=== PATIENT | female | born 1945 | race Caucasian/White ===

== ENCOUNTER 2016-11-19 19:43 | Inpatient (IN) ==
[2016-11-19] MEDS ORDERED: FUROSEMIDE 40 MG/4 ML VIAL IV ONE (20:17)
--- NOTE | 2016-11-19 20:17 | Emergency Department Note ---
General Adult HPI - General Chief complaint: Weakness Stated complaint: Frustrated about Care Time Seen by Provider: 11/19/16 20:13 Mode of arrival: EMS - History of Present Illness HPI Narrative: This patient comes in from the detention because she feels like her weight is not coming down on Lasix fast enough. She says she does feel short of breath although her lungs are clear. Denies chest pain or other symptoms. - Related Data Home Medications Medication Instructions Recorded Confirmed Gabapentin 600 mg PO BID 07/02/15 11/11/16 Insulin Lispro [Humalog] 0 unit SQ ACHS 07/02/15 11/11/16 Sotalol HCl [Sorine] 80 mg PO BID 07/02/15 11/11/16 Hydrocodone/APAP 7.5/325Mg [Palmer 1 tab PO Q4HP PRN 07/03/15 11/11/16 7.5/325Mg] Levothyroxine Sodium [Synthroid] 112 mcg PO QAMAC 07/03/15 11/11/16 atorvastatin 80 mg tablet 80 mg PO QDAY 09/28/15 11/11/16 Albuterol Sulfate [Ventolin] 2 puff INH Q4-6HP PRN 11/10/16 11/11/16 Furosemide [Lasix] 40 mg PO QDAY PRN 11/10/16 11/11/16 Lactobacillus Acidophilus 1 each PO BID 11/10/16 11/11/16 [Acidophilus] levETIRAcetam [Levetiracetam] 500 mg PO BID 11/10/16 11/11/16 Bisacodyl [Dulcolax] 10 mg AR PRN PRN 11/11/16 11/11/16 Fleets Adult 7 - 19 gm AR PRN PRN 11/11/16 11/11/16 Milk of Magnesia 30 ml PO PRN PRN 11/11/16 11/11/16 Multivit-Min/FA/Lycopen/Lutein [A 1 tablet PO DAILY 11/11/16 11/11/16 Thru Z Select Multivit Tab] Plavix 75 mg PO DAILY 11/11/16 11/11/16 Previous Rx's Medication Instructions Recorded Accu-Chek 1 each FS ACHS #30 strip 07/05/15 Insulin Glargine,Hum.rec.anlog 10 unit SQ DAILY 30 Days 07/05/15 [Lantus Solostar] Carvedilol [Coreg] 12.5 mg PO BIDCC #30 tablet 11/14/16 Cefdinir 300 mg PO BID #10 capsule 11/14/16 Isosorbide Dinitrate [Isordil] 20 mg PO TIDAC #60 tablet 11/14/16 hydrALAZINE [Apresoline] 25 mg PO TID #60 tablet 11/14/16 Allergies Allergy/AdvReac Type Severity Reaction Status Date / Time Milk Containing Products AdvReac Mild Gastrointestinal Verified 11/19/16 19:52 Upset Review of Systems All systems ED: reviewed and negative except as stated. Past Medical History - Past Medical History Medical history: Reports: atrial fibrillation, CHF, coronary artery disease, CVA , diabetes, hyperlipidemia, hypertension, thyroid disease, other Surgical history ED: Reports: angioplasty/stent, appendectomy, cataract, hysterectomy, knee replacement, pacemaker/AICD, tonsillectomy, other - Social History Alcohol use: Reports: None Drug use: Reports: none Physical Exam - General Limitations: no limitations General appearance: alert - Head Head exam: atraumatic - Eye Eye exam: Present: normal appearance - ENT ENT exam: normal exam - Neck Neck exam: Present: normal inspection - Chest Chest inspection: Present: normal inspection - Respiratory Respiratory exam: Present: normal lung sounds bilaterally - Cardiovascular Cardiovascular exam: Present: regular rate, normal rhythm, normal heart sounds - Abdominal Exam Abdominal exam: Present: soft. Absent: distention, tenderness - Neurological Exam Neurological exam: Present: alert - Psychiatric Psychiatric exam: Present: normal affect - Skin Skin exam: Present: warm, dry Course Vital Signs Temperature 98.6 F 11/19/16 19:44 Pulse Rate 64 11/19/16 19:44 Respiratory Rate 16 11/19/16 19:44 Blood Pressure 131/59 11/19/16 19:44 Pulse Oximetry (%) 92 11/19/16 19:44 Temperature 98.6 F 11/19/16 19:44 Pulse Rate 60 11/19/16 20:56 Respiratory Rate 16 11/19/16 19:44 Blood Pressure 133/60 11/19/16 20:56 Pulse Oximetry (%) 88 L 11/19/16 20:56 Medical Decision Making - Lab Data Lab results reviewed: Yes I reviewed the patient's lab results. Result diagrams: 11/19/16 20:24 11/19/16 20:23 Lab Results 11/19/16 11/19/16 11/19/16 Range/Units 20:23 20:24 20:24 WBC 4.9 (4.5-11.0) K/mcL RBC 2.74 L (4.00-5.20) M/mcL Hgb 8.1 L (12.0-15.0) g/dL Hct 24.9 L (36.0-48.0) % MCV 91.1 (80.0-100.0) fL MCH 29.4 (26.0-34.0) pg MCHC 32.3 (31.0-36.0) g/dL RDW 16.4 H (11.5-14.5) % Plt Count 211 (140-440) K/mcL MPV 7.9 (7.4-10.4) fL Gran % 61.1 (38.0-78.0) % Lymph % (Auto) 24.6 (15.5-49.0) % Frio % (Auto) 9.1 (1.0-12.0) % Eos % (Auto) 4.1 (0.0-7.0) % Baso % (Auto) 1.1 (0.0-2.0) % Gran # 3.0 (1.8-8.0) K/mcL Lymph # 1.2 L (1.5-4.8) K/mcL Frio # 0.5 (0.1-0.9) K/mcL Eos # 0.2 (0.0-0.7) K/mcL Baso # 0.1 (0.0-0.3) K/mcL Sodium 138 (133-145) mmol/L Potassium 5.7 H (3.3-5.1) mmol/L Chloride 97 (96-108) mmol/L Carbon Dioxide 27 (22-30) mmol/L Anion Gap 14.0 (8-16) BUN 70 H (8-23) mg/dl Creatinine 2.8 H (0.6-1.1) mg/dl GFR Calculation 16 Glucose 129 H (70-105) mg/dL Calcium 8.1 L (8.6-10.4) mg/dl Total Bilirubin 0.2 (0.0-1.0) mg/dL AST 118 H (0-37) U/l ALT 57 H (0-40) U/l Alkaline Phosphatase 138 H (39-117) U/L Troponin T 0.03 (0-0.03) ng/ml NT-Pro-B Natriuret Pep 61384.0 H (0-125) pg/ml Total Protein 5.7 L (5.9-8.4) gm/dL Albumin 3.0 L (3.2-5.2) gm/dL Globulin 2.7 (2.2-3.7) gm/dL Albumin/Globulin Ratio 1.1 (1.0-2.3) - Radiology Data Radiology results reviewed: Yes I reviewed the patient's radiology results. ( chest x-ray consistent with some heart failure) Disposition Clinical Impression: Congestive heart failure Disposition: Xfer As Inpt ([facility]) Condition: Good Referrals: Scott Madrid MD [Primary Care Provider] - Time of Disposition: 21:45
[2016-11-19 20:57] LABS: Basophils # (Auto) 0.1 K/mcL (0.0-0.3); Basophils % (Auto) 1.1 % (0.0-2.0); Eosinophils # (Auto) 0.2 K/mcL (0.0-0.7); Eosinophils % (Auto) 4.1 % (0.0-7.0); Granulocytes % (Auto) 61.1 % (38.0-78.0); Lymphocytes # (Auto) 1.2 K/mcL (1.5-4.8); Lymphocytes % (Auto) 24.6 % (15.5-49.0); Mean Cell Volume 91.1 fL (80.0-100.0); Mean Corpuscular HGB Conc 32.3 g/dL (31.0-36.0); Mean Corpuscular Hemoglobin 29.4 pg (26.0-34.0); Monocytes # (Auto) 0.5 K/mcL (0.1-0.9); Monocytes % (Auto) 9.1 % (1.0-12.0); Platelet Count 211 K/mcL (140-440); RBC 2.74 M/mcL (4.00-5.20); Red Cell Distribution Width 16.4 % (11.5-14.5)
--- NOTE | 2016-11-19 21:03 | XRay Report ---
HISTORY: Reason for Exam:sob FINDINGS: There is a residual pulmonary infiltrate inferiorly and medially in the left lower lobe. There are also small bilateral pleural effusions. Mildly increased interstitial lung markings are present in the right lower lobe. The heart size is normal. Pacemaker is well-positioned. Comparison with the prior exam from 11/12/16 shows little change. IMPRESSION: Persistent mild left lower lobe pneumonia and small bilateral pleural effusions Interpreted and Authenticated by: Juan Viera 11/19/16
[2016-11-19 21:16] LABS: ALT/SGPT 57 U/l (0-40); Albumin/Globulin Ratio 1.1 (1.0-2.3); Alkaline Phosphatase 138 U/L (39-117); Blood Urea Nitrogen 70 mg/dl (8-23)
--- NOTE | 2016-11-19 23:51 | Internal Med History&Physical ---
Medical - H&P: HPI Patient information: Note initiated : 11/19/16 at 11:47 pm Service Date, if different from initiated Date: [] Patient: Shanda Rhodes a 71 y/o F admitted on for Frustrated about Care. Chief Complaint: [] History of present illness: Ms. Rhodes is a 71 year old female who was recently admitted to [facility] for PNA and chf exacerbation. Treated and discharged to [facility], She returns from [facility] today because she was not feeling well, short of breath, fatigued and increased weight. She also notes concern if she was getting her medications water pills and antibiotics appropriately. The patient has h/o diastolic heart failure ( as per last d/c echo done recently in [facility] with normal lvef) she also has CKD, DM, HTN, s/p pacemaker, CAD, CVA, DM neuropathy who has been in and out of the hospital. She notes that she had an episode of syncope and was at [facility] early this month, she was there for a few days, but not sure what was done. She noted some concern about an aneurysm. I will try to obtain these records. She was at [facility], when she presented here on the with fever, shortness of breath and fatigue. She was treated with antibiotics and diuretics and discharged on the back to [facility]. The patient notes that since discharge her condition has gradually worsened. she notes she was weighted and her weight was increasing and she was not happy about it. Her weight at discharge was 150lbs, and in the ER today was reported to be 172 lbs. The patient also reports drowsyness and weakness, some cough, headaches which are chronic. She denies fever or chills but reports does not feel those due to her neuropathy. patient denies any worsening cough. In the ER she was saturating at 88%, CXR shows persitant PNA and unchanged interstitial infiltrates, elevated bnp, rising creat to 2.8 (worse since last admit), elevated K 5.7 (was consuming high K diet) she has a normal wbc In light of her worsening weight, elevated creat and K, as well as bnp. she as admitted to the hospital for further management. Review of systems: CONSTITUTIONAL: No weight loss, fever, chills. Present weakness fatigue and weight gain. HEENT: Eyes: No visual loss, blurred vision, double vision or yellow sclerae. Ears, Nose, Throat: No hearing loss, sneezing, congestion, runny nose or sore throat. SKIN: No rash or itching. CARDIOVASCULAR: No chest pain, chest pressure or chest discomfort. No palpitations, Present Edema RESPIRATORY: Shortness of breath present, no wheezing reported. GASTROINTESTINAL: Present nausea, No vomiting or diarrhea or constipation. No abdominal pain or blood in stools No Jonelle. GENITOURINARY: Denies Burning on urination. Blood in urine, or foul smelling urine NEUROLOGICAL: Present headache, dizziness, NO syncope, paralysis, tremors, numbness or tingling in the extremities. No change in bowel or bladder control. MUSCULOSKELETAL: No muscle, back pain, joint pain or stiffness. HEMATOLOGIC: No bleeding or bruising. No enlarged nodes PSYCHIATRIC: No depression or anxiety. ENDOCRINOLOGIC: No reports of sweating, cold or heat intolerance. No polyuria or polydipsia. ALLERGIES: No hives, eczema or rhinitis. Skin: No rash, no jaundice, cyanosis or pallor. Medical - H&P: [facility] Medical history: Medical History Congestive heart failure (Acute) CHF (congestive heart failure) (Acute) CVA (cerebral vascular accident) (Acute) Community acquired pneumonia (Acute) Diabetes type 1, uncontrolled (Acute) Diabetic ketoacidosis associated with type 2 diabetes mellitus (Acute) Injury of right rotator cuff (Acute) Pneumonia (Acute) Sinusitis (Acute) UTI (urinary tract infection) (Acute) Upper respiratory infection (Acute) Urinary tract infection (Acute) Vasovagal syncope (Acute) Anemia (Chronic) CKD (chronic kidney disease), stage III (Chronic) Hyperparathyroidism due to renal insufficiency (Chronic) Hypertensive renal disease (Chronic) Type 2 diabetes mellitus (Chronic) Family history: reviewed and not pertinent Medical - H&P: Meds Home Medications Medication Instructions Recorded Confirmed Type Albuterol Sulfate [Ventolin] 2 puff INH Q4-6HP PRN 11/10/16 11/11/16 History Furosemide [Lasix] 40 mg PO QDAY PRN 11/10/16 11/11/16 History Lactobacillus Acidophilus 1 each PO BID 11/10/16 11/11/16 History [Acidophilus] levETIRAcetam [Levetiracetam] 500 mg PO BID 11/10/16 11/11/16 History Bisacodyl [Dulcolax] 10 mg DC PRN PRN 11/11/16 11/11/16 History Fleets Adult 7 - 19 gm DC PRN PRN 11/11/16 11/11/16 History Milk of Magnesia 30 ml PO PRN PRN 11/11/16 11/11/16 History Multivit-Min/FA/Lycopen/Lutein [A 1 tablet PO DAILY 11/11/16 11/11/16 History Thru Z Select Multivit Tab] Plavix 75 mg PO DAILY 11/11/16 11/11/16 History Carvedilol [Coreg] 12.5 mg PO BIDCC #30 tablet 11/14/16 Rx Cefdinir 300 mg PO BID #10 capsule 11/14/16 Rx Isosorbide Dinitrate [Isordil] 20 mg PO TIDAC #60 tablet 11/14/16 Rx hydrALAZINE [Apresoline] 25 mg PO TID #60 tablet 11/14/16 Rx Allergies Allergy/AdvReac Type Severity Reaction Status Date / Time Milk Containing Products AdvReac Mild Gastrointestinal Verified 11/19/16 19:52 Upset Medical - H&P: Exam - Constitutional Vitals: Temp Pulse Resp BP Pulse Ox 98.6 F 60 13 144/49 96 11/19/16 19:44 11/19/16 23:32 11/19/16 23:32 11/19/16 23:32 11/19/16 23:32 Exam: GENERAL: The patient is a well-developed, well-nourished in no apparent distress. Is alert and oriented x3. VITAL SIGNS: Reviewed and as noted elsewhere. HEENT: Head is normocephalic and atraumatic. Extraocular muscles are intact. Pupils are equal, round, and reactive to light. Nares appeared normal. Mouth appears any without lesions. Mucous membranes are moist. NECK: Normal to inspection, Supple, No lymphadenopathy or thyromegaly. LUNGS: Air entry equal on both sides and is dimished at the bases, no wheezing, crackles or rhonchi noted. No accessory muscles of respiration HEART: Regular rate and rhythm normal, S1 and S2 heard, no Gallop, S3 or Rub Noted, No Gross murmur heard. leandro pedal edema +++ noted ABDOMEN: Soft, nontender, and nondistended. Positive bowel sounds. No hepatosplenomegaly was noted. EXTREMITIES: No cyanosis, clubbing, rash, lesions or edema. NEUROLOGIC: Cranial nerves II through XII are grossly intact. Motor and Sensory System Grossly Intact PSYCHIATRIC: Normal affect, Normal Mood. Appropriate Behavior. SKIN: No ulceration or wounds noted, No jaundice, No rash noted. Medical - H&P: Reslt - Labs CBC & Chem 7: 11/19/16 20:24 11/19/16 20:23 Labs: Short CBC 11/19/16 Range/Units 20:24 WBC 4.9 (4.5-11.0) K/mcL Hgb 8.1 L (12.0-15.0) g/dL Hct 24.9 L (36.0-48.0) % Plt Count 211 (140-440) K/mcL BMP 11/19/16 20:23 Sodium 138 Potassium 5.7 H Chloride 97 Carbon Dioxide 27 BUN 70 H Creatinine 2.8 H Glucose 129 H Calcium 8.1 L Cardiac Enzymes 11/19/16 Range/Units 20:24 Troponin T 0.03 (0-0.03) ng/ml Liver Function 11/19/16 Range/Units 20:23 Total Bilirubin 0.2 (0.0-1.0) mg/dL AST 118 H (0-37) U/l ALT 57 H (0-40) U/l Alkaline Phosphatase 138 H (39-117) U/L Albumin 3.0 L (3.2-5.2) gm/dL - EKG Data -: EKG Reviewed by Myself Medical - H&P: A/P - Narrative A/P Narrative: A/P Acute Diastolic Heart failure: Failed outpatient diuretic regime, IV lasix for now, Telemtery monitoring, Baker in place, fluid restriction to 1500ml for now. Acute on Chr Kidney disease: Gradually worsening renal funtion: likely due to lasix, however diuretics are necessary for now. Will monitor, Consider nephrology evaluation in AM if renal function worsens. Hyperkalemia: due to high K diet, CKD, Kayexalate today, monitor on tele, no ekg changes noted, IV lasix given which also has kaliuretic effect. PNA: no fever, wbc normal, however x ray does show persistant pna, give one dose of rocephin and zithrmox, check procalcitonin. X ray usually lags clinical improvemet in PNA, and if the patient has completed her course I will hold off on additional antibiotics. CAD/ HTN/ CVA: continue home medications once confirmed DM: On insulin, resume same once confirmed, lantus plus sliding scale. DVT hep sq Diet cardiac/ renal Code full Social History - Tobacco smoking status: Former smoker
[2016-11-20] MEDS ORDERED: ONDANSETRON 4 MG/2 ML VIAL IV PRN (00:07)
[2016-11-20] MEDS ORDERED: cefTRIAXone 1 GM in DEXTROSE 5% IN WATER 50 ML IV ONE (00:07)
[2016-11-20] MEDS ORDERED: DEXTROSE 50% 50 ML VIAL IV PRN (00:07)
[2016-11-20] MEDS ORDERED: AZITHROMYCIN 500 MG in DEXTROSE 5% IN WATER 250 ML IV ONE (00:07)
[2016-11-20] MEDS ORDERED: SODIUM POLYSTYRENE SULFONATE 15 GM/60 ML SUSPENSION PO ONE (00:07)
[2016-11-20] MEDS ORDERED: cefTRIAXone 1 GM VIAL ONE (00:12)
[2016-11-20] MEDS: IPRATROPIUM/ALBUTEROL 3 ML AMPUL.NEB NEB SCH ×4 (01:16→19:25)
[2016-11-20] MEDS ORDERED: IPRATROPIUM/ALBUTEROL 3 ML AMPUL.NEB NEB ONE (01:18)
[2016-11-20 05:09] LABS: Basophils # (Auto) 0 K/mcL (0.0-0.3); Basophils % (Auto) 0.8 % (0.0-2.0); Eosinophils # (Auto) 0.2 K/mcL (0.0-0.7); Granulocytes % (Auto) 60.2 % (38.0-78.0); Lymphocytes # (Auto) 1.4 K/mcL (1.5-4.8); Lymphocytes % (Auto) 26.8 % (15.5-49.0); Mean Cell Volume 93.2 fL (80.0-100.0); Mean Corpuscular HGB Conc 33.2 g/dL (31.0-36.0); Mean Corpuscular Hemoglobin 30.9 pg (26.0-34.0); Monocytes # (Auto) 0.4 K/mcL (0.1-0.9); Monocytes % (Auto) 8.2 % (1.0-12.0); Platelet Count 180 K/mcL (140-440); RBC 2.54 M/mcL (4.00-5.20); Red Cell Distribution Width 16.4 % (11.5-14.5)
[2016-11-20 05:27] LABS: ALT/SGPT 59 U/l (0-40); Albumin 2.7 gm/dL (3.2-5.2); Alkaline Phosphatase 138 U/L (39-117); Bilirubin,Direct < 0.2 mg/dL (0.0-0.3); Blood Urea Nitrogen 73 mg/dl (8-23); Gamma Glutamyl Transpeptidase 83 U/L (5-36); Magnesium 2.2 mg/dL (1.6-2.5); Uric Acid 9.4 mg/dL (2.5-8.0)
[2016-11-20] MEDS: INSULIN LISPRO 1 UNIT/0.01 ML UNIT SQ SCH ×4 (08:19→21:03)
[2016-11-20 09:50] LABS: Retic Absolute 2.4 % (0.5-1.5)
[2016-11-20] MEDS: PANTOPRAZOLE 40 MG TABLET PO SCH (10:51)
[2016-11-20] MEDS: CARVEDILOL 3.125 MG TABLET PO SCH ×2 (10:51→17:53)
[2016-11-20] MEDS: ATORVASTATIN 20 MG TABLET PO SCH (10:51)
[2016-11-20] MEDS: MULTIVIT,THER IRON,CA,FA & MIN 1 TABLET PO SCH (10:52)
[2016-11-20] MEDS: GABAPENTIN 300 MG CAPSULE PO SCH ×2 (10:52→21:03)
[2016-11-20] MEDS: levETIRAcetam 500 MG TABLET PO SCH ×2 (10:52→21:03)
[2016-11-20] MEDS: HYDROCODONE/APAP 7.5/325MG TABLET PO PRN (10:53)
[2016-11-20] MEDS: HEPARIN 5,000 UNIT/ML VIAL SQ SCH ×2 (10:55→21:03)
[2016-11-20] MEDS: FUROSEMIDE 40 MG/4 ML VIAL IV SCH ×2 (10:55→21:03)
[2016-11-20] MEDS: LEVOTHYROXINE SODIUM 112 MCG TABLET PO SCH (10:56)
[2016-11-20] MEDS: INSULIN GLARGINE, HUMAN 1 UNIT/0.01 ML SQ SCH (10:57)
[2016-11-20] MEDS: LACTOBACILLUS 1 CAPSULE PO SCH ×2 (10:59→21:02)
[2016-11-20] MEDS: SOTALOL 80 MG TABLET PO SCH ×2 (10:59→21:02)
--- NOTE | 2016-11-20 12:49 | Internal Med Progress Note ---
Medical - PN: Subj Patient information: Note initiated : 11/20/16 at 12:39 pm Service Date, if different from initiated Date: [] Patient: Shanda Rhodes a 71 y/o F admitted on 11/19/16 for Frustrated about Care. Chief Complaint: [] Interval history: Ms. Rhodes is a 71 year old female who was recently admitted to [facility] for PNA and chf exacerbation. Treated and discharged to [facility], She returns from [facility] today because she was not feeling well, short of breath, fatigued and increased weight. She also notes concern if she was getting her medications water pills and antibiotics appropriately. The patient has h/o diastolic heart failure ( as per last d/c echo done recently in [facility] with normal lvef) she also has CKD, DM, HTN, s/p pacemaker, CAD , CVA, DM neuropathy who has been in and out of the hospital. She notes that she had an episode of syncope and was at [facility] early this month, she was there for a few days, but not sure what was done. She noted some concern about an aneurysm. I will try to obtain these records. She was at [facility], when she presented here on the with fever, shortness of breath and fatigue. She was treated with antibiotics and diuretics and discharged on the back to [facility]. The patient notes that since discharge her condition has gradually worsened. she notes she was weighted and her weight was increasing and she was not happy about it. Her weight at discharge was 150lbs, and in the ER today was reported to be 172 lbs. The patient also reports drowsiness and weakness, some cough, headaches which are chronic. She denies fever or chills but reports does not feel those due to her neuropathy. patient denies any worsening cough. In the ER she was saturating at 88%, CXR shows persistent PNA and unchanged interstitial infiltrates, elevated bnp, rising creat to 2.8 (worse since last admit), elevated K 5.7 (was consuming high K diet ) she has a normal wbc In light of her worsening weight, elevated creat and K, as well as bnp. she as admitted to the hospital for further management. 11/20/16 Pt seen examined, sitting comfortably in her chair, noting that she has pain in her legs, and would like her pain medications. She denies any chest pains, and her shortness of breath is much better. The patient is neg 2 L since yesterday and doing much better, her procalcitonin is negative, indicating low probability of lower resp infection, I stopped her antibiotics, her X ray will be repeated in 3-4 weeks to check on resolution of PNA, clinically she does not seem to have PNA. Her renal function is still at 2.8, and we will be consulting nephrology for same, ua, prot creat and abdominal usg ordered. [facility] the [facility], apparently she and her daughter went to a birthday democr[place] on the 17 of november and were tipsy when they returned. The patient then was admitted on the for fluid overload and worsening heart failure. The patient discharge summary from [facility] and echo done in october reviewed, the patient was admitted for AMS noted to have Seizure disorder and was started on keppra for same. Her Echo shows lvef of 55% but grade 3 diastolic dysfunction. Pts lft noted to be elevated will get usg abdomen to cover liver, I am wondering if alcohol consumption resulted in her liver abnormalities. Pertinent ROS: Prsent headache,No dizziness Denies chest pain, palpitations Denies cough , shortness of breath improved. Denies abdominal pain, nausea or vomiting. - Constitutional Vitals: Vital Signs Temp Pulse Resp BP Pulse Ox 97.5 F L 61 20 173/75 96 11/20/16 11:58 11/20/16 08:00 11/20/16 11:58 11/20/16 11:58 11/20/16 08:00 Period Temp Pulse Resp BP Sys/Courtney Pulse Ox Last 24 Hr 96.7 F-97.7 F 60-72 14-22 148-173/65-75 96-100 Intake and Output 11/19/16 11/20/16 11/20/16 21:59 05:59 13:59 Intake Total 450 / 450 Output Total 1100 / 1100 1000 / 1000 Balance -1100 / -1100 -550 / -550 Weight 168 lb 9.6 oz Intake & Output: Intake & Output 11/19/16 11/20/16 11/20/16 21:59 05:59 13:59 Intake Total 450 / 450 Output Total 1100 / 1100 1000 / 1000 Balance -1100 / -1100 -550 / -550 Weight 168 lb 9.6 oz Intake: IV 250 / 250 Zithromax 500 mg In 250 / 250 Dextrose 5% in Water 250 ml @ 250 mls/hr IV ONCE ONE Rx#:[id number] Oral 200 / 200 Output: Urine Catheter Amount 1100 / 1100 1000 / 1000 Other: # Bowel Movements 1 1 Exam: Constitutional; Afebrile, cooperative, alert, not in distress. Eyes- No icterus, , No periorbital swelling Ears- Ext ear normal, hearing normal to conversation. Neck- Midline trachea, supple Respiratory system: Air Entry equal on both sides, No crackles or wheezing, no rhonchi. decreased air entry at very base. CVS- Rate rhythm regular, S1,S2 heard, no gallop, no rub. Abdomen- Soft nontender abdomen, no organomegaly, no tenderness, no guarding or rigidity, IV THERAPY NURSE- AOOx3, moving all extremities, no gross focal deficit noted. Medical - PN: Obj Da - Labs CBC & Chem 7: 11/20/16 03:50 11/20/16 03:55 Labs: Abnormal Lab Results 11/20/16 11/20/16 11/20/16 08:32 08:32 03:55 RBC Hgb Hct RDW Lymph # Absolute Retic 2.4 H Haptoglobin 312 H Potassium 5.2 H BUN 73 H Creatinine 2.8 H Uric Acid 9.4 H Calcium 8.1 L Phosphorus 6.6 H* Transferrin % Sat 14 L Ferritin 555.0 H GGT 83 H AST 123 H ALT 59 H Alkaline Phosphatase 138 H Lactate Dehydrogenase 304 H Total Protein 5.3 L Albumin 2.7 L Vitamin B12 1116 H 11/20/16 03:50 RBC 2.54 L Hgb 7.8 L Hct 23.7 L RDW 16.4 H Lymph # 1.4 L Absolute Retic Haptoglobin Potassium BUN Creatinine Uric Acid Calcium Phosphorus Transferrin % Sat Ferritin GGT AST ALT Alkaline Phosphatase Lactate Dehydrogenase Total Protein Albumin Vitamin B12 Meds: Medications Acetaminophen/Hydrocodone Bitart ([place] 7.5/325mg) 1 tab PO Q4HP PRN PRN Reason: Pain Last Admin: 11/20/16 10:53 Dose: 1 tab Albuterol/Ipratropium (Duoneb) 3 ml NEB Q6HRT [facility] Last Admin: 11/20/16 07:04 Dose: 3 ml Atorvastatin Calcium (Lipitor) 80 mg PO DAILY [facility] Last Admin: 11/20/16 10:51 Dose: 80 mg [facility] ([facility]g) [facility] Last Admin: 11/20/16 10:51 Dose: 12.5 mg Clopidogrel Bisulfate (Plavix) 75 mg PO DAILY [facility] Dextrose (Dextrose 50%) 0 ml IV UD PRN PRN Reason: Hypoglycemia Diagnostic Test (Pha) (Accu-Chek) 1 each FS ACHS [facility] Last Admin: 11/20/16 08:19 Dose: 1 each Furosemide (Lasix) 40 mg IV Q12 [facility] Last Admin: 11/20/16 10:55 Dose: 40 mg Gabapentin (Neurontin) 300 mg PO BID [facility] Last Admin: 11/20/16 10:52 Dose: 300 mg Heparin Sodium (Porcine) (Heparin) 5,000 unit SQ Q12 [facility] Last Admin: 11/20/16 10:55 Dose: 5,000 unit Insulin Glargine (Lantus) 10 unit SQ DAILY [facility] Last Admin: 11/20/16 10:57 Dose: 10 unit Insulin Human Lispro (Humalog) 0 unit SQ [facility] PRN Reason: Protocol Last Admin: 11/20/16 08:19 Dose: Not Given Iron Carb/Multivit/Well Drill Operator Cable Tool/Folic Acid (Multivitamin W/Minerals) 1 tab PO DAILY [facility] Last Admin: 11/20/16 10:52 Dose: 1 tab Lactobacillus Rhamnosus (Culturelle) 1 cap PO BID [facility] Last Admin: 11/20/16 10:59 Dose: 1 cap Levetiracetam (Keppra) 500 mg PO BID [facility] Last Admin: 11/20/16 10:52 Dose: 500 mg [facility]othy[facility]ine [facility]) [facility] Last Admin: 11/20/16 10:56 Dose: 112 mcg Ondansetron HCl (Zofran) 4 mg IV Q4HP PRN PRN Reason: Nausea And Vomiting Pantoprazole Sodium (Protonix) 40 mg PO QAMAC [facility] Last Admin: 11/20/16 10:51 Dose: 40 mg Sotalol HCl (Betapace) 80 mg PO BID [facility] Last Admin: 11/20/16 10:59 Dose: Not Given Medical - PN: A/P - Time Spent With Patient Total time spent is greater than 50% in coordination of care (as documented) at patient's floor/unit and/or counseling patient: - Narrative A/P Narrative: A/P Acute Diastolic Heart failure: Failed outpatient diuretic regime, IV lasix for now, Telemetry monitoring, Baker in place, fluid restriction to 1500ml for now. she is negative 2L so far and clinically improved. Acute on Chr Kidney disease: Gradually worsening renal function: likely due to lasix, however diuretics are necessary for now. Nephrology consulted, abdomen usg, ua, urine prot creat ratio. Hyperkalemia: due to high K diet, CKD, monitor on tele, no ekg changes noted, IV lasix given which also has kaliuretic effect. K 5.2 today, improving, monitor on tele, Abnl LFT : Likely from etoh, check liver ultrasound. will check hepatitis panel in AM PNA: no fever, wbc normal, however x ray does show persistant pna,procalcitonin is neg, Will d/c abx and monitor, repeat x ray in 4 weeks CAD/ HTN/ CVA: continue home medications once confirmed Seizure disorder On keppra, seizure precautions DM neuropathy: On neurontin, home dose of opiates. DM: On insulin, resume same once confirmed, lantus plus sliding scale. DVT hep sq Diet cardiac/ renal Code full Medical - PN: Qual - VTE Deep Vein Thrombosis/Pulmonary Embolism Present on Admission: No
[2016-11-20 14:12] LABS: Appearance,Urine CLEAR; Bacteria,Urine 0 /hpf (0); Bilirubin,Urine NEG (NEG); Color,Urine STRAW; Glucose,Urine (UA) 50 mg/dL (NEG); Leukocyte Esterase,Urine NEG /uL (NEG); Mucus,Urine FEW /hpf (0); Nitrate,Urine NEG (NEG); Protein,Urine 100 mg/dL (NEG); Specific Gravity,Urine 1.009 (1.000-1.035); Urine Blood 0.03 mg/dL (<0.03); Urine RBC 19 /hpf (0-1); Urine Squamous Epithelial Cell 0 /hpf (0-4); Urine WBC 1 /hpf (0-4); Urobilinogen,Urine NEG (NEG)
--- NOTE | 2016-11-20 15:15 | Nephrology Consult Note ---
[id number] Service Date, if different from initiated Date: [] Patient: Shanda Rhodes a 71 y/o F admitted on 11/19/16 for Frustrated about Care. Chief Complaint: [] Consult date: 11/20/16 chronic renal failure, hyperkalemia Requesting physician: Samra Ram - Chief Complaint edema, CHF - History of Present Illness Ms Rhodes is a 71 y/o pleasant white female with PMH of HTN, DM type 1, CVA, CKD and other multiple medical issues who is admitted with diastolic heart failure Patient apparently has had recurrent hospitalisation in the recent past, was hospitalised at [facility] with seizures, aspiration PNA, acute on chronic renal failure, s.creatinine that hospital stay was 2.4-2.8, she was discharged to [facility], then hospitalised again with CHF, PNA, was treated with diuretics, s.creatinine on discharge was 2.4 Patient presented to ED with progressive weight gain, worsening edema, SOB, noted to have hyperkalemia with worsening renal function and was hospitalised for management of this She c/o edema LE, weakness, SOB No CP feels tired admits to high sodium diet no urinary symptoms Review of Systems All systems PM: reviewed and no additional remarkable complaints except as stated (as in HPI) Past History Past medical history: htn dm type 1 diabetic neuropathy CKD from diabetic kidney disease and nephrotic range proteinuria h/o CVA h/o dyslipidemia Past surgical history: no significant Past family history: not pertinent Past social history: former smoker, drinks alcohol occasionally Medications and Allergies Home Medications Medication Instructions Recorded Confirmed Type Gabapentin 600 mg PO BID 07/02/15 11/20/16 History Insulin Lispro [Humalog] 0 unit SQ ACHS 07/02/15 11/20/16 History Sotalol HCl [Sorine] 80 mg PO BID 07/02/15 11/20/16 History Hydrocodone/APAP 7.5/325Mg [[place] 1 tab PO Q4HP PRN 07/03/15 11/20/16 History 7.5/325Mg] Levothyroxine Sodium [Synthroid] 112 mcg PO QAMAC 07/03/15 11/20/16 History Accu-Chek 1 each FS ACHS #30 strip 07/05/15 11/20/16 Rx atorvastatin 80 mg tablet 80 mg PO QDAY 09/28/15 11/20/16 History Albuterol Sulfate [Ventolin] 2 puff INH Q4-6HP PRN 11/10/16 11/20/16 History Furosemide [Lasix] 40 mg PO QDAY PRN 11/10/16 11/20/16 History Lactobacillus Acidophilus 1 each PO BID 11/10/16 11/20/16 History [Acidophilus] levETIRAcetam [Levetiracetam] 500 mg PO BID 11/10/16 11/20/16 History Multivit-Min/FA/Lycopen/Lutein [A 1 tablet PO DAILY 11/11/16 11/20/16 History Thru [facility] Multivit Tab] Carvedilol [Coreg] 12.5 mg PO BIDCC #30 tablet 11/14/16 11/20/16 Rx Isosorbide Dinitrate [Isordil] 20 mg PO TIDAC #60 tablet 11/14/16 11/20/16 Rx hydrALAZINE [Apresoline] 25 mg PO TID #60 tablet 11/14/16 11/20/16 Rx Clopidogrel Bisulfate [Plavix] 75 mg PO DAILY 11/20/16 11/20/16 History Insulin Glargine,Hum.rec.anlog 10 unit SQ DAILY 11/20/16 11/20/16 History [Lantus Solostar] Allergies Allergy/AdvReac Type Severity Reaction Status Date / Time Milk Containing Products AdvReac Mild Gastrointestinal Verified 11/19/16 19:52 Upset Exam - Vital Signs Vital signs: Temp Pulse Resp BP Pulse Ox 97.5 F L 70 18 173/75 96 11/20/16 11:58 11/20/16 13:42 11/20/16 13:42 11/20/16 11:58 11/20/16 08:00 - General Appearance General appearance: appears started age, chronically ill EENT: mucous membranes moist Neck: JVD Respiratory: clear Cardiology: no rub, edema, normal S1, normal S2 Gastrointestinal: no tenderness, no guarding Integumentary: no rash, warm and dry Neurologic: alert and oriented x3 Musculoskeletal: no erythema, no cyanosis Psychiatric: mood/affect appropriate Results - Lab Results 11/20/16 03:50 11/20/16 03:55 Most recent lab results Calcium 8.1 mg/dl (8.6-10.4) L 11/20/16 03:55 Phosphorus 6.6 mg/dL (2.7-4.5) H* 11/20/16 03:55 Magnesium 2.2 mg/dL (1.6-2.5) 11/20/16 03:55 Assessment and Plan (1) CKD (chronic kidney disease), stage IV acute on chronic renal failure s.creatinine 1.5-1.6 a year ago, 2.4-2.9 on recent hospitalisations ? has acute decline vs CKD progression h/o nephrotic range proteinuria in the past and diabetic kidney disease Patient has uncontrolled systolic blood pressure and she is clinically fluid overloaded agree with use of IV lasix given her current renal function and use of sotalol will need to monitor QTC She has severe anemia with low Tsat so need to r/o occult GI bleed, if negative will start IV iron replacement so that she can be on ENEIDA if needed will start phos binders for her elevated phos level ct coreg once renal function stabilises will add ACEI or ARB, given hyperkalemia and worsening renal function will hold off on this continue to monitor I/O,. renal function dose meds to egfr will follow along Anemia from multifactorial etiology, iron deficiency and CKD contributing renal osteodystrophy as above fluid overload from diastolic HF and declining renal function HTN Thank you for giving me an opportunity to participate in Ms Rhodes's medical care , appreciate it Status: Acute (2) CHF (congestive heart failure) Status: Acute
[2016-11-20] MEDS: CALCIUM ACETATE 667 MG CAPSULE PO SCH (17:53)
[2016-11-20] MEDS ORDERED: NON FORMULARY MEDICATION 1 DOSE MISCELL (Gabapentin [Gabapentin] 600 MG) PO SCH (21:00)
[2016-11-21] MEDS: IPRATROPIUM/ALBUTEROL 3 ML AMPUL.NEB NEB SCH ×4 (02:19→19:10)
[2016-11-21 06:11] LABS: Basophils # (Auto) 0 K/mcL (0.0-0.3); Basophils % (Auto) 0.5 % (0.0-2.0); Eosinophils # (Auto) 0.1 K/mcL (0.0-0.7); Eosinophils % (Auto) 2.2 % (0.0-7.0); Granulocytes % (Auto) 77.7 % (38.0-78.0); Lymphocytes # (Auto) 0.7 K/mcL (1.5-4.8); Lymphocytes % (Auto) 13.4 % (15.5-49.0); Mean Cell Volume 90.1 fL (80.0-100.0); Mean Corpuscular HGB Conc 33.1 g/dL (31.0-36.0); Mean Corpuscular Hemoglobin 29.8 pg (26.0-34.0); Monocytes # (Auto) 0.3 K/mcL (0.1-0.9); Monocytes % (Auto) 6.2 % (1.0-12.0); Platelet Count 173 K/mcL (140-440); RBC 2.68 M/mcL (4.00-5.20); Red Cell Distribution Width 16.5 % (11.5-14.5)
[2016-11-21 06:29] LABS: ALT/SGPT 45 U/l (0-40); Albumin 2.6 gm/dL (3.2-5.2); Alkaline Phosphatase 154 U/L (39-117); Bilirubin,Direct < 0.2 mg/dL (0.0-0.3); Blood Urea Nitrogen 74 mg/dl (8-23); Gamma Glutamyl Transpeptidase 84 U/L (5-36); Magnesium 2.2 mg/dL (1.6-2.5); Uric Acid 9.8 mg/dL (2.5-8.0)
[2016-11-21] MEDS: LEVOTHYROXINE SODIUM 112 MCG TABLET PO SCH (08:33)
[2016-11-21] MEDS: PANTOPRAZOLE 40 MG TABLET PO SCH (08:33)
[2016-11-21] MEDS: INSULIN LISPRO 1 UNIT/0.01 ML UNIT SQ SCH ×4 (09:09→21:23)
[2016-11-21] MEDS: GABAPENTIN 300 MG CAPSULE PO SCH ×2 (09:10→21:15)
[2016-11-21] MEDS: FUROSEMIDE 40 MG/4 ML VIAL IV SCH ×2 (09:10→21:16)
[2016-11-21] MEDS: ATORVASTATIN 20 MG TABLET PO SCH (09:10)
[2016-11-21] MEDS: INSULIN GLARGINE, HUMAN 1 UNIT/0.01 ML SQ SCH (09:10)
[2016-11-21] MEDS: MULTIVIT,THER IRON,CA,FA & MIN 1 TABLET PO SCH (09:11)
[2016-11-21] MEDS: CALCIUM ACETATE 667 MG CAPSULE PO SCH ×3 (09:11→17:55)
[2016-11-21] MEDS: levETIRAcetam 500 MG TABLET PO SCH ×2 (09:11→21:15)
[2016-11-21] MEDS: CLOPIDOGREL 75 MG TABLET PO SCH (09:11)
[2016-11-21] MEDS: HEPARIN 5,000 UNIT/ML VIAL SQ SCH ×2 (09:11→21:15)
[2016-11-21] MEDS: CARVEDILOL 3.125 MG TABLET PO SCH ×2 (09:12→17:55)
[2016-11-21] MEDS: LACTOBACILLUS 1 CAPSULE PO SCH ×2 (09:13→21:15)
[2016-11-21] MEDS: SOTALOL 80 MG TABLET PO SCH ×2 (09:22→21:15)
--- NOTE | 2016-11-21 11:28 | Internal Med Progress Note ---
Medical - PN: Subj Patient information: Note initiated : 11/21/16 at 11:25 am Service Date, if different from initiated Date: [] Patient: Shanda Rhodes a 71 y/o F admitted on 11/19/16 for Frustrated about Care. Chief Complaint: [] Interval history: Ms. Rhodes is a 71 year old female who was recently admitted to [facility] for PNA and chf exacerbation. Treated and discharged to [facility], She returns from [facility] today because she was not feeling well, short of breath, fatigued and increased weight. She also notes concern if she was getting her medications water pills and antibiotics appropriately. The patient has h/o diastolic heart failure ( as per last d/c echo done recently in [facility] with normal lvef) she also has CKD, DM, HTN, s/p pacemaker, CAD , CVA, DM neuropathy who has been in and out of the hospital. She notes that she had an episode of syncope and was at [facility] early this month, she was there for a few days, but not sure what was done. She noted some concern about an aneurysm. I will try to obtain these records. She was at [facility], when she presented here on the with fever, shortness of breath and fatigue. She was treated with antibiotics and diuretics and discharged on the back to [facility]. The patient notes that since discharge her condition has gradually worsened. she notes she was weighted and her weight was increasing and she was not happy about it. Her weight at discharge was 150lbs, and in the ER today was reported to be 172 lbs. The patient also reports drowsiness and weakness, some cough, headaches which are chronic. She denies fever or chills but reports does not feel those due to her neuropathy. patient denies any worsening cough. In the ER she was saturating at 88%, CXR shows persistent PNA and unchanged interstitial infiltrates, elevated bnp, rising creat to 2.8 (worse since last admit), elevated K 5.7 (was consuming high K diet ) she has a normal wbc In light of her worsening weight, elevated creat and K, as well as bnp. she as admitted to the hospital for further management. 11/20/16 Pt seen examined, sitting comfortably in her chair, noting that she has pain in her legs, and would like her pain medications. She denies any chest pains, and her shortness of breath is much better. The patient is neg 2 L since yesterday and doing much better, her procalcitonin is negative, indicating low probability of lower resp infection, I stopped her antibiotics, her X ray will be repeated in 3-4 weeks to check on resolution of PNA, clinically she does not seem to have PNA. Her renal function is still at 2.8, and we will be consulting nephrology for same, ua, prot creat and abdominal usg ordered. patient chart reviewed at the care home, apparently she and her daughter went to a birthday green party on the 17 of november and were tipsy when they returned. The patient then was admitted on the for fluid overload and worsening heart failure. The patient discharge summary from [facility] and echo done in october reviewed, the patient was admitted for AMS noted to have Seizure disorder and was started on keppra for same. Her Echo shows lvef of 55% but grade 3 diastolic dysfunction. Pts lft noted to be elevated will get usg abdomen to cover liver, I am wondering if alcohol consumption resulted in her liver abnormalities. 11/21: Pt seen examined, drowsy today, but labs seem to be improving, She is now neg 10 lbs, approx 3 L, oxygen requirement is 1-3 L, the patient veronica any acute complaints, did work with therapy this AM and sleeping at noon. Patient bun continues go go up,k Creat improved to 2.6, Nephrology following. Continue IV diuresis for diastolic heart failure for now. aggresive pul toilet Pertinent ROS: Denies headache, dizziness Denies chest pain, palpitations Denies cough or shortness of breath Denies abdominal pain, nausea or vomiting. - Constitutional Vitals: Vital Signs Temp Pulse Resp BP Pulse Ox 97.1 F L 66 16 165/63 94 11/21/16 07:38 11/21/16 09:26 11/21/16 09:26 11/21/16 09:26 11/21/16 09:26 Period Temp Pulse Resp BP Sys/Courtney Pulse Ox Last 24 Hr 97.1 F-99.0 F 60-70 14-20 119-173/42-75 92-98 Intake and Output 11/20/16 11/21/16 11/21/16 21:59 05:59 13:59 Intake Total 720 / 720 100 / 100 300 / 300 Output Total 1949 1000 / 1000 400 / 400 Balance -1230 / -1230 -900 / -900 -100 / -100 Weight 164 lb 14.4 oz Intake & Output: Intake & Output 11/20/16 11/21/16 11/21/16 21:59 05:59 13:59 Intake Total 720 / 720 100 / 100 300 / 300 Output Total 1949 1000 / 1000 400 / 400 Balance -1230 / -1230 -900 / -900 -100 / -100 Weight 164 lb 14.4 oz Intake: Oral 720 / 720 100 / 100 300 / 300 Output: Urine Catheter Amount 1949 1000 / 1000 400 / 400 Other: Meal Dinner Breakfast Percent of Meal Consumed 100% 100% Feeding Ability Independent Independent # Bowel Movements 1 1 # of times incontinent of 1 1 Bowels Exam: Constitutional; Afebrile, cooperative, sleepy, not in distress. Eyes- No icterus, , No periorbital swelling Ears- Ext ear normal, hearing normal to conversation. Neck- Midline trachea, supple Respiratory system: Air Entry equal on both sides, No crackles or wheezing, no rhonchi. CVS- Rate rhythm regular, S1,S2 heard, no gallop, no rub. Abdomen- Soft nontender abdomen, no organomegaly, no tenderness, no guarding or rigidity, [employer]- AOOx3, moving all extremities, no gross focal deficit noted. sleepy. Medical - PN: Obj Da - Labs CBC & Chem 7: 11/21/16 04:05 11/21/16 04:05 Labs: Abnormal Lab Results 11/21/16 11/21/16 11/20/16 04:05 04:05 13:22 RBC 2.68 L Hgb 8.0 L Hct 24.1 L RDW 16.5 H Lymph % (Auto) 13.4 L Lymph # 0.7 L Absolute Retic Haptoglobin Potassium BUN 74 H Creatinine 2.6 H Glucose 238 H Uric Acid 9.8 H Calcium 8.4 L Phosphorus 6.3 H* Transferrin % Sat Ferritin GGT 84 H AST 62 H ALT 45 H Alkaline Phosphatase 154 H Lactate Dehydrogenase 253 H Total Protein 5.2 L Albumin 2.6 L Vitamin B12 Urine Protein 100 A Urine Glucose (UA) 50 A Urine Occult Blood 0.03 A Urine RBC 19 H U [place] Prot/Creat Ratio 11/20/16 11/20/16 11/20/16 13:22 08:32 08:32 RBC Hgb Hct RDW Lymph % (Auto) Lymph # Absolute Retic 2.4 H Haptoglobin 312 H Potassium BUN Creatinine Glucose Uric Acid Calcium Phosphorus Transferrin % Sat 14 L Ferritin 555.0 H GGT AST ALT Alkaline Phosphatase Lactate Dehydrogenase Total Protein Albumin Vitamin B12 1116 H Urine Protein Urine Glucose (UA) Urine Occult Blood Urine RBC U [place] Prot/Creat Ratio 5.85 H 11/20/16 11/20/16 03:55 03:50 RBC 2.54 L Hgb 7.8 L Hct 23.7 L RDW 16.4 H Lymph % (Auto) Lymph # 1.4 L Absolute Retic Haptoglobin Potassium 5.2 H BUN 73 H Creatinine 2.8 H Glucose Uric Acid 9.4 H Calcium 8.1 L Phosphorus 6.6 H* Transferrin % Sat Ferritin GGT 83 H AST 123 H ALT 59 H Alkaline Phosphatase 138 H Lactate Dehydrogenase 304 H Total Protein 5.3 L Albumin 2.7 L Vitamin B12 Urine Protein Urine Glucose (UA) Urine Occult Blood Urine RBC U [place] Prot/Creat Ratio Meds: Medications Acetaminophen/Hydrocodone Bitart ([place] 7.5/325mg) 1 tab PO Q4HP PRN PRN Reason: Pain Last Admin: 11/20/16 10:53 Dose: 1 tab Albuterol/Ipratropium (Duoneb) 3 ml NEB Q6HRT [facility] Last Admin: 11/21/16 07:04 Dose: 3 ml Atorvastatin Calcium (Lipitor) 80 mg PO DAILY [facility] Last Admin: 11/21/16 09:10 Dose: 80 mg Calcium Acetate (Phoslo) 667 mg PO TIDCC [facility] Last Admin: 11/21/16 09:11 Dose: 667 mg Carvedilol (Coreg) 12.5 mg PO BIDCC [facility] Last Admin: 11/21/16 09:12 Dose: 12.5 mg Clopidogrel Bisulfate (Plavix) 75 mg PO DAILY [facility] Last Admin: 11/21/16 09:11 Dose: 75 mg Dextrose (Dextrose 50%) 0 ml IV UD PRN PRN Reason: Hypoglycemia Diagnostic Test (Pha) (Accu-Chek) 1 each FS ACHS [facility] Last Admin: 11/21/16 07:22 Dose: 1 each Furosemide (Lasix) 40 mg IV Q12 [facility] Last Admin: 11/21/16 09:10 Dose: 40 mg Gabapentin (Neurontin) 300 mg PO BID [facility] Last Admin: 11/21/16 09:10 Dose: 300 mg Heparin Sodium (Porcine) (Heparin) 5,000 unit SQ Q12 [facility] Last Admin: 11/21/16 09:11 Dose: 5,000 unit Insulin Glargine (Lantus) 15 unit SQ DAILY [facility] Iron Carb/Multivit/[place]/Folic Acid (Multivitamin W/Minerals) 1 tab PO DAILY [facility] Last Admin: 11/21/16 09:11 Dose: 1 tab Lactobacillus Rhamnosus (Culturelle) 1 cap PO BID [facility] Last Admin: 11/21/16 09:13 Dose: 1 cap Levetiracetam (Keppra) 500 mg PO BID [facility] Last Admin: 11/21/16 09:11 Dose: 500 mg Levothyroxine Sodium (Synthroid) 112 mcg PO QAMAC [facility] Last Admin: 11/21/16 08:33 Dose: 112 mcg Ondansetron HCl (Zofran) 4 mg IV Q4HP PRN PRN Reason: Nausea And Vomiting Pantoprazole Sodium (Protonix) 40 mg PO QAMAC [facility] Last Admin: 11/21/16 08:33 Dose: 40 mg Sotalol HCl (Betapace) 80 mg PO BID [facility] Last Admin: 11/21/16 09:22 Dose: 80 mg Medical - PN: A/P - Time Spent With Patient Total time spent is greater than 50% in coordination of care (as documented) at patient's floor/unit and/or counseling patient: - Narrative A/P Narrative: A/P Acute Diastolic Heart failure: Failed outpatient diuretic regime, IV lasix for now, Telemetry monitoring, Baker in place, fluid restriction to 1500ml for now. she is improving clinically. Drowsy: etiolgoy? we resumed her home meds, only one dose of narcotic, rising bun? gabapentin? monitor for now. Acute on Chr Kidney disease: Gradually worsening renal function: likely due to lasix, however diuretics are necessary for now. nephrology consult appreciated. Hyperkalemia: Improved to 4.7 monitor. Abnl LFT : Likely from etoh,lft improving, await hepatitis panel, liver usg pending. PNA: no fever, normal procalcitonin, normal wbc, s/p ABX, no antibiotics for now. CAD/ HTN/ CVA: continue home medications once confirmed Seizure disorder On keppra, seizure precautions DM neuropathy: On neurontin, home dose of opiates. DM: On insulin,dm uncontrolled, increase dose of lantus to 15, change sliding scale to medium. DVT hep sq Diet cardiac/ renal/ carb controlled with fluid restriction. Code full Medical - PN: Qual - VTE Deep Vein Thrombosis/Pulmonary Embolism Present on Admission: No
--- NOTE | 2016-11-21 13:13 | Ultrasound Report ---
CLINICAL INFORMATION: Abnormal LFTs and renal failure COMPARISON: Abdomen and pelvic CT from 07/21/2012. FINDINGS: The gallbladder and bile ducts, liver, both kidneys, pancreas, spleen, aorta and inferior vena cava are all normal in size and echotexture without focal abnormality. No free fluid identified. IMPRESSION: Normal abdominal ultrasound. Small bilateral pleural effusions are incidentally noted Interpreted and Authenticated by: Pradeep Martines 11/21/16
[2016-11-22 05:30] LABS: Basophils # (Auto) 0 K/mcL (0.0-0.3); Basophils % (Auto) 0.8 % (0.0-2.0); Eosinophils # (Auto) 0.1 K/mcL (0.0-0.7); Granulocytes % (Auto) 71.2 % (38.0-78.0); Lymphocytes # (Auto) 0.8 K/mcL (1.5-4.8); Lymphocytes % (Auto) 17.5 % (15.5-49.0); Mean Cell Volume 89.7 fL (80.0-100.0); Mean Corpuscular Hemoglobin 30.5 pg (26.0-34.0); Monocytes # (Auto) 0.4 K/mcL (0.1-0.9); Monocytes % (Auto) 7.5 % (1.0-12.0); Platelet Count 205 K/mcL (140-440); RBC 2.54 M/mcL (4.00-5.20); Red Cell Distribution Width 16.7 % (11.5-14.5)
[2016-11-22] MEDS: IPRATROPIUM/ALBUTEROL 3 ML AMPUL.NEB NEB SCH ×4 (05:53→19:29)
[2016-11-22 05:54] LABS: ALT/SGPT 35 U/l (0-40); Albumin 2.3 gm/dL (3.2-5.2); Albumin/Globulin Ratio 0.8 (1.0-2.3); Alkaline Phosphatase 146 U/L (39-117); Bilirubin,Direct < 0.2 mg/dL (0.0-0.3); Blood Urea Nitrogen 76 mg/dl (8-23); Gamma Glutamyl Transpeptidase 79 U/L (5-36); Magnesium 2.2 mg/dL (1.6-2.5); Uric Acid 10.1 mg/dL (2.5-8.0)
[2016-11-22] MEDS: HYDROCODONE/APAP 7.5/325MG TABLET PO PRN ×2 (07:13→21:11)
[2016-11-22] MEDS: INSULIN LISPRO 1 UNIT/0.01 ML UNIT SQ SCH ×4 (07:14→21:07)
[2016-11-22] MEDS: PANTOPRAZOLE 40 MG TABLET PO SCH (07:15)
[2016-11-22] MEDS ORDERED: ACETAMINOPHEN 325 MG TABLET PO PRN ×2 (08:27→23:37)
--- NOTE | 2016-11-22 08:27 | Internal Med Progress Note ---
Medical - PN: Subj Patient information: Note initiated : 11/22/16 at 8:25 am Service Date, if different from initiated Date: [] Patient: Shanda Rhodes a 71 y/o F admitted on 11/19/16 for Frustrated about Care. Chief Complaint: [] Interval history: Ms. Rhodes is a 71 year old female who was recently admitted to [facility] for PNA and chf exacerbation. Treated and discharged to [facility], She returns from [facility] today because she was not feeling well, short of breath, fatigued and increased weight. She also notes concern if she was getting her medications water pills and antibiotics appropriately. The patient has h/o diastolic heart failure ( as per last d/c echo done recently in [facility] with normal lvef) she also has CKD, DM, HTN, s/p pacemaker, CAD , CVA, DM neuropathy who has been in and out of the hospital. She notes that she had an episode of syncope and was at [facility] early this month, she was there for a few days, but not sure what was done. She noted some concern about an aneurysm. I will try to obtain these records. She was at [facility], when she presented here on the with fever, shortness of breath and fatigue. She was treated with antibiotics and diuretics and discharged on the back to [facility]. The patient notes that since discharge her condition has gradually worsened. she notes she was weighted and her weight was increasing and she was not happy about it. Her weight at discharge was 150lbs, and in the ER today was reported to be 172 lbs. The patient also reports drowsiness and weakness, some cough, headaches which are chronic. She denies fever or chills but reports does not feel those due to her neuropathy. patient denies any worsening cough. In the ER she was saturating at 88%, CXR shows persistent PNA and unchanged interstitial infiltrates, elevated bnp, rising creat to 2.8 (worse since last admit), elevated K 5.7 (was consuming high K diet ) she has a normal wbc In light of her worsening weight, elevated creat and K, as well as bnp. she as admitted to the hospital for further management. 11/20/16 Pt seen examined, sitting comfortably in her chair, noting that she has pain in her legs, and would like her pain medications. She denies any chest pains, and her shortness of breath is much better. The patient is neg 2 L since yesterday and doing much better, her procalcitonin is negative, indicating low probability of lower resp infection, I stopped her antibiotics, her X ray will be repeated in 3-4 weeks to check on resolution of PNA, clinically she does not seem to have PNA. Her renal function is still at 2.8, and we will be consulting nephrology for same, ua, prot creat and abdominal usg ordered. patient chart reviewed at the shelter, apparently she and her daughter went to a birthday constitution party on the 17 of november and were tipsy when they returned. The patient then was admitted on the for fluid overload and worsening heart failure. The patient discharge summary from [facility] and echo done in october reviewed, the patient was admitted for AMS noted to have Seizure disorder and was started on keppra for same. Her Echo shows lvef of 55% but grade 3 diastolic dysfunction. Pts lft noted to be elevated will get usg abdomen to cover liver, I am wondering if alcohol consumption resulted in her liver abnormalities. 11/21: Pt seen examined, drowsy today, but labs seem to be improving, She is now neg 10 lbs, approx 3 L, oxygen requirement is 1-3 L, the patient veronica any acute complaints, did work with therapy this AM and sleeping at noon. Patient bun continues go go up,k Creat improved to 2.6, Nephrology following. Continue IV diuresis for diastolic heart failure for now. aggresive pul toilet 11/22 Pt seen examined, awake this AM, not new concerns, slept ok last night, labs reviwed, hb 7.7, neg occult blood, likely due to anemia or renal disease. pt is neg 5800 since admission, Her creat is stable at 2.6, bun mildly worse than yesterday. Patient still is needing oxygen, will repeat Chest X ray today. Will continue with IV diuresis, review with nephrology on plan for IV iron. start on acapella Pertinent ROS: Denies headache, dizziness Denies chest pain, palpitations Denies cough or shortness of breath Denies abdominal pain, nausea or vomiting. - Constitutional Vitals: Vital Signs Temp Pulse Resp BP Pulse Ox 99.1 F 60 18 154/52 95 11/22/16 04:00 11/22/16 06:51 11/22/16 06:51 11/22/16 04:00 11/22/16 06:51 Period Temp Pulse Resp BP Sys/Courtney Pulse Ox Last 24 Hr 97.8 F-99.1 F 60-66 14-20 122-165/48-63 93-100 Intake and Output 11/21/16 11/22/16 11/22/16 21:59 05:59 13:59 Intake Total 600 / 600 Output Total 1375 / 1375 950 / 950 Balance -1375 / -1375 -350 / -350 Weight 161 lb 3.2 oz Intake & Output: Intake & Output 11/21/16 11/22/16 11/22/16 21:59 05:59 13:59 Intake Total 600 / 600 Output Total 1375 / 1375 950 / 950 Balance -1375 / -1375 -350 / -350 Weight 161 lb 3.2 oz Intake: Oral 600 / 600 Output: Urine Catheter Amount 1375 / 1375 950 / 950 Other: # Bowel Movements 1 1 # of times incontinent of 1 Bowels Exam: Constitutional; Afebrile, cooperative, alert, not in distress. Eyes- No icterus, , No periorbital swelling Ears- Ext ear normal, hearing normal to conversation. Neck- Midline trachea, supple Respiratory system: Air Entry equal on both sides, No crackles or wheezing, no rhonchi. CVS- Rate rhythm regular, S1,S2 heard, no gallop, no rub. Abdomen- Soft nontender abdomen, no organomegaly, no tenderness, no guarding or rigidity, [employer]- AOOx2, moving all extremities, no gross focal deficit noted. Medical - PN: Obj Da - Labs CBC & Chem 7: 11/22/16 04:30 11/22/16 04:30 Labs: Abnormal Lab Results 11/22/16 11/22/16 11/21/16 04:30 04:30 04:05 RBC 2.54 L Hgb 7.7 L Hct 22.8 L RDW 16.7 H Lymph % (Auto) Lymph # 0.8 L Absolute Retic Haptoglobin Potassium Chloride 94 L BUN 76 H 74 H Creatinine 2.6 H 2.6 H Glucose 277 H 238 H Uric Acid 10.1 H 9.8 H Calcium 8.5 L 8.4 L Phosphorus 5.7 H 6.3 H* Transferrin % Sat Ferritin GGT 79 H 84 H AST 62 H ALT 45 H Alkaline Phosphatase 146 H 154 H Lactate Dehydrogenase 253 H Total Protein 5.3 L 5.2 L Albumin 2.3 L 2.6 L Albumin/Globulin Ratio 0.8 L Vitamin B12 Urine Protein Urine Glucose (UA) Urine Occult Blood Urine RBC U [place] Prot/Creat Ratio 11/21/16 11/20/16 11/20/16 04:05 13:22 13:22 RBC 2.68 L Hgb 8.0 L Hct 24.1 L RDW 16.5 H Lymph % (Auto) 13.4 L Lymph # 0.7 L Absolute Retic Haptoglobin Potassium Chloride BUN Creatinine Glucose Uric Acid Calcium Phosphorus Transferrin % Sat Ferritin GGT AST ALT Alkaline Phosphatase Lactate Dehydrogenase Total Protein Albumin Albumin/Globulin Ratio Vitamin B12 Urine Protein 100 A Urine Glucose (UA) 50 A Urine Occult Blood 0.03 A Urine RBC 19 H U [place] Prot/Creat Ratio 5.85 H 11/20/16 11/20/16 11/20/16 08:32 08:32 03:55 RBC Hgb Hct RDW Lymph % (Auto) Lymph # Absolute Retic 2.4 H Haptoglobin 312 H Potassium 5.2 H Chloride BUN 73 H Creatinine 2.8 H Glucose Uric Acid 9.4 H Calcium 8.1 L Phosphorus 6.6 H* Transferrin % Sat 14 L Ferritin 555.0 H GGT 83 H AST 123 H ALT 59 H Alkaline Phosphatase 138 H Lactate Dehydrogenase 304 H Total Protein 5.3 L Albumin 2.7 L Albumin/Globulin Ratio Vitamin B12 1116 H Urine Protein Urine Glucose (UA) Urine Occult Blood Urine RBC U [place] Prot/Creat Ratio 11/20/16 03:50 RBC 2.54 L Hgb 7.8 L Hct 23.7 L RDW 16.4 H Lymph % (Auto) Lymph # 1.4 L Absolute Retic Haptoglobin Potassium Chloride BUN Creatinine Glucose Uric Acid Calcium Phosphorus Transferrin % Sat Ferritin GGT AST ALT Alkaline Phosphatase Lactate Dehydrogenase Total Protein Albumin Albumin/Globulin Ratio Vitamin B12 Urine Protein Urine Glucose (UA) Urine Occult Blood Urine RBC U [place] Prot/Creat Ratio Meds: Medications Acetaminophen/Hydrocodone Bitart ([place] 7.5/325mg) 1 tab PO Q4HP PRN PRN Reason: Pain Last Admin: 11/22/16 07:13 Dose: 1 tab Albuterol/Ipratropium (Duoneb) 3 ml NEB Q6HRT [facility] Last Admin: 11/22/16 06:48 Dose: 3 ml Atorvastatin Calcium (Lipitor) 80 mg PO DAILY [facility] Last Admin: 11/21/16 09:10 Dose: 80 mg Calcium Acetate (Phoslo) 667 mg PO TIDCC [facility] Last Admin: 11/21/16 17:55 Dose: 667 mg Carvedilol (Coreg) 12.5 mg PO BIDCC [facility] Last Admin: 11/21/16 17:55 Dose: 12.5 mg Clopidogrel Bisulfate (Plavix) 75 mg PO DAILY [facility] Last Admin: 11/21/16 09:11 Dose: 75 mg Dextrose (Dextrose 50%) 0 ml IV UD PRN PRN Reason: Hypoglycemia Diagnostic Test (Pha) (Accu-Chek) 1 each FS ACHS [facility] Last Admin: 11/22/16 07:14 Dose: 1 each Furosemide (Lasix) 40 mg IV Q12 [facility] Last Admin: 11/21/16 21:16 Dose: 40 mg Gabapentin (Neurontin) 300 mg PO BID [facility] Last Admin: 11/21/16 21:15 Dose: 300 mg Heparin Sodium (Porcine) (Heparin) 5,000 unit SQ Q12 [facility] Last Admin: 11/21/16 21:15 Dose: 5,000 unit Insulin Glargine (Lantus) 20 unit SQ DAILY [facility] Insulin Human Lispro (Humalog) 0 unit SQ ACHS [facility] PRN Reason: Protocol Last Admin: 11/22/16 07:14 Dose: 8 unit Iron Carb/Multivit/[place]/Folic Acid (Multivitamin W/Minerals) 1 tab PO DAILY [facility] Last Admin: 11/21/16 09:11 Dose: 1 tab Lactobacillus Rhamnosus (Culturelle) 1 cap PO BID [facility] Last Admin: 11/21/16 21:15 Dose: 1 cap Levetiracetam (Keppra) 500 mg PO BID [facility] Last Admin: 11/21/16 21:15 Dose: 500 mg Levothyroxine Sodium (Synthroid) 112 mcg PO QAMAC [facility] Last Admin: 11/21/16 08:33 Dose: 112 mcg Ondansetron HCl (Zofran) 4 mg IV Q4HP PRN PRN Reason: Nausea And Vomiting Pantoprazole Sodium (Protonix) 40 mg PO QAMAC [facility] Last Admin: 11/22/16 07:15 Dose: 40 mg Sotalol HCl (Betapace) 80 mg PO BID [facility] Last Admin: 11/21/16 21:15 Dose: 80 mg Medical - PN: A/P - Time Spent With Patient Total time spent is greater than 50% in coordination of care (as documented) at patient's floor/unit and/or counseling patient: - Narrative A/P Narrative: A/P Acute Diastolic Heart failure: Failed outpatient diuretic regime, IV lasix for now, Telemetry monitoring, Baker in place, fluid restriction to 1500ml for now. she is improving clinically. Neg 5800Ml since admission. Drowsy: Much better this AM, monitor Hypoxia, waxing and waning, atelectasis, vs chf, repeat CXR today. Acute on Chr Kidney disease: Gradually worsening renal function: likely due to lasix, however diuretics are necessary for now. nephrology consult appreciated. Hyperkalemia: Improved monitor. Abnl LFT : Likely from etoh,lft improving, await hepatitis panel,usg liver neg. PNA: no fever, normal procalcitonin, normal wbc, s/p ABX, no antibiotics for now. CAD/ HTN/ CVA: continue home medications once confirmed Seizure disorder On keppra, seizure precautions DM neuropathy: On neurontin, home dose of opiates. DM: On insulin,dm uncontrolled, increase dose of lantus to 15, change sliding scale to medium. DVT hep sq Diet cardiac/ renal/ carb controlled with fluid restriction. Code full Medical - PN: Qual - VTE Deep Vein Thrombosis/Pulmonary Embolism Present on Admission: No
[2016-11-22] MEDS ORDERED: INSULIN GLARGINE, HUMAN 1 UNIT/0.01 ML SQ SCH ×2 (09:00)
[2016-11-22] MEDS: ATORVASTATIN 20 MG TABLET PO SCH (09:01)
[2016-11-22] MEDS: CARVEDILOL 3.125 MG TABLET PO SCH ×2 (09:02→19:14)
[2016-11-22] MEDS: CALCIUM ACETATE 667 MG CAPSULE PO SCH ×3 (09:03→19:14)
[2016-11-22] MEDS: LEVOTHYROXINE SODIUM 112 MCG TABLET PO SCH (09:03)
[2016-11-22] MEDS: CLOPIDOGREL 75 MG TABLET PO SCH (09:04)
[2016-11-22] MEDS: levETIRAcetam 500 MG TABLET PO SCH ×2 (09:05→21:17)
[2016-11-22] MEDS: MULTIVIT,THER IRON,CA,FA & MIN 1 TABLET PO SCH (09:05)
[2016-11-22] MEDS: FUROSEMIDE 40 MG/4 ML VIAL IV SCH ×2 (09:07→21:18)
[2016-11-22] MEDS: HEPARIN 5,000 UNIT/ML VIAL SQ SCH ×2 (09:07→21:18)
[2016-11-22] MEDS: SOTALOL 80 MG TABLET PO SCH ×2 (09:15→21:12)
[2016-11-22] MEDS: LACTOBACILLUS 1 CAPSULE PO SCH ×2 (09:15→21:12)
[2016-11-22] MEDS: GABAPENTIN 300 MG CAPSULE PO SCH ×2 (09:19→21:12)
--- NOTE | 2016-11-22 10:27 | XRay Report ---
CLINICAL INFORMATION: Hypoxia COMPARISON: 11/19/2016 FINDINGS: Mild cardiomegaly is unchanged. Pacemaker leads in stable satisfactory position. Mediastinum and pulmonary vessels are unremarkable. Bibasilar infiltrates have worsened considerably and are now large with consolidated with small to moderate bilateral pleural effusions IMPRESSION: Large consolidated right basilar infiltrates and small to moderate effusion - worsening considerably over the past three days Interpreted and Authenticated by: Pradeep Martines 11/22/16
[2016-11-22] MEDS ORDERED: VANCOMYCIN PER PHARMACY IV SCH (11:13)
[2016-11-22] MEDS ORDERED: CEFEPIME 2 GM in DEXTROSE 5% IN WATER 50 ML IV SCH (12:00)
[2016-11-22 12:20] LABS: C-Reactive Protein 2.8 mg/dl (0.0-0.8)
[2016-11-22] MEDS ORDERED: VANCOMYCIN 1,000 MG in 0.9 % SODIUM CHLORIDE 250 ML IV ONE (12:30)
--- NOTE | 2016-11-22 17:18 | Cat Scan Report ---
CLINICAL INFORMATION: Worsening bilateral pleural effusions COMPARISON: 08/08/[address] TECHNIQUE: 2.5 mm axial slices were obtained from the lung apices through the bases without intravenous contrast. Sagittal, coronal and axial reformatted images were processed and reviewed at bone, lung and soft tissue windows. 7 mm axial MIP images were also reconstructed. FINDINGS: There are moderate sized bilateral pleural effusions with compressive atelectasis in the overlying posterior lower lobes. Mild underlying bronchitis changes with scattered scarring both lungs appreciated. There is a small partially solid/groundglass infiltrate in the perimediastinal left apex which was not seen on the previous study. The chronicity and etiology is unknown. Mediastinal windows show the noncontrasted thoracic aorta is normal in contour and caliber. There is mild enlargement of the central pulmonary arteries suggestive of pulmonary hypertension. It is unchanged. There are moderately enlarged mediastinal lymph nodes in the paratracheal, AP window and pericarinal regions. These were present on the previous study but now show slight increase. A precarinal lymph node has increased from 10 to 15 mm since the prior exam. The heart is mildly enlarged and there is heavy calcific plaque in the coronary arteries. Pacemaker leads in stable satisfactory position. Bones and soft tissues the chest wall are normal. IMPRESSION: 1. Moderate bilateral pleural effusions with compressive subsegmental atelectasis in both posterior lower lobes are new from the prior [address] 2. Mild underlying chronic bronchitis 3. Small partially groundglass infiltrate in the perimediastinal left upper lobe. The etiology and chronicity is unknown. It may represent fibrosis if chronic or a pneumonia acute. Consider short-term radiographic follow-up to evaluate evolution. 4. Mediastinal adenopathy - slightly increased from the remote 2013 study. They're almost certainly benign reactive lymph nodes Interpreted and Authenticated by: Pradeep Martines 11/22/16
[2016-11-22] MEDS ORDERED: DEXTROSE 50% 50 ML VIAL IV PRN (23:37)
[2016-11-22] MEDS ORDERED: ONDANSETRON 4 MG/2 ML VIAL IV PRN (23:37)
[2016-11-23] MEDS: IPRATROPIUM/ALBUTEROL 3 ML AMPUL.NEB NEB SCH ×4 (00:56→19:43)
[2016-11-23 05:38] LABS: Basophils # (Auto) 0 K/mcL (0.0-0.3); Basophils % (Auto) 1.1 % (0.0-2.0); Eosinophils # (Auto) 0.3 K/mcL (0.0-0.7); Eosinophils % (Auto) 6.2 % (0.0-7.0); Granulocytes % (Auto) 65.3 % (38.0-78.0); Lymphocytes # (Auto) 0.8 K/mcL (1.5-4.8); Lymphocytes % (Auto) 20.6 % (15.5-49.0); Mean Cell Volume 92.6 fL (80.0-100.0); Mean Corpuscular HGB Conc 32.6 g/dL (31.0-36.0); Mean Corpuscular Hemoglobin 30.2 pg (26.0-34.0); Monocytes # (Auto) 0.3 K/mcL (0.1-0.9); Monocytes % (Auto) 6.8 % (1.0-12.0); Platelet Count 229 K/mcL (140-440); RBC 2.57 M/mcL (4.00-5.20); Red Cell Distribution Width 16.3 % (11.5-14.5)
[2016-11-23] MEDS ORDERED: PIPERACILLIN SODIUM/TAZOBACTAM 3.375 GM in DEXTROSE 5% IN WATER 50 ML IV SCH (06:00)
[2016-11-23 06:06] LABS: ALT/SGPT 28 U/l (0-40); Albumin 2.6 gm/dL (3.2-5.2); Albumin/Globulin Ratio 0.9 (1.0-2.3); Alkaline Phosphatase 134 U/L (39-117); Bilirubin,Direct < 0.2 mg/dL (0.0-0.3); Blood Urea Nitrogen 76 mg/dl (8-23); Gamma Glutamyl Transpeptidase 75 U/L (5-36); Magnesium 2.1 mg/dL (1.6-2.5); Uric Acid 10.5 mg/dL (2.5-8.0)
[2016-11-23] MEDS ORDERED: IPRATROPIUM/ALBUTEROL 3 ML AMPUL.NEB NEB ONE (06:58)
[2016-11-23] MEDS: INSULIN LISPRO 1 UNIT/0.01 ML UNIT SQ SCH ×4 (07:41→21:41)
[2016-11-23] MEDS: LEVOTHYROXINE SODIUM 112 MCG TABLET PO SCH (07:50)
[2016-11-23] MEDS: PANTOPRAZOLE 40 MG TABLET PO SCH (07:50)
[2016-11-23] MEDS: CALCIUM ACETATE 667 MG CAPSULE PO SCH ×3 (07:50→17:44)
[2016-11-23] MEDS: CARVEDILOL 3.125 MG TABLET PO SCH ×2 (07:51→17:44)
[2016-11-23] MEDS ORDERED: FUROSEMIDE 40 MG/4 ML VIAL IV SCH (09:00)
[2016-11-23] MEDS ORDERED: IRON SUCROSE COMPLEX 100 MG/5 ML VIAL IV ONE (09:06)
[2016-11-23] MEDS: MULTIVIT,THER IRON,CA,FA & MIN 1 TABLET PO SCH (09:07)
[2016-11-23] MEDS: CLOPIDOGREL 75 MG TABLET PO SCH (09:07)
[2016-11-23] MEDS: HEPARIN 5,000 UNIT/ML VIAL SQ SCH ×2 (09:07→21:35)
[2016-11-23] MEDS: levETIRAcetam 500 MG TABLET PO SCH ×2 (09:08→21:35)
[2016-11-23] MEDS: GABAPENTIN 300 MG CAPSULE PO SCH ×2 (09:08→21:35)
[2016-11-23] MEDS: LACTOBACILLUS 1 CAPSULE PO SCH ×2 (09:09→21:36)
[2016-11-23] MEDS: SOTALOL 80 MG TABLET PO SCH ×2 (09:10→21:36)
[2016-11-23] MEDS: INSULIN GLARGINE, HUMAN 1 UNIT/0.01 ML SQ SCH (09:14)
--- NOTE | 2016-11-23 10:58 | Internal Med Progress Note ---
Medical - PN: Subj Patient information: Note initiated : 11/23/16 at 10:52 am Service Date, if different from initiated Date: [] Patient: Shanda Rhodes a 71 y/o F admitted on 11/19/16 for Frustrated about Care. Chief Complaint: [] Interval history: Ms. Rhodes is a 71 year old female who was recently admitted to [facility] for PNA and chf exacerbation. Treated and discharged to [facility], She returns from [facility] today because she was not feeling well, short of breath, fatigued and increased weight. She also notes concern if she was getting her medications water pills and antibiotics appropriately. The patient has h/o diastolic heart failure ( as per last d/c echo done recently in [facility] with normal lvef) she also has CKD, DM, HTN, s/p pacemaker, CAD , CVA, DM neuropathy who has been in and out of the hospital. She notes that she had an episode of syncope and was at [facility] early this month, she was there for a few days, but not sure what was done. She noted some concern about an aneurysm. I will try to obtain these records. She was at [facility], when she presented here on the with fever, shortness of breath and fatigue. She was treated with antibiotics and diuretics and discharged on the back to [facility]. The patient notes that since discharge her condition has gradually worsened. she notes she was weighted and her weight was increasing and she was not happy about it. Her weight at discharge was 150lbs, and in the ER today was reported to be 172 lbs. The patient also reports drowsiness and weakness, some cough, headaches which are chronic. She denies fever or chills but reports does not feel those due to her neuropathy. patient denies any worsening cough. In the ER she was saturating at 88%, CXR shows persistent PNA and unchanged interstitial infiltrates, elevated bnp, rising creat to 2.8 (worse since last admit), elevated K 5.7 (was consuming high K diet ) she has a normal wbc In light of her worsening weight, elevated creat and K, as well as bnp. she as admitted to the hospital for further management. 11/20/16 Pt seen examined, sitting comfortably in her chair, noting that she has pain in her legs, and would like her pain medications. She denies any chest pains, and her shortness of breath is much better. The patient is neg 2 L since yesterday and doing much better, her procalcitonin is negative, indicating low probability of lower resp infection, I stopped her antibiotics, her X ray will be repeated in 3-4 weeks to check on resolution of PNA, clinically she does not seem to have PNA. Her renal function is still at 2.8, and we will be consulting nephrology for same, ua, prot creat and abdominal usg ordered. [facility], apparently she and her daughter went to a birthday libertarian on the 17 of november and were tipsy when they returned. The patient then was admitted on the for fluid overload and worsening heart failure. The patient discharge summary from [facility] and echo done in october reviewed, the patient was admitted for AMS noted to have Seizure disorder and was started on keppra for same. Her Echo shows lvef of 55% but grade 3 diastolic dysfunction. Pts lft noted to be elevated will get usg abdomen to cover liver, I am wondering if alcohol consumption resulted in her liver abnormalities. 11/21: Pt seen examined, drowsy today, but labs seem to be improving, She is now neg 10 lbs, approx 3 L, oxygen requirement is 1-3 L, the patient veronica any acute complaints, did work with therapy this AM and sleeping at noon. Patient bun continues go go up,k Creat improved to 2.6, Nephrology following. Continue IV diuresis for diastolic heart failure for now. aggresive pul toilet 11/22 Pt seen examined, awake this AM, not new concerns, slept ok last night, labs reviwed, hb 7.7, neg occult blood, likely due to anemia or renal disease. pt is neg 5800 since admission, Her creat is stable at 2.6, bun mildly worse than yesterday. Patient still is needing oxygen, will repeat Chest X ray today. Will continue with IV diuresis, review with nephrology on plan for IV iron. start on acapella 11/23 Pt seen examined, no acute overnight events, doing much better today, yesterday her X ray showed worsening bibasilar infiltrates, however she had low procalcitonin, no fever. CT chest shows bilateral effusion with atelectasis, ? infiltrate in the left upper lobe, but given low probability of infection, antibiotics were stopped. Cultures are pending, will monitor. She will be switched from IV lasxi to oral lasix today, monitor urine output on orals, and likely D/C in AM to SNF> Pertinent ROS: Denies headache, dizziness Denies chest pain, palpitations Denies cough or shortness of breath Denies abdominal pain, nausea or vomiting. - Constitutional Vitals: Vital Signs Temp Pulse Resp BP Pulse Ox 97.9 F 65 12 189/63 95 11/23/16 07:26 11/23/16 07:50 11/23/16 07:50 11/23/16 07:26 11/23/16 07:50 Period Temp Pulse Resp BP Sys/Courtney Pulse Ox Last 24 Hr 96.6 F-98.9 F 59-86 12-22 146-189/54-76 90-100 Intake and Output 11/22/16 11/23/16 11/23/16 21:59 05:59 13:59 Intake Total 400 / 400 Output Total 500 / 500 1400 / 1400 Balance -100 / -100 -1400 / -1400 Weight 164 lb 11.2 oz Intake & Output: Intake & Output 11/22/16 11/23/16 11/23/16 21:59 05:59 13:59 Intake Total 400 / 400 Output Total 500 / 500 1400 / 1400 Balance -100 / -100 -1400 / -1400 Weight 164 lb 11.2 oz Intake: Oral 400 / 400 Output: Urine Catheter Amount 500 / 500 1400 / 1400 Other: Meal Lunch Percent of Meal Consumed 75% Feeding Ability Assist with Tray Set Up # Bowel Movements 1 1 Exam: Constitutional; Afebrile, cooperative, alert, not in distress. Eyes- No icterus, , No periorbital swelling Ears- Ext ear normal, hearing normal to conversation. Neck- Midline trachea, supple Respiratory system: Air Entry equal on both sides, No crackles or wheezing, no rhonchi. decreased entry at the bases. CVS- Rate rhythm regular, S1,S2 heard, no gallop, no rub. 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 Medical - PN: Obj Da - Labs CBC & Chem 7: 11/23/16 04:20 11/23/16 04:20 Labs: Abnormal Lab Results 11/23/16 11/23/16 11/22/16 04:20 04:20 11:20 WBC 4.0 L RBC 2.57 L Hgb 7.8 L Hct 23.8 L RDW 16.3 H Lymph % (Auto) Lymph # 0.8 L ESR Chloride BUN 76 H Creatinine 2.7 H Glucose 238 H Uric Acid 10.5 H Calcium 8.5 L Phosphorus 5.3 H GGT 75 H AST ALT Alkaline Phosphatase 134 H Lactate Dehydrogenase C-Reactive Protein 2.8 H Total Protein 5.4 L Albumin 2.6 L Albumin/Globulin Ratio 0.9 L Urine Protein Urine Glucose (UA) Urine Occult Blood Urine RBC U [place] Prot/Creat Ratio 11/22/16 11/22/16 11/22/16 11:20 04:30 04:30 WBC RBC 2.54 L Hgb 7.7 L Hct 22.8 L RDW 16.7 H Lymph % (Auto) Lymph # 0.8 L ESR 93 H Chloride 94 L BUN 76 H Creatinine 2.6 H Glucose 277 H Uric Acid 10.1 H Calcium 8.5 L Phosphorus 5.7 H GGT 79 H AST ALT Alkaline Phosphatase 146 H Lactate Dehydrogenase C-Reactive Protein Total Protein 5.3 L Albumin 2.3 L Albumin/Globulin Ratio 0.8 L Urine Protein Urine Glucose (UA) Urine Occult Blood Urine RBC U [place] Prot/Creat Ratio 11/21/16 11/21/16 11/20/16 04:05 04:05 13:22 WBC RBC 2.68 L Hgb 8.0 L Hct 24.1 L RDW 16.5 H Lymph % (Auto) 13.4 L Lymph # 0.7 L ESR Chloride BUN 74 H Creatinine 2.6 H Glucose 238 H Uric Acid 9.8 H Calcium 8.4 L Phosphorus 6.3 H* GGT 84 H AST 62 H ALT 45 H Alkaline Phosphatase 154 H Lactate Dehydrogenase 253 H C-Reactive Protein Total Protein 5.2 L Albumin 2.6 L Albumin/Globulin Ratio Urine Protein 100 A Urine Glucose (UA) 50 A Urine Occult Blood 0.03 A Urine RBC 19 H U [place] Prot/Creat Ratio 11/20/16 13:22 WBC RBC Hgb Hct RDW Lymph % (Auto) Lymph # ESR Chloride BUN Creatinine Glucose Uric Acid Calcium Phosphorus GGT AST ALT Alkaline Phosphatase Lactate Dehydrogenase C-Reactive Protein Total Protein Albumin Albumin/Globulin Ratio Urine Protein Urine Glucose (UA) Urine Occult Blood Urine RBC U [place] Prot/Creat Ratio 5.85 H Meds: Medications Acetaminophen (Tylenol) 650 mg PO Q4-6HP PRN PRN Reason: PAIN/FEVER > 101 Acetaminophen/Hydrocodone Bitart ([place] 7.5/325mg) 1 tab PO Q4HP PRN PRN Reason: Pain Albuterol/Ipratropium (Duoneb) 3 ml NEB Q6HRT [facility] Last Admin: 11/23/16 00:56 Dose: Not Given Atorvastatin Calcium (Lipitor) 80 mg PO HS [facility] Bumetanide (Bumex) 1 mg PO BIDD [facility] Calcium Acetate (Phoslo) 667 mg PO TIDCC [facility] Last Admin: 11/23/16 07:50 Dose: 667 mg Carvedilol (Coreg) 12.5 mg PO BIDCC [facility] Last Admin: 11/23/16 07:51 Dose: 12.5 mg Clopidogrel Bisulfate (Plavix) 75 mg PO DAILY [facility] Last Admin: 11/23/16 09:07 Dose: 75 mg Dextrose (Dextrose 50%) 0 ml IV UD PRN PRN Reason: Hypoglycemia Diagnostic Test (Pha) (Accu-Chek) 1 each FS ACHS [facility] Last Admin: 11/23/16 07:40 Dose: 1 each Gabapentin (Neurontin) 300 mg PO BID [facility] Last Admin: 11/23/16 09:08 Dose: 300 mg Heparin Sodium (Porcine) (Heparin) 5,000 unit SQ Q12 [facility] Last Admin: 11/23/16 09:07 Dose: 5,000 unit Insulin Glargine (Lantus) 20 unit SQ DAILY [facility] Last Admin: 11/23/16 09:14 Dose: 20 unit Insulin Human Lispro (Humalog) 0 unit SQ ACHS [facility] PRN Reason: Protocol Last Admin: 11/23/16 07:41 Dose: 6 unit Iron Carb/Multivit/Concrete Buildings Assembler/Folic Acid (Multivitamin W/Minerals) 1 tab PO DAILY [facility] Last Admin: 11/23/16 09:07 Dose: 1 tab Lactobacillus Rhamnosus (Culturelle) 1 cap PO BID [facility] Last Admin: 11/23/16 09:09 Dose: 1 cap Levetiracetam (Keppra) 500 mg PO BID [facility] Last Admin: 11/23/16 09:08 Dose: 500 mg [facility] Last Admin: 11/23/16 07:50 Dose: 112 mcg Ondansetron HCl (Zofran) 4 mg IV Q4HP PRN PRN Reason: Nausea And Vomiting Pantoprazole Sodium (Protonix) 40 mg PO QAMAC [facility] Last Admin: 11/23/16 07:50 Dose: 40 mg Sotalol HCl (Betapace) 80 mg PO BID [facility] Last Admin: 11/23/16 09:10 Dose: 80 mg Medical - PN: A/P - Time Spent With Patient Total time spent is greater than 50% in coordination of care (as documented) at patient's floor/unit and/or counseling patient: - Narrative A/P Narrative: A/P Acute Diastolic Heart failure: doing better, switch from IV to oral, on med surg floor now. Drowsy: resolved. Hypoxia,: Likely from compressive atelectasis, Incentive spiormeter and acapella. Acute on Chr Kidney disease: Gradually worsening renal function: likely due to lasix, however diuretics are necessary for now. nephrology consult appreciated. Abnl LFT : LFt much better now, hepatitis panel pending, usg liver neg. likely from etoh consumption. PNA: no fever, normal procalcitonin, normal wbc, s/p ABX, no antibiotics for now. CT also shows ? left lung, clinically no pna, X ray is likely overread. CAD/ HTN/ CVA: continue home medications once confirmed Seizure disorder On keppra, seizure precautions DM neuropathy: On neurontin, home dose of opiates. DM: On insulin,dm uncontrolled, increase dose of lantus to 15, change sliding scale to medium. Glucose was high, but trending down today, will monitor, will incresae dose of lantus if needed. DVT hep sq Diet cardiac/ renal/ carb controlled with fluid restriction. Code full Medical - PN: Qual - VTE Deep Vein Thrombosis/Pulmonary Embolism Present on Admission: No
[2016-11-23 11:09] LABS: Hepatitis A Antibody Total REACTIVE (NON-REACTIVE); Hepatitis B SAB Quant <5 mIU/mL (> OR = 10); Hepatitis B Surface Antigen NON-REACTIVE (NON-REACTIVE); Hepatitis C Virus Antibody NON-REACTIVE (NON-REACTIVE)
[2016-11-23] MEDS: HYDROCODONE/APAP 7.5/325MG TABLET PO PRN ×3 (11:29→22:27)
[2016-11-23] MEDS: BUMETANIDE 1 MG TABLET PO SCH (15:59)
--- NOTE | 2016-11-23 16:13 | Nephrology Progress Note ---
Subjective Patient information: Note initiated : 11/23/16 at 4:11 pm Service Date, if different from initiated Date: [] Patient: Shanda Rhodes 71 y/o F admitted on 11/19/16 for Frustrated about Care. Chief Complaint: [] Principal diagnosis: chf Interval history: patient transferred to regular floor she is feelign much better, doing PT Her LE edema is much improved CT scan chest done yesterday did show bilateral pleural effusion with compression atelectasis still no CP, SOB, dizziness good appetite Pertinent ROS: as mentioned above Objective - Vital Signs Vital signs: Vital Signs Temp Pulse Pulse Resp BP BP BP 11/23/16 15:13 98.9 F 18 172/89 11/23/16 13:18 69 18 11/23/16 11:38 98.5 F 66 20 178/77 11/23/16 08:00 20 11/23/16 07:50 65 12 11/23/16 07:47 70 12 11/23/16 07:26 97.9 F 20 189/63 11/23/16 04:00 98.9 F 20 153/54 11/22/16 23:43 76 11/22/16 23:28 83 11/22/16 23:23 98.1 F 22 157/65 11/22/16 23:22 98.1 F 11/22/16 21:31 59 L 11/22/16 20:01 62 157/65 11/22/16 20:00 97.0 F L 65 72 18 157/65 11/22/16 19:30 66 18 Pulse Ox 11/23/16 15:13 98 11/23/16 13:18 94 11/23/16 11:38 93 11/23/16 08:00 93 11/23/16 07:50 95 11/23/16 07:47 11/23/16 07:26 93 11/23/16 04:00 90 11/22/16 23:43 100 11/22/16 23:28 11/22/16 23:23 97 11/22/16 23:22 11/22/16 21:31 95 11/22/16 20:01 99 11/22/16 20:00 96 11/22/16 19:30 97 Intake and Output 11/23/16 11/23/16 11/23/16 05:59 13:59 21:59 Intake Total 120 / 120 240 / 240 Output Total 1400 / 1400 1400 / 1400 Balance -1400 / -1400 120 / 120 -1160 / -1160 Intake: Oral 120 / 120 240 / 240 Output: Urine Catheter Amount 1400 / 1400 1400 / 1400 Other: Meal Breakfast Percent of Meal Consumed 100% Feeding Ability Independent # Bowel Movements 1 Intake & Output: Intake & Output 11/23/16 11/23/16 11/23/16 05:59 13:59 21:59 Intake Total 120 / 120 240 / 240 Output Total 1400 / 1400 1400 / 1400 Balance -1400 / -1400 120 / 120 -1160 / -1160 Intake: Oral 120 / 120 240 / 240 Output: Urine Catheter Amount 1400 / 1400 1400 / 1400 Other: Meal Breakfast Percent of Meal Consumed 100% Feeding Ability Independent # Bowel Movements 1 - General Appearance General appearance: appears started age EENT: mucous membranes moist Neck: no JVD Respiratory: rales Cardiology: no rub, edema (much improved), normal S1, normal S2 Gastrointestinal: no tenderness, no guarding Integumentary: warm and dry Neurologic: alert and oriented x3 Musculoskeletal: no erythema, no cyanosis Psychiatric: mood/affect appropriate - Lab 11/23/16 04:20 11/23/16 04:20 Most recent lab results Calcium 8.5 mg/dl (8.6-10.4) L 11/23/16 04:20 Phosphorus 5.3 mg/dL (2.7-4.5) H 11/23/16 04:20 Magnesium 2.1 mg/dL (1.6-2.5) 11/23/16 04:20 Assessment and Plan (1) CKD (chronic kidney disease), stage IV renal function stable between s.creatinine 2.6-2.8, has declined since recent hospitalisation nephrotic range proteinuria chronic diabetic kidney disease with recent worsening in the setting of CHF fluid status much improved anemia Hb stable at around 8.0, low iron stores and CKD contributing renal osteodystrophy: phos down to 5.3 on phoslo labs discussed with the pt change to oral bumex 1mg bid today, would discharge her on this dose if systolic BP remains elevated consider add amlodipine 5mg in am ct coreg cannot start ACEI or ARB given recent decline in egfr and also recurrent hyperkalemia pt given venofer today, will repeat the dose tomorrow once she is iron replete will initiate ENEIDA if needed will follow in 1-2 weeks on discharge Thank you for giving me an opportunity to participate in Ms Rhodes's medical care , appreciate it Status: Acute (2) CHF (congestive heart failure) Status: Acute
[2016-11-23] MEDS: CARVEDILOL 12.5 MG TABLET PO SCH (17:44)
[2016-11-23] MEDS ORDERED: ATORVASTATIN 20 MG TABLET PO SCH (21:00)
[2016-11-24] MEDS: IPRATROPIUM/ALBUTEROL 3 ML AMPUL.NEB NEB SCH ×3 (01:01→13:42)
[2016-11-24 01:34] LABS: Vancomycin,Random 13.9 ug/ml
[2016-11-24 06:57] LABS: Basophils # (Auto) 0 K/mcL (0.0-0.3); Basophils % (Auto) 1.1 % (0.0-2.0); Eosinophils # (Auto) 0.3 K/mcL (0.0-0.7); Eosinophils % (Auto) 7.2 % (0.0-7.0); Granulocytes % (Auto) 56.3 % (38.0-78.0); Lymphocytes % (Auto) 25.9 % (15.5-49.0); Mean Cell Volume 93.5 fL (80.0-100.0); Mean Corpuscular HGB Conc 32.8 g/dL (31.0-36.0); Mean Corpuscular Hemoglobin 30.7 pg (26.0-34.0); Monocytes # (Auto) 0.4 K/mcL (0.1-0.9); Monocytes % (Auto) 9.5 % (1.0-12.0); Platelet Count 288 K/mcL (140-440); RBC 2.63 M/mcL (4.00-5.20); Red Cell Distribution Width 15.6 % (11.5-14.5)
[2016-11-24 07:06] LABS: ALT/SGPT 23 U/l (0-40); Albumin 2.8 gm/dL (3.2-5.2); Alkaline Phosphatase 128 U/L (39-117); Bilirubin,Direct < 0.2 mg/dL (0.0-0.3); Blood Urea Nitrogen 71 mg/dl (8-23); Gamma Glutamyl Transpeptidase 74 U/L (5-36); Magnesium 2.2 mg/dL (1.6-2.5); Uric Acid 9.8 mg/dL (2.5-8.0)
[2016-11-24] MEDS: INSULIN LISPRO 1 UNIT/0.01 ML UNIT SQ SCH ×2 (07:48→11:59)
[2016-11-24] MEDS ORDERED: IRON SUCROSE COMPLEX 100 MG/5 ML VIAL IV ONE (07:50)
[2016-11-24] MEDS: PANTOPRAZOLE 40 MG TABLET PO SCH (08:20)
[2016-11-24] MEDS: BUMETANIDE 1 MG TABLET PO SCH (08:21)
[2016-11-24] MEDS: CALCIUM ACETATE 667 MG CAPSULE PO SCH ×2 (08:21→12:02)
[2016-11-24] MEDS: LEVOTHYROXINE SODIUM 112 MCG TABLET PO SCH (08:22)
[2016-11-24] MEDS: CARVEDILOL 12.5 MG TABLET PO SCH (08:33)
--- NOTE | 2016-11-24 09:59 | Cat Scan Report ---
CLINICAL INFORMATION: Headache and vomiting COMPARISON: 01/02/[address] TECHNIQUE: 2.5 mm helical slices were obtained in the skull base to vertex. Following reconstruction, axial reformatted images were reviewed at bone and parenchymal windows. FINDINGS: The ventricles, sulci, fissures, and cisterns are symmetrically enlarged bowel mild age-related atrophy. No extra-axial fluid collections or masses appreciated. Is minimal chronic ischemic changes in the cerebral white matter - expected for age which are stable. No acute cerebral hemorrhage, mass effect, edema or other acute cerebral abnormality. The bone windows show no osseous abnormality. IMPRESSION: Mild atrophy and chronic ischemic changes in the cerebral white matter typical for age and unchanged from the comparison study less than one year ago. Moderate right mastoiditis, ethmoid sinusitis and mild sphenoid sinusitis - similar to previous study. Interpreted and Authenticated by: Pradeep Martines 11/24/16
[2016-11-24] MEDS: LACTOBACILLUS 1 CAPSULE PO SCH (10:04)
[2016-11-24] MEDS: SOTALOL 80 MG TABLET PO SCH (10:05)
[2016-11-24] MEDS: GABAPENTIN 300 MG CAPSULE PO SCH (10:06)
[2016-11-24] MEDS: CLOPIDOGREL 75 MG TABLET PO SCH (10:07)
[2016-11-24] MEDS: MULTIVIT,THER IRON,CA,FA & MIN 1 TABLET PO SCH (10:08)
[2016-11-24] MEDS: levETIRAcetam 500 MG TABLET PO SCH (10:09)
[2016-11-24] MEDS: INSULIN GLARGINE, HUMAN 1 UNIT/0.01 ML SQ SCH (10:17)
[2016-11-24] MEDS: HEPARIN 5,000 UNIT/ML VIAL SQ SCH (10:17)
[2016-11-24] MEDS: CARVEDILOL 3.125 MG TABLET PO SCH (10:19)
--- NOTE | 2016-11-24 10:42 | Nephrology Progress Note ---
Subjective Patient information: Note initiated : 11/24/16 at 10:37 am Service Date, if different from initiated Date: [] Patient: Shanda Rhodes 71 y/o F admitted on 11/19/16 for Frustrated about Care. Chief Complaint: [] Principal diagnosis: chf Interval history: Patient c/o headache states had a "dropsy like episode" last night edema has improved, no worsening SOB, no CP No urinary symptoms ct brain with no new changes Pertinent ROS: as above Objective - Vital Signs Vital signs: Vital Signs Temp Pulse Pulse Resp BP Pulse Ox 11/24/16 08:00 97.7 F 84 16 174/69 96 11/24/16 07:35 96 11/24/16 07:23 62 18 94 11/24/16 03:37 97.9 F 72 14 164/68 93 11/23/16 23:39 97.4 F L 61 16 163/66 93 11/23/16 20:00 98.0 F 65 14 169/69 92 11/23/16 19:45 66 16 11/23/16 19:44 93 11/23/16 15:13 98.9 F 18 172/89 98 11/23/16 13:18 69 18 94 11/23/16 11:38 98.5 F 66 20 178/77 93 Intake and Output 11/23/16 11/24/16 11/24/16 21:59 05:59 13:59 Intake Total 240 / 240 420 / 420 200 / 200 Output Total 1600 / 1600 1100 / 1100 Balance -1360 / -1360 -680 / -680 200 / 200 Intake: Oral 240 / 240 420 / 420 200 / 200 Output: Urine Catheter Amount 1600 / 1600 1100 / 1100 Other: Meal Breakfast Percent of Meal Consumed 100% Feeding Ability Independent # [place] 0 Weight 173 lb 8 oz Intake & Output: Intake & Output 11/23/16 11/24/16 11/24/16 21:59 05:59 13:59 Intake Total 240 / 240 420 / 420 200 / 200 Output Total 1600 / 1600 1100 / 1100 Balance -1360 / -1360 -680 / -680 200 / 200 Weight 173 lb 8 oz Intake: Oral 240 / 240 420 / 420 200 / 200 Output: Urine Catheter Amount 1600 / 1600 1100 / 1100 Other: Meal Breakfast Percent of Meal Consumed 100% Feeding Ability Independent # [place] 0 - General Appearance General appearance: appears started age, frail EENT: mucous membranes moist Neck: no JVD Respiratory: clear Cardiology: no rub, edema, normal S1, normal S2 Gastrointestinal: no tenderness, no guarding Integumentary: no rash, warm and dry Neurologic: alert and oriented x3 Musculoskeletal: no erythema, no cyanosis Psychiatric: mood/affect appropriate - Lab 11/24/16 05:00 11/24/16 05:00 Most recent lab results Calcium 8.9 mg/dl (8.6-10.4) 11/24/16 05:00 Phosphorus 4.7 mg/dL (2.7-4.5) H 11/24/16 05:00 Magnesium 2.2 mg/dL (1.6-2.5) 11/24/16 05:00 Assessment and Plan (1) CKD (chronic kidney disease), stage IV renal function stable between s.creatinine 2.6-2.8, has declined since recent hospitalisation nephrotic range proteinuria chronic diabetic kidney disease with recent worsening in the setting of CHF fluid status much improved anemia Hb stable at around 8.0, low iron stores and CKD contributing renal osteodystrophy: phos down to4.7 on phoslo patient will likely be discharged today she should be discharged on bumex 1mg po daily please send specific instructions to SNF for low sodium diet (less than 2000mg/ day), fluid restriction to 1.5L also need to be on Nepro given low albumin coreg dose already increased so will follow and optimize antihypertensives she will receive another dose of venofer she will continue with oral iron will initiate aranesp once iron stores replete continue phoslo with meals for elevated phos level Will follow as outpt in a 7-10 days Thank you for giving me an opportunity to participate in Ms Rhodes's medical care , appreciate it Status: Acute (2) CHF (congestive heart failure) Status: Acute
[2016-11-24] MEDS ORDERED: amLODIPine 5 MG TABLET PO SCH (11:00)
--- NOTE | 2016-11-24 11:20 | Discharge Summary ---
Medical - DS: Prov Patient information: Note initiated : 11/24/16 at 11:13 am Service Date, if different from initiated Date: [] Patient: Shanda Rhodes 71 y/o F admitted on 11/19/16 for Frustrated about Care. Chief Complaint: [] Date of admission: 11/19/16 23:47 Discharge date: 11/24/16 Primary care physician: [f_Reg Prim Care Provider] Admitting clinician: Samra Ram Consults: 11/20/16 10:17 Consult to Physician [CONS] Routine Comment: Consulting Provider: Aimee Esparza Reason For Exam: Physician to Consult Discharging clinician: Samra Ram Medical - DS: Meds - Discharge Medications Prescriptions: Bumetanide [Bumex] 1 mg PO BIDD #60 tablet Calcium Acetate [Phoslo] 667 mg PO TIDCC #90 capsule Carvedilol [Coreg] 25 mg PO BIDCC #60 tablet Hydrocodone/APAP 7.5/325Mg [[place] 7.5/325Mg] 1 tab PO Q4HP PRN #30 tablet PRN Reason: Pain Insulin Glargine,Hum.rec.anlog [Lantus Solostar] 20 unit SQ DAILY #10 ml amLODIPine [Norvasc] 5 mg PO DAILY #30 tablet Active and Home Medications: Home Medications Gabapentin 600 mg PO BID 07/02/15 [History Confirmed 11/20/16 Last Taken 18:00] Insulin Lispro [Humalog] 0 unit SQ ACHS 07/02/15 [History Confirmed 11/20/16 Last Taken 11/19/16 18:00] Sotalol HCl [Sorine] 80 mg PO BID 07/02/15 [History Confirmed 11/20/16 Last Taken 11/19/16 18:00] Hydrocodone/APAP 7.5/325Mg [[place] 7.5/325Mg] 1 tab PO Q4HP PRN 07/03/15 [ History Confirmed 11/20/16 Last Taken 11/19/16 10:45] Levothyroxine Sodium [Synthroid] 112 mcg PO QAMAC 07/03/15 [History Confirmed Last Taken 11/19/16 06:30] Accu-Chek 1 each FS ACHS #30 strip 07/05/15 [Rx Confirmed 11/20/16 Last Taken 12:00] atorvastatin 80 mg tablet 80 mg PO QDAY 09/28/15 [History Confirmed 11/20/16 Last Taken 11/19/16 06:30] Albuterol Sulfate [Ventolin] 2 puff INH Q4-6HP PRN 11/10/16 [History Confirmed 11/20/16 Last Taken Unknown] Furosemide [Lasix] 40 mg PO QDAY PRN 11/10/16 [History Confirmed 11/20/16 Last Taken 11/19/16 13:35] Lactobacillus Acidophilus [Acidophilus] 1 each PO BID 11/10/16 [History Confirmed 11/20/16 Last Taken 11/19/16 17:00] levETIRAcetam [Levetiracetam] 500 mg PO BID 11/10/16 [History Confirmed Last Taken 11/19/16 18:00] Multivit-Min/FA/Lycopen/Lutein [A [employer] Multivit Tab] 1 tablet PO DAILY 11/11/16 [History Confirmed 11/20/16 Last Taken 11/19/16 06:30] Carvedilol [Coreg] 12.5 mg PO BIDCC #30 tablet 11/14/16 [Rx Confirmed 11/20/16 Last Taken 11/19/16 18:00] Isosorbide Dinitrate [Isordil] 20 mg PO TIDAC #60 tablet 11/14/16 [Rx Confirmed 11/20/16 Last Taken 11/19/16 18:00] hydrALAZINE [Apresoline] 25 mg PO TID #60 tablet 11/14/16 [Rx Confirmed Last Taken 11/19/16 18:00] Clopidogrel Bisulfate [Plavix] 75 mg PO DAILY 11/20/16 [History Confirmed Last Taken 11/19/16 08:00] Insulin Glargine,Hum.rec.anlog [Lantus Solostar] 10 unit SQ DAILY 11/20/16 [ History Confirmed 11/20/16 Last Taken 11/19/16 07:00] Medical - DS: Hosp Hospital course: Ms. Rhodes is a 71 year old female who was recently admitted to [facility] for PNA and chf exacerbation. Treated and discharged to [facility], [facility] because she was not feeling well, short of breath, fatigued and increased weight. ( The patient on the day before the admission had gone to a republican from the detention where in the nursing documents note that she and her daughter were tipsy when they returned) In the ER the patient was noted to be in fluid overload, and was admitted to the hospital for diastolic heart failure. patient had maida wbc count, neg procalciton and had just completed course of ABX. CHF Exacerbation: Due to non compliance with restrictions, she was treated with IV lasix bid, with good response, she is negative 9560ml since admission. The patient breathing is much better. She still needs oxygen and has leandro pleura effusion. She will be discharged back to the facility with bumex 1mg bid. CKD: Patient on presentation has worsening CKD, she was evaluated by nephrology , her CKD stems from her longstanding DM and HTN, on discharge her Creat is 1.8 , plan for her is bumex and follow up with nephrology as outpatient. She has been started on phos low for elevated phosphrus (from CKD). Anemia: Low hb noted, iron studies show low iron sats, hb on discharge is 8, stool occult blood is negative, likely from CKD, IV iron given, she will follow up with nephrology for possible epogen therapy. AMS/ Seizure Disorder: The patient was admitted to the hospital in [facility] with AMS, intubated and noted to have a seizure disorder, since then she notes she has left arm numbness, perioral numnbess which s waxing and waning in nature , I have advised her to follow up with neurology at discharge. Will refer her to Dr Valenzuela. The patient also noted headache this AM, with some nausea, CT head was promptly done and is negative, on my repeat evaluation she was sleeping in her room comfortably. Bilateral Atelectasis: The patient was recently treated for pneumonia, her x ray however was suggestive of leandro pna, ? aspiration, ST eval done, low risk of aspiration. CT chest shows leandro effusions with atelecasis, Pt does not have elevated wbc, no fever, no elevated procalcitonin. AT this time I do not feel antibiotics are warranged, cultres are negative. She must use her incentive spirometery 10 times every 2 hrs to help expand her lungs. She must also use her acapella treatment four times a day. This has been discussed with the patient. DM: Patient is being managed on lantus and lispro, Lantus presently is on 20 units, she needs to follow low carb diet, LIspro is low dose sliding scale. HTN: Patient is on coreg 12.5mg bid at home. She was also on hydralzaine and iso sorbide? I have stopped these medications given she does not have systolic heart failure. Dose of coreg increased to 25mg bid, she has been started on amlodipine 5mg once daily for BP. medications can be optimized as outpatient. 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 She has a pacemaker and her HR is paced at 60, she seems pacemaker dependent at this time. Abnormal LFT: Noted on presentation, which normalized later, USG abdomen was negative, hepatits panel neg for hep b and c. The abnl lft was a result of alcohol intake a couple of days prior to admission. Patient educated. Discharge diagnosis: diatolic heart failure - Time Spent with Patient Total time spent providing and/or coordinating discharge services: Greater than 30 minutes Medical - DS: Exam - Constitutional Vitals: Vital Signs Temp Pulse Pulse Resp BP Pulse Ox 11/24/16 08:00 97.7 F 84 16 174/69 96 11/24/16 07:35 96 11/24/16 07:23 62 18 94 11/24/16 03:37 97.9 F 72 14 164/68 93 11/23/16 23:39 97.4 F L 61 16 163/66 93 11/23/16 20:00 98.0 F 65 14 169/69 92 11/23/16 19:45 66 16 11/23/16 19:44 93 11/23/16 15:13 98.9 F 18 172/89 98 11/23/16 13:18 69 18 94 11/23/16 11:38 98.5 F 66 20 178/77 93 Intake and Output 11/23/16 11/24/16 11/24/16 21:59 05:59 13:59 Intake Total 240 / 240 420 / 420 200 / 200 Output Total 1600 / 1600 1100 / 1100 Balance -1360 / -1360 -680 / -680 200 / 200 Intake: Oral 240 / 240 420 / 420 200 / 200 Output: Urine Catheter Amount 1600 / 1600 1100 / 1100 Other: Meal Breakfast Percent of Meal Consumed 100% Feeding Ability Independent # Emeses 0 Weight 173 lb 8 oz Additional comments: Constitutional; Afebrile, cooperative, alert, not in distress. Eyes- No icterus, , No periorbital swelling Ears- Ext ear normal, hearing normal to conversation. Neck- Midline trachea, supple Respiratory system: Air Entry equal on both sides, No crackles or wheezing, no rhonchi. decased air entry at both bases. CVS- Rate rhythm regular, S1,S2 heard, no gallop, no rub. Abdomen- Soft nontender abdomen, no organomegaly, no tenderness, no guarding or rigidity, OPEN SHANK COVERER- AOOx3, moving all extremities, no gross focal deficit noted. Medical - DS: Data Labs on day of discharge: Labs from last 24 hours 11/24/16 11/24/16 11/23/16 05:00 05:00 04:20 WBC 4.0 L RBC 2.63 L Hgb 8.1 L Hct 24.6 L MCV 93.5 MCH 30.7 MCHC 32.8 RDW 15.6 H Plt Count 288 MPV 8.2 Gran % 56.3 Lymph % (Auto) 25.9 [place] % (Auto) 9.5 Eos % (Auto) 7.2 H Baso % (Auto) 1.1 Gran # 2.2 Lymph # 1.0 L [place] # 0.4 Eos # 0.3 Baso # 0 Sodium 135 Potassium 4.0 Chloride 93 L Carbon Dioxide 31 H Anion Gap 11.0 BUN 71 H Creatinine 2.6 H GFR Calculation 18 Glucose 109 H Uric Acid 9.8 H Calcium 8.9 Phosphorus 4.7 H Magnesium 2.2 Total Bilirubin 0.2 Direct Bilirubin < 0.2 GGT 74 H AST 19 ALT 23 Alkaline Phosphatase 128 H Lactate Dehydrogenase 214 Total Protein 5.6 L Albumin 2.8 L Globulin 2.8 Albumin/Globulin Ratio 1.0 Triglycerides 59 Random Vancomycin 13.9 Preliminary micro results at discharge 11/22/16 11:20 Blood Culture - Preliminary Blood 11/22/16 11:27 Blood Culture - Preliminary Blood Medical - DS: A/P - Patient/Caregiver Discharge Instructions Activity: as per physical therapy, increase activity as tolerated Diet: Low Sodium (2gm), Cardiac, Renal/Consistent Carbs Additional Instructions: Renal, Carb consistent, Cardiac diet. Fluid restriction to 1500ml in 24 hrs. Low sodium diet, limit sodium to 2000mg in 24 hrs. Nepro supplement with meals. Follow up with nephrology in 7-10 days Follow up with Neurology in 2 weeks, Dr Severino Valenzuela ([facility]) Follow up with PCP in 2 weeks No etoh, take medications as prescribed Monitor weight daily, Call your PCP if weight > 5 lbs over 24 hrs. Go to ER if sob, fever, chest pains or any new concerning symptoms Do not drive or use heavy machinary while on opiates. Incentive spirometery 10 times every 2 hrs to help with atelectasis. Acapella therapy four times a day. Prescriptions: Bumetanide [Bumex] 1 mg PO BIDD #60 tablet Calcium Acetate [Phoslo] 667 mg PO TIDCC #90 capsule Carvedilol [Coreg] 25 mg PO BIDCC #60 tablet Hydrocodone/APAP 7.5/325Mg [[place] 7.5/325Mg] 1 tab PO Q4HP PRN #30 tablet PRN Reason: Pain Insulin Glargine,Hum.rec.anlog [Lantus Solostar] 20 unit SQ DAILY #10 ml amLODIPine [Norvasc] 5 mg PO DAILY #30 tablet - Follow up Plan Follow up with: Scott Madrid MD [Primary Care Provider] - (Please call/schedule follow up.) Aimee Esparza MD [Physician] - Severino Valenzuela MD [Physician] - Disposition: Xfer SNF Prognosis: Fair Rehab Potential: Fair I certify that the patient requires SNF services: Yes Overall status at discharge: patient is progressing back to baseline Medical - DS: Qual - VTE Deep Vein Thrombosis/Pulmonary Embolism Present on Admission: No
== END 2016-11-24 14:25 ==
LOC: ED 19:43 → ICU 23:47 → MEDSUR 11-23 04:40
PROVIDERS: ADMIT Internal Medicine; ATTEND Internal Medicine

== ENCOUNTER 2017-08-22 09:32 | Inpatient (IN) ==
--- NOTE | 2017-08-22 10:08 | Emergency Department Note ---
Weakness HPI - General Chief complaint: Weakness Stated complaint: Weakness Time Seen by Provider: 08/22/17 09:48 Source: patient Mode of arrival: ambulatory Limitations: no limitations - History of Present Illness HPI Narrative: Patient here, poor historian. Brought in from home by ambulance, generally weak , unable to care for self at home. Reportedly recently discharged from residential to home, under the care of her daughter. Daughter is not currently at the bedside. Reported med noncompliance, pill packs at the bedside without apparent regular dosing. Patient states that she is very weak, denies chest pain states short of breath at baseline. No abdominal complaints. Per nursing, incontinent of urine, patient mainly unaware. Placed on oxygen due to hypoxia in the mid 80th percentile is not usually required at baseline. - Related Data Home Medications Medication Instructions Recorded Confirmed Levothyroxine Sodium [Synthroid] 112 mcg PO QAMAC 07/03/15 08/22/17 levETIRAcetam [Levetiracetam] 500 mg PO BID 11/10/16 08/22/17 Clopidogrel Bisulfate [Plavix] 75 mg PO DAILY 11/20/16 08/22/17 clonidine HCl 0.1 mg tablet 0.1 mg PO TID tab 12/07/16 08/22/17 metoclopramide 5 mg tablet 5 mg PO BID tab 12/07/16 08/22/17 gabapentin 300 mg tablet 300 mg PO HS 01/08/17 08/22/17 insulin glargine 100 unit/mL (3 See Label Instructions .ROUTE 01/08/17 04/25/17 mL) subcutaneous pen .COMPLEX ml Carvedilol [Coreg] 25 mg PO BID 08/22/17 08/22/17 Furosemide [Lasix] 40 mg PO DAILY 08/22/17 08/22/17 Hydrocodone/APAP 7.5/325Mg [[place] 1 tab PO Q6HP PRN 08/22/17 08/22/17 7.5/325Mg] Prochlorperazine Maleate 10 mg PO Q6HP PRN 08/22/17 08/22/17 [Compazine] amLODIPine [Norvasc] 10 mg PO BID 08/22/17 08/22/17 Previous Rx's Medication Instructions Recorded Accu-Chek 1 each FS ACHS #30 strip 07/05/15 Acetaminophen [Tylenol] 650 mg PO Q4-6HP PRN #0 tab 11/24/16 Calcium Acetate [Phoslo] 667 mg PO TIDCC #90 cap 11/24/16 Insulin Lispro [Humalog] See Protocol SQ ACHS #0 unit 11/24/16 Allergies Allergy/AdvReac Type Severity Reaction Status Date / Time Milk Containing Products AdvReac Mild Gastrointestinal Verified 04/25/17 16:43 Upset Review of Systems Limitations: ROS unobtainable due to patients medical condition Past Medical History - Past Medical History Attestation: Yes: The following information was validated with the patient. 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 Absent: lymphadenopathy Chest: Present: normal inspection Respiratory: Present: normal lung sounds bilaterally, other (Bibasilar crackles) . Absent: respiratory distress Cardiovascular: Present: regular rate, irregular rhythm Abdominal: Present: soft. Absent: tenderness Extremities: Present: other (2+ edema, stable chronic right ankle changes status post surgery) Neurological: Present: alert. Absent: oriented X3 Psychiatric: Present: flat affect Skin: Present: warm Course Vital Signs Temperature 98.6 F 08/22/17 09:34 Pulse Rate 77 08/22/17 09:34 Respiratory Rate 19 08/22/17 09:34 Blood Pressure 136/70 08/22/17 09:34 Pulse Oximetry (%) 85 L 08/22/17 09:34 Temperature 98.6 F 08/22/17 09:34 Pulse Rate 79 08/22/17 12:34 Respiratory Rate 17 08/22/17 12:34 Blood Pressure 140/54 08/22/17 12:34 Pulse Oximetry (%) 96 08/22/17 12:34 Weakness - Lab Data Lab results reviewed: Yes I reviewed the patient's lab results. Result diagrams: 08/22/17 10:12 08/22/17 10:12 Lab Results 08/22/17 08/22/17 08/22/17 Range/Units 10:12 10:12 10:12 WBC 10.3 (4.5-11.0) K/mcL RBC 2.76 L (4.00-5.20) M/mcL Hgb 8.6 L (12.0-15.0) g/dL Hct 25.1 L (36.0-48.0) % MCV 90.9 (80.0-100.0) fL MCH 31.1 (26.0-34.0) pg MCHC 34.2 (31.0-36.0) g/dL RDW 14.2 (11.5-14.5) % Plt Count 231 (140-440) K/mcL MPV 8.4 (7.4-10.4) fL Gran % 82.2 H (38.0-78.0) % Lymph % (Auto) 8.2 L (15.5-49.0) % [place] % (Auto) 7.1 (1.0-12.0) % Eos % (Auto) 2.2 (0.0-7.0) % Baso % (Auto) 0.3 (0.0-2.0) % Gran # 8.5 H (1.8-8.0) K/mcL Lymph # (Auto) 0.8 L (1.5-4.8) K/mcL [place] # (Auto) 0.7 (0.1-0.9) K/mcL Eos # (Auto) 0.2 (0.0-0.7) K/mcL Baso # (Auto) 0 (0.0-0.3) K/mcL VBG Lactic Acid 0.8 (0.5-2.2) mmol/L Sodium 135 (133-145) mmol/L Potassium 5.1 (3.3-5.1) mmol/L Chloride 97 (96-108) mmol/L Carbon Dioxide 18 L (22-30) mmol/L Anion Gap 20.0 H (8-16) BUN 119 H* (8-23) mg/dl Creatinine 3.6 H (0.6-1.1) mg/dl GFR Calculation 12 Glucose 285 H (70-105) mg/dL Calcium 8.7 (8.6-10.4) mg/dl Total Bilirubin 0.3 (0.0-1.0) mg/dL AST 25 (0-37) U/l ALT 20 (0-40) U/l Alkaline Phosphatase 128 H (39-117) U/L NT-Pro-B Natriuret Pep 96759.0 H (0-125) pg/ml Total Protein 6.9 (5.9-8.4) gm/dL Albumin 3.9 (3.2-5.2) gm/dL Globulin 3.0 (2.2-3.7) gm/dL Albumin/Globulin Ratio 1.3 (1.0-2.3) Procalcitonin (<0.10) ng/mL TSH 4.78 (0.27-5.01) uIU/ml Urine Color Urine Appearance Urine pH (5.0-9.0) Ur Specific [place] (1.000-1.035) Urine Protein (NEG) mg/dL Urine Glucose (UA) (NEG) mg/dL Urine Ketones (NEG) mg/dL Urine Occult Blood (<0.03) mg/dL Urine Nitrate (NEG) Urine Bilirubin (NEG) mg/dL Urine Urobilinogen (NEG) mg/dL Ur Leukocyte Esterase (NEG) /uL Urine RBC (0-1) /hpf Urine WBC (0-4) /hpf Ur Squamous Epith Cells (0-4) /hpf Amorphous Crystals (0) /hpf Urine Bacteria (0) /hpf Hyaline Casts (0-2) /lpf Ur Culture Indicated? 08/22/17 08/22/17 Range/Units 10:28 10:57 WBC (4.5-11.0) K/mcL RBC (4.00-5.20) M/mcL Hgb (12.0-15.0) g/dL Hct (36.0-48.0) % MCV (80.0-100.0) fL MCH (26.0-34.0) pg MCHC (31.0-36.0) g/dL RDW (11.5-14.5) % Plt Count (140-440) K/mcL MPV (7.4-10.4) fL Gran % (38.0-78.0) % Lymph % (Auto) (15.5-49.0) % [place] % (Auto) (1.0-12.0) % Eos % (Auto) (0.0-7.0) % Baso % (Auto) (0.0-2.0) % Gran # (1.8-8.0) K/mcL Lymph # (Auto) (1.5-4.8) K/mcL [place] # (Auto) (0.1-0.9) K/mcL Eos # (Auto) (0.0-0.7) K/mcL Baso # (Auto) (0.0-0.3) K/mcL VBG Lactic Acid (0.5-2.2) mmol/L Sodium (133-145) mmol/L Potassium (3.3-5.1) mmol/L Chloride (96-108) mmol/L Carbon Dioxide (22-30) mmol/L Anion Gap (8-16) BUN (8-23) mg/dl Creatinine (0.6-1.1) mg/dl GFR Calculation Glucose (70-105) mg/dL Calcium (8.6-10.4) mg/dl Total Bilirubin (0.0-1.0) mg/dL AST (0-37) U/l ALT (0-40) U/l Alkaline Phosphatase (39-117) U/L NT-Pro-B Natriuret Pep (0-125) pg/ml Total Protein (5.9-8.4) gm/dL Albumin (3.2-5.2) gm/dL Globulin (2.2-3.7) gm/dL Albumin/Globulin Ratio (1.0-2.3) Procalcitonin 0.12 (<0.10) ng/mL TSH (0.27-5.01) uIU/ml Urine Color Yellow Urine Appearance Hazy Urine pH 5.0 (5.0-9.0) Ur Specific [place] 1.014 (1.000-1.035) Urine Protein 100 A (NEG) mg/dL Urine Glucose (UA) 50 A (NEG) mg/dL Urine Ketones Neg (NEG) mg/dL Urine Occult Blood Neg (<0.03) mg/dL Urine Nitrate Neg (NEG) Urine Bilirubin Neg (NEG) mg/dL Urine Urobilinogen Neg (NEG) mg/dL Ur Leukocyte Esterase Neg (NEG) /uL Urine RBC < 1 (0-1) /hpf Urine WBC < 1 (0-4) /hpf Ur Squamous Epith Cells < 1 (0-4) /hpf Amorphous Crystals Few A (0) /hpf Urine Bacteria 0 (0) /hpf Hyaline Casts < 1 (0-2) /lpf Ur Culture Indicated? No - Radiology Data Radiology results reviewed: Yes I reviewed the patient's radiology results. Chest x-ray suggests volume overload with pulmonary edema Disposition Pt seen by ELECTRICAL ENGINEERING DIRECTOR/PA only: No Clinical Impression: Acute exacerbation of CHF (congestive heart failure), Acute kidney injury superimposed on chronic kidney disease, Prerenal renal failure, Dementia, Hypoxia Summary: Discussed with hospitalist, willing for admit Poor candidate for discharge to home, likely require residential due to med management and ADLs Disposition: Xfer As Inpt ([facility]) Condition: Fair Referrals: Scott Madrid MD [Primary Care Provider] -
--- NOTE | 2017-08-22 10:19 | XRay Report ---
HISTORY: Reason for Exam:hypoxia, confusion FINDINGS: The heart is mildly enlarged and has increased in size since 04/28/17. There are generalized alveolar opacities in both lungs, predominantly involving the lower lobes. There may be a small left-sided pleural effusion. The pulmonary vessels are enlarged. Dual-chamber pacemaker remains well-positioned. IMPRESSION: Congestive heart with pulmonary edema. Superimposed pneumonia in the lower lobes cannot be excluded. Interpreted and Authenticated by: Juan Viera 08/22/17
[2017-08-22 10:50] LABS: Basophils # (Auto) 0 K/mcL (0.0-0.3); Basophils % (Auto) 0.3 % (0.0-2.0); Eosinophils # (Auto) 0.2 K/mcL (0.0-0.7); Eosinophils % (Auto) 2.2 % (0.0-7.0); Granulocytes % (Auto) 82.2 % (38.0-78.0); Lymphocytes # (Auto) 0.8 K/mcL (1.5-4.8); Lymphocytes % (Auto) 8.2 % (15.5-49.0); Mean Cell Volume 90.9 fL (80.0-100.0); Mean Corpuscular HGB Conc 34.2 g/dL (31.0-36.0); Mean Corpuscular Hemoglobin 31.1 pg (26.0-34.0); Monocytes # (Auto) 0.7 K/mcL (0.1-0.9); Monocytes % (Auto) 7.1 % (1.0-12.0); Platelet Count 231 K/mcL (140-440); RBC 2.76 M/mcL (4.00-5.20); Red Cell Distribution Width 14.2 % (11.5-14.5)
[2017-08-22 11:24] LABS: Appearance,Urine HAZY; Bilirubin,Urine NEG (NEG); Color,Urine YELLOW; Glucose,Urine (UA) 50 mg/dL (NEG); Leukocyte Esterase,Urine NEG /uL (NEG); Protein,Urine 100 mg/dL (NEG); Specific Gravity,Urine 1.014 (1.000-1.035); Urine Blood NEG mg/dL (<0.03); Urobilinogen,Urine NEG (NEG)
[2017-08-22 11:42] LABS: ALT/SGPT 20 U/l (0-40); Albumin 3.9 gm/dL (3.2-5.2); Albumin/Globulin Ratio 1.3 (1.0-2.3); Alkaline Phosphatase 128 U/L (39-117); Blood Urea Nitrogen 119 mg/dl (8-23)
[2017-08-22 11:45] LABS: Bacteria,Urine 0 /hpf (0); Urine Amorphous Crystals FEW /hpf (0); Urine Hyaline Cast < 1 /lpf (0-2); Urine RBC < 1 /hpf (0-1); Urine Squamous Epithelial Cell < 1 /hpf (0-4); Urine WBC < 1 /hpf (0-4)
[2017-08-22] MEDS ORDERED: FUROSEMIDE 40 MG/4 ML VIAL IV ONE (15:04)
[2017-08-22] MEDS ORDERED: DEXTROSE 50% 50 ML VIAL IV PRN (15:04)
[2017-08-22] MEDS ORDERED: DEXTROSE 31 GM ORAL.SUSP PO PRN (15:04)
--- NOTE | 2017-08-22 15:31 | Nephrology Consult Note ---
History of Present Illness - Reason for Consult Patient information: Note initiated : 08/22/17 at 3:28 pm Service Date, if different from initiated Date: [] Patient: Shanda Rhodes a 71 y/o F admitted on 08/22/17 for Weakness. Chief Complaint: [] Consult date: 08/22/17 - Chief Complaint Weakness - History of Present Illness Shanda Rhoeds is a [id number] female with chronic kidney disease stage 3 ( followed by Dr Esparza), vitamin D deficiency, secondary hyperparathyroidism, chronic anemia due to renal failure, hypertension and diabetes mellitus type 2, coronary artery disease s/p stents, s/p AICD placement, admitted on 08/22/16. She presented to ED for weakness and shaking. She was recently discharged from [facility] to home, under the care of her daughter. Daughter is not currently at the bedside. Medication noncompliance suspected. Review of Systems Constitutional: fatigue, lethargy, weakness Nose, mouth and throat: no headache(s), no sore throat Cardiovascular: no chest pain, no palpatations Respiratory: dyspnea, no wheezing Gastrointestinal: no abdominal pain, no diarrhea Genitourinary: urinary incontinence, no dysuria Musculoskeletal: no joint swelling, no neck pain Integumentary: no lesions, no rash Neurological: weakness Psychiatric: no anxiety, no confusion Endocrine: no heat intolerance Allergic/Immunologic: no tongue swelling, no throat swelling Past History Past medical history: Medical History (Last Reviewed 03/23/17 @ 10:53 by Aimee Esparza MD) Upper respiratory infection (Acute) Urinary tract infection (Acute) CVA (cerebral vascular accident) (Acute) UTI (urinary tract infection) (Acute) Vasovagal syncope (Acute) Sinusitis (Acute) Diabetes type 1, uncontrolled (Acute) Injury of right rotator cuff (Acute) Community acquired pneumonia (Acute) Pneumonia (Acute) CHF (congestive heart failure) (Acute) Congestive heart failure (Acute) CKD (chronic kidney disease), stage IV (Acute) Myoclonus (Acute) CHF (congestive heart failure) (Acute) Type 2 diabetes mellitus (Chronic) Hyperparathyroidism due to renal insufficiency (Chronic) Anemia (Chronic) Hypertensive renal disease (Chronic) CKD (chronic kidney disease), stage III (Chronic) Diabetic ketoacidosis associated with type 2 diabetes mellitus (Acute) Past family history: No history of kidney disease in her parents. Past social history: smoking status: Never smoker Medications and Allergies Home Medications Medication Instructions Recorded Confirmed Type Levothyroxine Sodium [Synthroid] 112 mcg PO QAMAC 07/03/15 08/22/17 History Accu-Chek 1 each FS ACHS #30 strip 07/05/15 04/25/17 Rx levETIRAcetam [Levetiracetam] 500 mg PO BID 11/10/16 08/22/17 History Clopidogrel Bisulfate [Plavix] 75 mg PO DAILY 11/20/16 08/22/17 History Acetaminophen [Tylenol] 650 mg PO Q4-6HP PRN #0 tab 11/24/16 04/25/17 Rx Calcium Acetate [Phoslo] 667 mg PO TIDCC #90 cap 11/24/16 08/22/17 Rx Insulin Lispro [Humalog] See Protocol SQ ACHS #0 unit 11/24/16 04/25/17 Rx clonidine HCl 0.1 mg tablet 0.1 mg PO TID tab 12/07/16 08/22/17 History metoclopramide 5 mg tablet 5 mg PO BID tab 12/07/16 08/22/17 History gabapentin 300 mg tablet 300 mg PO HS 01/08/17 08/22/17 History insulin glargine 100 unit/mL (3 See Label Instructions .ROUTE 01/08/17 04/25/17 History mL) subcutaneous pen .COMPLEX ml Carvedilol [Coreg] 25 mg PO BID 08/22/17 08/22/17 History Furosemide [Lasix] 40 mg PO DAILY 08/22/17 08/22/17 History Hydrocodone/APAP 7.5/325Mg [[place] 1 tab PO Q6HP PRN 08/22/17 08/22/17 History 7.5/325Mg] Prochlorperazine Maleate 10 mg PO Q6HP PRN 08/22/17 08/22/17 History [Compazine] amLODIPine [Norvasc] 10 mg PO BID 08/22/17 08/22/17 History Allergies Allergy/AdvReac Type Severity Reaction Status Date / Time Milk Containing Products AdvReac Mild Gastrointestinal Verified 04/25/17 16:43 Upset Exam - Vital Signs Vital signs: Temp Pulse Resp BP Pulse Ox 98.6 F 66 21 166/64 98 08/22/17 09:34 08/22/17 14:40 08/22/17 14:40 08/22/17 14:32 08/22/17 14:40 - General Appearance General appearance: appears started age, fatigue, frail EENT: mucous membranes moist Respiratory: rales (few) Cardiology: normal S1, normal S2 Gastrointestinal: no tenderness Integumentary: no rash Psychiatric: mood/affect appropriate, cooperative Additional exam: Lower extremity weakness, not new. No significant leg edema. Yellow urine, 200 ml in Baker bag. Skin pale. Results - Lab Results 08/22/17 10:12 08/22/17 10:12 Most recent lab results Calcium 8.7 mg/dl (8.6-10.4) 08/22/17 10:12 Assessment and Plan (1) Acute renal failure superimposed on stage 3 chronic kidney disease Discussed with Dr. Esparza and hospitalist. No indication for urgent acute hemodialysis at this point. She has good urine output so far. Will monitor dialysis need. Status: Acute Priority: High (2) Metabolic acidosis Will add Sodium Bicarbonate 1300 mg PO TID. Status: Acute Priority: Medium (3) Anemia in stage 3 chronic kidney disease Status: Chronic Priority: Low (4) Secondary hyperparathyroidism of renal origin Status: Chronic Priority: Low
[2017-08-22] MEDS: ACETAMINOPHEN 325 MG TABLET PO PRN (15:38)
--- NOTE | 2017-08-22 16:43 | Internal Med History&Physical ---
Medical - H&P: HPI Patient information: Note initiated : 08/22/17 at 4:41 pm Service Date, if different from initiated Date: [] Patient: Shanda Rhodes a 71 y/o F admitted on 08/22/17 for Weakness. Chief Complaint: Weakness History of present illness: Ms. Rhodes is a 71 year old F He presents from home with progressive failure to thrive. Patient has underlying dementia, stage III chronic kidney disease, type 2 diabetes, congestive heart failure. History is obtained speaking to the patient, as well as history obtained from the daughter which was relayed by Dr. carrasco from the ED, as well as reviewing her extensive record. She was in the [facility] facility up until about a week ago after a left fibular fracture, which was treated at [facility]. Since she's returned home, it's unclear if she is taking her medications correctly. Her daughter states many of her blister packs or spread about, she appears to have missed doses, and there is concern she may been using medications from prior medical regimens. Patient currently complains of just not feeling well, of her legs getting worse and becoming painful from her neuropathy, she is also complaining of throbbing in her mid chest. She also states her abdomen is aching at times, she's had intermittent nausea, no emesis , no diarrhea. She's had normal urine output is not felt any dysuria. She's had some headache, no sore throat, no fever. Her glucoses have been low and high, she did not eat last night, she states that she couldn't find food at home. The patient is describing some "throbbing" discomfort in her mid chest which waxes and wanes, it's not associated with dyspnea, magali, does not radiate. It does not appear to be exertional. she denies any cough or sputum production, no pleuritic chest pain. No orthopnea. She is complaining of pain in her feet with some swelling, she attributes the pain to worsening of her neuropathy. In the emergency department, patient's found to be hypoxic with room air saturation in the 80s, requiring 5 L nasal cannula to maintain normoxia. She has evidence of volume overload on exam and on chest radiograph is being admitted for acute congestive heart failure. In addition she has worsening of her baseline chronic kidney disease. All systems: reviewed and no additional remarkable complaints except as stated Medical - H&P: PMH Medical history: CVA (cerebral vascular accident) (Acute) Congestive heart failure (Acute) CKD (chronic kidney disease), stage IV (Acute) Type 2 diabetes mellitus (Chronic) Hyperparathyroidism due to renal insufficiency (Chronic) Anemia (Chronic) Hypertension Hypertensive renal disease (Chronic) Seizure disorder Hypothyroidism Vasovagal syncope (Acute) Sinusitis (Acute) Injury of right rotator cuff (Acute) Community acquired pneumonia (Acute) Myoclonus (Acute) Diabetic ketoacidosis associated with type 2 diabetes mellitus (Acute) Upper respiratory infection (Acute) Urinary tract infection (Acute) Pertinent family history: Family history notable for diabetes, hypertension, coronary artery disease Social history: Patient was recently released from [facility] about 1 week ago after stay there with a fibula fracture. She has been living alone. She does not smoke or drink. Medical - H&P: Meds Home Medications Medication Instructions Recorded Confirmed Type Levothyroxine Sodium [Synthroid] 112 mcg PO QAMAC 07/03/15 08/22/17 History Accu-Chek 1 each FS ACHS #30 strip 07/05/15 08/22/17 Rx levETIRAcetam [Levetiracetam] 500 mg PO BID 11/10/16 08/22/17 History Clopidogrel Bisulfate [Plavix] 75 mg PO DAILY 11/20/16 08/22/17 History Acetaminophen [Tylenol] 650 mg PO Q4-6HP PRN #0 tab 11/24/16 08/22/17 Rx Calcium Acetate [Phoslo] 667 mg PO TIDCC #90 cap 11/24/16 08/22/17 Rx Insulin Lispro [Humalog] See Protocol SQ ACHS #0 unit 11/24/16 08/22/17 Rx clonidine HCl 0.1 mg tablet 0.1 mg PO TID tab 12/07/16 08/22/17 History metoclopramide 5 mg tablet 5 mg PO BID tab 12/07/16 08/22/17 History gabapentin 300 mg tablet 300 mg PO HS 01/08/17 08/22/17 History insulin glargine 100 unit/mL (3 See Label Instructions .ROUTE 01/08/17 08/22/17 History mL) subcutaneous pen .COMPLEX ml Carvedilol [Coreg] 25 mg PO BID 08/22/17 08/22/17 History Ferrous Sulfate [High Potency Iron] 65 mg PO BID 08/22/17 08/22/17 History Furosemide [Lasix] 40 mg PO DAILY 08/22/17 08/22/17 History Hydrocodone/APAP 7.5/325Mg [[place] 0.5 tab PO Q6HP PRN 08/22/17 08/22/17 History 7.5/325Mg] Prochlorperazine Maleate 10 mg PO Q6HP PRN 08/22/17 08/22/17 History [Compazine] amLODIPine [Norvasc] 10 mg PO BID 08/22/17 08/22/17 History Allergies Allergy/AdvReac Type Severity Reaction Status Date / Time lactose AdvReac Mild Gastrointestinal Verified 08/22/17 17:17 Upset Medical - H&P: Exam - Constitutional Vitals: Temp Pulse Resp BP Pulse Ox 98.6 F 66 21 166/64 98 08/22/17 09:34 08/22/17 14:40 08/22/17 14:40 08/22/17 14:32 08/22/17 14:40 Exam: General: Alert, laying a hospital gurney, appears uncomfortable HEENT: Normocephalic. Pupils are equally round and reactive to light. Sclera are anicteric. No conjunctival injection. Oropharynx is with moist mucous membranes, no lip or gum lesions. Tongue is midline. Neck: Supple, no meningismus. No thyromegaly. Chest: Few bibasilar rales, no wheezes or rhonchi, respirations are unlabored Cardiovascular: Regular rate and rhythm without murmur gallop or rub. Carotid pulses are 1+ with Right bruit. There is trace lower extremity edema. JVP is elevated to angle of jaw while lying raised approximately 30 degrees. Abdomen: Soft, nontender without guarding or rebound. Active bowel sounds. No hepatosplenomegaly. Lymphatic: No cervical or supraclavicular lymphadenopathy. Skin: Warm, dry. No rash. Skin turgor is decreased Musculoskeletal: No joint erythema or tenderness. Normal range of motion in the upper and lower extremities. Strength 5-/5 in upper and lower extremities, with generalized weakness. Digits without cyanosis or clubbing. Neuro: Alert, oriented X3. Cranial nerves II through XII grossly intact. Sensation intact to light touch. Medical - H&P: Reslt - Labs CBC & Chem 7: 08/22/17 10:12 08/22/17 10:12 Labs: Short CBC 08/22/17 Range/Units 10:12 WBC 10.3 (4.5-11.0) K/mcL Hgb 8.6 L (12.0-15.0) g/dL Hct 25.1 L (36.0-48.0) % Plt Count 231 (140-440) K/mcL BMP 08/22/17 10:12 Sodium 135 Potassium 5.1 Chloride 97 Carbon Dioxide 18 L BUN 119 H* Creatinine 3.6 H Glucose 285 H Calcium 8.7 Liver Function 08/22/17 Range/Units 10:12 Total Bilirubin 0.3 (0.0-1.0) mg/dL AST 25 (0-37) U/l ALT 20 (0-40) U/l Alkaline Phosphatase 128 H (39-117) U/L Albumin 3.9 (3.2-5.2) gm/dL Urine 08/22/17 Range/Units 10:57 Urine Color Yellow Urine Appearance Hazy Urine pH 5.0 (5.0-9.0) Ur Specific Ennice 1.014 (1.000-1.035) Urine Protein 100 A (NEG) mg/dL Urine Glucose (UA) 50 A (NEG) mg/dL Few hyaline casts on urine microscopic - EKG Data EKG comments: Atrially paced, regular rate, no ST elevation - Imaging and Cardiology Chest x-ray Status: image reviewed by me Additional comments: MPRESSION: Congestive heart with pulmonary edema. Superimposed pneumonia in the lower lobes cannot be excluded. Medical - H&P: A/P (1) Acute exacerbation of CHF (congestive heart failure) Current visit: Yes Status: Acute (2) Acute renal failure superimposed on stage 3 chronic kidney disease Current visit: Yes Status: Acute (3) Acute respiratory failure with hypoxia Current visit: Yes Status: Acute (4) Dementia Current visit: Yes Status: Chronic (5) Diabetes mellitus type 2 with complications Current visit: Yes Status: Chronic - Narrative A/P Narrative: 71-year-old female with a history of congestive heart failure, chronic kidney disease, dementia presents with failure to thrive at home, found to have volume overload/congestive heart failure as well as acute hypoxic respiratory failure. Acute on chronic congestive heart failure, presumptive diastolic (notation of diastolic heart failure in the chart). No current echocardiogram available for evaluation. Etiology may be medical noncompliance, patient was discharged from a skilled facility one week ago, apparently her medications were disorganized is unclear if she had been taking them as instructed. She is complaining of some chest "throbbing" in the mid chest, but no acute injury on EKG. Dietary indiscretion may also played a role. Plan: #1 inpatient admission #2 diurese, though this may be hindered by her renal insufficiency #3 check echocardiogram #4 trend troponins, though they may be elevated secondary to renal failure #5 resume home medications Acute renal failure and chronic kidney disease stage III. Both BUN and creatinine are elevated. This may represent cardiorenal state due to decompensated heart failure and volume overload. Urine sediment is bland. No apparent nephrotoxin use, though the patient is not terribly clear on what medication she may been using. Plan: Closely follow renal function with diuresis and treatment of congestive heart failure. Nephrology consultation. Acute hypoxic respiratory failure. Chest radiograph consistent with volume overload and congestive heart failure. This likely explains her hypoxia and acute respiratory failure. On room air at baseline. Plan: Supplemental oxygen as needed, expect her oxygen needs will decrease with correction of volume. Dementia. Patient appears to have trouble caring for herself at home since her discharge from skilled facility. Plan: Supportive care, social work associate consultation. Type 2 diabetes mellitus. The patient is complaining of high and low glucose recently, apparently her oral intake had been variable. Plan: Control carbohydrate as well as low-sodium diet, continue with her Lantus at 15 units in the morning, 7 units at bedtime, sliding scale insulin, Accu- Cheks. Check hemoglobin A1c. Right carotid bruit. I do not see recent mention of bruit and clinic notes, though she has been lost to follow-up for a while. No recent carotid imagingis noted in the record. Plan: Check carotid duplex. History of cerebrovascular accident. Plan: Continue with Plavix and statin. History of seizure disorder, no current seizure activity. Plan: Continue with Keppra CODE STATUS is discussed with the patient, is DO NOT RESUSCITATE. Prophylaxis: Subcutaneous heparin.
[2017-08-22] MEDS: INSULIN LISPRO 1 UNIT/0.01 ML UNIT SQ SCH ×2 (17:06→20:52)
[2017-08-22] MEDS: SODIUM BICARBONATE 650 MG TABLET PO SCH ×2 (17:06→20:58)
[2017-08-22] MEDS: CALCIUM ACETATE 667 MG CAPSULE PO SCH (17:19)
[2017-08-22] MEDS: FERROUS SULFATE 325 MG TABLET PO SCH (17:19)
[2017-08-22] MEDS: METOCLOPRAMIDE 10 MG TABLET PO SCH (17:19)
[2017-08-22] MEDS: CARVEDILOL 12.5 MG TABLET PO SCH (17:19)
[2017-08-22 20:03] LABS: Hemoglobin A1C 7.1 % HGB (4.0-6.0)
[2017-08-22] MEDS: HEPARIN 5,000 UNIT/ML VIAL SQ SCH (20:52)
[2017-08-22] MEDS: INSULIN GLARGINE, HUMAN 1 UNIT/0.01 ML SQ SCH (20:53)
[2017-08-22] MEDS: HYDROCODONE/APAP 7.5/325MG TABLET PO PRN (20:53)
[2017-08-22] MEDS: amLODIPine 10 MG TABLET PO SCH (20:54)
[2017-08-22] MEDS: FAMOTIDINE 20 MG TABLET PO SCH (20:54)
[2017-08-22] MEDS: cloNIDine HCL 0.1 MG TABLET PO SCH (20:54)
[2017-08-22] MEDS: GABAPENTIN 300 MG CAPSULE PO SCH (20:54)
[2017-08-22] MEDS: levETIRAcetam 500 MG TABLET PO SCH (20:58)
[2017-08-23] MEDS: HYDROCODONE/APAP 7.5/325MG TABLET PO PRN (03:47)
[2017-08-23 05:42] LABS: Basophils # (Auto) 0 K/mcL (0.0-0.3); Basophils % (Auto) 0.3 % (0.0-2.0); Eosinophils # (Auto) 0.2 K/mcL (0.0-0.7); Granulocytes % (Auto) 85.1 % (38.0-78.0); Lymphocytes # (Auto) 0.6 K/mcL (1.5-4.8); Lymphocytes % (Auto) 6.2 % (15.5-49.0); Mean Cell Volume 92.3 fL (80.0-100.0); Mean Corpuscular HGB Conc 33.3 g/dL (31.0-36.0); Mean Corpuscular Hemoglobin 30.7 pg (26.0-34.0); Monocytes # (Auto) 0.6 K/mcL (0.1-0.9); Monocytes % (Auto) 6.4 % (1.0-12.0); Platelet Count 207 K/mcL (140-440); RBC 2.57 M/mcL (4.00-5.20); Red Cell Distribution Width 14.6 % (11.5-14.5)
[2017-08-23] MEDS: LEVOTHYROXINE SODIUM 112 MCG TABLET PO SCH (07:18)
[2017-08-23] MEDS: METOCLOPRAMIDE 10 MG TABLET PO SCH ×3 (07:18→18:15)
[2017-08-23] MEDS: ACETAMINOPHEN 325 MG TABLET PO PRN ×2 (07:19→15:09)
[2017-08-23 07:20] LABS: ALT/SGPT 17 U/l (0-40); Albumin 3.9 gm/dL (3.2-5.2); Albumin/Globulin Ratio 1.5 (1.0-2.3); Alkaline Phosphatase 118 U/L (39-117); Bilirubin,Direct < 0.2 mg/dL (0.0-0.3); Blood Urea Nitrogen 119 mg/dl (8-23); Gamma Glutamyl Transpeptidase 61 U/L (5-36); Uric Acid 9.3 mg/dL (2.5-8.0)
[2017-08-23] MEDS: INSULIN GLARGINE, HUMAN 1 UNIT/0.01 ML SQ SCH ×2 (08:30→20:15)
[2017-08-23] MEDS: INSULIN LISPRO 1 UNIT/0.01 ML UNIT SQ SCH ×4 (08:30→20:14)
[2017-08-23] MEDS: SODIUM BICARBONATE 650 MG TABLET PO SCH ×3 (08:34→20:19)
[2017-08-23] MEDS: levETIRAcetam 500 MG TABLET PO SCH ×2 (08:34→20:19)
[2017-08-23] MEDS: HEPARIN 5,000 UNIT/ML VIAL SQ SCH ×2 (08:34→20:15)
[2017-08-23] MEDS: CLOPIDOGREL 75 MG TABLET PO SCH (08:35)
[2017-08-23] MEDS: cloNIDine HCL 0.1 MG TABLET PO SCH ×3 (08:35→20:14)
[2017-08-23] MEDS: FERROUS SULFATE 325 MG TABLET PO SCH ×3 (08:35→18:15)
[2017-08-23] MEDS: CALCIUM ACETATE 667 MG CAPSULE PO SCH ×4 (08:35→18:15)
[2017-08-23] MEDS: CARVEDILOL 12.5 MG TABLET PO SCH ×3 (08:35→18:15)
[2017-08-23] MEDS: amLODIPine 10 MG TABLET PO SCH ×2 (08:35→20:14)
[2017-08-23] MEDS: FAMOTIDINE 20 MG TABLET PO SCH ×2 (08:35→20:13)
--- NOTE | 2017-08-23 08:52 | Ultrasound Report ---
CLINICAL INFORMATION: Right carotid bruit and stroke COMPARISON: None. TECHNIQUE: Carotid arteries were imaged in sagittal and transverse planes using 5 mHz linear probe: Doppler, color, and 2D. FINDINGS: See worksheet by the technologist for velocities in PACS there is a moderate amount of mixed plaque throughout the left common carotid and in the distal right common carotid near the bifurcation. There is also plaque formation in the carotid bifurcation bilaterally. Greater than 70% stenosis is present in the right proximal external carotid. There are 50-69% stenoses in the internal carotids bilaterally. There is no dissection or aneurysm. Vertebral arteries have normal blood flow. Please correlate with CTA CT Angiography or MRA MR Angiography if surgery is contemplated. IMPRESSION: Greater than 70% stenosis of the right external carotid 50-69% stenoses of the internal carotids bilaterally Interpreted and Authenticated by: Juan Viera 08/23/17
--- NOTE | 2017-08-23 10:11 | XRay Report ---
HISTORY: Reason for Exam:Follow up pulmonary edema FINDINGS: There is a moderate generalized alveolar opacity in the right lower lobe with milder involvement the left lower lobe. This has become worse in the right lower lobe since 08/22/17. The pulmonary vessels are still engorged and the heart is mildly enlarged. Pacemaker is well-positioned. There may be a tiny right-sided pleural effusion. IMPRESSION: Persistent congestive heart failure Increasing consolidation in the right lower lobe. Superimposed pneumonia is suspected. Interpreted and Authenticated by: Juan Viera 08/23/17
[2017-08-23 10:16] LABS: Iron 22 mcg/dl (37-145); Transferrin % Saturation 11 % (15-50); Unsaturated Iron Binding 174 mcg/dL (112-346)
[2017-08-23] MEDS ORDERED: MAGNESIUM HYDROXIDE 30 ML ORAL.SUSP PO PRN (12:41)
[2017-08-23] MEDS ORDERED: FUROSEMIDE 40 MG/4 ML VIAL IV SCH (16:00)
--- NOTE | 2017-08-23 17:08 | Nephrology Progress Note ---
Subjective Patient information: Note initiated : 08/23/17 at 5:06 pm Service Date, if different from initiated Date: [] Patient: Shanda Rhodes 71 y/o F admitted on 08/22/17 for Weakness/CHF, Renal Failure. Chief Complaint: [] Principal diagnosis: acute on chronic renal failure, pul edema Interval history: Patient seen this am no new issues denies WORSENIGN sob, oxygen requirement is a little better no edema no nausea, vomiting feels weak no CP denies any other symptoms Pertinent ROS: as above Objective - Vital Signs Vital signs: Vital Signs Temp Pulse Resp BP Pulse Ox 08/23/17 15:24 99.4 F H 62 18 135/58 93 08/23/17 12:43 97 08/23/17 12:24 99.7 F H 66 22 122/90 95 08/23/17 08:00 98.8 F 60 18 145/53 97 08/23/17 07:24 60 96 08/23/17 03:56 100.8 F H 61 16 144/52 91 08/23/17 00:07 98.1 F 62 16 131/66 95 08/22/17 19:04 99.1 F H 65 18 146/63 98 Intake and Output 08/23/17 08/23/17 08/23/17 05:59 13:59 21:59 Intake Total 180 / 180 360 / 360 Output Total 650 / 650 340 / 340 160 / 160 Balance -650 / -650 -160 / -160 200 / 200 Intake: Oral 180 / 180 360 / 360 Output: Urine Catheter Amount 650 / 650 340 / 340 160 / 160 Other: Meal Breakfast Percent of Meal Consumed 100% Feeding Ability Assist with Tray Set Up Weight 148 lb 8 oz Patient Weight 08/24/17 05:59 Weight 148 lb 8 oz Intake & Output: Intake & Output 08/23/17 08/23/17 08/23/17 05:59 13:59 21:59 Intake Total 180 / 180 360 / 360 Output Total 650 / 650 340 / 340 160 / 160 Balance -650 / -650 -160 / -160 200 / 200 Weight 148 lb 8 oz Intake: Oral 180 / 180 360 / 360 Output: Urine Catheter Amount 650 / 650 340 / 340 160 / 160 Other: Meal Breakfast Percent of Meal Consumed 100% Feeding Ability Assist with Tray Set Up - General Appearance General appearance: appears started age, chronically ill EENT: mucous membranes moist Neck: no JVD Respiratory: rales Cardiology: no rub, no edema, normal S1, normal S2 Gastrointestinal: no tenderness, no guarding Integumentary: warm and dry Neurologic: alert and oriented x3 Musculoskeletal: no erythema, no cyanosis Psychiatric: mood/affect appropriate - Lab 08/23/17 03:30 08/23/17 03:30 Most recent lab results Calcium 8.6 mg/dl (8.6-10.4) 08/23/17 03:30 Phosphorus 3.8 mg/dL (2.7-4.5) 08/23/17 03:30 Magnesium 2.6 mg/dL (1.6-2.5) H 08/23/17 03:30 Assessment and Plan (1) Acute on chronic renal failure BUN is upto 119, s.creat is at 3.6-3.5 renal function fluctuates, worse again ? 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 and HTN with h/o nephrotic range proteinuria non oliguric no K issues, mild acidosis started on bicarb supplement she does have significant anemia from iron deficiency and CKD ? has pNA per radiology findings labs discussed with the patient I will increase her lasix dose to 40mg iv tid, will follow the response and optimize will initiate IV iron will follow renal function, no emergent need for [facility] but if does not improve or worsens will need to initiate the same ? needs antibiotics, has mild fever with xray s/o PNA, will defer to Dr Cardoza please monitor renal function dose meds per renal function avoid nephrotoxic meds Status: Acute (2) Anemia Status: Acute (3) CHF (congestive heart failure) Status: Acute
[2017-08-23] MEDS ORDERED: FUROSEMIDE 40 MG/4 ML VIAL IV ONE (17:38)
[2017-08-23] MEDS ORDERED: VANCOMYCIN PER PHARMACY IV SCH (17:51)
[2017-08-23] MEDS ORDERED: VANCOMYCIN 1,000 MG in 0.9 % SODIUM CHLORIDE 250 ML IV ONE (18:00)
[2017-08-23] MEDS: ONDANSETRON 4 MG/2 ML VIAL IV PRN (18:06)
[2017-08-23] MEDS: PIPERACILLIN SODIUM/TAZOBACTAM 2.25 GM in DEXTROSE 5% IN WATER 50 ML IV SCH (18:38)
--- NOTE | 2017-08-23 19:09 | Internal Med Progress Note ---
Medical - PN: Subj Patient information: Note initiated : 08/23/17 at 7:06 pm Service Date, if different from initiated Date: [] Patient: Shanda Rhodes a 71 y/o F admitted on 08/22/17 for Weakness/CHF, Renal Failure. Chief Complaint: f/u acute on chronic RF and CHF Interval history: 08/22 Ms. Rhodes is a 71 year old F He presents from home with progressive failure to thrive. Patient has underlying dementia, stage III chronic kidney disease, type 2 diabetes, congestive heart failure. History is obtained speaking to the patient, as well as history obtained from the daughter which was relayed by Dr. carrasco from the ED, as well as reviewing her extensive record. She was in the [facility] skilled facility up until about a week ago after a left fibular fracture, which was treated at [facility]. Since she's returned home, it's unclear if she is taking her medications correctly. Her daughter states many of her blister packs or spread about, she appears to have missed doses, and there is concern she may been using medications from prior medical regimens. Patient currently complains of just not feeling well, of her legs getting worse and becoming painful from her neuropathy, she is also complaining of throbbing in her mid chest. She also states her abdomen is aching at times, she's had intermittent nausea, no emesis , no diarrhea. She's had normal urine output is not felt any dysuria. She's had some headache, no sore throat, no fever. Her glucoses have been low and high, she did not eat last night, she states that she couldn't find food at home. The patient is describing some "throbbing" discomfort in her mid chest which waxes and wanes, it's not associated with dyspnea, magali, does not radiate. It does not appear to be exertional. she denies any cough or sputum production, no pleuritic chest pain. No orthopnea. She is complaining of pain in her feet with some swelling, she attributes the pain to worsening of her neuropathy. In the emergency department, patient's found to be hypoxic with room air saturation in the 80s, requiring 5 L nasal cannula to maintain normoxia. She has evidence of volume overload on exam and on chest radiograph is being admitted for acute congestive heart failure. In addition she has worsening of her baseline chronic kidney disease. 08/23 Initially seen in the midafternoon. At that point her breathing was improved, overall she felt she was feeling somewhat better. Not much response to 40 mg twice daily Lasix. Around dinner, patient was more lethargic, difficult to arouse, requiring facemask to maintain her oxygenation. ABG showed her hypoxic respiratory failure. Chest radiograph from earlier in the day showed increasing right lower lobe consolidation. She did have low-grade fevers today as well. Moved to the ICU, started on BiPAP and antibiotics. - Constitutional Vitals: Vital Signs Temp Pulse Resp BP Pulse Ox 99.4 F H 62 20 135/58 98 08/23/17 15:24 08/23/17 15:24 08/23/17 18:44 08/23/17 15:24 08/23/17 18:44 Period Temp Pulse Resp BP Sys/Courtney Pulse Ox Last 24 Hr 98.1 F-100.8 F 60-66 16-22 122-145/52-90 91-98 Intake and Output 08/23/17 08/23/17 08/23/17 05:59 13:59 21:59 Intake Total 180 / 180 360 / 360 Output Total 650 / 650 340 / 340 160 / 160 Balance -650 / -650 -160 / -160 200 / 200 Weight 148 lb 8 oz Patient Weight 08/24/17 05:59 Weight 148 lb 8 oz Intake & Output: Intake & Output 08/23/17 08/23/17 08/23/17 05:59 13:59 21:59 Intake Total 180 / 180 360 / 360 Output Total 650 / 650 340 / 340 160 / 160 Balance -650 / -650 -160 / -160 200 / 200 Weight 148 lb 8 oz Intake: Oral 180 / 180 360 / 360 Output: Urine Catheter Amount 650 / 650 340 / 340 160 / 160 Other: Meal Breakfast Percent of Meal Consumed 100% Feeding Ability Assist with Tray Set Up Exam: General: Initially sleepy, arouses, carries on conversation. Subsequently more somnolent Chest: Clear, respirations unlabored, no rales Cardiovascular: Regular, JVP is elevated. Trace peripheral edema. Abdomen: Soft, no apparent tenderness Neuro: Alert, oriented to self and situation, subsequently more somnolent, generally weak. Medical - PN: Obj Da - Labs CBC & Chem 7: 08/23/17 03:30 08/23/17 03:30 Labs: Abnormal Lab Results 08/23/17 08/23/17 08/23/17 03:30 03:30 03:30 RBC 2.57 L Hgb 7.9 L Hct 23.7 L RDW 14.6 H Gran % 85.1 H Lymph % (Auto) 6.2 L Gran # 8.1 H Lymph # (Auto) 0.6 L Carbon Dioxide 19 L Anion Gap 18.0 H BUN 119 H* Creatinine 3.5 H Glucose 172 H Hemoglobin A1c Uric Acid 9.3 H Magnesium 2.6 H Iron 22 L TIBC 196 L Transferrin % Sat 11 L GGT 61 H Alkaline Phosphatase 118 H Troponin T NT-Pro-B Natriuret Pep Urine Protein Urine Glucose (UA) Amorphous Crystals 08/22/17 08/22/17 08/22/17 21:58 18:26 17:56 RBC Hgb Hct RDW Gran % Lymph % (Auto) Gran # Lymph # (Auto) Carbon Dioxide Anion Gap BUN Creatinine Glucose Hemoglobin A1c 7.1 H Uric Acid Magnesium Iron TIBC Transferrin % Sat GGT Alkaline Phosphatase Troponin T 0.19 H* 0.17 H* NT-Pro-B Natriuret Pep Urine Protein Urine Glucose (UA) Amorphous Crystals 08/22/17 08/22/17 08/22/17 16:02 10:57 10:12 RBC Hgb Hct RDW Gran % Lymph % (Auto) Gran # Lymph # (Auto) Carbon Dioxide 18 L Anion Gap 20.0 H BUN 119 H* Creatinine 3.6 H Glucose 285 H Hemoglobin A1c Uric Acid Magnesium Iron TIBC Transferrin % Sat GGT Alkaline Phosphatase 128 H Troponin T 0.19 H* NT-Pro-B Natriuret Pep 99783.0 H Urine Protein 100 A Urine Glucose (UA) 50 A Amorphous Crystals Few A 08/22/17 10:12 RBC 2.76 L Hgb 8.6 L Hct 25.1 L RDW Gran % 82.2 H Lymph % (Auto) 8.2 L Gran # 8.5 H Lymph # (Auto) 0.8 L Carbon Dioxide Anion Gap BUN Creatinine Glucose Hemoglobin A1c Uric Acid Magnesium Iron TIBC Transferrin % Sat GGT Alkaline Phosphatase Troponin T NT-Pro-B Natriuret Pep Urine Protein Urine Glucose (UA) Amorphous Crystals Meds: Medications Acetaminophen (Tylenol) 650 mg PO Q6HP PRN PRN Reason: PAIN/FEVER > 101 Last Admin: 08/23/17 15:09 Dose: 650 mg Hydrocodone Bitart/Acetaminophen ([place] 7.5/325mg) 0.5 tab PO Q6HP PRN PRN Reason: Pain Last Admin: 08/23/17 03:47 Dose: 0.5 tab Amlodipine Besylate (Norvasc) 10 mg PO BID [facility] Last Admin: 08/23/17 08:35 Dose: 10 mg Calcium Acetate (Phoslo) 667 mg PO TIDCC [facility] Last Admin: 08/23/17 18:15 Dose: Not Given Carvedilol (Coreg) 25 mg PO BIDCC [facility] Last Admin: 08/23/17 18:15 Dose: Not Given Clonidine HCl (Catapres) 0.1 mg PO TID [facility] Last Admin: 08/23/17 15:01 Dose: 0.1 mg Clopidogrel Bisulfate (Plavix) 75 mg PO DAILY [facility] Last Admin: 08/23/17 08:35 Dose: 75 mg Dextrose (Dextrose 50%) 0 ml IV UD PRN PRN Reason: Hypoglycemia Diagnostic Test (Pha) (Accu-Chek) 1 each FS ACHS [facility] Last Admin: 08/23/17 17:17 Dose: 1 each Docusate Sodium (Colace) 100 mg PO BID [facility] Famotidine (Pepcid) 20 mg PO BID [facility] Last Admin: 08/23/17 08:35 Dose: 20 mg Ferrous Sulfate (Ferrous Sulfate) 325 mg PO BIDCC [facility] Last Admin: 08/23/17 18:15 Dose: Not Given Furosemide (Lasix) 40 mg IV Q8 [facility] Gabapentin (Neurontin) 300 mg PO HS [facility] Last Admin: 08/22/17 20:54 Dose: 300 mg Glucose (Insta-Glucose) 15 gm PO PRN PRN PRN Reason: Hypoglycemia Heparin Sodium (Porcine) (Heparin) 5,000 unit SQ Q12 [facility] Last Admin: 08/23/17 08:34 Dose: 5,000 unit Piperacillin Sod/Tazobactam (Sod 2.25 gm/ Dextrose) 50 mls @ 100 mls/hr IV Q8H [facility] Last Admin: 08/23/17 18:38 Dose: 100 mls/hr Insulin Glargine (Lantus) 15 unit SQ DAILY [facility] Last Admin: 08/23/17 08:30 Dose: 15 unit Insulin Glargine (Lantus) 7 unit SQ HS [facility] Last Admin: 08/22/17 20:53 Dose: 7 unit Insulin Human Lispro (Humalog) 0 unit SQ ACHS [facility] PRN Reason: Protocol Last Admin: 08/23/17 18:14 Dose: Not Given Levetiracetam (Keppra) 500 mg PO BID [facility] Last Admin: 08/23/17 08:34 Dose: 500 mg Levothyroxine Sodium (Synthroid) 112 mcg PO QAMAC [facility] Last Admin: 08/23/17 07:18 Dose: 112 mcg Magnesium Hydroxide (Milk Of Magnesia) 30 ml PO DAILYP PRN PRN Reason: Constipation Last Admin: 08/23/17 15:10 Dose: 30 ml Metoclopramide HCl (Reglan) 5 mg PO BIDAC [facility] Last Admin: 08/23/17 18:15 Dose: Not Given Ondansetron HCl (Zofran) 4 mg IV Q4HP PRN PRN Reason: Nausea And Vomiting Last Admin: 08/23/17 18:06 Dose: 4 mg Sodium Bicarbonate (Sodium Bicarbonate) 1,300 mg PO TID [facility] Last Admin: 08/23/17 15:01 Dose: 1,300 mg Vancomycin HCl (Vancomycin Per Pharmacy) 1 order IV UD [facility] - Impressions Echocardiogram with mildly depressed ejection fraction, EF 53%, mildly dilated left ventricle with left ventricular hypertrophy Carotid Duplex IMPRESSION: --Greater than 70% stenosis of the right external carotid --50-69% stenoses of the internal carotids bilaterally - Imaging and cardiology Chest x-ray Status: image reviewed by me Additional comments: IMPRESSION: Persistent congestive heart failure Increasing consolidation in the right lower lobe. Superimposed pneumonia is suspected. Medical - PN: A/P - Time Spent With Patient Total time spent is greater than 50% in coordination of care (as documented) at patient's floor/unit and/or counseling patient: Greater than 35 minutes (1) Acute exacerbation of CHF (congestive heart failure) Status: Acute Current Visit: Yes (2) Acute renal failure superimposed on stage 3 chronic kidney disease Status: Acute Current Visit: Yes (3) Acute respiratory failure with hypoxia Status: Acute Current Visit: Yes (4) Dementia Status: Chronic Current Visit: Yes (5) Diabetes mellitus type 2 with complications Status: Chronic Current Visit: Yes - Narrative A/P Narrative: 71-year-old female with a history of congestive heart failure, chronic kidney disease, dementia presents with failure to thrive at home, found to have volume overload/congestive heart failure as well as acute hypoxic respiratory failure. Acute on chronic congestive heart failure, may be systolic and diastolic with mildly depressed systolic function EF 55% but also LVH. Initially oxygen requirements decreased, now worsening. Not adequate response to current IV doses of furosemide given her renal function. Troponins are elevated but without change 0.18 range. Suspect part of that is due to decreased renal function and decreased clearance. Plan: Begin BiPAP support, increase furosemide up to furosemide infusion if needed. Acute renal failure and chronic kidney disease stage III. Both BUN and creatinine are elevated. This may represent cardiorenal state due to heart failure. Not adequately responding to 40 mg of Lasix boluses. Plan: Add further furosemide bolus, consider infusion. Monitor creatinine with diuresis. Hemodialysis as a last resort. Acute hypoxic respiratory failure. Initial chest film with volume overload, now with progressive development of right lower lobe infiltrate suspect also pneumonia. Plan: BiPAP, supplemental oxygen as needed, antibiotics, diuresis Pneumonia. Progressive right lower lobe consolidation, low-grade fevers consistent with superimposed pneumonia on top of congestive heart failure. Plan: Vancomycin and Zosyn for healthcare acquired pneumonia. Dementia. Patient appears to have trouble caring for herself at home since her discharge from skilled facility. Plan: Supportive care, social services coordinator consultation. Type 2 diabetes mellitus. Plan: Continue controlled carbohydrate as well as low-sodium diet, continue with her Lantus at 15 units in the morning, 7 units at bedtime, sliding scale insulin, Accu-Cheks. Right carotid bruit. Has significant external carotid as well as 50% range internal carotid stenoses. Plan: Continue with Plavix and statin for now, may need surgical referral. History of cerebrovascular accident. Plan: Continue with Plavix and statin. History of seizure disorder, no current seizure activity. Plan: Continue with Keppra CODE STATUS is discussed with the patient, is DO NOT RESUSCITATE. Prophylaxis: Subcutaneous heparin. Medical - PN: Qual - VTE Deep Vein Thrombosis/Pulmonary Embolism Present on Admission: No
[2017-08-23] MEDS: GABAPENTIN 300 MG CAPSULE PO SCH (20:14)
[2017-08-23] MEDS: DOCUSATE SODIUM 100 MG CAPSULE PO SCH (20:14)
[2017-08-23] MEDS ORDERED: FUROSEMIDE 20 MG/2 ML VIAL IV ONE ×2 (22:04→22:16)
[2017-08-23] MEDS: FUROSEMIDE 40 MG/4 ML VIAL IV SCH (22:08)
[2017-08-24] MEDS: PIPERACILLIN SODIUM/TAZOBACTAM 2.25 GM in DEXTROSE 5% IN WATER 50 ML IV SCH ×4 (02:06→22:13)
[2017-08-24] MEDS: HYDROCODONE/APAP 7.5/325MG TABLET PO PRN ×2 (03:28→20:37)
[2017-08-24 05:07] LABS: Basophils # (Auto) 0 K/mcL (0.0-0.3); Basophils % (Auto) 0.8 % (0.0-2.0); Eosinophils # (Auto) 0.2 K/mcL (0.0-0.7); Eosinophils % (Auto) 3.8 % (0.0-7.0); Granulocytes % (Auto) 69.3 % (38.0-78.0); Lymphocytes # (Auto) 0.7 K/mcL (1.5-4.8); Lymphocytes % (Auto) 14.9 % (15.5-49.0); Mean Cell Volume 93.2 fL (80.0-100.0); Mean Corpuscular HGB Conc 33.3 g/dL (31.0-36.0); Monocytes # (Auto) 0.5 K/mcL (0.1-0.9); Monocytes % (Auto) 11.2 % (1.0-12.0); Platelet Count 194 K/mcL (140-440); RBC 2.48 M/mcL (4.00-5.20); Red Cell Distribution Width 14.3 % (11.5-14.5)
[2017-08-24] MEDS: FUROSEMIDE 40 MG/4 ML VIAL IV SCH (05:38)
[2017-08-24] MEDS: 0.9 % SODIUM CHLORIDE 10 ML SYRINGE IV SCH ×3 (05:40→20:38)
[2017-08-24 05:52] LABS: ALT/SGPT 23 U/l (0-40); Albumin 3.4 gm/dL (3.2-5.2); Albumin/Globulin Ratio 1.4 (1.0-2.3); Alkaline Phosphatase 117 U/L (39-117); Bilirubin,Direct < 0.2 mg/dL (0.0-0.3); Blood Urea Nitrogen 114 mg/dl (8-23); Gamma Glutamyl Transpeptidase 59 U/L (5-36); Uric Acid 9.8 mg/dL (2.5-8.0)
[2017-08-24] MEDS: LEVOTHYROXINE SODIUM 112 MCG TABLET PO SCH (08:21)
[2017-08-24] MEDS: METOCLOPRAMIDE 10 MG TABLET PO SCH ×2 (08:21→18:30)
[2017-08-24] MEDS: HEPARIN 5,000 UNIT/ML VIAL SQ SCH ×2 (09:30→20:36)
[2017-08-24] MEDS: FERROUS SULFATE 325 MG TABLET PO SCH ×2 (09:30→18:30)
[2017-08-24] MEDS: CALCIUM ACETATE 667 MG CAPSULE PO SCH ×3 (09:30→15:44)
[2017-08-24] MEDS: CARVEDILOL 12.5 MG TABLET PO SCH ×2 (09:30→18:30)
[2017-08-24] MEDS: DOCUSATE SODIUM 100 MG CAPSULE PO SCH ×2 (09:30→20:37)
[2017-08-24] MEDS: cloNIDine HCL 0.1 MG TABLET PO SCH ×3 (09:30→20:37)
[2017-08-24] MEDS: FAMOTIDINE 20 MG TABLET PO SCH ×2 (09:31→20:37)
[2017-08-24] MEDS: CLOPIDOGREL 75 MG TABLET PO SCH (09:31)
[2017-08-24] MEDS: amLODIPine 10 MG TABLET PO SCH ×2 (09:31→20:37)
[2017-08-24] MEDS: levETIRAcetam 500 MG TABLET PO SCH ×2 (09:31→20:37)
[2017-08-24] MEDS: SODIUM BICARBONATE 650 MG TABLET PO SCH ×3 (09:31→20:37)
[2017-08-24] MEDS: INSULIN LISPRO 1 UNIT/0.01 ML UNIT SQ SCH ×4 (09:39→20:38)
[2017-08-24] MEDS ORDERED: FUROSEMIDE 100 MG/10 ML VIAL IV ONE (09:47)
[2017-08-24] MEDS: INSULIN GLARGINE, HUMAN 1 UNIT/0.01 ML SQ SCH ×2 (10:06→20:36)
[2017-08-24] MEDS ORDERED: IRON SUCROSE COMPLEX 100 MG/5 ML VIAL IV ONE (14:48)
--- NOTE | 2017-08-24 14:52 | Nephrology Progress Note ---
Subjective Patient information: Note initiated : 08/24/17 at 2:49 pm Service Date, if different from initiated Date: [] Patient: Shanda Rhodes 71 y/o F admitted on 08/22/17 for Weakness/CHF, Renal Failure. Chief Complaint: [] Principal diagnosis: acute on chronic renal failure, pul edema Interval history: Patient seen this am, states feels a little better no overnight events BIpap turned off at around 1.30am, maintaining sat above 92 on 2L oxygen denies SOB, CP no edema non oliguric no other concerns Pertinent ROS: as above Objective - Vital Signs Vital signs: Vital Signs Temp Pulse Pulse Resp BP BP Pulse Ox 08/24/17 11:47 115/30 08/24/17 08:30 60 93 08/24/17 08:00 59 L 99 08/24/17 07:30 59 L 94 08/24/17 07:00 59 L 94 08/24/17 06:30 61 99 08/24/17 06:00 63 94 08/24/17 04:30 59 L 92 08/24/17 04:03 62 135/55 93 08/24/17 04:00 97.8 F 59 L 16 135/55 94 08/24/17 01:30 16 08/24/17 01:14 60 22 98 08/24/17 00:01 98.0 F 59 L 16 124/54 98 08/23/17 22:11 88 14 96 08/23/17 20:08 60 15 98 08/23/17 20:00 98.4 F 60 16 131/64 96 08/23/17 19:03 16 97 08/23/17 18:44 20 98 08/23/17 15:24 99.4 F H 62 18 135/58 93 Intake and Output 08/24/17 08/24/17 08/24/17 05:59 13:59 21:59 Intake Total 50 / 50 50 / 50 Output Total 555 / 555 750 / 750 Balance -505 / -505 -700 / -700 Intake: IV 50 / 50 50 / 50 Zosyn 2.25 gm In Dextrose 5% in 50 / 50 50 / 50 Water 50 ml @ 100 mls/hr IV Q8H [facility] Rx#:[id number] Output: Urine Catheter Amount 555 / 555 750 / 750 Other: # Bowel Movements 0 1 Intake & Output: Intake & Output 08/24/17 08/24/17 08/24/17 05:59 13:59 21:59 Intake Total 50 / 50 50 / 50 Output Total 555 / 555 750 / 750 Balance -505 / -505 -700 / -700 Intake: IV 50 / 50 50 / 50 Zosyn 2.25 gm In Dextrose 5% in 50 / 50 50 / 50 Water 50 ml @ 100 mls/hr IV Q8H [facility] Rx#:[id number] Output: Urine Catheter Amount 555 / 555 750 / 750 Other: # Bowel Movements 0 1 - General Appearance General appearance: appears started age, chronically ill EENT: mucous membranes moist Neck: no JVD Respiratory: clear Cardiology: no rub, no edema, irregular rhythm Gastrointestinal: no tenderness, no guarding Integumentary: no rash, warm and dry Neurologic: alert and oriented x3 Musculoskeletal: no erythema, no cyanosis Psychiatric: mood/affect appropriate - Lab 08/24/17 03:28 08/24/17 03:28 Most recent lab results Calcium 8.5 mg/dl (8.6-10.4) L 08/24/17 03:28 Phosphorus 3.8 mg/dL (2.7-4.5) 08/24/17 03:28 Magnesium 2.8 mg/dL (1.6-2.5) H 08/24/17 03:28 Assessment and Plan (1) Acute on chronic renal failure BUN is upto 114, s.creat is at 3.6-3.5-3.7 renal function fluctuates, worse again ? 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 and HTN with h/o nephrotic range proteinuria non oliguric no K issues, mild acidosis started on bicarb supplement she does have significant anemia from iron deficiency and CKD pneumonia on antibiotics labs discussed with the patient no emergent need for dialysis will change lasix to 80mg bid will start IV iron ct antibiotics for PNA please dose meds per egfr avoid nephrotoxic meds will follow along Status: Acute (2) Anemia Status: Acute (3) CHF (congestive heart failure) Status: Acute
[2017-08-24] MEDS: ONDANSETRON 4 MG/2 ML VIAL IV PRN ×2 (15:44→20:36)
[2017-08-24] MEDS: FUROSEMIDE 100 MG/10 ML VIAL IV SCH (18:42)
[2017-08-24] MEDS: GABAPENTIN 300 MG CAPSULE PO SCH (20:37)
[2017-08-24] MEDS ORDERED: VANCOMYCIN 1,000 MG in 0.9 % SODIUM CHLORIDE 250 ML IV ONE (21:00)
--- NOTE | 2017-08-24 21:27 | Internal Med Progress Note ---
Medical - PN: Subj Patient information: Note initiated : 08/24/17 at 9:25 pm Service Date, if different from initiated Date: [] Patient: Shanda Rhodes a 71 y/o F admitted on 08/22/17 for Weakness/CHF, Renal Failure. Chief Complaint: f/u renal failure, pulmonary edema, pneumonia Interval history: 08/22 Ms. Rhodes is a 71 year old F He presents from home with progressive failure to thrive. Patient has underlying dementia, stage III chronic kidney disease, type 2 diabetes, congestive heart failure. History is obtained speaking to the patient, as well as history obtained from the daughter which was relayed by Dr. carrasco from the ED, as well as reviewing her extensive record. She was in the [facility] skilled facility up until about a week ago after a left fibular fracture, which was treated at [facility]. Since she's returned home, it's unclear if she is taking her medications correctly. Her daughter states many of her blister packs or spread about, she appears to have missed doses, and there is concern she may been using medications from prior medical regimens. Patient currently complains of just not feeling well, of her legs getting worse and becoming painful from her neuropathy, she is also complaining of throbbing in her mid chest. She also states her abdomen is aching at times, she's had intermittent nausea, no emesis , no diarrhea. She's had normal urine output is not felt any dysuria. She's had some headache, no sore throat, no fever. Her glucoses have been low and high, she did not eat last night, she states that she couldn't find food at home. The patient is describing some "throbbing" discomfort in her mid chest which waxes and wanes, it's not associated with dyspnea, magali, does not radiate. It does not appear to be exertional. she denies any cough or sputum production, no pleuritic chest pain. No orthopnea. She is complaining of pain in her feet with some swelling, she attributes the pain to worsening of her neuropathy. In the emergency department, patient's found to be hypoxic with room air saturation in the 80s, requiring 5 L nasal cannula to maintain normoxia. She has evidence of volume overload on exam and on chest radiograph is being admitted for acute congestive heart failure. In addition she has worsening of her baseline chronic kidney disease. 08/23 Initially seen in the midafternoon. At that point her breathing was improved, overall she felt she was feeling somewhat better. Not much response to 40 mg twice daily Lasix. Around dinner, patient was more lethargic, difficult to arouse, requiring facemask to maintain her oxygenation. ABG showed her hypoxic respiratory failure. Chest radiograph from earlier in the day showed increasing right lower lobe consolidation. She did have low-grade fevers today as well. Moved to the ICU, started on BiPAP and antibiotics. 08/24-Seen in the early afternoon. Much more alert than last evening. Tolerated BiPAP overnight, was off of BiPAP all day today. Urine output picking up with higher doses of furosemide. Remains quite weak overall. When and atrial fibrillation in late morning, is rate controlled, spontaneously cardioverted later in the day. - Constitutional Vitals: Vital Signs Temp Pulse Resp BP Pulse Ox 98.0 F 111 H 18 129/64 93 08/24/17 20:01 08/24/17 12:01 08/24/17 20:01 08/24/17 20:01 08/24/17 20:01 Period Temp Pulse Resp BP Sys/Courtney Pulse Ox Last 24 Hr 97.8 F-98.0 F 59-111 14-22 92-135/30-64 92-99 Intake and Output 08/24/17 08/24/17 08/24/17 05:59 13:59 21:59 Intake Total 50 / 50 50 / 50 50 / 50 Output Total 555 / 555 750 / 750 Balance -505 / -505 -700 / -700 50 / 50 Weight 148 lb 8 oz Patient Weight 08/25/17 05:59 Weight 148 lb 8 oz Intake & Output: Intake & Output 08/24/17 08/24/17 08/24/17 05:59 13:59 21:59 Intake Total 50 / 50 50 / 50 50 / 50 Output Total 555 / 555 750 / 750 Balance -505 / -505 -700 / -700 50 / 50 Weight 148 lb 8 oz Intake: IV 50 / 50 50 / 50 50 / 50 Zosyn 2.25 gm In Dextrose 5% in 50 / 50 50 / 50 50 / 50 Water 50 ml @ 100 mls/hr IV Q8H [facility] Rx#:[id number] Output: Urine Catheter Amount 555 / 555 750 / 750 Other: # Bowel Movements 0 1 Exam: General: Sleeping, arouses, pleasant Chest: Few basilar rales, otherwise clear Cardiovascular: Irregularly irregular time of my exam. /6 systolic murmur present. Trace peripheral edema. Abdomen: Soft, nontender Neuro: Alert, oriented to self, generally weak Medical - PN: Obj Da - Labs CBC & Chem 7: 08/24/17 03:28 08/24/17 03:28 Labs: Abnormal Lab Results 08/24/17 08/24/17 08/24/17 03:28 03:28 03:28 RBC 2.48 L Hgb 7.7 L Hct 23.1 L RDW Gran % Lymph % (Auto) 14.9 L Gran # Lymph # (Auto) 0.7 L Carbon Dioxide Anion Gap BUN 114 H* Creatinine 3.7 H Glucose 35 L* Hemoglobin A1c Uric Acid 9.8 H Calcium 8.5 L Magnesium 2.8 H Iron TIBC Transferrin % Sat GGT 59 H Alkaline Phosphatase Troponin T NT-Pro-B Natriuret Pep Total Protein 5.8 L Vitamin B12 1610 H Urine Protein Urine Glucose (UA) Amorphous Crystals 08/23/17 08/23/17 08/23/17 03:30 03:30 03:30 RBC 2.57 L Hgb 7.9 L Hct 23.7 L RDW 14.6 H Gran % 85.1 H Lymph % (Auto) 6.2 L Gran # 8.1 H Lymph # (Auto) 0.6 L Carbon Dioxide 19 L Anion Gap 18.0 H BUN 119 H* Creatinine 3.5 H Glucose 172 H Hemoglobin A1c Uric Acid 9.3 H Calcium Magnesium 2.6 H Iron 22 L TIBC 196 L Transferrin % Sat 11 L GGT 61 H Alkaline Phosphatase 118 H Troponin T NT-Pro-B Natriuret Pep Total Protein Vitamin B12 Urine Protein Urine Glucose (UA) Amorphous Crystals 08/22/17 08/22/17 08/22/17 21:58 18:26 17:56 RBC Hgb Hct RDW Gran % Lymph % (Auto) Gran # Lymph # (Auto) Carbon Dioxide Anion Gap BUN Creatinine Glucose Hemoglobin A1c 7.1 H Uric Acid Calcium Magnesium Iron TIBC Transferrin % Sat GGT Alkaline Phosphatase Troponin T 0.19 H* 0.17 H* NT-Pro-B Natriuret Pep Total Protein Vitamin B12 Urine Protein Urine Glucose (UA) Amorphous Crystals 08/22/17 08/22/17 08/22/17 16:02 10:57 10:12 RBC Hgb Hct RDW Gran % Lymph % (Auto) Gran # Lymph # (Auto) Carbon Dioxide 18 L Anion Gap 20.0 H BUN 119 H* Creatinine 3.6 H Glucose 285 H Hemoglobin A1c Uric Acid Calcium Magnesium Iron TIBC Transferrin % Sat GGT Alkaline Phosphatase 128 H Troponin T 0.19 H* NT-Pro-B Natriuret Pep 19907.0 H Total Protein Vitamin B12 Urine Protein 100 A Urine Glucose (UA) 50 A Amorphous Crystals Few A 08/22/17 10:12 RBC 2.76 L Hgb 8.6 L Hct 25.1 L RDW Gran % 82.2 H Lymph % (Auto) 8.2 L Gran # 8.5 H Lymph # (Auto) 0.8 L Carbon Dioxide Anion Gap BUN Creatinine Glucose Hemoglobin A1c Uric Acid Calcium Magnesium Iron TIBC Transferrin % Sat GGT Alkaline Phosphatase Troponin T NT-Pro-B Natriuret Pep Total Protein Vitamin B12 Urine Protein Urine Glucose (UA) Amorphous Crystals Meds: Medications Acetaminophen (Tylenol) 650 mg PO Q6HP PRN PRN Reason: PAIN/FEVER > 101 Last Admin: 08/23/17 15:09 Dose: 650 mg Hydrocodone Bitart/Acetaminophen ([place] 7.5/325mg) 0.5 tab PO Q6HP PRN PRN Reason: Pain Last Admin: 08/24/17 20:37 Dose: 0.5 tab Amlodipine Besylate (Norvasc) 10 mg PO BID [facility] Last Admin: 08/24/17 20:37 Dose: 10 mg Calcium Acetate (Phoslo) 667 mg PO TIDCC [facility] Last Admin: 08/24/17 15:44 Dose: 667 mg Carvedilol (Coreg) 25 mg PO BIDCC [facility] Last Admin: 08/24/17 18:30 Dose: 25 mg Clonidine HCl (Catapres) 0.1 mg PO TID [facility] Last Admin: 08/24/17 20:37 Dose: 0.1 mg Clopidogrel Bisulfate (Plavix) 75 mg PO DAILY [facility] Last Admin: 08/24/17 09:31 Dose: 75 mg Dextrose (Dextrose 50%) 0 ml IV UD PRN PRN Reason: Hypoglycemia Diagnostic Test (Pha) (Accu-Chek) 1 each FS ACHS [facility] Last Admin: 08/24/17 20:36 Dose: 1 each Docusate Sodium (Colace) 100 mg PO BID [facility] Last Admin: 08/24/17 20:37 Dose: 100 mg Famotidine (Pepcid) 20 mg PO BID [facility] Last Admin: 08/24/17 20:37 Dose: 20 mg Ferrous Sulfate (Ferrous Sulfate) 325 mg PO BIDCC [facility] Last Admin: 08/24/17 18:30 Dose: 325 mg Furosemide (Lasix) 80 mg IV BIDD [facility] Last Admin: 08/24/17 18:42 Dose: 80 mg Gabapentin (Neurontin) 300 mg PO HS [facility] Last Admin: 08/24/17 20:37 Dose: 300 mg Glucose (Insta-Glucose) 15 gm PO PRN PRN PRN Reason: Hypoglycemia Heparin Sodium (Porcine) (Heparin) 5,000 unit SQ Q12 [facility] Last Admin: 08/24/17 20:36 Dose: 5,000 unit Piperacillin Sod/Tazobactam (Sod 2.25 gm/ Dextrose) 50 mls @ 100 mls/hr IV Q8H [facility] Last Infusion: 08/24/17 20:39 Dose: Infused Vancomycin HCl 1,000 mg/ (Sodium Chloride) 250 mls @ 250 mls/hr IV ONCE ONE Stop: 08/24/17 21:59 Last Admin: 08/24/17 21:24 Dose: 250 mls/hr Insulin Glargine (Lantus) 15 unit SQ DAILY [facility] Last Admin: 08/24/17 10:06 Dose: 15 unit Insulin Glargine (Lantus) 7 unit SQ HS [facility] Last Admin: 08/24/17 20:36 Dose: 7 unit Insulin Human Lispro (Humalog) 0 unit SQ [facility] PRN Reason: Protocol Last Admin: 08/24/17 20:38 Dose: Not Given Levetiracetam (Keppra) 500 mg PO BID [facility] Last Admin: 08/24/17 20:37 Dose: 500 mg Levothyroxine Sodium (Synthroid) 112 mcg PO QAMAC [facility] Last Admin: 08/24/17 08:21 Dose: 112 mcg Magnesium Hydroxide (Milk Of Magnesia) 30 ml PO DAILYP PRN PRN Reason: Constipation Last Admin: 08/23/17 15:10 Dose: 30 ml Metoclopramide HCl (Reglan) 5 mg PO BIDAC [facility] Last Admin: 08/24/17 18:30 Dose: 5 mg Ondansetron HCl (Zofran) 4 mg IV Q4HP PRN PRN Reason: Nausea And Vomiting Last Admin: 08/24/17 20:36 Dose: 4 mg Sodium Bicarbonate (Sodium Bicarbonate) 1,300 mg PO TID [facility] Last Admin: 08/24/17 20:37 Dose: 1,300 mg Sodium Chloride (Saline Flush) 10 ml IV Q8 [facility] Last Admin: 08/24/17 20:38 Dose: 10 ml Vancomycin HCl (Vancomycin Per Pharmacy) 1 order IV UD [facility] Medical - PN: A/P - Time Spent With Patient Total time spent is greater than 50% in coordination of care (as documented) at patient's floor/unit and/or counseling patient: Greater than 35 minutes (1) Acute exacerbation of CHF (congestive heart failure) Status: Acute Current Visit: Yes (2) Acute renal failure superimposed on stage 3 chronic kidney disease Status: Acute Current Visit: Yes (3) Acute respiratory failure with hypoxia Status: Acute Current Visit: Yes (4) Dementia Status: Chronic Current Visit: Yes (5) Diabetes mellitus type 2 with complications Status: Chronic Current Visit: Yes - Narrative A/P Narrative: 71-year-old female with a history of congestive heart failure, chronic kidney disease, dementia presents with failure to thrive at home, found to have volume overload/congestive heart failure as well as acute hypoxic respiratory failure. Acute on chronic congestive heart failure, may be systolic and diastolic with mildly depressed systolic function EF 55% but also LVH. Improved today after worsening . Now responding to increased dose of IV furosemide. Troponins were elevated but without change 0.18 range. Suspect part of that is due to decreased renal function and decreased clearance. Plan: Continue furosemide. Acute renal failure and chronic kidney disease stage III. Both BUN and creatinine are elevated. This may represent cardiorenal state due to heart failure. Plan: Continue furosemide boluses. Monitor creatinine with diuresis. Hemodialysis as a last resort. Atrial fibrillation. New problem with onset on . Subsequently cardioverted to sinus rhythm or a truly paced rhythm. Plan: Continue to monitor on telemetry, optimize electrolytes as needed. Acute hypoxic respiratory failure. Improved after BiPAP. Initial chest film with volume overload, subsequently with progressive development of right lower lobe infiltrate suspect also pneumonia. Plan: Supplemental oxygen as needed, antibiotics, diuresis, BiPAP prn Pneumonia. Progressive right lower lobe consolidation, low-grade fevers consistent with superimposed pneumonia on top of congestive heart failure. Plan: Continue vancomycin and Zosyn for healthcare acquired pneumonia. Dementia. Patient appears to have trouble caring for herself at home since her discharge from skilled facility. Plan: Supportive care, social service liaison consultation. Type 2 diabetes mellitus. Plan: Continue controlled carbohydrate as well as low-sodium diet, continue with her Lantus at 15 units in the morning, 7 units at bedtime, sliding scale insulin, Accu-Cheks. Right carotid bruit. Has significant external carotid as well as 50% range internal carotid stenoses. Plan: Continue with Plavix and statin for now, may need surgical referral. History of cerebrovascular accident. Plan: Continue with Plavix and statin. History of seizure disorder, no current seizure activity. Plan: Continue with Keppra CODE STATUS is discussed with the patient, is DO NOT RESUSCITATE. Prophylaxis: Subcutaneous heparin. Medical - PN: Qual - VTE Deep Vein Thrombosis/Pulmonary Embolism Present on Admission: No
[2017-08-25] MEDS: HYDROCODONE/APAP 7.5/325MG TABLET PO PRN (00:42)
[2017-08-25] MEDS: PIPERACILLIN SODIUM/TAZOBACTAM 2.25 GM in DEXTROSE 5% IN WATER 50 ML IV SCH ×3 (05:36→22:00)
[2017-08-25] MEDS: 0.9 % SODIUM CHLORIDE 10 ML SYRINGE IV SCH ×3 (05:37→21:28)
[2017-08-25 05:41] LABS: Basophils # (Auto) 0 K/mcL (0.0-0.3); Basophils % (Auto) 0.8 % (0.0-2.0); Eosinophils # (Auto) 0.3 K/mcL (0.0-0.7); Eosinophils % (Auto) 5.1 % (0.0-7.0); Granulocytes % (Auto) 75.6 % (38.0-78.0); Lymphocytes # (Auto) 0.5 K/mcL (1.5-4.8); Lymphocytes % (Auto) 10.5 % (15.5-49.0); Mean Cell Volume 92.2 fL (80.0-100.0); Mean Corpuscular HGB Conc 33.8 g/dL (31.0-36.0); Mean Corpuscular Hemoglobin 31.2 pg (26.0-34.0); Monocytes # (Auto) 0.4 K/mcL (0.1-0.9); Platelet Count 213 K/mcL (140-440); RBC 2.48 M/mcL (4.00-5.20); Red Cell Distribution Width 14.3 % (11.5-14.5)
[2017-08-25 06:11] LABS: ALT/SGPT 25 U/l (0-40); Albumin 3.2 gm/dL (3.2-5.2); Alkaline Phosphatase 124 U/L (39-117); Bilirubin,Direct < 0.2 mg/dL (0.0-0.3); Blood Urea Nitrogen 108 mg/dl (8-23); Gamma Glutamyl Transpeptidase 66 U/L (5-36); Uric Acid 9.5 mg/dL (2.5-8.0)
[2017-08-25] MEDS: LEVOTHYROXINE SODIUM 112 MCG TABLET PO SCH (08:01)
[2017-08-25] MEDS: METOCLOPRAMIDE 10 MG TABLET PO SCH ×2 (08:01→17:42)
[2017-08-25] MEDS: FUROSEMIDE 100 MG/10 ML VIAL IV SCH ×2 (08:30→15:42)
[2017-08-25] MEDS ORDERED: IRON SUCROSE COMPLEX 100 MG/5 ML VIAL IV ONE (08:30)
[2017-08-25] MEDS: amLODIPine 10 MG TABLET PO SCH ×2 (08:42→21:07)
[2017-08-25] MEDS: cloNIDine HCL 0.1 MG TABLET PO SCH ×3 (08:42→21:07)
[2017-08-25] MEDS: CARVEDILOL 12.5 MG TABLET PO SCH ×2 (08:42→17:42)
[2017-08-25] MEDS: CALCIUM ACETATE 667 MG CAPSULE PO SCH ×3 (08:42→17:42)
[2017-08-25] MEDS: SODIUM BICARBONATE 650 MG TABLET PO SCH ×3 (08:42→21:15)
[2017-08-25] MEDS: FERROUS SULFATE 325 MG TABLET PO SCH ×2 (08:42→17:42)
[2017-08-25] MEDS: INSULIN GLARGINE, HUMAN 1 UNIT/0.01 ML SQ SCH ×2 (08:42→21:06)
[2017-08-25] MEDS: CLOPIDOGREL 75 MG TABLET PO SCH (08:42)
[2017-08-25] MEDS: DOCUSATE SODIUM 100 MG CAPSULE PO SCH ×2 (08:42→21:07)
[2017-08-25] MEDS: FAMOTIDINE 20 MG TABLET PO SCH ×2 (08:42→21:07)
[2017-08-25] MEDS: levETIRAcetam 500 MG TABLET PO SCH ×2 (08:42→21:15)
[2017-08-25] MEDS: INSULIN LISPRO 1 UNIT/0.01 ML UNIT SQ SCH ×4 (08:43→21:20)
[2017-08-25] MEDS: HEPARIN 5,000 UNIT/ML VIAL SQ SCH ×2 (08:43→21:07)
--- NOTE | 2017-08-25 09:41 | XRay Report ---
HISTORY: Reason for Exam:follow up pulmonary edema FINDINGS: Patient still has congestive heart failure with pulmonary edema. The dense consolidation of the right lower lobe and the pulmonary vascular congestion have improved since 08/23/17. There are small bilateral pleural effusions. The heart has diminished in size and is now within normal limits. IMPRESSION: Improving congestive heart failure Interpreted and Authenticated by: Juan Viera 08/25/17
--- NOTE | 2017-08-25 10:38 | Internal Med Progress Note ---
Medical - PN: Subj Patient information: Note initiated : 08/25/17 at 10:36 am Service Date, if different from initiated Date: [] Patient: Shanda Rhodes a 71 y/o F admitted on 08/22/17 for Weakness/CHF, Renal Failure. Chief Complaint: follow-up congestive heart failure, pneumonia Interval history: 08/22 Ms. Rhodes is a 71 year old F He presents from home with progressive failure to thrive. Patient has underlying dementia, stage III chronic kidney disease, type 2 diabetes, congestive heart failure. History is obtained speaking to the patient, as well as history obtained from the daughter which was relayed by Dr. carrasco from the ED, as well as reviewing her extensive record. She was in the [facility] skilled facility up until about a week ago after a left fibular fracture, which was treated at [facility]. Since she's returned home, it's unclear if she is taking her medications correctly. Her daughter states many of her blister packs or spread about, she appears to have missed doses, and there is concern she may been using medications from prior medical regimens. Patient currently complains of just not feeling well, of her legs getting worse and becoming painful from her neuropathy, she is also complaining of throbbing in her mid chest. She also states her abdomen is aching at times, she's had intermittent nausea, no emesis , no diarrhea. She's had normal urine output is not felt any dysuria. She's had some headache, no sore throat, no fever. Her glucoses have been low and high, she did not eat last night, she states that she couldn't find food at home. The patient is describing some "throbbing" discomfort in her mid chest which waxes and wanes, it's not associated with dyspnea, magali, does not radiate. It does not appear to be exertional. she denies any cough or sputum production, no pleuritic chest pain. No orthopnea. She is complaining of pain in her feet with some swelling, she attributes the pain to worsening of her neuropathy. In the emergency department, patient's found to be hypoxic with room air saturation in the 80s, requiring 5 L nasal cannula to maintain normoxia. She has evidence of volume overload on exam and on chest radiograph is being admitted for acute congestive heart failure. In addition she has worsening of her baseline chronic kidney disease. 08/23 Initially seen in the midafternoon. At that point her breathing was improved, overall she felt she was feeling somewhat better. Not much response to 40 mg twice daily Lasix. Around dinner, patient was more lethargic, difficult to arouse, requiring facemask to maintain her oxygenation. ABG showed her hypoxic respiratory failure. Chest radiograph from earlier in the day showed increasing right lower lobe consolidation. She did have low-grade fevers today as well. Moved to the ICU, started on BiPAP and antibiotics. 2/2-Seen in the early afternoon. Much more alert than last evening. Tolerated BiPAP overnight, was off of BiPAP all day today. Urine output picking up with higher doses of furosemide. Remains quite weak overall. When and atrial fibrillation in late morning, is rate controlled, spontaneously cardioverted later in the day. /3-continues to feel improved. Sitting up eating breakfast. Dyspnea is improved. No chest pain, no cough or sputum production. Appetite is improved. Remains in normal sinus rhythm/atrial paced rhythm - Constitutional Vitals: Vital Signs Temp Pulse Resp BP Pulse Ox 98.3 F 111 H 16 135/53 92 08/25/17 07:55 08/24/17 12:01 08/25/17 07:55 08/25/17 07:55 08/25/17 07:55 Period Temp Pulse Resp BP Sys/Cuortney Pulse Ox Last 24 Hr 98.0 F-98.3 F 79-111 16-18 92-142/30-64 92-97 Intake and Output 08/24/17 08/25/17 08/25/17 21:59 05:59 13:59 Intake Total 50 / 50 410 / 410 600 / 600 Output Total 1250 / 1250 Balance 50 / 50 -840 / -840 600 / 600 Weight 148 lb 8 oz Intake & Output: Intake & Output 08/24/17 08/25/17 08/25/17 21:59 05:59 13:59 Intake Total 50 / 50 410 / 410 600 / 600 Output Total 1250 / 1250 Balance 50 / 50 -840 / -840 600 / 600 Weight 148 lb 8 oz Intake: IV 50 / 50 50 / 50 300 / 300 Zosyn 2.25 gm In Dextrose 5% in 50 / 50 50 / 50 50 / 50 Water 50 ml @ 100 mls/hr IV Q8H [facility] Rx#:[id number] Oral 360 / 360 300 / 300 Output: Urine Catheter Amount 1250 / 1250 Other: Meal Breakfast Percent of Meal Consumed 75% Feeding Ability Independent Exam: General: Sitting up, eating breakfast, no acute distress Chest: Faint left lower lobe rales, otherwise clear, respirations unlabored Cardiovascular: Regular rate and rhythm. 1/6 systolic murmur. Trace lower extremity edema Abdomen: Soft, nontender Neuro: Alert, oriented to self,the hospital being treated for pneumonia and heart failure. Generally weak. Medical - PN: Obj Da - Labs CBC & Chem 7: 08/25/17 03:33 08/25/17 03:33 Labs: Abnormal Lab Results 08/25/17 08/25/17 08/24/17 03:33 03:33 03:28 RBC 2.48 L Hgb 7.7 L Hct 22.9 L RDW Gran % Lymph % (Auto) 10.5 L Gran # Lymph # (Auto) 0.5 L Carbon Dioxide Anion Gap BUN 108 H* Creatinine 3.6 H Glucose 200 H Hemoglobin A1c Uric Acid 9.5 H Calcium 8.3 L Magnesium 2.8 H Iron TIBC Transferrin % Sat GGT 66 H Alkaline Phosphatase 124 H Troponin T NT-Pro-B Natriuret Pep Total Protein Vitamin B12 1610 H Urine Protein Urine Glucose (UA) Amorphous Crystals 08/24/17 08/24/17 08/23/17 03:28 03:28 03:30 RBC 2.48 L Hgb 7.7 L Hct 23.1 L RDW Gran % Lymph % (Auto) 14.9 L Gran # Lymph # (Auto) 0.7 L Carbon Dioxide Anion Gap BUN 114 H* Creatinine 3.7 H Glucose 35 L* Hemoglobin A1c Uric Acid 9.8 H Calcium 8.5 L Magnesium 2.8 H Iron 22 L TIBC 196 L Transferrin % Sat 11 L GGT 59 H Alkaline Phosphatase Troponin T NT-Pro-B Natriuret Pep Total Protein 5.8 L Vitamin B12 Urine Protein Urine Glucose (UA) Amorphous Crystals 08/23/17 08/23/17 08/22/17 03:30 03:30 21:58 RBC 2.57 L Hgb 7.9 L Hct 23.7 L RDW 14.6 H Gran % 85.1 H Lymph % (Auto) 6.2 L Gran # 8.1 H Lymph # (Auto) 0.6 L Carbon Dioxide 19 L Anion Gap 18.0 H BUN 119 H* Creatinine 3.5 H Glucose 172 H Hemoglobin A1c Uric Acid 9.3 H Calcium Magnesium 2.6 H Iron TIBC Transferrin % Sat GGT 61 H Alkaline Phosphatase 118 H Troponin T 0.19 H* NT-Pro-B Natriuret Pep Total Protein Vitamin B12 Urine Protein Urine Glucose (UA) Amorphous Crystals 08/22/17 08/22/17 08/22/17 18:26 17:56 16:02 RBC Hgb Hct RDW Gran % Lymph % (Auto) Gran # Lymph # (Auto) Carbon Dioxide Anion Gap BUN Creatinine Glucose Hemoglobin A1c 7.1 H Uric Acid Calcium Magnesium Iron TIBC Transferrin % Sat GGT Alkaline Phosphatase Troponin T 0.17 H* 0.19 H* NT-Pro-B Natriuret Pep Total Protein Vitamin B12 Urine Protein Urine Glucose (UA) Amorphous Crystals 08/22/17 08/22/17 08/22/17 10:57 10:12 10:12 RBC 2.76 L Hgb 8.6 L Hct 25.1 L RDW Gran % 82.2 H Lymph % (Auto) 8.2 L Gran # 8.5 H Lymph # (Auto) 0.8 L Carbon Dioxide 18 L Anion Gap 20.0 H BUN 119 H* Creatinine 3.6 H Glucose 285 H Hemoglobin A1c Uric Acid Calcium Magnesium Iron TIBC Transferrin % Sat GGT Alkaline Phosphatase 128 H Troponin T NT-Pro-B Natriuret Pep 98595.0 H Total Protein Vitamin B12 Urine Protein 100 A Urine Glucose (UA) 50 A Amorphous Crystals Few A Meds: Medications Acetaminophen (Tylenol) 650 mg PO Q6HP PRN PRN Reason: PAIN/FEVER > 101 Last Admin: 08/23/17 15:09 Dose: 650 mg Hydrocodone Bitart/Acetaminophen ([place] 7.5/325mg) 0.5 tab PO Q6HP PRN PRN Reason: Pain Last Admin: 08/25/17 00:42 Dose: 0.5 tab Amlodipine Besylate (Norvasc) 10 mg PO BID [facility] Last Admin: 08/25/17 08:42 Dose: 10 mg Calcium Acetate (Phoslo) 667 mg PO TIDCC [facility] Last Admin: 08/25/17 08:42 Dose: 667 mg [facility] Last Admin: 08/25/17 08:42 Dose: 25 mg Clonidine HCl (Catapres) 0.1 mg PO TID [facility] Last Admin: 08/25/17 08:42 Dose: 0.1 mg Clopidogrel Bisulfate (Plavix) 75 mg PO DAILY [facility] Last Admin: 08/25/17 08:42 Dose: 75 mg Dextrose (Dextrose 50%) 0 ml IV UD PRN PRN Reason: Hypoglycemia Diagnostic Test (Pha) (Accu-Chek) 1 each FS ACHS [facility] Last Admin: 08/25/17 07:59 Dose: 1 each Docusate Sodium (Colace) 100 mg PO BID [facility] Last Admin: 08/25/17 08:42 Dose: 100 mg Famotidine (Pepcid) 20 mg PO BID [facility] Last Admin: 08/25/17 08:42 Dose: 20 mg Ferrous Sulfate (Ferrous Sulfate) 325 mg PO BIDCC [facility] Last Admin: 08/25/17 08:42 Dose: 325 mg Furosemide (Lasix) 80 mg IV BIDD [facility] Last Admin: 08/24/17 18:42 Dose: 80 mg Gabapentin (Neurontin) 300 mg PO HS [facility] Last Admin: 08/24/17 20:37 Dose: 300 mg Glucose (Insta-Glucose) 15 gm PO PRN PRN PRN Reason: Hypoglycemia Heparin Sodium (Porcine) (Heparin) 5,000 unit SQ Q12 [facility] Last Admin: 08/25/17 08:43 Dose: 5,000 unit Piperacillin Sod/Tazobactam (Sod 2.25 gm/ Dextrose) 50 mls @ 100 mls/hr IV Q8H [facility] Last Infusion: 08/25/17 06:01 Dose: Infused Insulin Glargine (Lantus) 15 unit SQ DAILY [facility] Last Admin: 08/25/17 08:42 Dose: 15 unit Insulin Glargine (Lantus) 7 unit SQ HS [facility] Last Admin: 08/24/17 20:36 Dose: 7 unit Insulin Human Lispro (Humalog) [address] [facility] PRN Reason: Protocol Last Admin: 08/25/17 08:43 Dose: 4 unit Levetiracetam (Keppra) 500 mg PO BID [facility] Last Admin: 08/25/17 08:42 Dose: 500 mg Levothyroxine Sodium (Synthroid) 112 mcg PO QAMAC [facility] Last Admin: 08/25/17 08:01 Dose: 112 mcg Magnesium Hydroxide (Milk Of Magnesia) 30 ml PO DAILYP PRN PRN Reason: Constipation Last Admin: 08/23/17 15:10 Dose: 30 ml Metoclopramide HCl (Reglan) 5 mg PO BIDAC [facility] Last Admin: 08/25/17 08:01 Dose: 5 mg Ondansetron HCl (Zofran) 4 mg IV Q4HP PRN PRN Reason: Nausea And Vomiting Last Admin: 08/24/17 20:36 Dose: 4 mg Sodium Bicarbonate (Sodium Bicarbonate) 1,300 mg PO TID [facility] Last Admin: 08/25/17 08:42 Dose: 1,300 mg Sodium Chloride (Saline Flush) 10 ml IV Q8 [facility] Last Admin: 08/25/17 05:37 Dose: 10 ml Vancomycin HCl (Vancomycin Per Pharmacy) 1 order IV UD [facility] Medical - PN: A/P (1) Acute exacerbation of CHF (congestive heart failure) Status: Acute Current Visit: Yes (2) Acute renal failure superimposed on stage 3 chronic kidney disease Status: Acute Current Visit: Yes (3) Acute respiratory failure with hypoxia Status: Acute Current Visit: Yes (4) Dementia Status: Chronic Current Visit: Yes (5) Diabetes mellitus type 2 with complications Status: Chronic Current Visit: Yes - Narrative A/P Narrative: 71-year-old female with a history of congestive heart failure, chronic kidney disease, dementia presents with failure to thrive at home, found to have volume overload/congestive heart failure as well as acute hypoxic respiratory failure. Acute on chronic congestive heart failure, may be systolic and diastolic with mildly depressed systolic function EF 55% but also LVH. Continues to improve. About 1500 ml diuresis yesterday. Troponins were elevated but without change 0.18 range, suspect part of that is due to decreased renal function and decreased clearance. Plan: Continue furosemide, follow I/O Acute renal failure and chronic kidney disease stage III. Both BUN and creatinine are elevated. This may represent cardiorenal state due to heart failure. BUN continues to improve, though still 104. Cr a bit better. Plan: Continue diuresis, trend creatinine. Hemodialysis as a last resort. Atrial fibrillation, paroxysmal. New problem with onset on . Remains resolved. Currently atrially paced rhythm. Plan: Continue to monitor on telemetry, optimize electrolytes as needed. Acute hypoxic respiratory failure. Status-post BiPAP tx. Initial chest film with volume overload, subsequently with progressive development of right lower lobe infiltrate suspect also pneumonia. Plan: Supplemental oxygen as needed, antibiotics, diuresis, BiPAP prn Pneumonia. Progressive right lower lobe consolidation, low-grade fevers consistent with superimposed pneumonia on top of congestive heart failure. Improving. Plan: Continue vancomycin and Zosyn for healthcare acquired pneumonia. Dementia. Patient appears to have trouble caring for herself at home since her discharge from skilled facility. Plan: Supportive care, outreach and education social worker consultation. Type 2 diabetes mellitus. Plan: Continue controlled carbohydrate as well as low-sodium diet, continue with her Lantus at 15 units in the morning, 7 units at bedtime, sliding scale insulin, Accu-Cheks. Right carotid bruit. Has significant external carotid as well as 50% range internal carotid stenoses. Plan: Continue with Plavix and statin for now, may need surgical referral. History of cerebrovascular accident. Plan: Continue with Plavix and statin. History of seizure disorder, no current seizure activity. Plan: Continue with Keppra CODE STATUS is discussed with the patient, is DO NOT RESUSCITATE. Prophylaxis: Subcutaneous heparin. Medical - PN: Qual - VTE Deep Vein Thrombosis/Pulmonary Embolism Present on Admission: No
--- NOTE | 2017-08-25 12:23 | Nephrology Progress Note ---
Subjective Patient information: Note initiated : 08/25/17 at 12:20 pm Service Date, if different from initiated Date: [] Patient: Shanda Rhodes 71 y/o F admitted on 08/22/17 for Weakness/CHF, Renal Failure. Chief Complaint: [] Principal diagnosis: acute on chronic renal failure, pul edema Interval history: Patient seen today no SOB, CP, still on 2L of oxygen no edema feels better no nausea, vomiting, had one episode this am no loss of appetite Pertinent ROS: as above Objective - Vital Signs Vital signs: Vital Signs Temp Resp BP Pulse Ox 08/25/17 07:55 98.3 F 16 135/53 92 08/25/17 04:01 140/58 08/25/17 00:01 98.0 F 142/56 96 08/24/17 20:01 98.0 F 18 129/64 93 08/24/17 16:01 132/55 Intake and Output 08/24/17 08/25/17 08/25/17 21:59 05:59 13:59 Intake Total 50 / 50 410 / 410 600 / 600 Output Total 1250 / 1250 Balance 50 / 50 -840 / -840 600 / 600 Intake: IV 50 / 50 50 / 50 300 / 300 Zosyn 2.25 gm In Dextrose 5% in 50 / 50 50 / 50 50 / 50 Water 50 ml @ 100 mls/hr IV Q8H [facility] Rx#:[id number] Oral 360 / 360 300 / 300 Output: Urine Catheter Amount 1250 / 1250 Other: Meal Breakfast Percent of Meal Consumed 75% Feeding Ability Independent Weight 148 lb 8 oz Intake & Output: Intake & Output 08/24/17 08/25/17 08/25/17 21:59 05:59 13:59 Intake Total 50 / 50 410 / 410 600 / 600 Output Total 1250 / 1250 Balance 50 / 50 -840 / -840 600 / 600 Weight 148 lb 8 oz Intake: IV 50 / 50 50 / 50 300 / 300 Zosyn 2.25 gm In Dextrose 5% in 50 / 50 50 / 50 50 / 50 Water 50 ml @ 100 mls/hr IV Q8H [facility] Rx#:[id number] Oral 360 / 360 300 / 300 Output: Urine Catheter Amount 1250 / 1250 Other: Meal Breakfast Percent of Meal Consumed 75% Feeding Ability Independent - General Appearance General appearance: appears started age, chronically ill EENT: mucous membranes moist Neck: no JVD Respiratory: clear Cardiology: no rub, no edema, irregular rhythm Gastrointestinal: no tenderness, no guarding Integumentary: no rash, warm and dry Neurologic: alert and oriented x3 Musculoskeletal: no erythema Psychiatric: mood/affect appropriate - Lab 08/25/17 03:33 08/25/17 03:33 Most recent lab results Calcium 8.3 mg/dl (8.6-10.4) L 08/25/17 03:33 Phosphorus 4.1 mg/dL (2.7-4.5) 08/25/17 03:33 Magnesium 2.8 mg/dL (1.6-2.5) H 08/25/17 03:33 Assessment and Plan (1) Acute on chronic renal failure BUN is down 104, s.creat is at 3.6-3.5-3.7-3.6, stable renal function fluctuates, worse again ? 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 and HTN with h/o nephrotic range proteinuria non oliguric no K issues, mild acidosis started on bicarb supplement she does have significant anemia from iron deficiency and CKD pneumonia on antibiotics renal function remains unchanged, BUN though slowly trending down Pul edema better but still persistent 1-1.5L net negative everyday on lasix 80mg IV bid no emergent need for BOAT HAND but if patient has no meaningful improvement in renal function may need to initiate mainly given poor response of IV diuretics will continue with IV venofer loading dose, once she gets 1000mg will initiate aranesp for her anemia please dose meds per egfr will follow along Appreciate hospitalist help in managing this patient Status: Acute (2) Anemia Status: Acute (3) CHF (congestive heart failure) Status: Acute
[2017-08-25] MEDS: GABAPENTIN 300 MG CAPSULE PO SCH (21:07)
[2017-08-26] MEDS: ACETAMINOPHEN 325 MG TABLET PO PRN (03:56)
[2017-08-26] MEDS: HYDROCODONE/APAP 7.5/325MG TABLET PO PRN (03:57)
[2017-08-26] MEDS: PIPERACILLIN SODIUM/TAZOBACTAM 2.25 GM in DEXTROSE 5% IN WATER 50 ML IV SCH ×3 (05:36→22:20)
[2017-08-26] MEDS: 0.9 % SODIUM CHLORIDE 10 ML SYRINGE IV SCH ×3 (05:38→22:20)
[2017-08-26] MEDS: METOCLOPRAMIDE 10 MG TABLET PO SCH ×2 (07:41→15:28)
[2017-08-26] MEDS: LEVOTHYROXINE SODIUM 112 MCG TABLET PO SCH (07:41)
[2017-08-26] MEDS: FUROSEMIDE 100 MG/10 ML VIAL IV SCH (07:54)
[2017-08-26 07:59] LABS: ALT/SGPT 20 U/l (0-40); Albumin 3.5 gm/dL (3.2-5.2); Albumin/Globulin Ratio 1.2 (1.0-2.3); Alkaline Phosphatase 115 U/L (39-117); Bilirubin,Direct < 0.2 mg/dL (0.0-0.3); Blood Urea Nitrogen 103 mg/dl (8-23); Gamma Glutamyl Transpeptidase 66 U/L (5-36); Uric Acid 9.3 mg/dL (2.5-8.0)
[2017-08-26] MEDS: FAMOTIDINE 20 MG TABLET PO SCH ×2 (08:57→20:45)
[2017-08-26] MEDS: FERROUS SULFATE 325 MG TABLET PO SCH ×2 (08:57→17:05)
[2017-08-26] MEDS: HEPARIN 5,000 UNIT/ML VIAL SQ SCH ×2 (08:57→20:45)
[2017-08-26] MEDS: amLODIPine 10 MG TABLET PO SCH ×2 (08:57→20:46)
[2017-08-26] MEDS: CARVEDILOL 12.5 MG TABLET PO SCH ×2 (08:57→17:04)
[2017-08-26] MEDS: CLOPIDOGREL 75 MG TABLET PO SCH (08:57)
[2017-08-26] MEDS: CALCIUM ACETATE 667 MG CAPSULE PO SCH ×3 (08:57→17:04)
[2017-08-26] MEDS: cloNIDine HCL 0.1 MG TABLET PO SCH ×3 (08:57→20:45)
[2017-08-26] MEDS: INSULIN LISPRO 1 UNIT/0.01 ML UNIT SQ SCH ×4 (09:15→20:55)
--- NOTE | 2017-08-26 10:18 | Nephrology Progress Note ---
Subjective Patient information: Note initiated : 08/26/17 at 10:15 am Service Date, if different from initiated Date: [] Patient: Shanda Rhodes 71 y/o F admitted on 08/22/17 for Weakness/CHF, Renal Failure. Chief Complaint: [] Principal diagnosis: acute on chronic renal failure, pul edema Interval history: no overnight events patient continues to improve off oxygen, did walk with PT with minimal SOB no edema no nausea, vomiting eating well no concerns Pertinent ROS: as above Objective - Vital Signs Vital signs: Vital Signs Temp Pulse Resp BP Pulse Ox 08/26/17 07:51 98.5 F 16 151/57 92 08/26/17 04:01 98.4 F 16 142/58 98 08/26/17 00:01 98.8 F 16 109/44 99 08/25/17 20:01 97.8 F 18 127/48 97 08/25/17 20:00 18 97 08/25/17 16:00 98.4 F 16 134/49 100 08/25/17 12:40 97.0 F 16 133/56 100 08/25/17 11:30 59 L 100 08/25/17 11:00 59 L 98 Intake and Output 08/25/17 08/26/17 08/26/17 21:59 05:59 13:59 Intake Total 250 / 250 490 / 490 110 / 110 Output Total 350 / 350 1250 / 1250 Balance -100 / -100 -760 / -760 110 / 110 Intake: IV 50 / 50 50 / 50 50 / 50 Zosyn 2.25 gm In Dextrose 5% in 50 / 50 50 / 50 50 / 50 Water 50 ml @ 100 mls/hr IV Q8H [facility] Rx#:[id number] Oral 200 / 200 440 / 440 60 / 60 Output: Urine Catheter Amount 350 / 350 1250 / 1250 Other: Meal Dinner Nourishment/Supplement Breakfast Percent of Meal Consumed 100% 100% 100% Feeding Ability Independent # Bowel Movements 0 Weight 144 lb 2 oz Intake & Output: Intake & Output 08/25/17 08/26/17 08/26/17 21:59 05:59 13:59 Intake Total 250 / 250 490 / 490 110 / 110 Output Total 350 / 350 1250 / 1250 Balance -100 / -100 -760 / -760 110 / 110 Weight 144 lb 2 oz Intake: IV 50 / 50 50 / 50 50 / 50 Zosyn 2.25 gm In Dextrose 5% in 50 / 50 50 / 50 50 / 50 Water 50 ml @ 100 mls/hr IV Q8H [facility] Rx#:[id number] Oral 200 / 200 440 / 440 60 / 60 Output: Urine Catheter Amount 350 / 350 1250 / 1250 Other: Meal Dinner Nourishment/Supplement Breakfast Percent of Meal Consumed 100% 100% 100% Feeding Ability Independent # Bowel Movements 0 - General Appearance General appearance: appears started age, chronically ill EENT: mucous membranes moist Neck: no JVD Respiratory: clear Cardiology: no rub, normal S1, normal S2 Gastrointestinal: no tenderness, no guarding Integumentary: warm and dry Neurologic: no asterixis, alert and oriented x3 Musculoskeletal: no erythema, no cyanosis Psychiatric: mood/affect appropriate - Lab 08/25/17 03:33 08/26/17 03:34 Most recent lab results Calcium 8.6 mg/dl (8.6-10.4) 08/26/17 03:34 Phosphorus 4.0 mg/dL (2.7-4.5) 08/26/17 03:34 Magnesium 2.7 mg/dL (1.6-2.5) H 08/26/17 03:34 Assessment and Plan (1) Acute on chronic renal failure BUN is down 103, s.creat is at 3.6-3.5-3.7-3.6-3.9 today, stable renal function fluctuates, worse again ? 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 and HTN with h/o nephrotic range proteinuria non oliguric no K issues, mild acidosis started on bicarb supplement she does have significant anemia from iron deficiency and CKD pneumonia on antibiotics renal function remains relatively stable, BUN slowly trending down Pul edema better, no oxygen supplement needed will t IV lasix another day and then change ro oral will continue with IV iron day 3 today, will need 2 more doses before aranesp will be initiated discussed at length that safer to get initiated on dialysis, patient wants to wait and see if her renal function improves but fear of recurrent issues with fluid excess and hospitalisation with does not want to go to rehab, will need to re initiate home health, PT and agrees to get meds in blister pack from pharmacy please dose meds to egfr will follow along Appreciate hospitalist help in managing this patient Status: Acute (2) Anemia Status: Acute (3) CHF (congestive heart failure) Status: Acute
[2017-08-26] MEDS ORDERED: IRON SUCROSE COMPLEX 100 MG/5 ML VIAL IV ONE (10:22)
[2017-08-26] MEDS: DOCUSATE SODIUM 100 MG CAPSULE PO SCH ×2 (10:31→22:19)
[2017-08-26] MEDS: levETIRAcetam 500 MG TABLET PO SCH ×2 (10:32→20:45)
[2017-08-26] MEDS: INSULIN GLARGINE, HUMAN 1 UNIT/0.01 ML SQ SCH ×2 (10:32→20:57)
[2017-08-26] MEDS: SODIUM BICARBONATE 650 MG TABLET PO SCH ×3 (10:32→20:45)
[2017-08-26] MEDS: BUMETANIDE 1 MG TABLET PO SCH (15:27)
--- NOTE | 2017-08-26 18:57 | Internal Med Progress Note ---
Medical - PN: Subj Patient information: Note initiated : 08/26/17 at 6:55 pm Service Date, if different from initiated Date: [] Patient: Shanda Rhodes a 71 y/o F admitted on 08/22/17 for Weakness/CHF, Renal Failure. Chief Complaint: f/u CHF, pneumonia Interval history: 08/22 Ms. Rhodes is a 71 year old F He presents from home with progressive failure to thrive. Patient has underlying dementia, stage III chronic kidney disease, type 2 diabetes, congestive heart failure. History is obtained speaking to the patient, as well as history obtained from the daughter which was relayed by Dr. carrasco from the ED, as well as reviewing her extensive record. [facility] until about a week ago after a left fibular fracture, which was treated at [facility]. Since she's returned home, it's unclear if she is taking her medications correctly. Her daughter states many of her blister packs or spread about, she appears to have missed doses, and there is concern she may been using medications from prior medical regimens. Patient currently complains of just not feeling well, of her legs getting worse and becoming painful from her neuropathy, she is also complaining of throbbing in her mid chest. She also states her abdomen is aching at times, she's had intermittent nausea, no emesis , no diarrhea. She's had normal urine output is not felt any dysuria. She's had some headache, no sore throat, no fever. Her glucoses have been low and high, she did not eat last night, she states that she couldn't find food at home. The patient is describing some "throbbing" discomfort in her mid chest which waxes and wanes, it's not associated with dyspnea, magali, does not radiate. It does not appear to be exertional. she denies any cough or sputum production, no pleuritic chest pain. No orthopnea. She is complaining of pain in her feet with some swelling, she attributes the pain to worsening of her neuropathy. In the emergency department, patient's found to be hypoxic with room air saturation in the 80s, requiring 5 L nasal cannula to maintain normoxia. She has evidence of volume overload on exam and on chest radiograph is being admitted for acute congestive heart failure. In addition she has worsening of her baseline chronic kidney disease. 08/23 Initially seen in the midafternoon. At that point her breathing was improved, overall she felt she was feeling somewhat better. Not much response to 40 mg twice daily Lasix. Around dinner, patient was more lethargic, difficult to arouse, requiring facemask to maintain her oxygenation. ABG showed her hypoxic respiratory failure. Chest radiograph from earlier in the day showed increasing right lower lobe consolidation. She did have low-grade fevers today as well. Moved to the ICU, started on BiPAP and antibiotics. 2/2-Seen in the early afternoon. Much more alert than last evening. Tolerated BiPAP overnight, was off of BiPAP all day today. Urine output picking up with higher doses of furosemide. Remains quite weak overall. When and atrial fibrillation in late morning, is rate controlled, spontaneously cardioverted later in the day. 2/3-continues to feel improved. Sitting up eating breakfast. Dyspnea is improved. No chest pain, no cough or sputum production. Appetite is improved. Remains in normal sinus rhythm/atrial paced rhythm 2/4-in good spirits this morning, seen during breakfast. Sitting up eating, conversant. No dyspnea. Later was ambulating with PT with minimal dyspnea. No chest pain. Edema is improving. No cough or sputum production. Appetite good. - Constitutional Vitals: Vital Signs Temp Pulse Resp BP Pulse Ox 99.1 F H 59 L 14 145/54 96 08/26/17 16:00 08/25/17 11:30 08/26/17 16:00 08/26/17 16:00 08/26/17 16:00 Period Temp Pulse Resp BP Sys/Courtney Pulse Ox Last 24 Hr 97.8 F-99.1 F 14-18 109-153/44-58 92-99 Intake and Output 08/26/17 08/26/17 08/26/17 05:59 13:59 21:59 Intake Total 490 / 490 110 / 110 350 / 350 Output Total 1250 / 1250 1425 / 1425 Balance -760 / -760 110 / 110 -1075 / -1075 Intake & Output: Intake & Output 08/26/17 08/26/17 08/26/17 05:59 13:59 21:59 Intake Total 490 / 490 110 / 110 350 / 350 Output Total 1250 / 1250 1425 / 1425 Balance -760 / -760 110 / 110 -1075 / -1075 Intake: IV 50 / 50 50 / 50 50 / 50 Zosyn 2.25 gm In Dextrose 5% in 50 / 50 50 / 50 50 / 50 Water 50 ml @ 100 mls/hr IV Q8H [facility] Rx#:[id number] Oral 440 / 440 60 / 60 300 / 300 Output: Urine Catheter Amount 1250 / 1250 1425 / 1425 Other: Meal Nourishment/Supplement Breakfast Dinner Percent of Meal Consumed 100% 100% 100% Feeding Ability Independent # Bowel Movements 0 1 # of times incontinent of 1 Bowels Exam: General: In no acute distress, feels pretty good Chest: Clear, no rales Cardiovascular: Regular rate and rhythm, no edema Abdomen: Soft, nontender Neuro: Alert, generally weak, but ambulating with PT with normal gait, minimal dyspnea Medical - PN: Obj Da - Labs CBC & Chem 7: 08/25/17 03:33 08/26/17 03:34 Labs: Abnormal Lab Results 08/26/17 08/25/17 08/25/17 03:34 03:33 03:33 RBC 2.48 L Hgb 7.7 L Hct 22.9 L Lymph % (Auto) 10.5 L Lymph # (Auto) 0.5 L BUN 103 H* 108 H* Creatinine 3.9 H 3.6 H Glucose 178 H 200 H Uric Acid 9.3 H 9.5 H Calcium 8.3 L Magnesium 2.7 H 2.8 H GGT 66 H 66 H Alkaline Phosphatase 124 H Total Protein Vitamin B12 08/24/17 08/24/17 08/24/17 03:28 03:28 03:28 RBC 2.48 L Hgb 7.7 L Hct 23.1 L Lymph % (Auto) 14.9 L Lymph # (Auto) 0.7 L BUN 114 H* Creatinine 3.7 H Glucose 35 L* Uric Acid 9.8 H Calcium 8.5 L Magnesium 2.8 H GGT 59 H Alkaline Phosphatase Total Protein 5.8 L Vitamin B12 1610 H Meds: Medications Acetaminophen (Tylenol) 650 mg PO Q6HP PRN PRN Reason: PAIN/FEVER > 101 Last Admin: 08/26/17 03:56 Dose: 650 mg Hydrocodone Bitart/Acetaminophen ([place] 7.5/325mg) 0.5 tab PO Q6HP PRN PRN Reason: Pain Last Admin: 08/26/17 03:57 Dose: 0.5 tab Amlodipine Besylate (Norvasc) 10 mg PO BID [facility] Last Admin: 08/26/17 08:57 Dose: 10 mg Bumetanide (Bumex) 2 mg PO BIDD [facility] Last Admin: 08/26/17 15:27 Dose: 2 mg Calcium Acetate (Phoslo) 667 mg PO TIDCC [facility] Last Admin: 08/26/17 17:04 Dose: 667 mg Carvedilol (Coreg) 25 mg PO BIDCC [facility] Last Admin: 08/26/17 17:04 Dose: 25 mg Clonidine HCl (Catapres) 0.1 mg PO TID [facility] Last Admin: 08/26/17 15:28 Dose: 0.1 mg Clopidogrel Bisulfate (Plavix) 75 mg PO DAILY [facility] Last Admin: 08/26/17 08:57 Dose: 75 mg Dextrose (Dextrose 50%) 0 ml IV UD PRN PRN Reason: Hypoglycemia Diagnostic Test (Pha) (Accu-Chek) 1 each FS ACHS [facility] Last Admin: 08/26/17 17:05 Dose: 1 each Docusate Sodium (Colace) 100 mg PO BID [facility] Last Admin: 08/26/17 10:31 Dose: 100 mg Famotidine (Pepcid) 20 mg PO BID [facility] Last Admin: 08/26/17 08:57 Dose: 20 mg Ferrous Sulfate (Ferrous Sulfate) 325 mg PO BIDCC [facility] Last Admin: 08/26/17 17:05 Dose: 325 mg Gabapentin (Neurontin) 300 mg PO HS [facility] Last Admin: 08/25/17 21:07 Dose: 300 mg Glucose (Insta-Glucose) 15 gm PO PRN PRN PRN Reason: Hypoglycemia Heparin Sodium (Porcine) (Heparin) 5,000 unit SQ Q12 [facility] Last Admin: 08/26/17 08:57 Dose: 5,000 unit Piperacillin Sod/Tazobactam (Sod 2.25 gm/ Dextrose) 50 mls @ 100 mls/hr IV Q8H [facility] Last Infusion: 08/26/17 16:07 Dose: Infused Insulin Glargine (Lantus) 15 unit SQ DAILY [facility] Last Admin: 08/26/17 10:32 Dose: 15 unit Insulin Glargine (Lantus) 7 unit SQ HS [facility] Last Admin: 08/25/17 21:06 Dose: 7 unit Insulin Human Lispro (Humalog) 0 unit SQ ACHS [facility] PRN Reason: Protocol Last Admin: 08/26/17 17:10 Dose: 2 unit Levetiracetam (Keppra) 500 mg PO BID [facility] Last Admin: 08/26/17 10:32 Dose: 500 mg Levothyroxine Sodium (Synthroid) 112 mcg PO QAMAC [facility] Last Admin: 08/26/17 07:41 Dose: 112 mcg Magnesium Hydroxide (Milk Of Magnesia) 30 ml PO DAILYP PRN PRN Reason: Constipation Last Admin: 08/23/17 15:10 Dose: 30 ml Metoclopramide HCl (Reglan) 5 mg PO BIDAC [facility] Last Admin: 08/26/17 15:28 Dose: 5 mg Ondansetron HCl (Zofran) 4 mg IV Q4HP PRN PRN Reason: Nausea And Vomiting Last Admin: 08/24/17 20:36 Dose: 4 mg Sodium Bicarbonate (Sodium Bicarbonate) 1,300 mg PO TID [facility] Last Admin: 08/26/17 15:27 Dose: 1,300 mg Sodium Chloride (Saline Flush) 10 ml IV Q8 [facility] Last Admin: 08/26/17 14:22 Dose: 10 ml Vancomycin HCl (Vancomycin Per Pharmacy) 1 order IV UD [facility] Medical - PN: A/P - Time Spent With Patient Total time spent is greater than 50% in coordination of care (as documented) at patient's floor/unit and/or counseling patient: 25 - 35 minutes (1) Acute exacerbation of CHF (congestive heart failure) Status: Acute Current Visit: Yes (2) Acute renal failure superimposed on stage 3 chronic kidney disease Status: Acute Current Visit: Yes (3) Acute respiratory failure with hypoxia Status: Acute Current Visit: Yes (4) Dementia Status: Chronic Current Visit: Yes (5) Diabetes mellitus type 2 with complications Status: Chronic Current Visit: Yes - Narrative A/P Narrative: 71-year-old female with a history of congestive heart failure, chronic kidney disease, dementia presents with failure to thrive at home, found to have volume overload/congestive heart failure as well as acute hypoxic respiratory failure. Acute on chronic congestive heart failure, may be systolic and diastolic with mildly depressed systolic function EF 55% but also LVH. Continues to improve on Sunday. About 860 ml diuresis yesterday, net >4L since admit. Troponins were elevated but without change 0.18 range, suspect part of that is due to decreased renal function and decreased clearance. Plan: Change to PO Bumex to see if she can maintain volume balance on PO diuretics. Acute renal failure and chronic kidney disease stage III. Both BUN and creatinine are elevated, generally unchanged. Suspected cardiorenal at first, but no real change with better volume status. Plan: Continue diuresis, trend creatinine. Hemodialysis as a last resort. Per renal. Atrial fibrillation, paroxysmal. New problem with onset on . Remains resolved. Currently atrially paced rhythm. Plan: Continue to monitor on telemetry, optimize electrolytes as needed. Acute hypoxic respiratory failure. Status-post BiPAP tx. Initial chest film with volume overload, subsequently with progressive development of right lower lobe infiltrate suspect also pneumonia. Remains stable on RA on Sunday. Plan: Supplemental oxygen as needed, antibiotics, diuresis Pneumonia. Progressive right lower lobe consolidation, low-grade fevers consistent with superimposed pneumonia on top of congestive heart failure. Improving. Plan: Continue vancomycin and Zosyn for healthcare acquired pneumonia. Day #4. Dementia. Patient appears to have trouble caring for herself at home since her discharge from skilled facility. Plan: Supportive care, social sciences lecturer consultation. Likely will insist on returning to home. Discharge planning noted her pharmacy was looking into dispensing blister packs to her. Type 2 diabetes mellitus. Plan: Continue controlled carbohydrate as well as low-sodium diet, continue with her Lantus at 15 units in the morning, 7 units at bedtime, sliding scale insulin, Accu-Cheks. Right carotid bruit. Has significant external carotid as well as 50% range internal carotid stenoses. Plan: Continue with Plavix and statin for now, may need surgical referral. History of cerebrovascular accident. Plan: Continue with Plavix and statin. History of seizure disorder, no current seizure activity. Plan: Continue with Keppra CODE STATUS is discussed with the patient, is DO NOT RESUSCITATE. Prophylaxis: Subcutaneous heparin. Medical - PN: Qual - VTE Deep Vein Thrombosis/Pulmonary Embolism Present on Admission: No
[2017-08-26] MEDS: GABAPENTIN 300 MG CAPSULE PO SCH (20:45)
[2017-08-27] MEDS: PIPERACILLIN SODIUM/TAZOBACTAM 2.25 GM in DEXTROSE 5% IN WATER 50 ML IV SCH ×3 (05:41→22:51)
[2017-08-27] MEDS: 0.9 % SODIUM CHLORIDE 10 ML SYRINGE IV SCH ×3 (05:54→23:10)
[2017-08-27] MEDS: LEVOTHYROXINE SODIUM 112 MCG TABLET PO SCH (07:12)
[2017-08-27] MEDS: INSULIN LISPRO 1 UNIT/0.01 ML UNIT SQ SCH ×4 (07:27→22:58)
[2017-08-27] MEDS: METOCLOPRAMIDE 10 MG TABLET PO SCH ×2 (07:29→17:25)
[2017-08-27] MEDS: CARVEDILOL 12.5 MG TABLET PO SCH ×2 (08:05→17:34)
[2017-08-27] MEDS: BUMETANIDE 1 MG TABLET PO SCH ×2 (08:05→17:13)
[2017-08-27] MEDS: FERROUS SULFATE 325 MG TABLET PO SCH ×2 (08:05→17:34)
[2017-08-27] MEDS: CALCIUM ACETATE 667 MG CAPSULE PO SCH ×3 (08:05→17:34)
[2017-08-27 08:42] LABS: Blood Urea Nitrogen 93 mg/dl (8-23)
[2017-08-27] MEDS: DOCUSATE SODIUM 100 MG CAPSULE PO SCH ×3 (08:57→22:52)
[2017-08-27] MEDS: cloNIDine HCL 0.1 MG TABLET PO SCH ×3 (08:57→22:52)
[2017-08-27] MEDS: amLODIPine 10 MG TABLET PO SCH ×2 (08:57→22:52)
[2017-08-27] MEDS: CLOPIDOGREL 75 MG TABLET PO SCH (08:57)
[2017-08-27] MEDS: FAMOTIDINE 20 MG TABLET PO SCH ×2 (08:57→22:50)
[2017-08-27] MEDS: HEPARIN 5,000 UNIT/ML VIAL SQ SCH ×2 (08:58→22:50)
[2017-08-27] MEDS: INSULIN GLARGINE, HUMAN 1 UNIT/0.01 ML SQ SCH ×2 (08:58→22:59)
[2017-08-27] MEDS: levETIRAcetam 500 MG TABLET PO SCH ×2 (09:02→22:50)
[2017-08-27] MEDS: SODIUM BICARBONATE 650 MG TABLET PO SCH ×3 (09:02→23:10)
--- NOTE | 2017-08-27 10:23 | XRay Report ---
CLINICAL INFORMATION: Follow up CHF COMPARISON: 08/25/2017 FINDINGS: Heart has increased and is now moderately enlarged. Dual-chamber pacemaker leads in stable satisfactory position. Mediastinum is unremarkable. The pulmonary vessels have increased in caliber and are now moderately distended and worsening interstitial edema throughout both lungs. Moderate infiltrate or atelectasis in the right base has also worsened slightly. Small right pleural effusion is unchanged IMPRESSION: 1. Moderate CHF - worsening from exam two days ago 2. Moderate patchy infiltrate or atelectasis in the right base worsening slightly Interpreted and Authenticated by: Pradeep Martines 08/27/17
--- NOTE | 2017-08-27 11:31 | Internal Med Progress Note ---
Medical - PN: Subj Patient information: Note initiated : 08/27/17 at 11:28 am Service Date, if different from initiated Date: [] Patient: Shanda Rhodes a 71 y/o F admitted on 08/22/17 for Weakness/CHF, Renal Failure. Chief Complaint: f/u renal failure, pneumonia, CHF Interval history: 08/22 Ms. Rhodes is a 71 year old F He presents from home with progressive failure to thrive. Patient has underlying dementia, stage III chronic kidney disease, type 2 diabetes, congestive heart failure. History is obtained speaking to the patient, as well as history obtained from the daughter which was relayed by Dr. carrasco from the ED, as well as reviewing her extensive record. She was in the [facility] skilled facility up until about a week ago after a left fibular fracture, which was treated at [facility]. Since she's returned home, it's unclear if she is taking her medications correctly. Her daughter states many of her blister packs or spread about, she appears to have missed doses, and there is concern she may been using medications from prior medical regimens. Patient currently complains of just not feeling well, of her legs getting worse and becoming painful from her neuropathy, she is also complaining of throbbing in her mid chest. She also states her abdomen is aching at times, she's had intermittent nausea, no emesis , no diarrhea. She's had normal urine output is not felt any dysuria. She's had some headache, no sore throat, no fever. Her glucoses have been low and high, she did not eat last night, she states that she couldn't find food at home. The patient is describing some "throbbing" discomfort in her mid chest which waxes and wanes, it's not associated with dyspnea, magali, does not radiate. It does not appear to be exertional. she denies any cough or sputum production, no pleuritic chest pain. No orthopnea. She is complaining of pain in her feet with some swelling, she attributes the pain to worsening of her neuropathy. In the emergency department, patient's found to be hypoxic with room air saturation in the 80s, requiring 5 L nasal cannula to maintain normoxia. She has evidence of volume overload on exam and on chest radiograph is being admitted for acute congestive heart failure. In addition she has worsening of her baseline chronic kidney disease. 08/23 Initially seen in the midafternoon. At that point her breathing was improved, overall she felt she was feeling somewhat better. Not much response to 40 mg twice daily Lasix. Around dinner, patient was more lethargic, difficult to arouse, requiring facemask to maintain her oxygenation. ABG showed her hypoxic respiratory failure. Chest radiograph from earlier in the day showed increasing right lower lobe consolidation. She did have low-grade fevers today as well. Moved to the ICU, started on BiPAP and antibiotics. 2/-Seen in the early afternoon. Much more alert than last evening. Tolerated BiPAP overnight, was off of BiPAP all day today. Urine output picking up with higher doses of furosemide. Remains quite weak overall. When and atrial fibrillation in late morning, is rate controlled, spontaneously cardioverted later in the day. 2/3-continues to feel improved. Sitting up eating breakfast. Dyspnea is improved. No chest pain, no cough or sputum production. Appetite is improved. Remains in normal sinus rhythm/atrial paced rhythm 2-in good spirits this morning, seen during breakfast. Sitting up eating, conversant. No dyspnea. Later was ambulating with PT with minimal dyspnea. No chest pain. Edema is improving. No cough or sputum production. Appetite good. 08/27-sleeping soundly in midmorning I see her. Been up earlier with breakfast. Was complaining of some tremor when she was starting to walk with her walker. Respiratory status is stable, renal function has not recovered with treatment of pneumonia and heart failure. Denies any dyspnea, no nausea or vomiting. Appetite is good. Transition to by mouth diuretics yesterday. Was seen by Dr. Esparza earlier, patient has discussed dialysis with all of her children, this point if needed she would like to pursue dialysis. - Constitutional Vitals: Vital Signs Temp Pulse Resp BP Pulse Ox 98.9 F 57 L 16 145/61 97 08/27/17 08:15 08/27/17 04:00 08/27/17 08:15 08/27/17 08:15 08/27/17 08:15 Period Temp Pulse Resp BP Sys/Courtney Pulse Ox Last 24 Hr 98.5 F-99.8 F 57-63 14-20 145-153/48-61 91-97 Intake and Output 08/26/17 08/27/17 08/27/17 21:59 05:59 13:59 Intake Total 350 / 350 465 / 465 290 / 290 Output Total 1750 / 1750 725 / 725 Balance -1400 / -1400 -260 / -260 290 / 290 Weight 144 lb 2 oz Intake & Output: Intake & Output 08/26/17 08/27/17 08/27/17 21:59 05:59 13:59 Intake Total 350 / 350 465 / 465 290 / 290 Output Total 1750 / 1750 725 / 725 Balance -1400 / -1400 -260 / -260 290 / 290 Weight 144 lb 2 oz Intake: IV 50 / 50 50 / 50 50 / 50 Zosyn 2.25 gm In Dextrose 5% in 50 / 50 50 / 50 50 / 50 Water 50 ml @ 100 mls/hr IV Q8H ON LICENSE OF [facility] Rx#:[id number] Oral 300 / 300 415 / 415 240 / 240 Output: Urine Catheter Amount 1750 / 1750 725 / 725 Other: Meal Dinner Breakfast Percent of Meal Consumed 100% 100% Feeding Ability Assist with Tray Set Up # Bowel Movements 1 # of times incontinent of 1 Bowels Exam: General: Sleeping soundly, wakes, alert, conversant Chest: Clear, no rales Cardio vascular: Regular with unchanged murmur. No edema Abdomen: Soft, nontender Neuro: Alert, oriented to person, place, situation. Moves all extremities. Occasional resting tremor. Medical - PN: Obj Da - Labs CBC & Chem 7: 08/25/17 03:33 08/27/17 07:41 Labs: Abnormal Lab Results 08/27/17 08/26/17 08/25/17 07:41 03:34 03:33 RBC Hgb Hct Lymph % (Auto) Lymph # (Auto) Chloride 94 L BUN 93 H 103 H* 108 H* Creatinine 4.1 H 3.9 H 3.6 H Glucose 178 H 200 H Uric Acid 9.3 H 9.5 H Calcium 8.3 L Magnesium 2.7 H 2.8 H GGT 66 H 66 H Alkaline Phosphatase 124 H 08/25/17 03:33 RBC 2.48 L Hgb 7.7 L Hct 22.9 L Lymph % (Auto) 10.5 L Lymph # (Auto) 0.5 L Chloride BUN Creatinine Glucose Uric Acid Calcium Magnesium GGT Alkaline Phosphatase Meds: Medications Acetaminophen (Tylenol) 650 mg PO Q6HP PRN PRN Reason: PAIN/FEVER > 101 Last Admin: 08/26/17 03:56 Dose: 650 mg Hydrocodone Bitart/Acetaminophen ([place] 7.5/325mg) 0.5 tab PO Q6HP PRN PRN Reason: Pain Last Admin: 08/26/17 03:57 Dose: 0.5 tab Amlodipine Besylate (Norvasc) 10 mg PO BID ON LICENSE OF [facility] Last Admin: 08/27/17 08:57 Dose: 10 mg Bumetanide (Bumex) 1 mg PO BIDD ON LICENSE OF [facility] Calcium Acetate (Phoslo) 667 mg PO TIDCC ON LICENSE OF [facility] Last Admin: 08/27/17 08:05 Dose: 667 [facility] Last Admin: 08/27/17 08:05 Dose: 25 mg Clonidine HCl (Catapres) 0.1 mg PO TID ON LICENSE OF [facility] Last Admin: 08/27/17 08:57 Dose: 0.1 mg Clopidogrel Bisulfate (Plavix) 75 mg PO DAILY ON LICENSE OF [facility] Last Admin: 08/27/17 08:57 Dose: 75 mg Dextrose (Dextrose 50%) 0 ml IV UD PRN PRN Reason: Hypoglycemia Diagnostic Test (Pha) (Accu-Chek) 1 each FS ACHS ON LICENSE OF [facility] Last Admin: 08/27/17 07:24 Dose: 1 each Docusate Sodium (Colace) 100 mg PO BID ON LICENSE OF [facility] Last Admin: 08/27/17 09:13 Dose: Not Given Famotidine (Pepcid) 20 mg PO BID ON LICENSE OF [facility] Last Admin: 08/27/17 08:57 Dose: 20 mg Ferrous Sulfate (Ferrous Sulfate) 325 mg PO BIDCC ON LICENSE OF [facility] Last Admin: 08/27/17 08:05 Dose: 325 mg Gabapentin (Neurontin) 300 mg PO HS ON LICENSE OF [facility] Last Admin: 08/26/17 20:45 Dose: 300 mg Glucose (Insta-Glucose) 15 gm PO PRN PRN PRN Reason: Hypoglycemia Heparin Sodium (Porcine) (Heparin) 5,000 unit SQ Q12 ON LICENSE OF [facility] Last Admin: 08/27/17 08:58 Dose: 5,000 unit Piperacillin Sod/Tazobactam (Sod 2.25 gm/ Dextrose) 50 mls @ 100 mls/hr IV Q8H ON LICENSE OF [facility] Last Infusion: 08/27/17 06:18 Dose: Infused Insulin Glargine (Lantus) 15 unit SQ DAILY ON LICENSE OF [facility] Last Admin: 08/27/17 08:58 Dose: 15 unit Insulin Glargine (Lantus) 7 unit SQ HS ON LICENSE OF [facility] Last Admin: 08/26/17 20:57 Dose: 7 unit Insulin Human Lispro (Humalog) 0 unit SQ ACHS ON LICENSE OF [facility] PRN Reason: Protocol Last Admin: 08/27/17 07:27 Dose: Not Given Levetiracetam (Keppra) 500 mg PO BID ON LICENSE OF [facility] Last Admin: 08/27/17 09:02 Dose: 500 mg Levothyroxine Sodium (Synthroid) 112 mcg PO QAMAC ON LICENSE OF [facility] Last Admin: 08/27/17 07:12 Dose: 112 mcg Magnesium Hydroxide (Milk Of Magnesia) 30 ml PO DAILYP PRN PRN Reason: Constipation Last Admin: 08/23/17 15:10 Dose: 30 ml Metoclopramide HCl (Reglan) 5 mg PO BIDAC ON LICENSE OF [facility] Last Admin: 08/27/17 07:29 Dose: 5 mg Ondansetron HCl (Zofran) 4 mg IV Q4HP PRN PRN Reason: Nausea And Vomiting Last Admin: 08/24/17 20:36 Dose: 4 mg Sodium Bicarbonate (Sodium Bicarbonate) 1,300 mg PO TID ON LICENSE OF [facility] Last Admin: 08/27/17 09:02 Dose: 1,300 mg Sodium Chloride (Saline Flush) 10 ml IV Q8 ON LICENSE OF [facility] Last Admin: 08/27/17 05:54 Dose: 10 ml Vancomycin HCl (Vancomycin Per Pharmacy) 1 order IV UD ON LICENSE OF [facility] Medical - PN: A/P - Time Spent With Patient Total time spent is greater than 50% in coordination of care (as documented) at patient's floor/unit and/or counseling patient: 25 - 35 minutes (1) Acute exacerbation of CHF (congestive heart failure) Status: Acute Current Visit: Yes (2) Acute renal failure superimposed on stage 3 chronic kidney disease Status: Acute Current Visit: Yes (3) Acute respiratory failure with hypoxia Status: Acute Current Visit: Yes (4) Dementia Status: Chronic Current Visit: Yes (5) Diabetes mellitus type 2 with complications Status: Chronic Current Visit: Yes - Narrative A/P Narrative: 71-year-old female with a history of congestive heart failure, chronic kidney disease, dementia presents with failure to thrive at home, found to have volume overload/congestive heart failure as well as acute hypoxic respiratory failure. Acute on chronic congestive heart failure, may be systolic and diastolic with mildly depressed systolic function EF 55% but also LVH. Stable Sunday. Net 1550 ml diuresis yesterday, net >5L since admit. Troponins were elevated but without change 0.18 range, suspect part of that is due to decreased renal function and decreased clearance. Plan: Continue PO Bumex, but may be close to euvolemia; might have to decrease dose. Acute renal failure and chronic kidney disease stage III. Both BUN and creatinine are elevated, worsseing today. No real change with improvement of voluem status (Initially suspected cardiorenal). Tremor may be related to uremia. Plan: Discussion of HD per Dr. Esparza. Patient is now willing to consider after discussing with family. Atrial fibrillation, paroxysmal, self limited for several hours on . Remains resolved. Currently atrially paced rhythm. Plan: Continue to monitor on telemetry, optimize electrolytes as needed. Pneumonia. Progressive right lower lobe consolidation, low-grade fevers consistent with superimposed pneumonia on top of congestive heart failure. Improving. Plan: Continue vancomycin and Zosyn for healthcare acquired pneumonia. Day #5. Acute hypoxic respiratory failure. Status-post BiPAP tx. Initial chest film with volume overload, subsequently with progressive development of right lower lobe infiltrate suspect also pneumonia. Mostly on RA, occasional need for O2.. Plan: Supplemental oxygen as needed, antibiotics, diuresis Dementia. Patient appears to have trouble caring for herself at home since her discharge from skilled facility. Likely will insist on returning to home, though on Sunday may be more amenable to SNF. Plan: Supportive care, drug abuse social worker consultation. Discharge planning noted her pharmacy was looking into dispensing blister packs to her. Type 2 diabetes mellitus. Plan: Continue controlled carbohydrate as well as low-sodium diet, continue with her Lantus at 15 units in the morning, 7 units at bedtime, sliding scale insulin, Accu-Cheks. Right carotid bruit. Has significant external carotid as well as 50% range internal carotid stenoses. Plan: Continue with Plavix and statin for now, may need surgical referral. History of cerebrovascular accident. Plan: Continue with Plavix and statin. History of seizure disorder, no current seizure activity. Plan: Continue with Keppra CODE STATUS is discussed with the patient, is DO NOT RESUSCITATE. Prophylaxis: Subcutaneous heparin. Medical - PN: Qual - VTE Deep Vein Thrombosis/Pulmonary Embolism Present on Admission: No
--- NOTE | 2017-08-27 16:24 | Nephrology Progress Note ---
Subjective Patient information: Note initiated : 08/27/17 at 4:19 pm Service Date, if different from initiated Date: [] Patient: Shanda Rhodes 71 y/o F admitted on 08/22/17 for Weakness/CHF, Renal Failure. Chief Complaint: [] fatigue, SOB Principal diagnosis: acute on chronic renal failure, pul edema Interval history: Patient c/of eeling tired she is also noted to have flapping tremors good urinary output but CXR still with CHF renal function continues to get worse no nausea, vomiting no edema no other concerns or events reported by nursing staff Pertinent ROS: ABOVE Objective - Vital Signs Vital signs: Vital Signs Temp Pulse Pulse Resp BP Pulse Ox 08/27/17 12:00 99.4 F H 18 145/61 93 08/27/17 08:15 98.9 F 16 145/61 97 08/27/17 08:00 97 08/27/17 04:00 99.8 F H 57 L 20 146/50 95 08/27/17 03:30 63 95 08/27/17 03:00 60 96 08/27/17 02:30 60 96 08/27/17 02:00 59 L 92 08/27/17 01:30 59 L 93 08/27/17 01:00 60 91 08/27/17 00:30 60 95 08/27/17 00:00 60 95 08/26/17 23:36 99.2 F H 16 145/48 96 08/26/17 21:00 59 L 95 08/26/17 20:30 60 94 08/26/17 20:00 99.0 F H 61 18 147/55 95 Intake and Output 08/27/17 08/27/17 08/27/17 05:59 13:59 21:59 Intake Total 465 / 465 290 / 290 Output Total 725 / 725 Balance -260 / -260 290 / 290 Intake: IV 50 / 50 50 / 50 Zosyn 2.25 gm In Dextrose 5% in 50 / 50 50 / 50 Water 50 ml @ 100 mls/hr IV Q8H [facility] Rx#:[id number] Oral 415 / 415 240 / 240 Output: Urine Catheter Amount 725 / 725 Other: Meal Breakfast Percent of Meal Consumed 100% Feeding Ability Assist with Tray Set Up Weight 144 lb 2 oz 144 lb 2 oz Patient Weight 02/06/18 05:59 Weight 144 lb 2 oz Intake & Output: Intake & Output 08/27/17 08/27/17 08/27/17 05:59 13:59 21:59 Intake Total 465 / 465 290 / 290 Output Total 725 / 725 Balance -260 / -260 290 / 290 Weight 144 lb 2 oz 144 lb 2 oz Intake: IV 50 / 50 50 / 50 Zosyn 2.25 gm In Dextrose 5% in 50 / 50 50 / 50 Water 50 ml @ 100 mls/hr IV Q8H [facility] Rx#:[id number] Oral 415 / 415 240 / 240 Output: Urine Catheter Amount 725 / 725 Other: Meal Breakfast Percent of Meal Consumed 100% Feeding Ability Assist with Tray Set Up - General Appearance General appearance: appears started age, chronically ill EENT: mucous membranes moist Neck: no JVD Respiratory: clear Cardiology: no rub, no edema, normal S1, normal S2 Gastrointestinal: no tenderness, no guarding Integumentary: warm and dry Neurologic: asterixis, alert and oriented x3 Musculoskeletal: no erythema, no cyanosis Psychiatric: mood/affect appropriate - Lab 08/25/17 03:33 08/27/17 07:41 Most recent lab results Calcium 8.7 mg/dl (8.6-10.4) 08/27/17 07:41 Phosphorus 4.0 mg/dL (2.7-4.5) 08/26/17 03:34 Magnesium 2.7 mg/dL (1.6-2.5) H 08/26/17 03:34 Assessment and Plan (1) Acute on chronic renal failure BUN is down 94, s.creat is at 3.6-3.5-3.7-3.6-3.9-4.0today, renal function fluctuates, worse again ? 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 and HTN with h/o nephrotic range proteinuria non oliguric no K issues, mild acidosis started on bicarb supplement Patient has flapping tremors, persistent CHF despite diuresis, steadily worsening renal function, discussed dialysis again, she and her family agrees, discussed risk and benefit including risk of procedure at length she does have significant anemia from iron deficiency and CKD pneumonia on antibiotics patient will have non tunneled cath placed today by IR at [facility], will do HD for 1.5 hrs using revaclear dialyser, 3K/2.5ca dialysate at QB 200ML/MIN, QD 300ML/ MIN AND NO UF removal to prevent dialysis dysequilibrium ct bumex [address]mg bid [address] venofer, day 4 today today, tomorrow will be last dose and then initiate aranesp start spirometry given atelectasis dose meds to HD WILL FOLLOW ALONG Appreciate hospitalist help in managing this patient Status: Acute (2) Anemia Status: Acute (3) CHF (congestive heart failure) Status: Acute
[2017-08-27] MEDS: IRON SUCROSE COMPLEX 100 MG/5 ML VIAL IV ONE ×2 (17:13→18:25)
[2017-08-27] MEDS: ACETAMINOPHEN 325 MG TABLET PO PRN (21:55)
[2017-08-27] MEDS: GABAPENTIN 300 MG CAPSULE PO SCH (22:50)
[2017-08-27] MEDS: ONDANSETRON 4 MG/2 ML VIAL IV PRN (23:38)
[2017-08-28 04:41] LABS: Mean Cell Volume 92.8 fL (80.0-100.0); Mean Corpuscular HGB Conc 32.9 g/dL (31.0-36.0); Mean Corpuscular Hemoglobin 30.5 pg (26.0-34.0); Platelet Count 235 K/mcL (140-440); RBC 2.65 M/mcL (4.00-5.20); Red Cell Distribution Width 14.1 % (11.5-14.5)
[2017-08-28 04:56] LABS: ALT/SGPT 12 U/l (0-40); Albumin 3.4 gm/dL (3.2-5.2); Albumin/Globulin Ratio 1.3 (1.0-2.3); Alkaline Phosphatase 103 U/L (39-117); Bilirubin,Direct < 0.2 mg/dL (0.0-0.3); Blood Urea Nitrogen 58 mg/dl (8-23); Gamma Glutamyl Transpeptidase 61 U/L (5-36); Uric Acid 5.8 mg/dL (2.5-8.0)
[2017-08-28] MEDS: PIPERACILLIN SODIUM/TAZOBACTAM 2.25 GM in DEXTROSE 5% IN WATER 50 ML IV SCH ×3 (05:49→21:46)
[2017-08-28] MEDS: 0.9 % SODIUM CHLORIDE 10 ML SYRINGE IV SCH ×3 (05:50→22:15)
[2017-08-28 06:14] LABS: Anisocytosis 1+ (NONE SEEN); Band Neutrophils % 5 % (0-10); Eosinophils % (Manual) 5 % (0-7); Lymphocytes % 11 % (15-49); Monocytes % (Manual) 8 % (1-12); Platelet Estimate NORMAL (NORMAL); RBC Morphology ABNORMAL (NORMAL); Segmented Neutrophils % 71 % (38-78)
[2017-08-28] MEDS: CALCIUM ACETATE 667 MG CAPSULE PO SCH (08:05)
[2017-08-28] MEDS: LEVOTHYROXINE SODIUM 112 MCG TABLET PO SCH (08:05)
[2017-08-28] MEDS: METOCLOPRAMIDE 10 MG TABLET PO SCH ×2 (08:06→17:21)
[2017-08-28] MEDS: INSULIN LISPRO 1 UNIT/0.01 ML UNIT SQ SCH ×4 (08:07→21:23)
[2017-08-28] MEDS: CARVEDILOL 12.5 MG TABLET PO SCH ×2 (08:22→17:21)
[2017-08-28] MEDS: BUMETANIDE 1 MG TABLET PO SCH ×2 (08:22→15:33)
[2017-08-28] MEDS: FERROUS SULFATE 325 MG TABLET PO SCH ×2 (08:22→17:21)
[2017-08-28] MEDS ORDERED: VANCOMYCIN 750 MG in 0.9 % SODIUM CHLORIDE 250 ML IV ONE (09:00)
[2017-08-28] MEDS: HEPARIN 5,000 UNIT/ML VIAL SQ SCH ×2 (09:41→21:22)
[2017-08-28] MEDS: cloNIDine HCL 0.1 MG TABLET PO SCH ×3 (09:41→21:21)
[2017-08-28] MEDS: amLODIPine 10 MG TABLET PO SCH ×2 (09:41→21:21)
[2017-08-28] MEDS: INSULIN GLARGINE, HUMAN 1 UNIT/0.01 ML SQ SCH ×2 (09:42→21:22)
[2017-08-28] MEDS: DOCUSATE SODIUM 100 MG CAPSULE PO SCH ×2 (09:42→23:28)
[2017-08-28] MEDS: levETIRAcetam 500 MG TABLET PO SCH ×2 (09:45→21:21)
[2017-08-28] MEDS: CLOPIDOGREL 75 MG TABLET PO SCH (10:33)
[2017-08-28] MEDS: SODIUM BICARBONATE 650 MG TABLET PO SCH (10:33)
[2017-08-28] MEDS: FAMOTIDINE 20 MG TABLET PO SCH (10:33)
[2017-08-28] MEDS ORDERED: IRON SUCROSE COMPLEX 100 MG/5 ML VIAL IV ONE (11:13)
--- NOTE | 2017-08-28 14:00 | Internal Med Progress Note ---
Medical - PN: Subj Patient information: Note initiated : 08/28/17 at 1:57 pm Service Date, if different from initiated Date: [] Patient: Shanda Rhodes a 71 y/o F admitted on 08/22/17 for Weakness/CHF, Renal Failure. Chief Complaint: [] Interval history: 08/22 Ms. Rhodes is a 71 year old F He presents from home with progressive failure to thrive. Patient has underlying dementia, stage III chronic kidney disease, type 2 diabetes, congestive heart failure. History is obtained speaking to the patient, as well as history obtained from the daughter which was relayed by Dr. carrasco from the ED, as well as reviewing her extensive record. She was in the [facility] up until about a week ago after a left fibular fracture, which was treated at [facility]. Since she's returned home, it's unclear if she is taking her medications correctly. Her daughter states many of her blister packs or spread about, she appears to have missed doses, and there is concern she may been using medications from prior medical regimens. Patient currently complains of just not feeling well, of her legs getting worse and becoming painful from her neuropathy, she is also complaining of throbbing in her mid chest. She also states her abdomen is aching at times, she's had intermittent nausea, no emesis , no diarrhea. She's had normal urine output is not felt any dysuria. She's had some headache, no sore throat, no fever. Her glucoses have been low and high, she did not eat last night, she states that she couldn't find food at home. The patient is describing some "throbbing" discomfort in her mid chest which waxes and wanes, it's not associated with dyspnea, magali, does not radiate. It does not appear to be exertional. she denies any cough or sputum production, no pleuritic chest pain. No orthopnea. She is complaining of pain in her feet with some swelling, she attributes the pain to worsening of her neuropathy. In the emergency department, patient's found to be hypoxic with room air saturation in the 80s, requiring 5 L nasal cannula to maintain normoxia. She has evidence of volume overload on exam and on chest radiograph is being admitted for acute congestive heart failure. In addition she has worsening of her baseline chronic kidney disease. 08/23 Initially seen in the midafternoon. At that point her breathing was improved, overall she felt she was feeling somewhat better. Not much response to 40 mg twice daily Lasix. Around dinner, patient was more lethargic, difficult to arouse, requiring facemask to maintain her oxygenation. ABG showed her hypoxic respiratory failure. Chest radiograph from earlier in the day showed increasing right lower lobe consolidation. She did have low-grade fevers today as well. Moved to the ICU, started on BiPAP and antibiotics. 08/24-Seen in the early afternoon. Much more alert than last evening. Tolerated BiPAP overnight, was off of BiPAP all day today. Urine output picking up with higher doses of furosemide. Remains quite weak overall. When and atrial fibrillation in late morning, is rate controlled, spontaneously cardioverted later in the day. 08/25-continues to feel improved. Sitting up eating breakfast. Dyspnea is improved. No chest pain, no cough or sputum production. Appetite is improved. Remains in normal sinus rhythm/atrial paced rhythm 08/26-in good spirits this morning, seen during breakfast. Sitting up eating, conversant. No dyspnea. Later was ambulating with PT with minimal dyspnea. No chest pain. Edema is improving. No cough or sputum production. Appetite good. 08/27-sleeping soundly in midmorning I see her. Been up earlier with breakfast. Was complaining of some tremor when she was starting to walk with her walker. Respiratory status is stable, renal function has not recovered with treatment of pneumonia and heart failure. Denies any dyspnea, no nausea or vomiting. Appetite is good. Transition to by mouth diuretics yesterday. Was seen by Dr. Esparza earlier, patient has discussed dialysis with all of her children, this point if needed she would like to pursue dialysis. 08/28: Patient seen examined, some nausea there, but was able to eat a good breakfast, started on HD yesterday, and toelated it well, had no other complaints. Pertinent ROS: Denies headache, dizziness Denies chest pain, palpitations Denies cough or shortness of breath Denies abdominal pain, or vomiting. - Constitutional Vitals: Vital Signs Temp Pulse Resp BP Pulse Ox 97.1 F 60 18 168/64 93 08/28/17 12:42 08/28/17 13:53 08/28/17 12:00 08/28/17 13:53 08/28/17 12:00 Period Temp Pulse Resp BP Sys/Courtney Pulse Ox Last 24 Hr 96.4 F-99.8 F 60-96 12-22 68-168/45-75 91-100 Intake and Output 08/27/17 08/28/17 08/28/17 21:59 05:59 13:59 Intake Total 50 / 50 290 / 290 Output Total 1050 / 1050 325 / 325 Balance -1050 / -1050 -275 / -275 290 / 290 Weight 147 lb 147 lb Intake & Output: Intake & Output 08/27/17 08/28/17 08/28/17 21:59 05:59 13:59 Intake Total 50 / 50 290 / 290 Output Total 1050 / 1050 325 / 325 Balance -1050 / -1050 -275 / -275 290 / 290 Weight 147 lb 147 lb Intake: IV 50 / 50 50 / 50 Zosyn 2.25 gm In Dextrose 5% in 50 / 50 50 / 50 Water 50 ml @ 100 mls/hr IV Q8H [facility] Rx#:[id number] Oral 240 / 240 Output: Urine Catheter Amount 1050 / 1050 325 / 325 Hemodialysis UF 0 / 0 Other: Meal Breakfast Percent of Meal Consumed 100% Feeding Ability Assist with Tray Set Up # Bowel Movements 1 # of times incontinent of 1 Bowels Exam: Constitutional; Afebrile, cooperative, alert, not in distress. Eyes- No icterus, , No periorbital swelling Ears- Ext ear normal, Neck- Midline trachea, supple Respiratory system: Air Entry equal on both sides, leandro basilar crackles, right > left CVS- Rate rhythm regular, S1,S2 heard, no gallop, no rub. Abdomen- Soft nontender abdomen, no organomegaly, no tenderness, no guarding or rigidity, NUTRITIONAL ASSISTANT- AOOx3, moving all extremities, no gross focal deficit noted. Medical - PN: Obj Da - Labs CBC & Chem 7: 08/28/17 03:40 08/28/17 03:40 Labs: Abnormal Lab Results 08/28/17 08/28/17 08/27/17 03:40 03:40 13:17 RBC 2.65 L Hgb 8.1 L Hct 24.5 L Lymphocytes % 11 L Anisocytosis 1+ A RBC Fragments Few A APTT 42 H Chloride BUN 58 H Creatinine 3.1 H Glucose 185 H Uric Acid Calcium 8.4 L Magnesium GGT 61 H 08/27/17 08/26/17 07:41 03:34 RBC Hgb Hct Lymphocytes % Anisocytosis RBC Fragments APTT Chloride 94 L BUN 93 H 103 H* Creatinine 4.1 H 3.9 H Glucose 178 H Uric Acid 9.3 H Calcium Magnesium 2.7 H GGT 66 H Meds: Medications Acetaminophen (Tylenol) 650 mg PO Q6HP PRN PRN Reason: PAIN/FEVER > 101 Last Admin: 08/27/17 21:55 Dose: 650 mg Hydrocodone Bitart/Acetaminophen (Devens 7.5/325mg) 0.5 tab PO Q6HP PRN PRN Reason: Pain Last Admin: 08/26/17 03:57 Dose: 0.5 tab Amlodipine Besylate (Norvasc) 10 mg PO BID [facility] Last Admin: 08/28/17 09:41 Dose: 10 mg Bumetanide (Bumex) 1 mg PO BIDD [facility] Last Admin: 08/28/17 08:22 Dose: 1 mg Carvedilol (Coreg) 25 mg PO BIDCC [facility] Last Admin: 08/28/17 08:22 Dose: 25 mg Clonidine HCl (Catapres) 0.1 mg PO TID [facility] Last Admin: 08/28/17 09:41 Dose: 0.1 mg Dextrose (Dextrose 50%) 0 ml IV UD PRN PRN Reason: Hypoglycemia Diagnostic Test (Pha) (Accu-Chek) 1 each FS ACHS [facility] Last Admin: 08/28/17 12:29 Dose: 1 each Docusate Sodium (Colace) 100 mg PO BID [facility] Last Admin: 08/28/17 09:42 Dose: Not Given Famotidine (Pepcid) 20 mg PO HS [facility] Ferrous Sulfate (Ferrous Sulfate) 325 mg PO BIDCC [facility] Last Admin: 08/28/17 08:22 Dose: 325 mg Gabapentin (Neurontin) 100 mg PO HS [facility] Glucose (Insta-Glucose) 15 gm PO PRN PRN PRN Reason: Hypoglycemia Heparin Sodium (Porcine) (Heparin) 5,000 unit SQ Q12 [facility] Last Admin: 08/28/17 09:41 Dose: 5,000 unit Piperacillin Sod/Tazobactam (Sod 2.25 gm/ Dextrose) 50 mls @ 100 mls/hr IV Q8H [facility] Last Infusion: 08/28/17 06:30 Dose: Infused Insulin Glargine (Lantus) 15 unit SQ DAILY [facility] Last Admin: 08/28/17 09:42 Dose: 15 unit Insulin Glargine (Lantus) 7 unit SQ HS [facility] Last Admin: 08/27/17 22:59 Dose: 7 unit Insulin Human Lispro (Humalog) 0 unit SQ ACHS [facility] PRN Reason: Protocol Last Admin: 08/28/17 08:07 Dose: 4 unit Levetiracetam (Keppra) 500 mg PO BID [facility] Last Admin: 08/28/17 09:45 Dose: 500 mg Levothyroxine Sodium (Synthroid) 112 mcg PO QAMAC [facility] Last Admin: 08/28/17 08:05 Dose: 112 mcg Magnesium Hydroxide (Milk Of Magnesia) 30 ml PO DAILYP PRN PRN Reason: Constipation Last Admin: 08/23/17 15:10 Dose: 30 ml Metoclopramide HCl (Reglan) 5 mg PO BIDAC [facility] Last Admin: 08/28/17 08:06 Dose: 5 mg Ondansetron HCl (Zofran) 4 mg IV Q4HP PRN PRN Reason: Nausea And Vomiting Last Admin: 08/27/17 23:38 Dose: 4 mg Sevelamer Carbonate (Renvela) 800 mg PO TIDCC [facility] Sodium Chloride (Saline Flush) 10 ml IV Q8 [facility] Last Admin: 08/28/17 05:50 Dose: 10 ml Vancomycin HCl (Vancomycin Per Pharmacy) 1 order IV UD [facility] Medical - PN: A/P - Time Spent With Patient Total time spent is greater than 50% in coordination of care (as documented) at patient's floor/unit and/or counseling patient: - Narrative A/P Narrative: 71-year-old female with a history of congestive heart failure, chronic kidney disease, dementia presents with failure to thrive at home, found to have volume overload/congestive heart failure as well as acute hypoxic respiratory failure. Acute on chronic congestive heart failure, may be systolic and diastolic with mildly depressed systolic function EF 55% but also LVH. Stable Sunday. Net 1550 ml diuresis yesterday, net >5L since admit. Troponins were elevated but without change 0.18 range, suspect part of that is due to decreased renal function and decreased clearance. Plan: Continue PO Bumex, but may be close to euvolemia; might have to decrease dose. fluid removal also via HD< monitor, get CXR chest in AM Acute renal failure and chronic kidney disease stage III. Both BUN and creatinine are elevated, worsseing today. No real change with improvement of voluem status (Initially suspected cardiorenal). Tremor may be related to uremia. Plan: Dr Esparza following, HD started yesterday, another session planned today. Atrial fibrillation, paroxysmal, self limited for several hours on . Remains resolved. Currently atrially paced rhythm. Plan: Continue to monitor on telemetry, optimize electrolytes as needed. Pneumonia. Progressive right lower lobe consolidation, low-grade fevers consistent with superimposed pneumonia on top of congestive heart failure. Improving. Plan: Continue vancomycin and Zosyn for healthcare acquired pneumonia. Day #6 today, d/c antibiotics tomorrow. . Acute hypoxic respiratory failure. Status-post BiPAP tx. Initial chest film with volume overload, subsequently with progressive development of right lower lobe infiltrate suspect also pneumonia. Mostly on RA, occasional need for O2.. Plan: Supplemental oxygen as needed, antibiotics, diuresis Dementia. Patient appears to have trouble caring for herself at home since her discharge from skilled facility. Likely will insist on returning to home, though on Sunday may be more amenable to SNF. Plan: Supportive care, pediatric social worker consultation. Discharge planning noted her pharmacy was looking into dispensing blister packs to her. Type 2 diabetes mellitus. Plan: Continue controlled carbohydrate as well as low-sodium diet, continue with her Lantus at 15 units in the morning, 7 units at bedtime, sliding scale insulin, Accu-Cheks. Right carotid bruit. Has significant external carotid as well as 50% range internal carotid stenoses. Plan: Continue with Plavix and statin for now, may need surgical referral. History of cerebrovascular accident. Plan: Continue with Plavix and statin. History of seizure disorder, no current seizure activity. Plan: Continue with Keppra CODE STATUS is discussed with the patient, is DO NOT RESUSCITATE. Prophylaxis: Subcutaneous heparin. Medical - PN: Qual - VTE Deep Vein Thrombosis/Pulmonary Embolism Present on Admission: No
--- NOTE | 2017-08-28 14:57 | Nephrology Progress Note ---
Subjective Patient information: Note initiated : 08/28/17 at 2:55 pm Service Date, if different from initiated Date: [] Patient: Shanda Rhodes 71 y/o F admitted on 08/22/17 for Weakness/CHF, Renal Failure. Chief Complaint: [] Principal diagnosis: acute on chronic renal failure, pul edema Interval history: patient had a non tunneled dialysis cath inserted yesterday, could not put tunneled cathetor as pt was on plavix and heparin she later was initiated on dialysis she had brief period of hypotension during dialysis but this resolved with 100cc IV F no further episodes of hypotension pt c/o involuntary tremors she has no SOB, CP no edema no other concerns Pertinent ROS: as above Objective - Vital Signs Vital signs: Vital Signs Temp Pulse Pulse Resp BP Pulse Ox 08/28/17 14:23 60 169/67 08/28/17 13:53 60 168/64 08/28/17 13:22 61 159/64 08/28/17 12:53 60 165/67 08/28/17 12:42 97.1 F 60 165/65 08/28/17 12:00 97.1 F 60 18 165/67 93 08/28/17 08:01 97.8 F 168/60 08/28/17 07:08 93 08/28/17 07:01 158/71 96 08/28/17 07:00 99 08/28/17 06:30 91 08/28/17 06:01 145/64 95 08/28/17 06:00 96 08/28/17 05:30 95 08/28/17 05:01 152/60 92 08/28/17 05:00 94 08/28/17 04:30 94 08/28/17 04:01 142/60 08/28/17 04:00 98.8 F 20 142/60 95 08/28/17 03:01 146/57 08/28/17 02:01 138/56 100 08/28/17 01:30 97 08/28/17 01:01 138/55 96 08/28/17 01:00 98 08/28/17 00:30 98 08/28/17 00:01 140/58 99 08/28/17 00:00 99.8 F H 22 140/58 100 08/27/17 23:30 100 02/05/18 23:01 141/58 98 08/27/17 23:00 100 08/27/17 22:30 100 08/27/17 22:01 139/67 96 08/27/17 22:00 97 08/27/17 21:01 146/66 08/27/17 20:21 147/67 100 08/27/17 20:16 132/70 99 08/27/17 20:03 96.4 F L 61 114/65 99 08/27/17 20:00 60 96 08/27/17 19:54 89 114/65 08/27/17 19:45 112/66 98 08/27/17 19:40 97.6 F 12 100/57 97 08/27/17 19:37 93 H 112/66 08/27/17 19:31 74/45 99 08/27/17 19:30 100 08/27/17 19:28 91 H 74/45 08/27/17 19:19 86/61 08/27/17 19:18 68/52 08/27/17 19:16 80/47 08/27/17 19:07 87 86/61 08/27/17 19:01 90 100/57 08/27/17 18:58 97.6 F 96 H 104/64 08/27/17 18:55 104/64 08/27/17 16:00 97.8 F 89 18 141/75 100 Intake and Output 08/28/17 08/28/17 08/28/17 05:59 13:59 21:59 Intake Total 50 / 50 290 / 290 Output Total 325 / 325 Balance -275 / -275 290 / 290 Intake: IV 50 / 50 50 / 50 Zosyn 2.25 gm In Dextrose 5% in 50 / 50 50 / 50 Water 50 ml @ 100 mls/hr IV Q8H [facility] Rx#:[id number] Oral 240 / 240 Output: Urine Catheter Amount 325 / 325 Other: Meal Breakfast Percent of Meal Consumed 100% Feeding Ability Assist with Tray Set Up Weight 147 lb Intake & Output: Intake & Output 08/28/17 08/28/17 08/28/17 05:59 13:59 21:59 Intake Total 50 / 50 290 / 290 Output Total 325 / 325 Balance -275 / -275 290 / 290 Weight 147 lb Intake: IV 50 / 50 50 / 50 Zosyn 2.25 gm In Dextrose 5% in 50 / 50 50 / 50 Water 50 ml @ 100 mls/hr IV Q8H [facility] Rx#:[id number] Oral 240 / 240 Output: Urine Catheter Amount 325 / 325 Other: Meal Breakfast Percent of Meal Consumed 100% Feeding Ability Assist with Tray Set Up - General Appearance General appearance: appears started age, chronically ill, frail EENT: mucous membranes moist Neck: no JVD Respiratory: clear Cardiology: no rub, no edema, normal S1, normal S2 Gastrointestinal: no tenderness, no guarding Integumentary: no rash, warm and dry Neurologic: alert and oriented x3 Musculoskeletal: no erythema, no cyanosis Psychiatric: mood/affect appropriate - Lab 08/28/17 03:40 08/28/17 03:40 Most recent lab results Calcium 8.4 mg/dl (8.6-10.4) L 08/28/17 03:40 Phosphorus 3.1 mg/dL (2.7-4.5) 08/28/17 03:40 Magnesium 2.2 mg/dL (1.6-2.5) 08/28/17 03:40 Assessment and Plan (1) Acute on chronic renal failure s.creat 3.1, BUN 58, was dialysed last night ? 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 and HTN with h/o nephrotic range proteinuria non oliguric no K issues, mild acidosis started on bicarb supplement Patient has flapping tremors, persistent CHF despite diuresis, steadily worsening renal function, discussed dialysis again, she and her family agrees, discussed risk and benefit including risk of procedure at length she does have significant anemia from iron deficiency and CKD pneumonia on antibiotics plan to continue with dialysis, today for 2.5hrs using revaclear 300 dialyser, 3K/2.5Ca dialysate, UF GOAL OF 0.5l cannot achieve target QB with non tunneled cath, plan is to change this on Sunday plavix on hold and will hold heparin night before will d/c sodium bicarb as now initiated on dialysis will also reduce gabapentin dose given her tremors will ct with venofer last dose today and will initiate aranesp then if Hb remains low will add nepro given albumin trend I have changed her phoslo to sevelamer given risk of increased vascular calcification with calcium based binders continue spirometry dose meds to HD Will follow along Appreciate hospitalist help in managing this patient Status: Acute (2) Anemia Status: Acute (3) CHF (congestive heart failure) Status: Acute
[2017-08-28] MEDS: SEVELAMER 800 MG TABLET PO SCH ×2 (15:21→17:16)
[2017-08-28] MEDS ORDERED: GABAPENTIN 100 MG CAPSULE PO SCH (21:00)
[2017-08-28] MEDS ORDERED: FAMOTIDINE 20 MG TABLET PO SCH (21:00)
[2017-08-29] MEDS: PIPERACILLIN SODIUM/TAZOBACTAM 2.25 GM in DEXTROSE 5% IN WATER 50 ML IV SCH ×2 (05:34→17:32)
[2017-08-29] MEDS: 0.9 % SODIUM CHLORIDE 10 ML SYRINGE IV SCH ×3 (06:03→21:14)
[2017-08-29 06:06] LABS: Blood Urea Nitrogen 32 mg/dl (8-23)
--- NOTE | 2017-08-29 06:50 | XRay Report ---
CLINICAL INFORMATION: CHF COMPARISON: 08/27/2017 FINDINGS: Moderate cardiomegaly is unchanged. A right IJ double-lumen catheter has been placed - the tip overlies the SVC last right atrial junction. No pneumothorax or other complication from catheter placement. Pacemaker and leads in stable satisfactory position. Mediastinum is normal. The pulmonary vessels have returned to normal caliber on the left, but they remain mildly distended on the right. This may be related to right decubitus positioning. Interstitial edema has cleared. Moderate patchy right basilar infiltrate and small effusion are unchanged IMPRESSION: 1. Near complete resolution in CHF. 2. Moderate patchy right basilar infiltrate and small effusion - unchanged Interpreted and Authenticated by: Pradeep Martines 08/29/17
[2017-08-29] MEDS: LEVOTHYROXINE SODIUM 112 MCG TABLET PO SCH (07:42)
[2017-08-29] MEDS: BUMETANIDE 1 MG TABLET PO SCH ×2 (07:43→18:09)
[2017-08-29] MEDS: levETIRAcetam 500 MG TABLET PO SCH ×2 (07:43→21:13)
[2017-08-29] MEDS: INSULIN GLARGINE, HUMAN 1 UNIT/0.01 ML SQ SCH ×2 (08:09→21:15)
[2017-08-29] MEDS: cloNIDine HCL 0.1 MG TABLET PO SCH ×3 (08:10→21:14)
[2017-08-29] MEDS: SEVELAMER 800 MG TABLET PO SCH ×3 (08:10→18:06)
[2017-08-29] MEDS: FERROUS SULFATE 325 MG TABLET PO SCH ×2 (08:10→18:06)
[2017-08-29] MEDS: CARVEDILOL 12.5 MG TABLET PO SCH ×2 (08:10→18:06)
[2017-08-29] MEDS: amLODIPine 10 MG TABLET PO SCH ×2 (08:10→21:15)
[2017-08-29] MEDS: INSULIN LISPRO 1 UNIT/0.01 ML UNIT SQ SCH ×4 (08:11→21:26)
[2017-08-29] MEDS ORDERED: VANCOMYCIN PER PHARMACY IV SCH (09:52)
[2017-08-29] MEDS ORDERED: ONDANSETRON 4 MG/2 ML VIAL IV PRN (09:52)
[2017-08-29] MEDS ORDERED: DEXTROSE 31 GM ORAL.SUSP PO PRN (09:52)
[2017-08-29] MEDS ORDERED: MAGNESIUM HYDROXIDE 30 ML ORAL.SUSP PO PRN (09:52)
[2017-08-29] MEDS ORDERED: DEXTROSE 50% 50 ML VIAL IV PRN (09:52)
--- NOTE | 2017-08-29 11:04 | Nephrology Progress Note ---
Subjective Patient information: Note initiated : 08/29/17 at 10:33 am Service Date, if different from initiated Date: [] Patient: Shanda Rhodes 71 y/o F admitted on 08/22/17 for Weakness/CHF, Renal Failure. Chief Complaint: [] Principal diagnosis: acute on chronic renal failure, pul edema Objective - Vital Signs Vital signs: Vital Signs Temp Pulse Pulse Resp BP Pulse Ox 08/29/17 08:00 66 92 08/29/17 07:30 99.7 F H 16 151/57 92 08/29/17 07:00 100 08/29/17 06:30 100 08/29/17 06:00 96 08/29/17 05:30 97 08/29/17 05:00 98 08/29/17 04:30 95 08/29/17 04:27 138/85 93 08/29/17 04:00 98.9 F 61 20 138/85 96 08/29/17 02:30 96 08/29/17 02:01 151/58 94 08/29/17 02:00 94 08/29/17 01:30 96 08/29/17 01:00 95 08/29/17 00:30 96 08/29/17 00:00 95 08/28/17 23:58 150/59 94 08/28/17 23:54 99.2 F H 60 25 H 150/59 96 08/28/17 21:30 99 08/28/17 21:00 99 08/28/17 20:30 100 08/28/17 20:00 98.8 F 60 66 16 150/56 95 08/28/17 19:53 150/56 08/28/17 17:00 100 08/28/17 16:01 86 L 08/28/17 16:00 98.6 F 101 H 18 138/70 85 L 08/28/17 15:31 126/73 90 08/28/17 15:30 92 08/28/17 15:17 141/77 88 L 08/28/17 15:10 140/107 92 08/28/17 15:01 159/70 87 L 08/28/17 15:00 96.4 F L 62 140/107 89 L 08/28/17 14:54 60 159/70 08/28/17 14:31 169/67 02/06/18 14:23 60 169/67 02/06/18 14:01 168/64 86 L 08/28/17 14:00 88 L 08/28/17 13:53 60 168/64 08/28/17 13:31 159/64 92 08/28/17 13:30 90 08/28/17 13:22 61 159/64 08/28/17 13:01 165/67 08/28/17 12:53 60 165/67 08/28/17 12:42 97.1 F 60 165/65 08/28/17 12:00 97.1 F 60 18 165/67 93 Intake and Output 08/28/17 08/29/17 08/29/17 21:59 05:59 13:59 Intake Total 290 / 290 630 / 630 50 / 50 Output Total 725 / 725 875 / 875 Balance -435 / -435 -245 / -245 50 / 50 Intake: IV 50 / 50 50 / 50 50 / 50 Zosyn 2.25 gm In Dextrose 5% in 50 / 50 50 / 50 50 / 50 Water 50 ml @ 100 mls/hr IV Q8H [facility] Rx#:[id number] Oral 240 / 240 580 / 580 Output: Urine Catheter Amount 625 / 625 875 / 875 Hemodialysis UF 100 / 100 Other: Meal Dinner Percent of Meal Consumed 100% # Bowel Movements 1 # of times incontinent of 1 Bowels Weight 144 lb 11.2 oz 144 lb 11.2 oz Intake & Output: Intake & Output 08/28/17 08/29/17 08/29/17 21:59 05:59 13:59 Intake Total 290 / 290 630 / 630 50 / 50 Output Total 725 / 725 875 / 875 Balance -435 / -435 -245 / -245 50 / 50 Weight 144 lb 11.2 oz 144 lb 11.2 oz Intake: IV 50 / 50 50 / 50 50 / 50 Zosyn 2.25 gm In Dextrose 5% in 50 / 50 50 / 50 50 / 50 Water 50 ml @ 100 mls/hr IV Q8H [facility] Rx#:[id number] Oral 240 / 240 580 / 580 Output: Urine Catheter Amount 625 / 625 875 / 875 Hemodialysis UF 100 / 100 Other: Meal Dinner Percent of Meal Consumed 100% # Bowel Movements 1 # of times incontinent of 1 Bowels - Lab 08/28/17 03:40 08/29/17 03:46 Most recent lab results Calcium 8.5 mg/dl (8.6-10.4) L 08/29/17 03:46 Phosphorus 3.1 mg/dL (2.7-4.5) 08/28/17 03:40 Magnesium 2.2 mg/dL (1.6-2.5) 08/28/17 03:40 Assessment and Plan (1) Acute on chronic renal failure s.creat 3.1, BUN 58, was dialysed last night ? 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 and HTN with h/o nephrotic range proteinuria non oliguric no K issues, mild acidosis started on bicarb supplement Patient has flapping tremors, persistent CHF despite diuresis, steadily worsening renal function, discussed dialysis again, she and her family agrees, discussed risk and benefit including risk of procedure at length she does have significant anemia from iron deficiency and CKD pneumonia on antibiotics plan to continue with dialysis, today for 2.5hrs using revaclear 300 dialyser, 3K/2.5Ca dialysate, UF GOAL OF 0.5l cannot achieve target QB with non tunneled cath, plan is to change this on Sunday plavix on hold and will hold heparin night before will d/c sodium bicarb as now initiated on dialysis will also reduce gabapentin dose given her tremors will ct with venofer last dose today and will initiate aranesp then if Hb remains low will add nepro given albumin trend I have changed her phoslo to sevelamer given risk of increased vascular calcification with calcium based binders continue spirometry dose meds to HD Will follow along Appreciate hospitalist help in managing this patient Status: Acute (2) Anemia Status: Acute (3) CHF (congestive heart failure) Status: Acute
--- NOTE | 2017-08-29 12:33 | Internal Med Progress Note ---
Medical - PN: Subj Patient information: Note initiated : 08/29/17 at 12:30 pm Service Date, if different from initiated Date: [] Patient: Shanda Rhodes a 71 y/o F admitted on 08/22/17 for Weakness/CHF, Renal Failure. Chief Complaint: [] Interval history: 08/22 Ms. Rhodes is a 71 year old F He presents from home with progressive failure to thrive. Patient has underlying dementia, stage III chronic kidney disease, type 2 diabetes, congestive heart failure. History is obtained speaking to the patient, as well as history obtained from the daughter which was relayed by Dr. carrasco from the ED, as well as reviewing her extensive record. She was in the [facility] facility up until about a week ago after a left fibular fracture, which was treated at [facility]. Since she's returned home, it's unclear if she is taking her medications correctly. Her daughter states many of her blister packs or spread about, she appears to have missed doses, and there is concern she may been using medications from prior medical regimens. Patient currently complains of just not feeling well, of her legs getting worse and becoming painful from her neuropathy, she is also complaining of throbbing in her mid chest. She also states her abdomen is aching at times, she's had intermittent nausea, no emesis , no diarrhea. She's had normal urine output is not felt any dysuria. She's had some headache, no sore throat, no fever. Her glucoses have been low and high, she did not eat last night, she states that she couldn't find food at home. The patient is describing some "throbbing" discomfort in her mid chest which waxes and wanes, it's not associated with dyspnea, magali, does not radiate. It does not appear to be exertional. she denies any cough or sputum production, no pleuritic chest pain. No orthopnea. She is complaining of pain in her feet with some swelling, she attributes the pain to worsening of her neuropathy. In the emergency department, patient's found to be hypoxic with room air saturation in the 80s, requiring 5 L nasal cannula to maintain normoxia. She has evidence of volume overload on exam and on chest radiograph is being admitted for acute congestive heart failure. In addition she has worsening of her baseline chronic kidney disease. 08/23 Initially seen in the midafternoon. At that point her breathing was improved, overall she felt she was feeling somewhat better. Not much response to 40 mg twice daily Lasix. Around dinner, patient was more lethargic, difficult to arouse, requiring facemask to maintain her oxygenation. ABG showed her hypoxic respiratory failure. Chest radiograph from earlier in the day showed increasing right lower lobe consolidation. She did have low-grade fevers today as well. Moved to the ICU, started on BiPAP and antibiotics. 08/24-Seen in the early afternoon. Much more alert than last evening. Tolerated BiPAP overnight, was off of BiPAP all day today. Urine output picking up with higher doses of furosemide. Remains quite weak overall. When and atrial fibrillation in late morning, is rate controlled, spontaneously cardioverted later in the day. 08/25-continues to feel improved. Sitting up eating breakfast. Dyspnea is improved. No chest pain, no cough or sputum production. Appetite is improved. Remains in normal sinus rhythm/atrial paced rhythm 08/26-in good spirits this morning, seen during breakfast. Sitting up eating, conversant. No dyspnea. Later was ambulating with PT with minimal dyspnea. No chest pain. Edema is improving. No cough or sputum production. Appetite good. 08/27-sleeping soundly in midmorning I see her. Been up earlier with breakfast. Was complaining of some tremor when she was starting to walk with her walker. Respiratory status is stable, renal function has not recovered with treatment of pneumonia and heart failure. Denies any dyspnea, no nausea or vomiting. Appetite is good. Transition to by mouth diuretics yesterday. Was seen by Dr. Esparza earlier, patient has discussed dialysis with all of her children, this point if needed she would like to pursue dialysis. 08/28: Patient seen examined, some nausea there, but was able to eat a good breakfast, started on HD yesterday, and toelated it well, had no other complaints. 08/29 Patient seen examined, has no acute concerns, sitting in bed comfortably, tolerating HD well, just upset that she ended on HD. Her x ray shows persistent pna, she still has low grade temp, but CHF is resolved. she remains on antibiotics plan to get blood cx today. Pertinent ROS: Denies headache, dizziness Denies chest pain, palpitations Denies cough or shortness of breath Denies abdominal pain, nausea or vomiting. - Constitutional Vitals: Vital Signs Temp Pulse Resp BP Pulse Ox 96.7 F L 60 16 155/68 92 08/29/17 12:20 08/29/17 12:20 08/29/17 07:30 08/29/17 12:20 08/29/17 08:00 Period Temp Pulse Resp BP Sys/Courtney Pulse Ox Last 24 Hr 96.4 F-99.7 F 60-101 16-25 126-169/56-107 85-100 Intake and Output 08/28/17 08/29/17 08/29/17 21:59 05:59 13:59 Intake Total 290 / 290 630 / 630 50 / 50 Output Total 725 / 725 875 / 875 Balance -435 / -435 -245 / -245 50 / 50 Weight 144 lb 11.2 oz 144 lb 11.2 oz Intake & Output: Intake & Output 08/28/17 08/29/17 08/29/17 21:59 05:59 13:59 Intake Total 290 / 290 630 / 630 50 / 50 Output Total 725 / 725 875 / 875 Balance -435 / -435 -245 / -245 50 / 50 Weight 144 lb 11.2 oz 144 lb 11.2 oz Intake: IV 50 / 50 50 / 50 50 / 50 Zosyn 2.25 gm In Dextrose 5% in 50 / 50 50 / 50 50 / 50 Water 50 ml @ 100 mls/hr IV Q8H [facility] Rx#:[id number] Oral 240 / 240 580 / 580 Output: Urine Catheter Amount 625 / 625 875 / 875 Hemodialysis UF 100 / 100 Other: Meal Dinner Percent of Meal Consumed 100% # Bowel Movements 1 # of times incontinent of 1 Bowels Exam: Constitutional; Afebrile, cooperative, alert, not in distress. Eyes- No icterus, , No periorbital swelling Ears- Ext ear normal, hearing normal to conversation. Neck- Midline trachea, supple Respiratory system: Air Entry equal on both sides,, mild right basilar crackles. CVS- Rate rhythm regular, S1,S2 heard, no gallop, no rub. 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 Medical - PN: Obj Da - Labs CBC & Chem 7: 08/28/17 03:40 08/29/17 03:46 Labs: Abnormal Lab Results 08/29/17 08/28/17 08/28/17 03:46 03:40 03:40 RBC 2.65 L Hgb 8.1 L Hct 24.5 L Lymphocytes % 11 L Anisocytosis 1+ A RBC Fragments Few A APTT Chloride BUN 32 H 58 H Creatinine 2.4 H 3.1 H Glucose 184 H 185 H Calcium 8.5 L 8.4 L GGT 61 H 08/27/17 08/27/17 13:17 07:41 RBC Hgb Hct Lymphocytes % Anisocytosis RBC Fragments APTT 42 H Chloride 94 L BUN 93 H Creatinine 4.1 H Glucose Calcium GGT Meds: Medications Acetaminophen (Tylenol) 650 mg PO Q6HP PRN PRN Reason: PAIN/FEVER > 101 Hydrocodone Bitart/Acetaminophen ([place] 7.5/325mg) 0.5 tab PO Q6HP PRN PRN Reason: Pain Amlodipine Besylate (Norvasc) 10 mg PO BID [facility] Bumetanide (Bumex) 1 mg PO BIDD [facility] Carvedilol (Coreg) 25 mg PO BIDCC [facility] Clonidine HCl (Catapres) 0.1 mg PO TID [facility] Dextrose (Dextrose 50%) 0 ml IV UD PRN PRN Reason: Hypoglycemia Diagnostic Test (Pha) (Accu-Chek) 1 each FS ACHS [facility] Docusate Sodium (Colace) 100 mg PO BID [facility] Famotidine (Pepcid) 20 mg PO HS [facility] Ferrous Sulfate (Ferrous Sulfate) 325 mg PO BIDCC [facility] Gabapentin (Neurontin) 100 mg PO HS [facility] Glucose (Insta-Glucose) 15 gm PO PRN PRN PRN Reason: Hypoglycemia Heparin Sodium (Porcine) (Heparin) 5,000 unit SQ Q12 [facility] Piperacillin Sod/Tazobactam (Sod 2.25 gm/ Dextrose) 50 mls @ 100 mls/hr IV Q8H [facility] Insulin Glargine (Lantus) 15 unit SQ DAILY [facility] Insulin Glargine (Lantus) 7 unit SQ HS [facility] Insulin Human Lispro (Humalog) 0 unit SQ ACHS [facility] PRN Reason: Protocol Levetiracetam (Keppra) 500 mg PO BID [facility] Levothyroxine Sodium (Synthroid) 112 mcg PO QAMAC [facility] Magnesium Hydroxide (Milk Of Magnesia) 30 ml PO DAILYP PRN PRN Reason: Constipation Ondansetron HCl (Zofran) 4 mg IV Q4HP PRN PRN Reason: Nausea And Vomiting Sevelamer Carbonate (Renvela) 800 mg PO TIDCC [facility] Sodium Chloride (Saline Flush) 10 ml IV Q8 [facility] Vancomycin HCl (Vancomycin Per Pharmacy) 1 order IV UD [facility] Medical - PN: A/P - Time Spent With Patient Total time spent is greater than 50% in coordination of care (as documented) at patient's floor/unit and/or counseling patient: - Narrative A/P Narrative: 71-year-old female with a history of congestive heart failure, chronic kidney disease, dementia presents with failure to thrive at home, found to have volume overload/congestive heart failure as well as acute hypoxic respiratory failure. Acute on chronic congestive heart failure, may be systolic and diastolic with mildly depressed systolic function EF 55% but also LVH. Stable Sunday. Net 1550 ml diuresis yesterday, net >5L since admit. Troponins were elevated but without change 0.18 range, suspect part of that is due to decreased renal function and decreased clearance. Plan: Continue PO Bumex,. fluid removal also via HD< monitor, get CXR shows resolution of chf today. Acute renal failure and chronic kidney disease stage III. Plan: Dr Esparza following, HD started management as per nephrology Atrial fibrillation, paroxysmal, self limited for several hours on . Remains resolved. Currently atrially paced rhythm. Plan: Continue to monitor on telemetry, optimize electrolytes as needed. Pneumonia. Progressive right lower lobe consolidation, low-grade fevers consistent with superimposed pneumonia on top of congestive heart failure. Improving. Plan: Continue vancomycin and Zosyn for healthcare acquired pneumonia. Day #7 today, continue abx in light of low grade fever, monitor, check procalcitonin in AM, get blood cx today. if all neg, d/c abx tomorrow. Acute hypoxic respiratory failure. Status-post BiPAP tx. Initial chest film with volume overload, subsequently with progressive development of right lower lobe infiltrate suspect also pneumonia. Mostly on RA, occasional need for O2.. Plan: Supplemental oxygen as needed, antibiotics, diuresis Dementia. Patient appears to have trouble caring for herself at home since her discharge from skilled facility. Likely will insist on returning to home, though on Sunday may be more amenable to SNF. Plan: Supportive care, social media marketer consultation. Discharge planning noted her pharmacy was looking into dispensing blister packs to her. Type 2 diabetes mellitus. Plan: Continue controlled carbohydrate as well as low-sodium diet, continue with her Lantus at 15 units in the morning, 7 units at bedtime, sliding scale insulin, Accu-Cheks. Right carotid bruit. Has significant external carotid as well as 50% range internal carotid stenoses. Plan: Continue with Plavix and statin for now, may need surgical referral. History of cerebrovascular accident. Plan: Continue with Plavix and statin. History of seizure disorder, no current seizure activity. Plan: Continue with Keppra CODE STATUS is discussed with the patient, is DO NOT RESUSCITATE. Prophylaxis: Subcutaneous heparin. Medical - PN: Qual - VTE Deep Vein Thrombosis/Pulmonary Embolism Present on Admission: No
--- NOTE | 2017-08-29 16:26 | Nephrology Progress Note ---
Subjective Patient information: Note initiated : 08/29/17 at 4:24 pm Service Date, if different from initiated Date: [] Patient: Shanda Rhodes 71 y/o F admitted on 08/22/17 for Weakness/CHF, Renal Failure. Chief Complaint: [] Principal diagnosis: acute on chronic renal failure, pul edema Interval history: no overnight events tremors a little better no SOB, CP no nausea, vomiting no edema tolerating dialysis with no issues plan for TCC on sunday Pertinent ROS: as above Objective - Vital Signs Vital signs: Vital Signs Temp Pulse Pulse Resp BP Pulse Ox 08/29/17 15:37 97.8 F 60 163/76 08/29/17 15:16 61 164/76 08/29/17 14:51 60 163/79 08/29/17 14:20 60 157/75 08/29/17 13:47 60 159/73 08/29/17 13:17 62 144/67 08/29/17 12:47 60 136/62 08/29/17 12:20 96.7 F L 60 155/68 08/29/17 12:00 97.8 F 62 16 139/62 93 08/29/17 08:00 66 92 08/29/17 07:30 99.7 F H 16 151/57 92 08/29/17 07:00 100 08/29/17 06:30 100 08/29/17 06:00 96 08/29/17 05:30 97 08/29/17 05:00 98 08/29/17 04:30 95 08/29/17 04:27 138/85 93 08/29/17 04:00 98.9 F 61 20 138/85 96 08/29/17 02:30 96 08/29/17 02:01 151/58 94 08/29/17 02:00 94 08/29/17 01:30 96 08/29/17 01:00 95 08/29/17 00:30 96 08/29/17 00:00 95 08/28/17 23:58 150/59 94 08/28/17 23:54 99.2 F H 60 25 H 150/59 96 08/28/17 21:30 99 08/28/17 21:00 99 08/28/17 20:30 100 08/28/17 20:00 98.8 F 60 66 16 150/56 95 08/28/17 19:53 150/56 08/28/17 17:00 100 Intake and Output 08/29/17 08/29/17 08/29/17 05:59 13:59 21:59 Intake Total 630 / 630 50 / 50 Output Total 875 / 875 1999 Balance -245 / -245 50 / 50 -1999 Intake: IV 50 / 50 50 / 50 Zosyn 2.25 gm In Dextrose 5% in 50 / 50 50 / 50 Water 50 ml @ 100 mls/hr IV Q8H [facility] Rx#:[id number] Oral 580 / 580 Output: Urine Catheter Amount 875 / 875 Hemodialysis UF 1999 Other: Weight 144 lb 11.2 oz Intake & Output: Intake & Output 08/29/17 08/29/17 08/29/17 05:59 13:59 21:59 Intake Total 630 / 630 50 / 50 Output Total 875 / 875 1999 Balance -245 / -245 50 / 50 -1999 Weight 144 lb 11.2 oz Intake: IV 50 / 50 50 / 50 Zosyn 2.25 gm In Dextrose 5% in 50 / 50 50 / 50 Water 50 ml @ 100 mls/hr IV Q8H [facility] Rx#:[id number] Oral 580 / 580 Output: Urine Catheter Amount 875 / 875 Hemodialysis UF 1999 - General Appearance General appearance: appears started age, chronically ill EENT: mucous membranes moist Neck: no JVD Respiratory: clear Cardiology: no rub, no edema, normal S1, normal S2 Gastrointestinal: no tenderness, no guarding Integumentary: no rash, warm and dry Neurologic: alert and oriented x3 Musculoskeletal: no erythema, no cyanosis Psychiatric: mood/affect appropriate - Lab 08/28/17 03:40 08/29/17 03:46 Most recent lab results Calcium 8.5 mg/dl (8.6-10.4) L 08/29/17 03:46 Phosphorus 3.1 mg/dL (2.7-4.5) 08/28/17 03:40 Magnesium 2.2 mg/dL (1.6-2.5) 08/28/17 03:40 Assessment and Plan (1) Acute on chronic renal failure s.creat 2.0, dialysed for 2 days ? 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 and HTN with h/o nephrotic range proteinuria non oliguric no K issues, mild acidosis started on bicarb supplement Patient has flapping tremors, persistent CHF despite diuresis, steadily worsening renal function, discussed dialysis again, she and her family agrees, discussed risk and benefit including risk of procedure at length she does have significant anemia from iron deficiency and CKD pneumonia on antibiotics plan to continue with dialysis, today for 3.5hrs using revaclear 400 dialyser, 3K/2.5Ca dialysate, UF GOAL OF 1-2L as tolerated cannot achieve target QB with non tunneled cath, plan is to change this on Sunday plavix on hold and will hold heparin night before continue spirometry dose meds to HD Will follow along Appreciate hospitalist help in managing this patient Status: Acute (2) Anemia Status: Acute (3) CHF (congestive heart failure) Status: Acute
[2017-08-29] MEDS: HEPARIN 5,000 UNIT/ML VIAL SQ SCH ×3 (17:41→22:09)
[2017-08-29] MEDS ORDERED: INSULIN GLARGINE, HUMAN 1 UNIT/0.01 ML SQ SCH (21:00)
[2017-08-29] MEDS: GABAPENTIN 100 MG CAPSULE PO SCH (21:13)
[2017-08-29] MEDS: DOCUSATE SODIUM 100 MG CAPSULE PO SCH ×2 (21:14→22:07)
[2017-08-29] MEDS: FAMOTIDINE 20 MG TABLET PO SCH (21:15)
[2017-08-29] MEDS: ACETAMINOPHEN 325 MG TABLET PO PRN (21:35)
[2017-08-30] MEDS: PIPERACILLIN SODIUM/TAZOBACTAM 2.25 GM in DEXTROSE 5% IN WATER 50 ML IV SCH ×2 (00:13→05:31)
[2017-08-30] MEDS: ACETAMINOPHEN 325 MG TABLET PO PRN ×3 (03:41→21:49)
[2017-08-30 04:40] LABS: Basophils # (Auto) 0.1 K/mcL (0.0-0.3); Basophils % (Auto) 0.6 % (0.0-2.0); Eosinophils # (Auto) 0.5 K/mcL (0.0-0.7); Eosinophils % (Auto) 5.5 % (0.0-7.0); Granulocytes % (Auto) 75.7 % (38.0-78.0); Lymphocytes % (Auto) 11.2 % (15.5-49.0); Mean Cell Volume 92.5 fL (80.0-100.0); Mean Corpuscular HGB Conc 34.2 g/dL (31.0-36.0); Mean Corpuscular Hemoglobin 31.7 pg (26.0-34.0); Monocytes # (Auto) 0.6 K/mcL (0.1-0.9); Platelet Count 299 K/mcL (140-440); RBC 3.16 M/mcL (4.00-5.20); Red Cell Distribution Width 13.9 % (11.5-14.5)
[2017-08-30 04:49] LABS: ALT/SGPT 13 U/l (0-40); Albumin 3.7 gm/dL (3.2-5.2); Albumin/Globulin Ratio 1.1 (1.0-2.3); Alkaline Phosphatase 114 U/L (39-117); Bilirubin,Direct < 0.2 mg/dL (0.0-0.3); Blood Urea Nitrogen 14 mg/dl (8-23); Gamma Glutamyl Transpeptidase 68 U/L (5-36); Uric Acid 2.3 mg/dL (2.5-8.0)
[2017-08-30] MEDS: 0.9 % SODIUM CHLORIDE 10 ML SYRINGE IV SCH ×3 (05:31→21:46)
[2017-08-30] MEDS: LEVOTHYROXINE SODIUM 112 MCG TABLET PO SCH (07:38)
[2017-08-30] MEDS: SEVELAMER 800 MG TABLET PO SCH ×3 (08:58→18:44)
[2017-08-30] MEDS: BUMETANIDE 1 MG TABLET PO SCH ×2 (08:58→15:22)
[2017-08-30] MEDS: CARVEDILOL 12.5 MG TABLET PO SCH ×2 (09:01→18:45)
[2017-08-30] MEDS: amLODIPine 10 MG TABLET PO SCH ×2 (09:02→21:45)
[2017-08-30] MEDS: FERROUS SULFATE 325 MG TABLET PO SCH ×2 (09:02→18:45)
[2017-08-30] MEDS: cloNIDine HCL 0.1 MG TABLET PO SCH ×3 (09:02→21:44)
[2017-08-30] MEDS: levETIRAcetam 500 MG TABLET PO SCH ×2 (09:02→21:45)
[2017-08-30] MEDS: DOCUSATE SODIUM 100 MG CAPSULE PO SCH ×2 (09:03→21:44)
[2017-08-30] MEDS ORDERED: VANCOMYCIN 1,000 MG in 0.9 % SODIUM CHLORIDE 250 ML IV ONE (10:00)
[2017-08-30] MEDS: INSULIN LISPRO 1 UNIT/0.01 ML UNIT SQ SCH ×4 (10:08→21:45)
[2017-08-30] MEDS: HEPARIN 5,000 UNIT/ML VIAL SQ SCH ×2 (10:09→21:46)
[2017-08-30] MEDS: INSULIN GLARGINE, HUMAN 1 UNIT/0.01 ML SQ SCH ×2 (10:54→21:45)
--- NOTE | 2017-08-30 12:16 | Internal Med Progress Note ---
Medical - PN: Subj Patient information: Note initiated : 08/30/17 at 12:10 pm Service Date, if different from initiated Date: [] Patient: Shanda Rhodes a 71 y/o F admitted on 08/22/17 for Weakness/CHF, Renal Failure. Chief Complaint: [] Interval history: 08/22 Ms. Rhodes is a 71 year old F He presents from home with progressive failure to thrive. Patient has underlying dementia, stage III chronic kidney disease, type 2 diabetes, congestive heart failure. History is obtained speaking to the patient, as well as history obtained from the daughter which was relayed by Dr. carrasco from the ED, as well as reviewing her extensive record. She was in the [facility] facility up until about a week ago after a left fibular fracture, which was treated at [facility]. Since she's returned home, it's unclear if she is taking her medications correctly. Her daughter states many of her blister packs or spread about, she appears to have missed doses, and there is concern she may been using medications from prior medical regimens. Patient currently complains of just not feeling well, of her legs getting worse and becoming painful from her neuropathy, she is also complaining of throbbing in her mid chest. She also states her abdomen is aching at times, she's had intermittent nausea, no emesis , no diarrhea. She's had normal urine output is not felt any dysuria. She's had some headache, no sore throat, no fever. Her glucoses have been low and high, she did not eat last night, she states that she couldn't find food at home. The patient is describing some "throbbing" discomfort in her mid chest which waxes and wanes, it's not associated with dyspnea, magali, does not radiate. It does not appear to be exertional. she denies any cough or sputum production, no pleuritic chest pain. No orthopnea. She is complaining of pain in her feet with some swelling, she attributes the pain to worsening of her neuropathy. In the emergency department, patient's found to be hypoxic with room air saturation in the 80s, requiring 5 L nasal cannula to maintain normoxia. She has evidence of volume overload on exam and on chest radiograph is being admitted for acute congestive heart failure. In addition she has worsening of her baseline chronic kidney disease. 08/23 Initially seen in the midafternoon. At that point her breathing was improved, overall she felt she was feeling somewhat better. Not much response to 40 mg twice daily Lasix. Around dinner, patient was more lethargic, difficult to arouse, requiring facemask to maintain her oxygenation. ABG showed her hypoxic respiratory failure. Chest radiograph from earlier in the day showed increasing right lower lobe consolidation. She did have low-grade fevers today as well. Moved to the ICU, started on BiPAP and antibiotics. 08/24-Seen in the early afternoon. Much more alert than last evening. Tolerated BiPAP overnight, was off of BiPAP all day today. Urine output picking up with higher doses of furosemide. Remains quite weak overall. When and atrial fibrillation in late morning, is rate controlled, spontaneously cardioverted later in the day. 08/25-continues to feel improved. Sitting up eating breakfast. Dyspnea is improved. No chest pain, no cough or sputum production. Appetite is improved. Remains in normal sinus rhythm/atrial paced rhythm 08/26-in good spirits this morning, seen during breakfast. Sitting up eating, conversant. No dyspnea. Later was ambulating with PT with minimal dyspnea. No chest pain. Edema is improving. No cough or sputum production. Appetite good. 08/27-sleeping soundly in midmorning I see her. Been up earlier with breakfast. Was complaining of some tremor when she was starting to walk with her walker. Respiratory status is stable, renal function has not recovered with treatment of pneumonia and heart failure. Denies any dyspnea, no nausea or vomiting. Appetite is good. Transition to by mouth diuretics yesterday. Was seen by Dr. Esparza earlier, patient has discussed dialysis with all of her children, this point if needed she would like to pursue dialysis. 08/28: Patient seen examined, some nausea there, but was able to eat a good breakfast, started on HD yesterday, and toelated it well, had no other complaints. 08/29 Patient seen examined, has no acute concerns, sitting in bed comfortably, tolerating HD well, just upset that she ended on HD. Her x ray shows persistent pna, she still has low grade temp, but CHF is resolved. she remains on antibiotics plan to get blood cx today. 08/30: pt seen examined, no acute complaints or concerns, low grade fever, procalcitonin is neg, pt has completed abx, will d/c vanc and zosyn monitor off abx fo now repeat CXR with 2 views if fever curve worsens blood cx neg so far plan for tunneled cath tomorrow Pertinent ROS: Denies headache, dizziness Denies chest pain, palpitations Denies cough or shortness of breath Denies abdominal pain, nausea or vomiting. - Constitutional Vitals: Vital Signs Temp Pulse Resp BP Pulse Ox 98.7 F 60 16 168/71 95 08/30/17 09:33 08/30/17 09:17 08/30/17 09:17 08/30/17 08:00 08/30/17 09:17 Period Temp Pulse Resp BP Sys/Courtney Pulse Ox Last 24 Hr 96.7 F-99.5 F 59-64 16-18 136-175/62-79 94-98 Intake and Output 08/29/17 08/30/17 08/30/17 21:59 05:59 13:59 Intake Total 50 / 50 590 / 590 50 / 50 Output Total 4850 / 4850 Balance -4800 / -4800 590 / 590 50 / 50 Weight 144 lb Intake & Output: Intake & Output 08/29/17 08/30/17 08/30/17 21:59 05:59 13:59 Intake Total 50 / 50 590 / 590 50 / 50 Output Total 4850 / 4850 Balance -4800 / -4800 590 / 590 50 / 50 Weight 144 lb Intake: IV 50 / 50 50 / 50 50 / 50 Zosyn 2.25 gm In Dextrose 5% in 50 / 50 50 / 50 50 / 50 Water 50 ml @ 100 mls/hr IV Q8H [facility] Rx#:[id number] Oral 540 / 540 Output: Urine Catheter Amount 450 / 450 Hemodialysis UF 4400 / 4400 Other: Meal Dinner Nourishment/Supplement Percent of Meal Consumed 50% 100% Feeding Ability Independent Exam: Constitutional; Afebrile, cooperative, alert, not in distress. Eyes- No icterus, , No periorbital swelling Ears- Ext ear normal, hearing normal to conversation. Neck- Midline trachea, supple Respiratory system: Air Entry equal on both sides, No crackles or wheezing, no rhonchi. CVS- Rate rhythm regular, S1,S2 heard, no gallop, no rub. Abdomen- Soft nontender abdomen, no organomegaly, no tenderness, no guarding or rigidity, CORRUGATOR SUPERVISOR- AOOx3, moving all extremities, no gross focal deficit noted. Medical - PN: Obj Da - Labs CBC & Chem 7: 08/30/17 03:50 08/30/17 03:50 Labs: Abnormal Lab Results 08/30/17 08/30/17 08/29/17 03:50 03:50 03:46 RBC 3.16 L Hgb 10.0 L Hct 29.2 L Lymph % (Auto) 11.2 L Lymph # (Auto) 1.0 L Lymphocytes % Anisocytosis RBC Fragments APTT Chloride 91 L BUN 32 H Creatinine 1.9 H 2.4 H Glucose 198 H 184 H Uric Acid 2.3 L Calcium 8.5 L GGT 68 H 08/28/17 08/28/17 08/27/17 03:40 03:40 13:17 RBC 2.65 L Hgb 8.1 L Hct 24.5 L Lymph % (Auto) Lymph # (Auto) Lymphocytes % 11 L Anisocytosis 1+ A RBC Fragments Few A APTT 42 H Chloride BUN 58 H Creatinine 3.1 H Glucose 185 H Uric Acid Calcium 8.4 L GGT 61 H Meds: Medications Acetaminophen (Tylenol) 650 mg PO Q6HP PRN PRN Reason: PAIN/FEVER > 101 Last Admin: 08/30/17 09:33 Dose: 650 mg Hydrocodone Bitart/Acetaminophen (Pierz 7.5/325mg) 0.5 tab PO Q6HP PRN PRN Reason: Pain Amlodipine Besylate (Norvasc) 10 mg PO BID [facility] Last Admin: 08/30/17 09:02 Dose: 10 mg Bumetanide (Bumex) 1 mg PO BIDD [facility] Last Admin: 08/30/17 08:58 Dose: 1 mg Carvedilol (Coreg) 25 mg PO BIDCC [facility] Last Admin: 08/30/17 09:01 Dose: 25 mg Clonidine HCl (Catapres) 0.1 mg PO TID [facility] Last Admin: 08/30/17 09:02 Dose: 0.1 mg Dextrose (Dextrose 50%) 0 ml IV UD PRN PRN Reason: Hypoglycemia Diagnostic Test (Pha) (Accu-Chek) 1 each FS ACHS [facility] Last Admin: 08/30/17 07:45 Dose: 1 each Docusate Sodium (Colace) 100 mg PO BID [facility] Last Admin: 08/30/17 09:03 Dose: 100 mg Famotidine (Pepcid) 20 mg PO HS [facility] Last Admin: 08/29/17 21:15 Dose: 20 mg Ferrous Sulfate (Ferrous Sulfate) 325 mg PO BIDCC [facility] Last Admin: 08/30/17 09:02 Dose: 325 mg Gabapentin (Neurontin) 100 mg PO HS [facility] Last Admin: 08/29/17 21:13 Dose: 100 mg Glucose (Insta-Glucose) 15 gm PO PRN PRN PRN Reason: Hypoglycemia Heparin Sodium (Porcine) (Heparin) 5,000 unit SQ Q12 [facility] Last Admin: 08/30/17 10:09 Dose: 5,000 unit Insulin Glargine (Lantus) 15 unit SQ DAILY [facility] Last Admin: 08/30/17 10:54 Dose: 15 unit Insulin Glargine (Lantus) 10 unit SQ HS [facility] Last Admin: 08/29/17 21:15 Dose: 10 unit Insulin Human Lispro (Humalog) 0 unit SQ ACHS [facility] PRN Reason: Protocol Last Admin: 08/30/17 10:08 Dose: Not Given Levetiracetam (Keppra) 500 mg PO BID [facility] Last Admin: 08/30/17 09:02 Dose: 500 mg Levothyroxine Sodium (Synthroid) 112 mcg PO QAMAC [facility] Last Admin: 08/30/17 07:38 Dose: 112 mcg Magnesium Hydroxide (Milk Of Magnesia) 30 ml PO DAILYP PRN PRN Reason: Constipation Ondansetron HCl (Zofran) 4 mg IV Q4HP PRN PRN Reason: Nausea And Vomiting Sevelamer Carbonate (Renvela) 800 mg PO TIDCC [facility] Last Admin: 08/30/17 08:58 Dose: 800 mg Sodium Chloride (Saline Flush) 10 ml IV Q8 [facility] Last Admin: 08/30/17 05:31 Dose: 10 ml Medical - PN: A/P - Time Spent With Patient Total time spent is greater than 50% in coordination of care (as documented) at patient's floor/unit and/or counseling patient: - Narrative A/P Narrative: 71-year-old female with a history of congestive heart failure, chronic kidney disease, dementia presents with failure to thrive at home, found to have volume overload/congestive heart failure as well as acute hypoxic respiratory failure. Acute on chronic congestive heart failure, may be systolic and diastolic with mildly depressed systolic function EF 55% but also LVH. Stable Sunday. Net 1550 ml diuresis yesterday, net >5L since admit. Troponins were elevated but without change 0.18 range, suspect part of that is due to decreased renal function and decreased clearance. Plan: Continue PO Bumex,. fluid removal also via HD. CHF resolved on CXR Acute renal failure and chronic kidney disease stage III. Plan: Dr Esparza following, HD started management as per nephrology Atrial fibrillation, paroxysmal, self limited for several hours on . Remains resolved. Currently atrially paced rhythm. Plan: optimize electrolytes as needed. stable now, off telemetery. Pneumonia. Progressive right lower lobe consolidation, low-grade fevers consistent with superimposed pneumonia on top of congestive heart failure. Improving. Plan: microbiology neg, s/p antiobiotics x 7 days, discontinue them tomorrow, monitor fever curve. if worsens will get michele CT Acute hypoxic respiratory failure. Status-post BiPAP tx. Initial chest film with volume overload, subsequently with progressive development of right lower lobe infiltrate suspect also pneumonia. Mostly on RA, occasional need for O2.. Plan: off oxygen now. doing well. Dementia. Patient appears to have trouble caring for herself at home since her discharge from skilled facility. Likely will insist on returning to home, though on Sunday may be more amenable to SNF. Plan: Supportive care, social media designer consultation. Discharge planning noted her pharmacy was looking into dispensing blister packs to her at discharge. Type 2 diabetes mellitus. Plan: Continue controlled carbohydrate as well as low-sodium diet, continue with her Lantus at 15 units in the morning, 10 units at bedtime, sliding scale insulin, Accu-Cheks. Right carotid bruit. Has significant external carotid as well as 50% range internal carotid stenoses. Plan: Continue with Plavix and statin for now, may need outpatient surgyer referral, History of cerebrovascular accident. Plan: Continue with Plavix and statin. History of seizure disorder, no current seizure activity. Plan: Continue with Keppra CODE STATUS is discussed with the patient, is DO NOT RESUSCITATE. Prophylaxis: Subcutaneous heparin. Medical - PN: Qual - VTE Deep Vein Thrombosis/Pulmonary Embolism Present on Admission: No
[2017-08-30] MEDS: FAMOTIDINE 20 MG TABLET PO SCH (21:45)
[2017-08-30] MEDS: GABAPENTIN 100 MG CAPSULE PO SCH (21:45)
[2017-08-31] MEDS: ACETAMINOPHEN 325 MG TABLET PO PRN ×2 (03:37→15:52)
[2017-08-31 05:59] LABS: Basophils # (Auto) 0.1 K/mcL (0.0-0.3); Basophils % (Auto) 0.7 % (0.0-2.0); Eosinophils # (Auto) 0.4 K/mcL (0.0-0.7); Eosinophils % (Auto) 5.2 % (0.0-7.0); Granulocytes % (Auto) 74.1 % (38.0-78.0); Lymphocytes # (Auto) 1.1 K/mcL (1.5-4.8); Lymphocytes % (Auto) 13.1 % (15.5-49.0); Mean Cell Volume 93.2 fL (80.0-100.0); Mean Corpuscular HGB Conc 33.9 g/dL (31.0-36.0); Mean Corpuscular Hemoglobin 31.6 pg (26.0-34.0); Monocytes # (Auto) 0.6 K/mcL (0.1-0.9); Monocytes % (Auto) 6.9 % (1.0-12.0); Platelet Count 318 K/mcL (140-440); RBC 3.14 M/mcL (4.00-5.20); Red Cell Distribution Width 13.5 % (11.5-14.5)
[2017-08-31 06:15] LABS: ALT/SGPT 13 U/l (0-40); Albumin 3.5 gm/dL (3.2-5.2); Albumin/Globulin Ratio 1.1 (1.0-2.3); Alkaline Phosphatase 110 U/L (39-117); Bilirubin,Direct < 0.2 mg/dL (0.0-0.3); Blood Urea Nitrogen 26 mg/dl (8-23); Gamma Glutamyl Transpeptidase 66 U/L (5-36); Uric Acid 4.2 mg/dL (2.5-8.0)
[2017-08-31] MEDS: 0.9 % SODIUM CHLORIDE 10 ML SYRINGE IV SCH ×3 (07:15→22:20)
[2017-08-31] MEDS: HYDROCODONE/APAP 7.5/325MG TABLET PO PRN ×2 (07:20→17:11)
--- NOTE | 2017-08-31 08:25 | Nephrology Progress Note ---
Subjective Patient information: Note initiated : 08/31/17 at 8:21 am Service Date, if different from initiated Date: [] Patient: Shanda Rhodes 71 y/o F admitted on 08/22/17 for Weakness/CHF, Renal Failure. Chief Complaint: [] Principal diagnosis: acute on chronic renal failure, pul edema Interval history: no overnight events patient c/o pain around right shoulder blade, constant, does not sound pleuritic in nature no SOB, CP no cough no fever no edema denies any concerns will have tunneled cath placed today Pertinent ROS: as above Objective - Vital Signs Vital signs: Vital Signs Temp Pulse Pulse Resp BP BP Pulse Ox 08/31/17 07:26 98.8 F 20 156/66 95 08/31/17 07:15 68 20 95 08/31/17 04:00 98.3 F 74 18 168/68 93 08/30/17 23:57 99 F 64 184/72 97 08/30/17 20:00 98.1 F 138/65 96 08/30/17 16:00 97.0 F 64 119/58 98 08/30/17 09:33 98.7 F 08/30/17 09:17 60 16 95 Intake and Output 08/30/17 08/31/17 08/31/17 21:59 05:59 13:59 Intake Total 360 / 360 Output Total 450 / 450 625 / 625 Balance -450 / -450 -265 / -265 Intake: Oral 360 / 360 Output: Urine Catheter Amount 450 / 450 625 / 625 Other: Meal Dinner Percent of Meal Consumed 100% Feeding Ability Independent # Bowel Movements 1 1 Weight 143 lb 8 oz Intake & Output: Intake & Output 08/30/17 08/31/17 08/31/17 21:59 05:59 13:59 Intake Total 360 / 360 Output Total 450 / 450 625 / 625 Balance -450 / -450 -265 / -265 Weight 143 lb 8 oz Intake: Oral 360 / 360 Output: Urine Catheter Amount 450 / 450 625 / 625 Other: Meal Dinner Percent of Meal Consumed 100% Feeding Ability Independent # Bowel Movements 1 1 - General Appearance General appearance: appears started age, chronically ill, frail EENT: mucous membranes moist Neck: no JVD Respiratory: clear Cardiology: no rub, no edema, normal S1, normal S2 Gastrointestinal: no tenderness, no guarding Integumentary: warm and dry Neurologic: no asterixis, alert and oriented x3 Musculoskeletal: no erythema, no clubbing Psychiatric: mood/affect appropriate - Lab 08/31/17 04:00 08/31/17 04:00 Most recent lab results Calcium 8.8 mg/dl (8.6-10.4) 08/31/17 04:00 Phosphorus 3.8 mg/dL (2.7-4.5) 08/31/17 04:00 Magnesium 2.0 mg/dL (1.6-2.5) 08/31/17 04:00 Assessment and Plan (1) Acute on chronic renal failure ? 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 and HTN with h/o nephrotic range proteinuria non oliguric no K issues, mild acidosis started on bicarb supplement Patient has flapping tremors, persistent CHF despite diuresis, steadily worsening renal function, discussed dialysis again, she and her family agrees, discussed risk and benefit including risk of procedure at length she does have significant anemia from iron deficiency and CKD pneumonia on antibiotics Patient will have TCC placed today no urgent indication for dialysis today, if any concerns post procedure please inform and will arrange for the same will plan on dialysis tomorrow will need to resume plavix and heparin post procedure if no significant bleeding ct with fluid restriction, renal diet, post procedure Appreciate hospitalist help in managing this patient Status: Acute (2) Anemia Status: Acute (3) CHF (congestive heart failure) Status: Acute
[2017-08-31] MEDS: LEVOTHYROXINE SODIUM 112 MCG TABLET PO SCH (08:31)
[2017-08-31] MEDS: levETIRAcetam 500 MG TABLET PO SCH ×2 (08:32→22:18)
[2017-08-31] MEDS: amLODIPine 10 MG TABLET PO SCH ×2 (08:32→22:19)
[2017-08-31] MEDS: CARVEDILOL 12.5 MG TABLET PO SCH ×2 (08:32→17:11)
[2017-08-31] MEDS: INSULIN GLARGINE, HUMAN 1 UNIT/0.01 ML SQ SCH (08:32)
[2017-08-31] MEDS: cloNIDine HCL 0.1 MG TABLET PO SCH ×3 (08:32→22:20)
[2017-08-31] MEDS: SEVELAMER 800 MG TABLET PO SCH ×3 (08:32→17:10)
[2017-08-31] MEDS: INSULIN LISPRO 1 UNIT/0.01 ML UNIT SQ SCH ×4 (08:33→21:37)
[2017-08-31] MEDS: BUMETANIDE 1 MG TABLET PO SCH ×2 (08:36→15:51)
[2017-08-31] MEDS: FERROUS SULFATE 325 MG TABLET PO SCH ×2 (08:37→17:10)
[2017-08-31] MEDS: HEPARIN 5,000 UNIT/ML VIAL SQ SCH ×2 (08:37→21:37)
[2017-08-31] MEDS: DOCUSATE SODIUM 100 MG CAPSULE PO SCH ×2 (08:37→22:21)
--- NOTE | 2017-08-31 13:52 | Internal Med Progress Note ---
Medical - PN: Subj Patient information: Note initiated : 08/31/17 at 1:50 pm Service Date, if different from initiated Date: [] Patient: Shanda Rhodes a 71 y/o F admitted on 08/22/17 for Weakness/CHF, Renal Failure. Chief Complaint: [] Interval history: 08/22 Ms. Rhodes is a 71 year old F He presents from home with progressive failure to thrive. Patient has underlying dementia, stage III chronic kidney disease, type 2 diabetes, congestive heart failure. History is obtained speaking to the patient, as well as history obtained from the daughter which was relayed by Dr. carrasco from the ED, as well as reviewing her extensive record. She was in the [facility] up until about a week ago after a left fibular fracture, which was treated at [facility]. Since she's returned home, it's unclear if she is taking her medications correctly. Her daughter states many of her blister packs or spread about, she appears to have missed doses, and there is concern she may been using medications from prior medical regimens. Patient currently complains of just not feeling well, of her legs getting worse and becoming painful from her neuropathy, she is also complaining of throbbing in her mid chest. She also states her abdomen is aching at times, she's had intermittent nausea, no emesis , no diarrhea. She's had normal urine output is not felt any dysuria. She's had some headache, no sore throat, no fever. Her glucoses have been low and high, she did not eat last night, she states that she couldn't find food at home. The patient is describing some "throbbing" discomfort in her mid chest which waxes and wanes, it's not associated with dyspnea, magali, does not radiate. It does not appear to be exertional. she denies any cough or sputum production, no pleuritic chest pain. No orthopnea. She is complaining of pain in her feet with some swelling, she attributes the pain to worsening of her neuropathy. In the emergency department, patient's found to be hypoxic with room air saturation in the 80s, requiring 5 L nasal cannula to maintain normoxia. She has evidence of volume overload on exam and on chest radiograph is being admitted for acute congestive heart failure. In addition she has worsening of her baseline chronic kidney disease. 08/23 Initially seen in the midafternoon. At that point her breathing was improved, overall she felt she was feeling somewhat better. Not much response to 40 mg twice daily Lasix. Around dinner, patient was more lethargic, difficult to arouse, requiring facemask to maintain her oxygenation. ABG showed her hypoxic respiratory failure. Chest radiograph from earlier in the day showed increasing right lower lobe consolidation. She did have low-grade fevers today as well. Moved to the ICU, started on BiPAP and antibiotics. 08/24-Seen in the early afternoon. Much more alert than last evening. Tolerated BiPAP overnight, was off of BiPAP all day today. Urine output picking up with higher doses of furosemide. Remains quite weak overall. When and atrial fibrillation in late morning, is rate controlled, spontaneously cardioverted later in the day. 08/25-continues to feel improved. Sitting up eating breakfast. Dyspnea is improved. No chest pain, no cough or sputum production. Appetite is improved. Remains in normal sinus rhythm/atrial paced rhythm 08/26-in good spirits this morning, seen during breakfast. Sitting up eating, conversant. No dyspnea. Later was ambulating with PT with minimal dyspnea. No chest pain. Edema is improving. No cough or sputum production. Appetite good. 08/27-sleeping soundly in midmorning I see her. Been up earlier with breakfast. Was complaining of some tremor when she was starting to walk with her walker. Respiratory status is stable, renal function has not recovered with treatment of pneumonia and heart failure. Denies any dyspnea, no nausea or vomiting. Appetite is good. Transition to by mouth diuretics yesterday. Was seen by Dr. Esparza earlier, patient has discussed dialysis with all of her children, this point if needed she would like to pursue dialysis. 08/28: Patient seen examined, some nausea there, but was able to eat a good breakfast, started on HD yesterday, and toelated it well, had no other complaints. 08/29 Patient seen examined, has no acute concerns, sitting in bed comfortably, tolerating HD well, just upset that she ended on HD. Her x ray shows persistent pna, she still has low grade temp, but CHF is resolved. she remains on antibiotics plan to get blood cx today. 08/30: pt seen examined, no acute complaints or concerns, low grade fever, procalcitonin is neg, pt has completed abx, will d/c vanc and zosyn monitor off abx fo now repeat CXR with 2 views if fever curve worsens blood cx neg so far plan for tunneled cath tomorrow 08/31 Patient seen and examined, no acute overnight events, sitting in the chair, comfortable. Plans to have a tunneled catheter placed today. She denies any chest pain, no shortness of breath. No nausea, no vomiting, abdominal pain, no headache, no dizziness, no edema, feet. Chest exam is clear. Patient has no fever since yesterday, labs unremarkable, unchanged. Off antibiotics now. Pertinent ROS: Denies headache, dizziness Denies chest pain, palpitations Denies cough or shortness of breath Denies abdominal pain, nausea or vomiting. - Constitutional Vitals: Vital Signs Temp Pulse Resp BP Pulse Ox 98.5 F 69 16 142/59 96 08/31/17 11:30 08/31/17 11:30 08/31/17 11:30 08/31/17 11:30 08/31/17 11:30 Period Temp Pulse Resp BP Sys/Courtney Pulse Ox Last 24 Hr 97.0 F-99 F 64-74 16-20 119-184/58-72 93-98 Intake and Output 08/30/17 08/31/17 08/31/17 21:59 05:59 13:59 Intake Total 360 / 360 120 / 120 Output Total 450 / 450 625 / 625 250 / 250 Balance -450 / -450 -265 / -265 -130 / -130 Weight 143 lb 8 oz Intake & Output: Intake & Output 08/30/17 08/31/17 08/31/17 21:59 05:59 13:59 Intake Total 360 / 360 120 / 120 Output Total 450 / 450 625 / 625 250 / 250 Balance -450 / -450 -265 / -265 -130 / -130 Weight 143 lb 8 oz Intake: Oral 360 / 360 120 / 120 Output: Urine Catheter Amount 450 / 450 625 / 625 Void Amount 250 / 250 Other: Meal Dinner Breakfast Percent of Meal Consumed 100% 100% Feeding Ability Independent # Bowel Movements 1 1 Exam: Constitutional; Afebrile, cooperative, alert, not in distress. Eyes- No icterus, , No periorbital swelling Ears- Ext ear normal, hearing normal to conversation. Neck- Midline trachea, supple Respiratory system: Air Entry equal on both sides, No crackles or wheezing, no rhonchi. CVS- Rate rhythm regular, S1,S2 heard, no gallop, no rub. Abdomen- Soft nontender abdomen, no organomegaly, no tenderness, no guarding or rigidity, [employer] BREAST- AOOx3, moving all extremities, no gross focal deficit noted. Medical - PN: Obj Da - Labs CBC & Chem 7: 08/31/17 04:00 08/31/17 04:00 Labs: Abnormal Lab Results 08/31/17 08/31/17 08/30/17 04:00 04:00 03:50 RBC 3.14 L Hgb 9.9 L Hct 29.2 L Lymph % (Auto) 13.1 L Lymph # (Auto) 1.1 L Chloride 93 L 91 L BUN 26 H Creatinine 2.7 H 1.9 H Glucose 287 H 198 H Uric Acid 2.3 L Calcium GGT 66 H 68 H Triglycerides 156 H 08/30/17 08/29/17 03:50 03:46 RBC 3.16 L Hgb 10.0 L Hct 29.2 L Lymph % (Auto) 11.2 L Lymph # (Auto) 1.0 L Chloride BUN 32 H Creatinine 2.4 H Glucose 184 H Uric Acid Calcium 8.5 L GGT Triglycerides Meds: Medications Acetaminophen (Tylenol) 650 mg PO Q6HP PRN PRN Reason: PAIN/FEVER > 101 Last Admin: 08/31/17 03:37 Dose: 650 mg Hydrocodone Bitart/Acetaminophen ([place] 7.5/325mg) 0.5 tab PO Q6HP PRN PRN Reason: Pain Last Admin: 08/31/17 07:20 Dose: 0.5 tab Amlodipine Besylate (Norvasc) 10 mg PO BID [facility] Last Admin: 08/31/17 08:32 Dose: 10 mg Bumetanide (Bumex) 1 mg PO BIDD [facility] Last Admin: 08/31/17 08:36 Dose: Not Given Carvedilol (Coreg) 25 mg PO BIDCC [facility] Last Admin: 08/31/17 08:32 Dose: 25 mg Clonidine HCl (Catapres) 0.1 mg PO TID [facility] Last Admin: 08/31/17 08:32 Dose: 0.1 mg Dextrose (Dextrose 50%) 0 ml IV UD PRN PRN Reason: Hypoglycemia Diagnostic Test (Pha) (Accu-Chek) 1 each FS ACHS [facility] Last Admin: 08/31/17 11:17 Dose: 1 each Docusate Sodium (Colace) 100 mg PO BID [facility] Last Admin: 08/31/17 08:37 Dose: Not Given Famotidine (Pepcid) 20 mg PO HS [facility] Last Admin: 08/30/17 21:45 Dose: 20 mg Ferrous Sulfate (Ferrous Sulfate) 325 mg PO BIDCC [facility] Last Admin: 08/31/17 08:37 Dose: Not Given Gabapentin (Neurontin) 100 mg PO HS [facility] Last Admin: 08/30/17 21:45 Dose: 100 mg Glucose (Insta-Glucose) 15 gm PO PRN PRN PRN Reason: Hypoglycemia Heparin Sodium (Porcine) (Heparin) 5,000 unit SQ Q12 [facility] Last Admin: 08/31/17 08:37 Dose: Not Given Insulin Glargine (Lantus) 15 unit SQ DAILY [facility] Last Admin: 08/31/17 08:32 Dose: 15 unit Insulin Glargine (Lantus) 10 unit SQ [facility] Last Admin: 08/30/17 21:45 Dose: 10 unit Insulin Human Lispro (Humalog) 0 unit SQ [facility] PRN Reason: Protocol Last Admin: 08/31/17 11:18 Dose: Not Given Levetiracetam (Keppra) 500 mg PO BID [facility] Last Admin: 08/31/17 08:32 Dose: 500 mg Levothyroxine Sodium (Synthroid) 112 mcg PO QAMAC [facility] Last Admin: 08/31/17 08:31 Dose: 112 mcg Magnesium Hydroxide (Milk Of Magnesia) 30 ml PO DAILYP PRN PRN Reason: Constipation Ondansetron HCl (Zofran) 4 mg IV Q4HP PRN PRN Reason: Nausea And Vomiting Sevelamer Carbonate (Renvela) 800 mg PO TIDCC [facility] Last Admin: 08/31/17 12:56 Dose: Not Given Sodium Chloride (Saline Flush) 10 ml IV Q8 [facility] Last Admin: 08/31/17 07:15 Dose: 10 ml Medical - PN: A/P - Time Spent With Patient Total time spent is greater than 50% in coordination of care (as documented) at patient's floor/unit and/or counseling patient: - Narrative A/P Narrative: 71-year-old female with a history of congestive heart failure, chronic kidney disease, dementia presents with failure to thrive at home, found to have volume overload/congestive heart failure as well as acute hypoxic respiratory failure. Acute on chronic congestive heart failure, may be systolic and diastolic with mildly depressed systolic function EF 55% but also LVH. Plan: Continue PO Bumex,. fluid removal also via HD. CHF resolved on CXR Acute renal failure and chronic kidney disease stage III. Plan: Dr Esparza following, HD started management as per nephrology , Tunneled cath planned today. Atrial fibrillation, paroxysmal, self limited for several hours on . Remains resolved. Currently atrially paced rhythm. Plan: optimize electrolytes as needed. stable now, off telemetery. Pneumonia. Progressive right lower lobe consolidation, low-grade fevers consistent with superimposed pneumonia on top of congestive heart failure. Improving. Plan: microbiology neg, s/p antiobiotics x 7 days, off antibiotics doing well. Acute hypoxic respiratory failure. Status-post BiPAP tx. Initial chest film with volume overload, subsequently with progressive development of right lower lobe infiltrate suspect also pneumonia. Mostly on RA, occasional need for O2.. Plan: off oxygen now. doing well. Dementia. Patient appears to have trouble caring for herself at home since her discharge from skilled facility. will likely be d/c to snf. Plan: Supportive care, licensed clinical social worker consultation. Discharge planning noted her pharmacy was looking into dispensing blister packs to her at discharge. Type 2 diabetes mellitus. Plan: Continue controlled carbohydrate as well as low-sodium diet, continue with her Lantus at 15 units in the morning, 15 units at bedtime, sliding scale insulin, Accu-Cheks. Right carotid bruit. Has significant external carotid as well as 50% range internal carotid stenoses. Plan: Continue with Plavix and statin for now, may need outpatient surgery referral, History of cerebrovascular accident. Plan: Continue with Plavix and statin. History of seizure disorder, no current seizure activity. Plan: Continue with Kejuanitara, CODE STATUS is discussed with the patient, is DO NOT RESUSCITATE. Prophylaxis: Subcutaneous heparin. Medical - PN: Qual - VTE Deep Vein Thrombosis/Pulmonary Embolism Present on Admission: No
[2017-08-31 19:15] LABS: Hepatitis B Surface Antibody NEGATIVE (NEGATIVE); Hepatitis B Surface Antigen NEGATIVE (NEGATIVE)
[2017-08-31] MEDS ORDERED: INSULIN GLARGINE, HUMAN 1 UNIT/0.01 ML SQ SCH (21:00)
[2017-08-31] MEDS: GABAPENTIN 100 MG CAPSULE PO SCH (22:19)
[2017-08-31] MEDS: FAMOTIDINE 20 MG TABLET PO SCH (22:19)
[2017-09-01] MEDS: 0.9 % SODIUM CHLORIDE 10 ML SYRINGE IV SCH ×2 (04:07→14:44)
[2017-09-01] MEDS: HYDROCODONE/APAP 7.5/325MG TABLET PO PRN ×2 (04:12→14:49)
[2017-09-01 05:35] LABS: Basophils # (Auto) 0 K/mcL (0.0-0.3); Basophils % (Auto) 0.3 % (0.0-2.0); Eosinophils # (Auto) 0.3 K/mcL (0.0-0.7); Eosinophils % (Auto) 3.1 % (0.0-7.0); Granulocytes % (Auto) 75.5 % (38.0-78.0); Lymphocytes # (Auto) 1.1 K/mcL (1.5-4.8); Mean Cell Volume 91.1 fL (80.0-100.0); Mean Corpuscular HGB Conc 33.5 g/dL (31.0-36.0); Mean Corpuscular Hemoglobin 30.5 pg (26.0-34.0); Monocytes # (Auto) 0.7 K/mcL (0.1-0.9); Monocytes % (Auto) 8.1 % (1.0-12.0); Platelet Count 324 K/mcL (140-440); RBC 3.11 M/mcL (4.00-5.20); Red Cell Distribution Width 13.7 % (11.5-14.5)
[2017-09-01 06:14] LABS: ALT/SGPT 10 U/l (0-40); Albumin 3.6 gm/dL (3.2-5.2); Albumin/Globulin Ratio 1.2 (1.0-2.3); Alkaline Phosphatase 105 U/L (39-117); Bilirubin,Direct < 0.2 mg/dL (0.0-0.3); Blood Urea Nitrogen 40 mg/dl (8-23); Gamma Glutamyl Transpeptidase 63 U/L (5-36); Uric Acid 6.2 mg/dL (2.5-8.0)
[2017-09-01] MEDS: INSULIN LISPRO 1 UNIT/0.01 ML UNIT SQ SCH ×2 (08:13→12:03)
[2017-09-01] MEDS: DOCUSATE SODIUM 100 MG CAPSULE PO SCH (09:30)
[2017-09-01] MEDS: LEVOTHYROXINE SODIUM 112 MCG TABLET PO SCH (09:30)
[2017-09-01] MEDS: FERROUS SULFATE 325 MG TABLET PO SCH (09:30)
[2017-09-01] MEDS: levETIRAcetam 500 MG TABLET PO SCH (09:30)
[2017-09-01] MEDS: SEVELAMER 800 MG TABLET PO SCH ×2 (09:30→14:44)
[2017-09-01] MEDS: amLODIPine 10 MG TABLET PO SCH ×2 (09:30→09:41)
[2017-09-01] MEDS: cloNIDine HCL 0.1 MG TABLET PO SCH ×2 (09:31→09:41)
[2017-09-01] MEDS: CARVEDILOL 12.5 MG TABLET PO SCH ×2 (09:31→09:41)
[2017-09-01] MEDS: BUMETANIDE 1 MG TABLET PO SCH (09:31)
[2017-09-01] MEDS: HEPARIN 5,000 UNIT/ML VIAL SQ SCH (09:32)
--- NOTE | 2017-09-01 13:34 | Nephrology Progress Note ---
Subjective Patient information: Note initiated : 09/01/17 at 1:31 pm Service Date, if different from initiated Date: [] Patient: Shanda Rhodes 71 y/o F admitted on 08/22/17 for Weakness/CHF, Renal Failure. 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 car server She was also offered to continue care with him very clearly and she did want me to take care for her, she was actually scheduled to see me in the clinic the day she got hospitalised She denies SOB, she is participating in PT she denies CP, dizziness, edema she did have some nausea this am Pertinent ROS: as above Objective - Vital Signs Vital signs: Vital Signs Temp Pulse Pulse Resp BP BP Pulse Ox 09/01/17 11:51 99 F 18 161/65 97 09/01/17 09:36 104/50 09/01/17 08:00 97.8 F 18 180/78 95 09/01/17 04:00 98.4 F 72 18 145/75 94 08/31/17 20:26 97 F 64 139/69 97 08/31/17 16:00 97 F 18 143/76 98 Intake and Output 08/31/17 09/01/17 09/01/17 21:59 05:59 13:59 Intake Total 0 / 0 50 / 50 240 / 240 Output Total 200 / 200 175 / 175 75 / 75 Balance -200 / -200 -125 / -125 165 / 165 Intake: Oral 0 / 0 50 / 50 240 / 240 Output: Urine Catheter Amount 200 / 200 Void Amount 0 / 0 175 / 175 75 / 75 Other: Meal Dinner Breakfast Percent of Meal Consumed 75% 100% Feeding Ability Independent # Bowel Movements 1 Weight 143 lb 8 oz Intake & Output: Intake & Output 08/31/17 09/01/17 09/01/17 21:59 05:59 13:59 Intake Total 0 / 0 50 / 50 240 / 240 Output Total 200 / 200 175 / 175 75 / 75 Balance -200 / -200 -125 / -125 165 / 165 Weight 143 lb 8 oz Intake: Oral 0 / 0 50 / 50 240 / 240 Output: Urine Catheter Amount 200 / 200 Void Amount 0 / 0 175 / 175 75 / 75 Other: Meal Dinner Breakfast Percent of Meal Consumed 75% 100% Feeding Ability Independent # Bowel Movements 1 - General Appearance General appearance: appears started age, chronically ill, frail EENT: mucous membranes moist Neck: no JVD Respiratory: clear Cardiology: no edema, normal S1, normal S2 Gastrointestinal: no tenderness, no guarding Integumentary: warm and dry Neurologic: no asterixis, alert and oriented x3 Musculoskeletal: no erythema, no cyanosis Psychiatric: mood/affect appropriate (seems a little depressed and overwhelmed ) - Lab 09/01/17 05:10 09/01/17 05:10 Most recent lab results Calcium 9.0 mg/dl (8.6-10.4) 09/01/17 05:10 Phosphorus 5.0 mg/dL (2.7-4.5) H 09/01/17 05:10 Magnesium 2.1 mg/dL (1.6-2.5) 09/01/17 05:10 Assessment and Plan (1) Acute on chronic renal failure Patient has h/o CKD stage IV from diabetic kidney disease, she had acute worsening of renal function this hospital stay from pneumonia and CHF non oliguric Patient had flapping tremors, persistent CHF despite diuresis, steadily worsening renal function, she wanted to initiate dialysis after discussing risk and benefit at length and now she is finding this overwhelming she does have significant anemia from iron deficiency and CKD which has improved with IV iron and improved, will continue to monitor her Hb and initiate aranesp if Hb stays below 10 pneumonia treated with antibiotics Patient will continue with outpt dialysis, will be done tonight and resume MWF schedule from next week I again talked at length with her about benefit and risk of doing and not doing dialysis, also discussed to try how things go for her as outpatient and revisit if she wants to do this group home, it was explained that terminating dialysis may lead to eventual over weeks to months She is not a candidate for home therapy at this time once she is out of care facility I will discuss transplant with her and her daughter Will follow along Appreciate hospitalist help in managing this patient Status: Acute (2) Anemia Status: Acute (3) CHF (congestive heart failure) Status: Acute
--- NOTE | 2017-09-01 13:55 | Discharge Summary ---
Medical - DS: Prov Patient information: Note initiated : 09/01/17 at 1:53 pm Service Date, if different from initiated Date: [] Patient: Shanda Rhodes 71 y/o F admitted on 08/22/17 for Weakness/CHF, Renal Failure. Chief Complaint: [] Date of admission: 08/22/17 14:44 Discharge date: 09/01/17 Primary care physician: Scott Madrid Admitting clinician: Demi Damon Consults: 08/22/17 11:47 Consult to Physician [CONS] Stat Comment: Consulting Provider: Demi Damon Reason For Exam: Physician to Consult 08/23/17 12:05 Consult to Physician [CONS] Routine Comment: Consulting Provider: [facility] Reason For Exam: Physician to Consult Discharging clinician: Samra Ram Medical - DS: Meds - Discharge Medications Active and Home Medications: Home Medications Levothyroxine Sodium [Synthroid] 112 mcg PO QAMAC 07/03/15 [History Confirmed Last Taken 08/21/17] Accu-Chek 1 each FS ACHS #30 strip 07/05/15 [Rx Confirmed 08/22/17 Last Taken ] levETIRAcetam [Levetiracetam] 500 mg PO BID 11/10/16 [History Confirmed Last Taken 08/21/17] Clopidogrel Bisulfate [Plavix] 75 mg PO DAILY 11/20/16 [History Confirmed Last Taken 08/21/17] Acetaminophen [Tylenol] 650 mg PO Q4-6HP PRN #0 tab 11/24/16 [Rx Confirmed 08/22 Last Taken Unknown] Calcium Acetate [Phoslo] 667 mg PO TIDCC #90 cap 11/24/16 [Rx Confirmed Last Taken 08/21/17] Insulin Lispro [Humalog] See Protocol SQ ACHS #0 unit 11/24/16 [Rx Confirmed Last Taken 08/21/17] clonidine HCl 0.1 mg tablet 0.1 mg PO TID tab 12/07/16 [History Confirmed 08/22 Last Taken 08/21/17] metoclopramide 5 mg tablet 5 mg PO BID tab 12/07/16 [History Confirmed Last Taken 08/21/17] gabapentin 300 mg tablet 300 mg PO HS 01/08/17 [History Confirmed 08/22/17 Last Taken 08/21/17] insulin glargine (U-100) 100 unit/mL (3 mL) subcutaneous pen See Label Instructions .ROUTE .COMPLEX ml 01/08/17 [History Confirmed 08/22/17 Last Taken 08/21/17] Carvedilol [Coreg] 25 mg PO BID 08/22/17 [History Confirmed 08/22/17 Last Taken 08/21/17] Ferrous Sulfate [High Potency Iron] 65 mg PO BID 08/22/17 [History Confirmed Last Taken 08/21/17] Furosemide [Lasix] 40 mg PO DAILY 08/22/17 [History Confirmed 08/22/17 Last Taken 08/21/17] Hydrocodone/APAP 7.5/325Mg [[place] 7.5/325Mg] 0.5 tab PO Q6HP PRN 08/22/17 [ History Confirmed 08/22/17 Last Taken 08/21/17] Prochlorperazine Maleate [Compazine] 10 mg PO Q6HP PRN 08/22/17 [History Confirmed 08/22/17 Last Taken Unknown] amLODIPine [Norvasc] 10 mg PO BID 08/22/17 [History Confirmed 08/22/17 Last Taken 08/21/17] Medical - DS: Hosp Hospital course: Ms. Rhodes is a 71 year old F He presented to the hospital from home with progressive failure to thrive. Patient has underlying dementia, stage III chronic kidney disease, type 2 diabetes, congestive heart failure. History is obtained speaking to the patient, as well as history obtained from the daughter which was relayed by Dr. carrasco from the ED, as well as reviewing her extensive record. She was in the [facility] skilled facility up until about a week ago after a left fibular fracture, which was treated at [facility]. Since she's returned home, it's unclear if she is taking her medications correctly. Her daughter states many of her blister packs or spread about, she appears to have missed doses, and there is concern she may been using medications from prior medical regimens. Patient currently complains of just not feeling well, of her legs getting worse and becoming painful from her neuropathy, she is also complaining of throbbing in her mid chest. She also states her abdomen is aching at times, she's had intermittent nausea, no emesis, no diarrhea. She's had normal urine output is not felt any dysuria. She's had some headache, no sore throat, no fever. Her glucoses have been low and high, she did not eat last night, she states that she couldn't find food at home. The patient is describing some "throbbing" discomfort in her mid chest which waxes and wanes, it's not associated with dyspnea, magali, does not radiate. It does not appear to be exertional. she denies any cough or sputum production, no pleuritic chest pain. No orthopnea. She is complaining of pain in her feet with some swelling, she attributes the pain to worsening of her neuropathy. In the emergency department, patient's found to be hypoxic with room air saturation in the 80s, requiring 5 L nasal cannula to maintain normoxia. She has evidence of volume overload on exam and on chest radiograph is being admitted for acute congestive heart failure. In addition she has worsening of her baseline chronic kidney disease. CHF: acute diastolic congestive heart failure Patient's systolic function is 55. ,he patient required BiPAP to manage her respiratory failure on presentation, late transition to nasal cannula. She was treated with intravenous diuretics. Her kidney function worsened and she needed to be initiated on dialysis. Nephrology help manage initiation of dialysis. With the initiation of dialysis. Patient fluid balance was negative and a chest x-ray cleared. The patient will continue to be on Bumex. at the time of discharge, patient is on room air. acute on chronic renal failure: seen by nephrology, patient still function worsened during the hospital stay, after extensive discussion with the patient and family, it was decided to initiate dialysis. Patient is now on dialysis. Initially, a temporary catheter was placed by Dr. NICHOLS, patient had a tunneled catheter placed yesterday on 31 August 2017. Patient will get her scheduled dialysis today. As an outpatient. Nephrology is following the patient The patient's hospital course was complicated by a healthcare associated pneumonia, patient was treated with 7 days of IV antibiotics, vancomycin and Zosyn, patient responded to the treatment very well. Microbiology was negative diabetes- the patient has brittle diabetes, takes 15 units of Lantus in the morning and 7 in the night. Her glucose level is difficult to manage because her diet is not consistent. On increasing the Lantus to 15 twice a day the patient became hypoglycemic in the morning, a.m. dose of Lantus was held and the glucose level increased back. We will try to resume Lantus at 15 units just once a day and use sliding scale. carotid, artery stenosis, will need outpatient vascular evaluation to determine if any intervention is necessary. the rest of the stay in the hospital was uneventful, patient is still weak and unable to be discharged home. Given it's a weekend. Patient will discharge to swing bed status. It is planned to be discharged patient to rehabilitation center on Sunday Discharge diagnosis: CHF, Pneumonia, Renal Failure, - Time Spent with Patient Total time spent providing and/or coordinating discharge services: Greater than 30 minutes Medical - DS: Exam - Constitutional Vitals: Vital Signs Temp Pulse Pulse Resp BP BP Pulse Ox 09/01/17 11:51 99 F 18 161/65 97 09/01/17 09:36 104/50 09/01/17 08:00 97.8 F 18 180/78 95 09/01/17 04:00 98.4 F 72 18 145/75 94 08/31/17 20:26 97 F 64 139/69 97 08/31/17 16:00 97 F 18 143/76 98 Intake and Output 08/31/17 09/01/17 09/01/17 21:59 05:59 13:59 Intake Total 0 / 0 50 / 50 240 / 240 Output Total 200 / 200 175 / 175 75 / 75 Balance -200 / -200 -125 / -125 165 / 165 Intake: Oral 0 / 0 50 / 50 240 / 240 Output: Urine Catheter Amount 200 / 200 Void Amount 0 / 0 175 / 175 75 / 75 Other: Meal Dinner Breakfast Percent of Meal Consumed 75% 100% Feeding Ability Independent # Bowel Movements 1 Weight 143 lb 8 oz Additional comments: Constitutional; Afebrile, cooperative, alert, not in distress. Eyes- No icterus, , No periorbital swelling Ears- Ext ear normal. Neck- Midline trachea, supple Respiratory system: Air Entry equal on both sides, No crackles or wheezing, no rhonchi. CVS- Rate rhythm regular, S1,S2 heard, no gallop, no rub. Abdomen- Soft nontender abdomen, no organomegaly, no tenderness, no guarding or rigidity, [employer]- AOOx3, moving all extremities, no gross focal deficit noted. Medical - DS: Data Labs on day of discharge: Labs from last 24 hours 09/01/17 09/01/17 09/01/17 05:10 05:10 05:10 WBC 8.8 RBC 3.11 L Hgb 9.5 L Hct 28.3 L MCV 91.1 MCH 30.5 MCHC 33.5 RDW 13.7 Plt Count 324 MPV 7.2 L Gran % 75.5 Lymph % (Auto) 13.0 L [place] % (Auto) 8.1 Eos % (Auto) 3.1 Baso % (Auto) 0.3 Gran # 6.6 Lymph # (Auto) 1.1 L [place] # (Auto) 0.7 Eos # (Auto) 0.3 Baso # (Auto) 0 Sodium 137 Potassium 4.0 Chloride 97 Carbon Dioxide 25 Anion Gap 15.0 BUN 40 H Creatinine 3.3 H GFR Calculation 13 Glucose 64 L Uric Acid 6.2 Calcium 9.0 Phosphorus 5.0 H Magnesium 2.1 Total Bilirubin 0.2 Direct Bilirubin < 0.2 GGT 63 H AST 16 ALT 10 Alkaline Phosphatase 105 Lactate Dehydrogenase 219 Total Protein 6.6 Albumin 3.6 Globulin 3.0 Albumin/Globulin Ratio 1.2 Triglycerides 93 Random Vancomycin 15.0 Vancomycin Dose Not Reportable Vanco Last Dose Time Not Reportable Hep Bs Antigen Hep Bs Antibody 08/31/17 16:14 WBC RBC Hgb Hct MCV MCH MCHC RDW Plt Count MPV Gran % Lymph % (Auto) [place] % (Auto) Eos % (Auto) Baso % (Auto) Gran # Lymph # (Auto) [place] # (Auto) Eos # (Auto) Baso # (Auto) Sodium Potassium Chloride Carbon Dioxide Anion Gap BUN Creatinine GFR Calculation Glucose Uric Acid Calcium Phosphorus Magnesium Total Bilirubin Direct Bilirubin GGT AST ALT Alkaline Phosphatase Lactate Dehydrogenase Total Protein Albumin Globulin Albumin/Globulin Ratio Triglycerides Random Vancomycin Vancomycin Dose Vanco Last Dose Time Hep Bs Antigen Negative Hep Bs Antibody Negative Preliminary micro results at discharge 08/29/17 09:20 Blood Culture - Preliminary Blood 08/29/17 09:24 Blood Culture - Preliminary Blood Medical - DS: A/P - Patient/Caregiver Discharge Instructions Activity: as per physical therapy, increase activity as tolerated Diet: Cardiac, Renal/Consistent Carbs Additional Instructions: patient is being discharged to swing bed status - Follow up Plan Follow up with: Scott Madrid MD [Primary Care Provider] - Pradeep Nichols MD [Physician] - 09/26/17 1:15 pm (Follow up with Dr Nichols.) Disposition: [facility] Prognosis: Fair Rehab Potential: Fair I certify that the patient requires SNF services: Yes Overall status at discharge: patient is progressing back to baseline Medical - DS: Qual - VTE Deep Vein Thrombosis/Pulmonary Embolism Present on Admission: No
== END 2017-09-01 14:06 | DRG 291 ==
LOC: ED 09:32 → ICU 14:44 → MEDSUR 08-29 19:02
PROVIDERS: ADMIT Internal Medicine; ATTEND Internal Medicine

== ENCOUNTER 2017-09-01 09:38 | Inpatient (IN) ==
[2017-09-01] MEDS ORDERED: ACETAMINOPHEN 325 MG TABLET PO PRN ×2 (14:08→15:55)
[2017-09-01] MEDS ORDERED: MAGNESIUM HYDROXIDE 30 ML ORAL.SUSP PO PRN (14:08)
[2017-09-01] MEDS ORDERED: DEXTROSE 31 GM ORAL.SUSP PO PRN (14:08)
[2017-09-01] MEDS ORDERED: DEXTROSE 50% 50 ML VIAL IV PRN (14:08)
[2017-09-01] MEDS ORDERED: ONDANSETRON 4 MG/2 ML VIAL IV PRN (14:08)
[2017-09-01] MEDS ORDERED: PROCHLORPERAZINE MALEATE 10 MG TABLET PO PRN (15:55)
[2017-09-01] MEDS ORDERED: CALCIUM ACETATE 667 MG CAPSULE PO SCH (17:30)
[2017-09-01] MEDS ORDERED: GABAPENTIN 300 MG CAPSULE PO SCH (21:00)
[2017-09-01] MEDS: INSULIN LISPRO 1 UNIT/0.01 ML UNIT SQ SCH ×2 (21:05→21:20)
[2017-09-01] MEDS: GABAPENTIN 100 MG CAPSULE PO SCH (21:16)
[2017-09-01] MEDS: METOCLOPRAMIDE 10 MG TABLET PO SCH (21:16)
[2017-09-01] MEDS: SEVELAMER 800 MG TABLET PO SCH (21:16)
[2017-09-01] MEDS: levETIRAcetam 500 MG TABLET PO SCH (21:16)
[2017-09-01] MEDS: CARVEDILOL 12.5 MG TABLET PO SCH (21:17)
[2017-09-01] MEDS: cloNIDine HCL 0.1 MG TABLET PO SCH (21:17)
[2017-09-01] MEDS: amLODIPine 10 MG TABLET PO SCH (21:17)
[2017-09-01] MEDS: FERROUS SULFATE 325 MG TABLET PO SCH (21:17)
[2017-09-01] MEDS: 0.9 % SODIUM CHLORIDE 10 ML SYRINGE IV SCH (21:17)
[2017-09-01] MEDS: HYDROCODONE/APAP 7.5/325MG TABLET PO PRN (21:35)
[2017-09-02] MEDS: HYDROCODONE/APAP 7.5/325MG TABLET PO PRN (03:51)
[2017-09-02] MEDS ORDERED: BUMETANIDE 1 MG TABLET PO SCH (08:00)
[2017-09-02] MEDS: LEVOTHYROXINE SODIUM 112 MCG TABLET PO SCH (08:01)
[2017-09-02] MEDS: 0.9 % SODIUM CHLORIDE 10 ML SYRINGE IV SCH ×3 (08:01→20:38)
[2017-09-02] MEDS: METOCLOPRAMIDE 10 MG TABLET PO SCH ×2 (08:01→17:15)
[2017-09-02] MEDS: amLODIPine 10 MG TABLET PO SCH ×2 (08:56→20:37)
[2017-09-02] MEDS: cloNIDine HCL 0.1 MG TABLET PO SCH ×3 (08:56→20:37)
[2017-09-02] MEDS: levETIRAcetam 500 MG TABLET PO SCH ×2 (08:57→20:37)
[2017-09-02] MEDS: FERROUS SULFATE 325 MG TABLET PO SCH ×2 (08:57→17:15)
[2017-09-02] MEDS: INSULIN LISPRO 1 UNIT/0.01 ML UNIT SQ SCH ×4 (08:57→20:39)
[2017-09-02] MEDS: INSULIN GLARGINE, HUMAN 1 UNIT/0.01 ML SQ SCH (08:57)
[2017-09-02] MEDS: SEVELAMER 800 MG TABLET PO SCH ×3 (08:57→17:15)
[2017-09-02] MEDS: HEPARIN 5,000 UNIT/ML VIAL SQ SCH ×2 (08:57→20:36)
[2017-09-02] MEDS: CLOPIDOGREL 75 MG TABLET PO SCH (08:57)
[2017-09-02] MEDS: CARVEDILOL 12.5 MG TABLET PO SCH ×2 (08:57→17:16)
[2017-09-02] MEDS ORDERED: FUROSEMIDE 40 MG TABLET PO SCH (09:00)
[2017-09-02] MEDS: HYDROcodone/APAP 5/325MG TABLET PO PRN ×2 (10:25→17:21)
--- NOTE | 2017-09-02 12:40 | Internal Med History&Physical ---
Medical - H&P: [facility] Patient information: Note initiated : 09/02/17 at 12:37 pm Service Date, if different from initiated Date: [] Patient: Shanda Rhodes a 71 y/o F admitted on 09/01/17 for chronic heart failure. Chief Complaint: [] History of present illness: Ms. Rhodes is a 71 year old Female with h/o dm, chf, renal failure, recently admitted to the hospital for chf exacerbation, acute on chr renal failure, was placed on HD then, and HCAP pneumonia See d/c summary from for hospital course patient was placed on hemodialysis, with improvement in symptoms, pt chest x ray cleared, pt is off oxygen. Pt hospital course complicated by pna, treated for 7 days with iv antibiotics with good response Pt planned to have HD yesterday, and then plan for d/c on Sunday to snf, was therefore admitted to Swing bed status till discharge to swing. pt this am has no complaints. glucose values reviewed, she was sitting in bed tolerating po diet well. She denies any headache, no dizziness. No vision complaints. No artery complaints. No difficulty in swallowing. No chest pain, no shortness of breath , abdominal pain, no nausea, no vomiting. No constipation, no diarrhea All systems: reviewed and no additional remarkable complaints except as stated ( as per PHI, no complaints) Medical - H&P: PMH Medical history: Medical History (Last Reviewed 03/23/17 @ 10:53 by Aimee Esparza MD) Upper respiratory infection (Acute) Urinary tract infection (Acute) CVA (cerebral vascular accident) (Acute) UTI (urinary tract infection) (Acute) Vasovagal syncope (Acute) Sinusitis (Acute) Diabetes type 1, uncontrolled (Acute) Injury of right rotator cuff (Acute) Community acquired pneumonia (Acute) Pneumonia (Acute) CHF (congestive heart failure) (Acute) Congestive heart failure (Acute) CKD (chronic kidney disease), stage IV (Acute) Myoclonus (Acute) CHF (congestive heart failure) (Acute) Type 2 diabetes mellitus (Chronic) Hyperparathyroidism due to renal insufficiency (Chronic) Anemia (Chronic) Hypertensive renal disease (Chronic) CKD (chronic kidney disease), stage III (Chronic) Diabetic ketoacidosis associated with type 2 diabetes mellitus (Acute) Family history: reviewed and not pertinent Social history: lived home but plans to go to snf Medical - H&P: Meds Home Medications Medication Instructions Recorded Confirmed Type Levothyroxine Sodium [Synthroid] 112 mcg PO QAMAC 07/03/15 09/01/17 History Accu-Chek 1 each FS ACHS #30 strip 07/05/15 09/01/17 Rx levETIRAcetam [Levetiracetam] 500 mg PO BID 11/10/16 09/01/17 History Clopidogrel Bisulfate [Plavix] 75 mg PO DAILY 11/20/16 09/01/17 History Acetaminophen [Tylenol] 650 mg PO Q4-6HP PRN #0 tab 11/24/16 09/01/17 Rx Calcium Acetate [Phoslo] 667 mg PO TIDCC #90 cap 11/24/16 09/01/17 Rx Insulin Lispro [Humalog] See Protocol SQ ACHS #0 unit 11/24/16 09/01/17 Rx clonidine HCl 0.1 mg tablet 0.1 mg PO TID tab 12/07/16 09/01/17 History metoclopramide 5 mg tablet 5 mg PO BID tab 12/07/16 09/01/17 History gabapentin 300 mg tablet 300 mg PO HS 01/08/17 09/01/17 History insulin glargine (U-100) 100 15 units SQ DAILY ml 01/08/17 09/01/17 History unit/mL (3 mL) subcutaneous pen Carvedilol [Coreg] 25 mg PO BID 08/22/17 09/01/17 History Ferrous Sulfate [High Potency Iron] 65 mg PO BID 08/22/17 09/01/17 History Furosemide [Lasix] 40 mg PO DAILY 08/22/17 09/01/17 History Hydrocodone/APAP 7.5/325Mg [[place] 0.5 tab PO Q6HP PRN 08/22/17 09/01/17 History 7.5-325Mg] Prochlorperazine Maleate 10 mg PO Q6HP PRN 08/22/17 09/01/17 History [Compazine] amLODIPine [Norvasc] 10 mg PO BID 08/22/17 09/01/17 History Insulin Glargine, Human [Lantus] 7 units SQ HS 09/01/17 09/01/17 History Allergies Allergy/AdvReac Type Severity Reaction Status Date / Time lactose AdvReac Mild Diarrhea Verified 09/01/17 15:23 Medical - H&P: Exam - Constitutional Vitals: Temp Pulse Resp BP Pulse Ox 97.5 F 69 18 166/64 97 09/02/17 07:46 09/02/17 03:50 09/02/17 07:46 09/02/17 07:46 09/02/17 07:46 Exam: GENERAL: The patient is a well-developed, well-nourished in no apparent distress. Is alert and oriented x3. VITAL SIGNS: Reviewed and as noted elsewhere. HEENT: Head is normocephalic and atraumatic. Extraocular muscles are intact. Pupils are equal, round, and reactive to light. Nares appeared normal. Mouth appears any without lesions. Mucous membranes are moist. NECK: Normal to inspection, Supple, No lymphadenopathy or thyromegaly. tunneled Catheter noted. No active bleeding LUNGS: Air entry equal on both sides, no wheezing, crackles or rhonchi noted. No accessory muscles of respiration HEART: Regular rate and rhythm normal, S1 and S2 heard, no Gallop, S3 or Rub Noted, No Gross murmur heard. ABDOMEN: Soft, nontender, and nondistended. Positive bowel sounds. No hepatosplenomegaly was noted. EXTREMITIES: No cyanosis, clubbing, rash, lesions or edema. NEUROLOGIC: Cranial nerves II through XII are grossly intact. Motor and Sensory System Grossly Intact PSYCHIATRIC: Normal affect, Normal Mood. Appropriate Behavior. SKIN: No ulceration or wounds noted, No jaundice, No rash noted. Medical - H&P: A/P - Narrative A/P Narrative: 71-year-old female with a history of congestive heart failure, chronic kidney disease, dementia presents with failure to thrive at home, found to have volume overload/congestive heart failure as well as acute hypoxic respiratory failure, s/p treatment,now in swing bed status for HD and plan for d/c to snf Asssesstment acute on chronic congestive heart failure-fluid removal by dialysis, clinically euvolemic, cut the dose of Bumex to 1 mg once a day. Discussed this with nephrology end-stage renal disease-on hemodialysis, right-sided tunnel catheter placed patient on dialysis tolerated session well yesterday. Management as per nephrology Atrial fibrillation, paroxysmal, stable, not in RVR. Patient does not complain of any palpitations on beta blockers and Plavix Pneumonia. status post 7 days of IV antibiotics. microbiology was negative. On the previous admission Acute hypoxic respiratory failure. required BiPAP due to fluid overload presently saturating well on room air Dementia. will discharged to [facility], stable today Type 2 diabetes mellitus. :, usually takes Lantus 15 units in the morning and 7 in the night, given hypoglycemia yesterday. She was given only 15 units in the morning today. She did not get Lantus at bedtime. Her glucose level was fine today Right carotid bruit. : outpatient vascular consult for possible intervention h/o cva on statin as well as Plavix seizure disorder: on Keppra. No seizure activities CODE STATUS is discussed with the patient, is DO NOT RESUSCITATE. Prophylaxis: Subcutaneous heparin. Medical - H&P: Qual - VTE Deep Vein Thrombosis/Pulmonary Embolism Present on Admission: No Social History - Tobacco smoking status: Former smoker
[2017-09-02] MEDS: GABAPENTIN 100 MG CAPSULE PO SCH (20:37)
[2017-09-03] MEDS: HYDROcodone/APAP 5/325MG TABLET PO PRN ×2 (06:12→12:42)
[2017-09-03] MEDS: 0.9 % SODIUM CHLORIDE 10 ML SYRINGE IV SCH (06:13)
[2017-09-03] MEDS: LEVOTHYROXINE SODIUM 112 MCG TABLET PO SCH (06:38)
[2017-09-03] MEDS: METOCLOPRAMIDE 10 MG TABLET PO SCH (06:38)
[2017-09-03] MEDS: INSULIN LISPRO 1 UNIT/0.01 ML UNIT SQ SCH ×2 (06:40→11:58)
[2017-09-03] MEDS: FERROUS SULFATE 325 MG TABLET PO SCH (06:45)
[2017-09-03] MEDS: SEVELAMER 800 MG TABLET PO SCH ×2 (06:45→12:02)
[2017-09-03] MEDS: CARVEDILOL 12.5 MG TABLET PO SCH (06:46)
[2017-09-03] MEDS: levETIRAcetam 500 MG TABLET PO SCH ×2 (06:46→08:09)
[2017-09-03] MEDS: cloNIDine HCL 0.1 MG TABLET PO SCH ×2 (06:46→08:08)
[2017-09-03] MEDS: CLOPIDOGREL 75 MG TABLET PO SCH ×2 (06:46→08:09)
[2017-09-03] MEDS: amLODIPine 10 MG TABLET PO SCH ×2 (06:46→08:09)
[2017-09-03] MEDS: BUMETANIDE 1 MG TABLET PO SCH ×2 (06:46→08:08)
[2017-09-03] MEDS: HEPARIN 5,000 UNIT/ML VIAL SQ SCH ×2 (06:47→08:08)
[2017-09-03] MEDS: INSULIN GLARGINE, HUMAN 1 UNIT/0.01 ML SQ SCH (11:57)
--- NOTE | 2017-09-03 11:59 | Discharge Summary ---
Medical - DS: Prov Patient information: Note initiated : 09/03/17 at 11:55 am Service Date, if different from initiated Date: [] Patient: Shanda Rhodes 71 y/o F admitted on 09/01/17 for CHF, Volume Overload, Hypoxia. Chief Complaint: [] Date of admission: 09/01/17 14:06 Discharge date: 09/03/17 Primary care physician: Scott Madrid Consults: 09/03/17 09:23 Consult to Physician [CONS] Routine Comment: referral Consulting Provider: [employer] Reason For Exam: Physician to Consult Discharging clinician: Samra Ram Medical - DS: Meds - Discharge Medications Prescriptions: HYDROcodone/APAP 5/325MG [[place] 5-325Mg] 1 tab PO Q6HP PRN #30 tablet PRN Reason: Pain Active and Home Medications: Home Medications Levothyroxine Sodium [Synthroid] 112 mcg PO QAMAC 07/03/15 [History Confirmed Last Taken 09/01/17 09:30] Accu-Chek 1 each FS ACHS #30 strip 07/05/15 [Rx Confirmed 09/01/17 Last Taken 12:00] levETIRAcetam [Levetiracetam] 500 mg PO BID 11/10/16 [History Confirmed Last Taken 09/01/17 09:30] Clopidogrel Bisulfate [Plavix] 75 mg PO DAILY 11/20/16 [History Confirmed Last Taken 08/21/17] Acetaminophen [Tylenol] 650 mg PO Q4-6HP PRN #0 tab 11/24/16 [Rx Confirmed 09/01 Last Taken 08/31/17 16:00] Calcium Acetate [Phoslo] 667 mg PO TIDCC #90 cap 11/24/16 [Rx Confirmed Last Taken 08/21/17] Insulin Lispro [Humalog] See Protocol SQ ACHS #0 unit 11/24/16 [Rx Confirmed 05/09 Last Taken 08/21/17] clonidine HCl 0.1 mg tablet 0.1 mg PO TID tab 12/07/16 [History Confirmed 09/01 Last Taken 08/31/17 22:20] metoclopramide 5 mg tablet 5 mg PO BID tab 12/07/16 [History Confirmed Last Taken 08/21/17] gabapentin 300 mg tablet 300 mg PO HS 01/08/17 [History Confirmed 09/01/17 Last Taken 08/31/17 22:20] insulin glargine (U-100) 100 unit/mL (3 mL) subcutaneous pen 15 units SQ DAILY ml 01/08/17 [History Confirmed 09/01/17 Last Taken 08/21/17] Carvedilol [Coreg] 25 mg PO BID 08/22/17 [History Confirmed 09/01/17 Last Taken 08/31/17 17:15] Ferrous Sulfate [High Potency Iron] 65 mg PO BID 08/22/17 [History Confirmed 05/09 Last Taken 09/01/17 09:30] Furosemide [Lasix] 40 mg PO DAILY 08/22/17 [History Confirmed 09/01/17 Last Taken 08/21/17] Hydrocodone/APAP 7.5/325Mg [[place] 7.5-325Mg] 0.5 tab PO Q6HP PRN 08/22/17 [ History Confirmed 09/01/17 Last Taken 09/01/17 04:00] Prochlorperazine Maleate [Compazine] 10 mg PO Q6HP PRN 08/22/17 [History Confirmed 09/01/17 Last Taken Unknown] amLODIPine [Norvasc] 10 mg PO BID 08/22/17 [History Confirmed 09/01/17 Last Taken 08/31/17 22:30] Insulin Glargine, Human [Lantus] 7 units SQ HS 09/01/17 [History Confirmed 09/01 Last Taken Unknown] Medical - DS: Hosp Hospital course: Ms. Rhodes is a 71 year old F He presented to the hospital from home with progressive failure to thrive. she was admitted to the hospital and treated for same the patient was stable, and was later transferred to swing bed status for ongoing hemodialysis. The patient had 2 rounds of hemodialysis and tolerated them well, the patient was treated with PT, OT and ST for ongoing rehab which she tolerated well The patient is being discharged to snf for ongoing rehab. see below for A/P for her chr conditions. CHF: acute diastolic congestive heart failure Patient's systolic function is 55. ,she patient required BiPAP to manage her respiratory failure on presentation, late transition to nasal cannula. She was treated with intravenous diuretics. Her kidney function worsened and she needed to be initiated on dialysis. Nephrology help manage initiation of dialysis. With the initiation of dialysis. Patient fluid balance was negative and a chest x-ray cleared. The patient will continue to be on Bumex. at the time of discharge, patient is on room air. acute on chronic renal failure: seen by nephrology, patient still function worsened during the hospital stay, after extensive discussion with the patient and family, it was decided to initiate dialysis. Patient is now on dialysis. Initially, a temporary catheter was placed by Dr. NICHOLS, patient had a tunneled catheter placed yesterday on 31 August 2017. Patient will get her scheduled dialysis today. As an outpatient. Nephrology is following the patient The patient's hospital course was complicated by a healthcare associated pneumonia, patient was treated with 7 days of IV antibiotics, vancomycin and Zosyn, patient responded to the treatment very well. Microbiology was negative diabetes- the patient has brittle diabetes, takes 15 units of Lantus in the morning and 7 in the night. Her glucose level is difficult to manage because her diet is not consistent. On increasing the Lantus to 15 twice a day the patient became hypoglycemic in the morning, a.m. dose of Lantus was held and the glucose level increased back. We will try to resume Lantus at 15 units just once a day and use sliding scale. carotid, artery stenosis, will need outpatient vascular evaluation to determine if any intervention is necessary. Discharge diagnosis: esrd, CHF EXACERBATION. - Time Spent with Patient Total time spent providing and/or coordinating discharge services: Greater than 30 minutes Medical - DS: Exam - Constitutional Vitals: Vital Signs Temp Pulse Resp BP Pulse Ox 09/03/17 06:20 99 F 18 150/66 95 09/02/17 20:25 98.8 F 62 16 150/66 93 09/02/17 14:41 126/76 Intake and Output 09/02/17 09/03/17 09/03/17 21:59 05:59 13:59 Intake Total 350 / 350 150 / 150 Output Total 75 / 75 325 / 325 200 / 200 Balance 275 / 275 -175 / -175 -200 / -200 Intake: Oral 350 / 350 150 / 150 Output: Void Amount 75 / 75 325 / 325 200 / 200 Other: Meal Dinner Percent of Meal Consumed 100% # Voids 1 Weight 138 lb Additional comments: Constitutional; Afebrile, cooperative, alert, not in distress. Eyes- No icterus, , No periorbital swelling Ears- Ext ear normal, hearing normal to conversation. Neck- Midline trachea, supple Respiratory system: Air Entry equal on both sides, No crackles or wheezing, no rhonchi. CVS- Rate rhythm regular, S1,S2 heard, no gallop, no rub. 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 Medical - DS: A/P - Patient/Caregiver Discharge Instructions Activity: as per physical therapy Diet: Renal/Consistent Carbs Additional Instructions: Continue scheduled dialysis as per Nephrology recommendation OT/PT/ST rehab at SNF GO to the ER if worsening condition, fever, chest pain or shortness of breath Prescriptions: HYDROcodone/APAP 5/325MG [[place] 5-325Mg] 1 tab PO Q6HP PRN #30 tablet PRN Reason: Pain - Follow up Plan Follow up with: Scott Madrid MD [Primary Care Provider] - Monalisa Rodgers [Non-Staff] - Aimee Esparza MD [Physician] - Disposition: [facility] Prognosis: Fair Rehab Potential: Fair I certify that the patient requires SNF services: Yes Overall status at discharge: patient is progressing back to baseline Medical - DS: Qual - VTE Deep Vein Thrombosis/Pulmonary Embolism Present on Admission: No
== END 2017-09-03 13:12 | DRG 291 ==
LOC: MEDSUR 13:59
PROVIDERS: ADMIT Internal Medicine; ATTEND Internal Medicine

== ENCOUNTER 2017-12-16 21:57 | Inpatient (IN) ==
[2017-12-16] MEDS ORDERED: ACETAMINOPHEN 325 MG TABLET PO ONE (22:24)
[2017-12-16 23:57] LABS: Basophils # (Auto) 0.1 K/mcL (0.0-0.3); Basophils % (Auto) 0.8 % (0.0-2.0); Eosinophils # (Auto) 0.5 K/mcL (0.0-0.7); Eosinophils % (Auto) 4.6 % (0.0-7.0); Granulocytes % (Auto) 82.6 % (38.0-78.0); Lymphocytes # (Auto) 0.7 K/mcL (1.5-4.8); Lymphocytes % (Auto) 6.2 % (15.5-49.0); Mean Cell Volume 90.2 fL (80.0-100.0); Mean Corpuscular HGB Conc 33.5 g/dL (31.0-36.0); Mean Corpuscular Hemoglobin 30.2 pg (26.0-34.0); Monocytes # (Auto) 0.7 K/mcL (0.1-0.9); Monocytes % (Auto) 5.8 % (1.0-12.0); Platelet Count 494 K/mcL (140-440); RBC 3.02 M/mcL (4.00-5.20); Red Cell Distribution Width 13.3 % (11.5-14.5)
[2017-12-17 00:06] LABS: ALT/SGPT < 5 U/l (0-40); Albumin/Globulin Ratio 0.9 (1.0-2.3); Alkaline Phosphatase 100 U/L (39-117); Blood Urea Nitrogen 45 mg/dl (8-23)
[2017-12-17 00:21] LABS: Appearance,Urine HAZY; Bacteria,Urine FEW /hpf (0); Bilirubin,Urine NEG (NEG); Color,Urine YELLOW; Glucose,Urine (UA) 150 mg/dL (NEG); Leukocyte Esterase,Urine NEG /uL (NEG); Mucus,Urine FEW /hpf (0); Protein,Urine >=500 mg/dL (NEG); Specific Gravity,Urine 1.017 (1.000-1.035); Urine Blood NEG mg/dL (<0.03); Urine Hyaline Cast 3 /lpf (0-2); Urine RBC 3 /hpf (0-1); Urine Squamous Epithelial Cell 7 /hpf (0-4); Urine Transitional Epi Cells 1 /hpf (0-2); Urine WBC 13 /hpf (0-4); Urobilinogen,Urine NEG (NEG)
[2017-12-17 01:00] LABS: Basophils % (Manual) 3 % (0-2); Eosinophils % (Manual) 7 % (0-7); Lymphocytes % 3 % (15-49); Monocytes % (Manual) 1 % (1-12); Platelet Estimate INCREASED (NORMAL); RBC Morphology NORMAL (NORMAL); Segmented Neutrophils % 86 % (38-78)
--- NOTE | 2017-12-17 01:10 | Emergency Department Note ---
Fever HPI - General Chief Complaint: Fever Stated Complaint: Fever, Lethargy, confusion Time Seen by Provider: 12/16/17 22:37 Mode of arrival: ambulatory - History of Present Illness HPI Narrative: Patient had dialysis on Sunday 2 days ago. And been having good days until last night when she started developing a fever and increasing weakness.. Denies any cough. Denies any urgency frequency dysuria. Has been more sleepy than normal. She rise with a temperature 102 and sats running at 89% on room air but with 2 L up to 96%. Blood pressure is 176/61 initially patient is due for dialysis tomorrow on Sunday. Patient is oriented 3 no neurologic findings there is been no nausea vomiting no diarrhea constipation issues. Eyes any chest pain no shortness of breath - Related Data Home Medications Medication Instructions Recorded Confirmed Levothyroxine Sodium [Synthroid] 112 mcg PO QAMAC 07/03/15 12/16/17 levETIRAcetam [Levetiracetam] 500 mg PO BID 11/10/16 12/16/17 Clopidogrel Bisulfate [Plavix] 75 mg PO DAILY 11/20/16 12/16/17 metoclopramide 5 mg tablet 5 mg PO BID tab 12/07/16 12/16/17 Carvedilol [Coreg] 25 mg PO BID 08/22/17 12/16/17 Ferrous Sulfate [High Potency Iron] 65 mg PO BID 08/22/17 12/16/17 Prochlorperazine Maleate 10 mg PO Q6HP PRN 08/22/17 12/16/17 [Compazine] amLODIPine [Norvasc] 10 mg PO BID 08/22/17 12/16/17 Previous Rx's Medication Instructions Recorded Acetaminophen [Tylenol] 650 mg PO Q4-6HP PRN #0 tab 11/24/16 Accu-Chek 1 each FS ACHS strip 09/03/17 Bumetanide [Bumex] 1 mg PO DAILY tab 09/03/17 Dextrose [Insta-Glucose] 15 gm PO PRN PRN oral.susp 09/03/17 Gabapentin [Neurontin] 100 mg PO HS cap 09/03/17 HYDROcodone/APAP 5/325MG [[place] 1 tab PO Q6HP PRN #30 tab 09/03/17 5-325Mg] Insulin Glargine, Human [Lantus] 15 unit SQ DAILY unit 09/03/17 Insulin Lispro [Humalog] See Protocol SQ ACHS unit 09/03/17 sevelamer carbonate 800 mg tablet 800 mg PO TIDCC #90 tab 10/11/17 spirometers and accessories See Dose Instructions .ROUTE 11/07/17 .MEDSUPPLY #1 each clonidine HCl 0.2 mg tablet 0.2 mg PO TID #90 tab 12/05/17 Allergies Allergy/AdvReac Type Severity Reaction Status Date / Time lactose AdvReac Mild Diarrhea Verified 09/01/17 15:23 Review of Systems All systems ED: reviewed and negative except as stated. Constitutional: Reports: fever, chills Eyes: Denies: eye pain ENT ED: Denies: ear pain, throat pain Cardiovascular: Denies: chest pain Respiratory: Denies: cough Gastrointestinal: Denies: abdominal pain, nausea, vomiting Genitourinary: Denies: dysuria, urgency Musculoskeletal: Denies: back pain Integumentary: Denies: rash, lesions Neurological: Denies: headache Fever PMH - Past Medical History Medical history: Reports: atrial fibrillation, CHF, coronary artery disease, CVA , DM, hyperlipidemia, hypertension, myocardial infarction, seizures, thyroid disease, other Psychiatric history: Reports: no psych history [employer] history: Reports: non-contributory Family history: Reports: non-contributory - Social History smoking status: Former smoker Alcohol use: Reports: Occasionally Drug use: Reports: none Physical Exam Limitations: no limitations Head: atraumatic Eye: Present: normal appearance ENT: normal exam, normal oropharynx, mucous membranes moist Neck: Present: normal inspection, full ROM Chest: Present: normal inspection, symmetric chest wall rise Respiratory: Present: normal lung sounds bilaterally. Absent: respiratory distress, wheezes Cardiovascular: Present: regular rate, normal rhythm. Absent: bradycardia Abdominal: Present: soft. Absent: distention, tenderness, guarding, rebound Extremities: Present: normal inspection, full ROM. Absent: tenderness Back: Present: normal inspection, full ROM. Absent: tenderness, CVA tenderness (R), CVA tenderness (L) Patient oriented to: Present: person, place, time Speech: Present: fluid speech Cranial nerves: EOM function (II, III, IV, ): Normal, facial sensation (V): Normal, facial palsy (VII): Normal, gag reflex (IX): Normal, spinal accessory function (XI): Normal, tongue deviation (XII): Normal Cerebellar function: finger to nose: Normal Cerebellar function: normal gait Upper motor neuron exam: Babinski sign: Absent bilaterally Sensory exam upper extremity: Normal: light touch Coma Scale Eye Opening: Spontaneous Coma Scale Motor Response: Obeys Commands Coma Scale Verbal Response: Oriented Coma Scale Total: 15 Psychiatric: Present: normal affect, normal mood Skin: Present: warm, dry, intact Course Vital Signs Temperature 102 F H 12/16/17 21:58 Pulse Rate 65 12/16/17 21:58 Respiratory Rate 16 12/16/17 21:58 Blood Pressure 176/61 12/16/17 21:58 Pulse Oximetry (%) 96 12/16/17 21:58 Temperature 100.0 F H 12/17/17 00:33 Pulse Rate 60 12/17/17 00:07 Respiratory Rate 21 12/17/17 00:07 Blood Pressure 166/57 12/17/17 00:01 Pulse Oximetry (%) 97 12/17/17 00:07 Fever - MDM Narrative Medical decision making narrative: wbc elevated at 11,300 with 83 segs no band ua shows 18 wbc, chest infiltrate and some edema. lactic was 1.5. Dr Lucero marketing admin cantacted pt to be admitted by hospitalist for fever and weakness ekg nsr Dr Colbert here to se pt - Lab Data Result diagrams: 12/16/17 22:44 12/16/17 22:44 Lab Results 12/16/17 12/16/17 12/16/17 Range/Units 22:44 22:44 22:44 WBC 11.7 H (4.5-11.0) K/mcL RBC 3.02 L (4.00-5.20) M/mcL Hgb 9.1 L (12.0-15.0) g/dL Hct 27.2 L (36.0-48.0) % POC Hct 25.0 L (36.0-48.0) % MCV 90.2 (80.0-100.0) fL MCH 30.2 (26.0-34.0) pg MCHC 33.5 (31.0-36.0) g/dL RDW 13.3 (11.5-14.5) % Plt Count 494 H (140-440) K/mcL MPV 6.8 L (7.4-10.4) fL Gran % 82.6 H (38.0-78.0) % Lymph % (Auto) 6.2 L (15.5-49.0) % [place] % (Auto) 5.8 (1.0-12.0) % Eos % (Auto) 4.6 (0.0-7.0) % Baso % (Auto) 0.8 (0.0-2.0) % Gran # 9.7 H (1.8-8.0) K/mcL Lymph # (Auto) 0.7 L (1.5-4.8) K/mcL [place] # (Auto) 0.7 (0.1-0.9) K/mcL Eos # (Auto) 0.5 (0.0-0.7) K/mcL Baso # (Auto) 0.1 (0.0-0.3) K/mcL Total Counted 100 Seg Neutrophils % 86 H (38-78) % Band Neutrophils % Not Reportable Lymphocytes % 3 L (15-49) % Monocytes % (Manual) 1 (1-12) % Eosinophils % (Manual) 7 (0-7) % Basophils % (Manual) 3 H (0-2) % Platelet Estimate Increased (NORMAL) RBC Morphology Normal (NORMAL) VBG Lactic Acid 1.5 (0.5-2.2) mmol/L POC Sodium 132 L (133-145) mmol/L Sodium 132 L (133-145) mmol/L POC Potassium 4.9 (3.3-5.1) mmol/L Potassium 5.1 (3.3-5.1) mmol/L POC Chloride 95 L (96-108) mmol/L Chloride 93 L (96-108) mmol/L Carbon Dioxide 28 (22-30) mmol/L POC Total CO2 27 (22-30) mmol/L Anion Gap 11.0 (8-16) POC BUN 43 H (8-23) mg/dl BUN 45 H (8-23) mg/dl Creatinine 2.5 H (0.6-1.1) mg/dl POC Creatinine 2.7 H (0.6-1.1) mg/dl GFR Calculation 18 Glucose 109 H (70-105) mg/dL POC Glucose 113 H (70-105) mg/dL Calcium 9.0 (8.6-10.4) mg/dl POC WB Ioniz Calcium 1.20 (1.16-1.32) mmol/L Total Bilirubin 0.2 (0.0-1.0) mg/dL AST 10 (0-37) U/l ALT < 5 (0-40) U/l Alkaline Phosphatase 100 (39-117) U/L Total Protein 6.3 (5.9-8.4) gm/dL Albumin 3.0 L (3.2-5.2) gm/dL Globulin 3.3 (2.2-3.7) gm/dL Albumin/Globulin Ratio 0.9 L (1.0-2.3) Urine Color Urine Appearance Urine pH (5.0-9.0) Ur Specific Penrose (1.000-1.035) Urine Protein (NEG) mg/dL Urine Glucose (UA) (NEG) mg/dL Urine Ketones (NEG) mg/dL Urine Occult Blood (<0.03) mg/dL Urine Nitrate (NEG) Urine Bilirubin (NEG) mg/dL Urine Urobilinogen (NEG) mg/dL Ur Leukocyte Esterase (NEG) /uL Urine RBC (0-1) /hpf Urine WBC (0-4) /hpf Ur Squamous Epith Cells (0-4) /hpf Ur Transition Epith Cell (0-2) /hpf Urine Bacteria (0) /hpf Hyaline Casts (0-2) /lpf Urine Mucus (0) /hpf Ur Culture Indicated? 12/16/17 Range/Units 23:25 WBC (4.5-11.0) K/mcL RBC (4.00-5.20) M/mcL Hgb (12.0-15.0) g/dL Hct (36.0-48.0) % POC Hct (36.0-48.0) % MCV (80.0-100.0) fL MCH (26.0-34.0) pg MCHC (31.0-36.0) g/dL RDW (11.5-14.5) % Plt Count (140-440) K/mcL MPV (7.4-10.4) fL Gran % (38.0-78.0) % Lymph % (Auto) (15.5-49.0) % [place] % (Auto) (1.0-12.0) % Eos % (Auto) (0.0-7.0) % Baso % (Auto) (0.0-2.0) % Gran # (1.8-8.0) K/mcL Lymph # (Auto) (1.5-4.8) K/mcL [place] # (Auto) (0.1-0.9) K/mcL Eos # (Auto) (0.0-0.7) K/mcL Baso # (Auto) (0.0-0.3) K/mcL Total Counted Seg Neutrophils % (38-78) % Band Neutrophils % Lymphocytes % (15-49) % Monocytes % (Manual) (1-12) % Eosinophils % (Manual) (0-7) % Basophils % (Manual) (0-2) % Platelet Estimate (NORMAL) RBC Morphology (NORMAL) VBG Lactic Acid (0.5-2.2) mmol/L POC Sodium (133-145) mmol/L Sodium (133-145) mmol/L POC Potassium (3.3-5.1) mmol/L Potassium (3.3-5.1) mmol/L POC Chloride (96-108) mmol/L Chloride (96-108) mmol/L Carbon Dioxide (22-30) mmol/L POC Total CO2 (22-30) mmol/L Anion Gap (8-16) POC BUN (8-23) mg/dl BUN (8-23) mg/dl Creatinine (0.6-1.1) mg/dl POC Creatinine (0.6-1.1) mg/dl GFR Calculation Glucose (70-105) mg/dL POC Glucose (70-105) mg/dL Calcium (8.6-10.4) mg/dl POC WB Ioniz Calcium (1.16-1.32) mmol/L Total Bilirubin (0.0-1.0) mg/dL AST (0-37) U/l ALT (0-40) U/l Alkaline Phosphatase (39-117) U/L Total Protein (5.9-8.4) gm/dL Albumin (3.2-5.2) gm/dL Globulin (2.2-3.7) gm/dL Albumin/Globulin Ratio (1.0-2.3) Urine Color Yellow Urine Appearance Hazy Urine pH 6.0 (5.0-9.0) Ur Specific [place] 1.017 (1.000-1.035) Urine Protein >=500 A (NEG) mg/dL Urine Glucose (UA) 150 A (NEG) mg/dL Urine Ketones Neg (NEG) mg/dL Urine Occult Blood Neg (<0.03) mg/dL Urine Nitrate Neg (NEG) Urine Bilirubin Neg (NEG) mg/dL Urine Urobilinogen Neg (NEG) mg/dL Ur Leukocyte Esterase Neg (NEG) /uL Urine RBC 3 H (0-1) /hpf Urine WBC 13 H (0-4) /hpf Ur Squamous Epith Cells 7 H (0-4) /hpf Ur Transition Epith Cell 1 (0-2) /hpf Urine Bacteria Few A (0) /hpf Hyaline Casts 3 H (0-2) /lpf Urine Mucus Few (0) /hpf Ur Culture Indicated? No Disposition Pt seen by [facility]ORER/PA only: No Clinical Impression: Fever and chills Pneumonia Qualifiers: Pneumonia type: due to unspecified organism Laterality: bilateral Lung location : lower lobe of lung Qualified Code(s): J18.1 - Lobar pneumonia, unspecified organism Disposition: Xfer As Inpt ([facility]) Condition: Fair Referrals: Gifty Chisholm ARNP [Primary Care Provider] - Time of Disposition: 01:32
[2017-12-17] MEDS ORDERED: cefTRIAXone 1 GM VIAL IV ONE ×2 (01:16→02:44)
[2017-12-17] MEDS ORDERED: ACETAMINOPHEN 325 MG TABLET PO PRN (02:44)
[2017-12-17] MEDS ORDERED: PROCHLORPERAZINE MALEATE 10 MG TABLET PO PRN (02:44)
[2017-12-17] MEDS ORDERED: DEXTROSE 31 GM ORAL.SUSP PO PRN (02:44)
[2017-12-17] MEDS ORDERED: DEXTROSE 50% 50 ML VIAL IV PRN (02:44)
[2017-12-17] MEDS ORDERED: HYDROcodone/APAP 5/325MG TABLET PO PRN (02:44)
--- NOTE | 2017-12-17 05:07 | XRay Report ---
INDICATION: Fever. Confusion TECHNIQUE: AP chest x-ray,portable upright COMPARISON: 12/07/2017, 10/08/2017, 08/29/2017 FINDINGS:No change in left transvenous pacemaker leads. No change in large caliber right central venous catheter. There is cardiomegaly. There are septal lines and mild peribronchial thickening consistent with interstitial pulmonary edema. There are bibasilar infiltrates, worse on the left. There is a left pleural effusion. Predominant left basilar infiltrate and effusion is somewhat atypical for pulmonary edema and superimposed pneumonia is possible. Clinical correlation and follow-up radiographs recommended. IMPRESSION: 1. Cardiomegaly and interstitial pulmonary edema 2. Bibasilar infiltrates, left greater than right. Small left effusion. Superimposed pneumonia should be considered Interpreted and Authenticated by: Pradeep Garcia 12/17/17
[2017-12-17] MEDS: 0.9 % SODIUM CHLORIDE 10 ML SYRINGE IV SCH ×3 (06:04→21:08)
--- NOTE | 2017-12-17 06:10 | Nephrology Consult Note ---
History of Present Illness - Reason for Consult Patient information: Note initiated : 12/17/17 at 6:08 am Shanda Rhodes is a [id number] female presented to ED and admitted on 12/17/17. Consult date: 12/17/17 end stage renal disease Requesting physician: Charlie Patel - Chief Complaint Fever - History of Present Illness Shanda Rhodes is a [id number] female with end stage renal disease stage on chronic hemodialysis (through tunneled hemodialysis catheter, on MWF, at [facility], followed by Dr Esparza), secondary hyperparathyroidism, chronic anemia due to renal failure, hypertension and diabetes mellitus type 2, coronary artery disease s/p stents, s/p AICD placement, presented to ED and admitted on 12/17/17. Review of Systems Constitutional: weakness, no headache(s) Nose, mouth and throat: no nasal congestion, no sore throat Cardiovascular: no chest pain, no edema Respiratory: dyspnea, no wheezing Gastrointestinal: no abdominal pain, no diarrhea Genitourinary: no hematuria Musculoskeletal: no back pain, no neck pain Integumentary: no erythema, no rash Neurological: weakness, no focal weakness Psychiatric: no anxiety, no panic attacks Endocrine: no cold intolerance, no heat intolerance Hematologic/Lymphatic: no easy bleeding, no easy bruising Allergic/Immunologic: no throat swelling, no uticaria Past History Past medical history: Medical History (Last Reviewed 10/03/17 @ 14:59 by Ton Travis PA-C) Upper respiratory infection (Acute) Urinary tract infection (Acute) CVA (cerebral vascular accident) (Acute) UTI (urinary tract infection) (Acute) Vasovagal syncope (Acute) Sinusitis (Acute) Diabetes type 1, uncontrolled (Acute) Injury of right rotator cuff (Acute) Community acquired pneumonia (Acute) Pneumonia (Acute) CHF (congestive heart failure) (Acute) Congestive heart failure (Acute) CKD (chronic kidney disease), stage IV (Acute) Myoclonus (Acute) CHF (congestive heart failure) (Acute) Type 2 diabetes mellitus (Chronic) Hyperparathyroidism due to renal insufficiency (Chronic) Anemia (Chronic) Hypertensive renal disease (Chronic) CKD (chronic kidney disease), stage III (Chronic) Diabetic ketoacidosis associated with type 2 diabetes mellitus (Acute) Past family history: Mother of aneurysm. Father of complications of diabetes and end stage renal disease. Past social history: Lives with daughter. Quit smoking 05/14/2012. Medications and Allergies Home Medications Medication Instructions Recorded Confirmed Type Levothyroxine Sodium [Synthroid] 112 mcg PO QAMAC 07/03/15 12/16/17 History levETIRAcetam [Levetiracetam] 500 mg PO BID 11/10/16 12/16/17 History Clopidogrel Bisulfate [Plavix] 75 mg PO DAILY 11/20/16 12/16/17 History Acetaminophen [Tylenol] 650 mg PO Q4-6HP PRN #0 tab 11/24/16 12/16/17 Rx metoclopramide 5 mg tablet 5 mg PO BID tab 12/07/16 12/16/17 History Carvedilol [Coreg] 25 mg PO BID 08/22/17 12/16/17 History Ferrous Sulfate [High Potency Iron] 65 mg PO BID 08/22/17 12/16/17 History Prochlorperazine Maleate 10 mg PO Q6HP PRN 08/22/17 12/16/17 History [Compazine] amLODIPine [Norvasc] 10 mg PO BID 08/22/17 12/16/17 History Accu-Chek 1 each FS ACHS strip 09/03/17 12/16/17 Rx Bumetanide [Bumex] 1 mg PO DAILY tab 09/03/17 12/16/17 Rx Dextrose [Insta-Glucose] 15 gm PO PRN PRN oral.susp 09/03/17 12/16/17 Rx Gabapentin [Neurontin] 100 mg PO HS cap 09/03/17 12/16/17 Rx HYDROcodone/APAP 5/325MG [[place] 1 tab PO Q6HP PRN #30 tab 09/03/17 12/16/17 Rx 5-325Mg] Insulin Glargine, Human [Lantus] 15 unit SQ DAILY unit 09/03/17 12/16/17 Rx Insulin Lispro [Humalog] See Protocol SQ ACHS unit 09/03/17 12/16/17 Rx sevelamer carbonate 800 mg tablet 800 mg PO TIDCC #90 tab 10/11/17 12/16/17 Rx clonidine HCl 0.2 mg tablet 0.2 mg PO TID #90 tab 12/05/17 12/16/17 Rx Allergies Allergy/AdvReac Type Severity Reaction Status Date / Time lactose AdvReac Mild Diarrhea Verified 09/01/17 15:23 Exam - Vital Signs Vital signs: Temp Pulse Resp BP Pulse Ox 97.5 F 59 L 16 172/64 95 12/17/17 04:00 12/17/17 04:00 12/17/17 04:00 12/17/17 04:00 12/17/17 04:00 - General Appearance General appearance: chronically ill, frail EENT: mucous membranes moist Neck: supple Respiratory: course breath sounds Cardiology: no edema Gastrointestinal: no tenderness Integumentary: warm and dry Neurologic: no focal deficit, alert and oriented x3 Musculoskeletal: no erythema, no cyanosis Psychiatric: mood/affect appropriate, cooperative Results - Lab Results 12/16/17 22:44 12/16/17 22:44 Most recent lab results Calcium 9.0 mg/dl (8.6-10.4) 12/16/17 22:44 Assessment and Plan (1) End-stage renal disease on hemodialysis Hemodialysis today for 4 hours and 2 kg UF goal. The patient seen and evaluated during dialysis at 12:00. Continue hemodialysis on MWF. Status: Chronic Priority: Medium (2) Anemia due to end stage renal disease Status: Chronic Priority: Medium
[2017-12-17] MEDS: amLODIPine 10 MG TABLET PO SCH ×2 (07:19→21:08)
[2017-12-17] MEDS: FERROUS SULFATE 325 MG TABLET PO SCH ×2 (07:20→17:40)
[2017-12-17] MEDS: CLOPIDOGREL 75 MG TABLET PO SCH (07:20)
[2017-12-17] MEDS: METOCLOPRAMIDE 10 MG TABLET PO SCH ×2 (07:20→17:40)
[2017-12-17] MEDS: CARVEDILOL 12.5 MG TABLET PO SCH ×2 (07:20→17:40)
[2017-12-17] MEDS: levETIRAcetam 500 MG TABLET PO SCH ×2 (07:21→21:08)
[2017-12-17] MEDS: HEPARIN 5,000 UNIT/ML VIAL SQ SCH ×2 (07:21→21:08)
[2017-12-17] MEDS: LEVOTHYROXINE SODIUM 112 MCG TABLET PO SCH (07:21)
[2017-12-17] MEDS: cloNIDine HCL 0.1 MG TABLET PO SCH ×3 (07:21→21:08)
[2017-12-17] MEDS: BUMETANIDE 1 MG TABLET PO SCH (07:21)
[2017-12-17] MEDS: INSULIN LISPRO 1 UNIT/0.01 ML UNIT SQ SCH ×4 (08:44→21:07)
[2017-12-17] MEDS: SEVELAMER 800 MG TABLET PO SCH ×4 (08:44→17:40)
--- NOTE | 2017-12-17 08:59 | Internal Med History&Physical ---
Medical - H&P: HPI Patient information: Note initiated : 12/17/17 at 8:24 am Service Date, if different from initiated Date: []; this note represents late documentation of evaluation in ED by me at 2 AM, 12/17/17 Patient: Shanda Rhodes a 72 y/o F admitted on 12/17/17 for Fever, Lethargy, confusion. History of present illness: Ms. Rhodes is a 72 year old F with multiple underlying medical problems including diabetes and diabetic nephropathy with ESKD, started on hemodialysis August 2017 through tunneled catheter right side. History is somewhat difficult from her tonight in that answers are frequently non-sequiturs, or contradict what she said immediately prior (particularly true during review of systems). Her reason for initial presentation is also offered in two versions. However, it appears that she has been feeling well until the day of presentation to the ED. She states her family was staying in a hotel room (reasons unclear, she tells me she lives with them in their home) locally. Patient states she slept all day and that her daughter tried to phone her, but that she didn't answer the phone because she was sleeping. Daughter came back home and woke her up. It is unclear if her glucose was checked at that time. Patient states she doesn't have a thermometer at home and "never checks her temperature." Patient relates her daughter told patient that she was not fine and she called an ambulance. It is unclear from patient what symptoms were concerning. Patient denies fevers or chills, but does relate that she often "wakes up feeling really sweaty " - and notes that has been present for the last 1-2 months. No nausea or vomiting. No headache. No cough. States she monitors her fingersticks and that "sometimes it's fine, sometimes not." On presentation to the ED, she was found to be febrile to 102 with no clear source, although on evaluation, both possible pneumonia and possible UTI were noted. On review of records, it appears that she was admitted in August for chronic heart failure and that the hemodialysis was started in that setting and subsequently continued. Review of systems: Very difficult to get reliable ROS; there were frequently contradictory statements. 1) Chronic intermittent diarrhea - details are vague 2) Wears AFO splints due to "diabetic neuropathy"; states she can't walk without them, then states she can walk just fine and that she doesn't trip over her feet without them. 3) "Hearing problem" right ear. (she is vague on this and then accused me of not looking in her ears - because "you should have seen something." Although I do review of systems while I'm doing my exam.) Wants a referral from me to ENT because her last ENT retired. 4) Wakes up diaphoretic 1-2 times per month. 5) Very clear on DNR status in the case of cardiorespiratory arrest. 6) States plan for AV fistula placement right side, date in the future. 7) Denies issues with cough, respirations, chest pain, palpitations, heartburn, new rashes, joint swelling, both denies and endorses headache without specifics , states still makes urine, no urinary issues. Insomnia both denies and endorses. All others negative across all points. Medical - H&P: PMH Medical history: Chronic kidney disease stage V on hemodialysis Upper respiratory infection (Acute) Urinary tract infection (Acute) CVA (cerebral vascular accident) (Acute) Vasovagal syncope (Acute) Sinusitis (Acute) Injury of right rotator cuff (Acute) Community acquired pneumonia (Acute) CHF (congestive heart failure) (Acute) Myoclonus (Acute) Type 2 diabetes mellitus (Chronic) Hyperparathyroidism due to renal insufficiency (Chronic) Anemia (Chronic) Hypertensive renal disease (Chronic) Diabetic ketoacidosis associated with type 2 diabetes mellitus (Acute) Dementia noted on old records. Pertinent family history: Parents both age 83; mother of aneurysm (unclear whether cerebral or abdominal), father of complications of diabetes and end stage renal disease. Social history: Lives with daughter, son-in-law, and their 3 children. One dog. Quit smoking . No alcohol or recreational drugs. Smoking status: Former smoker Have you smoked in the last 12 months: No Medical - H&P: Meds Home Medications Medication Instructions Recorded Confirmed Type Levothyroxine Sodium [Synthroid] 112 mcg PO QAMAC 07/03/15 12/16/17 History levETIRAcetam [Levetiracetam] 500 mg PO BID 11/10/16 12/16/17 History Clopidogrel Bisulfate [Plavix] 75 mg PO DAILY 11/20/16 12/16/17 History Acetaminophen [Tylenol] 650 mg PO Q4-6HP PRN #0 tab 11/24/16 12/16/17 Rx metoclopramide 5 mg tablet 5 mg PO BID tab 12/07/16 12/16/17 History Carvedilol [Coreg] 25 mg PO BID 08/22/17 12/16/17 History Ferrous Sulfate [High Potency Iron] 65 mg PO BID 08/22/17 12/16/17 History Prochlorperazine Maleate 10 mg PO Q6HP PRN 08/22/17 12/16/17 History [Compazine] amLODIPine [Norvasc] 10 mg PO BID 08/22/17 12/16/17 History Accu-Chek 1 each FS ACHS strip 09/03/17 12/16/17 Rx Bumetanide [Bumex] 1 mg PO DAILY tab 09/03/17 12/16/17 Rx Dextrose [Insta-Glucose] 15 gm PO PRN PRN oral.susp 09/03/17 12/16/17 Rx Gabapentin [Neurontin] 100 mg PO HS cap 09/03/17 12/16/17 Rx HYDROcodone/APAP 5/325MG [[place] 1 tab PO Q6HP PRN #30 tab 09/03/17 12/16/17 Rx 5-325Mg] Insulin Glargine, Human [Lantus] 15 unit SQ DAILY unit 09/03/17 12/16/17 Rx Insulin Lispro [Humalog] See Protocol SQ ACHS unit 09/03/17 12/16/17 Rx sevelamer carbonate 800 mg tablet 800 mg PO TIDCC #90 tab 10/11/17 12/16/17 Rx clonidine HCl 0.2 mg tablet 0.2 mg PO TID #90 tab 12/05/17 12/16/17 Rx Allergies Allergy/AdvReac Type Severity Reaction Status Date / Time lactose AdvReac Mild Diarrhea Verified 09/01/17 15:23 Medical - H&P: Exam - Constitutional Vitals: Temp Pulse Resp BP Pulse Ox 98.2 F 59 L 16 191/84 96 12/17/17 06:35 12/17/17 04:00 12/17/17 06:35 12/17/17 06:35 12/17/17 06:35 - Other Additional findings: GENERAL: Patient lying on gurney, answering questions, frequently interrupts, at times argumentative. She asserts no complaints multiple times, then offers ongoing complaints x months when queried regarding diaphoresis. Speech coherent , fluent, articulate. Thought content at times very clear, at times repetitive , other times contradictory. Respirations unlabored, no cough noted. HEENT: Head atraumatic, normocephalic. EYES: pupils equal, no scleral icterus, no injected vessels. EARS: TM's bilaterally pearly pérez, translucent. EAC's clear without trauma; minimal soft cerumen at the edges bilaterally. Oropharynx with moist membranes, good oral hygiene, no posterior erythema. NECK: Trachea midline, no masses, no JVD, no bruits. LUNGS: Clear to bases bilaterally, no wheezes, crackles, focally diminished breath sounds. Respirations comfortable. COR: Regular rate and rhythm, no murmurs noted on exam. ABDOMEN: Non-distended, soft, non-tender throughout, no guarding, no rebound. EXTREMITIES: No edema. Warm, no nailbed cyanosis. MUSCULOSKELETAL: Right ankle fixed, almost with appearance of Charcot joint, no erythema. At this point, patient tells me this was a complicated break, and went undiagnosed prior to surgical fusion. No joint swelling or erythema, no other long bone deformities. NEUROLOGIC: left foot flaccid. 0/5 strength with both ankle flexion and extension. 4+/5 in flexion/extension of knee and hip. Right ankle fixed as noted above. Exhibits moments of confusion, but may be partially complicated by tendency to answer questions by interrupting during the question - and the answer may not reflect the question that was going to be asked. PSYCHIATRIC: At times argumentative, others quite cooperative. Mood generally appropriate, however. SKIN: Tunneled catheter right upper chest wall, no associated erythema or rash. No areas of swelling or erythema otherwise. Medical - H&P: Reslt - Labs CBC & Chem 7: 12/16/17 22:44 12/16/17 22:44 Labs: Short CBC 12/16/17 Range/Units 22:44 WBC 11.7 H (4.5-11.0) K/mcL Hgb 9.1 L (12.0-15.0) g/dL Hct 27.2 L (36.0-48.0) % Plt Count 494 H (140-440) K/mcL BMP 12/16/17 22:44 Sodium 132 L Potassium 5.1 Chloride 93 L Carbon Dioxide 28 BUN 45 H Creatinine 2.5 H Glucose 109 H Calcium 9.0 Liver Function 12/16/17 Range/Units 22:44 Total Bilirubin 0.2 (0.0-1.0) mg/dL AST 10 (0-37) U/l ALT < 5 (0-40) U/l Alkaline Phosphatase 100 (39-117) U/L Albumin 3.0 L (3.2-5.2) gm/dL Urine 12/16/17 Range/Units 23:25 Urine Color Yellow Urine Appearance Hazy Urine pH 6.0 (5.0-9.0) Ur Specific [place] 1.017 (1.000-1.035) Urine Protein >=500 A (NEG) mg/dL Urine Glucose (UA) 150 A (NEG) mg/dL - Imaging and Cardiology Chest x-ray Additional comments: FINDINGS:No change in left transvenous pacemaker leads. No change in large caliber right central venous catheter. There is cardiomegaly. There are septal lines and mild peribronchial thickening consistent with interstitial pulmonary edema. There are bibasilar infiltrates, worse on the left. There is a left pleural effusion. Predominant left basilar infiltrate and effusion is somewhat atypical for pulmonary edema and superimposed pneumonia is possible. Clinical correlation and follow-up radiographs recommended. IMPRESSION: 1. Cardiomegaly and interstitial pulmonary edema 2. Bibasilar infiltrates, left greater than right. Small left effusion. Superimposed pneumonia should be considered Medical - H&P: A/P - Narrative A/P Narrative: 1) Fever: no clear source, possible pneumonia, but CXR most significant for pulmonary edema. Urine also equivocal. Concern obviously for intravascular source with tunneled catheter. Imperative this be addressed before she has any vascular surgery for AV fistula. Continue rocephin for UTI, consider adding doxycycline for atypical pulmonary pathogens (although no pulmonary complaints at present), await cultures. 2) Hemodialysis: nephrology has been consulted, will continue MWF dialysis. 3) h/o CHF: Xray consistent with presence of edema; this may represent mild decompensation before her regular dialysis (it appears on records that CHF requiring dialysis was trigger for ongoing hemodialysis). 4) Diabetes: will continue her usual Lantus, order consistent carb diet, continue sliding scale. 5) Confusion: previous records also suggest some underlying dementia, present exam may reflect that as well. 6) Nocturnal diaphoresis: patient reports x months, some concern regarding intravascular source. I do not hear a murmur, but if blood cultures are positive, she will need an echocardiogram. 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 8) Hearing complaint: visual ear exam unremarkable. Suggested follow up with primary provider. 9) Anemia: chronic, stable. Due to chronic kidney disease. Plan: Inpatient admission Continue Rocephin for now Nephrology consult Daily CBC Follow temp Await blood cultures Continue outpatient meds Fingersticks ac and hs Sliding scale insulin DNR per her request Await urine culture Other problems to be addressed as they arise. Medical - H&P: Qual - VTE Deep Vein Thrombosis/Pulmonary Embolism Present on Admission: No
[2017-12-17] MEDS ORDERED: INSULIN GLARGINE, HUMAN 1 UNIT/0.01 ML SQ SCH (09:00)
[2017-12-17] MEDS: cefTRIAXone 1 GM VIAL IV SCH (18:00)
[2017-12-17] MEDS: GABAPENTIN 100 MG CAPSULE PO SCH (21:08)
[2017-12-18] MEDS ORDERED: cefTRIAXone 1 GM in DEXTROSE 5% IN WATER 50 ML IV SCH (02:00)
[2017-12-18] MEDS: INSULIN GLARGINE, HUMAN 1 UNIT/0.01 ML SQ SCH ×2 (05:17→10:00)
[2017-12-18 05:38] LABS: ALT/SGPT < 5 U/l (0-40); Albumin 2.8 gm/dL (3.2-5.2); Albumin/Globulin Ratio 0.8 (1.0-2.3); Alkaline Phosphatase 106 U/L (39-117); Bilirubin,Direct < 0.2 mg/dL (0.0-0.3); Blood Urea Nitrogen 17 mg/dl (8-23); Gamma Glutamyl Transpeptidase 24 U/L (5-36)
[2017-12-18] MEDS: 0.9 % SODIUM CHLORIDE 10 ML SYRINGE IV SCH ×3 (05:44→20:33)
--- NOTE | 2017-12-18 06:35 | Nephrology Progress Note ---
Subjective Patient information: Note initiated : 12/18/17 at 6:34 am Shanda Rhodes is a [id number] female with end stage renal disease stage on chronic hemodialysis (through tunneled hemodialysis catheter, on MWF, at [facility], followed by Dr Esparza), secondary hyperparathyroidism, chronic anemia due to renal failure, hypertension and diabetes mellitus type 2, coronary artery disease s/p stents, s/p AICD placement, presented to ED and admitted on 12/17/17. Chief Complaint: Fever Principal diagnosis: End stage renal disease Interval history: Hemodialysis on 12/18/17 with 2 kg UF. Pertinent ROS: Weakness. Sleepy. Shortness of breath. Objective - Vital Signs Vital signs: Vital Signs Temp Pulse Pulse Resp BP BP Pulse Ox 12/18/17 04:00 96.7 F L 60 16 175/66 93 12/18/17 00:00 98.3 F 59 L 16 145/88 99 12/17/17 19:19 99.0 F H 61 16 143/55 96 12/17/17 16:00 97.7 F 63 16 110/54 93 12/17/17 14:12 97.4 F 61 156/63 12/17/17 13:59 61 139/52 12/17/17 13:46 60 126/70 12/17/17 13:29 65 104/45 12/17/17 13:15 61 144/61 12/17/17 12:59 62 142/61 12/17/17 12:46 60 140/58 12/17/17 12:29 60 135/56 12/17/17 12:14 68 122/50 12/17/17 11:59 59 L 117/49 12/17/17 11:45 81 96/48 12/17/17 11:34 60 119/54 12/17/17 11:29 97.3 F 16 117/52 90 12/17/17 11:14 60 117/52 12/17/17 10:59 61 99/48 12/17/17 10:44 60 104/47 12/17/17 10:16 98.4 F 60 138/56 12/17/17 06:35 98.2 F 16 191/84 96 Intake and Output 12/17/17 12/18/17 12/18/17 21:59 05:59 13:59 Intake Total 480 / 480 0 / 0 Output Total 2251 / 2251 Balance -177 / -177 0 / 0 Intake: Oral 480 / 480 0 / 0 Output: Void Amount 250 / 250 # of times incontinent of urine Hemodialysis 1999 Other: Meal Peaches cup Percent of Meal Consumed 100% Feeding Ability Independent # Voids 1 Weight 131 lb 8 oz Intake & Output: Intake & Output 12/17/17 12/18/17 12/18/17 21:59 05:59 13:59 Intake Total 480 / 480 0 / 0 Output Total 2250 Balance -1770 / -177 0 / 0 Weight 131 lb 8 oz Intake: Oral 480 / 480 0 / 0 Output: Void Amount 250 / 250 # of times incontinent of urine Hemodialysis 1999 Other: Meal Peaches cup Percent of Meal Consumed 100% Feeding Ability Independent # Voids 1 - General Appearance General appearance: chronically ill, frail EENT: mucous membranes dry Neck: supple Respiratory: course breath sounds Cardiology: no edema Gastrointestinal: no tenderness Integumentary: no rash, warm and dry Neurologic: no focal deficit, alert and oriented x3 Musculoskeletal: no erythema Psychiatric: mood/affect appropriate, cooperative - Lab 12/18/17 04:15 12/18/17 04:15 Most recent lab results Calcium 8.8 mg/dl (8.6-10.4) 12/18/17 04:15 Phosphorus 2.9 mg/dL (2.7-4.5) 12/18/17 04:15 Magnesium 2.1 mg/dL (1.6-2.5) 12/18/17 04:15 Assessment and Plan (1) End-stage renal disease on hemodialysis Continue hemodialysis on MWF. Status: Chronic Priority: Medium (2) Anemia due to end stage renal disease Status: Chronic Priority: Medium (3) Hyponatremia Status: Resolved Priority: Medium
[2017-12-18] MEDS: INSULIN LISPRO 1 UNIT/0.01 ML UNIT SQ SCH ×4 (07:22→20:33)
[2017-12-18 07:39] LABS: Basophils # (Auto) 0.1 K/mcL (0.0-0.3); Basophils % (Auto) 0.8 % (0.0-2.0); Eosinophils # (Auto) 0.5 K/mcL (0.0-0.7); Eosinophils % (Auto) 6.3 % (0.0-7.0); Granulocytes % (Auto) 77.7 % (38.0-78.0); Lymphocytes # (Auto) 0.7 K/mcL (1.5-4.8); Lymphocytes % (Auto) 8.9 % (15.5-49.0); Mean Cell Volume 98.5 fL (80.0-100.0); Mean Corpuscular HGB Conc 35.2 g/dL (31.0-36.0); Mean Corpuscular Hemoglobin 34.7 pg (26.0-34.0); Monocytes # (Auto) 0.5 K/mcL (0.1-0.9); Monocytes % (Auto) 6.3 % (1.0-12.0); Platelet Count 418 K/mcL (140-440); RBC 2.82 M/mcL (4.00-5.20); Red Cell Distribution Width 13.7 % (11.5-14.5)
[2017-12-18] MEDS: FERROUS SULFATE 325 MG TABLET PO SCH ×2 (09:58→18:37)
[2017-12-18] MEDS: HEPARIN 5,000 UNIT/ML VIAL SQ SCH ×2 (09:59→20:30)
[2017-12-18] MEDS: levETIRAcetam 500 MG TABLET PO SCH ×2 (09:59→20:31)
[2017-12-18] MEDS: amLODIPine 10 MG TABLET PO SCH ×2 (09:59→20:32)
[2017-12-18] MEDS: cloNIDine HCL 0.1 MG TABLET PO SCH ×3 (09:59→20:32)
[2017-12-18] MEDS: BUMETANIDE 1 MG TABLET PO SCH (09:59)
[2017-12-18] MEDS: CARVEDILOL 12.5 MG TABLET PO SCH ×2 (09:59→18:37)
[2017-12-18] MEDS: CLOPIDOGREL 75 MG TABLET PO SCH (09:59)
[2017-12-18] MEDS: SEVELAMER 800 MG TABLET PO SCH ×3 (10:10→18:37)
[2017-12-18] MEDS: LEVOTHYROXINE SODIUM 112 MCG TABLET PO SCH (10:10)
[2017-12-18] MEDS: METOCLOPRAMIDE 10 MG TABLET PO SCH ×2 (10:10→18:37)
--- NOTE | 2017-12-18 10:56 | Internal Med Progress Note ---
Medical - PN: Subj Patient information: Note initiated : 12/18/17 at 10:52 am Patient: Shanda Rhodes a 72 y/o F admitted on 12/17/17 for Fever, Lethargy, confusion, possible pneumonia. Interval history: 12/18: Reports still tired since "didn't sleep" last night. States she had another of her nocturnal sweaty episodes and that the night nurse figured out it was her Lantus and that "nobody else knew that because they didn't review the chart" I did remind her that the sweaty episode she had in the ER was accompanied by an immediate glucose check and that it was 160's. I asked her if she checked her fingersticks at home when this happened; first she said no, then she said she did and it was 160. Denies headache, chest pain, palpitations (mentions she thinks her pacemaker has "helped her ticker.", shortness of breath, cough. Denies pedal edema. Notes always tired after dialysis and wants to know if she can stay in hospital after dialysis due to fatigue. - Constitutional Vitals: Vital Signs Temp Pulse Resp BP Pulse Ox 97.3 F 60 14 148/54 100 12/18/17 07:09 12/18/17 04:00 12/18/17 07:09 12/18/17 07:09 12/18/17 07:09 Period Temp Pulse Resp BP Sys/Courtney Pulse Ox Last 24 Hr 96.7 F-99.0 F 59-81 14-16 96-175/45-88 90-100 Intake and Output 12/17/17 12/18/17 12/18/17 21:59 05:59 13:59 Intake Total 480 / 480 0 / 0 Output Total 225 / 225 Balance -1771 / -1771 0 / 0 Weight 131 lb 8 oz Intake & Output: Intake & Output 12/17/17 12/18/17 12/18/17 21:59 05:59 13:59 Intake Total 480 / 480 0 / 0 Output Total 2251 / 2251 Balance -1771 / -1771 0 / 0 Weight 131 lb 8 oz Intake: Oral 480 / 480 0 / 0 Output: Void Amount 250 / 250 # of times incontinent of urine Hemodialysis UF 1999 Other: Meal Peaches cup Percent of Meal Consumed 100% Feeding Ability Independent # Voids 1 - Additional findings Additional findings: GENERAL: Initially resting comfortably in darkened room. Not sleeping. Follows directions. Experience with conversation similar to in ED: usually interrupts both questions and discussion regarding plan. Not clear she understands why she is here or what the plan is for care. She does reflect understanding that her sweaty episodes at night might be related to hypoglycemia / insulin reaction. Knows she is getting dialysis tomorrow. Oriented x 3, but conversation again often contradictory or vague. HEENT: Moist membranes, no scleral icterus. LUNGS: Clear to bases bilaterally, no wheezes, crackles, focally diminished breath sounds. Respirations comfortable. COR: Regular rate and rhythm (has h/o afib, but pacemaker/ICD in place), I/ systolic murmur bilateral upper sternal borders noted, not appreciated on admit. Tunneled catheter right upper chest wall; Pacemaker left upper chest. ABDOMEN: Non-distended, soft, non-tender throughout, no guarding, no rebound. EXTREMITIES: No edema. Warm, no nailbed cyanosis. Unchanged flaccid left foot, more rigid right foot. Medical - PN: Obj Da - Labs CBC & Chem 7: 12/18/17 04:15 12/18/17 04:15 Labs: Abnormal Lab Results 12/18/17 12/18/17 12/16/17 04:15 04:15 23:25 WBC RBC 2.82 L Hgb 9.8 L Hct 27.8 L POC Hct MCH 34.7 H Plt Count MPV 7.0 L Gran % Lymph % (Auto) 8.9 L Gran # Lymph # (Auto) 0.7 L Seg Neutrophils % Lymphocytes % Basophils % (Manual) POC Sodium Sodium POC Chloride Chloride 95 L Carbon Dioxide 31 H POC BUN BUN Creatinine 2.0 H POC Creatinine Glucose 49 L POC Glucose Albumin 2.8 L Albumin/Globulin Ratio 0.8 L Urine Protein >=500 A Urine Glucose (UA) 150 A Urine RBC 3 H Urine WBC 13 H Ur Squamous Epith Cells 7 H Urine Bacteria Few A Hyaline Casts 3 H 12/16/17 12/16/17 22:44 22:44 WBC 11.7 H RBC 3.02 L Hgb 9.1 L Hct 27.2 L POC Hct 25.0 L MCH Plt Count 494 H MPV 6.8 L Gran % 82.6 H Lymph % (Auto) 6.2 L Gran # 9.7 H Lymph # (Auto) 0.7 L Seg Neutrophils % 86 H Lymphocytes % 3 L Basophils % (Manual) 3 H POC Sodium 132 L Sodium 132 L POC Chloride 95 L Chloride 93 L Carbon Dioxide POC BUN 43 H BUN 45 H Creatinine 2.5 H POC Creatinine 2.7 H Glucose 109 H POC Glucose 113 H Albumin 3.0 L Albumin/Globulin Ratio 0.9 L Urine Protein Urine Glucose (UA) Urine RBC Urine WBC Ur Squamous Epith Cells Urine Bacteria Hyaline Casts Meds: Medications Acetaminophen (Tylenol) 650 mg PO Q6HP PRN PRN Reason: PAIN/FEVER > 101 Hydrocodone Bitart/Acetaminophen ([place] 5/325mg) 1 tab PO Q6HP PRN PRN Reason: Pain Amlodipine Besylate (Norvasc) 10 mg PO BID [facility] Last Admin: 12/18/17 09:59 Dose: 10 mg Bumetanide (Bumex) 1 mg PO DAILY [facility] Last Admin: 12/18/17 09:59 Dose: 1 mg Carvedilol (Coreg) 25 mg PO BIDCC [facility] Last Admin: 12/18/17 09:59 Dose: 25 mg Ceftriaxone Sodium (Rocephin) 1 gm IV Q24H [facility] Last Admin: 12/17/17 18:00 Dose: 1 gm Clonidine HCl (Catapres) 0.2 mg PO TID [facility] Last Admin: 12/18/17 09:59 Dose: 0.2 mg Clopidogrel Bisulfate (Plavix) 75 mg PO DAILY [facility] Last Admin: 12/18/17 09:59 Dose: 75 mg Dextrose (Dextrose 50%) 0 ml IV UD PRN PRN Reason: Hypoglycemia Diagnostic Test (Pha) (Accu-Chek) 1 each FS ACHS [facility] Last Admin: 12/18/17 07:21 Dose: 1 each Ferrous Sulfate (Ferrous Sulfate) 325 mg PO BIDCC [facility] Last Admin: 12/18/17 09:58 Dose: 325 mg Gabapentin (Neurontin) 100 mg PO HS [facility] Last Admin: 12/17/17 21:08 Dose: 100 mg Glucose (Insta-Glucose) 15 gm PO PRN PRN PRN Reason: Hypoglycemia Heparin Sodium (Porcine) (Heparin) 5,000 unit SQ Q12 [facility] Last Admin: 12/18/17 09:59 Dose: 5,000 unit Insulin Glargine (Lantus) 5 unit SQ DAILY [facility] Last Admin: 12/18/17 10:00 Dose: 5 unit Insulin Human Lispro (Humalog) 0 unit SQ ACHS [facility] PRN Reason: Protocol Last Admin: 12/18/17 07:22 Dose: Not Given Levetiracetam (Keppra) 500 mg PO BID [facility] Last Admin: 12/18/17 09:59 Dose: 500 mg Levothyroxine Sodium (Synthroid) 112 mcg PO QAMAC [facility] Last Admin: 12/18/17 10:10 Dose: 112 mcg Metoclopramide HCl (Reglan) 5 mg PO BIDAC [facility] Last Admin: 12/18/17 10:10 Dose: 5 mg Prochlorperazine Maleate (Compazine) 10 mg PO Q6HP PRN PRN Reason: Nausea Sevelamer Carbonate (Renvela) 800 mg PO TIDCC [facility] Last Admin: 12/18/17 10:10 Dose: 800 mg Sodium Chloride (Saline Flush) 10 ml IV Q8 [facility] Last Admin: 12/18/17 05:44 Dose: 10 ml Medical - PN: A/P - Time Spent With Patient Total time spent is greater than 50% in coordination of care (as documented) at patient's floor/unit and/or counseling patient: 15 - 24 minutes - Narrative A/P Narrative: 1) Fever: Has been on Rocephin since admit for possible pna, possible UTI. She has been afebrile since admission, and white count has normalized from 11.7 on admit (now 7.7). No respiratory complaints. Urine culture with multiple skin pathogens only, no suggestion of infection. Blood cultures negative x 24 hours. Pulmonary most likely diagnosis, although chest X ray somewhat equivocal. She is improving with Rocephin; should wait for cultures negative at least at 48 hours before switching to oral medications and discharging. I attempted to explain plan to patient, she is unable to reflect this back to me, but expresses she has no questions. 2) Hemodialysis: nephrology has been consulted, will continue MWF dialysis. Dialysis tomorrow. Patient states always makes her tired, wants to know if she can stay here if she feels too tired. I noted if it were her usual fatigue, likely she would not have to stay. 3) h/o CHF: No sign of decompensation on exam. 4) Diabetes: Opted to decrease her Lantus to 5 units. She usually takes it in the morning; may need more sliding scale coverage during the day with change in baseline insulin. Continue consistent carb diet. 5) Confusion: This seems to be at baseline; previous records also suggest some underlying dementia, I suspect this is likely the issue. She is oriented, but seems to have difficulty with new information, even if told simply and concretely. She lives with her daughter who helps with care. 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 7) h/o Hypertension: On multiple medications, likely contributing etiology of cardiomyopathy (also has CAD with h/o stent placement). Had elevated blood pressure at time of insulin reaction early this AM, otherwise, readings have generally been acceptable (was high in ED as well). Will continue current antihypertensives. 8) Anemia: chronic, stable. Due to chronic kidney disease. Medical - PN: Qual - VTE Deep Vein Thrombosis/Pulmonary Embolism Present on Admission: No
[2017-12-18] MEDS: cefTRIAXone 1 GM VIAL IV SCH (15:12)
[2017-12-18] MEDS: GABAPENTIN 100 MG CAPSULE PO SCH (20:31)
--- NOTE | 2017-12-19 05:28 | Nephrology Progress Note ---
Subjective Patient information: Note initiated : 12/19/17 at 5:26 am Shanda Rhodes is a [id number] female with end stage renal disease stage on chronic hemodialysis (through tunneled hemodialysis catheter, on MWF, at [facility], followed by Dr Esparza), secondary hyperparathyroidism, chronic anemia due to renal failure, hypertension and diabetes mellitus type 2, coronary artery disease s/p stents, s/p AICD placement, presented to ED and admitted on 12/17/17. Chief Complaint: Fever Principal diagnosis: End stage renal disease Interval history: No significant change. Pertinent ROS: Weakness. Reports feeling fever. Short of breath. No edema. Objective - Vital Signs Vital signs: Vital Signs Temp Pulse Resp BP Pulse Ox 12/19/17 04:00 98.5 F 64 16 162/61 91 12/18/17 23:58 98.7 F 61 16 163/63 91 12/18/17 20:00 98.3 F 62 18 136/51 92 12/18/17 15:29 97.2 F 14 140/66 92 12/18/17 11:42 98.1 F 18 148/58 99 12/18/17 07:09 97.3 F 14 148/54 100 Intake and Output 12/18/17 12/18/17 12/19/17 13:59 21:59 05:59 Intake Total 100 / 100 420 / 420 Output Total Balance - 99 / 99 420 / 420 Intake: Oral 100 / 100 420 / 420 Output: # of times incontinent of urine Other: Meal cheese stick, peaches Percent of Meal Consumed 100% Feeding Ability Independent Weight 132 lb Patient Weight 12/19/17 05:59 Weight 132 lb Intake & Output: Intake & Output 12/18/17 12/18/17 12/19/17 13:59 21:59 05:59 Intake Total 100 / 100 420 / 420 Output Total Balance - 99 / 99 420 / 420 Weight 132 lb Intake: Oral 100 / 100 420 / 420 Output: # of times incontinent of urine Other: Meal cheese stick, peaches Percent of Meal Consumed 100% Feeding Ability Independent - General Appearance General appearance: appears started age, frail EENT: mucous membranes moist Neck: supple Respiratory: course breath sounds Cardiology: no edema Gastrointestinal: no tenderness Integumentary: warm and dry Neurologic: no focal deficit, alert and oriented x3 Musculoskeletal: no erythema Psychiatric: mood/affect appropriate, cooperative - Lab 12/18/17 04:15 12/19/17 04:15 Most recent lab results Calcium 8.8 mg/dl (8.6-10.4) 12/18/17 04:15 Phosphorus 2.9 mg/dL (2.7-4.5) 12/18/17 04:15 Magnesium 2.1 mg/dL (1.6-2.5) 12/18/17 04:15 Assessment and Plan (1) End-stage renal disease on hemodialysis Hemodialysis today for 3 hours with 2 kg UF goal then on MWF. The patient seen and evaluated during dialysis at 10:40. Status: Chronic Priority: Medium (2) Anemia due to end stage renal disease Status: Chronic Priority: Medium (3) Hyponatremia Status: Chronic Priority: Medium
[2017-12-19] MEDS: 0.9 % SODIUM CHLORIDE 10 ML SYRINGE IV SCH ×2 (05:39→16:24)
[2017-12-19 05:59] LABS: ALT/SGPT < 5 U/l (0-40); Albumin 2.6 gm/dL (3.2-5.2); Albumin/Globulin Ratio 0.8 (1.0-2.3); Alkaline Phosphatase 90 U/L (39-117); Bilirubin,Direct < 0.2 mg/dL (0.0-0.3); Blood Urea Nitrogen 37 mg/dl (8-23); Gamma Glutamyl Transpeptidase 23 U/L (5-36)
[2017-12-19] MEDS: SEVELAMER 800 MG TABLET PO SCH ×3 (08:17→17:15)
[2017-12-19] MEDS: METOCLOPRAMIDE 10 MG TABLET PO SCH ×2 (08:17→17:15)
[2017-12-19] MEDS: LEVOTHYROXINE SODIUM 112 MCG TABLET PO SCH (08:17)
[2017-12-19] MEDS: INSULIN LISPRO 1 UNIT/0.01 ML UNIT SQ SCH ×3 (08:18→17:16)
[2017-12-19] MEDS: amLODIPine 10 MG TABLET PO SCH (08:32)
[2017-12-19] MEDS: FERROUS SULFATE 325 MG TABLET PO SCH ×2 (08:32→17:15)
[2017-12-19] MEDS: CARVEDILOL 12.5 MG TABLET PO SCH ×2 (08:32→17:15)
[2017-12-19] MEDS: CLOPIDOGREL 75 MG TABLET PO SCH (08:33)
[2017-12-19] MEDS: BUMETANIDE 1 MG TABLET PO SCH (08:33)
[2017-12-19] MEDS: cloNIDine HCL 0.1 MG TABLET PO SCH ×2 (08:33→16:24)
[2017-12-19] MEDS ORDERED: INSULIN GLARGINE, HUMAN 1 UNIT/0.01 ML SQ SCH (09:00)
[2017-12-19] MEDS ORDERED: CEFUROXIME 500 MG TABLET PO SCH (09:00)
[2017-12-19] MEDS: INSULIN GLARGINE, HUMAN 1 UNIT/0.01 ML SQ SCH (09:04)
[2017-12-19] MEDS: HEPARIN 5,000 UNIT/ML VIAL SQ SCH (09:11)
--- NOTE | 2017-12-19 11:00 | Discharge Summary ---
Medical - DS: Prov Patient information: Note initiated : 12/19/17 at 10:57 am Service Date, if different from initiated Date: [] Patient: Shanda Rhodes 72 y/o F admitted on 12/17/17 for Fever, Lethargy, Confusion. Possibility of infiltrate noted on CXR in ED, patient with no respiratory symptoms. No hypoxia. Has been afebrile since admit (essentially prior to antibiotic administration), no hypoxia, wbc normal. Blood cultures had been drawn to evaluate for possible intravascular source given her dialysis, this has been negative since admission. Date of admission: 12/17/17 02:39 Discharge date: 12/19/17 Primary care physician: Gifty Cihsholm Admitting clinician: Katia Colbert Attending physician on admission: Katia Colbert Consults: 12/17/17 01:25 Consult to Physician [CONS] Stat Comment: Consulting Provider: Katia Colbert Reason For Exam: Physician to Consult Consult to Physician [CONS] Stat Comment: Consulting Provider: Lex Lucero Reason For Exam: Physician to Consult Attending physician on discharge: Katia Colbert Medical - DS: Meds - Discharge Medications Prescriptions: Cefuroxime [Ceftin] 500 mg PO Q12 #14 tab Active and Home Medications: Home Medications Levothyroxine Sodium [Synthroid] 112 mcg PO QAMAC 07/03/15 [History Confirmed Last Taken 09/01/17 09:30] levETIRAcetam [Levetiracetam] 500 mg PO BID 11/10/16 [History Confirmed Last Taken 09/01/17 09:30] Clopidogrel Bisulfate [Plavix] 75 mg PO DAILY 11/20/16 [History Confirmed Last Taken 08/21/17] Acetaminophen [Tylenol] 650 mg PO Q4-6HP PRN #0 tab 11/24/16 [Rx Confirmed 12/16 Last Taken 08/31/17 16:00] metoclopramide 5 mg tablet 5 mg PO BID tab 12/07/16 [History Confirmed Last Taken 08/21/17] Carvedilol [Coreg] 25 mg PO BID 08/22/17 [History Confirmed 12/16/17 Last Taken 08/31/17 17:15] Ferrous Sulfate [High Potency Iron] 65 mg PO BID 08/22/17 [History Confirmed Last Taken 09/01/17 09:30] Prochlorperazine Maleate [Compazine] 10 mg PO Q6HP PRN 08/22/17 [History Confirmed 12/16/17 Last Taken Unknown] amLODIPine [Norvasc] 10 mg PO BID 08/22/17 [History Confirmed 12/16/17 Last Taken 08/31/17 22:30] Accu-Chek 1 each FS ACHS strip 09/03/17 [Rx Confirmed 12/16/17 Last Taken Unknown] Bumetanide [Bumex] 1 mg PO DAILY tab 09/03/17 [Rx Confirmed 12/16/17 Last Taken Unknown] Dextrose [Insta-Glucose] 15 gm PO PRN PRN oral.susp 09/03/17 [Rx Confirmed Last Taken Unknown] Gabapentin [Neurontin] 100 mg PO HS cap 09/03/17 [Rx Confirmed 12/16/17 Last Taken Unknown] HYDROcodone/APAP 5/325MG [[place] 5-325Mg] 1 tab PO Q6HP PRN #30 tab 09/03/17 [Rx Confirmed 12/16/17 Last Taken Unknown] Insulin Lispro [Humalog] See Protocol SQ ACHS unit 09/03/17 [Rx Confirmed 12/16 Last Taken Unknown] sevelamer carbonate 800 mg tablet 800 mg PO TIDCC #90 tab 10/11/17 [Rx Confirmed 12/16/17 Last Taken Unknown] clonidine HCl 0.2 mg tablet 0.2 mg PO TID #90 tab 12/05/17 [Rx Confirmed Last Taken Unknown] Accu-Chek 1 each FS ACHS strip 12/19/17 [Rx Last Taken Unknown] Cefuroxime [Ceftin] 500 mg PO Q12 #14 tab 12/19/17 [Rx Last Taken Unknown] Insulin Glargine, Human [Lantus] 4 unit SQ DAILY unit 12/19/17 [Rx Last Taken Unknown] Medical - DS: Hosp Hospital course: Mr. Rhodes is a 72 year old F with CKD on hemodialysis, type 2 diabetes, hypertension, left foot drop, limited mobility right ankle due to old injury, bilateral AFO, who presented with fever and complaint of confusion. Admission History and Physical, in brief (for complete, please see my note from 12/17/17): Ms. Rhodes is a 72 year old F with multiple underlying medical problems including diabetes and diabetic nephropathy with ESKD, started on hemodialysis August 2017 through tunneled catheter right side. History is somewhat difficult from her tonight in that answers are frequently non-sequiturs, or contradict what she said immediately prior (particularly true during review of systems). Her reason for initial presentation is also offered in two versions. However, it appears that she has been feeling well until the day of presentation to the ED. She states her family was staying in a hotel room (reasons unclear, she tells me she lives with them in their home) locally. Patient states she slept all day and that her daughter tried to phone her, but that she didn't answer the phone because she was sleeping. Daughter came back home and woke her up. It is unclear if her glucose was checked at that time. Patient states she doesn't have a thermometer at home and "never checks her temperature." Patient relates her daughter told patient that she was not fine and she called an ambulance. It is unclear from patient what symptoms were concerning. Patient denies fevers or chills, but does relate that she often "wakes up feeling really sweaty " - and notes that has been present for the last 1-2 months. No nausea or vomiting. No headache. No cough. States she monitors her fingersticks and that "sometimes it's fine, sometimes not." On presentation to the ED, she was found to be febrile to 102 with no clear source, although on evaluation, both possible pneumonia and possible UTI were noted. On review of records, it appears that she was admitted in August for chronic heart failure and that the hemodialysis was started in that setting and subsequently continued. Review of systems: Very difficult to get reliable ROS; there were frequently contradictory statements. 1) Chronic intermittent diarrhea - details are vague 2) Wears AFO splints due to "diabetic neuropathy"; states she can't walk without them, then states she can walk just fine and that she doesn't trip over her feet without them. 3) "Hearing problem" right ear. (she is vague on this and then accused me of not looking in her ears - because "you should have seen something." Although I do review of systems while I'm doing my exam.) Wants a referral from me to ENT because her last ENT retired. 4) Wakes up diaphoretic 1-2 times per month. 5) Very clear on DNR status in the case of cardiorespiratory arrest. 6) States plan for AV fistula placement right side, date in the future. 7) Denies issues with cough, respirations, chest pain, palpitations, heartburn, new rashes, joint swelling, both denies and endorses headache without specifics , states still makes urine, no urinary issues. Insomnia both denies and endorses. All others negative across all points. GENERAL: Patient lying on gurney, answering questions, frequently interrupts, at times argumentative. She asserts no complaints multiple times, then offers ongoing complaints x months when queried regarding diaphoresis. Speech coherent , fluent, articulate. Thought content at times very clear, at times repetitive , other times contradictory. Respirations unlabored, no cough noted. HEENT: Head atraumatic, normocephalic. EYES: pupils equal, no scleral icterus, no injected vessels. EARS: TM's bilaterally pearly pérez, translucent. EAC's clear without trauma; minimal soft cerumen at the edges bilaterally. Oropharynx with moist membranes, good oral hygiene, no posterior erythema. NECK: Trachea midline, no masses, no JVD, no bruits. LUNGS: Clear to bases bilaterally, no wheezes, crackles, focally diminished breath sounds. Respirations comfortable. COR: Regular rate and rhythm, no murmurs noted on exam. ABDOMEN: Non-distended, soft, non-tender throughout, no guarding, no rebound. EXTREMITIES: No edema. Warm, no nailbed cyanosis. MUSCULOSKELETAL: Right ankle fixed, almost with appearance of Charcot joint, no erythema. At this point, patient tells me this was a complicated break, and went undiagnosed prior to surgical fusion. No joint swelling or erythema, no other long bone deformities. NEUROLOGIC: left foot flaccid. 0/5 strength with both ankle flexion and extension. 4+/5 in flexion/extension of knee and hip. Right ankle fixed as noted above. Exhibits moments of confusion, but may be partially complicated by tendency to answer questions by interrupting during the question - and the answer may not reflect the question that was going to be asked. PSYCHIATRIC: At times argumentative, others quite cooperative. Mood generally appropriate, however. SKIN: Tunneled catheter right upper chest wall, no associated erythema or rash. No areas of swelling or erythema otherwise. HOSPITAL COURSE: Patient had been started on Rocephin in the ED. She had no further fevers after the initial 102 at ED triage. White count was 11.7, she had no oxygen requirement. Initial plan was to continue IV antibiotics for 48 hours and follow blood cultures in case there was an intravascular source as she does receive dialysis through a tunneled catheter. She remained afebrile, no oxygen requirement, and vitals were stable. Although her outpatient dose of Lantus was 15, she was given 6 units her first morning here, and became hypoglycemic down to 49 with symptoms of diaphoresis similar to what she had described at home. Lantus dose was reduced to 5, she experience a low of 60, subsequently reduced to 4. Of note, patient was noted to want to drive her own sliding scale while here, at times refusing any coverage, then using more sliding scale for the higher subsequent fingersticks. Plan on hospital day 2 was for discharge home, this had been discussed with patient the day prior - that if cultures were negative, there was no reason to continue her hospital stay. On hospital day 2, however, she noted to me that she had to stay here three nights so she could go to [facility]. Vital signs had been stable during her entire stay, her temperature remained afebrile. No new symptoms, no hypoxia. Blood cultures remained negative. Urine showed nonpathogenic skin johnathan only. She was switched to Ceftin orally. However, patient stated to me that "the kidney doctor" was insisting she stay three midnights so that she could get into SNF. Case management was consulted - apparently, Dr. Lucero had talked with them the afternoon prior when he mentioned to patient she would be discharging today after dialysis and she told him she needed another day to go to a skilled facility. I could not identify skilled needs the patient might have. Her mobility appears at baseline, there are no signs of ongoing acute needs here. When I tried to speak with patient this morning, she again consistently interrupted, and it became very clear she is not confused. She reflected understanding of insurance, of finances, of my discussion with her yesterday, and recall of events in the ED. PT and OT consults obtained, the occupational therapist knew her from previous and noted that at that time, she also came in when her daughter went on vacation. They discussed respite care at those times instead of inpatient/SNF. Although patient does have some assistance at home, she is reluctant to ask her daughter for assistance with bathing because "she has a job and three children." Contrary to what she told me at admission, she actually owns the home and her daughter and family live with her. She was also quite knowledgeable about rules for asset transfer. She also told me that she wasn't ready to leave because she felt the antibiotics were just "covering up" some "imagined problem " that isn't in her blood or her urine. She notes we "haven't figured out why I was confused and couldn't answer the phone when my daughter called." Patient then described to me getting up when her daughter phoned and being unable to "figure out" how to answer the phone. I discussed with her that both a low blood sugar or an acute infection, which was now being appropriately treated would do that. She would interrupt in each sentence, so I am not certain how much she understood. It became more and more apparent that patient was very stable to go home. Case management suggested continuing home health and getting a social work consult as well. At this point, she does not meet any inpatient criteria for continued stay, and she has no skilled needs that would qualify for a SNF. I was left with the impression that patient is not confused and that my suspicion of that has more to do with her directing the conversation depending on goals, thus some of the contradictions. When I went back to see patient regarding discharge planning and if she had any questions, she wanted first to know if she stayed the night and Medicare denied the stay whether they could also deny the stay at [facility]. I tried to explain the skilled need portion, and she responded, "look at me, I'm not stupid, do you think I'm stupid? We're done here." She declined a discharge exam, stating she had already signed her discharge paperwork. I hadn't entered a discharge order, or even finished her discharge plan yet, and attempted to explain this to her. She again stated we were done. I asked Chantel, from Case Management to come in with me; she explained to the patient that what she had signed was her Medicare rights and privileges. She allowed me to do exam with Chantel there, stating to Chantel "we clash. I know it and she knows it." After Chantel left, patient told me that I still hadn't figured out her night sweats; I reminded her that she had noted those symptoms had been present for a month or two prior to admission and that it seems to correlate with lower blood glucose levels. I noted that in response to that, we had decreased her Lantus from 15 down to 4 units. She stated that it was "quite a drop" and then said, "you should be monitoring that." I reassured her that we had been checking her blood glucose here, and that the lowest she went last night was 62, thus the decrease in Lantus dose down to 4 from previous day of 5. I also suggested that she use her short acting insulin exactly as prescribed through the day so that she doesn 't play catch up with the evening doses. She again tells me that she feels like the antibiotics are "just covering up the real problem." I stressed the need to complete the course as prescribed. Discharge diagnosis: Fever with presumptive pneumonia Secondary discharge diagnosis: 1) ESKD - on hemodialysis, tunneled catheter 2) Diabetes type 2 - with hypoglycemic episodes 3) Inconsistent insulin use 4) CVA in past 5) Diabetic neuropathy 6) Significant left foot drop; bilateral AFO splints 7) Chronic anemia, stable 8) Hypertension Reason for admission: Fever, confusion noted at home Pertinent studies/significant findings: Chest Xray on admission with suggestion of left basilar infiltrate Blood cultures negative x 48 hours Urine culture with "mixed nonpathogenic skin johnathan" WBC on admission 11.7 with 86 segs, 0 bands, 3 lymphs; WBC at discharge 7.7 H&H at discharge 9.8/27.8 PENDING AT DISCHARGE: Final urine and blood culture results - Time Spent with Patient Total time spent providing and/or coordinating discharge services: significant amount of time spent discussing discharge. Face to face time with patient 20 minutes, however greater than 30 minutes spent with subsequent coordination as detailed in summary. Greater than 30 minutes Medical - DS: Exam - Constitutional Vitals: Vital Signs Temp Pulse Pulse Resp BP BP Pulse Ox 12/19/17 10:52 60 122/63 12/19/17 10:36 60 123/63 12/19/17 10:21 60 111/57 12/19/17 10:02 69 98/53 12/19/17 09:33 60 113/59 12/19/17 09:04 98.3 F 60 127/64 12/19/17 07:39 97.6 F 64 16 156/60 92 12/19/17 04:00 98.5 F 64 16 162/61 91 12/18/17 23:58 98.7 F 61 16 163/63 91 12/18/17 20:00 98.3 F 62 18 136/51 92 12/18/17 15:29 97.2 F 14 140/66 92 12/18/17 11:42 98.1 F 18 148/58 99 Intake and Output 12/18/17 12/19/17 12/19/17 21:59 05:59 13:59 Intake Total 100 / 100 420 / 420 Output Total Balance 99 / 99 420 / 420 Intake: Oral 100 / 100 420 / 420 Output: # of times incontinent of urine Other: Meal cheese stick, peaches Percent of Meal Consumed 100% Feeding Ability Independent Weight 132 lb - Other Additional findings: GENERAL: Oriented. Frequently interrupts during conversation, but in longer discussions today and in meeting with patient and case management coordinator, it is very clear she has retained all previous information since admit. She is at times contradictory, but I no longer suspect due to confusion. She is argumentative with me, and frequently accusatory. Respirations unlabored. Initially refused exam, agreed once case management back in room. HEENT: Moist membranes, no scleral icterus. Good eye contact today. NECK: No masses, trachea is midline. LUNGS: Clear to bases bilaterally, no wheezes, crackles, focally diminished breath sounds. Respirations comfortable. COR: Irregularly irregular; no murmur noted today. Tunneled catheter right upper chest wall; Pacemaker left upper chest. In process of dialysis at present. ABDOMEN: Non-distended, soft, non-tender throughout, no guarding, no rebound. EXTREMITIES: No edema. Warm, no nailbed cyanosis. Unchanged flaccid left foot, more rigid right foot. Medical - DS: Data Labs on day of discharge: Labs from last 24 hours 12/19/17 04:15 Sodium 131 L Potassium 4.6 Chloride 91 L Carbon Dioxide 27 Anion Gap 13.0 BUN 37 H Creatinine 2.6 H GFR Calculation 18 Glucose 169 H Uric Acid 5.0 Calcium 8.7 Phosphorus 3.3 Magnesium 2.1 Total Bilirubin 0.2 Direct Bilirubin < 0.2 GGT 23 AST 11 ALT < 5 Alkaline Phosphatase 90 Lactate Dehydrogenase 195 Total Protein 5.8 L Albumin 2.6 L Globulin 3.2 Albumin/Globulin Ratio 0.8 L Triglycerides 93 Preliminary micro results at discharge 12/16/17 22:44 Blood Culture - Preliminary Blood 12/16/17 23:04 Blood Culture - Preliminary Blood 12/16/17 23:25 Urine Culture - Preliminary Urine - Clean Void [facility] - DS: A/P - Patient/Caregiver Discharge Instructions Activity: other (Use AFO splints for all ambulation.) Diet: Renal/Consistent Carbs Additional Instructions: 1) Check fingersticks before each meal and at bedtime. Cover fingersticks as prescribed by your sliding scale. 2) NEW LANTUS DOSE: Use only 4 (four) units daily. You previously were on 15 units, this is too much. Do not change Lantus based on blood glucose fingersticks. 3) Eat regular meals and snack at bedtime. 4) Continue your usual dialysis 5) Take Ceftin twice a day starting the evening of discharge. 6) Home health and psychotherapist social worker referrals have been placed. 7) Return if new or recurrent symptoms. Prescriptions: Cefuroxime [Ceftin] 500 mg PO Q12 #14 tab - Follow up Plan Follow up with: Gifty Chisholm ARNP [Primary Care Provider] - 12/21/17 Disposition: Home Health Service Prognosis: Good Rehab Potential: Good I certify that the patient requires SNF services: No Overall status at discharge: patient is back to baseline Medical - DS: Qual - VTE Deep Vein Thrombosis/Pulmonary Embolism Present on Admission: No
[2017-12-19] MEDS: levETIRAcetam 500 MG TABLET PO SCH (12:41)
== END 2017-12-19 19:30 | disposition home health service (06) | DRG 193 ==
LOC: ED 21:57 → ICU 12-17 02:39 → MEDSUR 12-17 17:30
PROVIDERS: ADMIT Family Medicine; ATTEND Family Medicine

== ENCOUNTER 2019-07-09 08:14 | Inpatient (IN) ==
[2019-07-09] MEDS ORDERED: PIPERACILLIN SODIUM/TAZOBACTAM 3.375 GM in DEXTROSE 5% IN WATER 50 ML IV ONE (08:39)
[2019-07-09] MEDS ORDERED: NALOXONE HCL 0.4 MG/ML VIAL IV ONE (08:44)
--- NOTE | 2019-07-09 08:44 | Emergency Department Note ---
Altered Mental Status HPI - General Chief Complaint: Altered Mental Status Stated Complaint: Altered mental status Time Seen by Provider: 07/09/19 08:21 Source: patient, EMS Mode of arrival: EMS Limitations: no limitations - History of Present Illness HPI Narrative: 73-year-old dialysis patient comes in for fever and altered mental status. She cannot give any meaningful history or review of systems. She only answer a few one-word questions with yes or no. Not clear how long she has been sick. Last dialysis was Sunday. Per EMS cold symptoms started yesterday. Oxygen saturations down to 88% but it is not clear if it is new for her - Related Data Home Medications Medication Instructions Recorded Confirmed Levothyroxine Sodium [Synthroid] 112 mcg PO QAMAC 07/03/15 03/04/19 levETIRAcetam [Levetiracetam] 500 mg PO BID 11/10/16 03/04/19 Clopidogrel Bisulfate [Plavix] 75 mg PO DAILY 11/20/16 03/04/19 Insulin Glargine, Human [Lantus] 6 unit SQ BID 01/18/18 03/04/19 Atorvastatin Calcium 80 mg PO DAILY 03/04/19 03/04/19 Carvedilol [Coreg] 6.25 mg PO BIDCC 03/04/19 03/04/19 Gabapentin 600 mg PO TID 03/04/19 03/04/19 Loperamide [Imodium] 2 mg PO BIDP PRN 03/04/19 03/04/19 Previous Rx's Medication Instructions Recorded Acetaminophen [Tylenol] 650 mg PO Q4-6HP PRN #0 tab 11/24/16 Accu-Chek 1 each FS ACHS strip 09/03/17 Dextrose [Insta-Glucose] 15 gm PO PRN PRN oral.susp 09/03/17 HYDROcodone/APAP 5/325MG [Metz 1 tab PO Q6HP PRN #30 tab 09/03/17 5-325Mg] Insulin Lispro [Humalog] See Protocol SQ ACHS unit 09/03/17 fluticasone propionate 50 2 spray INTRANASAL BID #9.9 g 02/20/19 mcg/actuation nasal spray,suspension Captopril [Capoten] 12.5 mg PO TID #90 tab 03/09/19 cloNIDine HCL [Catapres] 0.2 mg PO HS #30 tab 03/09/19 Benzonatate [Tessalon Perle] 100 mg PO TIDP PRN #20 cap 03/10/19 Zolpidem [Ambien] 5 mg PO HSP PRN #30 tab 03/10/19 sevelamer carbonate 800 mg tablet 800 mg PO TIDCC #90 tab 04/14/19 albuterol sulfate 90 mcg/actuation 1 puff INHALATION Q6H PRN #8 g 04/22/19 aerosol inhaler B complex 11-folic acid 1 mg-C 100 1 tab PO QDAY #90 tab 05/05/19 mg-biotin 300 mcg-zinc 50 mg tablet amlodipine 5 mg tablet 5 mg PO QDAY #90 tab 05/19/19 Allergies Allergy/AdvReac Type Severity Reaction Status Date / Time lactose AdvReac Diarrhea Verified 06/10/19 09:34 Review of Systems Limitations: ROS unobtainable due to patients medical condition Past Medical History - Past Medical History Attestation: Yes: The following information was validated with the patient. [facility] Narrative: Past Surgical History (Last Updated 03/04/19 @ 05:40 by Nick Moscoso DO) History of cataract extraction with lens replacement (Acute) Medical history: Reports: atrial fibrillation, CAD (coronary artery disease), CHF, chronic narcotics, CVA, dementia, DM (With neuropathy), hyperlipidemia, hypertension, myocardial infarction, pneumonia, renal disease (On dialysis), seizures, thyroid disease, other (pacemaker) Psychiatric history: Reports: no psych history CHAMBER WALKER history: Reports: non-contributory Surgical history ED: Reports: appendectomy, hysterectomy (Partial), knee replacement, orthopedic, other (Leg and foot), pacemaker/AICD, tonsillectomy, other (Dialysis catheter) - Social History smoking status: Former smoker Alcohol use: Reports: Occasionally Drug use: Reports: none. Denies: marijuana Physical Exam Patient is basically motionless on exam. Normocephalic atraumatic. I did pry open her eyes and her pupils were narrowed. When I did that I asked her the question " can you hear me", she answered yes. However she did not move at all. No nasal discharge or congestion. Oropharynx is with dry buccal mucosa. I could not get her to open her mouth so I could examine it. I do not see any perioral trauma. Neck is supple without lymphadenopathy thyromegaly or carotid bruit. She is wearing nasal cannula oxygen at this time. Heart is regular rate and rhythm. I cannot hear a murmur. She does have pacemaker spikes on the rhythm monitor. Lungs are basically clear to auscultation bilaterally but I cannot get her to take a deep breath so I can listen more closely. Abdomen is soft nontender nondistended. No peritoneal signs or guarding. She does have +1 pitting edema to bilateral ankles. This does appear to be chronic. She is somnolent but arousable but will only answer 1 word questions and that only a few of. She is unable to give me any meaningful history or review of systems. Limitations: no limitations Course Vital Signs Temperature 100 F H 07/09/19 08:16 Pulse Rate 62 07/09/19 08:16 Respiratory Rate 14 07/09/19 08:16 Blood Pressure 145/81 07/09/19 08:16 Pulse Oximetry (%) 88 L 07/09/19 08:16 Temperature 100 F H 07/09/19 08:16 Pulse Rate 62 07/09/19 08:16 Respiratory Rate 14 07/09/19 08:16 Blood Pressure 145/81 07/09/19 08:16 Pulse Oximetry (%) 88 L 07/09/19 08:16 Altered Mental Status - Lab Data Result diagrams: 07/09/19 08:35 07/09/19 08:35 Disposition Pt seen by DOCUMENTATION MANAGER/PA only: No Clinical Impression: End-stage renal disease on hemodialysis Altered mental status Qualifiers: Altered mental status type: somnolence Qualified Code(s): R40.0 - Somnolence Fever Qualifiers: Fever type: unspecified Qualified Code(s): R50.9 - Fever, unspecified Summary: Severe fever and altered mental status in a dialysis patient with no meaningful history or review of symptoms. Ordered CT scan of the head chest x-ray laboratory work-up as well as urine. Influenza swab ordered. Start blood cultures and lactic acid presumptively start some Zosyn for possible sepsis. Differential diagnosis includes sepsis versus stroke versus complicated UTI versus pneumonia or influenza. Patient be checked out to Dr. Sparrow at shift change Disposition: Still a Patient Condition: Fair Referrals: Gifty Chisholm, [facility] [Primary Care Provider] -
[2019-07-09] MEDS ORDERED: 0.9 % SODIUM CHLORIDE 1,000 ML IV SCH (08:45)
--- NOTE | 2019-07-09 08:54 | XRay Report ---
CLINICAL INFORMATION: cough fever COMPARISON: 03/14/2019 FINDINGS: The heart is markedly enlarged. Pacemaker and leads remain in stable satisfactory position. Mediastinum is unremarkable. The pulmonary vessels are mildly distended and there is mild interstitial edema throughout both lungs. Moderate patchy infiltrate in the right base is appreciated. There is minor left basilar airspace disease - likely atelectasis. There are small bilateral pleural effusions IMPRESSION: 1. Mild CHF 2. Moderate right basilar infiltrate suspect pneumonia or aspiration. 3. Mild left basilar airspace disease - likely atelectasis Interpreted and Authenticated by: Pradeep Martines 07/09/19
[2019-07-09 09:47] LABS: Basophils # (Auto) 0 K/mcL (0.0-0.3); Basophils % (Auto) 0.3 % (0.0-2.0); Eosinophils # (Auto) 0 K/mcL (0.0-0.7); Eosinophils % (Auto) 0.2 % (0.0-7.0); Granulocytes % (Auto) 84.8 % (38.0-78.0); Hematocrit 35.5 % (36.0-48.0); Hemoglobin 11.6 g/dL (12.0-15.0); Lymphocytes # (Auto) 0.4 K/mcL (1.5-4.8); Mean Cell Volume 89.7 fL (80.0-100.0); Mean Corpuscular HGB Conc 32.6 g/dL (31.0-36.0); Mean Platelet Volume 8.7 fL (7.4-10.4); Monocytes # (Auto) 0.3 K/mcL (0.1-0.9); Monocytes % (Auto) 5.7 % (1.0-12.0); Platelet Count 102 K/mcL (140-440); RBC 3.96 M/mcL (4.00-5.20); Red Cell Distribution Width 15.4 % (11.5-14.5); WBC 4.6 K/mcL (4.5-11.0)
--- NOTE | 2019-07-09 09:47 | Cat Scan Report ---
CLINICAL INFORMATION: Decreased mental status COMPARISON: Head CT 1.5 years ago 01/30/2018 TECHNIQUE: 2.5 mm helical slices were obtained in the skull base to vertex. Following reconstruction, axial reformatted images were reviewed at bone and parenchymal windows. The exam was performed using radiation dose optimization techniques including, but not limited to, automated exposure control, adjustment of the mA and/or kV according to patient size and use of iterative reconstruction technique. FINDINGS: The ventricles, sulci, fissures, and cisterns are symmetrically enlarged compatible mild atrophy - expected for age. Slight progression from previous study. There is no subdural hemorrhage or extra-axial fluid collection appreciated. There is mild patchy chronic ischemic changes noted in the cerebral white matter. There is no evidence of hemorrhage, mass effect, or edema. Bone windows show no osseous abnormality. IMPRESSION: Mild atrophy and chronic ischemic changes in the deep cerebral white matter - expected for age. No acute findings Subtotal opacification of all ethmoid air cells bilateral ethmoid sinusitis. Mild mucosal thickening left maxillary and left sphenoid sinus Interpreted and Authenticated by: Pradeep Martines 07/09/19
--- NOTE | 2019-07-09 09:50 | Emergency Department Note ---
General Adult HPI - General Chief complaint: Altered Mental Status Stated complaint: Altered mental status Time Seen by Provider: 07/09/19 08:21 Source: patient, EMS Mode of arrival: EMS Limitations: no limitations - History of Present Illness HPI Narrative: 73-year-old female presenting to the emergency department with having some altered mental status. Patient has been having some flulike symptoms as prodrome to this patient also with concern for potential narcotic exposure. Patient without exacerbating or ameliorating. Patient with onset of symptoms over the past 24 hours. Patient without associated symptoms such as nausea vomiting or diarrhea. - Related Data Home Medications Medication Instructions Recorded Confirmed levETIRAcetam [Levetiracetam] 500 mg PO BID 11/10/16 07/09/19 Clopidogrel Bisulfate [Plavix] 75 mg PO DAILY 11/20/16 07/09/19 Insulin Glargine, Human [Lantus] 6 unit SQ BID 01/18/18 03/04/19 Atorvastatin Calcium 80 mg PO DAILY 03/04/19 07/09/19 Carvedilol [Coreg] 2 tablet PO BID 03/04/19 07/09/19 Gabapentin 600 mg PO TID 03/04/19 07/09/19 Loperamide [Imodium] 2 mg PO BIDP PRN 03/04/19 07/09/19 Fluticasone Propionate [Flonase 2 spray INTRANASAL DAILY 07/09/19 07/09/19 Allergy Relief] HYDROcodone/APAP 5/325MG [Foley 0.5 - 1 tab PO TIDP PRN 07/09/19 07/09/19 5-325Mg] Levothyroxine [Synthroid] 125 mcg PO DAILY 07/09/19 07/09/19 Lidocaine/Prilocaine 1 each TP QDAY 07/09/19 07/09/19 [Lidocaine-Prilocaine Cream] Polyethylene Glycol 3350 [Miralax] 17 gm PO DAILY 07/09/19 07/09/19 cloNIDine HCL [Catapres] 0.2 mg PO BID 07/09/19 07/09/19 Previous Rx's Medication Instructions Recorded Acetaminophen [Tylenol] 650 mg PO Q4-6HP PRN #0 tab 11/24/16 Accu-Chek 1 each FS ACHS strip 09/03/17 Dextrose [Insta-Glucose] 15 gm PO PRN PRN oral.susp 02/12/18 Insulin Lispro [Humalog] See Protocol SQ ACHS unit 09/03/17 Captopril [Capoten] 12.5 mg PO TID #90 tab 03/09/19 Benzonatate [Tessalon Perle] 100 mg PO TIDP PRN #20 cap 03/10/19 Zolpidem [Ambien] 5 mg PO HSP PRN #30 tab 03/10/19 sevelamer carbonate 800 mg tablet 800 mg PO TIDCC #90 tab 04/14/19 albuterol sulfate 90 mcg/actuation 1 puff INHALATION Q6H PRN #8 g 04/22/19 aerosol inhaler B complex 11-folic acid 1 mg-C 100 1 tab PO QDAY #90 tab 05/05/19 mg-biotin 300 mcg-zinc 50 mg tablet amlodipine 5 mg tablet 5 mg PO QDAY #90 tab 05/19/19 Allergies Allergy/AdvReac Type Severity Reaction Status Date / Time lactose AdvReac Diarrhea Verified 06/10/19 09:34 Review of Systems All systems ED: reviewed and negative except as stated. Past Medical History - Past Medical History PMF Narrative: All Active Problems (Last Updated 03/04/19 @ 05:41 by Nick Moscoso DO) Knee contusion (Acute) Altered mental status (Acute) Status post insertion of drug-eluting stent into left anterior descending (LAD) artery (Chronic) CAD (coronary artery disease) (Chronic) Status cardiac pacemaker (Chronic) AF (paroxysmal atrial fibrillation) (Chronic) Hypoxia (Acute) Contusion of hip (Acute) Pneumonia (Acute) Fever (Acute) CKD (chronic kidney disease), stage IV (Chronic) CHF (congestive heart failure) (Acute) Chronic anticoagulation (Chronic) Artificial cardiac pacemaker (Chronic) Diabetes mellitus type 2 with complications (Chronic) Diabetic peripheral neuropathy (Chronic) Hypothyroidism, acquired (Chronic) History of recurrent UTI (urinary tract infection) (Chronic) Myoclonus (Chronic) Dementia (Chronic) Secondary hyperparathyroidism of renal origin (Chronic) End-stage renal disease on hemodialysis (Chronic) Anemia due to end stage renal disease (Chronic) Hyponatremia (Chronic) Hypertensive renal disease (Chronic) Medical history: Reports: atrial fibrillation, CAD (coronary artery disease), CHF, chronic narcotics, CVA, dementia, DM (With neuropathy), hyperlipidemia, hypertension, myocardial infarction, pneumonia, renal disease (On dialysis), seizures, thyroid disease, other (pacemaker) Psychiatric history: Reports: no psych history DOCK HAND history: Reports: non-contributory Surgical history ED: Reports: appendectomy, hysterectomy (Partial), knee replac ement, orthopedic, other (Leg and foot), pacemaker/AICD, tonsillectomy, other (Dialysis catheter) - Social History smoking status: Former smoker Alcohol use: Reports: Occasionally Drug use: Reports: none. Denies: marijuana Physical Exam General: Alert, interactive, appropriate Head: Atraumatic, normocephalic Eyes: Extraocular movements intact Neck: Trachea midline, full range of motion Chest: Symmetrical chest wall rise, breathing normally; diffuse coarse breath sounds Cardiovascular: Patient with excellent perfusion to the extremities Extremities: Full range of motion joints, warm well perfused Neuro: Alert, cranial nerves II through XII grossly intact, normal gait Psychiatric: Patient poorly communicative Limitations: no limitations Course Course Narrative: 73-year-old patient presenting to the emergency department chief complaint of altered mental status. Patient's recent medical history is evaluated for infectious illnesses, history of organ failure, medication list, drug/alcohol history, and depression patient's mental status made them unable to provide significant clues to current symptoms differential diagnosis included but not limited to stroke, intracranial hemorrhage, electrolyte derangement, DKA/HHS, sepsis, toxicology including alcohol and overdose, status epilepticus. Vital Signs Temperature 100 F H 07/09/19 08:16 Pulse Rate 62 07/09/19 08:16 Respiratory Rate 14 07/09/19 08:16 Blood Pressure 145/81 07/09/19 08:16 Pulse Oximetry (%) 88 L 07/09/19 08:16 Temperature 100 F H 07/09/19 08:16 Pulse Rate 60 07/09/19 13:06 Respiratory Rate 17 07/09/19 13:06 Blood Pressure 137/63 07/09/19 13:01 Pulse Oximetry (%) 99 07/09/19 13:06 Medical Decision Making - MDM Narrative Medical decision making narrative: 73 year old dialysis patient presenting with confusion/AMS, pt found to be normally on 2L oxygen at home, pt also missing dialysis today secondary to this issue. Pt with flu swab indicating influenza B as well as CXR demonstrating RML PNA. Discussed the case with the hospitalist and the consensus medical opinion is to admit the pt for ongoing care. Dr. Lucero is also directly involved in care and he presented to the ED for discussion regarding management. - Lab Data Result diagrams: 07/09/19 08:35 07/09/19 08:35 Lab Results 07/09/19 07/09/19 07/09/19 Range/Units 08:35 08:35 08:35 WBC 4.6 (4.5-11.0) K/mcL RBC 3.96 L (4.00-5.20) M/mcL Hgb 11.6 L (12.0-15.0) g/dL Hct 35.5 L (36.0-48.0) % MCV 89.7 (80.0-100.0) fL MCH 29.3 (26.0-34.0) pg MCHC 32.6 (31.0-36.0) g/dL RDW 15.4 H (11.5-14.5) % Plt Count 102 L (140-440) K/mcL MPV 8.7 (7.4-10.4) fL Gran % 84.8 H (38.0-78.0) % Lymph % (Auto) 9.0 L (15.5-49.0) % [place] % (Auto) 5.7 (1.0-12.0) % Eos % (Auto) 0.2 (0.0-7.0) % Baso % (Auto) 0.3 (0.0-2.0) % Gran # 3.9 (1.8-8.0) K/mcL Lymph # (Auto) 0.4 L (1.5-4.8) K/mcL [place] # (Auto) 0.3 (0.1-0.9) K/mcL Eos # (Auto) 0 (0.0-0.7) K/mcL Baso # (Auto) 0 (0.0-0.3) K/mcL VBG Lactic Acid (0.5-2.0) mmol/L Sodium 129 L (133-145) mmol/L Potassium 4.6 (3.3-5.1) mmol/L Chloride 91 L (96-108) mmol/L Carbon Dioxide 26 (22-30) mmol/L Anion Gap 12.0 (8-16) BUN 54 H (8-23) mg/dl Creatinine 4.2 H (0.6-1.1) mg/dl GFR Calculation 10 Glucose 219 H (70-105) mg/dL Calcium 8.3 L (8.6-10.4) mg/dl Total Bilirubin 0.5 (0.0-1.0) mg/dL AST 20 (0-37) U/l ALT 8 (0-40) U/l Alkaline Phosphatase 164 H (39-117) U/L Total Protein 6.2 (5.9-8.4) gm/dL Albumin 3.5 (3.2-5.2) gm/dL Globulin 2.7 (2.2-3.7) gm/dL Albumin/Globulin Ratio 1.3 (1.0-2.3) Procalcitonin 0.77 (<0.10) ng/mL Urine Color Urine Appearance Urine pH (5.0-9.0) Ur Specific [place] (1.000-1.035) Urine Protein (NEG) mg/dL Urine Glucose (UA) (NEG) mg/dL Urine Ketones (NEG) mg/dL Urine Occult Blood (<5) rory/mcL Urine Nitrate (NEG) Urine Bilirubin (NEG) mg/dL Urine Urobilinogen (NEG) mg/dL Ur Leukocyte Esterase (NEG) /uL Urine RBC (0-1) /hpf Urine WBC (0-4) /hpf Ur Squamous Epith Cells (0-4) /hpf Amorphous Crystals (0) /hpf Urine Bacteria (0) /hpf Hyaline Casts (0-2) /lpf Granular Casts (0) /lpf Ur Culture Indicated? Urine Opiates Screen (NONDETECTED) Ur Oxycodone Screen (NONDETECTED) Urine Methadone Screen (NONDETECTED) Ur Barbiturates Screen (NONDETECTED) Ur Phencyclidine Scrn (NONDETECTED) Ur Amphetamines Screen (NONDETECTED) U Benzodiazepines Scrn (NONDETECTED) Urine Cocaine Screen (NONDETECTED) U Marijuana (THC) Screen (NONDETECTED) 07/09/19 07/09/19 07/09/19 Range/Units 08:35 10:34 10:34 WBC (4.5-11.0) K/mcL RBC (4.00-5.20) M/mcL Hgb (12.0-15.0) g/dL Hct (36.0-48.0) % MCV (80.0-100.0) fL MCH (26.0-34.0) pg MCHC (31.0-36.0) g/dL RDW (11.5-14.5) % Plt Count (140-440) K/mcL MPV (7.4-10.4) fL Gran % (38.0-78.0) % Lymph % (Auto) (15.5-49.0) % [place] % (Auto) (1.0-12.0) % Eos % (Auto) (0.0-7.0) % Baso % (Auto) (0.0-2.0) % Gran # (1.8-8.0) K/mcL Lymph # (Auto) (1.5-4.8) K/mcL [place] # (Auto) (0.1-0.9) K/mcL Eos # (Auto) (0.0-0.7) K/mcL Baso # (Auto) (0.0-0.3) K/mcL VBG Lactic Acid 1.0 (0.5-2.0) mmol/L Sodium (133-145) mmol/L Potassium (3.3-5.1) mmol/L Chloride (96-108) mmol/L Carbon Dioxide (22-30) mmol/L Anion Gap (8-16) BUN (8-23) mg/dl Creatinine (0.6-1.1) mg/dl GFR Calculation Glucose (70-105) mg/dL Calcium (8.6-10.4) mg/dl Total Bilirubin (0.0-1.0) mg/dL AST (0-37) U/l ALT (0-40) U/l Alkaline Phosphatase (39-117) U/L Total Protein (5.9-8.4) gm/dL Albumin (3.2-5.2) gm/dL Globulin (2.2-3.7) gm/dL Albumin/Globulin Ratio (1.0-2.3) Procalcitonin (<0.10) ng/mL Urine Color Yellow Urine Appearance Hazy Urine pH 5.0 (5.0-9.0) Ur Specific [place] 1.018 (1.000-1.035) Urine Protein >=500 A (NEG) mg/dL Urine Glucose (UA) 150 A (NEG) mg/dL Urine Ketones Neg (NEG) mg/dL Urine Occult Blood Trace A (<5) rory/mcL Urine Nitrate Neg (NEG) Urine Bilirubin Neg (NEG) mg/dL Urine Urobilinogen Neg (NEG) mg/dL Ur Leukocyte Esterase Neg (NEG) /uL Urine RBC 10 H (0-1) /hpf Urine WBC 4 (0-4) /hpf Ur Squamous Epith Cells 1 (0-4) /hpf Amorphous Crystals Few A (0) /hpf Urine Bacteria 0 (0) /hpf Hyaline Casts 3 H (0-2) /lpf Granular Casts 3 H (0) /lpf Ur Culture Indicated? No Urine Opiates Screen None detected (NONDETECTED) Ur Oxycodone Screen None detected (NONDETECTED) Urine Methadone Screen None detected (NONDETECTED) Ur Barbiturates Screen None detected (NONDETECTED) Ur Phencyclidine Scrn None detected (NONDETECTED) Ur Amphetamines Screen None detected (NONDETECTED) U Benzodiazepines Scrn None detected (NONDETECTED) Urine Cocaine Screen None detected (NONDETECTED) U Marijuana (THC) Screen None detected (NONDETECTED) Disposition Pt seen by SCHOOL EXAMINER/PA only: No Clinical Impression: End-stage renal disease on hemodialysis, Influenza B Altered mental status Qualifiers: Altered mental status type: somnolence Qualified Code(s): R40.0 - Somnolence Fever Qualifiers: Fever type: unspecified Qualified Code(s): R50.9 - Fever, unspecified Pneumonia Qualifiers: Pneumonia type: aspiration pneumonia Aspiration pneumonia type: unspecified Laterality: right Lung location: middle lobe of lung Qualified Code(s): J69.0 - Pneumonitis due to inhalation of food and vomit Disposition: Xfer As Inpt ([facility]) Condition: Fair Referrals: Gifty Chisholm ARNP [Primary Care Provider] -
[2019-07-09 10:05] LABS: ALT/SGPT 8 U/l (0-40); AST/SGOT 20 U/l (0-37); Albumin 3.5 gm/dL (3.2-5.2); Albumin/Globulin Ratio 1.3 (1.0-2.3); Alkaline Phosphatase 164 U/L (39-117); Bilirubin,Total 0.5 mg/dL (0.0-1.0); Blood Urea Nitrogen 54 mg/dl (8-23); Calcium 8.3 mg/dl (8.6-10.4); Carbon Dioxide 26 mmol/L (22-30); Globulin 2.7 gm/dL (2.2-3.7); Glomerular Filtration Rate 10; Glucose 219 mg/dL (70-105)
[2019-07-09 10:11] LABS: Chloride 91 mmol/L (96-108)
[2019-07-09] MEDS ORDERED: 0.9 % SODIUM CHLORIDE 1,000 ML IV ONE (11:30)
[2019-07-09 11:54] LABS: Amphetamine Screen,Urine NONE DETECTED (NONDETECTED); Appearance,Urine HAZY; Bacteria,Urine 0 /hpf (0); Barbiturate Screen,Urine NONE DETECTED (NONDETECTED); Benzodiazepines Screen,Urine NONE DETECTED (NONDETECTED); Bilirubin,Urine NEG (NEG); Cannabinoid Screen,Urine NONE DETECTED (NONDETECTED); Cocaine Screen,Urine NONE DETECTED (NONDETECTED); Color,Urine YELLOW; Culture Indicated,Urine NO; Glucose,Urine (UA) 150 mg/dL (NEG); Ketones,Urine NEG (NEG); Leukocyte Esterase,Urine NEG /uL (NEG); Nitrate,Urine NEG (NEG); Opiate Screen,Urine NONE DETECTED (NONDETECTED); Oxycodone, Urine Screen NONE DETECTED (NONDETECTED); Phencyclidine Screen,Urine NONE DETECTED (NONDETECTED); Protein,Urine >=500 mg/dL (NEG); Specific Gravity,Urine 1.018 (1.000-1.035); Urine Amorphous Crystals FEW /hpf (0); Urine Blood TRACE ery/mcL (<5); Urine Granular Cast 3 /lpf (0); Urine Hyaline Cast 3 /lpf (0-2); Urine RBC 10 /hpf (0-1); Urine Squamous Epithelial Cell 1 /hpf (0-4); Urine WBC 4 /hpf (0-4); Urobilinogen,Urine NEG (NEG)
[2019-07-09] MEDS ORDERED: ONDANSETRON 4 MG/2 ML VIAL IV PRN (13:26)
--- NOTE | 2019-07-09 13:42 | Nephrology Consult Note ---
History of Present Illness - Reason for Consult Patient information: Note initiated : 07/09/19 at 1:40 pm Patient: Shanda Rhodes a 73 y/o F admitted on for Altered mental status. Consult date: 07/09/19 end stage renal disease, hyponatremia Requesting physician: Sanchez Sparrow - Chief Complaint Altered mental status - History of Present Illness Shanda Rhodes is a 73-year-old female with end stage renal disease stage on chronic hemodialysis (on MWF, at [facility]), secondary hyperparathyroidism, chronic anemia due to renal failure, hypertension and diabetes mellitus type 2, coronary artery disease s/p stents, s/p AICD placement, paroxysmal atrial fibrillation, chronic diastolic heart failure (Echo on 03/05/19: LVEF 45-50%, Grade II diastolic dysfunction), presented to ED on 07/09/19 and being admitted. She presented for altered mental status. She has been having flu like symptoms. Her work up was positive for influenza type B and pneumonia. She is due for dialysis today. She usually has lower extremity edema. Her UF has been limited due to heart failure. Review of Systems ROS unobtainable: due to mental status Past History Past medical history: Medical History (Last Updated 03/04/19 @ 05:41 by Nick Moscoso DO) CKD (chronic kidney disease), stage IV (Chronic) CHF (congestive heart failure) (Acute) Chronic anticoagulation (Chronic) Artificial cardiac pacemaker (Chronic) CVA (cerebral vascular accident) (Resolved) Diabetes mellitus type 2 with complications (Chronic) Diabetic peripheral neuropathy (Chronic) Hypothyroidism, acquired (Chronic) History of recurrent UTI (urinary tract infection) (Chronic) Myoclonus (Chronic) Dementia (Chronic) Secondary hyperparathyroidism of renal origin (Chronic) End-stage renal disease on hemodialysis (Chronic) Anemia due to end stage renal disease (Chronic) Hyponatremia (Chronic) Hypertensive renal disease (Chronic) Acute exacerbation of CHF (congestive heart failure) (Resolved) Acute kidney injury superimposed on chronic kidney disease (Resolved) Acute on chronic renal failure (Resolved) Acute renal failure superimposed on stage 3 chronic kidney disease (Resolved) Acute respiratory failure with hypoxia (Resolved) Altered mental status (Resolved) Anemia (Resolved) Anemia in stage 3 chronic kidney disease (Resolved) Blepharitis of eyelid of right eye (Resolved) CKD (chronic kidney disease), stage III (Resolved) Chronic narcotic use (Resolved) Colitis (Resolved) Community acquired pneumonia (Resolved) Contusion of left hand including fingers (Resolved) Contusion of left hip and thigh (Resolved) Contusion of rib on right side (Resolved) Contusion of right hand including fingers (Resolved) Dehydration (Resolved) Diabetic ketoacidosis associated with type 2 diabetes mellitus (Resolved) Fatigue (Resolved) Fever and chills (Resolved) Hematoma (Resolved) Hemicrania (Resolved) Hypoglycemia (Resolved) Hypoglycemia (Resolved) Hypoglycemia (Resolved) Hypoxia (Resolved) Injury of right rotator cuff (Resolved) Left hand pain (Resolved) Metabolic acidosis (Resolved) Pneumonia (Resolved) Prerenal renal failure (Resolved) Right hand pain (Resolved) Sinusitis (Resolved) Sternal pain (Resolved) Syncope and collapse (Resolved) Toenail avulsion (Resolved) UTI (urinary tract infection) (Resolved) Upper respiratory infection (Resolved) Urinary tract infection (Resolved) Vasovagal syncope (Resolved) Past surgical history: Past Surgical History (Last Updated 03/04/19 @ 05:40 by Nick Moscoso DO) History of cataract extraction with lens replacement (Acute) Medications and Allergies Home Medications Medication Instructions Recorded Confirmed Type levETIRAcetam [Levetiracetam] 500 mg PO BID 11/10/16 03/04/19 History Clopidogrel Bisulfate [Plavix] 75 mg PO DAILY 11/20/16 03/04/19 History Acetaminophen [Tylenol] 650 mg PO Q4-6HP PRN #0 tab 11/24/16 03/04/19 Rx Accu-Chek 1 each FS ACHS strip 09/03/17 03/04/19 Rx Dextrose [Insta-Glucose] 15 gm PO PRN PRN oral.susp 09/03/17 03/04/19 Rx Insulin Lispro [Humalog] See Protocol SQ ACHS unit 09/03/17 03/04/19 Rx Insulin Glargine, Human [Lantus] 6 unit SQ BID 01/18/18 03/04/19 History Atorvastatin Calcium 80 mg PO DAILY 03/04/19 03/04/19 History Carvedilol [Coreg] 6.25 mg PO BIDCC 03/04/19 03/04/19 History Gabapentin 600 mg PO TID 03/04/19 03/04/19 History Loperamide [Imodium] 2 mg PO BIDP PRN 03/04/19 03/04/19 History Captopril [Capoten] 12.5 mg PO TID #90 tab 03/09/19 Rx Benzonatate [Tessalon Perle] 100 mg PO TIDP PRN #20 cap 03/10/19 Rx Zolpidem [Ambien] 5 mg PO HSP PRN #30 tab 03/10/19 Rx sevelamer carbonate 800 mg tablet 800 mg PO TIDCC #90 tab 04/14/19 Rx albuterol sulfate 90 mcg/actuation 1 puff INHALATION Q6H PRN #8 g 04/22/19 Rx aerosol inhaler B complex 11-folic acid 1 mg-C 100 1 tab PO QDAY #90 tab 05/05/19 Rx mg-biotin 300 mcg-zinc 50 mg tablet amlodipine 5 mg tablet 5 mg PO QDAY #90 tab 05/19/19 Rx Fluticasone Propionate [Flonase 2 spray INTRANASAL DAILY 07/09/19 07/09/19 History Allergy Relief] HYDROcodone/APAP 5/325MG [[place] 0.5 - 1 tab PO TIDP PRN 07/09/19 07/09/19 History 5-325Mg] Levothyroxine [Synthroid] 125 mcg PO DAILY 07/09/19 07/09/19 History Lidocaine/Prilocaine 1 each TP QDAY 07/09/19 07/09/19 History [Lidocaine-Prilocaine Cream] cloNIDine HCL [Catapres] 0.2 mg PO BID 07/09/19 07/09/19 History Allergies Allergy/AdvReac Type Severity Reaction Status Date / Time lactose AdvReac Diarrhea Verified 06/10/19 09:34 Exam - Vital Signs Vital signs: Temp Pulse Resp BP Pulse Ox 100 F H 60 17 137/63 99 07/09/19 08:16 07/09/19 13:06 07/09/19 13:06 07/09/19 13:01 07/09/19 13:06 - General Appearance General appearance: chronically ill EENT: mucous membranes dry Neck: supple Respiratory: rales Cardiology: edema Gastrointestinal: no tenderness Integumentary: warm and dry Neurologic: confused Musculoskeletal: no deformities Psychiatric: mood/affect appropriate, cooperative Results - Lab Results 07/09/19 08:35 07/09/19 08:35 Most recent lab results Calcium 8.3 mg/dl (8.6-10.4) L 07/09/19 08:35 Assessment and Plan (1) End-stage renal disease on hemodialysis Shanda Rhodes is a 73-year-old female with end stage renal disease stage on chronic hemodialysis (on MWF, at [facility]), secondary hyperparathyroidism, chronic anemia due to renal failure, hypertension and diabetes mellitus type 2, coronary artery disease s/p stents, s/p AICD placement, paroxysmal atrial fibrillation, chronic diastolic heart failure (Echo on 03/05/19: LVEF 45-50%, Grade II diastolic dysfunction), presented to ED on 07/09/19 and being admitted. She presented for altered mental status. She has been having flu like symptoms. Her work up was positive for influenza type B and pneumonia. She is due for dialysis today. She usually has lower extremity edema. Her UF has been limited due to heart failure. End stage renal disease stage on chronic hemodialysis Chronic anemia due to ESRD Hyponatremia Plan: Hemodialysis today for 3 hours and 2.3 kg UF goal. Antibiotic dosage for hemodialysis. Status: Chronic Priority: Medium (2) Hyponatremia Status: Chronic Priority: Medium (3) Anemia in ESRD (end-stage renal disease) Status: Chronic Priority: Medium
[2019-07-09] MEDS ORDERED: cefTRIAXone 1 GM in DEXTROSE 5% IN WATER 50 ML IV SCH (14:51)
[2019-07-09] MEDS ORDERED: DEXTROSE 31 GM ORAL.SUSP PO PRN ×2 (14:51→16:08)
[2019-07-09] MEDS ORDERED: AZITHROMYCIN 500 MG in DEXTROSE 5% IN WATER 250 ML IV SCH (14:51)
[2019-07-09] MEDS ORDERED: DEXTROSE 50% 50 ML VIAL IV PRN (14:51)
[2019-07-09] MEDS ORDERED: cefTRIAXone 1 GM VIAL IV SCH (15:00)
--- NOTE | 2019-07-09 15:05 | Internal Med History&Physical ---
Medical - H&P: HPI Patient information: Note initiated : 07/09/19 at 2:57 pm Service Date, if different from initiated Date: [] Patient: Shanda Rhodes a 73 y/o F admitted on 07/09/19 for Altered mental status. Chief Complaint: [AMS today] History of present illness: Ms. Rhodes is a 73 year old F with a history of multiple comorbidities including Chronic systolic and diatolic CHF, ESRD on HD, DM type 2, HTN, CAD s/p stenting, and paroxysmal atrial fibrillation who was brought to the ER due to AMS. Patient is lethargic and confusion. All medical history is obtained from medical chart and ER physician Dr. Sparrow. It was reported that patient is confused and lethargic today. Patient has been having flulike symptoms over the past days. No recent travel or sick contact. In the ER, she was found to have positive influenza B and chest x-ray showed possible pneumonia. She was given 2 L normal saline and 1 dose of Zosyn. When I saw this patient in the ER, she was still lethargic and sleepy. BP was soft. Oxygen saturation > =95 on RM. ROS unobtainable: due to mental status Medical - H&P: PMH Problems Reviewed: Yes Medical history: Medical History (Last Updated 03/04/19 @ 05:41 by Nick Moscoso DO) CKD (chronic kidney disease), stage IV (Chronic) CHF (congestive heart failure) (Acute) Chronic anticoagulation (Chronic) Artificial cardiac pacemaker (Chronic) CVA (cerebral vascular accident) (Resolved) Diabetes mellitus type 2 with complications (Chronic) Diabetic peripheral neuropathy (Chronic) Hypothyroidism, acquired (Chronic) History of recurrent UTI (urinary tract infection) (Chronic) Myoclonus (Chronic) Dementia (Chronic) Secondary hyperparathyroidism of renal origin (Chronic) End-stage renal disease on hemodialysis (Chronic) Anemia due to end stage renal disease (Chronic) Hyponatremia (Chronic) Hypertensive renal disease (Chronic) Acute exacerbation of CHF (congestive heart failure) (Resolved) Acute kidney injury superimposed on chronic kidney disease (Resolved) Acute on chronic renal failure (Resolved) Acute renal failure superimposed on stage 3 chronic kidney disease (Resolved) Acute respiratory failure with hypoxia (Resolved) Altered mental status (Resolved) Anemia (Resolved) Anemia in stage 3 chronic kidney disease (Resolved) Blepharitis of eyelid of right eye (Resolved) CKD (chronic kidney disease), stage III (Resolved) Chronic narcotic use (Resolved) Colitis (Resolved) Community acquired pneumonia (Resolved) Contusion of left hand including fingers (Resolved) Contusion of left hip and thigh (Resolved) Contusion of rib on right side (Resolved) Contusion of right hand including fingers (Resolved) Dehydration (Resolved) Diabetic ketoacidosis associated with type 2 diabetes mellitus (Resolved) Fatigue (Resolved) Fever and chills (Resolved) Hematoma (Resolved) Hemicrania (Resolved) Hypoglycemia (Resolved) Hypoglycemia (Resolved) Hypoglycemia (Resolved) Hypoxia (Resolved) Injury of right rotator cuff (Resolved) Left hand pain (Resolved) Metabolic acidosis (Resolved) Pneumonia (Resolved) Prerenal renal failure (Resolved) Right hand pain (Resolved) Sinusitis (Resolved) Sternal pain (Resolved) Syncope and collapse (Resolved) Toenail avulsion (Resolved) UTI (urinary tract infection) (Resolved) Upper respiratory infection (Resolved) Urinary tract infection (Resolved) Vasovagal syncope (Resolved) Family history: reviewed and not pertinent (unable to obtain) Social history: unable to obtain Medical - H&P: Meds Home Medications Medication Instructions Recorded Confirmed Type levETIRAcetam [Levetiracetam] 500 mg PO BID 11/10/16 07/09/19 History Clopidogrel Bisulfate [Plavix] 75 mg PO DAILY 11/20/16 07/09/19 History Acetaminophen [Tylenol] 650 mg PO Q4-6HP PRN #0 tab 11/24/16 03/04/19 Rx Accu-Chek 1 each FS ACHS strip 09/03/17 07/09/19 Rx Dextrose [Insta-Glucose] 15 gm PO PRN PRN oral.susp 09/03/17 03/04/19 Rx Insulin Lispro [Humalog] See Protocol SQ ACHS unit 09/03/17 07/09/19 Rx Insulin Glargine, Human [Lantus] 8 unit SQ BID 01/18/18 07/09/19 History Atorvastatin Calcium 80 mg PO DAILY 03/04/19 07/09/19 History Carvedilol [Coreg] 2 tablet PO BID 03/04/19 07/09/19 History Gabapentin 600 mg PO TID 03/04/19 07/09/19 History Loperamide [Imodium] 2 mg PO BIDP PRN 03/04/19 07/09/19 History Captopril [Capoten] 12.5 mg PO TID #90 tab 03/09/19 07/09/19 Rx Benzonatate [Tessalon Perle] 100 mg PO TIDP PRN #20 cap 03/10/19 07/09/19 Rx Zolpidem [Ambien] 5 mg PO HSP PRN #30 tab 03/10/19 07/09/19 Rx albuterol sulfate 90 mcg/actuation 1 puff INHALATION Q6H PRN #8 g 04/22/19 07/09/19 Rx aerosol inhaler B complex 11-folic acid 1 mg-C 100 1 tab PO QDAY #90 tab 05/05/19 07/09/19 Rx mg-biotin 300 mcg-zinc 50 mg tablet amlodipine 5 mg tablet 5 mg PO QDAY #90 tab 05/19/19 Rx Fluticasone Propionate [Flonase 2 spray INTRANASAL DAILY 07/09/19 07/09/19 History Allergy Relief] HYDROcodone/APAP 5/325MG [[place] 0.5 - 1 tab PO TIDP PRN 07/09/19 07/09/19 History 5-325Mg] Levothyroxine [Synthroid] 125 mcg PO DAILY 07/09/19 07/09/19 History Lidocaine/Prilocaine 1 each TP QDAY 07/09/19 07/09/19 History [Lidocaine-Prilocaine Cream] Nitroglycerin [Nitrostat] 0.4 mg SL Q5M PRN 07/09/19 07/09/19 History Ondansetron [Zofran ODT] 4 mg SL Q8H PRN 07/09/19 07/09/19 History Polyethylene Glycol 3350 [Miralax] 17 gm PO DAILY 07/09/19 07/09/19 History Polymyxin B Sulf/Trimethoprim 1 gtt BOTH EYES Q6HP PRN 07/09/19 07/09/19 History [Polytrim Eye Drops] Sennosides [Senna] 2 tab PO DAILY 07/09/19 07/09/19 History Sevelamer Carbonate 800 mg PO TID 07/09/19 07/09/19 History cloNIDine HCL [Catapres] 0.2 mg PO BID 07/09/19 07/09/19 History Allergies Allergy/AdvReac Type Severity Reaction Status Date / Time lactose AdvReac Diarrhea Verified 06/10/19 09:34 Medical - H&P: Exam - Constitutional Vitals: Temp Pulse Resp BP Pulse Ox 100 F H 74 18 147/67 96 07/09/19 14:50 07/09/19 14:50 07/09/19 14:50 07/09/19 14:50 07/09/19 14:50 Exam: Patient is lethargic and lying in bed. She does not answer questions - Head Head exam: Present: atraumatic, normocephalic - Eye Eye exam: Present: normal appearance - Expanded Eye Exam Pupils: reactive: Bilateral - Expanded ENT Exam Mouth exam: Present: moist - Neck Neck exam: Present: normal inspection - Respiratory Respiratory exam: Present: rales (over right lower field) - Expanded Respiratory Exam Location: rales: Right, Lower - Cardiovascular Cardiovascular exam: Present: irregular rhythm - GI/Abdominal GI/Abdominal exam: Present: normal bowel sounds (no tenderness), soft - Extremities Exam Extremities exam: Present: pedal edema (Piting edema+ in both legs), Arthur's sign (negative. ), Foot pink and warm - Expanded Lower Extremities Exam Hip exam: Present: normal inspection Lower Leg exam: Present: swelling (+) - Neurological Exam Neurological exam: Present: altered, reflexes normal (confusion, and lethargic, does not seem to have focal neurological deficits) - Skin Skin exam: Present: normal color Medical - H&P: Reslt - Labs CBC & Chem 7: 07/09/19 08:35 07/09/19 08:35 Labs: Short CBC 07/09/19 Range/Units 08:35 WBC 4.6 (4.5-11.0) K/mcL Hgb 11.6 L (12.0-15.0) g/dL Hct 35.5 L (36.0-48.0) % Plt Count 102 L (140-440) K/mcL BMP 07/09/19 08:35 Sodium 129 L Potassium 4.6 Chloride 91 L Carbon Dioxide 26 BUN 54 H Creatinine 4.2 H Glucose 219 H Calcium 8.3 L Liver Function 07/09/19 Range/Units 08:35 Total Bilirubin 0.5 (0.0-1.0) mg/dL AST 20 (0-37) U/l ALT 8 (0-40) U/l Alkaline Phosphatase 164 H (39-117) U/L Albumin 3.5 (3.2-5.2) gm/dL Urine 07/09/19 Range/Units 10:34 Urine Color Yellow Urine Appearance Hazy Urine pH 5.0 (5.0-9.0) Ur Specific [place] 1.018 (1.000-1.035) Urine Protein >=500 A (NEG) mg/dL Urine Glucose (UA) 150 A (NEG) mg/dL Medical - H&P: A/P (1) Altered mental status Current visit: Yes Status: Acute (2) Anemia in ESRD (end-stage renal disease) Current visit: Yes Status: Chronic (3) Influenza B Current visit: Yes Status: Acute (4) Status post insertion of drug-eluting stent into left anterior descending (LAD) artery Current visit: No Status: Chronic (5) CAD (coronary artery disease) Current visit: No Status: Chronic (6) AF (paroxysmal atrial fibrillation) Current visit: No Status: Chronic - Narrative A/P Narrative: Assessment: 1. AMS 2. Sepsis 2nd to pneumonia 3. Community acquired pneumonia 4. Positive for influenza B 5. Chronic systolic and diatolic CHF 6. ESRD on HD with secondary hyperparathyroidsim and chronic anemia 7. DM type 2 8. HTN 9. CAD s/p stenting 10. Paroxysmal atrial fibrillation, s/p AICD placement 11. Thrombocytopenia Plan: 1. admitted to hospital as an inpatient because I feel patient should stay in the hospital for more than 2 midnights 2. Patient has acute encephalopathy. Etiologies unknown. It could be due to sepsis, infection, TIA/stroke, or metabolic causes. CT of the head negative for acute changes. Closely monitor 3. In the ER, 2 L normal saline was given. Patient had ESRD on dialysis. I would not like to give the patient more IV fluid. Blood culture. 1 dose Zosyn was given in the ER. I will treat the pt as community acqured pneumonia with ceftriaxone and azithromycin. But I will order procalcitonin. Sputum culture and MRSA screening. Procalcitonin. 4. In the ER, patient had a positive influenza B screening. I will start pt on Tamiflu and droplet precaution 5. Pt has CHF. Echo on 03/05/19: LVEF 45-50%, Grade II diastolic dysfunction. I will check BNP. Intake and output. Daily weight. I would not like to give lasix now. 6. Patient has end-stage renal disease on dialysis. Nephrology Dr. Brunner is on board. Discussed with Dr. brunner, who will give her a short time (1-2 hrs) of HD since patient has sepsis. 7. For patient's diabetes, we will check A1c. I will hold Lantus unit twice daily. Instead I will have her on insulin ss. I will adjust insulin accordingly 8. Since the patient longer has a hypertension now, I will hold home blood pressure medications carvedilol and amlodipine. Monitor her blood pressure 9. Patient had atrial fibrillation. Heart rate is controlled. Patient is not on AC. I will discuss with patient about AC. 10. Patient has a thrombocytopenia. Monitor her platelets 11. It was reported that patient's cose is DNR/DNI. I will discuss the CODE STATUS with patient and family 12. DVT prophylaxis: Heparin.
[2019-07-09] MEDS: 0.9 % SODIUM CHLORIDE 10 ML SYRINGE IV SCH (15:08)
[2019-07-09] MEDS ORDERED: OSELTAMIVIR PHOSPHATE 30 MG CAPSULE PO ONE ×2 (15:40→19:00)
[2019-07-09] MEDS ORDERED: ALBUTEROL SULFATE 1 PUFF INHALER INH PRN (16:08)
[2019-07-09 16:24] LABS: Estimated Average Glucose(eAG) 232 mg/dL; Hemoglobin A1C 9.7 % HGB (4.0-6.0)
[2019-07-09 16:36] LABS: Thyroid Stimulating Hormone 5.03 uIU/ml (0.27-5.01)
[2019-07-09 16:46] LABS: ALT/SGPT 11 U/l (0-40); AST/SGOT 28 U/l (0-37); Albumin 3.7 gm/dL (3.2-5.2); Albumin/Globulin Ratio 1.4 (1.0-2.3); Alkaline Phosphatase 170 U/L (39-117); Bilirubin,Total 0.6 mg/dL (0.0-1.0); Blood Urea Nitrogen 53 mg/dl (8-23); Calcium 8.3 mg/dl (8.6-10.4); Carbon Dioxide 26 mmol/L (22-30); Chloride 91 mmol/L (96-108); Globulin 2.7 gm/dL (2.2-3.7); Glomerular Filtration Rate 10; Glucose 163 mg/dL (70-105)
[2019-07-09] MEDS: CARVEDILOL 12.5 MG TABLET PO SCH (17:01)
[2019-07-09] MEDS: HYDROcodone/APAP 5/325MG TABLET PO PRN (17:01)
[2019-07-09] MEDS: INSULIN LISPRO 1 UNIT/0.01 ML UNIT SQ SCH ×2 (17:06→21:14)
[2019-07-09] MEDS: SEVELAMER 800 MG TABLET PO SCH (17:06)
[2019-07-09 17:07] LABS: proBNP > 70000.0 pg/ml (0-125)
[2019-07-09] MEDS ORDERED: hydrALAZINE 20 MG/ML VIAL IV PRN (19:07)
[2019-07-09] MEDS: cefTRIAXone 1 GM VIAL IV SCH (19:24)
[2019-07-09] MEDS: AZITHROMYCIN 500 MG in DEXTROSE 5% IN WATER 250 ML IV SCH (19:37)
[2019-07-09] MEDS: cloNIDine HCL 0.1 MG TABLET PO SCH (20:51)
[2019-07-09] MEDS: DOCUSATE SODIUM 100 MG CAPSULE PO SCH (20:51)
[2019-07-09] MEDS: levETIRAcetam 500 MG TABLET PO SCH (20:52)
[2019-07-09] MEDS: HEPARIN 5,000 UNIT/ML VIAL SQ SCH (20:52)
[2019-07-09] MEDS: CAPTOPRIL 12.5 MG TABLET PO SCH (20:52)
[2019-07-09] MEDS ORDERED: SENNOSIDES 1 TABLET PO SCH ×2 (21:00)
[2019-07-09] MEDS ORDERED: DOCUSATE SODIUM 100 MG CAPSULE PO SCH (21:00)
[2019-07-09] MEDS: FUROSEMIDE 20 MG/2 ML VIAL IV SCH (21:15)
[2019-07-09] MEDS: ACETAMINOPHEN 325 MG TABLET PO PRN (21:15)
[2019-07-10] MEDS: HYDROcodone/APAP 5/325MG TABLET PO PRN ×2 (03:57→19:02)
[2019-07-10 06:00] LABS: Hematocrit 34.8 % (36.0-48.0); Hemoglobin 11.1 g/dL (12.0-15.0); Mean Cell Volume 92.3 fL (80.0-100.0); Mean Platelet Volume 8.6 fL (7.4-10.4); Platelet Count 83 K/mcL (140-440); RBC 3.77 M/mcL (4.00-5.20); Red Cell Distribution Width 15.3 % (11.5-14.5); WBC 4.2 K/mcL (4.5-11.0)
[2019-07-10] MEDS: FUROSEMIDE 20 MG/2 ML VIAL IV SCH ×3 (06:04→21:09)
[2019-07-10 06:41] LABS: Band Neutrophils % 8 % (0-10); Lymphocytes % 15 % (15-49); Monocytes % (Manual) 3 % (1-12); Platelet Estimate DECREASED (NORMAL); RBC Fragments OCC (NONE SEEN); RBC Morphology ABNORM (NORMAL); Segmented Neutrophils % 74 % (38-78)
[2019-07-10 06:45] LABS: ALT/SGPT 9 U/l (0-40); AST/SGOT 25 U/l (0-37); Albumin 3.2 gm/dL (3.2-5.2); Albumin/Globulin Ratio 1.2 (1.0-2.3); Alkaline Phosphatase 148 U/L (39-117); Bilirubin,Total 0.4 mg/dL (0.0-1.0); Calcium 8.2 mg/dl (8.6-10.4); Carbon Dioxide 26 mmol/L (22-30); Globulin 2.7 gm/dL (2.2-3.7); Glucose 270 mg/dL (70-105)
[2019-07-10 06:50] LABS: Blood Urea Nitrogen 26 mg/dl (8-23); Chloride 92 mmol/L (96-108); Glomerular Filtration Rate 16
[2019-07-10] MEDS: ACETAMINOPHEN 325 MG TABLET PO PRN ×2 (06:51→19:03)
[2019-07-10] MEDS: PANTOPRAZOLE 40 MG TABLET PO SCH (06:52)
[2019-07-10] MEDS: LEVOTHYROXINE 125 MCG TABLET PO SCH (06:52)
--- NOTE | 2019-07-10 07:05 | Nephrology Progress Note ---
Subjective Patient information: Note initiated : 07/10/19 at 7:02 am Patient: Shanda Rhodes 73 y/o F admitted on 07/09/19 for Altered mental status. Chief Complaint: Shortness of breath Pertinent ROS: Weakness Cough Shortness of breath Pain No confusion Edema Objective - Vital Signs Vital signs: Vital Signs Temp Pulse Pulse Resp BP BP BP 07/10/19 03:45 98.5 F 72 18 135/71 07/09/19 23:07 99.2 F H 60 18 148/61 07/09/19 19:30 98.8 F 60 20 154/63 07/09/19 18:18 99.3 F H 60 154/67 07/09/19 17:49 60 160/74 07/09/19 17:19 85 156/78 07/09/19 16:54 96 H 123/86 07/09/19 16:19 80 129/98 07/09/19 15:53 99.4 F H 60 18 136/73 07/09/19 15:49 67 138/73 07/09/19 15:15 100.3 F H 60 138/63 07/09/19 15:00 99.1 F H 88 18 151/76 07/09/19 14:50 100 F H 74 18 147/67 07/09/19 14:47 18 07/09/19 14:31 74 18 147/67 07/09/19 14:16 80 21 137/60 07/09/19 14:14 59 L 20 144/60 07/09/19 14:01 59 L 22 144/60 07/09/19 13:46 68 24 H 145/94 07/09/19 13:31 61 18 140/65 07/09/19 13:16 67 22 142/73 07/09/19 13:06 60 17 07/09/19 13:01 63 22 137/63 07/09/19 12:46 62 23 H 140/65 07/09/19 12:31 66 20 125/57 07/09/19 12:16 69 20 119/53 07/09/19 12:01 68 23 H 137/62 07/09/19 11:46 59 L 19 125/55 07/09/19 11:31 62 24 H 132/57 07/09/19 11:16 60 25 H 131/60 12/18/19 11:01 60 131/59 18/19 10:46 60 134/52 18/19 10:40 63 20 138/61 12/18/19 10:31 62 20 138/60 18/19 10:16 59 L 20 141/59 18/19 10:01 60 22 138/61 18/19 09:46 60 22 135/58 18/19 09:44 60 22 141/61 18/19 09:31 62 141/61 18/19 09:28 63 142/66 18/19 09:07 19 128/90 07/09/ 08:24 60 21 145/51 07/09/ 08:16 100 F H 62 14 145/81 Pulse Ox 07/10/19 03:45 96 18/19 23:07 100 07/09/19 19:30 92 07/09/19 18:18 07/09/19 17:49 07/09/19 17:19 07/09/19 16:54 07/09/19 16:19 19 15:53 95 18/19 15:49 07/09/19 15:15 07/09/19 15:00 98 07/09/ 14:50 96 18/19 14:47 95 18/19 14:31 96 07/09/19 14:16 94 18/19 14:14 94 07/09/ 14:01 93 18/19 13:46 92 18/19 13:31 93 18/19 13:16 97 18/19 13:06 99 18/19 13:01 99 18/19 12:46 99 18/19 12:31 98 18/19 12:16 98 18/19 12:01 98 18/19 11:46 99 /18/19 11:31 99 /18/19 11:16 99 12/18/19 11:01 99 /18/19 10:46 96 18/19 10:40 95 1218/19 10:31 98 12/18/19 10:16 100 18/19 10:01 97 18/19 09:46 95 18/19 09:44 96 07/09/19 09:31 97 07/09/19 09:28 98 07/09/19 09:07 07/09/19 08:24 93 07/09/19 08:16 88 L Intake and Output 07/09/19 07/10/19 07/10/19 21:59 05:59 13:59 Intake Total 1000 230 Output Total 2300 250 Balance -1300 230 -250 Intake: IV 1000 Sodium Chloride 0.9% 1,000 ml @ 1000 Wide Open IV BOLUS ONE Rx#: [id number] Oral 230 Output: Void Amount 250 Hemodialysis UF 2300 Other: Meal Dinner Percent of Meal Consumed 90% Feeding Ability Independent Urine Appearance Clear Urine Color Dark [place] Weight 132 lb Intake & Output: Intake & Output 07/09/19 07/10/19 07/10/19 21:59 05:59 13:59 Intake Total 1000 230 Output Total 2300 250 Balance -1300 230 -250 Weight 132 lb Intake: IV 1000 Sodium Chloride 0.9% 1,000 ml @ 1000 Wide Open IV BOLUS ONE Rx#: [id number] Oral 230 Output: Void Amount 250 Hemodialysis UF 2300 Other: Meal Dinner Percent of Meal Consumed 90% Feeding Ability Independent Urine Appearance Clear Urine Color Dark [place] - General Appearance General appearance: chronically ill, fatigue EENT: mucous membranes dry Neck: supple Respiratory: clear Cardiology: edema Gastrointestinal: no tenderness Integumentary: warm and dry Neurologic: no focal deficit, alert and oriented x3 Musculoskeletal: no deformities Psychiatric: mood/affect appropriate, cooperative - Lab 07/10/19 04:36 07/10/19 04:35 Most recent lab results Calcium 8.2 mg/dl (8.6-10.4) L 07/10/19 04:35 Magnesium 2.1 mg/dL (1.6-2.5) 07/09/19 15:10 Assessment and Plan (1) End-stage renal disease on hemodialysis Shanda Rhodes is a 73-year-old female with end stage renal disease stage on chronic hemodialysis (on MWF, at [facility]), secondary hyperparathyroidism, chronic anemia due to renal failure, hypertension and diabetes mellitus type 2, coronary artery disease s/p stents, s/p AICD placement, paroxysmal atrial fibrillation, chronic diastolic heart failure (Echo on 03/05/19: LVEF 45-50%, Grade II diastolic dysfunction), presented to ED on 07/09/19 and being admitted. She presented for altered mental status. She has been having flu like symptoms. Her work up was positive for influenza type B and pneumonia. End stage renal disease stage on chronic hemodialysis Chronic anemia due to ESRD Hyponatremia, mild associated with ESRD Plan: Continue hemodialysis MWF. Antibiotic dosage for hemodialysis. Status: Chronic Priority: Medium (2) Hyponatremia Status: Chronic Priority: Medium (3) Anemia in ESRD (end-stage renal disease) Status: Chronic Priority: Medium
[2019-07-10] MEDS: INSULIN LISPRO 1 UNIT/0.01 ML UNIT SQ SCH ×4 (08:15→21:09)
[2019-07-10] MEDS: CAPTOPRIL 12.5 MG TABLET PO SCH ×3 (08:15→21:09)
[2019-07-10] MEDS: SENNOSIDES 1 TABLET PO SCH (08:15)
[2019-07-10] MEDS: SEVELAMER 800 MG TABLET PO SCH ×3 (08:15→18:41)
[2019-07-10] MEDS: AZITHROMYCIN 500 MG in DEXTROSE 5% IN WATER 250 ML IV SCH (08:15)
[2019-07-10] MEDS: HEPARIN 5,000 UNIT/ML VIAL SQ SCH ×2 (08:15→21:09)
[2019-07-10] MEDS: CLOPIDOGREL 75 MG TABLET PO SCH (08:16)
[2019-07-10] MEDS: ATORVASTATIN 40 MG TABLET PO SCH (08:16)
[2019-07-10] MEDS: levETIRAcetam 500 MG TABLET PO SCH ×2 (08:16→21:09)
[2019-07-10] MEDS: DOCUSATE SODIUM 100 MG CAPSULE PO SCH ×2 (08:16→21:17)
[2019-07-10] MEDS: FOLIC ACID/VITAMIN B COMP W-C 1 TAB TABLET PO SCH (08:16)
[2019-07-10] MEDS: cloNIDine HCL 0.1 MG TABLET PO SCH ×2 (08:16→21:08)
[2019-07-10] MEDS: amLODIPine 5 MG TABLET PO SCH (08:16)
[2019-07-10] MEDS: CARVEDILOL 12.5 MG TABLET PO SCH ×2 (08:16→18:41)
[2019-07-10] MEDS: GABAPENTIN 300 MG CAPSULE PO SCH (08:16)
[2019-07-10] MEDS: FLUTICASONE PROPIONATE SPRAY.NAS NS SCH (08:17)
[2019-07-10] MEDS: PRILOCAINE TOPICAL SCH (08:17)
[2019-07-10] MEDS: POLYETHYLENE GLYCOL 3350 17 GM PACKET PO SCH (08:17)
[2019-07-10] MEDS: LIDOCAINE TOPICAL SCH (08:17)
[2019-07-10] MEDS: cefTRIAXone 1 GM VIAL IV SCH (10:13)
[2019-07-10] MEDS ORDERED: OSELTAMIVIR PHOSPHATE 30 MG CAPSULE PO SCH (15:45)
[2019-07-10] MEDS: BENZONATATE 100 MG CAPSULE PO PRN (21:09)
[2019-07-10] MEDS: INSULIN GLARGINE, HUMAN 1 UNIT/0.01 ML SQ SCH (21:10)
[2019-07-10] MEDS: 0.9 % SODIUM CHLORIDE 10 ML SYRINGE IV SCH (21:10)
--- NOTE | 2019-07-10 22:32 | Internal Med Progress Note ---
Medical - PN: Subj Patient information: Note initiated : 07/10/19 at 10:27 pm Service Date, if different from initiated Date: [] Patient: Shanda Rhodes a 73 y/o F admitted on 07/09/19 for Altered mental status. Chief Complaint: [] Ms. Rhodes is a 73 year old F with a history of multiple comorbidities including Chronic systolic and diatolic CHF, ESRD on HD, DM type 2, HTN, CAD s/p stenting, and paroxysmal atrial fibrillation who was brought to the ER due to AMS. Today patient is more alert and can talk. She feels better. Denies fever, ch ills, chest pain, or nausea vomiting. Platelets went down to 83 today formal 102 yesterday Hemoglobin A1c 9.7 BNP > 66075 No overnight events - Constitutional Vitals: Vital Signs Temp Pulse Resp BP Pulse Ox 98.1 F 76 14 128/80 95 07/10/19 18:54 07/10/19 18:54 07/10/19 18:54 07/10/19 18:54 07/10/19 18:54 Period Temp Pulse Resp BP Sys/Courtney Pulse Ox Last 24 Hr 97.3 F-99.2 F 60-76 14-18 128-148/61-80 95-100 Intake and Output 07/10/19 07/10/19 07/11/19 13:59 21:59 05:59 Intake Total 120 600 Output Total 250 Balance -130 600 Weight 61.235 kg Patient Weight 07/11/19 05:59 Weight 61.235 kg Intake & Output: Intake & Output 07/10/19 07/10/19 07/11/19 13:59 21:59 05:59 Intake Total 120 600 Output Total 250 Balance -130 600 Weight 61.235 kg Intake: Oral 120 600 Output: Void Amount 250 Other: Meal Breakfast Percent of Meal Consumed 75% Urine Appearance Clear Urine Color Dark [place] Stool Size Large Copious Stool Color Brown Brown Stool Consistency Loose Liquid Watery Loose # Voids 1 # Bowel Movements 1 # of times incontinent of 1 Bowels General appearance: no acute distress - Head Head exam: Present: atraumatic, normocephalic - Eye Eye exam: Present: EOMI, PERRL - ENT ENT exam: Present: normal exam - Neck Neck exam: Absent: tenderness - Respiratory Respiratory exam: Present: rhonchi - Cardiovascular Cardiovascular exam: Present: normal rate and rhythm. Absent: JVD - GI/Abdominal GI/Abdominal exam: Present: soft. Absent: tenderness - Extremities Exam Extremities exam: Absent: Arthur's sign - Neurological Exam Neurological exam: Present: alert. Absent: motor sensory deficit - Psychiatric Psychiatric exam: Present: normal mood Medical - PN: Obj Da - Labs CBC & Chem 7: 07/10/19 04:36 07/10/19 04:35 Labs: Abnormal Lab Results 07/10/19 07/10/19 07/10/19 04:36 04:35 04:35 WBC 4.2 L RBC 3.77 L Hgb 11.1 L Hct 34.8 L RDW 15.3 H Plt Count 83 L Gran % Lymph % (Auto) Lymph # (Auto) RBC Morphology Abnorm A RBC Fragments Occ A Sodium 132 L Chloride 92 L BUN 26 H Creatinine 2.8 H Glucose 270 H Hemoglobin A1c Calcium 8.2 L Alkaline Phosphatase 148 H Troponin T 0.16 H* NT-Pro-B Natriuret Pep TSH Urine Protein Urine Glucose (UA) Urine Occult Blood Urine RBC Amorphous Crystals Hyaline Casts Granular Casts 07/09/19 07/09/19 07/09/19 15:10 15:10 10:34 WBC RBC Hgb Hct RDW Plt Count Gran % Lymph % (Auto) Lymph # (Auto) RBC Morphology RBC Fragments Sodium 132 L Chloride 91 L BUN 53 H Creatinine 4.2 H Glucose 163 H Hemoglobin A1c 9.7 H Calcium 8.3 L Alkaline Phosphatase 170 H Troponin T 0.17 H* NT-Pro-B Natriuret Pep > 15780.0 H TSH 5.03 H Urine Protein >=500 A Urine Glucose (UA) 150 A Urine Occult Blood Trace A Urine RBC 10 H Amorphous Crystals Few A Hyaline Casts 3 H Granular Casts 3 H 07/09/19 07/09/19 08:35 08:35 WBC RBC 3.96 L Hgb 11.6 L Hct 35.5 L RDW 15.4 H Plt Count 102 L Gran % 84.8 H Lymph % (Auto) 9.0 L Lymph # (Auto) 0.4 L RBC Morphology RBC Fragments Sodium 129 L Chloride 91 L BUN 54 H Creatinine 4.2 H Glucose 219 H Hemoglobin A1c Calcium 8.3 L Alkaline Phosphatase 164 H Troponin T NT-Pro-B Natriuret Pep TSH Urine Protein Urine Glucose (UA) Urine Occult Blood Urine RBC Amorphous Crystals Hyaline Casts Granular Casts Meds: Medications Acetaminophen (Tylenol) 650 mg PO Q4-6HP PRN; Protocol PRN Reason: PAIN/FEVER > 101 Last Admin: 07/10/19 19:03 Dose: 650 mg Documented by: Hydrocodone Bitart/Acetaminophen ([place] 5/325mg) 0.5 - 1 tab PO TIDP PRN; Protocol PRN Reason: Pain Last Admin: 07/10/19 19:02 Dose: 0.5 tab Documented by: Albuterol Sulfate (Ventolin) 1 puff INH Q6HP PRN PRN Reason: shortness of breath or wheezin Amlodipine Besylate (Norvasc) 5 mg PO QDAY [facility] Last Admin: 07/10/19 08:16 Dose: 5 mg Documented by: Atorvastatin Calcium (Lipitor) 80 mg PO DAILY [facility] Last Admin: 07/10/19 08:16 Dose: 80 mg Documented by: Benzonatate (Tessalon) 100 mg PO TIDP PRN PRN Reason: Cough Last Admin: 07/10/19 21:09 Dose: 100 mg Documented by: Captopril (Capoten) 12.5 mg PO TID [facility] Last Admin: 07/10/19 21:09 Dose: 12.5 mg Documented by: [facility] ([facility]) [facility] Last Admin: 07/10/19 18:41 Dose: 12.5 mg Documented by: Clonidine HCl (Catapres) 0.2 mg PO BID [facility] Last Admin: 07/10/19 21:08 Dose: 0.2 mg Documented by: Clopidogrel Bisulfate (Plavix) 75 mg PO DAILY [facility] Last Admin: 07/10/19 08:16 Dose: 75 mg Documented by: Dextrose (Dextrose 50%) 0 ml IV UD PRN PRN Reason: Hypoglycemia Diagnostic Test (Pha) (Accu-Chek) 1 each FS ACHS [facility] Last Admin: 07/10/19 20:56 Dose: 1 each Documented by: Docusate Sodium (Colace) 100 mg PO BID [facility] Last Admin: 07/10/19 21:17 Dose: Not Given Documented by: Fluticasone Propionate (Flonase) 2 spray NS DAILY [facility] Last Admin: 07/10/19 08:17 Dose: Not Given Documented by: Furosemide (Lasix) 20 mg IV Q8 [facility] Last Admin: 07/10/19 21:09 Dose: 20 mg Documented by: Gabapentin (Neurontin) 300 mg PO DAILY [facility] Last Admin: 07/10/19 08:16 Dose: 300 mg Documented by: Glucose (Insta-Glucose) 15 gm PO PRN PRN PRN Reason: Hypoglycemia Glucose (Insta-Glucose) 15 gm PO PRN PRN PRN Reason: Hypoglycemia Heparin Sodium (Porcine) (Heparin) 5,000 unit SQ Q12 [facility] Last Admin: 07/10/19 21:09 Dose: 5,000 unit Documented by: Hydralazine HCl (Apresoline) 10 mg IV Q4-6HP PRN PRN Reason: Hypertension Insulin Glargine (Lantus) 4 unit SQ BID [facility] Last Admin: 07/10/19 21:10 Dose: 4 units Documented by: Insulin Human Lispro (Humalog) 0 unit SQ [facility]; Protocol Last Admin: 07/10/19 21:09 Dose: 6 units Documented by: Levetiracetam (Keppra) 500 mg PO BID [facility] Last Admin: 07/10/19 21:09 Dose: 500 mg Documented by: Levothyroxine Sodium (Synthroid) 125 mcg PO ACB [facility] Last Admin: 07/10/19 06:52 Dose: 125 mcg Documented by: Multivit/Ca Carb/B Cmplx/FA/Prenat (Diatx) 1 tab PO DAILY [facility] Last Admin: 07/10/19 08:16 Dose: 1 tab Documented by: Oseltamivir Phosphate (Tamiflu) 30 mg PO UD [facility] Pantoprazole Sodium (Protonix) 40 mg PO QAMAC [facility] Last Admin: 07/10/19 06:52 Dose: 40 mg Documented by: Lidocaine/Prilocaine [Lidocaine- Prilocaine Cream] 1 dose TOPICAL DAILY [facility] Last Admin: 07/10/19 08:17 Dose: Not Given Documented by: Polyethylene Glycol (Miralax) 17 gm PO DAILY [facility] Last Admin: 07/10/19 08:17 Dose: Not Given Documented by: Senna (Senokot) 2 tab PO DAILY [facility] Last Admin: 07/10/19 08:15 Dose: 2 tab Documented by: Sevelamer Carbonate (Renvela) 800 mg PO TIDCC [facility] Last Admin: 07/10/19 18:41 Dose: 800 mg Documented by: Medical - PN: A/P - Time Spent With Patient Total time spent is greater than 50% in coordination of care (as documented) at patient's floor/unit and/or counseling patient: (1) Altered mental status Status: Acute Current Visit: Yes (2) Anemia in ESRD (end-stage renal disease) Status: Chronic Current Visit: Yes (3) Influenza B Status: Acute Current Visit: Yes (4) Status post insertion of drug-eluting stent into left anterior descending (LAD) artery Status: Chronic Current Visit: No (5) CAD (coronary artery disease) Status: Chronic Current Visit: No (6) AF (paroxysmal atrial fibrillation) Status: Chronic Current Visit: No - Narrative A/P Narrative: Assessment: 1. AMS, improved 2. Sepsis 2nd to pneumonia 3. Community acquired pneumonia, possible 4. Positive for influenza B 5. Chronic systolic and diatolic CHF 6. ESRD on HD with secondary hyperparathyroidsim and chronic anemia 7. DM type 2 8. HTN 9. CAD s/p stenting 10. Paroxysmal atrial fibrillation, s/p AICD placement 11. Thrombocytopenia Plan: 1. Patient has acute encephalopathy. Etiologies unknown. It could be due to sepsis, infection, TIA/stroke, or metabolic causes. CT of the head negative for acute changes. Closely monitor 2. In the ER, 2 L normal saline was given. Patient had ESRD on dialysis. I would not like to give the patient more IV fluid. Blood culture pending. 1 dose Zosyn was given in the ER. Yesterday she was started on ceftriaxone and azithromycin for possible pneumonia. Afebrile, no leukocytosis, procalcitonin negative. Sputum culture and MRSA screening negative. I would like to discontinue ceftriaxone and azithromycin, closely monitor 3. positive influenza B screening. Continue Tamiflu and droplet precaution 4. Pt has CHF. Echo on 03/05/19: LVEF 45-50%, Grade II diastolic dysfunction. BNP > 75330. Intake and output. Daily weight. lasix 20mg iv tid and HD. Repeat echo. 5. Patient has end-stage renal disease on dialysis. Nephrology Dr. Lucero is on board. 6. For patient's diabetes, A1c 9.7. I will hold Lantus unit twice daily. Instead I will have her on insulin ss. I will adjust insulin accordingly 7. Continue patient home blood pressure medication, monitor her blood pressure 8. Patient had atrial fibrillation. Heart rate is controlled. Patient is not on AC. discussed with patient who refused AC because she has hx of bleeding. 9. Patient has thrombocytopenia. Monitor her platelets 10. It was reported that patient's cose is DNR/DNI. I will discuss the CODE STATUS with patient and family 11. DVT prophylaxis: Heparin. Medical - PN: Qual - VTE Deep Vein Thrombosis/Pulmonary Embolism Present on Admission: No
[2019-07-11] MEDS: FUROSEMIDE 20 MG/2 ML VIAL IV SCH ×3 (04:41→22:00)
[2019-07-11] MEDS: 0.9 % SODIUM CHLORIDE 10 ML SYRINGE IV SCH (04:41)
[2019-07-11] MEDS ORDERED: FUROSEMIDE 20 MG/2 ML VIAL IV SCH (06:00)
[2019-07-11 06:26] LABS: Hematocrit 34.5 % (36.0-48.0); Hemoglobin 11.2 g/dL (12.0-15.0); Mean Corpuscular HGB Conc 32.4 g/dL (31.0-36.0); Mean Platelet Volume 8.7 fL (7.4-10.4); Platelet Count 87 K/mcL (140-440); RBC 3.79 M/mcL (4.00-5.20); Red Cell Distribution Width 15.4 % (11.5-14.5); WBC 3.1 K/mcL (4.5-11.0)
[2019-07-11] MEDS: INSULIN LISPRO 1 UNIT/0.01 ML UNIT SQ SCH ×4 (07:04→22:10)
[2019-07-11 07:14] LABS: ALT/SGPT 9 U/l (0-40); AST/SGOT 23 U/l (0-37); Albumin 3.2 gm/dL (3.2-5.2); Albumin/Globulin Ratio 1.2 (1.0-2.3); Alkaline Phosphatase 140 U/L (39-117); Bilirubin,Total 0.3 mg/dL (0.0-1.0); Calcium 8.3 mg/dl (8.6-10.4); Carbon Dioxide 25 mmol/L (22-30); Globulin 2.7 gm/dL (2.2-3.7); Glucose 113 mg/dL (70-105)
--- NOTE | 2019-07-11 07:23 | Nephrology Progress Note ---
Subjective Patient information: Note initiated : 07/11/19 at 7:21 am Patient: Shanda Rhodes 73 y/o F admitted on 07/09/19 for Altered mental status. Chief Complaint: Weakness Pertinent ROS: Weakness Cough Edema Objective - Vital Signs Vital signs: Vital Signs Temp Pulse Resp BP BP Pulse Ox 07/11/19 03:29 98.4 F 60 16 138/70 90 07/10/19 23:23 98.6 F 79 16 136/88 96 07/10/19 18:54 98.1 F 76 14 128/80 95 07/10/19 16:00 97.3 F 71 131/77 95 07/10/19 12:00 98.8 F 72 18 135/71 95 07/10/19 08:00 98.7 F 75 18 143/75 96 Intake and Output 07/10/19 07/11/19 07/11/19 21:59 05:59 13:59 Intake Total 600 Output Total 75 Balance 600 -75 Intake: Oral 600 Output: Void Amount 75 Other: Urine Appearance Clear Urine Color Bright Yellow Stool Size Copious Stool Color Brown Stool Consistency Liquid Watery Loose # Voids 1 # of times incontinent of 1 Bowels Weight 135 lb Intake & Output: Intake & Output 07/10/19 07/11/19 07/11/19 21:59 05:59 13:59 Intake Total 600 Output Total 75 Balance 600 -75 Weight 135 lb Intake: Oral 600 Output: Void Amount 75 Other: Urine Appearance Clear Urine Color Bright Yellow Stool Size Copious Stool Color Brown Stool Consistency Liquid Watery Loose # Voids 1 # of times incontinent of 1 Bowels - General Appearance General appearance: chronically ill, fatigue EENT: mucous membranes moist Neck: supple Respiratory: clear Cardiology: edema Gastrointestinal: no tenderness Integumentary: warm and dry Neurologic: no focal deficit, alert and oriented x3 Musculoskeletal: no deformities Psychiatric: mood/affect appropriate, cooperative - Lab 07/11/19 05:28 07/11/19 05:28 Most recent lab results Calcium 8.3 mg/dl (8.6-10.4) L 07/11/19 05:28 Magnesium 2.1 mg/dL (1.6-2.5) 07/09/19 15:10 Assessment and Plan (1) End-stage renal disease on hemodialysis Shanda Rhodes is a 73-year-old female with end stage renal disease stage on chronic hemodialysis (on MWF, at [facility]), secondary hyperparathyroidism, chronic anemia due to renal failure, hypertension and diabetes mellitus type 2, coronary artery disease s/p stents, s/p AICD placement, paroxysmal atrial fibrillation, chronic diastolic heart failure (Echo on 03/05/19: LVEF 45-50%, Grade II diastolic dysfunction), presented to ED on 07/09/19 and being admitted. She presented for altered mental status. She has been having flu like symptoms. Her work up was positive for influenza type B and pneumonia. End stage renal disease stage on chronic hemodialysis Chronic anemia due to ESRD Hyponatremia, mild associated with ESRD Plan: Hemodialysis today for 4 hours with 3 kg UF. Continue hemodialysis MWF. Antibiotic dosage for hemodialysis. The patient seen and evaluated during hemodialysis. Status: Chronic Priority: Medium (2) Hyponatremia Status: Chronic Priority: Medium (3) Anemia in ESRD (end-stage renal disease) Status: Chronic Priority: Medium
[2019-07-11 07:48] LABS: Band Neutrophils % 10 % (0-10); Eosinophils % (Manual) 3 % (0-7); Lymphocytes % 18 % (15-49); Monocytes % (Manual) 6 % (1-12); Platelet Estimate DECREASED (NORMAL); RBC Morphology NORMAL (NORMAL); Segmented Neutrophils % 63 % (38-78)
[2019-07-11 07:49] LABS: Blood Urea Nitrogen 37 mg/dl (8-23); Chloride 92 mmol/L (96-108); Glomerular Filtration Rate 12
[2019-07-11] MEDS: ACETAMINOPHEN 325 MG TABLET PO PRN (08:05)
[2019-07-11] MEDS: PANTOPRAZOLE 40 MG TABLET PO SCH (08:05)
[2019-07-11] MEDS: LEVOTHYROXINE 125 MCG TABLET PO SCH (08:06)
[2019-07-11] MEDS: SEVELAMER 800 MG TABLET PO SCH ×3 (08:08→18:35)
[2019-07-11] MEDS: CARVEDILOL 12.5 MG TABLET PO SCH ×2 (08:21→18:35)
[2019-07-11] MEDS: DOCUSATE SODIUM 100 MG CAPSULE PO SCH ×2 (09:21→22:01)
[2019-07-11] MEDS: POLYETHYLENE GLYCOL 3350 17 GM PACKET PO SCH (09:21)
[2019-07-11] MEDS: HYDROcodone/APAP 5/325MG TABLET PO PRN (12:24)
[2019-07-11] MEDS: GABAPENTIN 300 MG CAPSULE PO SCH (13:53)
[2019-07-11] MEDS: FOLIC ACID/VITAMIN B COMP W-C 1 TAB TABLET PO SCH (13:53)
[2019-07-11] MEDS: LOPERAMIDE 2 MG CAPSULE PO PRN ×3 (13:54→22:00)
[2019-07-11] MEDS: CLOPIDOGREL 75 MG TABLET PO SCH (13:54)
[2019-07-11] MEDS: cloNIDine HCL 0.1 MG TABLET PO SCH ×2 (13:54→22:00)
[2019-07-11] MEDS: BENZONATATE 100 MG CAPSULE PO PRN (13:54)
[2019-07-11] MEDS: amLODIPine 5 MG TABLET PO SCH (13:54)
[2019-07-11] MEDS: ATORVASTATIN 40 MG TABLET PO SCH (13:55)
[2019-07-11] MEDS: levETIRAcetam 500 MG TABLET PO SCH ×2 (13:55→22:00)
[2019-07-11] MEDS: INSULIN GLARGINE, HUMAN 1 UNIT/0.01 ML SQ SCH ×2 (13:56→22:09)
[2019-07-11] MEDS: FLUTICASONE PROPIONATE SPRAY.NAS NS SCH (14:27)
[2019-07-11] MEDS: HEPARIN 5,000 UNIT/ML VIAL SQ SCH ×2 (14:28→22:01)
[2019-07-11] MEDS: LIDOCAINE TOPICAL SCH (14:29)
[2019-07-11] MEDS: SENNOSIDES 1 TABLET PO SCH (14:29)
[2019-07-11] MEDS: PRILOCAINE TOPICAL SCH (14:29)
--- NOTE | 2019-07-11 21:20 | Internal Med Progress Note ---
Medical - PN: Subj Patient information: Note initiated : 07/11/19 at 9:18 pm Service Date, if different from initiated Date: [] Patient: Shanda Rhodes a 73 y/o F admitted on 07/09/19 for Altered mental status. Chief Complaint: [] Ms. Rhodes is a 73 year old F with a history of multiple comorbidities including Chronic systolic and diatolic CHF, ESRD on HD, DM type 2, HTN, CAD s/p stenting, and paroxysmal atrial fibrillation who was brought to the ER due to AMS. Pt is improved. she does not have new complaints. Denies fever, chills, chest pain, or nausea vomiting. No overnight events - Constitutional Vitals: Vital Signs Temp Pulse Resp BP Pulse Ox 98.6 F 59 L 12 146/80 90 07/11/19 20:00 07/11/19 20:00 07/11/19 20:00 07/11/19 20:00 07/11/19 20:00 Period Temp Pulse Resp BP Sys/Courtney Pulse Ox Last 24 Hr 97.7 F-98.7 F 59-79 12-16 126-174/53-98 90-96 Intake and Output 07/11/19 07/11/19 07/11/19 05:59 13:59 21:59 Intake Total 240 720 Output Total 75 3000 501 Balance -75 -2760 219 Intake & Output: Intake & Output 07/11/19 07/11/19 07/11/19 05:59 13:59 21:59 Intake Total 240 720 Output Total 75 3000 501 Balance -75 -2760 219 Intake: Nourishment/Supplement quantity 240 (ml) Oral 720 Output: Void Amount 75 200 # of times incontinent of urine 1 Stool 300 Hemodialysis UF 3000 Other: Meal Breakfast Lunch Percent of Meal Consumed 100% 100% Feeding Ability Independent Independent Nourishment/Supplement name nupro Urine Appearance Clear Clear Urine Color Bright Yellow Pale Stool Size Moderate Moderate Stool Color Brown Yellow Yellow Stool Consistency Liquid Liquid Watery Loose # Bowel Movements 1 1 # of times incontinent of 2 Bowels General appearance: no acute distress - Head Head exam: Present: normal inspection - Eye Eye exam: Present: EOMI, PERRL - ENT ENT exam: Present: mucous membranes dry - Neck Neck exam: Present: normal inspection - Respiratory Respiratory exam: Present: normal respiratory exam, CTAB - Cardiovascular Cardiovascular exam: Present: normal rate and rhythm - Extremities Exam Extremities exam: Absent: pedal edema - Neurological Exam Neurological exam: Present: alert (No focal neurological deficits) - Psychiatric Psychiatric exam: Present: normal affect Medical - PN: Obj Da - Labs CBC & Chem 7: 07/11/19 05:28 07/11/19 05:28 Labs: Abnormal Lab Results 07/11/19 07/11/19 07/11/19 05:28 05:28 05:28 WBC 3.1 L RBC 3.79 L Hgb 11.2 L Hct 34.5 L RDW 15.4 H Plt Count 87 L Gran % Lymph % (Auto) Lymph # (Auto) RBC Morphology RBC Fragments Sodium Chloride 92 L BUN 37 H Creatinine 3.5 H Glucose 113 H Hemoglobin A1c Calcium 8.3 L Alkaline Phosphatase 140 H Troponin T 0.14 H* NT-Pro-B Natriuret Pep TSH Urine Protein Urine Glucose (UA) Urine Occult Blood Urine RBC Amorphous Crystals Hyaline Casts Granular Casts 07/10/19 07/10/19 07/10/19 04:36 04:35 04:35 WBC 4.2 L RBC 3.77 L Hgb 11.1 L Hct 34.8 L RDW 15.3 H Plt Count 83 L Gran % Lymph % (Auto) Lymph # (Auto) RBC Morphology Abnorm A RBC Fragments Occ A Sodium 132 L Chloride 92 L BUN 26 H Creatinine 2.8 H Glucose 270 H Hemoglobin A1c Calcium 8.2 L Alkaline Phosphatase 148 H Troponin T 0.16 H* NT-Pro-B Natriuret Pep TSH Urine Protein Urine Glucose (UA) Urine Occult Blood Urine RBC Amorphous Crystals Hyaline Casts Granular Casts 07/09/19 07/09/19 07/09/19 15:10 15:10 10:34 WBC RBC Hgb Hct RDW Plt Count Gran % Lymph % (Auto) Lymph # (Auto) RBC Morphology RBC Fragments Sodium 132 L Chloride 91 L BUN 53 H Creatinine 4.2 H Glucose 163 H Hemoglobin A1c 9.7 H Calcium 8.3 L Alkaline Phosphatase 170 H Troponin T 0.17 H* NT-Pro-B Natriuret Pep > 72882.0 H TSH 5.03 H Urine Protein >=500 A Urine Glucose (UA) 150 A Urine Occult Blood Trace A Urine RBC 10 H Amorphous Crystals Few A Hyaline Casts 3 H Granular Casts 3 H 07/09/19 07/09/19 08:35 08:35 WBC RBC 3.96 L Hgb 11.6 L Hct 35.5 L RDW 15.4 H Plt Count 102 L Gran % 84.8 H Lymph % (Auto) 9.0 L Lymph # (Auto) 0.4 L RBC Morphology RBC Fragments Sodium 129 L Chloride 91 L BUN 54 H Creatinine 4.2 H Glucose 219 H Hemoglobin A1c Calcium 8.3 L Alkaline Phosphatase 164 H Troponin T NT-Pro-B Natriuret Pep TSH Urine Protein Urine Glucose (UA) Urine Occult Blood Urine RBC Amorphous Crystals Hyaline Casts Granular Casts Meds: Medications Acetaminophen (Tylenol) 650 mg PO Q4-6HP PRN; Protocol PRN Reason: PAIN/FEVER > 101 Last Admin: 07/11/19 08:05 Dose: 650 mg Documented by: Hydrocodone Bitart/Acetaminophen ([place] 5/325mg) 0.5 - 1 tab PO TIDP PRN; Protocol PRN Reason: Pain Last Admin: 07/11/19 12:24 Dose: 1 tab Documented by: Albuterol Sulfate (Ventolin) 1 puff INH Q6HP PRN PRN Reason: shortness of breath or wheezin Amlodipine Besylate (Norvasc) 5 mg PO QDAY [facility] Last Admin: 07/11/19 13:54 Dose: 5 mg Documented by: Atorvastatin Calcium (Lipitor) 80 mg PO DAILY [facility] Last Admin: 07/11/19 13:55 Dose: 80 mg Documented by: Benzonatate (Tessalon) 100 mg PO TIDP PRN PRN Reason: Cough Last Admin: 07/11/19 13:54 Dose: 100 mg Documented by: [facility]il[facility] ([facility]) [facility] Last Admin: 07/11/19 18:35 Dose: 12.5 mg Documented by: Clonidine HCl (Catapres) 0.2 mg PO BID [facility] Last Admin: 07/11/19 13:54 Dose: 0.2 mg Documented by: Clopidogrel Bisulfate (Plavix) 75 mg PO DAILY [facility] Last Admin: 07/11/19 13:54 Dose: 75 mg Documented by: Dextrose (Dextrose 50%) 0 ml IV UD PRN PRN Reason: Hypoglycemia Diagnostic Test (Pha) (Accu-Chek) 1 each FS ACHS [facility] Last Admin: 07/11/19 17:31 Dose: 1 each Documented by: Docusate Sodium (Colace) 100 mg PO BID [facility] Last Admin: 07/11/19 09:21 Dose: Not Given Documented by: Fluticasone Propionate (Flonase) 2 spray NS DAILY [facility] Last Admin: 07/11/19 14:27 Dose: Not Given Documented by: Furosemide (Lasix) 20 mg IV Q8 [facility] Last Admin: 07/11/19 15:22 Dose: 20 mg Documented by: Gabapentin (Neurontin) 300 mg PO DAILY [facility] Last Admin: 07/11/19 13:53 Dose: 300 mg Documented by: Glucose (Insta-Glucose) 15 gm PO PRN PRN PRN Reason: Hypoglycemia Glucose (Insta-Glucose) 15 gm PO PRN PRN PRN Reason: Hypoglycemia Heparin Sodium (Porcine) (Heparin) 5,000 unit SQ Q12 [facility] Last Admin: 07/11/19 14:28 Dose: Not Given Documented by: Hydralazine HCl (Apresoline) 10 mg IV Q4-6HP PRN PRN Reason: Hypertension Insulin Glargine (Lantus) 4 unit SQ BID [facility] Last Admin: 07/11/19 13:56 Dose: 4 units Documented by: Insulin Human Lispro (Humalog) 0 unit SQ [facility]; Protocol Last Admin: 07/11/19 18:35 Dose: 2 units Documented by: Levetiracetam (Keppra) 500 mg PO BID [facility] Last Admin: 07/11/19 13:55 Dose: 500 mg Documented by: Levothyroxine Sodium (Synthroid) 125 mcg PO ACB [facility] Last Admin: 07/11/19 08:06 Dose: 125 mcg Documented by: Loperamide HCl (Imodium) 2 mg PO PRN PRN PRN Reason: Diarrhea Last Admin: 07/11/19 18:35 Dose: 2 mg Documented by: Multivit/Ca Carb/B Cmplx/FA/Prenat (Diatx) 1 tab PO DAILY [facility] Last Admin: 07/11/19 13:53 Dose: 1 tab Documented by: Oseltamivir Phosphate (Tamiflu) 30 mg PO [facility] Pantoprazole Sodium (Protonix) 40 mg PO QAMAC [facility] Last Admin: 07/11/19 08:05 Dose: 40 mg Documented by: Lidocaine/Prilocaine [Lidocaine- Prilocaine Cream] 1 dose TOPICAL DAILY [facility] Last Admin: 07/11/19 14:29 Dose: Not Given Documented by: Polyethylene Glycol (Miralax) 17 gm PO DAILY [facility] Last Admin: 07/11/19 09:21 Dose: Not Given Documented by: Antoine (Senokot) 2 tab PO DAILY [facility] Last Admin: 07/11/19 14:29 Dose: Not Given Documented by: Sevelamer Carbonate (Renvela) 800 mg PO TIDCC [facility] Last Admin: 07/11/19 18:35 Dose: 800 mg Documented by: Medical - PN: A/P - Time Spent With Patient Total time spent is greater than 50% in coordination of care (as documented) at patient's floor/unit and/or counseling patient: (1) Altered mental status Status: Acute Current Visit: Yes (2) Anemia in ESRD (end-stage renal disease) Status: Chronic Current Visit: Yes (3) Influenza B Status: Acute Current Visit: Yes (4) Status post insertion of drug-eluting stent into left anterior descending (LAD) artery Status: Chronic Current Visit: No (5) CAD (coronary artery disease) Status: Chronic Current Visit: No (6) AF (paroxysmal atrial fibrillation) Status: Chronic Current Visit: No - Narrative A/P Narrative: Assessment: 1. AMS, improved 2. Sepsis 2nd to pneumonia 3. Community acquired pneumonia, possible 4. Positive for influenza B 5. Chronic systolic and diatolic CHF 6. ESRD on HD with secondary hyperparathyroidsim and chronic anemia 7. DM type 2 8. HTN 9. CAD s/p stenting 10. Paroxysmal atrial fibrillation, s/p AICD placement 11. Thrombocytopenia Plan: 1. Patient has acute encephalopathy. Etiologies unknown. It could be due to s epsis, infection, TIA/stroke, or metabolic causes. CT of the head negative for acute changes. Closely monitor 2. Blood culture no growth. Afebrile, no leukocytosis, procalcitonin negative. Sputum culture and MRSA screening negative. discontinued ceftriaxone and azithromycin, closely monitor 3. positive influenza B screening. Continue Tamiflu and droplet precaution 4. Pt has CHF. Echo on 03/05/19: LVEF 45-50%, Grade II diastolic dysfunction. BNP > 51673. Intake and output. Daily weight. lasix 20mg iv tid and HD. Repeat echo. 5. Patient has end-stage renal disease on dialysis. Nephrology Dr. Lucero is on board. 6. For patient's diabetes, A1c 9.7. I will hold Lantus unit twice daily. Instead I will have her on insulin ss. I will adjust insulin accordingly 7. Continue patient home blood pressure medication, monitor her blood pressure 8. Patient had atrial fibrillation. Heart rate is controlled. Patient is not on AC. discussed with patient who refused AC because she has hx of bleeding. 9. Patient has thrombocytopenia. Monitor her platelets 10. It was reported that patient's cose is DNR/DNI. I will discuss the CODE STATUS with patient and family 11. DVT prophylaxis: Heparin. Deposition: SNF - placement, possibly on Sunday Medical - PN: Qual - VTE Deep Vein Thrombosis/Pulmonary Embolism Present on Admission: No
[2019-07-11] MEDS ORDERED: DEXMEDETOMIDINE 400 MCG in PREMIX 1 BAG IV SCH (21:45)
[2019-07-12] MEDS: BENZONATATE 100 MG CAPSULE PO PRN ×3 (04:21→20:56)
[2019-07-12] MEDS: HYDROcodone/APAP 5/325MG TABLET PO PRN ×3 (04:21→20:57)
[2019-07-12] MEDS: FUROSEMIDE 20 MG/2 ML VIAL IV SCH ×3 (06:15→20:48)
[2019-07-12 06:34] LABS: Hematocrit 34.9 % (36.0-48.0); Hemoglobin 11.2 g/dL (12.0-15.0); Mean Cell Volume 90.6 fL (80.0-100.0); Mean Corpuscular HGB Conc 32.2 g/dL (31.0-36.0); Mean Platelet Volume 8.5 fL (7.4-10.4); Platelet Count 94 K/mcL (140-440); RBC 3.86 M/mcL (4.00-5.20); Red Cell Distribution Width 15.4 % (11.5-14.5); WBC 2.7 K/mcL (4.5-11.0)
[2019-07-12] MEDS: LEVOTHYROXINE 125 MCG TABLET PO SCH (07:05)
[2019-07-12] MEDS: PANTOPRAZOLE 40 MG TABLET PO SCH (07:05)
[2019-07-12] MEDS: CARVEDILOL 12.5 MG TABLET PO SCH ×2 (07:05→16:52)
[2019-07-12] MEDS: SEVELAMER 800 MG TABLET PO SCH ×3 (07:05→16:52)
[2019-07-12] MEDS: INSULIN LISPRO 1 UNIT/0.01 ML UNIT SQ SCH ×4 (07:06→20:48)
[2019-07-12 07:51] LABS: Band Neutrophils % 1 % (0-10); Lymphocytes % 19 % (15-49); Monocytes % (Manual) 4 % (1-12); Platelet Estimate DECREASED (NORMAL); RBC Morphology NORMAL (NORMAL); Reactive Lymphocytes 1 % (0-2); Segmented Neutrophils % 75 % (38-78)
--- NOTE | 2019-07-12 08:47 | Nephrology Progress Note ---
Subjective Patient information: Note initiated : 07/12/19 at 8:44 am Patient: Shanda Rhodes 73 y/o F admitted on 07/09/19 for Altered mental status. Chief Complaint: Weakness Pertinent ROS: Weakness Shortness of breath Edema Diarrhea No confusion Objective - Vital Signs Vital signs: Vital Signs Temp Pulse Pulse Resp BP BP BP 07/12/19 07:42 18 07/12/19 04:00 97.4 F 60 16 156/65 07/12/19 00:00 99.4 F H 70 16 154/87 07/11/19 20:00 98.6 F 59 L 12 146/80 07/11/19 13:35 98.1 F 60 155/72 07/11/19 13:06 60 166/98 07/11/19 12:35 60 174/82 07/11/19 12:07 60 167/75 07/11/19 12:00 97.9 F 60 16 167/75 07/11/19 11:35 60 174/77 07/11/19 11:07 67 160/78 07/11/19 10:35 62 133/53 07/11/19 10:05 65 146/71 07/11/19 09:35 97.7 F 60 126/55 Pulse Ox 07/12/19 07:42 94 07/12/19 04:00 94 07/12/19 00:00 92 07/11/19 20:00 90 07/11/19 13:35 07/11/19 13:06 07/11/19 12:35 07/11/19 12:07 07/11/19 12:00 96 07/11/19 11:35 07/11/19 11:07 07/11/19 10:35 07/11/19 10:05 07/11/19 09:35 Intake and Output 07/11/19 07/12/19 07/12/19 21:59 05:59 13:59 Intake Total 720 750 Output Total 501 151 Balance 219 750 -151 Intake: Oral 720 750 Output: Void Amount 200 150 # of times incontinent of urine 1 1 Stool 300 Other: Meal Lunch Percent of Meal Consumed 100% Feeding Ability Independent Urine Appearance Sediment Urine Color Dark Yellow Stool Size Moderate Moderate Stool Color Yellow Yellow Stool Consistency Liquid Liquid # Bowel Movements 1 # of times incontinent of 2 Bowels Weight 130 lb Intake & Output: Intake & Output 07/11/19 07/12/19 07/12/19 21:59 05:59 13:59 Intake Total 720 750 Output Total 501 151 Balance 219 750 -151 Weight 130 lb Intake: Oral 720 750 Output: Void Amount 200 150 # of times incontinent of urine 1 1 Stool 300 Other: Meal Lunch Percent of Meal Consumed 100% Feeding Ability Independent Urine Appearance Sediment Urine Color Dark Yellow Stool Size Moderate Moderate Stool Color Yellow Yellow Stool Consistency Liquid Liquid # Bowel Movements 1 # of times incontinent of 2 Bowels - General Appearance General appearance: chronically ill, fatigue EENT: mucous membranes moist Neck: supple Respiratory: clear Cardiology: edema Gastrointestinal: no tenderness Integumentary: warm and dry Neurologic: no focal deficit, alert and oriented x3 Musculoskeletal: no deformities Psychiatric: mood/affect appropriate, cooperative - Lab 07/12/19 04:40 07/11/19 05:28 Most recent lab results Calcium 8.3 mg/dl (8.6-10.4) L 07/11/19 05:28 Magnesium 2.1 mg/dL (1.6-2.5) 07/09/19 15:10 Assessment and Plan (1) End-stage renal disease on hemodialysis Shanda Rhodes is a 73-year-old female with end stage renal disease stage on chronic hemodialysis (on MWF, at [facility]), secondary hyperparathyroidism, chronic anemia due to renal failure, hypertension and diabetes mellitus type 2, coronary artery disease s/p stents, s/p AICD placement, paroxysmal atrial fibrillation, chronic diastolic heart failure (Echo on 03/05/19: LVEF 45-50%, Grade II diastolic dysfunction), presented to ED on 07/09/19 and being admitted. She presented for altered mental status. She has been having flu like symptoms. Her work up was positive for influenza type B and pneumonia. End stage renal disease stage on chronic hemodialysis Chronic anemia due to ESRD Hyponatremia, mild associated with ESRD Progress: Hemodialysis on 07/10/19 and 07/11/19 for a total of 5.3 kg UF. Diarrhea, C diff negative. Plan: Next hemodialysis tomorrow for 4 hours and 3 kg UF. Antibiotic dosage for hemodialysis. Status: Chronic Priority: Medium (2) Hyponatremia Status: Chronic Priority: Medium (3) Anemia in ESRD (end-stage renal disease) Status: Chronic Priority: Medium
[2019-07-12] MEDS: HEPARIN 5,000 UNIT/ML VIAL SQ SCH ×2 (09:14→20:49)
[2019-07-12] MEDS: POLYETHYLENE GLYCOL 3350 17 GM PACKET PO SCH (09:14)
[2019-07-12] MEDS: INSULIN GLARGINE, HUMAN 1 UNIT/0.01 ML SQ SCH ×2 (09:14→20:48)
[2019-07-12] MEDS: DOCUSATE SODIUM 100 MG CAPSULE PO SCH ×2 (09:17→20:49)
[2019-07-12] MEDS: ATORVASTATIN 40 MG TABLET PO SCH (09:17)
[2019-07-12] MEDS: cloNIDine HCL 0.1 MG TABLET PO SCH ×2 (09:17→20:48)
[2019-07-12] MEDS: GABAPENTIN 300 MG CAPSULE PO SCH (09:18)
[2019-07-12] MEDS: levETIRAcetam 500 MG TABLET PO SCH ×2 (09:19→20:48)
[2019-07-12] MEDS: FLUTICASONE PROPIONATE SPRAY.NAS NS SCH (09:19)
[2019-07-12] MEDS: CLOPIDOGREL 75 MG TABLET PO SCH (09:19)
[2019-07-12] MEDS: amLODIPine 5 MG TABLET PO SCH (09:19)
[2019-07-12] MEDS: FOLIC ACID/VITAMIN B COMP W-C 1 TAB TABLET PO SCH (09:20)
[2019-07-12] MEDS: SENNOSIDES 1 TABLET PO SCH (09:20)
[2019-07-12] MEDS: LIDOCAINE TOPICAL SCH (09:20)
[2019-07-12] MEDS: PRILOCAINE TOPICAL SCH (09:20)
[2019-07-12] MEDS: LOPERAMIDE 2 MG CAPSULE PO PRN ×3 (11:19→20:48)
--- NOTE | 2019-07-12 12:14 | Internal Med Progress Note ---
Medical - PN: Subj Patient information: Note initiated : 07/12/19 at 12:11 pm Service Date, if different from initiated Date: [] Patient: Shanda Rhodes a 73 y/o F admitted on 07/09/19 for Altered mental status. Chief Complaint: [] Ms. Rhodes is a 73 year old F with a history of multiple comorbidities including Chronic systolic and diatolic CHF, ESRD on HD, DM type 2, HTN, CAD s/p stenting, and paroxysmal atrial fibrillation who was brought to the ER due to AMS. Pt complains of watery diarrhea x 2days, many times a day associated with stom ach upset. Denies fever, chills, chest pain, or nausea vomiting. No overnight events - Constitutional Vitals: Vital Signs Temp Pulse Resp BP Pulse Ox 98.4 F 67 18 154/74 97 07/12/19 08:00 07/12/19 08:00 07/12/19 08:00 07/12/19 08:00 07/12/19 08:00 Period Temp Pulse Resp BP Sys/Courtney Pulse Ox Last 24 Hr 97.4 F-99.4 F 59-70 07-09 146-174/65-98 90-97 Intake and Output 07/11/19 07/12/19 07/12/19 21:59 05:59 13:59 Intake Total 720 750 Output Total 501 151 Balance 219 750 -151 Weight 58.967 kg Intake & Output: Intake & Output 07/11/19 07/12/19 07/12/19 21:59 05:59 13:59 Intake Total 720 750 Output Total 501 151 Balance 219 750 -151 Weight 58.967 kg Intake: Oral 720 750 Output: Void Amount 200 150 # of times incontinent of urine 1 1 Stool 300 Other: Meal Lunch Percent of Meal Consumed 100% Feeding Ability Independent Urine Appearance Sediment Urine Color Dark Yellow Stool Size Moderate Moderate Stool Color Yellow Yellow Stool Consistency Liquid Liquid # Bowel Movements 1 # of times incontinent of 2 Bowels General appearance: cooperative - Head Head exam: Present: normal inspection - Eye Eye exam: Present: EOMI, PERRL - ENT ENT exam: Present: mucous membranes moist - Neck Neck exam: Present: normal inspection - Respiratory Respiratory exam: Present: normal respiratory exam, CTAB - Cardiovascular Cardiovascular exam: Present: normal rate and rhythm. Absent: JVD - GI/Abdominal GI/Abdominal exam: Present: normal bowel sounds, soft, tenderness ( mild) - Extremities Exam Extremities exam: Absent: tenderness, Arthur's sign - Neurological Exam Neurological exam: Present: alert. Absent: motor sensory deficit - Psychiatric Psychiatric exam: Present: normal affect - Skin Skin exam: Present: warm Medical - PN: Obj Da - Labs CBC & Chem 7: 07/12/19 04:40 07/11/19 05:28 Labs: Abnormal Lab Results 07/12/19 07/11/19 07/11/19 04:40 05:28 05:28 WBC 2.7 L RBC 3.86 L Hgb 11.2 L Hct 34.9 L RDW 15.4 H Plt Count 94 L RBC Morphology RBC Fragments Sodium Chloride 92 L BUN 37 H Creatinine 3.5 H Glucose 113 H Hemoglobin A1c Calcium 8.3 L Alkaline Phosphatase 140 H Troponin T 0.14 H* NT-Pro-B Natriuret Pep TSH 07/11/19 07/10/19 07/10/19 05:28 04:36 04:35 WBC 3.1 L 4.2 L RBC 3.79 L 3.77 L Hgb 11.2 L 11.1 L Hct 34.5 L 34.8 L RDW 15.4 H 15.3 H Plt Count 87 L 83 L RBC Morphology Abnorm A RBC Fragments Occ A Sodium Chloride BUN Creatinine Glucose Hemoglobin A1c Calcium Alkaline Phosphatase Troponin T 0.16 H* NT-Pro-B Natriuret Pep TSH 07/10/19 07/09/19 07/09/19 04:35 15:10 15:10 WBC RBC Hgb Hct RDW Plt Count RBC Morphology RBC Fragments Sodium 132 L 132 L Chloride 92 L 91 L BUN 26 H 53 H Creatinine 2.8 H 4.2 H Glucose 270 H 163 H Hemoglobin A1c 9.7 H Calcium 8.2 L 8.3 L Alkaline Phosphatase 148 H 170 H Troponin T 0.17 H* NT-Pro-B Natriuret Pep > 93218.0 H TSH 5.03 H Meds: Medications Acetaminophen (Tylenol) 650 mg PO Q4-6HP PRN; Protocol PRN Reason: PAIN/FEVER > 101 Last Admin: 07/11/19 08:05 Dose: 650 mg Documented by: Hydrocodone Bitart/Acetaminophen ([place] 5/325mg) 0.5 - 1 tab PO TIDP PRN; Protocol PRN Reason: Pain Last Admin: 07/12/19 04:21 Dose: 1 tab Documented by: Albuterol Sulfate (Ventolin) 1 puff INH Q6HP PRN PRN Reason: shortness of breath or wheezin Amlodipine Besylate (Norvasc) 5 mg PO QDAY [facility] Last Admin: 07/12/19 09:19 Dose: 5 mg Documented by: Atorvastatin Calcium (Lipitor) 80 mg PO DAILY [facility] Last Admin: 07/12/19 09:17 Dose: 80 mg Documented by: Benzonatate (Tessalon) 100 mg PO TIDP PRN PRN Reason: Cough Last Admin: 07/12/19 04:21 Dose: 100 mg Documented by: Carvedilol (Coreg) 12.5 mg PO BIDCC [facility] Last Admin: 07/12/19 07:05 Dose: 12.5 mg Documented by: Clonidine HCl (Catapres) 0.2 mg PO BID [facility] Last Admin: 07/12/19 09:17 Dose: 0.2 mg Documented by: Clopidogrel Bisulfate (Plavix) 75 mg PO DAILY [facility] Last Admin: 07/12/19 09:19 Dose: 75 mg Documented by: Dextrose (Dextrose 50%) 0 ml IV UD PRN PRN Reason: Hypoglycemia Diagnostic Test (Pha) (Accu-Chek) 1 each FS ACHS [facility] Last Admin: 07/12/19 11:19 Dose: 1 each Documented by: Docusate Sodium (Colace) 100 mg PO BID [facility] Last Admin: 07/12/19 09:17 Dose: Not Given Documented by: Fluticasone Propionate (Flonase) 2 spray NS DAILY [facility] Last Admin: 07/12/19 09:19 Dose: 2 spray Documented by: Furosemide (Lasix) 20 mg IV Q8 [facility] Last Admin: 07/12/19 06:15 Dose: 20 mg Documented by: Gabapentin (Neurontin) 300 mg PO DAILY [facility] Last Admin: 07/12/19 09:18 Dose: 300 mg Documented by: Glucose (Insta-Glucose) 15 gm PO PRN PRN PRN Reason: Hypoglycemia Glucose (Insta-Glucose) 15 gm PO PRN PRN PRN Reason: Hypoglycemia Heparin Sodium (Porcine) (Heparin) 5,000 unit SQ Q12 [facility] Last Admin: 07/12/19 09:14 Dose: 5,000 unit Documented by: Hydralazine HCl (Apresoline) 10 mg IV Q4-6HP PRN PRN Reason: Hypertension Insulin Glargine (Lantus) 4 unit SQ BID [facility] Last Admin: 07/12/19 09:14 Dose: 4 units Documented by: Insulin Human Lispro (Humalog) 0 unit SQ ACHS [facility]; Protocol Last Admin: 07/12/19 11:28 Dose: 3 units Documented by: Levetiracetam (Keppra) 500 mg PO BID [facility] Last Admin: 07/12/19 09:19 Dose: 500 mg Documented by: Levothyroxine Sodium (Synthroid) 125 mcg PO ACB [facility] Last Admin: 07/12/19 07:05 Dose: 125 mcg Documented by: Loperamide HCl (Imodium) 2 mg PO PRN PRN PRN Reason: Diarrhea Last Admin: 07/12/19 11:19 Dose: 2 mg Documented by: Multivit/Ca Carb/B Cmplx/FA/Prenat (Diatx) 1 tab PO DAILY [facility] Last Admin: 07/12/19 09:20 Dose: 1 tab Documented by: Oseltamivir Phosphate (Tamiflu) 30 mg PO UD [facility] Pantoprazole Sodium (Protonix) 40 mg PO QAMAC [facility] Last Admin: 07/12/19 07:05 Dose: 40 mg Documented by: Lidocaine/Prilocaine [Lidocaine- Prilocaine Cream] 1 dose TOPICAL DAILY [facility] Last Admin: 07/12/19 09:20 Dose: 1 dose Documented by: Polyethylene Glycol (Miralax) 17 gm PO DAILY [facility] Last Admin: 07/12/19 09:14 Dose: Not Given Documented by: Senna (Senokot) 2 tab PO DAILY [facility] Last Admin: 07/12/19 09:20 Dose: Not Given Documented by: Sevelamer Carbonate (Renvela) 800 mg PO TIDCC [facility] Last Admin: 07/12/19 11:19 Dose: 800 mg Documented by: Medical - PN: A/P - Time Spent With Patient Total time spent is greater than 50% in coordination of care (as documented) at patient's floor/unit and/or counseling patient: (1) Altered mental status Status: Acute Current Visit: Yes (2) Anemia in ESRD (end-stage renal disease) Status: Chronic Current Visit: Yes (3) Influenza B Status: Acute Current Visit: Yes (4) Status post insertion of drug-eluting stent into left anterior descending (LAD) artery Status: Chronic Current Visit: No (5) CAD (coronary artery disease) Status: Chronic Current Visit: No (6) AF (paroxysmal atrial fibrillation) Status: Chronic Current Visit: No - Narrative A/P Narrative: Assessment: 1. AMS, improved 2. Sepsis 2nd to pneumonia 3. Community acquired pneumonia, possible 4. Positive for influenza B 5. Chronic systolic and diatolic CHF 6. ESRD on HD with secondary hyperparathyroidsim and chronic anemia 7. DM type 2 8. HTN 9. CAD s/p stenting 10. Paroxysmal atrial fibrillation, s/p AICD placement 11. Thrombocytopenia 12. Diarrhea Plan: 1. Patient has acute encephalopathy. Etiologies unknown. significantly improved. CT of the head negative for acute changes. Closely monitor 2. Blood culture no growth. Afebrile, no leukocytosis, procalcitonin negative. Sputum culture and MRSA screening negative. discontinued ceftriaxone and azithromycin, closely monitor 3. positive influenza B screening. Continue Tamiflu and droplet precaution 4. Pt has CHF. Echo on 03/05/19: LVEF 45-50%, Grade II diastolic dysfunction. BNP > 87194. Intake and output. Daily weight. lasix 20mg iv tid and HD. Repeat echo. 5. Patient has end-stage renal disease on dialysis. Nephrology Dr. Lucero is on board. 6. For patient's diabetes, A1c 9.7. I will hold Lantus unit twice daily. Instead I will have her on insulin ss. I will adjust insulin accordingly 7. Continue patient home blood pressure medication, monitor her blood pressure 8. Patient had atrial fibrillation. Heart rate is controlled. Patient is not on AC. discussed with patient who refused AC because she has hx of bleeding. 9. Patient has thrombocytopenia. Plts trending up. Monitor her platelets 10. for diarrhea, C diff and stool study 11. DVT prophylaxis: Heparin. Deposition: SNF - placement, possibly on Sunday Medical - PN: Qual - VTE Deep Vein Thrombosis/Pulmonary Embolism Present on Admission: No
[2019-07-12 15:53] LABS: ALT/SGPT 8 U/l (0-40); AST/SGOT 22 U/l (0-37); Albumin 3.3 gm/dL (3.2-5.2); Albumin/Globulin Ratio 1.2 (1.0-2.3); Alkaline Phosphatase 140 U/L (39-117); Bilirubin,Total 0.5 mg/dL (0.0-1.0); Calcium 8.4 mg/dl (8.6-10.4); Carbon Dioxide 29 mmol/L (22-30); Globulin 2.7 gm/dL (2.2-3.7); Glomerular Filtration Rate 15; Glucose 235 mg/dL (70-105)
--- NOTE | 2019-07-12 16:00 | Internal Med Progress Note ---
Medical - PN: Subj Patient information: Note initiated : 07/12/19 at 3:59 pm Service Date, if different from initiated Date: [] Patient: Shanda Rhodes a 73 y/o F admitted on 07/09/19 for Altered mental status. Chief Complaint: [] Interval history: Ms. Rhodes is a 73 year old F with a history of multiple comorbidities including Chronic systolic and diatolic CHF, ESRD on HD, DM type 2, HTN, CAD s/p stenting, and paroxysmal atrial fibrillation who was brought to the ER due to AMS. Patient is lethargic and confusion. All medical history is obtained from medical chart and ER physician Dr. Sparrow. It was reported that patient is confused and lethargic today. Patient has been having flulike symptoms over the past days. No recent travel or sick contact. In the ER, she was found to have positive influenza B and chest x-ray showed possible pneumonia. She was given 2 L normal saline and 1 dose of Zosyn. When I saw this patient in the ER, she was still lethargic and sleepy. BP was soft. Oxygen saturation > =95 on RM. 07/10 Today patient is more alert and can talk. She feels better. Denies fever, chills, chest pain, or nausea vomiting. Platelets went down to 83 today formal 102 yesterday Hemoglobin A1c 9.7 BNP > 31370 No overnight events 07/11 Pt is improved. she does not have new complaints. Denies fever, chills, chest pain, or nausea vomiting. No overnight events 07/12 Pt complains of watery diarrhea x 2days, many times a day associated with stomach upset. Denies fever, chills, chest pain, or nausea vomiting. No overnight events - Constitutional Vitals: Vital Signs Temp Pulse Resp BP Pulse Ox 98.2 F 70 18 148/76 90 07/12/19 12:00 07/12/19 12:00 07/12/19 12:00 07/12/19 12:00 07/12/19 12:00 Period Temp Pulse Resp BP Sys/Courtney Pulse Ox Last 24 Hr 97.4 F-99.4 F 59-70 12-18 146-156/65-87 90-97 Intake and Output 07/12/19 07/12/19 07/12/19 05:59 13:59 21:59 Intake Total 750 200 Output Total 151 Balance 750 -151 200 Intake & Output: Intake & Output 07/12/19 07/12/19 07/12/19 05:59 13:59 21:59 Intake Total 750 200 Output Total 151 Balance 750 -151 200 Intake: Oral 750 200 Output: Void Amount 150 # of times incontinent of urine 1 Other: Meal Lunch Percent of Meal Consumed 25% Urine Appearance Sediment Urine Color Dark Yellow Stool Size Moderate Stool Color Yellow Stool Consistency Liquid Exam: General: Alert, Awake, No acute Distress Eyes/N/T: EOMI, Head/Neck: neck supple, CV: RRR, No murmurs, Pulm: Clear b/l, no wheezing/rhonchi/rales Abd: soft, mild TTP, +BS x4 Ext: no clubbing/cyanosis/edema Neuro: Alert, no focal deficits, moves all extremities, Skin: warm/dry Medical - PN: Obj Da - Labs CBC & Chem 7: 07/12/19 04:40 07/12/19 14:54 Labs: Abnormal Lab Results 07/12/19 07/12/19 07/11/19 14:54 04:40 05:28 WBC 2.7 L RBC 3.86 L Hgb 11.2 L Hct 34.9 L RDW 15.4 H Plt Count 94 L RBC Morphology RBC Fragments Sodium Chloride BUN Creatinine 3.0 H Glucose 235 H Hemoglobin A1c Calcium 8.4 L Alkaline Phosphatase 140 H Troponin T 0.14 H* NT-Pro-B Natriuret Pep [facility] 07/11/19 07/11/19 07/10/19 05:28 05:28 04:36 WBC 3.1 L 4.2 L RBC 3.79 L 3.77 L Hgb 11.2 L 11.1 L Hct 34.5 L 34.8 L RDW 15.4 H 15.3 H Plt Count 87 L 83 L RBC Morphology Abnorm A RBC Fragments Occ A Sodium Chloride 92 L BUN 37 H Creatinine 3.5 H Glucose 113 H Hemoglobin A1c Calcium 8.3 L Alkaline Phosphatase 140 H Troponin T NT-Pro-B Natriuret Pep TSH 07/10/19 07/10/19 07/09/19 04:35 04:35 15:10 WBC RBC Hgb Hct RDW Plt Count RBC Morphology RBC Fragments Sodium 132 L Chloride 92 L BUN 26 H Creatinine 2.8 H Glucose 270 H Hemoglobin A1c Calcium 8.2 L Alkaline Phosphatase 148 H Troponin T 0.16 H* 0.17 H* NT-Pro-B Natriuret Pep TSH 07/09/19 15:10 WBC RBC Hgb Hct RDW Plt Count RBC Morphology RBC Fragments Sodium 132 L Chloride 91 L BUN 53 H Creatinine 4.2 H Glucose 163 H Hemoglobin A1c 9.7 H Calcium 8.3 L Alkaline Phosphatase 170 H Troponin T NT-Pro-B Natriuret Pep > 23027.0 H TSH 5.03 H Meds: Medications Acetaminophen (Tylenol) 650 mg PO Q4-6HP PRN; Protocol PRN Reason: PAIN/FEVER > 101 Last Admin: 07/11/19 08:05 Dose: 650 mg Documented by: Hydrocodone Bitart/Acetaminophen ([place] 5/325mg) 0.5 - 1 tab PO TIDP PRN; Protocol PRN Reason: Pain Last Admin: 07/12/19 12:27 Dose: 0.5 tab Documented by: Albuterol Sulfate (Ventolin) 1 puff INH Q6HP PRN PRN Reason: shortness of breath or wheezin Amlodipine Besylate (Norvasc) 5 mg PO QDAY [facility] Last Admin: 07/12/19 09:19 Dose: 5 mg Documented by: Atorvastatin Calcium (Lipitor) 80 mg PO DAILY [facility] Last Admin: 07/12/19 09:17 Dose: 80 mg Documented by: Benzonatate (Tessalon) 100 mg PO TIDP PRN PRN Reason: Cough Last Admin: 07/12/19 12:27 Dose: 100 mg Documented by: [facility] Last Admin: 07/12/19 07:05 Dose: 12.5 mg Documented by: Clonidine HCl (Catapres) 0.2 mg PO BID [facility] Last Admin: 07/12/19 09:17 Dose: 0.2 mg Documented by: Clopidogrel Bisulfate (Plavix) 75 mg PO DAILY [facility] Last Admin: 07/12/19 09:19 Dose: 75 mg Documented by: Dextrose (Dextrose 50%) 0 ml IV UD PRN PRN Reason: Hypoglycemia Diagnostic Test (Pha) (Accu-Chek) 1 each FS ACHS [facility] Last Admin: 07/12/19 11:19 Dose: 1 each Documented by: Docusate Sodium (Colace) 100 mg PO BID [facility] Last Admin: 07/12/19 09:17 Dose: Not Given Documented by: Fluticasone Propionate (Flonase) 2 spray NS DAILY [facility] Last Admin: 07/12/19 09:19 Dose: 2 spray Documented by: Furosemide (Lasix) 20 mg IV Q8 [facility] Last Admin: 07/12/19 14:57 Dose: 20 mg Documented by: Gabapentin (Neurontin) 300 mg PO DAILY [facility] Last Admin: 07/12/19 09:18 Dose: 300 mg Documented by: Glucose (Insta-Glucose) 15 gm PO PRN PRN PRN Reason: Hypoglycemia Glucose (Insta-Glucose) 15 gm PO PRN PRN PRN Reason: Hypoglycemia Heparin Sodium (Porcine) (Heparin) 5,000 unit SQ Q12 [facility] Last Admin: 07/12/19 09:14 Dose: 5,000 unit Documented by: Hydralazine HCl (Apresoline) 10 mg IV Q4-6HP PRN PRN Reason: Hypertension Insulin Glargine (Lantus) 4 unit SQ BID [facility] Last Admin: 07/12/19 09:14 Dose: 4 units Documented by: Insulin Human Lispro (Humalog) 0 unit SQ [facility]; Protocol Last Admin: 07/12/19 11:28 Dose: 3 units Documented by: Levetiracetam (Keppra) 500 mg PO BID [facility] Last Admin: 07/12/19 09:19 Dose: 500 mg Documented by: Levothyroxine Sodium (Synthroid) 125 mcg PO ACB [facility] Last Admin: 07/12/19 07:05 Dose: 125 mcg Documented by: Loperamide HCl (Imodium) 2 mg PO PRN PRN PRN Reason: Diarrhea Last Admin: 07/12/19 11:19 Dose: 2 mg Documented by: Multivit/Ca Carb/B Cmplx/FA/Prenat (Diatx) 1 tab PO DAILY [facility] Last Admin: 07/12/19 09:20 Dose: 1 tab Documented by: Oseltamivir Phosphate (Tamiflu) 30 mg PO UD [facility] Pantoprazole Sodium (Protonix) 40 mg PO QAMAC [facility] Last Admin: 07/12/19 07:05 Dose: 40 mg Documented by: Lidocaine/Prilocaine [Lidocaine- Prilocaine Cream] 1 dose TOPICAL DAILY [facility] Last Admin: 12/21/19 09:20 Dose: 1 dose Documented by: Polyethylene Glycol (Miralax) 17 gm PO DAILY [facility] Last Admin: 07/12/19 09:14 Dose: Not Given Documented by: Senna (Senokot) 2 tab PO DAILY [facility] Last Admin: 07/12/19 09:20 Dose: Not Given Documented by: Sevelamer Carbonate (Renvela) 800 mg PO TIDCC [facility] Last Admin: 07/12/19 11:19 Dose: 800 mg Documented by: Medical - PN: A/P - Time Spent With Patient Total time spent is greater than 50% in coordination of care (as documented) at patient's floor/unit and/or counseling patient: - Narrative A/P Narrative: A: *PNA: -BC/SC neg *Sepsis: 2/2 above *Influenza B: *Encephalopathy: 2/2 above superimposed on likely underlying dementia. improved -CT brain neg *h/o chronic systolic/diastolic CHF: h/o noncompliance with HD session recommendations *ESRD: *Anemia, chronic: *CAD w/stent, PPM: *PAF s/p PPM: *Sever Pulm HTN: *DM: *Likely underlying dementia per old notes: *HTN: *Hypothyroidism *Hyponatremia, chronic: *COPD likely based on smoking history and CXR findings: *Diarrhea: c. diff neg P: -Rocephin -T[place] -Nephro following for HD/electrolytes -cont home plavix/statin -BP meds and diuretics per nephro -basal insulin and SSI -ppx: heparin DNR Medical - PN: Qual - VTE Deep Vein Thrombosis/Pulmonary Embolism Present on Admission: No
[2019-07-12 16:05] LABS: Blood Urea Nitrogen 24 mg/dl (8-23); Chloride 93 mmol/L (96-108)
[2019-07-12] MEDS ORDERED: cefTRIAXone 2 GM VIAL ONE (18:01)
[2019-07-12] MEDS: cefTRIAXone 2 GM in DEXTROSE 5% IN WATER 50 ML IV SCH (18:07)
[2019-07-13] MEDS: FUROSEMIDE 20 MG/2 ML VIAL IV SCH (06:08)
[2019-07-13] MEDS: BENZONATATE 100 MG CAPSULE PO PRN ×3 (06:11→22:01)
[2019-07-13 06:16] LABS: Hematocrit 35.8 % (36.0-48.0); Hemoglobin 11.5 g/dL (12.0-15.0); Mean Cell Volume 90.1 fL (80.0-100.0); Mean Corpuscular HGB Conc 32.1 g/dL (31.0-36.0); Platelet Count 106 K/mcL (140-440); RBC 3.97 M/mcL (4.00-5.20); WBC 2.9 K/mcL (4.5-11.0)
[2019-07-13 06:37] LABS: ALT/SGPT 7 U/l (0-40); AST/SGOT 21 U/l (0-37); Albumin 2.9 gm/dL (3.2-5.2); Alkaline Phosphatase 136 U/L (39-117); Bilirubin,Direct < 0.2 mg/dL (0.0-0.3); Bilirubin,Total 0.3 mg/dL (0.0-1.0); Blood Urea Nitrogen 32 mg/dl (8-23); Calcium 8.3 mg/dl (8.6-10.4); Carbon Dioxide 29 mmol/L (22-30); Chloride 92 mmol/L (96-108); Globulin 2.9 gm/dL (2.2-3.7); Glomerular Filtration Rate 12; Glucose 138 mg/dL (70-105); Lactate Dehydrogenase 201 U/L (94-250); Phosphorous 3.4 mg/dL (2.7-4.5); Triglycerides 48 mg/dl (<150); Uric Acid 3.9 mg/dL (2.5-8.0)
--- NOTE | 2019-07-13 07:18 | Nephrology Progress Note ---
Subjective Patient information: Note initiated : 07/13/19 at 7:15 am Patient: Shanda Rhodes 73 y/o F admitted on 07/09/19 for Altered mental status. Chief Complaint: Weakness Pertinent ROS: Weakness Edema Shortness of breath Cough Diarrhea Runny nose Pain Objective - Vital Signs Vital signs: Vital Signs Temp Pulse Resp BP Pulse Ox 07/13/19 04:45 97.9 F 60 18 151/69 98 07/12/19 22:40 98.1 F 62 20 153/68 97 07/12/19 19:40 98.3 F 97 H 20 130/56 97 07/12/19 16:00 98.2 F 69 18 158/73 93 07/12/19 12:00 98.2 F 70 18 148/76 90 07/12/19 08:00 98.4 F 67 18 154/74 97 07/12/19 07:42 18 94 Intake and Output 07/12/19 07/13/19 07/13/19 21:59 05:59 13:59 Intake Total 200 840 Output Total 100 Balance 100 840 Intake: Oral 200 840 Output: Stool 100 Other: Meal Lunch Percent of Meal Consumed 25% Stool Size Moderate Stool Color Yellow Stool Consistency Watery # Bowel Movements 1 # of times incontinent of 1 Bowels Weight 130 lb 8 oz Intake & Output: Intake & Output 07/12/19 07/13/19 07/13/19 21:59 05:59 13:59 Intake Total 200 840 Output Total 100 Balance 100 840 Weight 130 lb 8 oz Intake: Oral 200 840 Output: Stool 100 Other: Meal Lunch Percent of Meal Consumed 25% Stool Size Moderate Stool Color Yellow Stool Consistency Watery # Bowel Movements 1 # of times incontinent of 1 Bowels - General Appearance General appearance: chronically ill, fatigue EENT: mucous membranes dry Neck: supple Respiratory: clear Cardiology: edema Gastrointestinal: no tenderness Integumentary: warm and dry Neurologic: no focal deficit, alert and oriented x3 Musculoskeletal: no deformities Psychiatric: mood/affect appropriate, cooperative - Lab 07/13/19 05:31 07/13/19 05:31 Most recent lab results Calcium 8.3 mg/dl (8.6-10.4) L 07/13/19 05:31 Phosphorus 3.4 mg/dL (2.7-4.5) 07/13/19 05:31 Magnesium 1.8 mg/dL (1.6-2.5) 07/13/19 05:31 Assessment and Plan (1) End-stage renal disease on hemodialysis Shanda Rhodes is a 73-year-old female with end stage renal disease stage on chronic hemodialysis (on MWF, at [facility]), secondary hyperparathyroidism, chronic anemia due to renal failure, hypertension and diabetes mellitus type 2, coronary artery disease s/p stents, s/p AICD placement, paroxysmal atrial fibrillation, chronic diastolic heart failure (Echo on 03/05/19: LVEF 45-50%, Grade II diastolic dysfunction), presented to ED on 07/09/19 and being admitted. She presented for altered mental status. She has been having flu like symptoms. Her work up was positive for influenza type B and pneumonia. End stage renal disease stage on chronic hemodialysis Chronic anemia due to ESRD Hyponatremia, mild associated with ESRD Progress: Hemodialysis on 07/10/19 and 07/11/19 for a total of 5.3 kg UF. Diarrhea, C diff negative. Plan: Hemodialysis today for 4 hours and 3 kg UF. Status: Chronic Priority: Medium (2) Hyponatremia Status: Chronic Priority: Medium (3) Anemia in ESRD (end-stage renal disease) Status: Chronic Priority: Medium
[2019-07-13 07:20] LABS: Anisocytosis FEW (NONE SEEN); Band Neutrophils % 2 % (0-10); Eosinophils % (Manual) 2 % (0-7); Lymphocytes % 23 % (15-49); Monocytes % (Manual) 9 % (1-12); Platelet Estimate DECREASED (NORMAL); RBC Morphology ABNORM (NORMAL); Segmented Neutrophils % 64 % (38-78)
[2019-07-13] MEDS: INSULIN GLARGINE, HUMAN 1 UNIT/0.01 ML SQ SCH ×2 (07:52→22:01)
[2019-07-13] MEDS: PANTOPRAZOLE 40 MG TABLET PO SCH (07:52)
[2019-07-13] MEDS: SEVELAMER 800 MG TABLET PO SCH ×3 (07:52→17:44)
[2019-07-13] MEDS: LEVOTHYROXINE 125 MCG TABLET PO SCH (07:52)
[2019-07-13] MEDS: levETIRAcetam 500 MG TABLET PO SCH ×2 (08:46→22:01)
[2019-07-13] MEDS: amLODIPine 5 MG TABLET PO SCH (08:46)
[2019-07-13] MEDS: GABAPENTIN 300 MG CAPSULE PO SCH (08:46)
[2019-07-13] MEDS: FOLIC ACID/VITAMIN B COMP W-C 1 TAB TABLET PO SCH (08:46)
[2019-07-13] MEDS: INSULIN LISPRO 1 UNIT/0.01 ML UNIT SQ SCH ×4 (08:46→22:02)
[2019-07-13] MEDS: CARVEDILOL 12.5 MG TABLET PO SCH ×2 (08:46→18:07)
[2019-07-13] MEDS: CLOPIDOGREL 75 MG TABLET PO SCH (08:46)
[2019-07-13] MEDS: HEPARIN 5,000 UNIT/ML VIAL SQ SCH ×2 (08:47→22:04)
[2019-07-13] MEDS: cloNIDine HCL 0.1 MG TABLET PO SCH ×2 (08:47→22:01)
[2019-07-13] MEDS: cefTRIAXone 2 GM in DEXTROSE 5% IN WATER 50 ML IV SCH (08:47)
[2019-07-13] MEDS: ATORVASTATIN 40 MG TABLET PO SCH (08:47)
--- NOTE | 2019-07-13 09:07 | Internal Med Progress Note ---
Medical - PN: Subj Patient information: Note initiated : 07/13/19 at 9:02 am Service Date, if different from initiated Date: [] Patient: Shanda Rhodes a 73 y/o F admitted on 07/09/19 for Altered mental status. Chief Complaint: [] Interval history: Ms. Rhodes is a 73 year old F with a history of multiple comorbidities including Chronic systolic and diatolic CHF, ESRD on HD, DM type 2, HTN, CAD s/p stenting, and paroxysmal atrial fibrillation who was brought to the ER due to AMS. Patient is lethargic and confusion. All medical history is obtained from medical chart and ER physician Dr. Sparrow. It was reported that patient is confused and lethargic today. Patient has been having flulike symptoms over the past days. No recent travel or sick contact. In the ER, she was found to have positive influenza B and chest x-ray showed possible pneumonia. She was given 2 L normal saline and 1 dose of Zosyn. When I saw this patient in the ER, she was still lethargic and sleepy. BP was soft. Oxygen saturation > =95 on RM. 07/10 Today patient is more alert and can talk. She feels better. Denies fever, chills, chest pain, or nausea vomiting. Platelets went down to 83 today formal 102 yesterday Hemoglobin A1c 9.7 BNP > 58986 No overnight events 07/11 Pt is improved. she does not have new complaints. Denies fever, chills, chest pain, or nausea vomiting. No overnight events 07/12 Pt complains of watery diarrhea x 2days, many times a day associated with stomach upset. Denies fever, chills, chest pain, or nausea vomiting. No overnight events 07/13 No overnight events. Occasional headache but otherwise no new complaints. Diarrhea. Review of Systems: denies headache/fever/chills/nausea/vomiting/chest or abdominal pain/cough/dyspnea/diarrhea. Otherwise see above. - Constitutional Vitals: Vital Signs Temp Pulse Resp BP Pulse Ox 97.9 F 60 18 151/69 98 07/13/19 04:45 07/13/19 04:45 07/13/19 04:45 07/13/19 04:45 07/13/19 04:45 Period Temp Pulse Resp BP Sys/Courtney Pulse Ox Last 24 Hr 97.9 F-98.3 F 60-97 18-20 130-158/56-76 90-98 Intake and Output 07/12/19 07/13/19 07/13/19 21:59 05:59 13:59 Intake Total 200 840 Output Total 100 Balance 100 840 Weight 59.194 kg Intake & Output: Intake & Output 07/12/19 07/13/19 07/13/19 21:59 05:59 13:59 Intake Total 200 840 Output Total 100 Balance 100 840 Weight 59.194 kg Intake: Oral 200 840 Output: Stool 100 Other: Meal Lunch Percent of Meal Consumed 25% Stool Size Moderate Stool Color Yellow Stool Consistency Watery # Bowel Movements 1 # of times incontinent of 1 Bowels Exam: General: Alert, Awake, No acute Distress Eyes/N/T: EOMI, Head/Neck: neck supple, CV: RRR, No murmurs, Pulm: Diminished b/l, mild b/l exp wheezing Abd: soft, mild TTP, +BS x4 Ext: no clubbing/cyanosis/edema Neuro: Alert, no focal deficits, moves all extremities, Skin: warm/dry Medical - PN: Obj Da - Labs CBC & Chem 7: 07/13/19 05:31 07/13/19 05:31 Labs: Abnormal Lab Results 07/13/19 07/13/19 07/12/19 05:31 05:31 14:54 WBC 2.9 L RBC 3.97 L Hgb 11.5 L Hct 35.8 L RDW 15.0 H Plt Count 106 L RBC Morphology Abnorm A Anisocytosis Few A Sodium 131 L 131 L Chloride 92 L 93 L BUN 32 H 24 H Creatinine 3.6 H 3.0 H Glucose 138 H 235 H Calcium 8.3 L 8.4 L GGT 94 H Alkaline Phosphatase 136 H 140 H Troponin T Total Protein 5.8 L Albumin 2.9 L 07/12/19 07/11/19 07/11/19 04:40 05:28 05:28 WBC 2.7 L RBC 3.86 L Hgb 11.2 L Hct 34.9 L RDW 15.4 H Plt Count 94 L RBC Morphology Anisocytosis Sodium Chloride 92 L BUN 37 H Creatinine 3.5 H Glucose 113 H Calcium 8.3 L GGT Alkaline Phosphatase 140 H Troponin T 0.14 H* Total Protein Albumin 07/11/19 05:28 WBC 3.1 L RBC 3.79 L Hgb 11.2 L Hct 34.5 L RDW 15.4 H Plt Count 87 L RBC Morphology Anisocytosis Sodium Chloride BUN Creatinine Glucose Calcium GGT Alkaline Phosphatase Troponin T Total Protein Albumin Meds: Medications Acetaminophen (Tylenol) 650 mg PO Q4-6HP PRN; Protocol PRN Reason: PAIN/FEVER > 101 Last Admin: 07/11/19 08:05 Dose: 650 mg Documented by: Hydrocodone Bitart/Acetaminophen ([place] 5/325mg) 0.5 - 1 tab PO TIDP PRN; Protocol PRN Reason: Pain Last Admin: 07/12/19 20:57 Dose: 1 tab Documented by: Albuterol Sulfate (Ventolin) 1 puff INH Q6HP PRN PRN Reason: shortness of breath or wheezin Amlodipine Besylate (Norvasc) 5 mg PO QDAY [facility] Last Admin: 07/13/19 08:46 Dose: 5 mg Documented by: Atorvastatin Calcium (Lipitor) 80 mg PO DAILY [facility] Last Admin: 07/13/19 08:47 Dose: 80 mg Documented by: Benzonatate (Tessalon) 100 mg PO TIDP PRN PRN Reason: Cough Last Admin: 07/13/19 06:11 Dose: 100 mg Documented by: [facility]) [facility] Last Admin: 07/13/19 08:46 Dose: 12.5 mg Documented by: Clonidine HCl (Catapres) 0.2 mg PO BID [facility] Last Admin: 07/13/19 08:47 Dose: 0.2 mg Documented by: Clopidogrel Bisulfate (Plavix) 75 mg PO DAILY [facility] Last Admin: 07/13/19 08:46 Dose: 75 mg Documented by: Dextrose (Dextrose 50%) 0 ml IV UD PRN PRN Reason: Hypoglycemia Diagnostic Test (Pha) (Accu-Chek) 1 each FS ACHS [facility] Last Admin: 07/13/19 08:45 Dose: 1 each Documented by: Docusate Sodium (Colace) 100 mg PO BID [facility] Last Admin: 07/12/19 20:49 Dose: Not Given Documented by: Fluticasone Propionate (Flonase) 2 spray NS DAILY [facility] Last Admin: 07/12/19 09:19 Dose: 2 spray Documented by: Furosemide (Lasix) 20 mg IV Q8 [facility] Last Admin: 07/13/19 06:08 Dose: 20 mg Documented by: Gabapentin (Neurontin) 300 mg PO DAILY [facility] Last Admin: 07/13/19 08:46 Dose: 300 mg Documented by: Glucose (Insta-Glucose) 15 gm PO PRN PRN PRN Reason: Hypoglycemia Glucose (Insta-Glucose) 15 gm PO PRN PRN PRN Reason: Hypoglycemia Heparin Sodium (Porcine) (Heparin) 5,000 unit SQ Q12 [facility] Last Admin: 07/13/19 08:47 Dose: 5,000 unit Documented by: Hydralazine HCl (Apresoline) 10 mg IV Q4-6HP PRN PRN Reason: Hypertension Ceftriaxone Sodium 2 gm/ (Dextrose) 50 mls @ 100 mls/hr IV DAILY [facility]; Protocol Last Admin: 07/13/19 08:47 Dose: 100 mls/hr Documented by: Insulin Glargine (Lantus) 4 unit SQ BID [facility] Last Admin: 07/13/19 07:52 Dose: 4 units Documented by: Insulin Human Lispro (Humalog) 0 unit SQ ACHS [facility]; Protocol Last Admin: 07/13/19 08:46 Dose: Not Given Documented by: Levetiracetam (Keppra) 500 mg PO BID [facility] Last Admin: 07/13/19 08:46 Dose: 500 mg Documented by: Levothyroxine Sodium (Synthroid) 125 mcg PO ACB [facility] Last Admin: 07/13/19 07:52 Dose: 125 mcg Documented by: Loperamide HCl (Imodium) 2 mg PO PRN PRN PRN Reason: Diarrhea Last Admin: 07/12/19 20:48 Dose: 2 mg Documented by: Multivit/Ca Carb/B Cmplx/FA/Prenat (Diatx) 1 tab PO DAILY [facility] Last Admin: 07/13/19 08:46 Dose: 1 tab Documented by: Oseltamivir Phosphate (Tamiflu) 30 mg PO UD [facility] Pantoprazole Sodium (Protonix) 40 mg PO QAMAC [facility] Last Admin: 07/13/19 07:52 Dose: 40 mg Documented by: Lidocaine/Prilocaine [Lidocaine- Prilocaine Cream] 1 dose TOPICAL DAILY [facility] Last Admin: 07/12/19 09:20 Dose: 1 dose Documented by: Polyethylene Glycol (Miralax) 17 gm PO DAILY [facility] Last Admin: 07/12/19 09:14 Dose: Not Given Documented by: Senna (Senokot) 2 tab PO DAILY [facility] Last Admin: 07/12/19 09:20 Dose: Not Given Documented by: Sevelamer Carbonate (Renvela) 800 mg PO TIDCC [facility] Last Admin: 07/13/19 07:52 Dose: 800 mg Documented by: Medical - PN: A/P - Time Spent With Patient Total time spent is greater than 50% in coordination of care (as documented) at patient's floor/unit and/or counseling patient: - Narrative A/P Narrative: A: *PNA: -BC/SC neg, PCT improving -on 2L NC with high sats, wean off O2 *Sepsis: 2/2 above, improving *Influenza B(+): *Encephalopathy: 2/2 above superimposed on likely underlying dementia. improved -CT brain neg *acute on chronic chronic systolic/diastolic CHF: h/o noncompliance with HD session recommendations *ESRD: *Anemia, chronic: *CAD w/stent, PPM: *PAF s/p PPM: *Sever Pulm HTN: *DM: *Likely underlying dementia per old notes: *HTN: *Hypothyroidism *Hyponatremia, chronic: *COPD likely based on smoking history and CXR findings: *Diarrhea: c. diff neg P: -Rocephin -Tamiflu -Nephro following for HD/electrolytes -cont home plavix/statin -BP meds and diuretics per nephro -basal insulin and SSI -ppx: heparin DNR Medical - PN: Qual - VTE Deep Vein Thrombosis/Pulmonary Embolism Present on Admission: No
[2019-07-13] MEDS: POLYETHYLENE GLYCOL 3350 17 GM PACKET PO SCH (09:15)
[2019-07-13] MEDS: DOCUSATE SODIUM 100 MG CAPSULE PO SCH ×2 (09:15→22:03)
[2019-07-13] MEDS: SENNOSIDES 1 TABLET PO SCH (09:15)
[2019-07-13] MEDS: ACETAMINOPHEN 325 MG TABLET PO PRN (11:40)
[2019-07-13] MEDS: HYDROcodone/APAP 5/325MG TABLET PO PRN ×2 (11:41→22:01)
--- NOTE | 2019-07-13 12:45 | Discharge Summary ---
Medical - DS: Prov Patient information: Note initiated : 07/13/19 at 12:43 pm Service Date, if different from initiated Date: [] Patient: Shanda Rhodes 73 y/o F admitted on 07/09/19 for Altered mental status. Chief Complaint: [] Date of admission: 07/09/19 14:47 Discharge date: 07/14/19 Primary care physician: Gifty Chisholm Consults: 07/09/19 Consult to Physician [CONS] Stat Comment: Consulting Provider: Britni Rodriguez Reason For Exam: Physician to Consult 07/10/19 12:22 Consult to Physician [CONS] Routine Comment: Consulting Provider: Lex Lucero Reason For Exam: Physician to Consult Medical - DS: Meds - Discharge Medications Prescriptions: Oseltamivir Phosphate [Tamiflu] 30 mg PO Q48 #1 cap Active and Home Medications: Home Medications levETIRAcetam [Levetiracetam] 500 mg PO BID 11/10/16 [History Confirmed 07/09/19 Last Taken 04/26/19] Clopidogrel Bisulfate [Plavix] 75 mg PO DAILY 11/20/16 [History Confirmed 07/09 Last Taken 04/26/19] Acetaminophen [Tylenol] 650 mg PO Q4-6HP PRN #0 tab 11/24/16 [Rx Confirmed 07/10/19 Last Taken 04/26/19] Accu-Chek 1 each FS ACHS strip 09/03/17 [Rx Confirmed 07/09/19 Last Taken 04/25/19] Dextrose [Insta-Glucose] 15 gm PO PRN PRN oral.susp 09/03/17 [Rx Confirmed 07/10/19 Last Taken Unknown] Insulin Lispro [Humalog] See Protocol SQ ACHS unit 09/03/17 [Rx Confirmed 07/09 Last Taken 04/25/19] Insulin Glargine, Human [Lantus] 8 unit SQ BID 01/18/18 [History Confirmed 07/09/19 Last Taken 04/25/19 21:00] Atorvastatin Calcium 80 mg PO DAILY 03/04/19 [History Confirmed 07/09/19 Last Taken 04/26/19] Carvedilol [Coreg] 2 tablet PO BID 03/04/19 [History Confirmed 07/09/19 Last Taken 04/26/19] Gabapentin 600 mg PO TID 03/04/19 [History Confirmed 07/09/19 Last Taken 12/08] Loperamide [Imodium] 2 mg PO BIDP PRN 03/04/19 [History Confirmed 07/09/19 Last Taken 04/16/19] Captopril [Capoten] 12.5 mg PO TID #90 tab 03/09/19 [Rx Confirmed 07/09/19 Last Taken 04/26/19] Benzonatate [Tessalon [place]] 100 mg PO TIDP PRN #20 cap 03/10/19 [Rx Confirmed 07/09/19 Last Taken 04/25/19] Zolpidem [Ambien] 5 mg PO HSP PRN #30 tab 03/10/19 [Rx Confirmed 07/09/19 Last Taken Unknown] albuterol sulfate 90 mcg/actuation aerosol inhaler 1 puff INHALATION Q6H PRN #8 g 04/22/19 [Rx Confirmed 07/09/19 Last Taken 04/26/19] B complex 11-folic acid 1 mg-C 100 mg-biotin 300 mcg-zinc 50 mg tablet 1 tab PO QDAY #90 tab 05/05/19 [Rx Confirmed 07/09/19 Last Taken Unknown] amlodipine 5 mg tablet 5 mg PO QDAY #90 tab 05/19/19 [Rx Confirmed 07/10/19 Last Taken Unknown] Fluticasone Propionate [Flonase Allergy Relief] 2 spray INTRANASAL DAILY 07/09/19 [History Confirmed 07/09/19 Last Taken Unknown] HYDROcodone/APAP 5/325MG [[place] 5-325Mg] 0.5 - 1 tab PO TIDP PRN 07/09/19 [History Confirmed 07/09/19 Last Taken Unknown] Levothyroxine [Synthroid] 125 mcg PO DAILY 07/09/19 [History Confirmed 07/09/19 Last Taken Unknown] Lidocaine/Prilocaine [Lidocaine-Prilocaine Cream] 1 each TP QDAY 07/09/19 [History Confirmed 07/09/19 Last Taken Unknown] Nitroglycerin [Nitrostat] 0.4 mg SL Q5M PRN 07/09/19 [History Confirmed 07/09/19 Last Taken Unknown] Ondansetron [Zofran ODT] 4 mg SL Q8H PRN 07/09/19 [History Confirmed 07/09/19 Last Taken Unknown] Polyethylene Glycol 3350 [Miralax] 17 gm PO DAILY 07/09/19 [History Confirmed 07/09/19 Last Taken Unknown] Polymyxin B Sulf/Trimethoprim [Polytrim Eye Drops] 1 gtt BOTH EYES Q6HP PRN 07/09/19 [History Confirmed 07/09/19 Last Taken Unknown] Sennosides [Senna] 2 tab PO DAILY 07/09/19 [History Confirmed 07/09/19 Last Taken Unknown] Sevelamer Carbonate 800 mg PO TID 07/09/19 [History Confirmed 07/09/19 Last Taken Unknown] cloNIDine HCL [Catapres] 0.2 mg PO BID 07/09/19 [History Confirmed 07/09/19 Last Taken Unknown] Medical - DS: Hosp Hospital Course: Ms. Rhodes is a 73 year old F with a history of multiple comorbidities including Chronic systolic and diatolic CHF, ESRD on HD, DM type 2, HTN, CAD s/p stenting, and paroxysmal atrial fibrillation who was brought to the ER due to AMS. Patient is lethargic and confusion. All medical history is obtained from medical chart and ER physician Dr. Sparrow. It was reported that patient is confused and lethargic today. Patient has been having flulike symptoms over the past days. No recent travel or sick contact. In the ER, she was found to have positive influenza B and chest x-ray showed possible pneumonia. She was given 2 L normal saline and 1 dose of Zosyn. When I saw this patient in the ER, she was still lethargic and sleepy. BP was soft. Oxygen saturation > =95 on RM. 07/10 Today patient is more alert and can talk. She feels better. Denies fever, chills, chest pain, or nausea vomiting. Platelets went down to 83 today formal 102 yesterday Hemoglobin A1c 9.7 BNP > 40639 No overnight events 07/11 Pt is improved. she does not have new complaints. Denies fever, chills, chest pain, or nausea vomiting. No overnight events 07/12 Pt complains of watery diarrhea x 2days, many times a day associated with stomach upset. Denies fever, chills, chest pain, or nausea vomiting. No overnight events 07/13 No overnight events. Occasional headache but otherwise no new complaints. Diarrhea. 07/14 Did well overnight but had a coughing fit this morning. Feeling better currently. Denies dyspnea. Occasional headache Given significant comorbidities, high risk for readmission. Discharge diagnosis: Encephalopathy influenza B heart failure suspected pneumonia sepsis Secondary discharge diagnosis: End-stage renal disease anemia CAD proximal mitral ablation pulmonary pretension diabetes likely underlying dementia hypertension hypothyroidism chronic hyponatremia likely COPD - Time Spent with Patient Total time spent providing and/or coordinating discharge services: Greater than 30 minutes Medical - DS: Exam - Constitutional Vitals: Vital Signs Temp Pulse Resp BP BP Pulse Ox 07/13/19 08:00 97.3 F 62 18 159/79 94 07/13/19 04:45 97.9 F 60 18 151/69 98 07/12/19 22:40 98.1 F 62 20 153/68 97 07/12/19 19:40 98.3 F 97 H 20 130/56 97 07/12/19 16:00 98.2 F 69 18 158/73 93 Intake and Output 07/12/19 07/13/19 07/13/19 21:59 05:59 13:59 Intake Total 200 840 Output Total 100 Balance 100 840 Intake: Oral 200 840 Output: Stool 100 Other: Meal Lunch Percent of Meal Consumed 25% Stool Size Moderate Stool Color Yellow Stool Consistency Watery # Bowel Movements 1 # of times incontinent of 1 Bowels Weight 59.194 kg Medical - DS: Data Labs on day of discharge: Labs from last 24 hours 07/13/19 07/13/19 07/13/19 05:31 05:31 05:31 WBC 2.9 L RBC 3.97 L Hgb 11.5 L Hct 35.8 L MCV 90.1 MCH 28.9 MCHC 32.1 RDW 15.0 H Plt Count 106 L MPV 8.0 Total Counted 100 Seg Neutrophils % 64 Band Neutrophils % 2 Lymphocytes % 23 Monocytes % (Manual) 9 Eosinophils % (Manual) 2 Platelet Estimate Decreased RBC Morphology Abnorm A Anisocytosis Few A Sodium 131 L Potassium 3.5 Chloride 92 L Carbon Dioxide 29 Anion Gap 10.0 BUN 32 H Creatinine 3.6 H GFR Calculation 12 Glucose 138 H Uric Acid 3.9 Calcium 8.3 L Phosphorus 3.4 Magnesium 1.8 Total Bilirubin 0.3 Direct Bilirubin < 0.2 GGT 94 H AST 21 ALT 7 Alkaline Phosphatase 136 H Lactate Dehydrogenase 201 Total Protein 5.8 L Albumin 2.9 L Globulin 2.9 Albumin/Globulin Ratio 1.0 Triglycerides 48 Procalcitonin 0.49 07/12/19 14:54 WBC RBC Hgb Hct MCV MCH MCHC RDW Plt Count MPV Total Counted Seg Neutrophils % Band Neutrophils % Lymphocytes % Monocytes % (Manual) Eosinophils % (Manual) Platelet Estimate RBC Morphology Anisocytosis Sodium 131 L Potassium 3.6 Chloride 93 L Carbon Dioxide 29 Anion Gap 9.0 BUN 24 H Creatinine 3.0 H GFR Calculation 15 Glucose 235 H Uric Acid Calcium 8.4 L Phosphorus Magnesium Total Bilirubin 0.5 Direct Bilirubin GGT AST 22 ALT 8 Alkaline Phosphatase 140 H Lactate Dehydrogenase Total Protein 6.0 Albumin 3.3 Globulin 2.7 Albumin/Globulin Ratio 1.2 Triglycerides Procalcitonin Preliminary micro results at discharge 07/09/19 09:04 Blood Culture - Preliminary Blood 07/09/19 08:48 Blood Culture - Preliminary Blood Medical - DS: A/P - Patient/Caregiver Discharge Instructions Activity: as per physical therapy Diet: Renal/Consistent Carbs Prescriptions: Oseltamivir Phosphate [Tamiflu] 30 mg PO Q48 #1 cap - Follow up Plan Follow up with: Gifty Chisholm ARNP [Primary Care Provider] - Lex Lucero MD [Physician] - Disposition: Xfer SNF Prognosis: Undetermined Rehab Potential: Fair I certify that the patient requires SNF services: Yes Overall status at discharge: patient is progressing back to baseline Medical - DS: Qual - VTE Deep Vein Thrombosis/Pulmonary Embolism Present on Admission: No
[2019-07-13] MEDS: LIDOCAINE TOPICAL SCH (15:18)
[2019-07-13] MEDS: PRILOCAINE TOPICAL SCH (15:18)
[2019-07-13] MEDS: FLUTICASONE PROPIONATE SPRAY.NAS NS SCH (18:06)
[2019-07-14] MEDS: BENZONATATE 100 MG CAPSULE PO PRN (03:08)
[2019-07-14] MEDS: LEVOTHYROXINE 125 MCG TABLET PO SCH (07:19)
[2019-07-14] MEDS: PANTOPRAZOLE 40 MG TABLET PO SCH (07:19)
--- NOTE | 2019-07-14 07:27 | Nephrology Progress Note ---
Subjective Patient information: Note initiated : 07/14/19 at 7:25 am Patient: Shanda Rhodes 73 y/o F admitted on 07/09/19 for Altered mental status. Chief Complaint: Weakness Pertinent ROS: Weakness Shortness of breath Runny nose Diarrhea Objective - Vital Signs Vital signs: Vital Signs Temp Pulse Pulse Resp BP BP BP 07/14/19 03:19 98.7 F 61 20 166/76 07/13/19 23:33 97.5 F 72 16 148/78 07/13/19 19:47 97.6 F 70 22 145/77 07/13/19 16:43 97.5 F 61 101/55 07/13/19 16:33 97.5 F 07/13/19 16:30 97.5 F 60 104/55 07/13/19 16:15 60 83/47 07/13/19 16:00 98.2 F 60 60 18 95/56 90/51 07/13/19 15:45 61 88/36 07/13/19 15:30 60 102/59 07/13/19 15:15 60 90/51 07/13/19 15:00 60 94/55 07/13/19 14:45 60 97/55 07/13/19 14:30 67 98/57 07/13/19 14:14 60 94/54 07/13/19 14:00 60 105/55 07/13/19 13:45 60 86/47 07/13/19 13:30 62 104/52 07/13/19 13:15 60 117/57 07/13/19 13:00 60 120/72 07/13/19 12:42 98.4 F 60 150/71 07/13/19 08:00 97.3 F 62 18 159/79 Pulse Ox 07/14/19 03:19 97 07/13/19 23:33 96 07/13/19 19:47 95 07/13/19 16:43 07/13/19 16:33 07/13/19 16:30 07/13/19 16:15 07/13/19 16:00 97 07/13/19 15:45 07/13/19 15:30 07/13/19 15:15 07/13/19 15:00 07/13/19 14:45 07/13/19 14:30 07/13/19 14:14 07/13/19 14:00 07/13/19 13:45 07/13/19 13:30 07/13/19 13:15 07/13/19 13:00 07/13/19 12:42 07/13/19 08:00 94 Intake and Output 07/13/19 07/14/19 07/14/19 21:59 05:59 13:59 Intake Total 540 Output Total 3001 Balance -3001 540 Intake: Oral 540 Output: Void Amount 200 # of times incontinent of urine 1 Hemodialysis UF 2800 Other: Meal Lunch Percent of Meal Consumed 100% Urine Appearance Clear Urine Color Bright Yellow Urine Odor Normal Weight 122 lb 8 oz Intake & Output: Intake & Output 07/13/19 07/14/19 07/14/19 21:59 05:59 13:59 Intake Total 540 Output Total 3001 Balance -3001 540 Weight 122 lb 8 oz Intake: Oral 540 Output: Void Amount 200 # of times incontinent of urine 1 Hemodialysis UF 2800 Other: Meal Lunch Percent of Meal Consumed 100% Urine Appearance Clear Urine Color Bright Yellow Urine Odor Normal - General Appearance General appearance: chronically ill, fatigue EENT: mucous membranes moist Neck: supple Respiratory: clear Cardiology: no edema Gastrointestinal: no tenderness Integumentary: warm and dry Neurologic: no focal deficit, alert and oriented x3 Musculoskeletal: no deformities Psychiatric: mood/affect appropriate, cooperative - Lab 07/13/19 05:31 07/13/19 05:31 Most recent lab results Calcium 8.3 mg/dl (8.6-10.4) L 07/13/19 05:31 Phosphorus 3.4 mg/dL (2.7-4.5) 07/13/19 05:31 Magnesium 1.8 mg/dL (1.6-2.5) 07/13/19 05:31 Assessment and Plan (1) End-stage renal disease on hemodialysis Shanda Rhodes is a 73-year-old female with end stage renal disease stage on chronic hemodialysis (on MWF, at [facility]), secondary hyperparathyroidism, chronic anemia due to renal failure, hypertension and diabetes mellitus type 2, coronary artery disease s/p stents, s/p AICD placement, paroxysmal atrial fibrillation, chronic diastolic heart failure (Echo on 03/05/19: LVEF 45-50%, Grade II diastolic dysfunction), presented to ED on 07/09/19 and being admitted. She presented for altered mental status. She has been having flu like symptoms. Her work up was positive for influenza type B and pneumonia. End stage renal disease stage on chronic hemodialysis Chronic anemia due to ESRD Hyponatremia, mild associated with ESRD Plan: Next hemodialysis tomorrow as outpatient. Status: Chronic Priority: Medium (2) Hyponatremia Status: Chronic Priority: Medium (3) Anemia in ESRD (end-stage renal disease) Status: Chronic Priority: Medium
[2019-07-14 07:30] LABS: Bilirubin,Direct < 0.2 mg/dL (0.0-0.3); Chloride 96 mmol/L (96-108)
[2019-07-14 07:40] LABS: ALT/SGPT 9 U/l (0-40); AST/SGOT 30 U/l (0-37); Albumin 3.1 gm/dL (3.2-5.2); Albumin/Globulin Ratio 1.1 (1.0-2.3); Alkaline Phosphatase 141 U/L (39-117); Bilirubin,Total 0.4 mg/dL (0.0-1.0); Blood Urea Nitrogen 18 mg/dl (8-23); Calcium 8.5 mg/dl (8.6-10.4); Carbon Dioxide 25 mmol/L (22-30); Globulin 2.8 gm/dL (2.2-3.7); Glomerular Filtration Rate 15; Glucose 187 mg/dL (70-105); Lactate Dehydrogenase 240 U/L (94-250); Phosphorous 2.6 mg/dL (2.7-4.5); Triglycerides 76 mg/dl (<150); Uric Acid 2.6 mg/dL (2.5-8.0)
--- NOTE | 2019-07-14 08:01 | Internal Med Progress Note ---
Medical - PN: Subj Patient information: Note initiated : 07/14/19 at 7:59 am Service Date, if different from initiated Date: [] Patient: Shanda Rhodes a 73 y/o F admitted on 07/09/19 for Altered mental status. Chief Complaint: [] Interval history: Ms. Rhodes is a 73 year old F with a history of multiple comorbidities including Chronic systolic and diatolic CHF, ESRD on HD, DM type 2, HTN, CAD s/p stenting, and paroxysmal atrial fibrillation who was brought to the ER due to AMS. Patient is lethargic and confusion. All medical history is obtained from medical chart and ER physician Dr. Sparrow. It was reported that patient is confused and lethargic today. Patient has been having flulike symptoms over the past days. No recent travel or sick contact. In the ER, she was found to have positive influenza B and chest x-ray showed possible pneumonia. She was given 2 L normal saline and 1 dose of Zosyn. When I saw this patient in the ER, she was still lethargic and sleepy. BP was soft. Oxygen saturation > =95 on RM. 07/10 Today patient is more alert and can talk. She feels better. Denies fever, chills, chest pain, or nausea vomiting. Platelets went down to 83 today formal 102 yesterday Hemoglobin A1c 9.7 BNP > 88069 No overnight events 07/11 Pt is improved. she does not have new complaints. Denies fever, chills, chest pain, or nausea vomiting. No overnight events 07/12 Pt complains of watery diarrhea x 2days, many times a day associated with stomach upset. Denies fever, chills, chest pain, or nausea vomiting. No overnight events 07/13 No overnight events. Occasional headache but otherwise no new complaints. Diarrhea. 07/14 Did well overnight but had a coughing fit this morning. Feeling better currently. Denies dyspnea. Occasional headache Review of Systems: denies headache/fever/chills/nausea/vomiting/chest or abdominal pain//diarrhea. Otherwise see above. - Constitutional Vitals: Vital Signs Temp Pulse Resp BP Pulse Ox 98.7 F 61 20 166/76 97 07/14/19 03:19 07/14/19 03:19 07/14/19 03:19 07/14/19 03:07/14/19 03:19 Period Temp Pulse Resp BP Sys/Courtney Pulse Ox Last 24 Hr 97.3 F-98.7 F 60-72 16- 83-166/36-79 94-97 Intake and Output 07/13/19 07/14/19 07/14/19 21:59 05:59 13:59 Intake Total 540 Output Total 3001 Balance -3001 540 Weight 55.565 kg Intake & Output: Intake & Output 07/13/19 07/14/19 07/14/19 21:59 05:59 13:59 Intake Total 540 Output Total 3001 Balance -3001 540 Weight 55.565 kg Intake: Oral 540 Output: Void Amount 200 # of times incontinent of urine 1 Hemodialysis UF 2800 Other: Meal Lunch Percent of Meal Consumed 100% Urine Appearance Clear Urine Color Bright Yellow Urine Odor Normal Exam: General: Alert, Awake, No acute Distress Eyes/N/T: EOMI, Head/Neck: neck supple, CV: RRR, No murmurs, Pulm: Diminished b/l, mild b/l exp wheezing Abd: soft, +BS x4 Ext: no clubbing/cyanosis/edema Neuro: Alert, no focal deficits, moves all extremities, Skin: warm/dry Medical - PN: Obj Da - Labs CBC & Chem 7: 07/13/19 05:31 07/14/19 05:31 Labs: Abnormal Lab Results 07/14/19 07/13/19 07/13/19 05:31 05:31 05:31 WBC 2.9 L RBC 3.97 L Hgb 11.5 L Hct 35.8 L RDW 15.0 H Plt Count 106 L RBC Morphology Abnorm A Anisocytosis Few A Sodium 131 L Chloride 92 L BUN 32 H Creatinine 2.9 H 3.6 H Glucose 187 H 138 H Calcium 8.5 L 8.3 L Phosphorus 2.6 L GGT 102 H 94 H Alkaline Phosphatase 141 H 136 H Total Protein 5.8 L Albumin 3.1 L 2.9 L 07/12/19 07/12/19 14:54 04:40 WBC 2.7 L RBC 3.86 L Hgb 11.2 L Hct 34.9 L RDW 15.4 H Plt Count 94 L RBC Morphology Anisocytosis Sodium 131 L Chloride 93 L BUN 24 H Creatinine 3.0 H Glucose 235 H Calcium 8.4 L Phosphorus GGT Alkaline Phosphatase 140 H Total Protein Albumin Meds: Medications Acetaminophen (Tylenol) 650 mg PO Q4-6HP PRN; Protocol PRN Reason: PAIN/FEVER > 101 Last Admin: 07/13/19 11:40 Dose: 650 mg Documented by: Hydrocodone Bitart/Acetaminophen (Crockett 5/325mg) 0.5 - 1 tab PO TIDP PRN; Protocol PRN Reason: Pain Last Admin: 07/13/19 22:01 Dose: 1 tab Documented by: Albuterol Sulfate (Ventolin) 1 puff INH Q6HP PRN PRN Reason: shortness of breath or wheezin Amlodipine Besylate (Norvasc) 5 mg PO QDAY REPLACED BY [facility] Last Admin: 07/13/19 08:46 Dose: 5 mg Documented by: Atorvastatin Calcium (Lipitor) 80 mg PO DAILY REPLACED BY [facility] Last Admin: 07/13/19 08:47 Dose: 80 mg Documented by: Benzonatate (Tessalon) 100 mg PO TIDP PRN PRN Reason: Cough Last Admin: 07/14/19 03:08 Dose: 100 mg Documented by: [facility] ([facility]g) [facility] Last Admin: 07/13/19 18:07 Dose: Not Given Documented by: Clonidine HCl (Catapres) 0.2 mg PO BID REPLACED BY [facility] Last Admin: 07/13/19 22:01 Dose: 0.2 mg Documented by: Clopidogrel Bisulfate (Plavix) 75 mg PO DAILY REPLACED BY [facility] Last Admin: 07/13/19 08:46 Dose: 75 mg Documented by: Dextrose (Dextrose 50%) 0 ml IV UD PRN PRN Reason: Hypoglycemia Diagnostic Test (Pha) (Accu-Chek) 1 each FS ACHS REPLACED BY [facility] Last Admin: 07/14/19 07:18 Dose: 1 each Documented by: Docusate Sodium (Colace) 100 mg PO BID REPLACED BY [facility] Last Admin: 07/13/19 22:03 Dose: Not Given Documented by: Fluticasone Propionate (Flonase) 2 spray NS DAILY REPLACED BY [facility] Last Admin: 07/13/19 18:06 Dose: Not Given Documented by: Gabapentin (Neurontin) 300 mg PO DAILY REPLACED BY [facility] Last Admin: 07/13/19 08:46 Dose: 300 mg Documented by: Glucose (Insta-Glucose) 15 gm PO PRN PRN PRN Reason: Hypoglycemia Glucose (Insta-Glucose) 15 gm PO PRN PRN PRN Reason: Hypoglycemia Heparin Sodium (Porcine) (Heparin) 5,000 unit SQ Q12 REPLACED BY [facility] Last Admin: 07/13/19 22:04 Dose: Not Given Documented by: Hydralazine HCl (Apresoline) 10 mg IV Q4-6HP PRN PRN Reason: Hypertension Ceftriaxone Sodium 2 gm/ (Dextrose) 50 mls @ 100 mls/hr IV DAILY REPLACED BY [facility]; Protocol Last Admin: 07/13/19 08:47 Dose: 100 mls/hr Documented by: Insulin Glargine (Lantus) 4 unit SQ BID REPLACED BY [facility] Last Admin: 07/13/19 22:01 Dose: 4 units Documented by: Insulin Human Lispro (Humalog) 0 unit SQ ACHS REPLACED BY [facility]; Protocol Last Admin: 07/13/19 22:02 Dose: 1 units Documented by: Levetiracetam (Keppra) 500 mg PO BID REPLACED BY [facility] Last Admin: 07/13/19 22:01 Dose: 500 mg Documented by: Levothyroxine Sodium (Synthroid) 125 mcg PO ACB REPLACED BY [facility] Last Admin: 07/14/19 07:19 Dose: 125 mcg Documented by: Loperamide HCl (Imodium) 2 mg PO PRN PRN PRN Reason: Diarrhea Last Admin: 07/12/19 20:48 Dose: 2 mg Documented by: Multivit/Ca Carb/B Cmplx/FA/Prenat (Diatx) 1 tab PO DAILY REPLACED BY [facility] Last Admin: 07/13/19 08:46 Dose: 1 tab Documented by: Oseltamivir Phosphate (Tamiflu) 30 mg PO UD REPLACED BY [facility] Pantoprazole Sodium (Protonix) 40 mg PO QAMAC REPLACED BY [facility] Last Admin: 07/14/19 07:19 Dose: 40 mg Documented by: Lidocaine/Prilocaine [Lidocaine- Prilocaine Cream] 1 dose TOPICAL DAILY REPLACED BY [facility] Last Admin: 07/13/19 15:18 Dose: Not Given Documented by: Polyethylene Glycol (Miralax) 17 gm PO DAILY REPLACED BY [facility] Last Admin: 07/13/19 09:15 Dose: Not Given Documented by: Senna (Senokot) 2 tab PO DAILY REPLACED BY [facility] Last Admin: 07/13/19 09:15 Dose: Not Given Documented by: Sevelamer Carbonate (Renvela) 800 mg PO TIDCC REPLACED BY [facility] Last Admin: 07/13/19 17:44 Dose: 800 mg Documented by: Medical - PN: A/P - Time Spent With Patient Total time spent is greater than 50% in coordination of care (as documented) at patient's floor/unit and/or counseling patient: - Narrative A/P Narrative: A: *PNA: -BC/SC neg, PCT improving -on baseline o2 requirement *Sepsis: 2/2 above, improving *Influenza B(+): *Encephalopathy: 2/2 above superimposed on likely underlying dementia. improved -CT brain neg *acute on chronic chronic systolic/diastolic CHF: h/o noncompliance with HD session recommendations *ESRD: *Anemia, chronic: *CAD w/stent, PPM: *PAF s/p PPM: *Sever Pulm HTN: *DM: *Likely underlying dementia per old notes: *HTN: *Hypothyroidism *Hyponatremia, chronic: *COPD (1.5L NC @home): *Diarrhea: c. diff neg P: -Rocephin -Tamiflu -Nephro following for HD/electrolytes -cont home plavix/statin -BP meds and diuretics per nephro -basal insulin and SSI -ppx: heparin DNR Medical - PN: Qual - VTE Deep Vein Thrombosis/Pulmonary Embolism Present on Admission: No
[2019-07-14] MEDS: INSULIN LISPRO 1 UNIT/0.01 ML UNIT SQ SCH ×2 (08:04→13:24)
[2019-07-14] MEDS: CLOPIDOGREL 75 MG TABLET PO SCH (08:04)
[2019-07-14] MEDS: INSULIN GLARGINE, HUMAN 1 UNIT/0.01 ML SQ SCH (08:04)
[2019-07-14] MEDS: FOLIC ACID/VITAMIN B COMP W-C 1 TAB TABLET PO SCH (08:05)
[2019-07-14] MEDS: levETIRAcetam 500 MG TABLET PO SCH (08:05)
[2019-07-14] MEDS: CARVEDILOL 12.5 MG TABLET PO SCH (08:05)
[2019-07-14] MEDS: GABAPENTIN 300 MG CAPSULE PO SCH (08:05)
[2019-07-14] MEDS: cloNIDine HCL 0.1 MG TABLET PO SCH (08:05)
[2019-07-14] MEDS: amLODIPine 5 MG TABLET PO SCH (08:06)
[2019-07-14] MEDS: ATORVASTATIN 40 MG TABLET PO SCH (08:06)
[2019-07-14] MEDS: SEVELAMER 800 MG TABLET PO SCH ×2 (08:06→13:24)
[2019-07-14] MEDS: POLYETHYLENE GLYCOL 3350 17 GM PACKET PO SCH (08:11)
[2019-07-14] MEDS: DOCUSATE SODIUM 100 MG CAPSULE PO SCH (08:11)
[2019-07-14] MEDS: ACETAMINOPHEN 325 MG TABLET PO PRN (08:13)
[2019-07-14] MEDS: HEPARIN 5,000 UNIT/ML VIAL SQ SCH (08:53)
[2019-07-14] MEDS: SENNOSIDES 1 TABLET PO SCH (10:22)
[2019-07-14] MEDS: cefTRIAXone 2 GM in DEXTROSE 5% IN WATER 50 ML IV SCH (10:53)
[2019-07-14] MEDS: LIDOCAINE TOPICAL SCH (10:54)
[2019-07-14] MEDS: PRILOCAINE TOPICAL SCH (10:54)
[2019-07-14] MEDS: FLUTICASONE PROPIONATE SPRAY.NAS NS SCH (10:55)
[2019-07-14 14:16] LABS: Appearance,Urine CLOUDY; Bacteria,Urine 0 /hpf (0); Bilirubin,Urine NEG (NEG); Color,Urine AMBER; Culture Indicated,Urine NO; Glucose,Urine (UA) 50 mg/dL (NEG); Ketones,Urine NEG (NEG); Leukocyte Esterase,Urine NEG /uL (NEG); Mucus,Urine MOD /hpf (0); Nitrate,Urine NEG (NEG); Protein,Urine >=500 mg/dL (NEG); Specific Gravity,Urine 1.018 (1.000-1.035); Urine Amorphous Crystals FEW /hpf (0); Urine Blood NEG mg/dL (<0.03); Urine Hyaline Cast 41 /lpf (0-2); Urine RBC 13 /hpf (0-1); Urine Squamous Epithelial Cell 7 /hpf (0-4); Urine Transitional Epi Cells 2 /hpf (0-2); Urine WBC 36 /hpf (0-4); Urobilinogen,Urine NEG (NEG)
== END 2019-07-14 15:10 | DRG 865 ==
LOC: ED 08:14 → MEDSUR 14:47
PROVIDERS: ADMIT Internal Medicine; ATTEND Internal Medicine

== ENCOUNTER 2019-07-26 20:25 | Inpatient (IN) ==
[2019-07-26] MEDS ORDERED: MIDAZOLAM 2 MG/2 ML VIAL IV ONE (20:38)
[2019-07-26] MEDS ORDERED: levETIRAcetam 1,000 MG in 0.9 % SODIUM CHLORIDE 100 ML IV ONE (20:41)
[2019-07-26] MEDS ORDERED: 0.9 % SODIUM CHLORIDE 500 ML IV SCH (20:45)
--- NOTE | 2019-07-26 20:45 | Emergency Department Note ---
Abdominal Pain HPI - General Chief Complaint: Abdominal Pain Stated Complaint: abd. pain wirh syncopy episode Time Seen by Provider: 07/26/19 20:36 Mode of arrival: EMS - History of Present Illness HPI Narrative: [facility] secondary to abdominal pain that was very severe and excruciating for several hours. The. She had not had a bowel movement in 3 days and thus they tried an enema. She then did produce a very large stool but then experienced loss of consciousness, was described as a vagal episode, but then she did have loss of consciousness. In the ambulance as well as. They did witness some drooling, unresponsive condition for several minutes and when she arrived in the emergency department. She was initially unresponsive, responding again after a few minutes of Trendelenburg. Notably, her blood sugars reported as being a low in the [facility] and she was given glucose, total of 25 g of D10. She is on dialysis. Recently was in hospital for pneumonia as well as influenza. Was sent to the [facility] to recover from these 2 illnesses, she is currently receiving dialysis 3 times a week. While in the ED and while she was getting stabilized. We did notice tonic-clonic seizure-like activity of the left arm. Her head was also told to to the side and she was unconscious, he eyes rolled in the back of her head. Within a few seconds. She regained consc iousness and is now following some simple commands. She does have a DNR order, daughter is power of claims attorney and wishes to have everything done short of CPR and ventilator placement. MD Complaint: abdominal pain - Related Data Home Medications Medication Instructions Recorded Confirmed levETIRAcetam [Levetiracetam] 500 mg PO BID 11/10/16 07/09/19 Clopidogrel Bisulfate [Plavix] 75 mg PO DAILY 11/20/16 07/09/19 Insulin Glargine, Human [Lantus] 8 unit SQ BID 01/18/18 07/09/19 Atorvastatin Calcium 80 mg PO DAILY 03/04/19 07/09/19 Carvedilol [Coreg] 2 tablet PO BID 03/04/19 07/09/19 Gabapentin 600 mg PO TID 03/04/19 07/09/19 Loperamide [Imodium] 2 mg PO BIDP PRN 03/04/19 07/09/19 Fluticasone Propionate [Flonase 2 spray INTRANASAL DAILY 07/09/19 07/09/19 Allergy Relief] HYDROcodone/APAP 5/325MG [Chester 0.5 - 1 tab PO TIDP PRN 07/09/19 07/09/19 5-325Mg] Levothyroxine [Synthroid] 125 mcg PO DAILY 07/09/19 07/09/19 Lidocaine/Prilocaine 1 each TP QDAY 07/09/19 07/09/19 [Lidocaine-Prilocaine Cream] Nitroglycerin [Nitrostat] 0.4 mg SL Q5M PRN 07/09/19 07/09/19 Ondansetron [Zofran ODT] 4 mg SL Q8H PRN 07/09/19 07/09/19 Polyethylene Glycol 3350 [Miralax] 17 gm PO DAILY 07/09/19 07/09/19 Polymyxin B Sulf/Trimethoprim 1 gtt BOTH EYES Q6HP PRN 07/09/19 07/09/19 [Polytrim Eye Drops] Sennosides [Senna] 2 tab PO DAILY 07/09/19 07/09/19 Sevelamer Carbonate 800 mg PO TID 07/09/19 07/09/19 cloNIDine HCL [Catapres] 0.2 mg PO BID 07/09/19 07/09/19 Previous Rx's Medication Instructions Recorded Acetaminophen [Tylenol] 650 mg PO Q4-6HP PRN #0 tab 11/24/16 Accu-Chek 1 each FS ACHS strip 09/03/17 Dextrose [Insta-Glucose] 15 gm PO PRN PRN oral.susp 09/03/17 Insulin Lispro [Humalog] See Protocol SQ ACHS unit 09/03/17 Captopril [Capoten] 12.5 mg PO TID #90 tab 03/09/19 Benzonatate [Tessalon Perle] 100 mg PO TIDP PRN #20 cap 03/10/19 Zolpidem [Ambien] 5 mg PO HSP PRN #30 tab 03/10/19 albuterol sulfate 90 mcg/actuation 1 puff INHALATION Q6H PRN #8 g 04/22/19 aerosol inhaler B complex 11-folic acid 1 mg-C 100 1 tab PO QDAY #90 tab 10/14/19 mg-biotin 300 mcg-zinc 50 mg tablet amlodipine 5 mg tablet 5 mg PO QDAY #90 tab 05/19/19 Oseltamivir Phosphate [Tamiflu] 30 mg PO Q48 #1 cap 07/13/19 HYDROcodone/APAP 5/325MG [Chester 0.5 - 1 tab PO Q4HP PRN #20 tab 07/14/19 5-325Mg] Allergies Allergy/AdvReac Type Severity Reaction Status Date / Time lactose AdvReac Mild Diarrhea Verified 07/10/19 08:09 Review of Systems Limitations: ROS unobtainable due to patients medical condition Abdominal Pain PMH - Past Medical History [facility] Narrative: Old records reviewed Medical history: Reports: atrial fibrillation, CAD (coronary artery disease), CHF, chronic narcotics, CVA, dementia, DM (With neuropathy), hyperlipidemia, hypertension, myocardial infarction, pneumonia, renal disease (On dialysis), seizures, thyroid disease, other (pacemaker) Surgical history ED: Reports: vascular surgery Psychiatric history: Reports: no psych history ENVIRONMENTAL ASSOCIATE history: Reports: non-contributory Family history: Reports: non-contributory - Social History Smoking status: Never smoker Alcohol use: Reports: Occasionally Drug use: Reports: none. Denies: marijuana Physical Exam Limitations: altered mental status General appearance: lethargic, obtunded Head: atraumatic, normocephalic, other (normal. Facial color) Eye: Present: other (eyes deviated to the right) ENT: Present: mucous membranes moist, TM's normal bilaterally Neck: Present: normal inspection, trachea midline. Absent: meningismus Chest: Present: symmetric chest wall rise Respiratory: Present: decreased breath sounds. Absent: wheezes Cardiovascular: Present: regular rate, other (paced rhythm 100%) Abdominal: Present: soft. Absent: distention, tenderness, guarding, rebound Extremities: Present: other (fistula to the right upper arm) Back: Present: normal inspection Neurological: Present: motor sensory deficit Psychiatric: Present: poor eye contact, other (obtunded) Skin: Present: warm, diaphoretic, normal color Course - Reevaluation(s) Reevaluation #1: Patient was resuscitated in the emergency department. It. Initially given fluids. Her blood pressure did normalize. The. Heart rate initially was in the 90s when she was agitated. The. She was 100% paced. The entire time. Heart rate came down to the 60s. Platelets in doing an EKG as she is 100% paced. We did do a troponin and it was 0.1, which is normal for her as she is chronically elevated. In fact, we opted previous troponins and a been normal. Hospital admission, discussed with Dr. Barnes as well as the in service education teacher. Initial orders written. Final diagnosis is #1. Hyponatremia. #2. Seizure disorder. The daughter suspects that they have not been given her Lamictal at the [facility]. This may very well have contributed to her seizure disorder, Vital Signs Pulse Rate 75 07/26/19 20:27 Respiratory Rate 19 07/26/19 20:27 Blood Pressure 136/66 07/26/19 20:27 Pulse Oximetry (%) 98 07/26/19 20:27 Pulse Rate 65 07/26/19 21:47 Respiratory Rate 16 07/26/19 21:47 Blood Pressure 124/58 07/26/19 21:47 Pulse Oximetry (%) 98 07/26/19 21:47 Abdominal Pain - [facility] Narrative Medical decision making narrative: Final diagnosis is hyponatremia. Seizure activity on Keppra. We did order a Keppra level off of the blood that was collected but this is a send out and may take a day or 2 to come back. - Lab Data Lab results reviewed: Yes I reviewed the patient's lab results. Result diagrams: 07/26/19 20:48 07/26/19 20:48 Lab Results 07/26/19 07/26/19 07/26/19 Range/Units 20:48 20:48 20:48 WBC 6.3 (4.50-11.00) K/mcL RBC 3.52 L (3.59-5.38) M/mcL Hgb 10.1 L (11.2-15.7) g/dL Hct 31.3 L (34.1-44.9) % POC Hct 32.0 L (36.0-48.0) % MCV 88.9 (80.0-100.0) fL MCH 28.7 (26.0-34.0) pg MCHC 32.3 (31.0-36.0) g/dL RDW 14.6 H (11.5-14.5) % Plt Count 179 (140-440) K/mcL MPV 9.9 (7.4-10.4) fL Gran % 77.9 (38.0-78.0) % Lymph % (Auto) 9.6 L (15.5-49.0) % Bacon % (Auto) 7.6 (1.0-12.0) % Eos % (Auto) 3.5 (0.0-7.0) % Baso % (Auto) 1.4 (0.0-2.0) % Gran # 4.89 (1.80-8.00) K/mcL Lymph # (Auto) 0.60 L (1.50-4.80) K/mcL Bacon # (Auto) 0.48 (0.10-0.90) K/mcL Eos # (Auto) 0.22 (0.00-0.70) K/mcL Baso # (Auto) 0.09 (0.00-0.30) K/mcL POC PT 14.1 (11.9-14.5) sec POC INR 1.2 (0.9-1.2) VBG Lactic Acid (0.5-2.0) mmol/L POC Sodium 125 L (133-145) mmol/L Sodium 122 L (133-145) mmol/L POC Potassium 4.3 (3.3-5.1) mmol/L Potassium 4.2 (3.3-5.1) mmol/L POC Chloride 89 L (96-108) mmol/L Chloride 85 L (96-108) mmol/L Carbon Dioxide 23 (22-30) mmol/L POC Total CO2 27 (22-30) mmol/L Anion Gap 14.0 (8-16) POC BUN 39 H (8-23) mg/dl BUN 43 H (8-23) mg/dl Creatinine 3.5 H (0.6-1.1) mg/dl POC Creatinine 3.7 H (0.6-1.1) mg/dl GFR Calculation 12 Glucose 213 H (70-105) mg/dL POC Glucose 201 H (70-105) mg/dL Calcium 8.6 (8.6-10.4) mg/dl POC WB Ioniz Calcium 1.08 L (1.16-1.32) mmol/L Total Bilirubin 0.4 (0.0-1.0) mg/dL AST 23 (0-37) U/l ALT 12 (0-40) U/l Alkaline Phosphatase 147 H (39-117) U/L Troponin T (0-0.03) ng/ml Total Protein 6.3 (5.9-8.4) gm/dL Albumin 3.4 (3.2-5.2) gm/dL Globulin 2.9 (2.2-3.7) gm/dL Albumin/Globulin Ratio 1.2 (1.0-2.3) 07/26/19 07/26/19 Range/Units 20:48 20:48 WBC (4.50-11.00) K/mcL RBC (3.59-5.38) M/mcL Hgb (11.2-15.7) g/dL Hct (34.1-44.9) % POC Hct (36.0-48.0) % MCV (80.0-100.0) fL MCH (26.0-34.0) pg MCHC (31.0-36.0) g/dL RDW (11.5-14.5) % Plt Count (140-440) K/mcL MPV (7.4-10.4) fL Gran % (38.0-78.0) % Lymph % (Auto) (15.5-49.0) % Bacon % (Auto) (1.0-12.0) % Eos % (Auto) (0.0-7.0) % Baso % (Auto) (0.0-2.0) % Gran # (1.80-8.00) K/mcL Lymph # (Auto) (1.50-4.80) K/mcL Bacon # (Auto) (0.10-0.90) K/mcL Eos # (Auto) (0.00-0.70) K/mcL Baso # (Auto) (0.00-0.30) K/mcL POC PT (11.9-14.5) sec POC INR (0.9-1.2) VBG Lactic Acid 1.0 (0.5-2.0) mmol/L POC Sodium (133-145) mmol/L Sodium (133-145) mmol/L POC Potassium (3.3-5.1) mmol/L Potassium (3.3-5.1) mmol/L POC Chloride (96-108) mmol/L Chloride (96-108) mmol/L Carbon Dioxide (22-30) mmol/L POC Total CO2 (22-30) mmol/L Anion Gap (8-16) POC BUN (8-23) mg/dl BUN (8-23) mg/dl Creatinine (0.6-1.1) mg/dl POC Creatinine (0.6-1.1) mg/dl GFR Calculation Glucose (70-105) mg/dL POC Glucose (70-105) mg/dL Calcium (8.6-10.4) mg/dl POC WB Ioniz Calcium (1.16-1.32) mmol/L Total Bilirubin (0.0-1.0) mg/dL AST (0-37) U/l ALT (0-40) U/l Alkaline Phosphatase (39-117) U/L Troponin T 0.11 H* (0-0.03) ng/ml Total Protein (5.9-8.4) gm/dL Albumin (3.2-5.2) gm/dL Globulin (2.2-3.7) gm/dL Albumin/Globulin Ratio (1.0-2.3) Disposition Pt seen by DRIVER LICENSE EXAMINER/PA only: No Clinical Impression: Seizure disorder, Altered mental status Disposition: Xfer As Inpt ([facility]) Condition: Fair Referrals: Gifty Chisholm, KEYA [Primary Care Provider] -
[2019-07-26 21:00] LABS: POC Blood Urea Nitrogen 39 mg/dl (8-23); POC CO2 27 mmol/L (22-30); POC Calcium, Ionized 1.08 mmol/L (1.16-1.32); POC Chloride 89 mmol/L (96-108); POC Creatinine 3.7 mg/dl (0.6-1.1); POC Glucose, Random 201 mg/dL (70-105); POC Potassium 4.3 mmol/L (3.3-5.1); POC Sodium 125 mmol/L (133-145)
[2019-07-26 21:01] LABS: POC INR 1.2 (0.9-1.2); POC Pro Time 14.1 sec (11.9-14.5)
[2019-07-26 21:28] LABS: Basophils # (Auto) 0.09 K/mcL (0.00-0.30); Basophils % (Auto) 1.4 % (0.0-2.0); Eosinophils # (Auto) 0.22 K/mcL (0.00-0.70); Eosinophils % (Auto) 3.5 % (0.0-7.0); Granulocytes % (Auto) 77.9 % (38.0-78.0); Hematocrit 31.3 % (34.1-44.9); Hemoglobin 10.1 g/dL (11.2-15.7); Lymphocytes % (Auto) 9.6 % (15.5-49.0); Mean Cell Volume 88.9 fL (80.0-100.0); Mean Corpuscular HGB Conc 32.3 g/dL (31.0-36.0); Mean Platelet Volume 9.9 fL (7.4-10.4); Monocytes # (Auto) 0.48 K/mcL (0.10-0.90); Monocytes % (Auto) 7.6 % (1.0-12.0); Platelet Count 179 K/mcL (140-440); RBC 3.52 M/mcL (3.59-5.38); Red Cell Distribution Width 14.6 % (11.5-14.5); WBC 6.3 K/mcL (4.50-11.00)
[2019-07-26] MEDS: levETIRAcetam 1,000 MG in 0.9 % SODIUM CHLORIDE 100 ML IV SCH ×2 (21:36→22:12)
[2019-07-26 21:48] LABS: ALT/SGPT 12 U/l (0-40); AST/SGOT 23 U/l (0-37); Albumin 3.4 gm/dL (3.2-5.2); Albumin/Globulin Ratio 1.2 (1.0-2.3); Alkaline Phosphatase 147 U/L (39-117); Bilirubin,Total 0.4 mg/dL (0.0-1.0); Blood Urea Nitrogen 43 mg/dl (8-23); Calcium 8.6 mg/dl (8.6-10.4); Carbon Dioxide 23 mmol/L (22-30); Chloride 85 mmol/L (96-108); Globulin 2.9 gm/dL (2.2-3.7); Glomerular Filtration Rate 12; Glucose 213 mg/dL (70-105)
[2019-07-26] MEDS ORDERED: ACETAMINOPHEN 325 MG TABLET PO PRN (23:05)
[2019-07-26] MEDS ORDERED: ONDANSETRON 4 MG/2 ML VIAL IV PRN (23:05)
[2019-07-26] MEDS ORDERED: LORazepam 2 MG/ML VIAL IV PRN (23:21)
[2019-07-27] MEDS: 0.9 % SODIUM CHLORIDE 1,000 ML IV SCH ×2 (00:24→23:19)
--- NOTE | 2019-07-27 05:00 | XRay Report ---
CLINICAL INFORMATION: cough COMPARISON: 07/09/2019 FINDINGS: Marked cardiomegaly is increased. Pacer leads in stable satisfactory position. Mediastinum is normal. Pulmonary vessels are now moderately distended and there is mild bronchovascular edema. Right basilar infiltrate has improved considerably is now small. Small pleural effusions noted IMPRESSION: Moderate CHF. Near-complete interval resolution right basilar infiltrate Interpreted and Authenticated by: Pradeep Martines 07/27/19
--- NOTE | 2019-07-27 05:09 | Cat Scan Report ---
CLINICAL INFORMATION: Syncope COMPARISON: 08/09/2018 TECHNIQUE: 2.5 mm helical slices were obtained in the skull base to vertex. Following reconstruction, axial reformatted images were reviewed at bone and parenchymal windows. The exam was performed using radiation dose optimization techniques including, but not limited to, automated exposure control, adjustment of the mA and/or kV according to patient size and use of iterative reconstruction technique. FINDINGS: The ventricles, sulci, fissures, and cisterns are symmetrically enlarged compatible with mild age-related atrophy - no extra-axial fluid collections or masses appreciated. Mild patchy chronic ischemic changes in the deep cerebral white matter are expected for age and unchanged from previous study. There is no intracerebral hemorrhage, mass effect or edema. Heavy calcific plaque is seen in the cranial vertebral and internal carotid arteries as particularly the cavernous segments of the internal carotid arteries. Bone windows show no osseous abnormality IMPRESSION: Mild atrophy and chronic ischemic changes of the inferior white matter expected for age and unchanged from previous exam. Heavy calcific plaque in the intracranial vertebral and intracranial internal carotid arteries. Patient is risk for significant narrowing in these areas which may contribute to hypoperfusion resulting in syncope. Subtotal opacification of the bilateral anterior ethmoid air cells. Mild mucosal thickening of both maxillary sinuses compatible with sinusitis. There is also moderate bilateral mastoiditis - slight progression Interpreted and Authenticated by: Pradeep Martines 07/27/19
[2019-07-27 07:54] LABS: Basophils # (Auto) 0.06 K/mcL (0.00-0.30); Eosinophils # (Auto) 0.11 K/mcL (0.00-0.70); Eosinophils % (Auto) 1.7 % (0.0-7.0); Granulocytes % (Auto) 81.6 % (38.0-78.0); Hematocrit 34.2 % (34.1-44.9); Hemoglobin 10.9 g/dL (11.2-15.7); Lymphocytes # (Auto) 0.59 K/mcL (1.50-4.80); Lymphocytes % (Auto) 9.4 % (15.5-49.0); Mean Cell Volume 88.4 fL (80.0-100.0); Mean Corpuscular HGB Conc 31.9 g/dL (31.0-36.0); Monocytes % (Auto) 6.3 % (1.0-12.0); Platelet Count 192 K/mcL (140-440); RBC 3.87 M/mcL (3.59-5.38); Red Cell Distribution Width 14.7 % (11.5-14.5); WBC 6.3 K/mcL (4.50-11.00)
[2019-07-27 08:13] LABS: ALT/SGPT 13 U/l (0-40); AST/SGOT 28 U/l (0-37); Albumin 3.2 gm/dL (3.2-5.2); Albumin/Globulin Ratio 1.1 (1.0-2.3); Alkaline Phosphatase 167 U/L (39-117); Bilirubin,Direct 0.2 mg/dL (0.0-0.3); Bilirubin,Total 0.4 mg/dL (0.0-1.0); Blood Urea Nitrogen 49 mg/dl (8-23); Calcium 8.7 mg/dl (8.6-10.4); Carbon Dioxide 23 mmol/L (22-30); Globulin 2.9 gm/dL (2.2-3.7); Glomerular Filtration Rate 12; Glucose 256 mg/dL (70-105); Lactate Dehydrogenase 221 U/L (94-250); Triglycerides 34 mg/dl (<150); Uric Acid 4.3 mg/dL (2.5-8.0)
[2019-07-27 08:14] LABS: Chloride 84 mmol/L (96-108); Phosphorous 5.1 mg/dL (2.7-4.5)
--- NOTE | 2019-07-27 08:45 | Internal Med History&Physical ---
Medical - H&P: HPI Patient information: Note initiated : 07/27/19 at 8:40 am Service Date, if different from initiated Date: [] Patient: Shanda Rhodes a 73 y/o F admitted on 07/26/19 for abd. pain wirh syncopy episode. Chief Complaint: [] History of present illness: Ms. Rhodes is a 73 year old F History is obtained from charts as patient is a poor historian. But she does admit to being constipated and that is what seem to initiate everything last night. She had had a bowel movement in 3 days had a lot of abdominal pain after an enema. After the enema she had a large bowel movement and then appeared to pass out for a moment. Which was felt to be vagal. And then EMS was called and she seemed to have another episode of unresponsiveness and was found of a blood sugar of 34 and was given glucose. She was in and out of consciousness and brought into the ED. Does admit that her abdominal pain is better after that large bowel movement. In the ED she had a CT brain which is unremarkable for any acute pathology and a chest x-ray which was similar to previous. She had a seizure noted in the ED. She is on Lamictal at the nursing facility the daughter was concerned that they were not giving her Lamictal, but this is not confirmed and if it is on her home medication list I can not imagine her not receiving it. He was given IV Keppra in the ED. Also in ED she is noted have a sodium of 122, she does have chronic hyponatremia but this is lower than her usual. Discussed with computer tester from the ED patient will likely receive hemodialysis on Sunday. She was recently admitted for pneumonia as well as influenza B. Review of Systems: Pertinent positives as above including some nausea and chronic cough and does have some shortness of breath that is improved.. Denies headache/fever/chills/vomiting/chest pain/diarrhea. Many 10 point review of system reviewed negative Medical - H&P: PMH Medical history: Medical History (Last Updated 03/04/19 @ 05:41 by Nick Moscoso DO) CKD (chronic kidney disease), stage IV (Chronic) CHF (congestive heart failure) (Acute) Chronic anticoagulation (Chronic) Artificial cardiac pacemaker (Chronic) CVA (cerebral vascular accident) (Resolved) Diabetes mellitus type 2 with complications (Chronic) Diabetic peripheral neuropathy (Chronic) Hypothyroidism, acquired (Chronic) History of recurrent UTI (urinary tract infection) (Chronic) Myoclonus (Chronic) Dementia (Chronic) Secondary hyperparathyroidism of renal origin (Chronic) End-stage renal disease on hemodialysis (Chronic) Anemia due to end stage renal disease (Chronic) Hyponatremia (Chronic) Hypertensive renal disease (Chronic) Acute exacerbation of CHF (congestive heart failure) (Resolved) Acute kidney injury superimposed on chronic kidney disease (Resolved) Acute on chronic renal failure (Resolved) Acute renal failure superimposed on stage 3 chronic kidney disease (Resolved) Acute respiratory failure with hypoxia (Resolved) Altered mental status (Resolved) Anemia (Resolved) Anemia in stage 3 chronic kidney disease (Resolved) Blepharitis of eyelid of right eye (Resolved) CKD (chronic kidney disease), stage III (Resolved) Chronic narcotic use (Resolved) Colitis (Resolved) Community acquired pneumonia (Resolved) Contusion of left hand including fingers (Resolved) Contusion of left hip and thigh (Resolved) Contusion of rib on right side (Resolved) Contusion of right hand including fingers (Resolved) Dehydration (Resolved) Diabetic ketoacidosis associated with type 2 diabetes mellitus (Resolved) Fatigue (Resolved) Fever and chills (Resolved) Hematoma (Resolved) Hemicrania (Resolved) Hypoglycemia (Resolved) Hypoglycemia (Resolved) Hypoglycemia (Resolved) Hypoxia (Resolved) Injury of right rotator cuff (Resolved) Left hand pain (Resolved) Metabolic acidosis (Resolved) Pneumonia (Resolved) Prerenal renal failure (Resolved) Right hand pain (Resolved) Sinusitis (Resolved) Sternal pain (Resolved) Syncope and collapse (Resolved) Toenail avulsion (Resolved) UTI (urinary tract infection) (Resolved) Upper respiratory infection (Resolved) Urinary tract infection (Resolved) Vasovagal syncope (Resolved) Past Surgical History (Last Updated 03/04/19 @ 05:40 by Nick Moscoso DO) History of cataract extraction with lens replacement (Acute) Social History (Last Updated 02/24/19 @ 15:01 by KEYA Hdz) Has been living with her daughter helps take care of her but then recently placed in a nursing facility after last hospitalization She ambulates with a walker and leg braces and also uses wheelchairs Quit smoking 2011 denies alcohol use Medical - H&P: Meds Home Medications Medication Instructions Recorded Confirmed Type levETIRAcetam [Levetiracetam] 500 mg PO BID 11/10/16 07/27/19 History Clopidogrel Bisulfate [Plavix] 75 mg PO DAILY 11/20/16 07/27/19 History Acetaminophen [Tylenol] 650 mg PO Q4-6HP PRN #0 tab 11/24/16 07/27/19 Rx Accu-Chek 1 each FS ACHS strip 09/03/17 07/27/19 Rx Dextrose [Insta-Glucose] 15 gm PO PRN PRN oral.susp 09/03/17 07/27/19 Rx Insulin Lispro [Humalog] See Protocol SQ ACHS unit 09/03/17 07/27/19 Rx Insulin Glargine, Human [Lantus] 12 unit SQ BID 01/18/18 07/27/19 History Atorvastatin Calcium 80 mg PO DAILY 03/04/19 07/27/19 History Carvedilol [Coreg] 2 tablet PO BID 03/04/19 07/27/19 History Gabapentin 600 mg PO TID 03/04/19 07/27/19 History Loperamide [Imodium] 2 mg PO BIDP PRN 03/04/19 07/27/19 History Captopril [Capoten] 12.5 mg PO TID #90 tab 03/09/19 07/27/19 Rx Benzonatate [Tessalon Perle] 100 mg PO TIDP PRN #20 cap 03/10/19 07/27/19 Rx albuterol sulfate 90 mcg/actuation 1 puff INHALATION Q6H PRN #8 g 04/22/19 07/27/19 Rx aerosol inhaler B complex 11-folic acid 1 mg-C 100 1 tab PO QDAY #90 tab 05/05/19 07/27/19 Rx mg-biotin 300 mcg-zinc 50 mg tablet amlodipine 5 mg tablet 5 mg PO QDAY #90 tab 05/19/19 07/27/19 Rx Fluticasone Propionate [Flonase 2 spray INTRANASAL DAILY 07/09/19 07/27/19 History Allergy Relief] HYDROcodone/APAP 5/325MG [[place] 1 tab PO QID 07/09/19 07/27/19 History 5-325Mg] Levothyroxine [Synthroid] 125 mcg PO DAILY 07/09/19 07/27/19 History Lidocaine/Prilocaine 1 each TP MOWEFR 07/09/19 07/27/19 History [Lidocaine-Prilocaine Cream] Nitroglycerin [Nitrostat] 0.4 mg SL Q5M PRN 07/09/19 07/27/19 History Ondansetron [Zofran ODT] 4 mg SL Q8H PRN 07/09/19 07/27/19 History Polyethylene Glycol 3350 [Miralax] 17 gm PO DAILYP PRN 07/09/19 07/27/19 History Polymyxin B Sulf/Trimethoprim 1 gtt BOTH EYES Q6HP PRN 07/09/19 07/27/19 History [Polytrim Eye Drops] Sennosides [Senna] 2 tab PO DAILY 07/09/19 07/27/19 History Sevelamer Carbonate 800 mg PO TIDAC 07/09/19 07/27/19 History cloNIDine HCL [Catapres] 0.2 mg PO BID 07/09/19 07/27/19 History Insulin Lispro [HumaLOG] 4 unit SQ TIDAC 07/27/19 07/27/19 History Polyethylene Glycol 1450 [Pcca 1 gm MC DAILY 07/27/19 07/27/19 History Polyglycol Judy Base] Allergies Allergy/AdvReac Type Severity Reaction Status Date / Time lactose AdvReac Mild Diarrhea Verified 07/10/19 08:09 Medical - H&P: Exam - Constitutional Vitals: Temp Pulse Resp BP Pulse Ox 97.0 F 60 16 143/61 98 07/27/19 08:01 07/27/19 08:01 07/27/19 08:01 07/27/19 08:01 07/27/19 08:01 Exam: General: Alert, Awake, No acute Distress Eyes/N/T: EOMI, PERRL, Head/Neck: neck supple, normocephalic atraumatic CV: RRR, No murmurs, normal s1/s2 Pulm: Mildly diminished b/l, no wheezing Abd: soft, nontender, +BS x4 Ext: no clubbing/cyanosis, 1+ b/l LE edema Neuro: Alert, no focal deficits, moves all extremities, CN 2-12 grossly intact, symmetrical strength b/l upper/lower, sensations intact b/l upper/lower Skin: warm/dry Medical - H&P: Reslt - Labs CBC & Chem 7: 07/27/19 07:04 07/27/19 07:04 Labs: Short CBC 07/26/19 07/27/19 Range/Units 20:48 07:04 WBC 6.3 6.3 (4.50-11.00) K/mcL Hgb 10.1 L 10.9 L (11.2-15.7) g/dL Hct 31.3 L 34.2 (34.1-44.9) % Plt Count 179 192 (140-440) K/mcL BMP 07/26/19 07/27/19 20:48 07:04 Sodium 122 L 121 L Potassium 4.2 4.7 Chloride 85 L 84 L Carbon Dioxide 23 23 BUN 43 H 49 H Creatinine 3.5 H 3.6 H Glucose 213 H 256 H Calcium 8.6 8.7 Cardiac Enzymes 07/26/19 Range/Units 20:48 Troponin T 0.11 H* (0-0.03) ng/ml Liver Function 07/26/19 07/27/19 Range/Units 20:48 07:04 Total Bilirubin 0.4 0.4 (0.0-1.0) mg/dL Direct Bilirubin 0.2 (0.0-0.3) mg/dL GGT 95 H (5-36) U/L AST 23 28 (0-37) U/l ALT 12 13 (0-40) U/l Alkaline Phosphatase 147 H 167 H (39-117) U/L Albumin 3.4 3.2 (3.2-5.2) gm/dL Medical - H&P: A/P - Narrative A/P Narrative: A: *Hyponatremia, acute on chronic: *Seizure (h/o Sz d/o): *Hypoglycemia: *h/o systolic/diastolic CHF: h/o noncompliance with HD session recommendations *ESRD: *Anemia, chronic: *CAD w/stent, PPM: *PAF s/p PPM: *Sever Pulm HTN: *DM: *Likely underlying dementia per old notes: *HTN: *Hypothyroidism *COPD (1.5L NC @home): *Recent admission for PNA in June: P: -Nephrology following for HD/Electrolyte imbalance -cont keppra, prn ativan -keppra level pending -monitor BG closely -basal insulin (hold then restart at lower dose)and SSI -cont home plavix/statin -BP meds and diuretics per nephro -ppx: heparin DNR/DNI
[2019-07-27] MEDS ORDERED: DEXTROSE 31 GM ORAL.SUSP PO PRN (08:52)
[2019-07-27] MEDS ORDERED: POTASSIUM CHLORIDE 20 MEQ TABLET PO PRN (08:52)
[2019-07-27] MEDS ORDERED: MAGNESIUM SULFATE 2 GM/50 ML BAG IV PRN (08:52)
[2019-07-27] MEDS ORDERED: SENNOSIDES 1 TABLET PO PRN (08:52)
[2019-07-27] MEDS ORDERED: DEXTROSE 50% 50 ML VIAL IV PRN (08:52)
[2019-07-27] MEDS ORDERED: POLYETHYLENE GLYCOL 3350 17 GM PACKET PO PRN (08:52)
[2019-07-27] MEDS ORDERED: IPRATROPIUM/ALBUTEROL 3 ML AMPUL.NEB NEB PRN (08:52)
[2019-07-27] MEDS ORDERED: LACTULOSE 20 GM/30 ML ORAL.SOL PO PRN (08:52)
[2019-07-27] MEDS ORDERED: TRIMETHOPRIM BOTH EYES PRN (08:54)
[2019-07-27] MEDS ORDERED: NITROGLYCERIN 0.4 MG TAB.SUBL SL PRN (08:54)
[2019-07-27] MEDS ORDERED: POLYMYXIN B SULF BOTH EYES PRN (08:54)
--- NOTE | 2019-07-27 09:31 | Nephrology Consult Note ---
History of Present Illness - Reason for Consult Patient information: Note initiated : 07/27/19 at 9:28 am Service Date, if different from initiated Date: [] Patient: Shanda Rhodes 73 y/o F admitted on 07/26/19 for abd. pain wirh syncopy episode. Chief Complaint: [] Consult date: 07/27/19 end stage renal disease, hyponatremia - Chief Complaint seizure, hyponatremia - History of Present Illness History obtained from review of chart and brief discussion with the patient. 73-year-old female with ESRD on hemodialysis Sunday via AV fistula, last hemodialysis 07/25/2019, congestive heart failure, hypertension, seizure disorder, diabetes. The patient passed out after having a bowel movement, thought to be vagal, EMS was called after another episode of unresponsiveness and the patient was found to have hypoglycemia. She had an episode of witnessed tonic-clonic seizure in the ED. She was also noted to have hyponatremia, serum sodium 122. She has chronic hyponatremia, but this value is lower than her baseline Review of systems as above. Review of Systems Neurological: tremor(s) Past History Past medical history: Diabetes Hypertension Congestive heart failure Seizure disorder Tremor Chronic hyponatremia Past surgical history: Cataract surgery Pacemaker placement Past social history: Resident of a SNF Medications and Allergies Home Medications Medication Instructions Recorded Confirmed Type levETIRAcetam [Levetiracetam] 500 mg PO BID 11/10/16 07/27/19 History Clopidogrel Bisulfate [Plavix] 75 mg PO DAILY 11/20/16 07/27/19 History Acetaminophen [Tylenol] 650 mg PO Q4-6HP PRN #0 tab 11/24/16 07/27/19 Rx Accu-Chek 1 each FS ACHS strip 09/03/17 07/27/19 Rx Dextrose [Insta-Glucose] 15 gm PO PRN PRN oral.susp 09/03/17 07/27/19 Rx Insulin Lispro [Humalog] See Protocol SQ ACHS unit 09/03/17 07/27/19 Rx Insulin Glargine, Human [Lantus] 12 unit SQ BID 01/18/18 07/27/19 History Atorvastatin Calcium 80 mg PO DAILY 03/04/19 07/27/19 History Carvedilol [Coreg] 2 tablet PO BID 03/04/19 07/27/19 History Gabapentin 600 mg PO TID 03/04/19 07/27/19 History Loperamide [Imodium] 2 mg PO BIDP PRN 03/04/19 07/27/19 History Captopril [Capoten] 12.5 mg PO TID #90 tab 03/09/19 07/27/19 Rx Benzonatate [Tessalon Perle] 100 mg PO TIDP PRN #20 cap 03/10/19 07/27/19 Rx albuterol sulfate 90 mcg/actuation 1 puff INHALATION Q6H PRN #8 g 04/22/19 07/27/19 Rx aerosol inhaler B complex 11-folic acid 1 mg-C 100 1 tab PO QDAY #90 tab 05/05/19 07/27/19 Rx mg-biotin 300 mcg-zinc 50 mg tablet amlodipine 5 mg tablet 5 mg PO QDAY #90 tab 05/19/19 07/27/19 Rx Fluticasone Propionate [Flonase 2 spray INTRANASAL DAILY 07/09/19 07/27/19 History Allergy Relief] HYDROcodone/APAP 5/325MG [[place] 1 tab PO QID 07/09/19 07/27/19 History 5-325Mg] Levothyroxine [Synthroid] 125 mcg PO DAILY 07/09/19 07/27/19 History Lidocaine/Prilocaine 1 each TP MOWEFR 07/09/19 07/27/19 History [Lidocaine-Prilocaine Cream] Nitroglycerin [Nitrostat] 0.4 mg SL Q5M PRN 07/09/19 07/27/19 History Ondansetron [Zofran ODT] 4 mg SL Q8H PRN 07/09/19 07/27/19 History Polyethylene Glycol 3350 [Miralax] 17 gm PO DAILYP PRN 07/09/19 07/27/19 History Polymyxin B Sulf/Trimethoprim 1 gtt BOTH EYES Q6HP PRN 07/09/19 07/27/19 History [Polytrim Eye Drops] Sennosides [Senna] 2 tab PO DAILY 07/09/19 07/27/19 History Sevelamer Carbonate 800 mg PO TIDAC 07/09/19 07/27/19 History cloNIDine HCL [Catapres] 0.2 mg PO BID 07/09/19 07/27/19 History Insulin Lispro [HumaLOG] 4 unit SQ TIDAC 07/27/19 07/27/19 History Polyethylene Glycol 1450 [Pcca 1 gm MC DAILY 07/27/19 07/27/19 History Polyglycol Judy Base] Allergies Allergy/AdvReac Type Severity Reaction Status Date / Time lactose AdvReac Mild Diarrhea Verified 07/10/19 08:09 Exam - Vital Signs Vital signs: Temp Pulse Resp BP Pulse Ox 36.1 C 60 16 143/61 98 07/27/19 08:01 07/27/19 08:01 07/27/19 08:01 07/27/19 08:01 07/27/19 08:01 - General Appearance General appearance: well-nourished EENT: ATNC Results - Lab Results 07/27/19 07:04 07/27/19 07:04 Most recent lab results Calcium 8.7 mg/dl (8.6-10.4) 07/27/19 07:04 Phosphorus 5.1 mg/dL (2.7-4.5) H 07/27/19 07:04 Magnesium 2.1 mg/dL (1.6-2.5) 07/27/19 07:04 Assessment and Plan (1) Seizure disorder Status: Acute Priority: High (2) CHF (congestive heart failure) Status: Acute Priority: High Qualifiers: Heart failure type: systolic Heart failure chronicity: acute on chronic Qualified Code(s): I50.23 - Acute on chronic systolic (congestive) heart failure (3) End-stage renal disease on hemodialysis Status: Chronic Priority: Medium (4) Hyponatremia Status: Chronic Priority: High - Narrative A/P Narrative: ESRD attributed to uncontrolled diabetes and hypertension on maintenance HD MWF via AV fistula Last HD 07/25/2019 Next HD 07/27/2019, 07/28/2019 Hemodialysis today, 3 hours, sodium bath 130, 2 to 2.2 L UF as tolerated. She will have 4 hours of hemodialysis tomorrow and we will challenge her dry weight. *Please hold Coreg prior to dialysis tomorrow access AVF right upper extremity, good bruit and thrill hemodynamics and fluid status Serum albumin 3.2 Chest x-ray 07/26/2019 read as moderate CHF Echocardiogram 07/09/2019 read as LVEF 47%, mild global hypokinesis. Left ventricular diastolic dysfunction grade 3 with increased LA pressure. RV moderately dilated. RV systolic function normal. LA severely dilated, RA moderately dilated. Moderate TR. Estimated pulmonary pressure 40 mmHg. Moderate MR Patient has hyponatremia, corrected sodium 133; volume overload. Hyponatremia can lower the threshold for seizures. TSH 5 07/09/2019 Our ability to maintain her dry weight is limited by the patient's willingness to undergo UF. When I saw her Sunday she told me " you will not take any fluid off because I'm below my dry weight". The patient also tells me that she was not aware she had hyponatremia and tells me " you did not tell me when you saw me on Sunday. Did you tell me? "I explained to the patient that I did not see her on Sunday but probably on Sunday. She said "I do not think so, you there and saw me on Sunday or Sunday " *Estimated dry weight has to be decreased and if needed her blood pressure regimen adjusted by decreasing the doses. acid base Serum bicarbonate 23. Balance maintained with hemodialysis bone-mineral Calcium, magnesium within lab reference range. She has secondary hyperparathyroidism of renal origin Alkaline phosphatase 144, PTH 356. This is not bone specific isoenzyme. hematologic Hemoglobin 10.9. Ferritin 1497, T sat 41%. 07/23/2019 [facility]. Diabetes A1c 10.1 07/23/2019
[2019-07-27] MEDS: HYDROcodone/APAP 5/325MG TABLET PO SCH ×4 (09:48→23:11)
[2019-07-27] MEDS: DOCUSATE SODIUM 100 MG CAPSULE PO SCH ×2 (09:48→21:31)
[2019-07-27] MEDS: CAPTOPRIL 12.5 MG TABLET PO SCH ×3 (09:48→21:30)
[2019-07-27] MEDS: GABAPENTIN 300 MG CAPSULE PO SCH (09:48)
[2019-07-27] MEDS: CLOPIDOGREL 75 MG TABLET PO SCH (09:49)
[2019-07-27] MEDS: ATORVASTATIN 40 MG TABLET PO SCH (09:49)
[2019-07-27] MEDS: cloNIDine HCL 0.1 MG TABLET PO SCH ×2 (09:49→21:30)
[2019-07-27] MEDS: levETIRAcetam 500 MG TABLET PO SCH ×2 (09:49→21:30)
[2019-07-27] MEDS: HEPARIN 5,000 UNIT/ML VIAL SQ SCH ×2 (09:49→21:31)
[2019-07-27] MEDS: amLODIPine 5 MG TABLET PO SCH (09:49)
[2019-07-27] MEDS: INSULIN LISPRO 1 UNIT/0.01 ML UNIT SQ SCH ×3 (10:02→22:00)
[2019-07-27] MEDS: SEVELAMER 800 MG TABLET PO SCH ×2 (10:15→17:58)
[2019-07-27] MEDS: CARVEDILOL 12.5 MG TABLET PO SCH ×2 (10:17→17:57)
[2019-07-27 11:03] LABS: Appearance,Urine CLOUDY; Bacteria,Urine FEW /hpf (0); Bilirubin,Urine NEG (NEG); Color,Urine YELLOW; Culture Indicated,Urine NO; Glucose,Urine (UA) 50 mg/dL (NEG); Ketones,Urine 5/TR mg/dL (NEG); Leukocyte Esterase,Urine 500 /uL (NEG); Nitrate,Urine NEG (NEG); Protein,Urine 100 mg/dL (NEG); Specific Gravity,Urine 1.012 (1.000-1.035); Urine Blood 0.2 mg/dL (<0.03); Urine Budding Yeast MANY /hpf (0); Urine Hyphae Yeast MOD /hpf (0); Urine RBC 68 /hpf (0-1); Urine Squamous Epithelial Cell 15 /hpf (0-4); Urine Transitional Epi Cells 8 /hpf (0-2); Urine WBC > 182 /hpf (0-4); Urobilinogen,Urine NEG (NEG)
[2019-07-27] MEDS: POLYETHYLENE GLYCOL 3350 17 GM PACKET PO SCH ×2 (11:16→11:51)
--- NOTE | 2019-07-27 13:18 | XRay Report ---
CLINICAL INFORMATION: aspiration COMPARISON: 07/26/2019 FINDINGS: Heart has decreased in size, but remains mildly enlarged. Mediastinum is unremarkable. Pulmonary vessels decreasing caliber are now only mildly distended. Interstitial edema show slight decrease. Mild patchy right basilar infiltrate has worsened. There is minor atelectasis left base IMPRESSION: Mild CHF - improving Mild patchy right basilar infiltrate slight worsening Interpreted and Authenticated by: Pradeep Martines 07/27/19
--- NOTE | 2019-07-27 13:44 | Nephrology Progress Note ---
Subjective Patient information: Note initiated : 07/27/19 at 1:38 pm Service Date, if different from initiated Date: [] Patient: Shanda Rhodes a 73 y/o F admitted on 07/26/19 for abd. pain wirh syncopy episode. Chief Complaint: [] Objective - Vital Signs Vital signs: Vital Signs Temp Pulse Pulse Resp BP BP Pulse Ox 07/27/19 13:19 62 135/55 07/27/19 12:45 60 138/56 07/27/19 12:37 14 07/27/19 12:32 16 138/56 07/27/19 12:15 36.3 C 60 144/62 07/27/19 12:01 36.5 C 14 150/62 96 07/27/19 08:01 36.1 C 60 16 143/61 98 07/27/19 07:00 11 L 121/61 07/27/19 06:00 59 L 14 151/65 89 L 07/27/19 05:59 59 L 12 90 07/27/19 05:50 59 L 12 157/69 95 07/27/19 04:08 36.8 C 74 11 L 135/94 94 07/27/19 03:01 59 L 11 L 151/60 98 07/27/19 02:01 68 15 105/59 97 07/27/19 01:01 59 L 12 149/61 98 07/27/19 00:43 61 17 132/86 97 07/27/19 00:03 36.3 C 65 15 133/67 94 07/26/19 23:44 36.3 C 63 16 133/67 95 07/26/19 23:43 61 17 97 07/26/19 23:31 15 132/86 07/26/19 23:16 59 L 14 137/56 97 07/26/19 23:03 60 12 99 07/26/19 23:01 59 L 15 137/56 98 07/26/19 22:46 131/65 07/26/19 22:31 60 13 138/61 97 07/26/19 22:16 59 L 20 127/54 96 07/26/19 22:01 59 L 14 128/49 97 07/26/19 21:47 65 16 124/58 98 07/26/19 21:31 70 18 132/60 97 07/26/19 21:21 75 14 121/62 95 01/04/20 21:16 14 122/75 07/26/19 21:14 62 13 126/53 97 07/26/19 20:46 61 16 134/57 97 07/26/19 20:36 70 17 136/66 97 07/26/19 20:27 75 19 136/66 98 Intake and Output 07/26/19 07/27/19 07/27/19 21:59 05:59 13:59 Intake Total 110 500 Output Total 200 75 Balance 110 300 -75 Intake: IV 110 500 Sodium Chloride 0.9% 500 ml @ 500 Wide Open IV .Q0M [facility] Rx#: [id number] Keppra 1,000 mg In Sodium 110 Chloride 0.9% 100 ml @ 200 mls/ hr IV Q12 ONE Rx#:[id number] Output: Urine Catheter Amount 200 Void Amount 75 Other: Urine Appearance Clear Urine Color Dark Yellow Stool Size Large Stool Color Brown Stool Consistency Formed # Bowel Movements 1 Weight 74.389 kg 65.408 kg Intake & Output: Intake & Output 07/26/19 07/27/19 07/27/19 21:59 05:59 13:59 Intake Total 110 500 Output Total 200 75 Balance 110 300 -75 Weight 74.389 kg 65.408 kg Intake: IV 110 500 Sodium Chloride 0.9% 500 ml @ 500 Wide Open IV .Q0M [facility] Rx#: [id number] Keppra 1,000 mg In Sodium 110 Chloride 0.9% 100 ml @ 200 mls/ hr IV Q12 ONE Rx#:[id number] Output: Urine Catheter Amount 200 Void Amount 75 Other: Urine Appearance Clear Urine Color Dark Yellow Stool Size Large Stool Color Brown Stool Consistency Formed # Bowel Movements 1 - Lab 07/27/19 07:04 07/27/19 07:04 Most recent lab results Calcium 8.7 mg/dl (8.6-10.4) 07/27/19 07:04 Phosphorus 5.1 mg/dL (2.7-4.5) H 07/27/19 07:04 Magnesium 2.1 mg/dL (1.6-2.5) 07/27/19 07:04 Assessment and Plan (1) Seizure disorder Status: Acute Priority: High (2) CHF (congestive heart failure) Status: Acute Priority: High Qualifiers: Heart failure type: systolic Heart failure chronicity: acute on chronic Qualified Code(s): I50.23 - Acute on chronic systolic (congestive) heart failure (3) End-stage renal disease on hemodialysis Status: Chronic Priority: Medium (4) Hyponatremia Status: Chronic Priority: High - Narrative A/P Narrative: Nephrology Procedure Note This is an acute hemodialysis treatment for Ms. Shanda De La Vega. She has ESRD and undergoes HD MWF at [facility]. This is a 3-hour treatment. access is right upper extremity AV fistula. Blood flow rate is 400 mils per minute and dialysate flow rate is twice the rate of the blood flow. Dialysate composition is 3K, calcium 2.5 mEq/L, sodium 130 mEq/L. The patient is above her estimated dry weight. I will challenge her dry weight during this hospitalization. Net ultrafiltration goal for this treatment is 2 to 2.2 L as tolerated. The patient is tolerating the treatment well, respiratory rate 15, blood pressure 126/48, heart rate 61, she is on 2 L nasal cannula Dialysis medication Heparin dosing is 500 units bolus followed by 500 units/h. Last hour being heparin free.
[2019-07-27] MEDS: 0.9 % SODIUM CHLORIDE 10 ML SYRINGE IV SCH ×2 (14:35→22:41)
[2019-07-27] MEDS: BENZONATATE 100 MG CAPSULE PO PRN (15:23)
[2019-07-27] MEDS: FAMOTIDINE 20 MG TABLET PO SCH (21:30)
[2019-07-28] MEDS: 0.9 % SODIUM CHLORIDE 10 ML SYRINGE IV SCH ×3 (05:52→21:31)
[2019-07-28 06:55] LABS: Basophils # (Auto) 0.07 K/mcL (0.00-0.30); Basophils % (Auto) 1.4 % (0.0-2.0); Eosinophils # (Auto) 0.19 K/mcL (0.00-0.70); Eosinophils % (Auto) 3.7 % (0.0-7.0); Granulocytes % (Auto) 73.2 % (38.0-78.0); Hematocrit 29.6 % (34.1-44.9); Hemoglobin 9.2 g/dL (11.2-15.7); Lymphocytes # (Auto) 0.66 K/mcL (1.50-4.80); Lymphocytes % (Auto) 12.8 % (15.5-49.0); Mean Cell Volume 88.9 fL (80.0-100.0); Mean Corpuscular HGB Conc 31.1 g/dL (31.0-36.0); Mean Platelet Volume 10.2 fL (7.4-10.4); Monocytes # (Auto) 0.45 K/mcL (0.10-0.90); Monocytes % (Auto) 8.7 % (1.0-12.0); Platelet Count 185 K/mcL (140-440); RBC 3.33 M/mcL (3.59-5.38); Red Cell Distribution Width 14.7 % (11.5-14.5); WBC 5.2 K/mcL (4.50-11.00)
[2019-07-28 07:16] LABS: ALT/SGPT 11 U/l (0-40); AST/SGOT 24 U/l (0-37); Albumin/Globulin Ratio 1.2 (1.0-2.3); Alkaline Phosphatase 139 U/L (39-117); Bilirubin,Direct < 0.2 mg/dL (0.0-0.3); Bilirubin,Total 0.3 mg/dL (0.0-1.0); Blood Urea Nitrogen 25 mg/dl (8-23); Calcium 8.2 mg/dl (8.6-10.4); Carbon Dioxide 27 mmol/L (22-30); Chloride 90 mmol/L (96-108); Globulin 2.6 gm/dL (2.2-3.7); Glomerular Filtration Rate 19; Glucose 98 mg/dL (70-105); Lactate Dehydrogenase 221 U/L (94-250); Phosphorous 3.4 mg/dL (2.7-4.5); Triglycerides 27 mg/dl (<150); Uric Acid 2.6 mg/dL (2.5-8.0)
[2019-07-28] MEDS: SEVELAMER 800 MG TABLET PO SCH ×3 (07:31→18:36)
[2019-07-28] MEDS: LEVOTHYROXINE 125 MCG TABLET PO SCH (07:32)
[2019-07-28] MEDS: INSULIN LISPRO 1 UNIT/0.01 ML UNIT SQ SCH ×5 (07:32→21:30)
--- NOTE | 2019-07-28 07:41 | Internal Med Progress Note ---
Medical - PN: Subj Patient information: Note initiated : 07/28/19 at 7:38 am Service Date, if different from initiated Date: [] Patient: Shanda Rhoeds a 73 y/o F admitted on 07/26/19 for abd. pain wirh syncopy episode. Chief Complaint: [] Interval history: Ms. Rhodes is a 73 year old F History is obtained from charts as patient is a poor historian. But she does admit to being constipated and that is what seem to initiate everything last night. She had had a bowel movement in 3 days had a lot of abdominal pain after an enema. After the enema she had a large bowel movement and then appeared to pass out for a moment. Which was felt to be vagal. And then EMS was called and she seemed to have another episode of unresponsiveness and was found of a blood sugar of 34 and was given glucose. She was in and out of consciousness and brought into the ED. Does admit that her abdominal pain is better after that l arge bowel movement. In the ED she had a CT brain which is unremarkable for any acute pathology and a chest x-ray which was similar to previous. She had a seizure noted in the ED. She is on Lamictal at the nursing facility the daughter was concerned that they were not giving her Lamictal, but this is not confirmed and if it is on her home medication list I can not imagine her not receiving it. He was given IV Keppra in the ED. Also in ED she is noted have a sodium of 122, she does have chronic hyponatremia but this is lower than her usual. 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 She was recently admitted for pneumonia as well as influenza B. 07/28 Patient slept well. No new complaints overnight events. Sodium slowly improving. Did get hemodialysis yesterday and will get hemodialysis today as well. States she is on 2 L of oxygen at home. Occasional cough. Review of Systems: denies headache/fever/chills/nausea/vomiting/chest or abdominal pain/dyspnea/diarrhea. Otherwise see above. - Constitutional Vitals: Vital Signs Temp Pulse Resp BP Pulse Ox 98.6 F 60 18 113/58 94 07/28/19 04:00 07/28/19 04:00 07/28/19 04:00 07/28/19 04:00 07/28/19 04:00 Period Temp Pulse Resp BP Sys/Courtney Pulse Ox Last 24 Hr 97.0 F-98.6 F 59-62 12-18 113-168/48-77 94-98 Intake and Output 07/27/19 07/28/19 07/28/19 21:59 05:59 13:59 Intake Total 340 Output Total 2175 150 Balance -1835 -150 Weight 64.773 kg Intake & Output: Intake & Output 07/27/19 07/28/19 07/28/19 21:59 05:59 13:59 Intake Total 340 Output Total 2175 150 Balance -1835 -150 Weight 64.773 kg Intake: Oral 340 Output: Void Amount 175 150 Hemodialysis UF 2000 Other: Meal Dinner HS snack Percent of Meal Consumed 75% 100% Feeding Ability Assist with Tray Set Up Assist with Tray Set Up Urine Appearance Cloudy Cloudy Urine Color Bright Yellow Light Samanta Urine Odor Foul Strong Exam: General: Alert, Awake, No acute Distress Eyes/N/T: EOMI, Head/Neck: neck supple, CV: RRR, No murmurs, Pulm: Mildly diminished b/l, no wheezing Abd: soft, nontender, +BS x4 Ext: no clubbing/cyanosis, 1+ b/l LE edema Neuro: Alert, no focal deficits, moves all extremities, Skin: warm/dry Medical - PN: Obj Da - Labs CBC & Chem 7: 07/28/19 05:19 07/28/19 05:19 Labs: Abnormal Lab Results 07/28/19 07/28/19 07/27/19 05:19 05:19 07:30 RBC 3.33 L Hgb 9.2 L Hct 29.6 L POC Hct RDW 14.7 H Gran % Lymph % (Auto) 12.8 L Lymph # (Auto) 0.66 L POC Sodium Sodium 124 L POC Chloride Chloride 90 L Anion Gap 7.0 L POC BUN BUN 25 H Creatinine 2.4 H POC Creatinine Glucose POC Glucose Calcium 8.2 L POC WB Ioniz Calcium Phosphorus GGT 77 H Alkaline Phosphatase 139 H Troponin T Total Protein 5.6 L Albumin 3.0 L Urine Protein 100 A Urine Glucose (UA) 50 A Urine Ketones 5/tr A Urine Occult Blood 0.2 A Ur Leukocyte Esterase 500 A Urine RBC 68 H Urine WBC > 182 H Ur Squamous Epith Cells 15 H Ur Transition Epith Cell 8 H Urine Bacteria Few A Ur Yeast w Hyphae Mod A Urine Yeast (Budding) Many A 07/27/19 07/27/19 07/26/19 07:04 07:04 20:48 RBC Hgb 10.9 L Hct POC Hct RDW 14.7 H Gran % 81.6 H Lymph % (Auto) 9.4 L Lymph # (Auto) 0.59 L POC Sodium Sodium 121 L POC Chloride Chloride 84 L Anion Gap POC BUN BUN 49 H Creatinine 3.6 H POC Creatinine Glucose 256 H POC Glucose Calcium POC WB Ioniz Calcium Phosphorus 5.1 H GGT 95 H Alkaline Phosphatase 167 H Troponin T 0.11 H* Total Protein Albumin Urine Protein Urine Glucose (UA) Urine Ketones Urine Occult Blood Ur Leukocyte Esterase Urine RBC Urine WBC Ur Squamous Epith Cells Ur Transition Epith Cell Urine Bacteria Ur Yeast w Hyphae Urine Yeast (Budding) 07/26/19 07/26/19 20:48 20:48 RBC 3.52 L Hgb 10.1 L Hct 31.3 L POC Hct 32.0 L RDW 14.6 H Gran % Lymph % (Auto) 9.6 L Lymph # (Auto) 0.60 L POC Sodium 125 L Sodium 122 L POC Chloride 89 L Chloride 85 L Anion Gap POC BUN 39 H BUN 43 H Creatinine 3.5 H POC Creatinine 3.7 H Glucose 213 H POC Glucose 201 H Calcium POC WB Ioniz Calcium 1.08 L Phosphorus GGT Alkaline Phosphatase 147 H Troponin T Total Protein Albumin Urine Protein Urine Glucose (UA) Urine Ketones Urine Occult Blood Ur Leukocyte Esterase Urine RBC Urine WBC Ur Squamous Epith Cells Ur Transition Epith Cell Urine Bacteria Ur Yeast w Hyphae Urine Yeast (Budding) Meds: Medications Acetaminophen (Tylenol) 650 mg PO Q6HP PRN PRN Reason: PAIN/FEVER > 101 Hydrocodone Bitart/Acetaminophen ([place] 5/325mg) 1 tab PO QID [facility]; Protocol Last Admin: 07/27/19 23:11 Dose: 1 tab Documented by: Albuterol/Ipratropium (Duoneb) 3 ml NEB Q4HP PRN PRN Reason: Shortness Of Breath Amlodipine Besylate (Norvasc) 5 mg PO QDAY [facility] Last Admin: 07/27/19 09:49 Dose: 5 mg Documented by: Atorvastatin Calcium (Lipitor) 80 mg PO DAILY [facility] Last Admin: 07/27/19 09:49 Dose: 80 mg Documented by: Benzonatate (Tessalon) 100 mg PO Q6HP PRN PRN Reason: Cough Last Admin: 07/27/19 15:23 Dose: 100 mg Documented by: Captopril (Capoten) 12.5 mg PO TID [facility] Last Admin: 07/27/19 21:30 Dose: 12.5 mg Documented by: Carvedilol (Coreg) 12.5 mg PO BIDCC [facility] Last Admin: 07/27/19 17:57 Dose: 12.5 mg Documented by: Clonidine HCl (Catapres) 0.2 mg PO BID [facility] Last Admin: 07/27/19 21:30 Dose: 0.2 mg Documented by: Clopidogrel Bisulfate (Plavix) 75 mg PO DAILY [facility] Last Admin: 07/27/19 09:49 Dose: 75 mg Documented by: Dextrose (Dextrose 50%) 0 ml IV UD PRN PRN Reason: Hypoglycemia Diagnostic Test (Pha) (Accu-Chek) 1 each FS ACHS [facility] Last Admin: 07/28/19 07:31 Dose: 1 each Documented by: Docusate Sodium (Colace) 100 mg PO BID [facility] Last Admin: 07/27/19 21:31 Dose: 100 mg Documented by: Famotidine (Pepcid) 20 mg PO HS [facility] Last Admin: 07/27/19 21:30 Dose: 20 mg Documented by: Gabapentin (Neurontin) 300 mg PO DAILY [facility] Last Admin: 07/27/19 09:48 Dose: 300 mg Documented by: Glucose (Insta-Glucose) 15 gm PO PRN PRN PRN Reason: Hypoglycemia Heparin Sodium (Porcine) (Heparin) 5,000 unit SQ Q12 [facility] Last Admin: 07/27/19 21:31 Dose: 5,000 unit Documented by: Sodium Chloride (Sodium Chloride 0.9%) 500 mls @ 0 mls/hr IV .Q0M [facility] Last Infusion: 07/26/19 22:11 Dose: Infused Documented by: Sodium Chloride (Sodium Chloride 0.9%) 1,000 mls @ 20 mls/hr IV .Q24H [facility] Last Admin: 07/27/19 23:19 Dose: Not Given Documented by: Magnesium Sulfate (Magnesium Sulfate) 2 gm in 50 mls @ 50 mls/hr IV UD PRN PRN Reason: Magnesium </= 1.6 Insulin Human Lispro (Humalog) 0 unit SQ ACHS [facility]; Protocol Last Admin: 07/28/19 07:32 Dose: Not Given Documented by: Lactulose (Cephulac) 20 gm PO DAILYP PRN PRN Reason: Constipation Levetiracetam (Keppra) 500 mg PO BID [facility] Last Admin: 07/27/19 21:30 Dose: 500 mg Documented by: Levothyroxine Sodium (Synthroid) 125 mcg PO ACB [facility] Last Admin: 07/28/19 07:32 Dose: 125 mcg Documented by: Lorazepam (Ativan) 0 mg IV Q2HP PRN PRN Reason: Seizure Activity Nitroglycerin (Nitrostat) 0.4 mg SL Q5M PRN PRN Reason: Chest Pain Non-Formulary Medication ([place]) 1 tab PO QDAY [facility] Ondansetron HCl (Zofran) 4 mg IV Q4HP PRN PRN Reason: Nausea And Vomiting Polymyxin B Sulf/Trimethoprim [ Polytrim Eye Drops] 1 dose BOTH EYES Q6HP PRN PRN Reason: Dry Eye(s) Polyethylene Glycol (Miralax) 17 gm PO DAILY [facility] Last Admin: 07/27/19 11:51 Dose: 17 gm Documented by: Potassium Chloride (Kdur) 40 meq PO UD PRN PRN Reason: Potassium < 3 Senna (Senokot) 2 tab PO DAILYP PRN PRN Reason: Constipation Sevelamer Carbonate (Renvela) 800 mg PO TIDAC [facility] Last Admin: 07/28/19 07:31 Dose: 800 mg Documented by: Sodium Chloride (Saline Flush) 10 ml IV Q8 [facility] Last Admin: 07/28/19 05:52 Dose: 10 ml Documented by: Medical - PN: A/P - Time Spent With Patient Total time spent is greater than 50% in coordination of care (as documented) at patient's floor/unit and/or counseling patient: - Narrative A/P Narrative: A: *Hyponatremia, acute on chronic: *Seizure (h/o Sz d/o): none since ED *Hypoglycemia: *h/o systolic/diastolic CHF: h/o noncompliance with HD session recommendations *ESRD: *Anemia, chronic: *CAD w/stent, PPM: *PAF s/p PPM: *Sever Pulm HTN: *DM: *Likely underlying dementia per old notes: *HTN: *Hypothyroidism *COPD (1.5L NC @home): *Recent admission for PNA in June: P: -Nephrology following for HD/Electrolyte imbalance -cont keppra, prn ativan -keppra level pending -monitor BG closely -basal insulin (restart at lower dose)and SSI -cont home plavix/statin -BP meds and diuretics per nephro -ppx: heparin DNR/DNI
[2019-07-28] MEDS: amLODIPine 5 MG TABLET PO SCH ×3 (09:00→14:27)
[2019-07-28] MEDS: POLYETHYLENE GLYCOL 3350 17 GM PACKET PO SCH (09:00)
[2019-07-28] MEDS: DOCUSATE SODIUM 100 MG CAPSULE PO SCH ×2 (09:00→19:16)
[2019-07-28] MEDS: ATORVASTATIN 40 MG TABLET PO SCH (09:01)
[2019-07-28] MEDS: HEPARIN 5,000 UNIT/ML VIAL SQ SCH ×2 (09:01→19:17)
[2019-07-28] MEDS: HYDROcodone/APAP 5/325MG TABLET PO SCH ×4 (09:01→19:16)
[2019-07-28] MEDS: levETIRAcetam 500 MG TABLET PO SCH ×2 (09:02→19:17)
[2019-07-28] MEDS: CLOPIDOGREL 75 MG TABLET PO SCH (09:02)
[2019-07-28] MEDS: GABAPENTIN 300 MG CAPSULE PO SCH (09:02)
[2019-07-28] MEDS: CAPTOPRIL 12.5 MG TABLET PO SCH ×3 (09:04→19:17)
[2019-07-28] MEDS: BENZONATATE 100 MG CAPSULE PO PRN ×2 (09:46→16:47)
--- NOTE | 2019-07-28 13:21 | Nephrology Progress Note ---
Subjective Patient information: Note initiated : 07/28/19 at 1:19 pm Service Date, if different from initiated Date: [] Patient: Shanda Rhodes 73 y/o F admitted on 07/26/19 for abd. pain wirh syncopy episode. Chief Complaint: [] Objective - Vital Signs Vital signs: Vital Signs Temp Pulse Resp BP BP Pulse Ox 07/28/19 12:53 60 162/72 07/28/19 12:23 60 153/64 07/28/19 12:01 36.3 C 61 20 152/64 94 07/28/19 11:53 61 152/64 07/28/19 11:42 60 154/72 07/28/19 11:15 36.3 C 60 152/61 07/28/19 08:03 36.6 C 16 125/61 96 07/28/19 08:00 36.6 C 20 125/61 93 07/28/19 04:00 37.0 C 60 18 113/58 94 07/28/19 02:01 125/66 07/28/19 01:35 96 07/28/19 01:01 131/62 07/28/19 00:01 36.9 C 16 139/63 96 07/27/19 23:01 59 L 18 137/52 94 07/27/19 22:02 15 168/77 97 07/27/19 21:01 18 146/56 98 07/27/19 20:01 36.7 C 12 144/49 96 07/27/19 19:01 14 146/58 95 07/27/19 18:01 59 L 15 160/64 98 07/27/19 16:01 36.4 C 59 L 18 151/64 95 07/27/19 15:11 36.2 C 60 142/64 07/27/19 14:45 60 132/57 07/27/19 14:15 60 125/57 07/27/19 13:51 61 126/48 Intake and Output 07/27/19 07/28/19 07/28/19 21:59 05:59 13:59 Intake Total 340 Output Total 2175 150 Balance -1835 -150 Intake: Oral 340 Output: Void Amount 175 150 Hemodialysis UF 2000 Other: Meal Dinner HS snack Percent of Meal Consumed 75% 100% Feeding Ability Assist with Tray Set Up Assist with Tray Set Up Urine Appearance Cloudy Cloudy Urine Color Bright Yellow Light Samanta Urine Odor Foul Strong Weight 64.773 kg 64.773 kg Patient Weight 07/29/19 05:59 Weight 64.773 kg Intake & Output: Intake & Output 07/27/19 07/28/19 07/28/19 21:59 05:59 13:59 Intake Total 340 Output Total 2175 150 Balance -1835 -150 Weight 64.773 kg 64.773 kg Intake: Oral 340 Output: Void Amount 175 150 Hemodialysis UF 2000 Other: Meal Dinner HS snack Percent of Meal Consumed 75% 100% Feeding Ability Assist with Tray Set Up Assist with Tray Set Up Urine Appearance Cloudy Cloudy Urine Color Bright Yellow Light Samanta Urine Odor Foul Strong - General Appearance General appearance: well-nourished Cardiology: edema - Lab 07/28/19 05:19 07/28/19 05:19 Most recent lab results Calcium 8.2 mg/dl (8.6-10.4) L 07/28/19 05:19 Phosphorus 3.4 mg/dL (2.7-4.5) 07/28/19 05:19 Magnesium 1.9 mg/dL (1.6-2.5) 07/28/19 05:19 Assessment and Plan (1) Seizure disorder Status: Acute Priority: High (2) CHF (congestive heart failure) Status: Acute Priority: High Qualifiers: Heart failure type: systolic Heart failure chronicity: acute on chronic Qualified Code(s): I50.23 - Acute on chronic systolic (congestive) heart failure (3) End-stage renal disease on hemodialysis Status: Chronic Priority: Medium (4) Hyponatremia Status: Chronic Priority: High - Narrative A/P Narrative: Nephrology Procedure Note This is a routine hemodialysis treatment for Ms. Shanda De La Vega. She has ESRD and undergoes HD MWF at [facility]. This is a 4-hour treatment. access is right upper extremity AV fistula. Blood flow rate is 400 mils per minute and dialysate flow rate is twice the rate of the blood flow. Dialysate composition is 3K, calcium 2.5 mEq/L, sodium 133 mEq/L. The patient is above her estimated dry weight. I will challenge her dry weight during this hospitalization. Net ultrafiltration goal for this treatment is 2.4 L as tolerated. The patient is tolerating the treatment well, asleep at the time of my visit. + dependent edema; HR60, BP 154/64, RR 16, sat 94% if still in the hospital 07/29/2018, iUF 3 hours if the patient accepts. Dialysis medication Heparin dosing is 500 units bolus followed by 500 units/h. Last hour being heparin free.
[2019-07-28] MEDS: cloNIDine HCL 0.1 MG TABLET PO SCH ×2 (14:28→19:16)
[2019-07-28] MEDS: INSULIN GLARGINE, HUMAN 1 UNIT/0.01 ML SQ SCH ×2 (14:35→23:03)
[2019-07-28] MEDS: CARVEDILOL 12.5 MG TABLET PO SCH ×2 (14:37→16:47)
--- NOTE | 2019-07-28 17:33 | Discharge Summary ---
Medical - DS: Prov Patient information: Note initiated : 07/28/19 at 5:25 pm Service Date, if different from initiated Date: [] Patient: Shanda Rhodes 73 y/o F admitted on 07/26/19 for abd. pain wirh syncopy episode. Chief Complaint: [] Date of admission: 07/26/19 23:44 Discharge date: 07/29/19 Primary care physician: Gifty Chisholm Consults: 07/26/19 Consult to Physician [CONS] Stat Comment: Consulting Provider: Katy Meza Reason For Exam: Physician to Consult Consult to Physician [CONS] Stat Comment: Consulting Provider: Darnell Timmons Reason For Exam: Physician to Consult 07/28/19 15:45 Consult to Physician [CONS] Routine Comment: Consulting Provider: Baylee Pepper Reason For Exam: Physician to Consult Medical - DS: Meds - Discharge Medications Prescriptions: Insulin Lispro [Humalog] See Protocol SQ ACHS #1 vial Insulin Glargine, Human [Lantus] 6 unit SQ BID #1 unit Active and Home Medications: Home Medications levETIRAcetam [Levetiracetam] 500 mg PO BID 11/10/16 [History Confirmed 07/27/19 Last Taken 07/26/19 18:00] Clopidogrel Bisulfate [Plavix] 75 mg PO DAILY 11/20/16 [History Confirmed 07/27/19 Last Taken 07/26/19 16:00] Acetaminophen [Tylenol] 650 mg PO Q4-6HP PRN #0 tab 11/24/16 [Rx Confirmed 07/27/19 Last Taken 04/26/19] Accu-Chek 1 each FS ACHS strip 09/03/17 [Rx Confirmed 07/27/19 Last Taken 07/26/19 20:00] Dextrose [Insta-Glucose] 15 gm PO PRN PRN oral.susp 09/03/17 [Rx Confirmed 07/27/19 Last Taken Unknown] Insulin Lispro [Humalog] See Protocol SQ ACHS unit 09/03/17 [Rx Confirmed 07/27/19 Last Taken 07/26/19 16:30] Insulin Glargine, Human [Lantus] 12 unit SQ BID 01/18/18 [History Confirmed 07/27/19 Last Taken 07/26/19 20:00] Atorvastatin Calcium 80 mg PO DAILY 03/04/19 [History Confirmed 07/27/19 Last Taken 07/26/19 08:00] Carvedilol [Coreg] 2 tablet PO BID 03/04/19 [History Confirmed 07/27/19 Last Taken 07/26/19 20:00] Gabapentin 600 mg PO TID 03/04/19 [History Confirmed 07/27/19 Last Taken 07/26/19 14:00] Loperamide [Imodium] 2 mg PO BIDP PRN 03/04/19 [History Confirmed 07/27/19 Last Taken 04/16/19] Captopril [Capoten] 12.5 mg PO TID #90 tab 03/09/19 [Rx Confirmed 07/27/19 Last Taken 07/26/19 20:00] Benzonatate [Tessalon Perle] 100 mg PO TIDP PRN #20 cap 03/10/19 [Rx Confirmed 07/27/19 Last Taken 07/24/19 16:38] albuterol sulfate 90 mcg/actuation aerosol inhaler 1 puff INHALATION Q6H PRN #8 g 04/22/19 [Rx Confirmed 07/27/19 Last Taken 04/26/19] B complex 11-folic acid 1 mg-C 100 mg-biotin 300 mcg-zinc 50 mg tablet 1 tab PO QDAY #90 tab 05/05/19 [Rx Confirmed 07/27/19 Last Taken 07/26/18 08:00] amlodipine 5 mg tablet 5 mg PO QDAY #90 tab 05/19/19 [Rx Confirmed 07/27/19 Last Taken 07/26/19 08:00] Fluticasone Propionate [Flonase Allergy Relief] 2 spray INTRANASAL DAILY 07/09/19 [History Confirmed 07/27/19 Last Taken 07/26/19 08:00] HYDROcodone/APAP 5/325MG [Oktaha 5-325Mg] 1 tab PO QID 07/09/19 [History Confirmed 07/27/19 Last Taken 07/26/19 20:00] Levothyroxine [Synthroid] 125 mcg PO DAILY 07/09/19 [History Confirmed 07/27/19 Last Taken 07/26/19 07:00] Lidocaine/Prilocaine [Lidocaine-Prilocaine Cream] 1 each TP MOWEFR 07/09/19 [History Confirmed 07/27/19 Last Taken 07/25/19 07:00] Nitroglycerin [Nitrostat] 0.4 mg SL Q5M PRN 07/09/19 [History Confirmed 07/27/19 Last Taken Unknown] Ondansetron [Zofran ODT] 4 mg SL Q8H PRN 07/09/19 [History Confirmed 07/27/19 Last Taken 07/26/19 16:38] Polyethylene Glycol 3350 [Miralax] 17 gm PO DAILYP PRN 07/09/19 [History Confirmed 07/27/19 Last Taken Unknown] Polymyxin B Sulf/Trimethoprim [Polytrim Eye Drops] 1 gtt BOTH EYES Q6HP PRN 07/09/19 [History Confirmed 07/27/19 Last Taken Unknown] Sennosides [Senna] 2 tab PO DAILY 07/09/19 [History Confirmed 07/27/19 Last Taken 07/26/19 08:00] Sevelamer Carbonate 800 mg PO TIDAC 07/09/19 [History Confirmed 07/27/19 Last Taken 07/26/19 16:30] cloNIDine HCL [Catapres] 0.2 mg PO BID 07/09/19 [History Confirmed 07/27/19 Last Taken 07/26/19 18:00] Insulin Lispro [HumaLOG] 4 unit SQ TIDAC 07/27/19 [History Confirmed 07/27/19 Last Taken 07/26/19 16:30 +] Polyethylene Glycol 1450 [Pcca Polyglycol Judy Base] 1 gm MC DAILY 07/27/19 [History Confirmed 07/27/19 Last Taken 07/26/19 08:00] Home Medications levETIRAcetam [Levetiracetam] 500 mg PO BID 11/10/16 [History Confirmed 07/27/19 Last Taken 07/26/19 18:00] Clopidogrel Bisulfate [Plavix] 75 mg PO DAILY 11/20/16 [History Confirmed 07/27/19 Last Taken 07/26/19 16:00] Acetaminophen [Tylenol] 650 mg PO Q4-6HP PRN #0 tab 11/24/16 [Rx Confirmed 07/27/19 Last Taken 04/26/19] Accu-Chek 1 each FS ACHS strip 09/03/17 [Rx Confirmed 07/27/19 Last Taken 07/26/19 20:00] Dextrose [Insta-Glucose] 15 gm PO PRN PRN oral.susp 09/03/17 [Rx Confirmed 07/27/19 Last Taken Unknown] Insulin Lispro [Humalog] See Protocol SQ ACHS unit 09/03/17 [Rx Confirmed 07/27/19 Last Taken 07/26/19 16:30] Atorvastatin Calcium 80 mg PO DAILY 03/04/19 [History Confirmed 07/27/19 Last Taken 07/26/19 08:00] Carvedilol [Coreg] 2 tablet PO BID 03/04/19 [History Confirmed 07/27/19 Last Taken 07/26/19 20:00] Gabapentin 600 mg PO TID 03/04/19 [History Confirmed 07/27/19 Last Taken 07/26/19 14:00] Loperamide [Imodium] 2 mg PO BIDP PRN 03/04/19 [History Confirmed 07/27/19 Last Taken 04/16/19] Captopril [Capoten] 12.5 mg PO TID #90 tab 03/09/19 [Rx Confirmed 07/27/19 Last Taken 07/26/19 20:00] Benzonatate [Tessalon Perle] 100 mg PO TIDP PRN #20 cap 03/10/19 [Rx Confirmed 07/27/19 Last Taken 07/24/19 16:38] albuterol sulfate 90 mcg/actuation aerosol inhaler 1 puff INHALATION Q6H PRN #8 g 04/22/19 [Rx Confirmed 07/27/19 Last Taken 04/26/19] B complex 11-folic acid 1 mg-C 100 mg-biotin 300 mcg-zinc 50 mg tablet 1 tab PO QDAY #90 tab 05/05/19 [Rx Confirmed 07/27/19 Last Taken 07/26/18 08:00] amlodipine 5 mg tablet 5 mg PO QDAY #90 tab 05/19/19 [Rx Confirmed 07/27/19 Last Taken 07/26/19 08:00] Fluticasone Propionate [Flonase Allergy Relief] 2 spray INTRANASAL DAILY 07/09/19 [History Confirmed 07/27/19 Last Taken 07/26/19 08:00] HYDROcodone/APAP 5/325MG [[place]ha 5-325Mg] 1 tab PO QID 07/09/19 [History Confirmed 07/27/19 Last Taken 07/26/19 20:00] Levothyroxine [Synthroid] 125 mcg PO DAILY 07/09/19 [History Confirmed 07/27/19 Last Taken 07/26/19 07:00] Lidocaine/Prilocaine [Lidocaine-Prilocaine Cream] 1 each TP MOWEFR 07/09/19 [History Confirmed 07/27/19 Last Taken 07/25/19 07:00] Nitroglycerin [Nitrostat] 0.4 mg SL Q5M PRN 07/09/19 [History Confirmed 07/27/19 Last Taken Unknown] Ondansetron [Zofran ODT] 4 mg SL Q8H PRN 07/09/19 [History Confirmed 07/27/19 Last Taken 07/26/19 16:38] Polyethylene Glycol 3350 [Miralax] 17 gm PO DAILYP PRN 07/09/19 [History Confirmed 07/27/19 Last Taken Unknown] Polymyxin B Sulf/Trimethoprim [Polytrim Eye Drops] 1 gtt BOTH EYES Q6HP PRN 07/09/19 [History Confirmed 07/27/19 Last Taken Unknown] Sennosides [Senna] 2 tab PO DAILY 07/09/19 [History Confirmed 07/27/19 Last Taken 07/26/19 08:00] Sevelamer Carbonate 800 mg PO TIDAC 07/09/19 [History Confirmed 07/27/19 Last Taken 07/26/19 16:30] cloNIDine HCL [Catapres] 0.2 mg PO BID 07/09/19 [History Confirmed 07/27/19 Last Taken 07/26/19 18:00] Insulin Lispro [Humalog] 4 unit SQ TIDAC 07/27/19 [History Confirmed 07/27/19 Last Taken 07/26/19 16:30 +] Polyethylene Glycol 1450 [Pcca Polyglycol Judy Base] 1 gm MC DAILY 07/27/19 [History Confirmed 07/27/19 Last Taken 07/26/19 08:00] Insulin Glargine, Human [Lantus] 6 unit SQ BID #1 unit 07/28/19 [Rx Last Taken Unknown] Insulin Lispro [Humalog] See Protocol SQ ACHS #1 vial 07/28/19 [Rx Last Taken Unknown] Medical - DS: Hosp Hospital Course: A: *Hyponatremia, acute on chronic: *Seizure (h/o Sz d/o): none since ED, likely related to hypoglycemia *Hypoglycemia: home med listed as 12units bid, but recent discharge showing 8 units bid *h/o systolic/diastolic CHF: h/o noncompliance with HD session recommendations *ESRD: *Anemia, chronic: *CAD w/stent, PPM: *PAF s/p PPM: *Sever Pulm HTN: *DM: *Likely underlying dementia per old notes: *HTN: *Hypothyroidism *COPD (1.5L NC @home): *Recent admission for PNA in June: Ms. Rhodes is a 73 year old F History is obtained from charts as patient is a poor historian. But she does admit to being constipated and that is what seem to initiate everything last night. She had had a bowel movement in 3 days had a lot of abdominal pain after an enema. After the enema she had a large bowel movement and then appeared to pass out for a moment. Which was felt to be vagal. And then EMS was called and she seemed to have another episode of unresponsiveness and was found of a blood sugar of 34 and was given glucose. She was in and out of consciousness and brought into the ED. Does admit that her abdominal pain is better after that large bowel movement. In the ED she had a CT brain which is unremarkable for any acute pathology and a chest x-ray which was similar to previous. She had a seizure noted in the ED. She is on Lamictal at the nursing facility the daughter was concerned that they were not giving her Lamictal, but this is not confirmed and if it is on her home medication list I can not imagine her not receiving it. He was given IV Keppra in the ED. Also in ED she is noted have a sodium of 122, she does have chronic hyponatremia but this is lower than her usual. Discussed with composition weatherboard applier from the ED patient will likely receive hemodialysis on Sunday. She was recently admitted for pneumonia as well as influenza B. 07/28 Patient slept well. No new complaints overnight events. Sodium slowly improving. Did get hemodialysis yesterday and will get hemodialysis today as well. States she is on 2 L of oxygen at home. Occasional cough. home med listed as 12units bid, but recent discharge showing 8 units bid 07/29 Patient doing well, sodium improved. Blood glucose better. Stable for discharge Discharge diagnosis: Hypoglycemia seizure hyponatremia end-stage renal disease Secondary discharge diagnosis: CHF CAD proximal atrial fibrillation anemia diabetes likely underlying dementia hypertension hypothyroidism COPD - Time Spent with Patient Total time spent providing and/or coordinating discharge services: Greater than 30 minutes Medical - DS: Exam - Constitutional Vitals: Vital Signs Temp Pulse Resp BP BP Pulse Ox 07/28/19 17:12 60 16 07/28/19 17:05 97 07/28/19 16:01 97.6 F 20 168/67 93 07/28/19 15:25 18 171/70 07/28/19 15:20 62 172/65 92 07/28/19 15:08 60 172/65 07/28/19 15:01 173/69 07/28/19 14:53 60 173/69 07/28/19 14:31 63 174/69 91 07/28/19 14:23 64 174/69 07/28/19 14:01 165/76 94 07/28/19 13:52 60 165/76 07/28/19 13:31 164/72 95 07/28/19 13:23 60 164/72 07/28/19 13:01 162/72 98 07/28/19 12:53 60 162/72 07/28/19 12:31 153/64 95 07/28/19 12:23 60 153/64 07/28/19 12:01 97.4 F 61 20 152/64 94 07/28/19 11:53 61 152/64 07/28/19 11:42 60 154/72 07/28/19 11:15 97.4 F 60 152/61 07/28/19 08:03 98 F 16 125/61 96 07/28/19 08:00 98 F 20 125/61 93 07/28/19 04:00 98.6 F 60 18 113/58 94 07/28/19 02:01 125/66 07/28/19 01:35 96 07/28/19 01:01 131/62 07/28/19 00:01 98.4 F 16 139/63 96 07/27/19 23:01 59 L 18 137/52 94 07/27/19 22:02 15 168/77 97 07/27/19 21:01 18 146/56 98 07/27/19 20:01 98.1 F 12 144/49 96 07/27/19 19:01 14 146/58 95 07/27/19 18:01 59 L 15 160/64 98 Intake and Output 07/28/19 07/28/19 07/28/19 05:59 13:59 21:59 Intake Total 1062 Output Total 150 2500 Balance -150 1062 -2500 Intake: IV 632 Sodium Chloride 0.9% 1,000 ml @ 632 20 mls/hr IV .Q24H [facility] Rx#: [id number] Oral 430 Output: Void Amount 150 Hemodialysis UF 2500 Other: Meal HS snack Breakfast Percent of Meal Consumed 100% 100% Feeding Ability Assist with Tray Set Up Assist with Tray Set Up Urine Appearance Cloudy Urine Color Light Samanta Urine Odor Strong Weight 64.773 kg Patient Weight 07/29/19 05:59 Weight 64.773 kg Medical - DS: Data Labs on day of discharge: Labs from last 24 hours 07/28/19 07/28/19 05:19 05:19 WBC 5.2 RBC 3.33 L Hgb 9.2 L Hct 29.6 L MCV 88.9 MCH 27.6 MCHC 31.1 RDW 14.7 H Plt Count 185 MPV 10.2 Gran % 73.2 Lymph % (Auto) 12.8 L [place] % (Auto) 8.7 Eos % (Auto) 3.7 Baso % (Auto) 1.4 Gran # 3.78 Lymph # (Auto) 0.66 L [place] # (Auto) 0.45 Eos # (Auto) 0.19 Baso # (Auto) 0.07 Sodium 124 L Potassium 4.7 Chloride 90 L Carbon Dioxide 27 Anion Gap 7.0 L BUN 25 H Creatinine 2.4 H GFR Calculation 19 Glucose 98 Uric Acid 2.6 Calcium 8.2 L Phosphorus 3.4 Magnesium 1.9 Total Bilirubin 0.3 Direct Bilirubin < 0.2 GGT 77 H AST 24 ALT 11 Alkaline Phosphatase 139 H Lactate Dehydrogenase 221 Total Protein 5.6 L Albumin 3.0 L Globulin 2.6 Albumin/Globulin Ratio 1.2 Triglycerides 27 Medical - DS: A/P - Patient/Caregiver Discharge Instructions Activity: as per physical therapy Diet: Renal/Consistent Carbs Prescriptions: Insulin Lispro [Humalog] See Protocol SQ ACHS #1 vial Insulin Glargine, Human [Lantus] 6 unit SQ BID #1 unit - Follow up Plan Follow up with: Gifty Chisholm ARNP [Primary Care Provider] - Katy Meza MD [Physician] - Disposition: Xfer SNF Prognosis: Undetermined Rehab Potential: Fair I certify that the patient requires SNF services: Yes Overall status at discharge: patient is progressing back to baseline
[2019-07-28] MEDS: FAMOTIDINE 20 MG TABLET PO SCH (19:17)
[2019-07-29 05:35] LABS: POC Blood Urea Nitrogen 16 mg/dl (8-23); POC CO2 27 mmol/L (22-30); POC Calcium, Ionized 1.15 mmol/L (1.16-1.32); POC Chloride 88 mmol/L (96-108); POC Creatinine 2.1 mg/dl (0.6-1.1); POC Glucose, Random 205 mg/dL (70-105); POC Potassium 4.5 mmol/L (3.3-5.1); POC Sodium 125 mmol/L (133-145)
[2019-07-29] MEDS: 0.9 % SODIUM CHLORIDE 10 ML SYRINGE IV SCH (06:11)
[2019-07-29 06:39] LABS: Basophils # (Auto) 0.07 K/mcL (0.00-0.30); Basophils % (Auto) 1.2 % (0.0-2.0); Eosinophils # (Auto) 0.12 K/mcL (0.00-0.70); Granulocytes % (Auto) 78.5 % (38.0-78.0); Hematocrit 29.7 % (34.1-44.9); Hemoglobin 9.6 g/dL (11.2-15.7); Lymphocytes # (Auto) 0.64 K/mcL (1.50-4.80); Lymphocytes % (Auto) 10.7 % (15.5-49.0); Mean Cell Volume 88.4 fL (80.0-100.0); Mean Corpuscular HGB Conc 32.3 g/dL (31.0-36.0); Mean Platelet Volume 10.1 fL (7.4-10.4); Monocytes # (Auto) 0.45 K/mcL (0.10-0.90); Monocytes % (Auto) 7.6 % (1.0-12.0); Platelet Count 157 K/mcL (140-440); RBC 3.36 M/mcL (3.59-5.38); Red Cell Distribution Width 14.8 % (11.5-14.5)
[2019-07-29] MEDS: BENZONATATE 100 MG CAPSULE PO PRN (06:51)
[2019-07-29 07:16] LABS: ALT/SGPT 10 U/l (0-40); AST/SGOT 21 U/l (0-37); Albumin 3.4 gm/dL (3.2-5.2); Albumin/Globulin Ratio 1.3 (1.0-2.3); Alkaline Phosphatase 153 U/L (39-117); Bilirubin,Direct < 0.2 mg/dL (0.0-0.3); Bilirubin,Total 0.5 mg/dL (0.0-1.0); Calcium 8.8 mg/dl (8.6-10.4); Carbon Dioxide 24 mmol/L (22-30); Globulin 2.7 gm/dL (2.2-3.7); Glucose 210 mg/dL (70-105); Lactate Dehydrogenase 206 U/L (94-250); Triglycerides 48 mg/dl (<150); Uric Acid 2.1 mg/dL (2.5-8.0)
[2019-07-29 07:50] LABS: Blood Urea Nitrogen 16 mg/dl (8-23); Chloride 89 mmol/L (96-108); Glomerular Filtration Rate 26; Phosphorous 2.6 mg/dL (2.7-4.5)
[2019-07-29] MEDS: LEVOTHYROXINE 125 MCG TABLET PO SCH (08:05)
[2019-07-29] MEDS: CARVEDILOL 12.5 MG TABLET PO SCH (08:05)
[2019-07-29] MEDS: INSULIN LISPRO 1 UNIT/0.01 ML UNIT SQ SCH (08:05)
[2019-07-29] MEDS: SEVELAMER 800 MG TABLET PO SCH (08:05)
[2019-07-29] MEDS ORDERED: FOLIC ACID/VITAMIN B COMP W-C 1 TAB TABLET PO SCH (09:00)
[2019-07-29] MEDS: CAPTOPRIL 12.5 MG TABLET PO SCH (09:05)
[2019-07-29] MEDS: INSULIN GLARGINE, HUMAN 1 UNIT/0.01 ML SQ SCH (09:06)
[2019-07-29] MEDS: DOCUSATE SODIUM 100 MG CAPSULE PO SCH (09:06)
[2019-07-29] MEDS: HEPARIN 5,000 UNIT/ML VIAL SQ SCH (09:06)
[2019-07-29] MEDS: cloNIDine HCL 0.1 MG TABLET PO SCH (09:06)
[2019-07-29] MEDS: ATORVASTATIN 40 MG TABLET PO SCH (09:06)
[2019-07-29] MEDS: levETIRAcetam 500 MG TABLET PO SCH (09:06)
[2019-07-29] MEDS: GABAPENTIN 300 MG CAPSULE PO SCH (09:07)
[2019-07-29] MEDS: HYDROcodone/APAP 5/325MG TABLET PO SCH (09:07)
[2019-07-29] MEDS: POLYETHYLENE GLYCOL 3350 17 GM PACKET PO SCH (09:07)
[2019-07-29] MEDS: amLODIPine 5 MG TABLET PO SCH (09:08)
[2019-07-29] MEDS: CLOPIDOGREL 75 MG TABLET PO SCH (09:08)
[2019-07-29] MEDS ORDERED: guaiFENesin 600 MG TAB.SR.12H PO ONE (10:12)
== END 2019-07-29 11:30 ==
LOC: ED 20:25 → ICU 23:44
PROVIDERS: ADMIT Internal Medicine; ATTEND Internal Medicine

== ENCOUNTER 2020-01-18 11:33 | Inpatient (IN) ==
[2020-01-18] MEDS ORDERED: 0.9 % SODIUM CHLORIDE 1,000 ML IV ONE ×2 (11:51→13:46)
[2020-01-18 12:08] LABS: POC Blood Urea Nitrogen 77 mg/dl (8-23); POC CO2 22 mmol/L (22-30); POC Calcium, Ionized 1.13 mmol/L (1.16-1.32); POC Chloride 85 mmol/L (96-108); POC Creatinine 3.9 mg/dl (0.6-1.1); POC Glucose, Random 672 mg/dL (70-105); POC Potassium 4.6 mmol/L (3.3-5.1); POC Sodium 121 mmol/L (133-145)
[2020-01-18] MEDS ORDERED: INSULIN REGULAR, HUMAN 1 UNIT/0.01 ML UNIT SQ ONE (12:24)
[2020-01-18 12:39] LABS: Eosinophils % (Auto) 3.9 % (0.0-7.0); Granulocytes % (Auto) 78.6 % (38.0-78.0); Hematocrit 28.1 % (34.1-44.9); Hemoglobin 9.5 g/dL (11.2-15.7); Lymphocytes % (Auto) 10.8 % (15.5-49.0); Mean Corpuscular HGB Conc 33.8 g/dL (31.0-36.0); Mean Platelet Volume 10.9 fL (7.4-10.4); Monocytes % (Auto) 6.3 % (1.0-12.0); Platelet Count 147 K/mcL (140-440); RBC 3.02 M/mcL (3.59-5.38); Red Cell Distribution Width 14.8 % (11.5-14.5); WBC 4.9 K/mcL (4.50-11.00)
[2020-01-18 12:40] LABS: Basophils # (Auto) 0.02 K/mcL (0.00-0.30); Basophils % (Auto) 0.4 % (0.0-2.0); Eosinophils # (Auto) 0.19 K/mcL (0.00-0.70); Lymphocytes # (Auto) 0.53 K/mcL (1.50-4.80); Monocytes # (Auto) 0.31 K/mcL (0.10-0.90)
[2020-01-18 13:06] LABS: ALT/SGPT 19 U/l (0-40); AST/SGOT 20 U/l (0-37); Albumin/Globulin Ratio 1.5 (1.0-2.3); Alkaline Phosphatase 182 U/L (39-117); Beta Hydroxybutyrate 0.24 mmol/L (< 0.27); Bilirubin,Total 0.5 mg/dL (0.0-1.0); Blood Urea Nitrogen 69 mg/dl (8-23); Calcium 8.6 mg/dl (8.6-10.4); Carbon Dioxide 20 mmol/L (22-30); Chloride 79 mmol/L (96-108); Globulin 2.6 gm/dL (2.2-3.7); Glomerular Filtration Rate 11; Glucose 710 mg/dL (70-105)
[2020-01-18] MEDS ORDERED: INSULIN REGULAR, HUMAN 1 UNIT/0.01 ML UNIT IV ONE (13:49)
[2020-01-18] MEDS ORDERED: INSULIN REGULAR, HUMAN 50 UNIT in 0.9 % SODIUM CHLORIDE 99.5 ML IV SCH (14:00)
--- NOTE | 2020-01-18 14:31 | Emergency Department Note ---
HPI General Chief complaint: Recheck/Abnormal Lab/Rx Stated complaint: here for refill of novolog Time Seen by Provider: 01/18/20 11:39 Source: patient Mode of arrival: wheelchair Limitations: no limitations History of Present Illness HPI Narrative: 74-year-old female presents stating she ran out of her short acting insulin and needs more. States she needed to give herself 12 units today but she only had 8 left and her sugars reading high. She does note that her sugars been a lot higher than normal the last week and she does not know why. She denies any recent cough, cold, or illness. No medication changes. She is a dialysis patient and normally sees Dr. bui us. Her next dialysis is 7:30 AM tomorrow morning. States she feels fine and she does not want us to do anything other than give her 4 units of insulin and send her home with a prescription. Her daughter that usually takes care of her is out of town and so her other daughter is here with her but her daughter states she is going out of town as well and that her mom sick and needs to be admitted. No fever or chills. No nausea, vomiting, or diarrhea. No recent travel or ill contacts. No cough or shortness of breath. Related Data Home Medications Medication Instructions Recorded Confirmed levetiracetam 500 mg PO BID 11/10/16 10/08/19 clopidogrel 75 mg PO DAILY 11/20/16 10/08/19 atorvastatin 80 mg PO DAILY 03/04/19 10/08/19 carvedilol 2 tablet PO BID 03/04/19 10/08/19 gabapentin 600 mg PO TID 03/04/19 10/08/19 loperamide 2 mg PO BIDP PRN 03/04/19 10/08/19 clonidine HCl 0.2 mg PO BID 07/09/19 10/08/19 fluticasone propionate 2 spray INTRANASAL DAILY 07/09/19 10/08/19 hydrocodone-acetaminophen 1 tab PO QID 07/09/19 10/08/19 levothyroxine 125 mcg PO DAILY 07/09/19 10/08/19 lidocaine-prilocaine 1 each TP MOWEFR 07/09/19 10/08/19 nitroglycerin 0.4 mg SL Q5M PRN 07/09/19 10/08/19 polyethylene glycol 3350 17 gm PO DAILYP PRN 07/09/19 10/08/19 polymyxin B sulf-trimethoprim 1 gtt BOTH EYES Q6HP PRN 07/09/19 10/08/19 sennosides 2 tab PO DAILY 07/09/19 10/08/19 insulin lispro 4 unit SQ TIDAC 07/27/19 10/08/19 polyethylene glycol 1450(bulk) 1 gm MC DAILY 07/27/19 10/08/19 B complex-vitamin C-folic acid 1 tab PO DAILY 09/29/19 10/08/19 albuterol sulfate 2 puff INH Q4-6HP PRN 09/29/19 10/08/19 zolpidem 5 mg PO ONCE 09/29/19 10/08/19 amlodipine 5 mg PO ONCE 10/08/19 10/08/19 furosemide 80 mg PO BIDD 10/08/19 10/08/19 Previous Rx's Medication Instructions Recorded acetaminophen 650 mg PO Q4-6HP PRN #0 tab 11/24/16 Accu-Chek 1 each FS ACHS strip 09/03/17 nbeptvvp-qbjcxwx-whqnhlz 15 gm PO PRN PRN oral.susp 09/03/17 insulin lispro See Protocol SQ ACHS unit 09/03/17 captopril 12.5 mg PO TID #90 tab 03/09/19 benzonatate 100 mg PO TIDP PRN #20 cap 03/10/19 albuterol sulfate 90 mcg/actuation 1 puff INHALATION Q6H PRN #8 g 04/22/19 aerosol inhaler B complex 11-folic acid 1 mg-C 100 1 tab PO QDAY #90 tab 05/05/19 mg-biotin 300 mcg-zinc 50 mg tablet insulin glargine 6 unit SQ BID #1 unit 07/28/19 insulin lispro See Protocol SQ ACHS #1 vial 07/28/19 blood-glucose meter #1 each 11/26/19 sevelamer carbonate 800 mg tablet 1,600 mg PO TID #180 tab 12/10/19 nitrofurantoin monohyd/m-cryst 100 mg PO BID #14 cap 12/14/19 Allergies Allergy/AdvReac Type Severity Reaction Status Date / Time lactose AdvReac Mild Diarrhea Verified 01/18/20 11:36 Review of Systems All systems ED: reviewed and negative except as stated. FORMERLY [facility], 1928–1983 Medical/Surgical/Family History All Active Problems (Updated 01/18/20 @ 14:31 by KEYA Camilo) Anemia (Acute) UTI (urinary tract infection) (Acute) Hyperglycemia (Acute) Hyponatremia (Acute) Medication refill (Acute) Diabetes (Acute) Chronic kidney disease (CKD) (Acute) Dialysis patient (Acute) DNR no code (do not resuscitate) (Chronic) Anemia in ESRD (end-stage renal disease) (Chronic) Seizure disorder (Chronic) Hyperglycemia due to type 2 diabetes mellitus (Chronic) Chronic hyponatremia (Chronic) Lower gastrointestinal hemorrhage (Chronic) Hematochezia (Acute) Upper gastrointestinal hemorrhage (Acute) Status post insertion of drug-eluting stent into left anterior descending (LAD) artery (Chronic) CAD (coronary artery disease) (Chronic) Status cardiac pacemaker (Chronic) AF (paroxysmal atrial fibrillation) (Chronic) CKD (chronic kidney disease), stage IV (Chronic) CHF (congestive heart failure) (Acute) Chronic anticoagulation (Chronic) Artificial cardiac pacemaker (Chronic) Diabetes mellitus type 2 with complications (Chronic) Diabetic peripheral neuropathy (Chronic) Hypothyroidism, acquired (Chronic) History of recurrent UTI (urinary tract infection) (Chronic) Myoclonus (Chronic) Dementia (Chronic) Secondary hyperparathyroidism of renal origin (Chronic) End-stage renal disease on hemodialysis (Chronic) Anemia due to end stage renal disease (Chronic) Hyponatremia (Chronic) Hypertensive renal disease (Chronic) Medical History (Updated 01/18/20 @ 14:31 by KEYA Camilo) Acute exacerbation of CHF (congestive heart failure) (Resolved) Acute kidney injury superimposed on chronic kidney disease (Resolved) Acute on chronic renal failure (Resolved) Acute renal failure superimposed on stage 3 chronic kidney disease (Resolved) Acute respiratory failure with hypoxia (Resolved) AF (paroxysmal atrial fibrillation) (Chronic) Altered mental status (Resolved) Altered mental status (Resolved) Anemia (Resolved) Anemia due to end stage renal disease (Chronic) Anemia in ESRD (end-stage renal disease) (Chronic) Anemia in stage 3 chronic kidney disease (Resolved) Artificial cardiac pacemaker (Chronic) defib??? Blepharitis of eyelid of right eye (Resolved) CAD (coronary artery disease) (Chronic) Chest pain (Resolved) CHF (congestive heart failure) (Acute) Chronic anticoagulation (Chronic) clopidrogel Chronic hyponatremia (Chronic) Chronic narcotic use (Resolved) CKD (chronic kidney disease), stage III (Resolved) CKD (chronic kidney disease), stage IV (Chronic) Colitis (Resolved) Community acquired pneumonia (Resolved) Contusion of left hand including fingers (Resolved) Contusion of left hip and thigh (Resolved) Contusion of rib on right side (Resolved) Contusion of right hand including fingers (Resolved) CVA (cerebral vascular accident) (Resolved) Dehydration (Resolved) Dementia (Chronic) Diabetes mellitus type 2 with complications (Chronic) Diabetic ketoacidosis associated with type 2 diabetes mellitus (Resolved) Diabetic peripheral neuropathy (Chronic) severe; AFO braces bilateral feet/ankles DNR no code (do not resuscitate) (Chronic) End-stage renal disease on hemodialysis (Chronic) Fatigue (Resolved) Fever and chills (Resolved) Hematochezia (Acute) Hematoma (Resolved) Hemicrania (Resolved) History of recurrent UTI (urinary tract infection) (Chronic) Hyperglycemia due to type 2 diabetes mellitus (Chronic) Hypertensive renal disease (Chronic) BP at goal 138/66 ct coreg 6.25mg bid ct furosemide 20mg po daily follow low sodium diet will add losartan next visit if renal function is stable and she has no further complications Hypoglycemia (Resolved) Hypoglycemia (Resolved) Hypoglycemia (Resolved) Hypoglycemia (Resolved) Hyponatremia (Chronic) Hypothyroidism, acquired (Chronic) Hypoxia (Resolved) Hypoxia (Resolved) Injury of right rotator cuff (Resolved) Left hand pain (Resolved) Lower gastrointestinal hemorrhage (Chronic) Metabolic acidosis (Resolved) Myoclonus (Chronic) Pneumonia (Resolved) Pneumonia (Resolved) Prerenal renal failure (Resolved) Right hand pain (Resolved) Secondary hyperparathyroidism of renal origin (Chronic) Seizure disorder (Chronic) Sinusitis (Resolved) Status post insertion of drug-eluting stent into left anterior descending (LAD) artery (Chronic) Sternal pain (Resolved) Syncope and collapse (Resolved) Syncope and collapse (Resolved) Toenail avulsion (Resolved) Upper gastrointestinal hemorrhage (Acute) Upper respiratory infection (Resolved) Urinary tract infection (Resolved) UTI (urinary tract infection) (Resolved) Vasovagal syncope (Resolved) Surgical History (Updated 10/14/19 @ 20:44 by Nick Moscoso DO) History of cataract extraction with lens replacement (Acute) Status cardiac pacemaker (Chronic) seen by Dr. Whitman [facility] Cardiology Social History Smoking Status: Never smoker Alcohol Intake Frequency: does not drink Substance Use: does not use Exam General Limitations: no limitations Head Head: atraumatic, normocephalic and normal inspection Eye Eye: Present normal appearance; Absent conjunctival injection ENT ENT: Present normal oropharynx and mucous membranes moist Neck Neck: Present normal inspection Chest Chest: Present normal inspection and symmetric chest wall rise Respiratory Respiratory: Present normal lung sounds bilaterally; Absent respiratory distress, rales/crackles, wheezes and stridor Cardiovascular Cardiovascular: Present regular rate, normal rhythm and normal heart sounds Extremities Extremities: Present normal inspection and normal capillary refill Neurological Neurological: Present alert and oriented X3 Psychiatric Psychiatric: Present agitated Skin Skin: Present warm, dry, intact and normal color; Absent cool, diaphoretic and rash Course Course Course Narrative: At 1410 I did speak with Dr[address] arnold. She agrees the patient should probably be admitted and she be happy to consult. She is due for dialysis tomorrow morning. We do have a call into the hospitalist. @ 1438, hospitalist Dr. Pritchett agrees to accept pt Vital Signs Vital signs: Vital Signs Temperature 97.6 F 01/18/20 11:34 Pulse Rate 68 01/18/20 11:34 Respiratory Rate 16 01/18/20 11:34 Blood Pressure 152/69 01/18/20 11:34 Pulse Oximetry (%) 93 01/18/20 11:34 Temperature 97.6 F 01/18/20 11:34 Pulse Rate 60 01/18/20 13:31 Respiratory Rate 16 01/18/20 14:16 Blood Pressure 170/60 01/18/20 14:16 Pulse Oximetry (%) 92 01/18/20 14:16 [facility] Lab Data Result diagrams: 01/18/20 11:53 01/18/20 11:53 Labs: Lab Results 01/18/20 01/18/20 Range/Units 11:53 11:53 WBC 4.9 (4.50-11.00) K/mcL RBC 3.02 L (3.59-5.38) M/mcL Hgb 9.5 L (11.2-15.7) g/dL Hct 28.1 L (34.1-44.9) % POC Hct 31.0 L (36.0-48.0) % MCV 93.0 (80.0-100.0) fL MCH 31.5 (26.0-34.0) pg MCHC 33.8 (31.0-36.0) g/dL RDW 14.8 H (11.5-14.5) % Plt Count 147 (140-440) K/mcL MPV 10.9 H (7.4-10.4) fL Gran % 78.6 H (38.0-78.0) % Lymph % (Auto) 10.8 L (15.5-49.0) % [place] % (Auto) 6.3 (1.0-12.0) % Eos % (Auto) 3.9 (0.0-7.0) % Baso % (Auto) 0.4 (0.0-2.0) % Gran # 3.88 (1.80-8.00) K/mcL Lymph # (Auto) 0.53 L (1.50-4.80) K/mcL [place] # (Auto) 0.31 (0.10-0.90) K/mcL Eos # (Auto) 0.19 (0.00-0.70) K/mcL Baso # (Auto) 0.02 (0.00-0.30) K/mcL POC Sodium 121 L (133-145) mmol/L Sodium 119 L* (133-145) mmol/L POC Potassium 4.6 (3.3-5.1) mmol/L Potassium 4.5 (3.3-5.1) mmol/L POC Chloride 85 L (96-108) mmol/L Chloride 79 L (96-108) mmol/L Carbon Dioxide 20 L (22-30) mmol/L POC Total CO2 22 (22-30) mmol/L Anion Gap 20.0 H (8-16) POC BUN 77 H (8-23) mg/dl BUN 69 H (8-23) mg/dl Creatinine 3.8 H (0.6-1.1) mg/dl POC Creatinine 3.9 H (0.6-1.1) mg/dl GFR Calculation 11 Glucose 710 H* (70-105) mg/dL POC Glucose 672 H* (70-105) mg/dL Calcium 8.6 (8.6-10.4) mg/dl POC WB Ioniz Calcium 1.13 L (1.16-1.32) mmol/L Total Bilirubin 0.5 (0.0-1.0) mg/dL AST 20 (0-37) U/l ALT 19 (0-40) U/l Alkaline Phosphatase 182 H (39-117) U/L Total Protein 6.6 (5.9-8.4) gm/dL Albumin 4.0 (3.2-5.2) gm/dL Globulin 2.6 (2.2-3.7) gm/dL Albumin/Globulin Ratio 1.5 (1.0-2.3) Beta-Hydroxybutyrate 0.24 (< 0.27) mmol/L Discharge Plan Patient/Caregiver Discharge Instructions Pt seen by CLINICAL SERVICES DIRECTOR/PA only: Yes Clinical Impression: Hyperglycemia, Hyponatremia, Medication refill, Diabetes, Chronic kidney disease (CKD), Dialysis patient Prescriptions: No Action albuterol sulfate [Ventolin HFA] 90 mcg/actuation HFA aerosol inhaler 1 puff INHALATION Q6H PRN (Reason: shortness of breath or wheezing) Qty: 8 RF: 0 B complex 11-folic acid 1 mg-C 100 mg-biotin 300 mcg-zinc 50 mg tablet [id number] cb-bg-[id number]-mg tablet 1 tab PO QDAY Qty: 90 RF: 4 (DME) blood-glucose meter Misc See Rx Instructions .ROUTE .MEDSUPPLY Qty: 1 RF: 0 sevelamer carbonate 800 mg tablet 1,600 mg PO TID Qty: 180 RF: 6 levetiracetam 500 MG tablet 500 mg PO BID RF: 0 clopidogrel 75 MG tablet 75 mg PO DAILY RF: 0 acetaminophen 325 MG tablet 650 mg PO Q4-6HP PRN (Reason: Pain/Fever > 101) Qty: 0 RF: 0 Accu-Chek 1 EACH strip 1 each FS ACHS RF: 0 insulin lispro 1 UNIT/0.01 ML unit See Protocol units SQ ACHS RF: 0 tkmzomqw-rxgutxe-zablmic 31 GM gel 15 gm PO PRN PRN (Reason: Hypoglycemia) RF: 0 carvedilol 6.25 MG tablet 2 tablet PO BID RF: 0 gabapentin 600 MG tablet 600 mg PO TID RF: 0 atorvastatin 80 MG tablet 80 mg PO DAILY RF: 0 loperamide 2 MG capsule 2 mg PO BIDP PRN (Reason: Diarrhea) RF: 0 captopril 12.5 MG tablet 12.5 mg PO TID Qty: 90 RF: 0 benzonatate 100 MG capsule 100 mg PO TIDP PRN (Reason: Cough) Qty: 20 RF: 0 clonidine HCl 0.1 MG tablet 0.2 mg PO BID RF: 0 fluticasone propionate 9.9 ML spray,suspension 2 spray intranasal DAILY RF: 0 hydrocodone-acetaminophen 1 TAB tablet 1 tab PO QID RF: 0 levothyroxine 125 MCG tablet 125 mcg PO DAILY RF: 0 lidocaine-prilocaine 1 EACH kit 1 each TP MOWEFR RF: 0 polyethylene glycol 3350 17 GM packet 17 gm PO DAILYP PRN (Reason: Constipation) RF: 0 nitroglycerin 0.4 MG tablet, sublingual 0.4 mg SL Q5M PRN (Reason: Chest Pain) RF: 0 sennosides 8.6 MG capsule 2 tab PO DAILY RF: 0 polymyxin B sulf-trimethoprim 10 ML drops 1 gtt BOTH EYES Q6HP PRN (Reason: Dry Eye(S)) RF: 0 insulin lispro 1 UNIT/0.01 ML unit 4 unit SQ TIDAC RF: 0 polyethylene glycol 1450(bulk) 1 GM powder 1 gm MC DAILY RF: 0 insulin glargine 1 UNIT/0.01 ML unit 6 unit SQ BID Qty: 1 RF: 0 insulin lispro 1 UNIT/0.01 ML unit See Protocol unit SQ ACHS Qty: 1 RF: 0 zolpidem 5 MG tablet 5 mg PO ONCE RF: 0 albuterol sulfate 1 PUFF inhaler 2 puff INH Q4-6HP PRN (Reason: Shortness Of Breath) RF: 0 B complex-vitamin C-folic acid 1 EACH tablet 1 tab PO DAILY RF: 0 amlodipine 5 MG tablet 5 mg PO ONCE RF: 0 furosemide 80 MG tablet 80 mg PO BIDD RF: 0 nitrofurantoin monohyd/m-cryst 100 MG capsule 100 mg PO BID Qty: 14 RF: 0 Follow up with: Katy Arnold MD [Physician] - Gifty Chisholm ARNP [Primary Care Provider] - Patient Disposition: Xfer As Outpt/Obs ([facility]) Condition: Fair
[2020-01-18] MEDS ORDERED: SENNOSIDES 1 TABLET PO PRN (14:41)
[2020-01-18] MEDS ORDERED: ONDANSETRON 4 MG/2 ML VIAL IV PRN (14:41)
[2020-01-18] MEDS ORDERED: BISACODYL 10 MG SUPP.RECT PR PRN (14:41)
[2020-01-18] MEDS ORDERED: cefTRIAXone 2 GM in DEXTROSE 5% IN WATER 50 ML IV SCH (14:45)
[2020-01-18] MEDS ORDERED: IPRATROPIUM/ALBUTEROL 3 ML AMPUL.NEB NEB PRN (14:47)
[2020-01-18 16:31] LABS: Blood Urea Nitrogen 69 mg/dl (8-23); Calcium 8.4 mg/dl (8.6-10.4); Carbon Dioxide 19 mmol/L (22-30); Glomerular Filtration Rate 12
[2020-01-18 16:36] LABS: Chloride 85 mmol/L (96-108); Glucose 478 mg/dL (70-105)
[2020-01-18] MEDS: 0.9 % SODIUM CHLORIDE 250 ML IV SCH (18:00)
[2020-01-18] MEDS: cefTRIAXone 2 GM in DEXTROSE 5% IN WATER 50 ML IV SCH (18:00)
[2020-01-18] MEDS: 0.45 % SODIUM CHLORIDE 1,000 ML IV SCH (18:30)
[2020-01-18] MEDS: HYDROcodone/APAP 5/325MG TABLET PO SCH (21:49)
[2020-01-18] MEDS: HEPARIN 5,000 UNIT/ML VIAL SQ SCH (21:49)
[2020-01-18] MEDS: levETIRAcetam 500 MG TABLET PO SCH (21:49)
[2020-01-18] MEDS: SEVELAMER 800 MG TABLET PO SCH (21:52)
[2020-01-18] MEDS: 0.9 % SODIUM CHLORIDE 10 ML SYRINGE IV SCH (22:08)
[2020-01-18 22:21] LABS: Blood Urea Nitrogen 71 mg/dl (8-23); Calcium 8.3 mg/dl (8.6-10.4); Carbon Dioxide 21 mmol/L (22-30); Chloride 89 mmol/L (96-108); Glomerular Filtration Rate 11; Glucose 268 mg/dL (70-105)
--- NOTE | 2020-01-18 22:59 | Internal Med History&Physical ---
HPI History of Present Illness Patient information: Note initiated : 01/18/20 at 10:56 pm Service Date, if different from initiated Date: [] Patient: Shanda Rhodes 74 y/o F admitted on 01/18/20 for here for refill of novolog. Chief Complaint: [] History of present illness: 74-year-old female presented to the ED to obtain insulin prescriptions. Patient stated she usually takes 12 units and she only had 8 units left in her blood sugar readings were high at home. Patient was evaluated in the ED she denied any respiratory symptoms no abdominal symptoms her blood glucose level was more than 700. Her chemistry panel showed sodium of 119. Unable to provide any urine samples no other source of infection identified. Patient appears to be slightly drowsy. Patient's daughter accompanied the patient unable to help the patient at home and reported patient has been very weak and tired and they are going out of town. Patient blood work-up showed evidence of anion gap and probable DKA patient was given 10 units of regular insulin infusion followed by insulin drip and admitted for DKA. Constitutional Constitutional: Present weakness; Absent anorexia, increased appetite and night sweats EENT Eyes: Absent discharge, dry eye, irritation and loss of vision Ears: Absent decreased hearing, ear pain and tinnitus Nose, mouth and throat: Present dizziness; Absent epistaxis and headache(s) Cardiovascular Cardiovascular: Present leg edema; Absent acrocyanosis, chest pain with activity and orthopnea Respiratory Respiratory: Present dyspnea on exertion; Absent cough, stridor and excessive phlegm production Gastrointestinal Gastrointestinal: Absent abdominal pain, bloating and coffee ground emesis Genitourinary Genitourinary: Absent difficulty urinating, difficulty voiding and dyspareunia Musculoskeletal Musculoskeletal: Present back pain and muscle weakness; Absent abnormal gait Neurological Neurological: Present dizziness; Absent abnormal gait, abnormal speech and confusion Psychiatric Psychiatric: Absent behavioral changes and confusion [facility] Medical History (Updated 01/18/20 @ 14:31 by KEYA Camilo) Acute exacerbation of CHF (congestive heart failure) (Resolved) Acute kidney injury superimposed on chronic kidney disease (Resolved) Acute on chronic renal failure (Resolved) Acute renal failure superimposed on stage 3 chronic kidney disease (Resolved) Acute respiratory failure with hypoxia (Resolved) AF (paroxysmal atrial fibrillation) (Chronic) Altered mental status (Resolved) Altered mental status (Resolved) Anemia (Resolved) Anemia due to end stage renal disease (Chronic) Anemia in ESRD (end-stage renal disease) (Chronic) Anemia in stage 3 chronic kidney disease (Resolved) Artificial cardiac pacemaker (Chronic) defib??? Blepharitis of eyelid of right eye (Resolved) CAD (coronary artery disease) (Chronic) Chest pain (Resolved) CHF (congestive heart failure) (Acute) Chronic anticoagulation (Chronic) clopidrogel Chronic hyponatremia (Chronic) Chronic narcotic use (Resolved) CKD (chronic kidney disease), stage III (Resolved) CKD (chronic kidney disease), stage IV (Chronic) Colitis (Resolved) Community acquired pneumonia (Resolved) Contusion of left hand including fingers (Resolved) Contusion of left hip and thigh (Resolved) Contusion of rib on right side (Resolved) Contusion of right hand including fingers (Resolved) CVA (cerebral vascular accident) (Resolved) Dehydration (Resolved) Dementia (Chronic) Diabetes mellitus type 2 with complications (Chronic) Diabetic ketoacidosis associated with type 2 diabetes mellitus (Resolved) Diabetic peripheral neuropathy (Chronic) severe; AFO braces bilateral feet/ankles DNR no code (do not resuscitate) (Chronic) End-stage renal disease on hemodialysis (Chronic) Fatigue (Resolved) Fever and chills (Resolved) Hematochezia (Acute) Hematoma (Resolved) Hemicrania (Resolved) History of recurrent UTI (urinary tract infection) (Chronic) Hyperglycemia due to type 2 diabetes mellitus (Chronic) Hypertensive renal disease (Chronic) BP at goal 138/66 ct coreg 6.25mg bid ct furosemide 20mg po daily follow low sodium diet will add losartan next visit if renal function is stable and she has no further complications Hypoglycemia (Resolved) Hypoglycemia (Resolved) Hypoglycemia (Resolved) Hypoglycemia (Resolved) Hyponatremia (Chronic) Hypothyroidism, acquired (Chronic) Hypoxia (Resolved) Hypoxia (Resolved) Injury of right rotator cuff (Resolved) Left hand pain (Resolved) Lower gastrointestinal hemorrhage (Chronic) Metabolic acidosis (Resolved) Myoclonus (Chronic) Pneumonia (Resolved) Pneumonia (Resolved) Prerenal renal failure (Resolved) Right hand pain (Resolved) Secondary hyperparathyroidism of renal origin (Chronic) Seizure disorder (Chronic) Sinusitis (Resolved) Status post insertion of drug-eluting stent into left anterior descending (LAD) artery (Chronic) Sternal pain (Resolved) Syncope and collapse (Resolved) Syncope and collapse (Resolved) Toenail avulsion (Resolved) Upper gastrointestinal hemorrhage (Acute) Upper respiratory infection (Resolved) Urinary tract infection (Resolved) UTI (urinary tract infection) (Resolved) Vasovagal syncope (Resolved) Surgical History (Updated 10/14/19 @ 20:44 by Nick Moscoso DO) History of cataract extraction with lens replacement (Acute) Status cardiac pacemaker (Chronic) seen by Dr. Whitman [facility] Cardiology Social History (Updated 02/24/19 @ 15:01 by Ida Sarmiento [facility]) smoking status: Former smoker alcohol intake frequency: does not drink substance use type: does not use MEDS/ALLERGIES Home Medications and Allergies Home Medications Medication Instructions Recorded Confirmed Type levetiracetam 500 mg PO BID 11/10/16 01/18/20 History clopidogrel 75 mg PO DAILY 11/20/16 10/08/19 History acetaminophen 650 mg PO Q4-6HP PRN #0 tab 11/24/16 01/18/20 Rx Accu-Chek 1 each FS ACHS strip 09/03/17 10/08/19 Rx insulin lispro See Protocol SQ ACHS unit 09/03/17 10/08/19 Rx atorvastatin 80 mg PO DAILY 03/04/19 10/08/19 History carvedilol 2 tablet PO BID 03/04/19 10/08/19 History gabapentin 300 mg PO BID 03/04/19 01/18/20 History loperamide 2 mg PO BIDP PRN 03/04/19 10/08/19 History captopril 12.5 mg PO TID #90 tab 03/09/19 10/08/19 Rx hydrocodone-acetaminophen 1 tab PO QHS 07/09/19 01/18/20 History levothyroxine 125 mcg PO DAILY 07/09/19 01/18/20 History lidocaine-prilocaine 1 each TP MOWEFR 07/09/19 10/08/19 History nitroglycerin 0.4 mg SL Q5M PRN 07/09/19 01/18/20 History polyethylene glycol 3350 17 gm PO DAILYP PRN 07/09/19 10/08/19 History polymyxin B sulf-trimethoprim 1 gtt BOTH EYES Q6HP PRN 07/09/19 10/08/19 History sennosides 2 tab PO DAILY 07/09/19 10/08/19 History insulin lispro 4 unit SQ TIDAC 07/27/19 10/08/19 History polyethylene glycol 1450(bulk) 1 gm MC DAILY 07/27/19 10/08/19 History insulin lispro See Protocol SQ ACHS #1 vial 07/28/19 10/08/19 Rx B complex-vitamin C-folic acid 1 tab PO DAILY 09/29/19 10/08/19 History zolpidem 5 mg PO ONCE 09/29/19 10/08/19 History furosemide 80 mg PO BIDD 10/08/19 01/18/20 History blood-glucose meter #1 each 11/26/19 Rx sevelamer carbonate 800 mg tablet 1,600 mg PO TID #180 tab 12/10/19 Rx Dialyvite 800 with Zinc 15 1 tab PO DAILY 01/18/20 01/18/20 History atorvastatin 80 mg PO QHS 01/18/20 01/18/20 History pantoprazole 40 mg PO DAILY 01/18/20 01/18/20 History sevelamer carbonate 1,600 mg PO TID 01/18/20 01/18/20 History Allergies Allergy/AdvReac Type Severity Reaction Status Date / Time lactose AdvReac Mild Diarrhea Verified 01/18/20 11:36 EXAM Constitutional Vitals: Temp Pulse Resp BP Pulse Ox 97.7 F 60 16 158/62 99 01/18/20 16:05 01/18/20 19:22 01/18/20 16:24 01/18/20 17:02 01/18/20 19:22 General appearance: mild distress Head Head exam: Present atraumatic, normal inspection and normocephalic Eye Eye exam: Absent nystagmus, periorbital swelling, periorbital tenderness and scleral icterus ENT ENT exam: Present mucous membranes dry and normal oropharynx Neck Neck exam: Present normal inspection; Absent lymphadenopathy and tenderness Respiratory Respiratory exam: Present rales and wheezes; Absent accessory muscle use and respiratory distress Cardiovascular Cardiovascular exam: Absent irregular rhythm, JVD, +S3 and +S4 GI/Abdominal GI/Abdominal exam: Present diminished bowel sounds and distended; Absent guarding and tenderness Neurological Exam Neurological exam: Present alert and oriented X3; Absent altered and motor sensory deficit Psychiatric Psychiatric exam: Absent agitated, anxious, depressed and suicidal ideation DATA Data Completed and Pending Labs on day of discharge: Labs from last 24 hours 06/01/18/20 01/18/20 20:50 15:05 11:53 WBC 4.9 RBC 3.02 L Hgb 9.5 L Hct 28.1 L POC Hct MCV 93.0 MCH 31.5 MCHC 33.8 RDW 14.8 H Plt Count 147 MPV 10.9 H Gran % 78.6 H Lymph % (Auto) 10.8 L [place] % (Auto) 6.3 Eos % (Auto) 3.9 Baso % (Auto) 0.4 Gran # 3.88 Lymph # (Auto) 0.53 L [place] # (Auto) 0.31 Eos # (Auto) 0.19 Baso # (Auto) 0.02 POC Sodium Sodium 124 L 123 L POC Potassium Potassium 4.5 4.5 POC Chloride Chloride 89 L 85 L Carbon Dioxide 21 L 19 L POC Total CO2 Anion Gap 14.0 19.0 H POC BUN BUN 71 H 69 H Creatinine 3.9 H 3.6 H POC Creatinine GFR Calculation 11 12 Glucose 268 H 478 H* POC Glucose Calcium 8.3 L 8.4 L POC WB Ioniz Calcium Total Bilirubin AST ALT Alkaline Phosphatase Total Protein Albumin Globulin Albumin/Globulin Ratio Beta-Hydroxybutyrate 01/18/20 11:53 WBC RBC Hgb Hct POC Hct 31.0 L MCV MCH MCHC RDW Plt Count MPV Gran % Lymph % (Auto) [place] % (Auto) Eos % (Auto) Baso % (Auto) Gran # Lymph # (Auto) [place] # (Auto) Eos # (Auto) Baso # (Auto) POC Sodium 121 L Sodium 119 L* POC Potassium 4.6 Potassium 4.5 POC Chloride 85 L Chloride 79 L Carbon Dioxide 20 L POC Total CO2 22 Anion Gap 20.0 H POC BUN 77 H BUN 69 H Creatinine 3.8 H POC Creatinine 3.9 H GFR Calculation 11 Glucose 710 H* POC Glucose 672 H* Calcium 8.6 POC WB Ioniz Calcium 1.13 L Total Bilirubin 0.5 AST 20 ALT 19 Alkaline Phosphatase 182 H Total Protein 6.6 Albumin 4.0 Globulin 2.6 Albumin/Globulin Ratio 1.5 Beta-Hydroxybutyrate 0.24 A/P Narrative A/P Narrative: Narrative: Diabetic ketoacidosis History of type 2 diabetes and noncompliance No evidence of active infection Urine samples pending Underlying ESRD on dialysis and pending dialysis tomorrow Started on insulin infusion and insulin drip Titrate the IV fluids and electrolytes Check BMP every 6 hourly Hyponatremia-probable pseudohyponatremia Patient has chronic hyponatremia with a sodium around 130 Monitor sodium after correcting the glucose NS-IV fluid resuscitation she received 2 L in the ED next End-stage renal disease ER physician discussed with on-call real estate director and planning for dialysis tomorrow No evidence of obvious hypervolemia or respiratory failure Potassium 4.5 History of CHF Patient is pending dialysis tomorrow We will hold her home medications Restart blood pressure medications History of CAD Continue her home medications Anemia Monitor hemoglobin History of CVA Continue home medications DVT prophylaxis-subcu heparin CODE STATUS-DNR Expected length of stay-1-2 midnights Total critical care time [id number] Time Spent With Patient Time: Total time spent is greater than 50% in coordination of care (as documented) at patient's floor/unit and/or counseling patient: QUALITY Stroke Symptom Onset Unknown: No VTE Deep Vein Thrombosis/Pulmonary Embolism Present on Admission: No
[2020-01-19] MEDS ORDERED: DEXTROSE 50% 50 ML VIAL IV ONE ×2 (01:56→02:01)
[2020-01-19] MEDS: 0.45 % SODIUM CHLORIDE 1,000 ML IV SCH ×2 (05:24→17:53)
[2020-01-19] MEDS: 0.9 % SODIUM CHLORIDE 10 ML SYRINGE IV SCH ×3 (05:25→21:10)
[2020-01-19 05:54] LABS: Hematocrit 26.9 % (34.1-44.9); Hemoglobin 9.2 g/dL (11.2-15.7); Mean Cell Volume 92.1 fL (80.0-100.0); Mean Corpuscular HGB Conc 34.2 g/dL (31.0-36.0); Mean Platelet Volume 10.7 fL (7.4-10.4); Platelet Count 143 K/mcL (140-440); RBC 2.92 M/mcL (3.59-5.38); Red Cell Distribution Width 14.9 % (11.5-14.5); WBC 5.7 K/mcL (4.50-11.00)
[2020-01-19 06:15] LABS: Blood Urea Nitrogen 73 mg/dl (8-23); Calcium 8.5 mg/dl (8.6-10.4); Carbon Dioxide 21 mmol/L (22-30); Glomerular Filtration Rate 11; Glucose 155 mg/dL (70-105)
[2020-01-19 06:17] LABS: Chloride 88 mmol/L (96-108)
[2020-01-19] MEDS: INSULIN LISPRO 1 UNIT/0.01 ML UNIT SQ SCH ×4 (07:30→21:08)
[2020-01-19 07:33] LABS: Anisocytosis FEW (NONE SEEN); Band Neutrophils % 1 % (0-10); Eosinophils % (Manual) 5 % (0-7); Lymphocytes % 7 % (15-49); Monocytes % (Manual) 5 % (1-12); Ovalocytes FEW (NONE SEEN); Platelet Estimate NORMAL (NORMAL); RBC Fragments RARE (NONE SEEN); RBC Morphology ABNORM (NORMAL); Segmented Neutrophils % 82 % (38-78)
[2020-01-19] MEDS: LEVOTHYROXINE 125 MCG TABLET PO SCH (07:45)
[2020-01-19] MEDS: PANTOPRAZOLE 40 MG TABLET PO SCH (07:45)
[2020-01-19] MEDS: ACETAMINOPHEN 325 MG TABLET PO PRN (07:47)
[2020-01-19] MEDS: SEVELAMER 800 MG TABLET PO SCH ×3 (08:20→17:57)
[2020-01-19] MEDS ORDERED: ENOXAPARIN 40 MG/0.4 ML SYRINGE SQ SCH (09:00)
[2020-01-19] MEDS: 0.9 % SODIUM CHLORIDE 250 ML IV SCH (09:09)
[2020-01-19] MEDS: cefTRIAXone 2 GM in DEXTROSE 5% IN WATER 50 ML IV SCH (09:18)
[2020-01-19] MEDS: HEPARIN 5,000 UNIT/ML VIAL SQ SCH ×2 (09:19→21:10)
[2020-01-19] MEDS: INSULIN GLARGINE, HUMAN 1 UNIT/0.01 ML SQ SCH ×2 (09:19→21:09)
[2020-01-19 11:08] LABS: Blood Urea Nitrogen 75 mg/dl (8-23); Calcium 8.4 mg/dl (8.6-10.4); Carbon Dioxide 19 mmol/L (22-30); Glomerular Filtration Rate 10; Glucose 236 mg/dL (70-105)
[2020-01-19 11:12] LABS: Chloride 89 mmol/L (96-108)
[2020-01-19] MEDS: CARVEDILOL 12.5 MG TABLET PO SCH ×2 (13:17→18:28)
[2020-01-19] MEDS: levETIRAcetam 500 MG TABLET PO SCH ×2 (14:01→21:09)
[2020-01-19] MEDS: CAPTOPRIL 12.5 MG TABLET PO SCH ×3 (14:05→21:09)
[2020-01-19 17:11] LABS: Calcium 8.3 mg/dl (8.6-10.4); Glucose 216 mg/dL (70-105)
[2020-01-19 17:12] LABS: Blood Urea Nitrogen 22 mg/dl (8-23); Carbon Dioxide 24 mmol/L (22-30); Chloride 89 mmol/L (96-108); Glomerular Filtration Rate 29
--- NOTE | 2020-01-19 17:24 | Nephrology Consult Note ---
HPI Data of Consult Patient: known to practice within the last 3 years Consult date: 01/19/20 Primary Care Provider: Gifty Chisholm Consult Narrative Chief complaint: Ran out of insulin with expected results Reason for consult: ESRD History of present illness: Patient has end-stage renal disease and is dialyzed Sunday and Sunday in the [facility] dialysis unit with Dr. Kellie Hinkle serving as her primary real estate representative. Her last dialysis treatment as an outpatient was on January 15, she runs on a 3K bath, 3 hours, dry weight of 59 kg. She currently receives 80 mcg of Aranesp on Wednesdays and uses heparin with her dialysis treat. According to the hospitalist note Patient was evaluated in the ED she denied any respiratory symptoms no abdominal symptoms her blood glucose level was more than 700. Her chemistry panel showed sodium of 119. Unable to provide any urine samples no other source of infection identified. Patient appears to be slightly drowsy. Patient's daughter accompanied the patient unable to help the patient at home and reported patient has been very weak and tired and they are going out of town. Patient blood work-up showed evidence of anion gap and probable DKA patient was given 10 units of regular insulin infusion followed by insulin drip and admitted for DKA. As is the case with most dialysis patients they are protected from developing true DKA as they lack the physiologic ability to have a osmotic induced diuresis and thus never become volume contracted and therefore rarely develop true DKA. This patient's normal beta hydroxybutyrate level argues that this is the case here and this is more of a hyperosmolar state than anything else due to lack of insulin. Her blood sugar improves her sodium should likewise improve with the osmotic shifts taking place and I suspect from a metabolic point of view she will be ready to go in the next 24-hour. Problems with weakness are often nonspecific and seen in patients with renal replacement therapy will require large amounts of ultrafiltration due to the inability to control her fluid intake, poorly controlled diabetes, anemia of chronic kidney disease, uncontrolled hyperparathyroidism and advanced coronary disease all of which her at play in this patient. cc:: CC: Larisa Pritchett MD Review of Systems All systems: reviewed and no additional remarkable complaints except as stated Constitutional Constitutional: Present as per HPI, fatigue, lethargy and weakness EENT Eyes: Present decreased night vision Cardiovascular Cardiovascular: Present edema and other Additional comments: PPM Respiratory Additional comments: NTA Gastrointestinal Gastrointestinal: Present bloating Genitourinary Additional comments: Oligoanuria due to long standing ESRD Integumentary Integumentary: Present dry skin and unusual bruising Neurological Neurological: Present abnormal gait and weakness Psychiatric Psychiatric: Present irritability Endocrine Endocrine: Present heat intolerance Hematologic/Lymphatic Hematologic/Lymphatic: Present easy bleeding and other Additional comments: Anemia of ESRD on Aranesp Allergic/Immunologic Additional comments: N/A [facility] Medical History (Updated 01/19/20 @ 22:17 by Palmer Farris MD) Acute exacerbation of CHF (congestive heart failure) (Resolved) Acute kidney injury superimposed on chronic kidney disease (Resolved) Acute on chronic renal failure (Resolved) Acute renal failure superimposed on stage 3 chronic kidney disease (Resolved) Acute respiratory failure with hypoxia (Resolved) AF (paroxysmal atrial fibrillation) (Chronic) Altered mental status (Resolved) Altered mental status (Resolved) Anemia (Resolved) Anemia due to end stage renal disease (Chronic) Anemia in ESRD (end-stage renal disease) (Chronic) Aranesp 80 ug / wed Anemia in stage 3 chronic kidney disease (Resolved) Artificial cardiac pacemaker (Chronic) defib??? Blepharitis of eyelid of right eye (Resolved) CAD (coronary artery disease) (Chronic) Chest pain (Resolved) CHF (congestive heart failure) (Acute) Chronic anticoagulation (Chronic) clopidrogel Chronic hyponatremia (Chronic) Chronic narcotic use (Resolved) CKD (chronic kidney disease), stage III (Resolved) CKD (chronic kidney disease), stage IV (Chronic) Colitis (Resolved) Community acquired pneumonia (Resolved) Contusion of left hand including fingers (Resolved) Contusion of left hip and thigh (Resolved) Contusion of rib on right side (Resolved) Contusion of right hand including fingers (Resolved) CVA (cerebral vascular accident) (Resolved) Dehydration (Resolved) Dementia (Chronic) Diabetes mellitus type 2 with complications (Chronic) Allowed herself to run low or out of Insulin Diabetic ketoacidosis associated with type 2 diabetes mellitus (Resolved) Diabetic peripheral neuropathy (Chronic) severe; AFO braces bilateral feet/ankles DNR no code (do not resuscitate) (Chronic) End-stage renal disease on hemodialysis (Chronic) MWF Fatigue (Resolved) Fever and chills (Resolved) Hematochezia (Acute) Hematoma (Resolved) Hemicrania (Resolved) History of recurrent UTI (urinary tract infection) (Chronic) Hyperglycemia due to type 2 diabetes mellitus (Chronic) Hypertensive renal disease (Chronic) BP at goal 138/66 ct coreg 6.25mg bid ct furosemide 20mg po daily follow low sodium diet will add losartan next visit if renal function is stable and she has no further complications Hypoglycemia (Resolved) Hypoglycemia (Resolved) Hypoglycemia (Resolved) Hypoglycemia (Resolved) Hyponatremia (Chronic) Result of hyperglycemia with H2O shift to blunt the rise in serum osm but case "pseudohyponatremia" Hypothyroidism, acquired (Chronic) Hypoxia (Resolved) Hypoxia (Resolved) Injury of right rotator cuff (Resolved) Left hand pain (Resolved) Lower gastrointestinal hemorrhage (Chronic) Metabolic acidosis (Resolved) Myoclonus (Chronic) Pneumonia (Resolved) Pneumonia (Resolved) Prerenal renal failure (Resolved) Right hand pain (Resolved) Secondary hyperparathyroidism of renal origin (Chronic) Seizure disorder (Chronic) Sinusitis (Resolved) Status post insertion of drug-eluting stent into left anterior descending (LAD) artery (Chronic) Sternal pain (Resolved) Syncope and collapse (Resolved) Syncope and collapse (Resolved) Toenail avulsion (Resolved) Upper gastrointestinal hemorrhage (Acute) Upper respiratory infection (Resolved) Urinary tract infection (Resolved) UTI (urinary tract infection) (Resolved) Vasovagal syncope (Resolved) Surgical History (Updated 10/14/19 @ 20:44 by Nick Moscoso DO) History of cataract extraction with lens replacement (Acute) Status cardiac pacemaker (Chronic) seen by Dr. Whitman [facility] Cardiology Social History (Updated 02/24/19 @ 15:01 by Ida Sarmiento [facility]) smoking status: Former smoker alcohol intake frequency: does not drink substance use type: does not use MEDS/ALLERGIES Home Medications and Allergies Home Medications Medication Instructions Recorded Confirmed Type levetiracetam 500 mg PO BID 11/10/16 01/18/20 History acetaminophen 650 mg PO Q4-6HP PRN #0 tab 11/24/16 01/18/20 Rx Accu-Chek 1 each FS ACHS strip 09/03/17 10/08/19 Rx loperamide 2 mg PO BIDP PRN 03/04/19 01/19/20 History captopril 12.5 mg PO TID #90 tab 03/09/19 01/19/20 Rx hydrocodone-acetaminophen 1 tab PO QHS 07/09/19 01/19/20 History levothyroxine 125 mcg PO DAILY 07/09/19 01/18/20 History lidocaine-prilocaine 1 each TP MOWEFR 07/09/19 01/19/20 History nitroglycerin 0.4 mg SL Q5M PRN 07/09/19 01/18/20 History polymyxin B sulf-trimethoprim 1 gtt BOTH EYES Q6HP PRN 07/09/19 01/19/20 History sennosides 2 tab PO DAILY 07/09/19 01/19/20 History B complex-vitamin C-folic acid 1 tab PO DAILY 09/29/19 01/19/20 History blood-glucose meter #1 each 11/26/19 Rx Dialyvite 800 with Zinc 15 1 tab PO DAILY 01/18/20 01/19/20 History atorvastatin 80 mg PO QHS 01/18/20 01/18/20 History pantoprazole 40 mg PO DAILY 01/18/20 01/18/20 History sevelamer carbonate 1,600 mg PO TID 01/18/20 01/19/20 History gabapentin 300 mg PO BID 01/19/20 01/19/20 History insulin aspart U-100 See Rx Instructions .ROUTE .COMPLEX 01/19/20 01/19/20 History Allergies Allergy/AdvReac Type Severity Reaction Status Date / Time lactose AdvReac Mild Diarrhea Verified 01/18/20 11:36 Physical Examination Vital Signs Vital signs: Temp Pulse Resp BP Pulse Ox 37.2 C 59 L 15 172/53 97 01/19/20 16:01 01/19/20 14:46 01/19/20 16:01 01/19/20 16:01 01/19/20 16:01 General Appearance General appearance: chronically ill, fatigue and frail EENT EENT: ATNC, PERRL and mucous membranes dry Neck Neck: no JVD, no carotid bruit and supple Respiratory Respiratory: kyphosis, course breath sounds and rhonchi Cardiovascular Cardiology: no murmurs, no rub, edema, regular rate (100 % paced) and normal S1 Gastrointestinal Gastrointestinal: normoactive bowel sounds, no tenderness and no guarding Integumentary Integumentary: no rash and ecchymotic Neurologic Neurologic: no focal deficit, no asterixis, alert and oriented x3 and strength 5/5 (Diffuse weakness 4/5) Musculoskeletal Musculoskeletal: no deformities and no clubbing Psychiatric Psychiatric: agitated Results Lab Results Result Diagrams: 01/19/20 04:50 01/19/20 15:02 Lab results: Most recent lab results Calcium 8.3 mg/dl (8.6-10.4) L 01/19/20 15:02 Magnesium 2.1 mg/dL (1.6-2.5) 01/19/20 04:50 A/P Assessment and plan (1) 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 Comment: Allowed herself to run low or out of Insulin (2) End-stage renal disease on hemodialysis: Status: Chronic Comment: MWF (3) Anemia in ESRD (end-stage renal disease): Status: Chronic Comment: Aranesp 80 ug / wed (4) Hyperosmolar (nonketotic) coma: Status: Acute Comment: Mglucose is correctedonitor as (5) Hyponatremia: Status: Chronic Comment: Result of hyperglycemia with H2O shift to blunt the rise in serum osm but case "pseudohyponatremia" Narrative A/P Narrative: Narrative: Safe for discharge if patient or family can be relied upon to [employer] insulin pens from [facility] Not DKA, more like non-ketotic hyperosmolar state. Bladder sweat w/o signs of true UTI - stop ABx Time Spent With Patient Time: Total time spent is greater than 50% in coordination of care (as documented) at patient's floor/unit and/or counseling patient:
[2020-01-19] MEDS: HYDROcodone/APAP 5/325MG TABLET PO SCH (21:09)
--- NOTE | 2020-01-19 22:21 | Internal Med Progress Note ---
SUBJECTIVE Subjective Patient information: Note initiated : 01/19/20 at 10:19 pm Service Date, if different from initiated Date: [] Patient: Shanda Rhodes 74 y/o F admitted on 01/18/20 for here for refill of novolog. Chief Complaint: [] 74-year-old female presented to the ED to obtain insulin prescriptions. Patient stated she usually takes 12 units and she only had 8 units left in her blood vazquez gar readings were high at home. Patient was evaluated in the ED she denied any respiratory symptoms no abdominal symptoms her blood glucose level was more than 700. Her chemistry panel showed sodium of 119. Unable to provide any urine samples no other source of infection identified. Patient appears to be slightly drowsy. Patient's daughter accompanied the patient unable to help the patient at home and reported patient has been very weak and tired and they are going out of town. Patient blood work-up showed evidence of anion gap and probable DKA patient was given 10 units of regular insulin infusion followed by insulin drip and admitted for DKA. 01/19/2020 Insulin drip was stopped overnight Restarted her home insulin regimen With the Lantus and mealtime insulin and added sliding scale Patient appears to be very weak and unable to be discharged home Patient underwent dialysis today We will monitor her renal function electrolytes Case management involved in looking for placement Review of system- General-denied any chills fever tiredness reported Respiratory-no cough no shortness of breath no sputum production Cardio-no palpitations no dizziness no chest pain Abdominal-denies diarrhea constipation Neuro-denies any focal neuro deficit, no syncope no seizure Interval history: Narrative: Constitutional Vitals: Vital Signs Temp Pulse Resp BP Pulse Ox 98.9 F 65 18 167/65 95 01/19/20 16:01 01/19/20 18:01 01/19/20 18:01 01/19/20 18:01 01/19/20 18:01 Period Temp Pulse Resp BP Sys/Courtney Pulse Ox Last 24 Hr 97.2 F-98.9 F 58-83 0-21 126-189/51-131 87-97 Intake and Output 01/19/20 01/19/20 01/20/20 13:59 21:59 05:59 Intake Total 611 307 Output Total 3250 Balance 611 -2943 Intake & Output: Intake & Output 06/01/19/20 01/20/20 13:59 21:59 05:59 Intake Total 611 307 Output Total 3250 Balance 611 -2943 Intake: IV 191 157 Sodium Chloride 0.9% 250 ml @ 141 157 20 mls/hr IV .[id number] [facility] Rx#: [id number] Rocephin 2 gm In Dextrose 5% in 50 Water 50 ml @ 100 mls/hr IV Q24H [facility] Rx#:[id number] Oral 420 150 Output: Void Amount 250 Hemodialysis UF 3000 Other: Meal Lunch Dinner Percent of Meal Consumed 50% 100% Feeding Ability Independent Independent Urine Appearance Cloudy General appearance: mild distress; no obese Head Head exam: Present atraumatic and normocephalic ENT ENT exam: Present normal exam and normal oropharynx Respiratory Respiratory exam: Present rales; Absent accessory muscle use and respiratory distress Cardiovascular Cardiovascular exam: Absent JVD, +S3 and +S4 GI/Abdominal GI/Abdominal exam: Present normal bowel sounds, soft and distended Neurological Exam Neurological exam: Present alert, CN II-XII intact, oriented X3 and reflexes normal; Absent motor sensory deficit Psychiatric Psychiatric exam: Present flat affect; Absent agitated, anxious and depressed OBJ DATA Labs CBC & Chem 7: 01/19/20 04:50 01/19/20 15:02 Labs: Abnormal Lab Results 01/19/20 01/19/20 01/19/20 15:02 09:32 04:50 RBC 2.92 L Hgb 9.2 L Hct 26.9 L POC Hct RDW 14.9 H MPV 10.7 H Gran % Lymph % (Auto) Lymph # (Auto) Seg Neutrophils % 82 H Lymphocytes % 7 L RBC Morphology Abnorm A Anisocytosis Few A Ovalocytes Few A RBC Fragments Rare A POC Sodium Sodium 127 L 125 L POC Chloride Chloride 89 L 89 L Carbon Dioxide 19 L Anion Gap 17.0 H POC BUN BUN 75 H Creatinine 1.7 H 4.1 H POC Creatinine Glucose 216 H 236 H POC Glucose Calcium 8.3 L 8.4 L POC WB Ioniz Calcium Alkaline Phosphatase 01/19/20 01/18/20 01/18/20 04:50 20:50 15:05 RBC Hgb Hct POC Hct RDW MPV Gran % Lymph % (Auto) Lymph # (Auto) Seg Neutrophils % Lymphocytes % RBC Morphology Anisocytosis Ovalocytes RBC Fragments POC Sodium Sodium 125 L 124 L 123 L POC Chloride Chloride 88 L 89 L 85 L Carbon Dioxide 21 L 21 L 19 L Anion Gap 19.0 H POC BUN BUN 73 H 71 H 69 H Creatinine 3.9 H 3.9 H 3.6 H POC Creatinine Glucose 155 H 268 H 478 H* POC Glucose Calcium 8.5 L 8.3 L 8.4 L POC WB Ioniz Calcium Alkaline Phosphatase 01/18/20 01/18/20 11:53 11:53 RBC 3.02 L Hgb 9.5 L Hct 28.1 L POC Hct 31.0 L RDW 14.8 H MPV 10.9 H Gran % 78.6 H Lymph % (Auto) 10.8 L Lymph # (Auto) 0.53 L Seg Neutrophils % Lymphocytes % RBC Morphology Anisocytosis Ovalocytes RBC Fragments POC Sodium 121 L Sodium 119 L* POC Chloride 85 L Chloride 79 L Carbon Dioxide 20 L Anion Gap 20.0 H POC BUN 77 H BUN 69 H Creatinine 3.8 H POC Creatinine 3.9 H Glucose 710 H* POC Glucose 672 H* Calcium POC WB Ioniz Calcium 1.13 L Alkaline Phosphatase 182 H Meds: Medications Acetaminophen (Tylenol) 650 mg PO Q4-6HP PRN; Protocol PRN Reason: Per Pain Protocol/Fever > 101 Last Admin: 01/19/20 07:47 Dose: 650 mg Documented by: Hydrocodone Bitart/Acetaminophen (Natoma 5/325mg) 1 tab PO QHS [facility]; Protocol Last Admin: 01/19/20 21:09 Dose: 1 tab Documented by: Albuterol/Ipratropium (Duoneb) 3 ml NEB Q6HRT PRN PRN Reason: Wheezing Bisacodyl (Dulcolax) 10 mg KS Q2-3DAYS PRN PRN Reason: Constipation Captopril (Capoten) 12.5 mg PO TID [facility] Last Admin: 01/19/20 21:09 Dose: 12.5 mg Documented by: Carvedilol (Coreg) 12.5 mg PO BIDCC [facility] Last Admin: 01/19/20 18:28 Dose: 12.5 mg Documented by: Diagnostic Test (Pha) (Accu-Chek) 1 each FS ACHS [facility] Last Admin: 01/19/20 21:08 Dose: 1 each Documented by: Heparin Sodium (Porcine) (Heparin) 5,000 unit SQ Q12 [facility] Last Admin: 01/19/20 21:10 Dose: 5,000 unit Documented by: Ceftriaxone Sodium 2 gm/ (Dextrose) 50 mls @ 100 mls/hr IV Q24H [facility]; Protocol Last Infusion: 01/19/20 09:48 Dose: Infused Documented by: Insulin Glargine (Lantus) 8 unit SQ BID [facility] Last Admin: 01/19/20 21:09 Dose: 8 unit Documented by: Insulin Human Lispro (Humalog) 0 unit SQ ACHS [facility]; Protocol Last Admin: 01/19/20 21:08 Dose: 3 unit Documented by: Levetiracetam (Keppra) 500 mg PO BID [facility] Last Admin: 01/19/20 21:09 Dose: 500 mg Documented by: [facility]othy[facility]ine [facility] ([facility]throid) [facility] Last Admin: 01/19/20 07:45 Dose: 125 mcg Documented by: Ondansetron HCl (Zofran) 4 mg IV Q4-6HP PRN; Protocol PRN Reason: Nausea And Vomiting Pantoprazole Sodium (Protonix) [facility] Last Admin: 01/19/20 07:45 Dose: 40 mg Documented by: Senna (Senokot) 2 tab PO HSP PRN PRN Reason: Constipation Sevelamer Carbonate (Renvela) 1,600 mg PO TIDCC [facility] Last Admin: 01/19/20 17:57 Dose: 1,600 mg Documented by: Sodium Chloride (Saline Flush) 10 ml IV Q8 [facility] Last Admin: 01/19/20 21:10 Dose: 10 ml Documented by: A/P Assessment and plan (1) 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 Comment: Allowed herself to run low or out of Insulin (2) End-stage renal disease on hemodialysis: Status: Chronic Comment: MWF (3) Anemia in ESRD (end-stage renal disease): Status: Chronic Comment: Aranesp 80 ug / wed (4) Hyperosmolar (nonketotic) coma: Status: Acute Comment: Mglucose is correctedonitor as (5) Hyponatremia: Status: Chronic Comment: Result of hyperglycemia with H2O shift to blunt the rise in serum osm but case "pseudohyponatremia" Narrative A/P Narrative: Narrative: Diabetic ketoacidosis-improved Presented with a blood glucose in 700 with a beta butyrate and elevated anion gap History of type 2 diabetes and noncompliance No evidence of active infection Urine analysis ordered-pending Started on insulin infusion and insulin drip-anion gap closed and insulin drip was stopped this morning Restarted Lantus at home insulin regimen with sliding scale Hyponatremia-probable pseudohyponatremia Mild chronic hyponatremia Patient has chronic hyponatremia with a sodium around 130 End-stage renal disease Patient underwent dialysis today No evidence of obvious hypervolemia or respiratory failure Potassium 4.5 History of CHF Underwent dialysis and no evidence of acute hypoxia We will hold her home medications Restart blood pressure medications History of CAD Continue her home medications Anemia Monitor hemoglobin History of CVA Continue home medications DVT prophylaxis-subcu heparin CODE STATUS-DNR Time Spent With Patient Time: Total time spent is greater than 50% in coordination of care (as documented) at patient's floor/unit and/or counseling patient: QUALITY Stroke Symptom Onset Unknown: No VTE Deep Vein Thrombosis/Pulmonary Embolism Present on Admission: No
[2020-01-19 23:02] LABS: Calcium 8.1 mg/dl (8.6-10.4); Carbon Dioxide 24 mmol/L (22-30); Glucose 257 mg/dL (70-105)
[2020-01-19 23:04] LABS: Blood Urea Nitrogen 28 mg/dl (8-23); Chloride 88 mmol/L (96-108); Glomerular Filtration Rate 21
[2020-01-20] MEDS: 0.9 % SODIUM CHLORIDE 10 ML SYRINGE IV SCH ×3 (05:23→21:16)
[2020-01-20 06:38] LABS: Hemoglobin 8.5 g/dL (11.2-15.7); Mean Cell Volume 93.2 fL (80.0-100.0); Mean Corpuscular HGB Conc 32.7 g/dL (31.0-36.0); Mean Platelet Volume 10.6 fL (7.4-10.4); Platelet Count 116 K/mcL (140-440); RBC 2.79 M/mcL (3.59-5.38); Red Cell Distribution Width 15.3 % (11.5-14.5)
[2020-01-20] MEDS: PANTOPRAZOLE 40 MG TABLET PO SCH (06:49)
[2020-01-20] MEDS: LEVOTHYROXINE 125 MCG TABLET PO SCH (06:49)
[2020-01-20 06:52] LABS: ALT/SGPT 12 U/l (0-40); AST/SGOT 14 U/l (0-37); Albumin 3.4 gm/dL (3.2-5.2); Albumin/Globulin Ratio 1.5 (1.0-2.3); Alkaline Phosphatase 137 U/L (39-117); Bilirubin,Total 0.3 mg/dL (0.0-1.0); Blood Urea Nitrogen 30 mg/dl (8-23); Calcium 8.2 mg/dl (8.6-10.4); Carbon Dioxide 25 mmol/L (22-30); Globulin 2.3 gm/dL (2.2-3.7); Glomerular Filtration Rate 20; Glucose 317 mg/dL (70-105)
[2020-01-20] MEDS: INSULIN LISPRO 1 UNIT/0.01 ML UNIT SQ SCH ×4 (06:52→21:14)
[2020-01-20 06:54] LABS: Chloride 89 mmol/L (96-108)
[2020-01-20] MEDS: CARVEDILOL 12.5 MG TABLET PO SCH ×2 (07:00→17:34)
[2020-01-20 07:44] LABS: Eosinophils % (Manual) 12 % (0-7); Lymphocytes % 9 % (15-49); Monocytes % (Manual) 5 % (1-12); Platelet Estimate DECREASED (NORMAL); RBC Morphology NORMAL (NORMAL); Segmented Neutrophils % 74 % (38-78)
--- NOTE | 2020-01-20 08:14 | Nephrology Progress Note ---
SUBJECTIVE Subjective Patient information: Note initiated : 01/20/20 at 8:10 am Service Date, if different from initiated Date: [] Patient: Shanda Rhodes 74 y/o F admitted on 01/18/20 for here for refill of novolog. Chief Complaint: [Ran out of insulin] Interval history: Narrative:Admitted with BS > 700 and pseudohyponatremia due to H2O shifts to prevent extreme hyperosmolarity. Improved but glucose still greater than 300, Na appropriatly low with calculated OSM 280 this AM. Laboratory Tests 01/20/20 04:14 Sodium 126 L Potassium 3.9 Chloride 89 L Carbon Dioxide 25 Anion Gap 12.0 BUN 30 H Creatinine 2.3 H GFR Calculation 20 Glucose 317 H Calcium 8.2 L Albumin 3.4 Needs to make sure she has her insulin before discharge. Constitutional Vitals: Vital Signs Temp Pulse Resp BP Pulse Ox 36.9 C 60 15 166/56 92 01/20/20 08:02 01/20/20 00:41 01/20/20 08:02 01/20/20 08:02 01/20/20 08:02 Period Temp Pulse Resp BP Sys/Courtney Pulse Ox Last 24 Hr 36.3 C-37.2 C 59-67 11-21 135-189/48-102 87-99 Intake and Output 01/19/20 01/20/20 01/20/20 21:59 05:59 13:59 Intake Total 707 220 Output Total 3400 75 Balance -2693 145 Weight 63.82 kg Intake & Output: Intake & Output 01/19/20 01/20/20 01/20/20 21:59 05:59 13:59 Intake Total 707 220 Output Total 3400 75 Balance -2693 145 Weight 63.82 kg Intake: IV 157 Sodium Chloride 0.9% 250 ml @ 157 20 mls/hr IV .[id number] [facility] Rx#: [id number] Oral 550 220 Output: Void Amount 400 75 Hemodialysis UF 3000 Other: Meal Dinner snack Percent of Meal Consumed 100% 100% Feeding Ability Independent Assist with Tray Set Up Urine Appearance Cloudy Cloudy Urine Color Straw Straw General appearance: average body habitus and no acute distress Exam: Sitting up on the edge of the bed while eating her breakfast Head Head exam: Present atraumatic and normocephalic Eye Eye exam: Present EOMI, normal appearance and PERRL Pupils: Present PERRL ENT ENT exam: Present mucous membranes dry Neck Neck exam: Present full ROM and normal inspection Respiratory Respiratory exam: Present normal respiratory exam and CTAB Cardiovascular Cardiovascular exam: Present normal rate and rhythm, +S1 and +S2; Absent gallop, rubs and +S3 GI/Abdominal GI/Abdominal exam: Present normal bowel sounds and soft; Absent guarding Rectal Rectal exam: Present deferred Extremities Exam Extremities exam: Present full ROM, pedal edema (1+ lower extremity edema) and neurovascular intact; Absent tenderness and Arthur's sign Neurological Exam Neurological exam: Present alert, CN II-XII intact, motor sensory deficit and oriented X3 Additional comments: Gait not tested No mild clonus present No signs or symptoms of uremia Psychiatric Psychiatric exam: Present flat affect Skin Skin exam: Present dry A/P Assessment and plan (1) 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 Comment: Allowed herself to run low or out of Insulin (2) End-stage renal disease on hemodialysis: Status: Chronic Comment: MWF (3) Anemia in ESRD (end-stage renal disease): Status: Chronic Comment: Aranesp 80 ug / wed (4) Hyperosmolar (nonketotic) coma: Status: Acute Comment: Mglucose is correctedonitor as (5) Hyponatremia: Status: Chronic Comment: Result of hyperglycemia with H2O shift to blunt the rise in serum osm but case "pseudohyponatremia" Narrative A/P Narrative: Narrative: Clinically improved no objection to discharge with follow-up dialysis tomorrow She probably should be on sliding scale 0 to 10 units based on her pre-meal blood sugars plus an additional 5 units to cover her mealtime carbohydrate intake. Currently the best I can trigger she gives herself about 7 units of Humalog in addition to her Lantus. This is not enough insulin when her blood sugar is elevated pre-meal time. Discharge Meds Discharge Medications Active and Home Medications:Home Medications levetiracetam 500 mg PO BID 11/10/16 [History Confirmed 01/18/20 Last Taken 01/17/20 20:00] acetaminophen 650 mg PO Q4-6HP PRN #0 tab 11/24/16 [Rx Confirmed 01/18/20 Last Taken 01/14/20 20:00] Accu-Chek 1 each FS ACHS strip 09/03/17 [Rx Confirmed 10/08/19 Last Taken 01/18/20 08:00] loperamide 2 mg PO BIDP PRN 03/04/19 [History Confirmed 01/19/20 Last Taken 04/16/19] captopril 12.5 mg PO TID #90 tab 03/09/19 [Rx Confirmed 01/19/20 Last Taken 12/22 02/08 20:00] hydrocodone-acetaminophen 1 tab PO QHS 07/09/19 [History Confirmed 01/19/20 Last Taken 07/26/19 20:00] levothyroxine 125 mcg PO DAILY 07/09/19 [History Confirmed 01/18/20 Last Taken 01/17/20 07:00] lidocaine-prilocaine 1 each TP MOWEFR 07/09/19 [History Confirmed 01/19/20 Last Taken 07/25/19 07:00] nitroglycerin 0.4 mg SL Q5M PRN 07/09/19 [History Confirmed 01/18/20 Last Taken Unknown] polymyxin B sulf-trimethoprim 1 gtt BOTH EYES Q6HP PRN 07/09/19 [History Confirmed 01/19/20 Last Taken Unknown] sennosides 2 tab PO DAILY 07/09/19 [History Confirmed 01/19/20 Last Taken 07/26/19 08:00] B complex-vitamin C-folic acid 1 tab PO DAILY 09/29/19 [History Confirmed 01/19/20 Last Taken Unknown] blood-glucose meter #1 each 11/26/19 [Rx Last Taken Unknown] Dialyvite 800 with Zinc 15 1 tab PO DAILY 01/18/20 [History Confirmed 01/19/20 Last Taken Unknown] atorvastatin 80 mg PO QHS 01/18/20 [History Confirmed 01/18/20 Last Taken 01/17/20 20:00] pantoprazole 40 mg PO DAILY 01/18/20 [History Confirmed 01/18/20 Last Taken 01/17/20 08:00] sevelamer carbonate 1,600 mg PO TID 01/18/20 [History Confirmed 01/19/20 Last Taken Unknown] gabapentin 300 mg PO BID 01/19/20 [History Confirmed 01/19/20 Last Taken Unknown] insulin aspart U-100 See Rx Instructions .ROUTE .COMPLEX 01/19/20 [History Confirmed 01/19/20 Last Taken Unknown] Time Spent With Patient Time: Total time spent is greater than 50% in coordination of care (as documented) at patient's floor/unit and/or counseling patient:
[2020-01-20] MEDS: cefTRIAXone 2 GM in DEXTROSE 5% IN WATER 50 ML IV SCH (08:37)
[2020-01-20] MEDS: SEVELAMER 800 MG TABLET PO SCH ×3 (08:37→17:34)
[2020-01-20] MEDS: INSULIN GLARGINE, HUMAN 1 UNIT/0.01 ML SQ SCH ×2 (08:38→21:16)
[2020-01-20] MEDS: CAPTOPRIL 12.5 MG TABLET PO SCH ×3 (08:38→21:15)
[2020-01-20] MEDS: levETIRAcetam 500 MG TABLET PO SCH ×2 (08:38→21:16)
[2020-01-20] MEDS: HEPARIN 5,000 UNIT/ML VIAL SQ SCH ×2 (08:38→21:14)
--- NOTE | 2020-01-20 10:52 | Internal Med Progress Note ---
SUBJECTIVE Subjective Patient information: Note initiated : 01/20/20 at 10:50 am Service Date, if different from initiated Date: [] Patient: Shanda Rhodes 74 y/o F admitted on 01/18/20 for here for refill of novolog. Chief Complaint: [] 74-year-old female presented to the ED to obtain insulin prescriptions. Patient stated she usually takes 12 units and she only had 8 units left in her blood sugar readings were high at home. Patient was evaluated in the ED she denied any respiratory symptoms no abdominal symptoms her blood glucose level was more than 700. Her chemistry panel showed sodium of 119. Unable to provide any urine samples no other source of infection identified. Patient appears to be slightly drowsy. Patient's daughter accompanied the patient unable to help the patient at home and reported patient has been very weak and tired and they are going out of town. Patient blood work-up showed evidence of anion gap and probable DKA patient was given 10 units of regular insulin infusion followed by insulin drip and admitted for DKA. 01/19/2020 Insulin drip was stopped overnight Restarted her home insulin regimen With the Lantus and mealtime insulin and added sliding scale Patient appears to be very weak and unable to be discharged home Patient underwent dialysis today We will monitor her renal function electrolytes Case management involved in looking for placement 01/20/2020 Patient appears to be very weak Working with the PT and recommended rehab Discussed with the patient patient wants to go home and she will have any support at home until tomorrow Plan is to discharge to home tomorrow Patient has dialysis scheduled for tomorrow Monitor renal function Change antibiotic to p.o. Review of system- General-denied any chills fever tiredness reported Respiratory-no cough no shortness of breath no sputum production Cardio-no palpitations no dizziness no chest pain Abdominal-denies diarrhea constipation Neuro-denies any focal neuro deficit, no syncope no seizure Interval history: Narrative: Constitutional Vitals: Vital Signs Temp Pulse Resp BP Pulse Ox 98.5 F 60 15 166/56 92 01/20/20 08:02 01/20/20 00:41 01/20/20 08:02 01/20/20 08:02 01/20/20 08:02 Period Temp Pulse Resp BP Sys/Courtney Pulse Ox Last 24 Hr 97.3 F-98.9 F 59-65 11-21 135-189/48-102 91-99 Intake and Output 01/19/20 01/20/20 01/20/20 21:59 05:59 13:59 Intake Total 707 220 Output Total 3400 75 Balance -2693 145 Weight 140 lb 11.2 oz Intake & Output: Intake & Output 01/19/20 01/20/20 01/20/20 21:59 05:59 13:59 Intake Total 707 220 Output Total 3400 75 Balance -2693 145 Weight 140 lb 11.2 oz Intake: IV 157 Sodium Chloride 0.9% 250 ml @ 157 20 mls/hr IV .[id number] RUPERTO Rx#: [id number] Oral 550 220 Output: Void Amount 400 75 Hemodialysis UF 3000 Other: Meal Dinner snack Percent of Meal Consumed 100% 100% Feeding Ability Independent Assist with Tray Set Up Urine Appearance Cloudy Cloudy Urine Color Straw Straw General appearance: cooperative and no acute distress Head Head exam: Present atraumatic and normal inspection Eye Eye exam: Present EOMI; Absent periorbital swelling and scleral icterus ENT ENT exam: Present mucous membranes moist, normal exam and normal oropharynx Neck Neck exam: Absent lymphadenopathy and tenderness Respiratory Respiratory exam: Present rales; Absent accessory muscle use, respiratory d istress and wheezes Cardiovascular Cardiovascular exam: Absent JVD, +S3, +S4 and tachycardia GI/Abdominal GI/Abdominal exam: Present normal bowel sounds, soft and distended Neurological Exam Neurological exam: Present alert, oriented X3 and reflexes normal; Absent motor sensory deficit Psychiatric Psychiatric exam: Absent agitated, anxious and depressed OBJ DATA Labs CBC & Chem 7: 01/20/20 04:14 01/20/20 04:14 Labs: Abnormal Lab Results 01/20/20 01/20/20 01/19/20 04:14 04:14 21:24 WBC 4.0 L RBC 2.79 L Hgb 8.5 L Hct 26.0 L POC Hct RDW 15.3 H Plt Count 116 L MPV 10.6 H Gran % Lymph % (Auto) Lymph # (Auto) Seg Neutrophils % Lymphocytes % 9 L Eosinophils % (Manual) 12 H RBC Morphology Anisocytosis Ovalocytes RBC Fragments POC Sodium Sodium 126 L 126 L POC Chloride Chloride 89 L 88 L Carbon Dioxide Anion Gap POC BUN BUN 30 H 28 H Creatinine 2.3 H 2.2 H POC Creatinine Glucose 317 H 257 H POC Glucose Calcium 8.2 L 8.1 L POC WB Ioniz Calcium Alkaline Phosphatase 137 H Total Protein 5.7 L 01/19/20 01/19/20 01/19/20 15:02 09:32 04:50 WBC RBC 2.92 L Hgb 9.2 L Hct 26.9 L POC Hct RDW 14.9 H Plt Count MPV 10.7 H Gran % Lymph % (Auto) Lymph # (Auto) Seg Neutrophils % 82 H Lymphocytes % 7 L Eosinophils % (Manual) RBC Morphology Abnorm A Anisocytosis Few A Ovalocytes Few A RBC Fragments Rare A POC Sodium Sodium 127 L 125 L POC Chloride Chloride 89 L 89 L Carbon Dioxide 19 L Anion Gap 17.0 H POC BUN BUN 75 H Creatinine 1.7 H 4.1 H POC Creatinine Glucose 216 H 236 H POC Glucose Calcium 8.3 L 8.4 L POC WB Ioniz Calcium Alkaline Phosphatase Total Protein 01/19/20 01/18/20 01/18/20 04:50 20:50 15:05 WBC RBC Hgb Hct POC Hct RDW Plt Count MPV Gran % Lymph % (Auto) Lymph # (Auto) Seg Neutrophils % Lymphocytes % Eosinophils % (Manual) RBC Morphology Anisocytosis Ovalocytes RBC Fragments POC Sodium Sodium 125 L 124 L 123 L POC Chloride Chloride 88 L 89 L 85 L Carbon Dioxide 21 L 21 L 19 L Anion Gap 19.0 H POC BUN BUN 73 H 71 H 69 H Creatinine 3.9 H 3.9 H 3.6 H POC Creatinine Glucose 155 H 268 H 478 H* POC Glucose Calcium 8.5 L 8.3 L 8.4 L POC WB Ioniz Calcium Alkaline Phosphatase Total Protein 01/18/20 01/18/20 11:53 11:53 WBC RBC 3.02 L Hgb 9.5 L Hct 28.1 L POC Hct 31.0 L RDW 14.8 H Plt Count MPV 10.9 H Gran % 78.6 H Lymph % (Auto) 10.8 L Lymph # (Auto) 0.53 L Seg Neutrophils % Lymphocytes % Eosinophils % (Manual) RBC Morphology Anisocytosis Ovalocytes RBC Fragments POC Sodium 121 L Sodium 119 L* POC Chloride 85 L Chloride 79 L Carbon Dioxide 20 L Anion Gap 20.0 H POC BUN 77 H BUN 69 H Creatinine 3.8 H POC Creatinine 3.9 H Glucose 710 H* POC Glucose 672 H* Calcium POC WB Ioniz Calcium 1.13 L Alkaline Phosphatase 182 H Total Protein Meds: Medications Acetaminophen (Tylenol) 650 mg PO Q4-6HP PRN; Protocol PRN Reason: Per Pain Protocol/Fever > 101 Last Admin: 01/19/20 07:47 Dose: 650 mg Documented by: Hydrocodone Bitart/Acetaminophen ([place] 5/325mg) 1 tab PO QHS [facility]; Protocol Last Admin: 01/19/20 21:09 Dose: 1 tab Documented by: Albuterol/Ipratropium (Duoneb) 3 ml NEB Q6HRT PRN PRN Reason: Wheezing Bisacodyl (Dulcolax) 10 mg [place] Q2-3DAYS PRN PRN Reason: Constipation Captopril (Capoten) 12.5 mg PO TID [facility] Last Admin: 01/20/20 08:38 Dose: 12.5 mg Documented by: Carvedilol (Coreg) 12.5 mg PO BIDCC [facility] Last Admin: 01/20/20 07:00 Dose: 12.5 mg Documented by: Cefuroxime Axetil (Ceftin) 500 mg PO Q12 [facility]; Protocol Diagnostic Test (Pha) (Accu-Chek) 1 each FS [facility] Last Admin: 01/20/20 06:49 Dose: 1 each Documented by: Heparin Sodium (Porcine) (Heparin) 5,000 unit SQ Q12 [facility] Last Admin: 01/20/20 08:38 Dose: 5,000 unit Documented by: Insulin Glargine (Lantus) 8 unit SQ BID [facility] Last Admin: 01/20/20 08:38 Dose: 8 unit Documented by: Insulin Human Lispro (Humalog) 0 unit SQ [facility]; Protocol Last Admin: 01/20/20 06:52 Dose: 6 unit Documented by: Levetiracetam (Keppra) 500 mg PO BID [facility] Last Admin: 01/20/20 08:38 Dose: 500 mg Documented by: Levothyroxine Sodium (Synthroid) 125 mcg PO [facility] Last Admin: 01/20/20 06:49 Dose: 125 mcg Documented by: Ondansetron HCl (Zofran) 4 mg IV Q4-6HP PRN; Protocol PRN Reason: Nausea And Vomiting [facility]oprazole [facility]) [facility] Last Admin: 01/20/20 06:49 Dose: 40 mg Documented by: Antoine (Senokot) 2 tab PO HSP PRN PRN Reason: Constipation Sevelamer Carbonate (Renvela) 1,600 mg PO TIDCC [facility] Last Admin: 01/20/20 08:37 Dose: 1,600 mg Documented by: Sodium Chloride (Saline Flush) 10 ml IV Q8 [facility] Last Admin: 01/20/20 05:23 Dose: 10 ml Documented by: A/P Assessment and plan (1) 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 Comment: Allowed herself to run low or out of Insulin (2) End-stage renal disease on hemodialysis: Status: Chronic Comment: MWF (3) Anemia in ESRD (end-stage renal disease): Status: Chronic Comment: Aranesp 80 ug / wed (4) Hyperosmolar (nonketotic) coma: Status: Acute Comment: Mglucose is correctedonitor as (5) Hyponatremia: Status: Chronic Comment: Result of hyperglycemia with H2O shift to blunt the rise in serum osm but case "pseudohyponatremia" Narrative A/P Narrative: Narrative: Diabetic ketoacidosis-improved Presented with a blood glucose in 700 with a beta butyrate and elevated anion gap History of type 2 diabetes and noncompliance No evidence of active infection Urine analysis ordered-pending Started on insulin infusion and insulin drip-anion gap closed and insulin drip was stopped this morning Restarted Lantus at home insulin regimen with sliding scale Hyponatremia-probable pseudohyponatremia Mild chronic hyponatremia Patient has chronic hyponatremia with a sodium around 130 Possible UTI Patient had some lower abdominal tenderness on presentation She makes small amount of urine Unfortunately they did not send UA but send a urine culture She was given ceftriaxone 2 days and changed to Ceftin 500 twice daily until we get further urine culture report End-stage renal disease Patient underwent dialysis today No evidence of obvious hypervolemia or respiratory failure Potassium 4.5 History of CHF Underwent dialysis and no evidence of acute hypoxia We will hold her home medications Restart blood pressure medications History of CAD Continue her home medications Anemia Monitor hemoglobin History of CVA Continue home medications DVT prophylaxis-subcu heparin CODE STATUS-DNR Time Spent With Patient Time: Total time spent is greater than 50% in coordination of care (as documented) at patient's floor/unit and/or counseling patient: QUALITY Stroke Symptom Onset Unknown: No VTE Deep Vein Thrombosis/Pulmonary Embolism Present on Admission: No
[2020-01-20] MEDS: ACETAMINOPHEN 325 MG TABLET PO PRN (13:56)
--- NOTE | 2020-01-20 14:44 | Discharge Summary ---
Discharge Provider Provider Patient information: Note initiated : 01/20/20 at 2:42 pm Service Date, if different from initiated Date: [] Patient: Shanda Rhodes 74 y/o F admitted on 01/18/20 for here for refill of novolog. Chief Complaint: [] Date of admission: 01/18/20 16:05 Discharge date: 01/21/20 Primary care physician: Gifty Chisholm Consults: 01/18/20 Consult to Physician [CONS] Stat Comment: Consulting Provider: Katy Meza Reason For Exam: Physician to Consult Consult to Physician [CONS] Stat Comment: Consulting Provider: Larisa Pritchett Reason For Exam: Physician to Consult Discharge Meds Discharge Medications Active and Home Medications: Home Medications levetiracetam 500 mg PO BID 11/10/16 [History Confirmed 01/18/20 Last Taken 01/17/20 20:00] acetaminophen 650 mg PO Q4-6HP PRN #0 tab 11/24/16 [Rx Confirmed 01/18/20 Last Taken 01/14/20 20:00] Accu-Chek 1 each FS ACHS strip 09/03/17 [Rx Confirmed 10/08/19 Last Taken 01/18/20 08:00] loperamide 2 mg PO BIDP PRN 03/04/19 [History Confirmed 01/19/20 Last Taken 04/16/19] captopril 12.5 mg PO TID #90 tab 03/09/19 [Rx Confirmed 01/19/20 Last Taken 01/17/20 20:00] hydrocodone-acetaminophen 1 tab PO QHS 07/09/19 [History Confirmed 01/19/20 Last Taken 07/26/19 20:00] levothyroxine 125 mcg PO DAILY 07/09/19 [History Confirmed 01/18/20 Last Taken 01/17/20 07:00] lidocaine-prilocaine 1 each TP MOWEFR 07/09/19 [History Confirmed 01/19/20 Last Taken 07/25/19 07:00] nitroglycerin 0.4 mg SL Q5M PRN 07/09/19 [History Confirmed 01/18/20 Last Taken Unknown] polymyxin B sulf-trimethoprim 1 gtt BOTH EYES Q6HP PRN 07/09/19 [History Confirmed 01/19/20 Last Taken Unknown] sennosides 2 tab PO DAILY 07/09/19 [History Confirmed 01/19/20 Last Taken 07/26/19 08:00] B complex-vitamin C-folic acid 1 tab PO DAILY 09/29/19 [History Confirmed 01/19/20 Last Taken Unknown] blood-glucose meter #1 each 11/26/19 [Rx Last Taken Unknown] Dialyvite 800 with Zinc 15 1 tab PO DAILY 01/18/20 [History Confirmed 01/19/20 Last Taken Unknown] atorvastatin 80 mg PO QHS 01/18/20 [History Confirmed 01/18/20 Last Taken 01/17/20 20:00] pantoprazole 40 mg PO DAILY 01/18/20 [History Confirmed 01/18/20 Last Taken 01/17/20 08:00] sevelamer carbonate 1,600 mg PO TID 01/18/20 [History Confirmed 01/19/20 Last Taken Unknown] gabapentin 300 mg PO BID 01/19/20 [History Confirmed 01/19/20 Last Taken Unknown] insulin aspart U-100 See Rx Instructions .ROUTE .COMPLEX 01/19/20 [History Confirmed 01/19/20 Last Taken Unknown] COURSE Hospital Course Hospital Course: [] 74-year-old female presented to the ED to obtain insulin prescriptions. Patient stated she usually takes 12 units and she only had 8 units left in her blood sugar readings were high at home. Patient was evaluated in the ED she denied any respiratory symptoms no abdominal symptoms her blood glucose level was more than 700. Her chemistry panel showed sodium of 119. Unable to provide any urine samples no other source of infection identified. Patient appears to be slightly drowsy. Patient's daughter accompanied the patient unable to help the patient at home and reported patient has been very weak and tired and they are going out of town. Patient blood work-up showed evidence of anion gap and probable DKA patient was given 10 units of regular insulin infusion followed by insulin drip and admitted for DKA. 01/19/2020 Insulin drip was stopped overnight Restarted her home insulin regimen With the Lantus and mealtime insulin and added sliding scale Patient appears to be very weak and unable to be discharged home Patient underwent dialysis today We will monitor her renal function electrolytes Case management involved in looking for placement 01/20/2020 Patient appears to be very weak Working with the PT and recommended rehab Discussed with the patient patient wants to go home and she will have any support at home until tomorrow Plan is to discharge to home tomorrow Patient has dialysis scheduled for tomorrow Monitor renal function Change antibiotic to p.o. 01/20 No issues overnight or new complaints. Stable for discharge. Assessment: Diabetic ketoacidosis-improved Hyponatremia-probable pseudohyponatremia Possible UTI End-stage renal disease History of CHF History of CAD Anemia History of CVA Discharge diagnosis: DKA hyponatremia possible UTI end-stage renal disease Secondary discharge diagnosis: History of CHF and CAD anemia history of stroke Time Spent with Patient Time attestation: Total time spent providing and/or coordinating discharge services: Time spent: Greater than 30 minutes EXAM Constitutional Vitals: Temp Pulse Resp BP Pulse Ox 97.7 F 60 17 165/88 93 01/20/20 11:50 01/20/20 00:41 01/20/20 11:50 01/20/20 11:50 01/20/20 14:00 Discharge Data Data Completed and Pending Labs on day of discharge: Labs from last 24 hours 01/20/20 01/20/20 01/19/20 04:14 04:14 21:24 WBC 4.0 L RBC 2.79 L Hgb 8.5 L Hct 26.0 L MCV 93.2 MCH 30.5 MCHC 32.7 RDW 15.3 H Plt Count 116 L MPV 10.6 H Total Counted 100 Seg Neutrophils % 74 Band Neutrophils % Not Reportable Lymphocytes % 9 L Monocytes % (Manual) 5 Eosinophils % (Manual) 12 H Platelet Estimate Decreased RBC Morphology Normal Sodium 126 L 126 L Potassium 3.9 4.1 Chloride 89 L 88 L Carbon Dioxide 25 24 Anion Gap 12.0 14.0 BUN 30 H 28 H Creatinine 2.3 H 2.2 H GFR Calculation 20 21 Glucose 317 H 257 H Calcium 8.2 L 8.1 L Total Bilirubin 0.3 AST 14 ALT 12 Alkaline Phosphatase 137 H Total Protein 5.7 L Albumin 3.4 Globulin 2.3 Albumin/Globulin Ratio 1.5 01/19/20 15:02 WBC RBC Hgb Hct MCV MCH MCHC RDW Plt Count MPV Total Counted Seg Neutrophils % Band Neutrophils % Lymphocytes % Monocytes % (Manual) Eosinophils % (Manual) Platelet Estimate RBC Morphology Sodium 127 L Potassium 3.4 Chloride 89 L Carbon Dioxide 24 Anion Gap 14.0 BUN 22 Creatinine 1.7 H GFR Calculation 29 Glucose 216 H Calcium 8.3 L Total Bilirubin AST ALT Alkaline Phosphatase Total Protein Albumin Globulin Albumin/Globulin Ratio Preliminary micro results at discharge 01/18/20 15:34 Urine Culture - Preliminary Urine - Clean Void Mid-Stream Discharge Plan Patient/Caregiver Discharge Instructions Activity: increase activity as tolerated Instructions: Hyponatremia (GEN), Diabetic Ketoacidosis (GEN) Activity Restrictions/Additional Instructions: This discharge packet is provided to you to help keep you informed about your care. We want to ensure you get everything you need when you go home. You will also be receiving a call from us in a few days to follow up with you and see how you are doing since your discharge. This gives us a chance to listen to any concerns you maybe experiencing since you were discharged or any additional needs you may have, as well as providing us feedback on your care experience. We strive to always provide excellent care and thank you for your feedback and for choosing [facility]. Prescriptions: New cefuroxime axetil 500 mg Tablet 500 mg PO MoWeFr@1400 Qty: 2 RF: 0 Continued (DME) blood-glucose meter Misc See Rx Instructions .ROUTE .MEDSUPPLY Qty: 1 RF: 0 levetiracetam 500 MG tablet 500 mg PO BID RF: 0 acetaminophen 325 MG tablet 650 mg PO Q4-6HP PRN (Reason: Pain/Fever > 101) Qty: 0 RF: 0 Accu-Chek 1 EACH strip 1 each FS ACHS RF: 0 loperamide 2 MG capsule 2 mg PO BIDP PRN (Reason: Diarrhea) RF: 0 captopril 12.5 MG tablet 12.5 mg PO TID Qty: 90 RF: 0 hydrocodone-acetaminophen 1 TAB tablet 1 tab PO QHS RF: 0 levothyroxine 125 MCG tablet 125 mcg PO DAILY RF: 0 lidocaine-prilocaine 1 EACH kit 1 each TP MOWEFR RF: 0 nitroglycerin 0.4 MG tablet, sublingual 0.4 mg SL Q5M PRN (Reason: Chest Pain) RF: 0 sennosides 8.6 MG capsule 2 tab PO DAILY RF: 0 polymyxin B sulf-trimethoprim 10 ML drops 1 gtt BOTH EYES Q6HP PRN (Reason: Dry Eye(S)) RF: 0 B complex-vitamin C-folic acid 1 EACH tablet 1 tab PO DAILY RF: 0 atorvastatin 80 mg Tablet 80 mg PO QHS RF: 0 pantoprazole 40 mg Tablet,Delayed Release (Dr/Ec) 40 mg PO DAILY RF: 0 sevelamer carbonate 800 mg Tablet 1,600 mg PO TID RF: 0 Dialyvite 800 with Zinc 15 1 tab PO DAILY RF: 0 gabapentin 300 mg capsule 300 mg PO BID RF: 0 carvedilol 12.5 mg tablet 12.5 mg PO BID RF: 0 Levemir FlexTouch U-100 Insuln 100 unit/mL (3 mL) insulin pen 8 unit SUBCUT BID RF: 0 insulin aspart U-100 [Novolog Flexpen U-100 Insulin] 100 unit/mL (3 mL) insulin pen 2 unit SUBCUT ACHS RF: 0 Follow Up Plan Follow up with: Katy Meza MD [Physician] - (Continue with your current dialysis schedule) Palmer Farris MD [Physician] - Gifty Chisholm ARNP [Primary Care Provider] - 01/22/20 3:20 pm (This will be a phone visit) Patient Disposition: Home Health Service Prognosis: Undetermined Rehab Potential: Fair Overall status at discharge: patient is progressing back to baseline Discharge Orders: Discharge Order (Routine); Ordered 01/21/20 Ordered By: Darnell Timmons [facility] VTE Deep Vein Thrombosis/Pulmonary Embolism Present on Admission: No
[2020-01-20 15:48] LABS: Hemoglobin A1C 11.4 % HGB (4.0-6.0)
[2020-01-20] MEDS: HYDROcodone/APAP 5/325MG TABLET PO SCH (21:16)
[2020-01-21] MEDS: ACETAMINOPHEN 325 MG TABLET PO PRN (02:25)
[2020-01-21] MEDS: 0.9 % SODIUM CHLORIDE 10 ML SYRINGE IV SCH (06:54)
[2020-01-21] MEDS: PANTOPRAZOLE 40 MG TABLET PO SCH (06:54)
[2020-01-21] MEDS: LEVOTHYROXINE 125 MCG TABLET PO SCH (06:54)
[2020-01-21] MEDS: INSULIN LISPRO 1 UNIT/0.01 ML UNIT SQ SCH ×2 (06:55→11:45)
[2020-01-21 07:39] LABS: Hematocrit 26.1 % (34.1-44.9); Hemoglobin 8.7 g/dL (11.2-15.7); Mean Cell Volume 93.9 fL (80.0-100.0); Mean Corpuscular HGB Conc 33.3 g/dL (31.0-36.0); Mean Platelet Volume 10.6 fL (7.4-10.4); Platelet Count 130 K/mcL (140-440); RBC 2.78 M/mcL (3.59-5.38); Red Cell Distribution Width 15.7 % (11.5-14.5)
[2020-01-21] MEDS: CAPTOPRIL 12.5 MG TABLET PO SCH (08:06)
[2020-01-21] MEDS: INSULIN GLARGINE, HUMAN 1 UNIT/0.01 ML SQ SCH (08:06)
[2020-01-21] MEDS: SEVELAMER 800 MG TABLET PO SCH ×2 (08:06→11:35)
[2020-01-21] MEDS: levETIRAcetam 500 MG TABLET PO SCH (08:06)
[2020-01-21] MEDS: HEPARIN 5,000 UNIT/ML VIAL SQ SCH (08:06)
[2020-01-21] MEDS: CARVEDILOL 12.5 MG TABLET PO SCH (08:06)
[2020-01-21 08:39] LABS: Anisocytosis 1+ (NONE SEEN); Band Neutrophils % 1 % (0-10); Eosinophils % (Manual) 6 % (0-7); Hypochromasia 1+ (NONE SEEN); Lymphocytes % 17 % (15-49); Monocytes % (Manual) 11 % (1-12); Platelet Estimate DECREASED (NORMAL); Polychromasia 1+ (NONE SEEN); RBC Morphology ABNORM (NORMAL); Reactive Lymphocytes 1 % (0-2); Segmented Neutrophils % 64 % (38-78)
[2020-01-21] MEDS ORDERED: CEFUROXIME 500 MG TABLET PO SCH (14:00)
== END 2020-01-21 12:19 | disposition home health service (06) | DRG 637 ==
LOC: ED 11:33 → ICU 16:05
PROVIDERS: ADMIT Internal Medicine; ATTEND Internal Medicine

== ENCOUNTER 2020-02-16 12:35 | Inpatient (IN) ==
[2020-02-16] MEDS ORDERED: DEXTROSE 50% 50 ML VIAL IV ONE (12:41)
[2020-02-16] MEDS ORDERED: ACETAMINOPHEN 325 MG TABLET PO ONE (12:51)
--- NOTE | 2020-02-16 12:51 | Emergency Department Note ---
HPI General Chief complaint: Blood Sugar Problem Stated complaint: blood sugar problem Time Seen by Provider: 02/16/20 12:40 Source: patient and other Mode of arrival: wheelchair Limitations: altered mental status History of Present Illness HPI Narrative: Narrative: This patient comes over from dialysis for decreased level of consciousness. Her blood sugar was 69 and she was given an amp of D50 and did seem to improve slightly. She has a history of dementia and has difficulty giving a history. She is not claiming any pain or difficulties. However she has a temperature of 101.5. We will initiate a septic work-up. Patient is a DNR. Related Data Home Medications Medication Instructions Recorded Confirmed levetiracetam 500 mg PO BID 11/10/16 01/18/20 loperamide 2 mg PO BIDP PRN 03/04/19 01/19/20 hydrocodone-acetaminophen 1 tab PO QHS 07/09/19 01/19/20 levothyroxine 125 mcg PO DAILY 07/09/19 01/18/20 lidocaine-prilocaine 1 each TP MOWEFR 07/09/19 01/19/20 nitroglycerin 0.4 mg SL Q5M PRN 07/09/19 01/18/20 polymyxin B sulf-trimethoprim 1 gtt BOTH EYES Q6HP PRN 07/09/19 01/19/20 sennosides 2 tab PO DAILY 07/09/19 01/19/20 B complex-vitamin C-folic acid 1 tab PO DAILY 09/29/19 01/19/20 Dialyvite 800 with Zinc 15 1 tab PO DAILY 01/18/20 01/19/20 atorvastatin 80 mg PO QHS 01/18/20 01/18/20 pantoprazole 40 mg PO DAILY 01/18/20 01/18/20 sevelamer carbonate 1,600 mg PO TID 01/18/20 01/19/20 gabapentin 300 mg PO BID 01/19/20 01/19/20 Levemir FlexTouch U-100 Insuln 8 unit SUBCUT BID 01/20/20 01/20/20 carvedilol 12.5 mg PO BID 01/20/20 01/20/20 insulin aspart U-100 [Novolog 2 unit SUBCUT ACHS 01/20/20 01/20/20 Flexpen U-100 Insulin] Previous Rx's Medication Instructions Recorded acetaminophen 650 mg PO Q4-6HP PRN #0 tab 11/24/16 Accu-Chek 1 each FS ACHS strip 09/03/17 captopril 12.5 mg PO TID #90 tab 03/09/19 blood-glucose meter #1 each 11/26/19 cefuroxime axetil 500 mg PO MoWeFr@1400 #2 tab 01/20/20 Allergies Allergy/AdvReac Type Severity Reaction Status Date / Time lactose AdvReac Mild Diarrhea Verified 02/16/20 12:40 Review of Systems ROS ROS Narrative: Narrative: Limitations: ROS unobtainable due to patients medical condition [facility] Narrative Patient History Narrative: Narrative: Medical/Surgical/Family History All Active Problems (Updated 02/16/20 @ 15:01 by Khalif Fuller MD) Pneumonia (Acute) ESRD (end stage renal disease) on dialysis (Acute) Hyperosmolar (nonketotic) coma (Acute) Anemia (Acute) UTI (urinary tract infection) (Acute) Hyperglycemia (Acute) Hyponatremia (Acute) Medication refill (Acute) Diabetes (Acute) Chronic kidney disease (CKD) (Acute) Dialysis patient (Acute) DNR no code (do not resuscitate) (Chronic) Anemia in ESRD (end-stage renal disease) (Chronic) Seizure disorder (Chronic) Hyperglycemia due to type 2 diabetes mellitus (Chronic) Chronic hyponatremia (Chronic) Lower gastrointestinal hemorrhage (Chronic) Hematochezia (Acute) Upper gastrointestinal hemorrhage (Acute) Status post insertion of drug-eluting stent into left anterior descending (LAD) artery (Chronic) CAD (coronary artery disease) (Chronic) Status cardiac pacemaker (Chronic) AF (paroxysmal atrial fibrillation) (Chronic) CKD (chronic kidney disease), stage IV (Chronic) CHF (congestive heart failure) (Acute) Chronic anticoagulation (Chronic) Artificial cardiac pacemaker (Chronic) Diabetes mellitus type 2 with complications (Chronic) Diabetic peripheral neuropathy (Chronic) Hypothyroidism, acquired (Chronic) History of recurrent UTI (urinary tract infection) (Chronic) Myoclonus (Chronic) Dementia (Chronic) Secondary hyperparathyroidism of renal origin (Chronic) End-stage renal disease on hemodialysis (Chronic) Anemia due to end stage renal disease (Chronic) Hyponatremia (Chronic) Hypertensive renal disease (Chronic) Medical History (Updated 02/16/20 @ 15:01 by Khalif Fuller MD) Acute exacerbation of CHF (congestive heart failure) (Resolved) Acute kidney injury superimposed on chronic kidney disease (Resolved) Acute on chronic renal failure (Resolved) Acute renal failure superimposed on stage 3 chronic kidney disease (Resolved) Acute respiratory failure with hypoxia (Resolved) AF (paroxysmal atrial fibrillation) (Chronic) Altered mental status (Resolved) Altered mental status (Resolved) Anemia (Resolved) Anemia due to end stage renal disease (Chronic) Anemia in ESRD (end-stage renal disease) (Chronic) Aranesp 80 ug / wed Anemia in stage 3 chronic kidney disease (Resolved) Artificial cardiac pacemaker (Chronic) defib??? Blepharitis of eyelid of right eye (Resolved) CAD (coronary artery disease) (Chronic) Chest pain (Resolved) CHF (congestive heart failure) (Acute) Chronic anticoagulation (Chronic) clopidrogel Chronic hyponatremia (Chronic) Chronic narcotic use (Resolved) CKD (chronic kidney disease), stage III (Resolved) CKD (chronic kidney disease), stage IV (Chronic) Colitis (Resolved) Community acquired pneumonia (Resolved) Contusion of left hand including fingers (Resolved) Contusion of left hip and thigh (Resolved) Contusion of rib on right side (Resolved) Contusion of right hand including fingers (Resolved) CVA (cerebral vascular accident) (Resolved) Dehydration (Resolved) Dementia (Chronic) Diabetes mellitus type 2 with complications (Chronic) Allowed herself to run low or out of Insulin Diabetic ketoacidosis associated with type 2 diabetes mellitus (Resolved) Diabetic peripheral neuropathy (Chronic) severe; AFO braces bilateral feet/ankles DNR no code (do not resuscitate) (Chronic) End-stage renal disease on hemodialysis (Chronic) MWF Fatigue (Resolved) Fever and chills (Resolved) Hematochezia (Acute) Hematoma (Resolved) Hemicrania (Resolved) History of recurrent UTI (urinary tract infection) (Chronic) Hyperglycemia due to type 2 diabetes mellitus (Chronic) Hypertensive renal disease (Chronic) BP at goal 138/66 ct coreg 6.25mg bid ct furosemide 20mg po daily follow low sodium diet will add losartan next visit if renal function is stable and she has no further complications Hypoglycemia (Resolved) Hypoglycemia (Resolved) Hypoglycemia (Resolved) Hypoglycemia (Resolved) Hyponatremia (Chronic) Result of hyperglycemia with H2O shift to blunt the rise in serum osm but case "pseudohyponatremia" Hypothyroidism, acquired (Chronic) Hypoxia (Resolved) Hypoxia (Resolved) Injury of right rotator cuff (Resolved) Left hand pain (Resolved) Lower gastrointestinal hemorrhage (Chronic) Metabolic acidosis (Resolved) Myoclonus (Chronic) Pneumonia (Resolved) Pneumonia (Resolved) Prerenal renal failure (Resolved) Right hand pain (Resolved) Secondary hyperparathyroidism of renal origin (Chronic) Seizure disorder (Chronic) Sinusitis (Resolved) Status post insertion of drug-eluting stent into left anterior descending (LAD) artery (Chronic) Sternal pain (Resolved) Syncope and collapse (Resolved) Syncope and collapse (Resolved) Toenail avulsion (Resolved) Upper gastrointestinal hemorrhage (Acute) Upper respiratory infection (Resolved) Urinary tract infection (Resolved) UTI (urinary tract infection) (Resolved) Vasovagal syncope (Resolved) Surgical History (Updated 10/14/19 @ 20:44 by Nick Moscoso DO) History of cataract extraction with lens replacement (Acute) Status cardiac pacemaker (Chronic) seen by Dr. Whitman, [facility] Social History Smoking Status: Former smoker Alcohol Intake Frequency: does not drink Substance Use: does not use Exam Narrative Narrative: Narrative: General Limitations: altered mental status Head Head: atraumatic, normocephalic and normal inspection Eye Eye: Present normal appearance and EOMI; Absent conjunctival injection ENT ENT: Present mucous membranes moist Chest Chest: Present normal inspection and symmetric chest wall rise Respiratory Respiratory: Present normal lung sounds bilaterally; Absent respiratory distress, rales/crackles and wheezes Cardiovascular Cardiovascular: Present regular rate, normal rhythm and normal heart sounds Adbominal Abdominal: Present soft; Absent distention and tenderness Extremities Extremities: Absent pedal edema and pretibial edema Skin Skin: Present warm and dry; Absent diaphoresis Course Vital Signs Vital signs: Vital Signs Temperature 101.5 F H 02/16/20 12:35 Pulse Rate 94 H 02/16/20 12:35 Respiratory Rate 16 02/16/20 12:35 Blood Pressure 152/84 02/16/20 12:35 Pulse Oximetry (%) 88 L 02/16/20 12:35 Temperature 101.5 F H 02/16/20 12:35 Pulse Rate 60 02/16/20 14:16 Respiratory Rate 16 02/16/20 14:16 Blood Pressure 162/63 02/16/20 14:16 Pulse Oximetry (%) 96 02/16/20 14:16 [facility] Narrative Medical decision making narrative: Narrative: This patient has left-sided infiltrate in her chest consistent with pneumonia. She did respond a little to the amp of D50 but still is not back to baseline. Dr. Pringle with her car framer says she is usually very argumentative and she is certainly not that at this time. Lab work was not very remarkable. She runs a chronic troponin of 0.12. I did discuss the case with Dr. Jolly the hospitalist and she will be admitted to the hospital. Lab Data Lab results reviewed: Yes I reviewed the patient's lab results. Result diagrams: 02/16/20 12:43 02/16/20 12:43 Labs: Lab Results 02/16/20 02/16/20 02/16/20 Range/Units 12:43 12:43 12:43 WBC 6.6 (4.50-11.00) K/mcL RBC 3.10 L (3.59-5.38) M/mcL Hgb 9.5 L (11.2-15.7) g/dL Hct 29.9 L (34.1-44.9) % MCV 96.5 (80.0-100.0) fL MCH 30.6 (26.0-34.0) pg MCHC 31.8 (31.0-36.0) g/dL RDW 16.4 H (11.5-14.5) % Plt Count 188 (140-440) K/mcL MPV 9.3 (7.4-10.4) fL Gran % 79.3 H (38.0-78.0) % Lymph % (Auto) 9.2 L (15.5-49.0) % [place] % (Auto) 7.4 (1.0-12.0) % Eos % (Auto) 3.6 (0.0-7.0) % Baso % (Auto) 0.5 (0.0-2.0) % Gran # 5.27 (1.80-8.00) K/mcL Lymph # (Auto) 0.61 L (1.50-4.80) K/mcL [place] # (Auto) 0.49 (0.10-0.90) K/mcL Eos # (Auto) 0.24 (0.00-0.70) K/mcL Baso # (Auto) 0.03 (0.00-0.30) K/mcL VBG Lactic Acid (0.5-2.0) mmol/L Sodium 132 L (133-145) mmol/L Potassium 5.2 H (3.3-5.1) mmol/L Chloride 90 L (96-108) mmol/L Carbon Dioxide 27 (22-30) mmol/L Anion Gap 15.0 (8-16) BUN 16 (8-23) mg/dl Creatinine 1.9 H (0.6-1.1) mg/dl GFR Calculation 25 Glucose 61 L (70-105) mg/dL Calcium 8.6 (8.6-10.4) mg/dl Total Bilirubin 0.7 (0.0-1.0) mg/dL AST 21 (0-37) U/l ALT 11 (0-40) U/l Alkaline Phosphatase 183 H (39-117) U/L Troponin T 0.12 H* (0-0.03) ng/ml NT-Pro-B Natriuret Pep (0-450) pg/ml Total Protein 6.8 (5.9-8.4) gm/dL Albumin 3.9 (3.2-5.2) gm/dL Globulin 2.9 (2.2-3.7) gm/dL Albumin/Globulin Ratio 1.3 (1.0-2.3) 02/16/20 02/16/20 Range/Units 12:43 12:48 WBC (4.50-11.00) K/mcL RBC (3.59-5.38) M/mcL Hgb (11.2-15.7) g/dL Hct (34.1-44.9) % MCV (80.0-100.0) fL MCH (26.0-34.0) pg MCHC (31.0-36.0) g/dL RDW (11.5-14.5) % Plt Count (140-440) K/mcL MPV (7.4-10.4) fL Gran % (38.0-78.0) % Lymph % (Auto) (15.5-49.0) % [place] % (Auto) (1.0-12.0) % Eos % (Auto) (0.0-7.0) % Baso % (Auto) (0.0-2.0) % Gran # (1.80-8.00) K/mcL Lymph # (Auto) (1.50-4.80) K/mcL [place] # (Auto) (0.10-0.90) K/mcL Eos # (Auto) (0.00-0.70) K/mcL Baso # (Auto) (0.00-0.30) K/mcL VBG Lactic Acid 0.9 (0.5-2.0) mmol/L Sodium (133-145) mmol/L Potassium (3.3-5.1) mmol/L Chloride (96-108) mmol/L Carbon Dioxide (22-30) mmol/L Anion Gap (8-16) BUN (8-23) mg/dl Creatinine (0.6-1.1) mg/dl GFR Calculation Glucose (70-105) mg/dL Calcium (8.6-10.4) mg/dl Total Bilirubin (0.0-1.0) mg/dL AST (0-37) U/l ALT (0-40) U/l Alkaline Phosphatase (39-117) U/L Troponin T (0-0.03) ng/ml NT-Pro-B Natriuret Pep 04346.0 H (0-450) pg/ml Total Protein (5.9-8.4) gm/dL Albumin (3.2-5.2) gm/dL Globulin (2.2-3.7) gm/dL Albumin/Globulin Ratio (1.0-2.3) Radiology Data Radiology results reviewed: Yes I reviewed the patient's radiology results. Discharge Plan Patient/Caregiver Discharge Instructions Pt seen by MANAGER INTEGR[employer]/PA only: No Clinical Impression: Pneumonia Patient Disposition: Xfer As Inpt ([facility]) Follow up with: Gifty Chisholm ARNP [Primary Care Provider] - Prescriptions: No Action (DME) blood-glucose meter Misc See Rx Instructions .ROUTE .MEDSUPPLY Qty: 1 RF: 0 levetiracetam 500 MG tablet 500 mg PO BID RF: 0 acetaminophen 325 MG tablet 650 mg PO Q4-6HP PRN (Reason: Pain/Fever > 101) Qty: 0 RF: 0 Accu-Chek 1 EACH strip 1 each FS ACHS RF: 0 loperamide 2 MG capsule 2 mg PO BIDP PRN (Reason: Diarrhea) RF: 0 captopril 12.5 MG tablet 12.5 mg PO TID Qty: 90 RF: 0 hydrocodone-acetaminophen 1 TAB tablet 1 tab PO QHS RF: 0 levothyroxine 125 MCG tablet 125 mcg PO DAILY RF: 0 lidocaine-prilocaine 1 EACH kit 1 each TP MOWEFR RF: 0 nitroglycerin 0.4 MG tablet, sublingual 0.4 mg SL Q5M PRN (Reason: Chest Pain) RF: 0 sennosides 8.6 MG capsule 2 tab PO DAILY RF: 0 polymyxin B sulf-trimethoprim 10 ML drops 1 gtt BOTH EYES Q6HP PRN (Reason: Dry Eye(S)) RF: 0 B complex-vitamin C-folic acid 1 EACH tablet 1 tab PO DAILY RF: 0 atorvastatin 80 mg Tablet 80 mg PO QHS RF: 0 pantoprazole 40 mg Tablet,Delayed Release (Dr/Ec) 40 mg PO DAILY RF: 0 sevelamer carbonate 800 mg Tablet 1,600 mg PO TID RF: 0 Dialyvite 800 with Zinc 15 1 tab PO DAILY RF: 0 gabapentin 300 mg capsule 300 mg PO BID RF: 0 cefuroxime axetil 500 mg Tablet 500 mg PO MoWeFr@1400 Qty: 2 RF: 0 carvedilol 12.5 mg tablet 12.5 mg PO BID RF: 0 Levemir FlexTouch U-100 Insuln 100 unit/mL (3 mL) insulin pen 8 unit SUBCUT BID RF: 0 insulin aspart U-100 [Novolog Flexpen U-100 Insulin] 100 unit/mL (3 mL) insulin pen 2 unit SUBCUT ACHS RF: 0
[2020-02-16] MEDS ORDERED: ACETAMINOPHEN 1,000 MG/100 ML BOTTLE IV ONE (13:11)
--- NOTE | 2020-02-16 13:16 | XRay Report ---
CLINICAL INFORMATION: fever COMPARISON: 12/14/2019 FINDINGS: Heart is moderately enlarged but unchanged. Pacer leads in stable satisfactory position. Mediastinum is unremarkable. Moderate interstitial disease has worsened throughout both lungs - predominantly in the left midlung and right base. Underlying pulmonary vasculature appears grossly normal. IMPRESSION: Moderate diffuse interstitial disease most severe in the left midlung and right lower lung. Consider aspiration or infection Interpreted and Authenticated by: Pradeep Martines 02/16/20
[2020-02-16 13:42] LABS: Basophils # (Auto) 0.03 K/mcL (0.00-0.30); Basophils % (Auto) 0.5 % (0.0-2.0); Eosinophils # (Auto) 0.24 K/mcL (0.00-0.70); Eosinophils % (Auto) 3.6 % (0.0-7.0); Granulocytes % (Auto) 79.3 % (38.0-78.0); Hematocrit 29.9 % (34.1-44.9); Hemoglobin 9.5 g/dL (11.2-15.7); Lymphocytes # (Auto) 0.61 K/mcL (1.50-4.80); Lymphocytes % (Auto) 9.2 % (15.5-49.0); Mean Cell Volume 96.5 fL (80.0-100.0); Mean Corpuscular HGB Conc 31.8 g/dL (31.0-36.0); Mean Platelet Volume 9.3 fL (7.4-10.4); Monocytes # (Auto) 0.49 K/mcL (0.10-0.90); Monocytes % (Auto) 7.4 % (1.0-12.0); Platelet Count 188 K/mcL (140-440); Red Cell Distribution Width 16.4 % (11.5-14.5); WBC 6.6 K/mcL (4.50-11.00)
[2020-02-16 14:15] LABS: ALT/SGPT 11 U/l (0-40); AST/SGOT 21 U/l (0-37); Albumin 3.9 gm/dL (3.2-5.2); Albumin/Globulin Ratio 1.3 (1.0-2.3); Alkaline Phosphatase 183 U/L (39-117); Bilirubin,Total 0.7 mg/dL (0.0-1.0); Blood Urea Nitrogen 16 mg/dl (8-23); Calcium 8.6 mg/dl (8.6-10.4); Carbon Dioxide 27 mmol/L (22-30); Globulin 2.9 gm/dL (2.2-3.7); Glomerular Filtration Rate 25; Glucose 61 mg/dL (70-105)
[2020-02-16 14:18] LABS: Chloride 90 mmol/L (96-108)
[2020-02-16] MEDS ORDERED: cefTRIAXone 1 GM VIAL IV ONE (14:36)
[2020-02-16] MEDS ORDERED: DOXYCYCLINE 100 MG in DEXTROSE 5% IN WATER 100 ML IV ONE (14:36)
--- NOTE | 2020-02-16 15:06 | Emergency Department Note ---
HPI General Source: patient and other Mode of arrival: wheelchair Limitations: altered mental status History of Present Illness HPI Narrative: Narrative: Related Data Home Medications Medication Instructions Recorded Confirmed levetiracetam 500 mg PO BID 11/10/16 01/18/20 loperamide 2 mg PO BIDP PRN 03/04/19 01/19/20 hydrocodone-acetaminophen 1 tab PO QHS 07/09/19 01/19/20 levothyroxine 125 mcg PO DAILY 07/09/19 01/18/20 lidocaine-prilocaine 1 each TP MOWEFR 07/09/19 01/19/20 nitroglycerin 0.4 mg SL Q5M PRN 07/09/19 01/18/20 polymyxin B sulf-trimethoprim 1 gtt BOTH EYES Q6HP PRN 07/09/19 01/19/20 sennosides 2 tab PO DAILY 07/09/19 01/19/20 B complex-vitamin C-folic acid 1 tab PO DAILY 09/29/19 01/19/20 Dialyvite 800 with Zinc 15 1 tab PO DAILY 01/18/20 01/19/20 atorvastatin 80 mg PO QHS 01/18/20 01/18/20 pantoprazole 40 mg PO DAILY 01/18/20 01/18/20 sevelamer carbonate 1,600 mg PO TID 01/18/20 01/19/20 gabapentin 300 mg PO BID 01/19/20 01/19/20 Levemir FlexTouch U-100 Insuln 8 unit SUBCUT BID 01/20/20 01/20/20 carvedilol 12.5 mg PO BID 01/20/20 01/20/20 insulin aspart U-100 [Novolog 2 unit SUBCUT ACHS 01/20/20 01/20/20 Flexpen U-100 Insulin] Previous Rx's Medication Instructions Recorded acetaminophen 650 mg PO Q4-6HP PRN #0 tab 11/24/16 Accu-Chek 1 each FS ACHS strip 09/03/17 captopril 12.5 mg PO TID #90 tab 03/09/19 blood-glucose meter #1 each 11/26/19 cefuroxime axetil 500 mg PO MoWeFr@1400 #2 tab 01/20/20 Allergies Allergy/AdvReac Type Severity Reaction Status Date / Time lactose AdvReac Mild Diarrhea Verified 02/16/20 12:40 Review of Systems ROS ROS Narrative: Narrative: PFSH Narrative Patient History Narrative: Narrative: Medical/Surgical/Family History All Active Problems (Updated 02/16/20 @ 15:01 by Khalif Fuller MD) Pneumonia (Acute) ESRD (end stage renal disease) on dialysis (Acute) Hyperosmolar (nonketotic) coma (Acute) Anemia (Acute) UTI (urinary tract infection) (Acute) Hyperglycemia (Acute) Hyponatremia (Acute) Medication refill (Acute) Diabetes (Acute) Chronic kidney disease (CKD) (Acute) Dialysis patient (Acute) DNR no code (do not resuscitate) (Chronic) Anemia in ESRD (end-stage renal disease) (Chronic) Seizure disorder (Chronic) Hyperglycemia due to type 2 diabetes mellitus (Chronic) Chronic hyponatremia (Chronic) Lower gastrointestinal hemorrhage (Chronic) Hematochezia (Acute) Upper gastrointestinal hemorrhage (Acute) Status post insertion of drug-eluting stent into left anterior descending (LAD) artery (Chronic) CAD (coronary artery disease) (Chronic) Status cardiac pacemaker (Chronic) AF (paroxysmal atrial fibrillation) (Chronic) CKD (chronic kidney disease), stage IV (Chronic) CHF (congestive heart failure) (Acute) Chronic anticoagulation (Chronic) Artificial cardiac pacemaker (Chronic) Diabetes mellitus type 2 with complications (Chronic) Diabetic peripheral neuropathy (Chronic) Hypothyroidism, acquired (Chronic) History of recurrent UTI (urinary tract infection) (Chronic) Myoclonus (Chronic) Dementia (Chronic) Secondary hyperparathyroidism of renal origin (Chronic) End-stage renal disease on hemodialysis (Chronic) Anemia due to end stage renal disease (Chronic) Hyponatremia (Chronic) Hypertensive renal disease (Chronic) Medical History (Updated 02/16/20 @ 15:01 by Khalif Fuller MD) Acute exacerbation of CHF (congestive heart failure) (Resolved) Acute kidney injury superimposed on chronic kidney disease (Resolved) Acute on chronic renal failure (Resolved) Acute renal failure superimposed on stage 3 chronic kidney disease (Resolved) Acute respiratory failure with hypoxia (Resolved) AF (paroxysmal atrial fibrillation) (Chronic) Altered mental status (Resolved) Altered mental status (Resolved) Anemia (Resolved) Anemia due to end stage renal disease (Chronic) Anemia in ESRD (end-stage renal disease) (Chronic) Aranesp 80 ug / wed Anemia in stage 3 chronic kidney disease (Resolved) Artificial cardiac pacemaker (Chronic) defib??? Blepharitis of eyelid of right eye (Resolved) CAD (coronary artery disease) (Chronic) Chest pain (Resolved) CHF (congestive heart failure) (Acute) Chronic anticoagulation (Chronic) clopidrogel Chronic hyponatremia (Chronic) Chronic narcotic use (Resolved) CKD (chronic kidney disease), stage III (Resolved) CKD (chronic kidney disease), stage IV (Chronic) Colitis (Resolved) Community acquired pneumonia (Resolved) Contusion of left hand including fingers (Resolved) Contusion of left hip and thigh (Resolved) Contusion of rib on right side (Resolved) Contusion of right hand including fingers (Resolved) CVA (cerebral vascular accident) (Resolved) Dehydration (Resolved) Dementia (Chronic) Diabetes mellitus type 2 with complications (Chronic) Allowed herself to run low or out of Insulin Diabetic ketoacidosis associated with type 2 diabetes mellitus (Resolved) Diabetic peripheral neuropathy (Chronic) severe; AFO braces bilateral feet/ankles DNR no code (do not resuscitate) (Chronic) End-stage renal disease on hemodialysis (Chronic) MWF Fatigue (Resolved) Fever and chills (Resolved) Hematochezia (Acute) Hematoma (Resolved) Hemicrania (Resolved) History of recurrent UTI (urinary tract infection) (Chronic) Hyperglycemia due to type 2 diabetes mellitus (Chronic) Hypertensive renal disease (Chronic) BP at goal 138/66 ct coreg 6.25mg bid ct furosemide 20mg po daily follow low sodium diet will add losartan next visit if renal function is stable and she has no further complications Hypoglycemia (Resolved) Hypoglycemia (Resolved) Hypoglycemia (Resolved) Hypoglycemia (Resolved) Hyponatremia (Chronic) Result of hyperglycemia with H2O shift to blunt the rise in serum osm but ca se "pseudohyponatremia" Hypothyroidism, acquired (Chronic) Hypoxia (Resolved) Hypoxia (Resolved) Injury of right rotator cuff (Resolved) Left hand pain (Resolved) Lower gastrointestinal hemorrhage (Chronic) Metabolic acidosis (Resolved) Myoclonus (Chronic) Pneumonia (Resolved) Pneumonia (Resolved) Prerenal renal failure (Resolved) Right hand pain (Resolved) Secondary hyperparathyroidism of renal origin (Chronic) Seizure disorder (Chronic) Sinusitis (Resolved) Status post insertion of drug-eluting stent into left anterior descending (LAD) artery (Chronic) Sternal pain (Resolved) Syncope and collapse (Resolved) Syncope and collapse (Resolved) Toenail avulsion (Resolved) Upper gastrointestinal hemorrhage (Acute) Upper respiratory infection (Resolved) Urinary tract infection (Resolved) UTI (urinary tract infection) (Resolved) Vasovagal syncope (Resolved) Surgical History History of cataract extraction with lens replacement (Acute) Status cardiac pacemaker (Chronic) seen by [facility] Social History Smoking Status: Former smoker Alcohol Intake Frequency: does not drink Substance Use: does not use Exam Narrative Narrative: Narrative: General Limitations: altered mental status Course Vital Signs Vital signs: Vital Signs Temperature 38.6 C H 02/16/20 12:35 Pulse Rate 94 H 02/16/20 12:35 Respiratory Rate 16 02/16/20 12:35 Blood Pressure 152/84 02/16/20 12:35 Pulse Oximetry (%) 88 L 02/16/20 12:35 Temperature 38.6 C H 02/16/20 12:35 Pulse Rate 65 02/16/20 17:46 Respiratory Rate 15 02/16/20 17:46 Blood Pressure 172/59 02/16/20 17:21 Pulse Oximetry (%) 98 02/16/20 17:46 MDM MDM Narrative Medical decision making narrative: Narrative: Lab Data Result diagrams: 02/16/20 12:43 02/16/20 12:43 Labs: Lab Results 02/16/20 02/16/20 02/16/20 Range/Units 12:43 12:43 12:43 WBC 6.6 (4.50-11.00) K/mcL RBC 3.10 L (3.59-5.38) M/mcL Hgb 9.5 L (11.2-15.7) g/dL Hct 29.9 L (34.1-44.9) % MCV 96.5 (80.0-100.0) fL MCH 30.6 (26.0-34.0) pg MCHC 31.8 (31.0-36.0) g/dL RDW 16.4 H (11.5-14.5) % Plt Count 188 (140-440) K/mcL MPV 9.3 (7.4-10.4) fL Gran % 79.3 H (38.0-78.0) % Lymph % (Auto) 9.2 L (15.5-49.0) % Centre % (Auto) 7.4 (1.0-12.0) % Eos % (Auto) 3.6 (0.0-7.0) % Baso % (Auto) 0.5 (0.0-2.0) % Gran # 5.27 (1.80-8.00) K/mcL Lymph # (Auto) 0.61 L (1.50-4.80) K/mcL Centre # (Auto) 0.49 (0.10-0.90) K/mcL Eos # (Auto) 0.24 (0.00-0.70) K/mcL Baso # (Auto) 0.03 (0.00-0.30) K/mcL VBG Lactic Acid (0.5-2.0) mmol/L Sodium 132 L (133-145) mmol/L Potassium 5.2 H (3.3-5.1) mmol/L Chloride 90 L (96-108) mmol/L Carbon Dioxide 27 (22-30) mmol/L Anion Gap 15.0 (8-16) BUN 16 (8-23) mg/dl Creatinine 1.9 H (0.6-1.1) mg/dl GFR Calculation 25 Glucose 61 L (70-105) mg/dL Calcium 8.6 (8.6-10.4) mg/dl Total Bilirubin 0.7 (0.0-1.0) mg/dL AST 21 (0-37) U/l ALT 11 (0-40) U/l Alkaline Phosphatase 183 H (39-117) U/L Troponin T 0.12 H* (0-0.03) ng/ml NT-Pro-B Natriuret Pep (0-450) pg/ml Total Protein 6.8 (5.9-8.4) gm/dL Albumin 3.9 (3.2-5.2) gm/dL Globulin 2.9 (2.2-3.7) gm/dL Albumin/Globulin Ratio 1.3 (1.0-2.3) Procalcitonin (<0.10) ng/mL Random Cortisol ug/dl 02/16/20 02/16/20 02/16/20 Range/Units 12:43 12:43 12:43 WBC (4.50-11.00) K/mcL RBC (3.59-5.38) M/mcL Hgb (11.2-15.7) g/dL Hct (34.1-44.9) % MCV (80.0-100.0) fL MCH (26.0-34.0) pg MCHC (31.0-36.0) g/dL RDW (11.5-14.5) % Plt Count (140-440) K/mcL MPV (7.4-10.4) fL Gran % (38.0-78.0) % Lymph % (Auto) (15.5-49.0) % Centre % (Auto) (1.0-12.0) % Eos % (Auto) (0.0-7.0) % Baso % (Auto) (0.0-2.0) % Gran # (1.80-8.00) K/mcL Lymph # (Auto) (1.50-4.80) K/mcL Centre # (Auto) (0.10-0.90) K/mcL Eos # (Auto) (0.00-0.70) K/mcL Baso # (Auto) (0.00-0.30) K/mcL VBG Lactic Acid (0.5-2.0) mmol/L Sodium (133-145) mmol/L Potassium (3.3-5.1) mmol/L Chloride (96-108) mmol/L Carbon Dioxide (22-30) mmol/L Anion Gap (8-16) BUN (8-23) mg/dl Creatinine (0.6-1.1) mg/dl GFR Calculation Glucose (70-105) mg/dL Calcium (8.6-10.4) mg/dl Total Bilirubin (0.0-1.0) mg/dL AST (0-37) U/l ALT (0-40) U/l Alkaline Phosphatase (39-117) U/L Troponin T (0-0.03) ng/ml NT-Pro-B Natriuret Pep 98570.0 H (0-450) pg/ml Total Protein (5.9-8.4) gm/dL Albumin (3.2-5.2) gm/dL Globulin (2.2-3.7) gm/dL Albumin/Globulin Ratio (1.0-2.3) Procalcitonin 0.15 (<0.10) ng/mL Random Cortisol 15.6 ug/dl 02/16/20 Range/Units 12:48 WBC (4.50-11.00) K/mcL RBC (3.59-5.38) M/mcL Hgb (11.2-15.7) g/dL Hct (34.1-44.9) % MCV (80.0-100.0) fL MCH (26.0-34.0) pg MCHC (31.0-36.0) g/dL RDW (11.5-14.5) % Plt Count (140-440) K/mcL MPV (7.4-10.4) fL Gran % (38.0-78.0) % Lymph % (Auto) (15.5-49.0) % Centre % (Auto) (1.0-12.0) % Eos % (Auto) (0.0-7.0) % Baso % (Auto) (0.0-2.0) % Gran # (1.80-8.00) K/mcL Lymph # (Auto) (1.50-4.80) K/mcL Centre # (Auto) (0.10-0.90) K/mcL Eos # (Auto) (0.00-0.70) K/mcL Baso # (Auto) (0.00-0.30) K/mcL VBG Lactic Acid 0.9 (0.5-2.0) mmol/L Sodium (133-145) mmol/L Potassium (3.3-5.1) mmol/L Chloride (96-108) mmol/L Carbon Dioxide (22-30) mmol/L Anion Gap (8-16) BUN (8-23) mg/dl Creatinine (0.6-1.1) mg/dl GFR Calculation Glucose (70-105) mg/dL Calcium (8.6-10.4) mg/dl Total Bilirubin (0.0-1.0) mg/dL AST (0-37) U/l ALT (0-40) U/l Alkaline Phosphatase (39-117) U/L Troponin T (0-0.03) ng/ml NT-Pro-B Natriuret Pep (0-450) pg/ml Total Protein (5.9-8.4) gm/dL Albumin (3.2-5.2) gm/dL Globulin (2.2-3.7) gm/dL Albumin/Globulin Ratio (1.0-2.3) Procalcitonin (<0.10) ng/mL Random Cortisol ug/dl Discharge Plan Patient/Caregiver Discharge Instructions Pt seen by [facility]/PA only: No Clinical Impression: Pneumonia Patient Disposition: Xfer As Inpt ([facility]) Follow up with: Gifty Chisholm ARNP [Primary Care Provider] - Prescriptions: No Action (DME) blood-glucose meter Misc See Rx Instructions .ROUTE .MEDSUPPLY Qty: 1 RF: 0 levetiracetam 500 MG tablet 500 mg PO BID RF: 0 acetaminophen 325 MG tablet 650 mg PO Q4-6HP PRN (Reason: Pain/Fever > 101) Qty: 0 RF: 0 Accu-Chek 1 EACH strip 1 each FS ACHS RF: 0 loperamide 2 MG capsule 2 mg PO BIDP PRN (Reason: Diarrhea) RF: 0 captopril 12.5 MG tablet 12.5 mg PO TID Qty: 90 RF: 0 hydrocodone-acetaminophen 1 TAB tablet 1 tab PO QHS RF: 0 levothyroxine 125 MCG tablet 125 mcg PO DAILY RF: 0 lidocaine-prilocaine 1 EACH kit 1 each TP MOWEFR RF: 0 nitroglycerin 0.4 MG tablet, sublingual 0.4 mg SL Q5M PRN (Reason: Chest Pain) RF: 0 sennosides 8.6 MG capsule 2 tab PO DAILY RF: 0 polymyxin B sulf-trimethoprim 10 ML drops 1 gtt BOTH EYES Q6HP PRN (Reason: Dry Eye(S)) RF: 0 B complex-vitamin C-folic acid 1 EACH tablet 1 tab PO DAILY RF: 0 atorvastatin 80 mg Tablet 80 mg PO QHS RF: 0 pantoprazole 40 mg Tablet,Delayed Release (Dr/Ec) 40 mg PO DAILY RF: 0 sevelamer carbonate 800 mg Tablet 1,600 mg PO TID RF: 0 Dialyvite 800 with Zinc 15 1 tab PO DAILY RF: 0 gabapentin 300 mg capsule 300 mg PO BID RF: 0 cefuroxime axetil 500 mg Tablet 500 mg PO MoWeFr@1400 Qty: 2 RF: 0 carvedilol 12.5 mg tablet 12.5 mg PO BID RF: 0 Levemir FlexTouch U-100 Insuln 100 unit/mL (3 mL) insulin pen 8 unit SUBCUT BID RF: 0 insulin aspart U-100 [Novolog Flexpen U-100 Insulin] 100 unit/mL (3 mL) insulin pen 2 unit SUBCUT ACHS RF: 0
--- NOTE | 2020-02-16 15:18 | Nephrology Consult Note ---
HPI Data of Consult Primary Care Provider: Gifty Chisholm Consult Narrative Chief complaint: alterated MS after HD Reason for consult: ESRD cc:: CC: Sent to the emergency room following dialysis today found to have a blood sugar of 61, had a spell/swoon HPI: Patient is well-known as she dialyzes Sunday and Sunday at [facility] dialysis unit under the care of Kellie Meza. The patient has diabetes, end-stage renal disease, congestive heart failure in association with atrial fibrillation status post permanent pacemaker placement. She is also had prior CVA and a seizure disorder. Her end-stage renal disease is complicated by the usual findings of anemia sec ondary hyperparathyroidism, labile blood pressure and inability to maintain control of her volume status. She is best described as strong-willed and often not the most compliant of patients in my opinion. The chest x-ray postdialysis still seems to have a fair amount of fluid and I favor fluid overload than pneumonia particularly with her chronically elevated proBNP level. Her troponin level is also chronically elevated from her renal disease and dialysis but is not demonstrating an upward trend. A procalcitonin level has been ordered as it will help discern fluid overload from a infectious etiology. She has had to be altered in the emergency room but this could just as well have to do with low blood sugar and unlikely to be sepsis as she is not exhibiting a high white count or lactic acidosis. Nonetheless she is been cultured and antibiotics planned until she rules out for a pneumonic process. My plan is to perform isolated ultrafiltration tomorrow to further reduce her fluid burden and see if this improves her chest x-ray. Selected Entries 02/16/20 14:16 Pulse Rate 60 Respiratory Rate 16 Blood Pressure 162/63 Pulse Oximetry (%) 96 Laboratory Tests 01/21/20 02/16/20 02/16/20 04:40 12:43 12:43 WBC 4.0 L 6.6 Hgb 9.5 L Hct 29.9 L MCV 96.5 Plt Count 188 Eos % (Auto) 3.6 VBG Lactic Acid Sodium 132 L Chloride 90 L Carbon Dioxide 27 BUN 16 Creatinine 1.9 H Glucose 61 L Calcium 8.6 Troponin T NT-Pro-B Natriuret Pep 02/16/20 02/16/20 02/16/20 12:43 12:43 12:48 WBC Hgb Hct MCV Plt Count Eos % (Auto) VBG Lactic Acid 0.9 Sodium Chloride Carbon Dioxide BUN Creatinine Glucose Calcium Troponin T 0.12 H* NT-Pro-B Natriuret Pep 39746.0 H CXR 02/16/2020 Prior echocardiogram showed dyskinesis with reduced LVEF of 47% grade 3/3 diastolic dysfunction, mitral regurgitation and an enlarged left atrium. So by history I suspect this is a volume overload issue and chronically so, as well as 4 episodes of hypoglycemia over the past year which may represent an inability to restore her blood sugar into the normal range after it drops down due to reduced gluconeogenesis seen in renal failure as well as there is any amyloid deposition of her adrenal gland which would show up as a decrease cortisol level when hypoglycemic. Doubt this is pneumonia and procal level should help. Today's dialysis run sheet was reviewed there is no hypotension tachycardia or excessive fluid removed. Review of Systems All systems: reviewed and no additional remarkable complaints except as stated Constitutional Constitutional: Absent chills, fever(s) and night sweats Cardiovascular Cardiovascular: Present as per HPI Gastrointestinal Gastrointestinal: Present as per HPI Musculoskeletal Musculoskeletal: Present muscle weakness Neurological Neurological: Present confusion, dizziness, memory loss and weakness Endocrine Additional comments: Fourth documented incidence of hypoglycemia this year Hematologic/Lymphatic Additional comments: Anemia of chronic kidney disease on Aranesp [facility] Medical History (Updated 02/16/20 @ 15:01 by Khalif Fuller MD) Acute exacerbation of CHF (congestive heart failure) (Resolved) Acute kidney injury superimposed on chronic kidney disease (Resolved) Acute on chronic renal failure (Resolved) Acute renal failure superimposed on stage 3 chronic kidney disease (Resolved) Acute respiratory failure with hypoxia (Resolved) AF (paroxysmal atrial fibrillation) (Chronic) Altered mental status (Resolved) Altered mental status (Resolved) Anemia (Resolved) Anemia due to end stage renal disease (Chronic) Anemia in ESRD (end-stage renal disease) (Chronic) Aranesp 80 ug / wed Anemia in stage 3 chronic kidney disease (Resolved) Artificial cardiac pacemaker (Chronic) defib??? Blepharitis of eyelid of right eye (Resolved) CAD (coronary artery disease) (Chronic) Chest pain (Resolved) CHF (congestive heart failure) (Acute) Chronic anticoagulation (Chronic) clopidrogel Chronic hyponatremia (Chronic) Chronic narcotic use (Resolved) CKD (chronic kidney disease), stage III (Resolved) CKD (chronic kidney disease), stage IV (Chronic) Colitis (Resolved) Community acquired pneumonia (Resolved) Contusion of left hand including fingers (Resolved) Contusion of left hip and thigh (Resolved) Contusion of rib on right side (Resolved) Contusion of right hand including fingers (Resolved) CVA (cerebral vascular accident) (Resolved) Dehydration (Resolved) Dementia (Chronic) Diabetes mellitus type 2 with complications (Chronic) Allowed herself to run low or out of Insulin Diabetic ketoacidosis associated with type 2 diabetes mellitus (Resolved) Diabetic peripheral neuropathy (Chronic) severe; AFO braces bilateral feet/ankles DNR no code (do not resuscitate) (Chronic) End-stage renal disease on hemodialysis (Chronic) MWF Fatigue (Resolved) Fever and chills (Resolved) Hematochezia (Acute) Hematoma (Resolved) Hemicrania (Resolved) History of recurrent UTI (urinary tract infection) (Chronic) Hyperglycemia due to type 2 diabetes mellitus (Chronic) Hypertensive renal disease (Chronic) BP at goal 138/66 ct coreg 6.25mg bid ct furosemide 20mg po daily follow low sodium diet will add losartan next visit if renal function is stable and she has no further complications Hypoglycemia (Resolved) Hypoglycemia (Resolved) Hypoglycemia (Resolved) Hypoglycemia (Resolved) Hyponatremia (Chronic) Result of hyperglycemia with H2O shift to blunt the rise in serum osm but case "pseudohyponatremia" Hypothyroidism, acquired (Chronic) Hypoxia (Resolved) Hypoxia (Resolved) Injury of right rotator cuff (Resolved) Left hand pain (Resolved) Lower gastrointestinal hemorrhage (Chronic) Metabolic acidosis (Resolved) Myoclonus (Chronic) Pneumonia (Resolved) Pneumonia (Resolved) Prerenal renal failure (Resolved) Right hand pain (Resolved) Secondary hyperparathyroidism of renal origin (Chronic) Seizure disorder (Chronic) Sinusitis (Resolved) Status post insertion of drug-eluting stent into left anterior descending (LAD) artery (Chronic) Sternal pain (Resolved) Syncope and collapse (Resolved) Syncope and collapse (Resolved) Toenail avulsion (Resolved) Upper gastrointestinal hemorrhage (Acute) Upper respiratory infection (Resolved) Urinary tract infection (Resolved) UTI (urinary tract infection) (Resolved) Vasovagal syncope (Resolved) Surgical History History of cataract extraction with lens replacement (Acute) Status cardiac pacemaker (Chronic) seen by Dr. Whitman [facility] Cardiology Social History smoking status: Former smoker alcohol intake frequency: does not drink substance use type: does not use MEDS/ALLERGIES Home Medications and Allergies Home Medications Medication Instructions Recorded Confirmed Type levetiracetam 500 mg PO BID 11/10/16 02/16/20 History acetaminophen 650 mg PO Q4-6HP PRN #0 tab 11/24/16 02/16/20 Rx Accu-Chek 1 each FS ACHS strip 09/03/17 02/16/20 Rx loperamide 2 mg PO BIDP PRN 03/04/19 02/16/20 History captopril 12.5 mg PO TID #90 tab 03/09/19 02/16/20 Rx hydrocodone-acetaminophen 1 tab PO QHS 07/09/19 02/16/20 History levothyroxine 125 mcg PO DAILY 07/09/19 02/16/20 History lidocaine-prilocaine 1 each TP MOWEFR 07/09/19 02/16/20 History nitroglycerin 0.4 mg SL Q5M PRN 07/09/19 02/16/20 History sennosides 2 tab PO DAILY 07/09/19 02/16/20 History B complex-vitamin C-folic acid 1 tab PO DAILY 09/29/19 02/16/20 History blood-glucose meter #1 each 11/26/19 Rx Dialyvite 800 with Zinc 15 1 tab PO DAILY 01/18/20 02/16/20 History atorvastatin 80 mg PO QHS 01/18/20 02/16/20 History pantoprazole 40 mg PO DAILY 01/18/20 02/16/20 History sevelamer carbonate 1,600 mg PO TID 01/18/20 02/16/20 History gabapentin 300 mg PO BID 01/19/20 02/16/20 History Levemir FlexTouch U-100 Insuln 8 unit SUBCUT DAILY 01/20/20 02/16/20 History carvedilol 6.25 mg PO BID 01/20/20 02/16/20 History cefuroxime axetil 500 mg PO MoWeFr@1400 #2 tab 01/20/20 Rx insulin aspart U-100 [Novolog 2 unit SUBCUT ACHS 01/20/20 02/16/20 History Flexpen U-100 Insulin] calcium lactate 650 mg PO DAILY 02/16/20 02/16/20 History cholecalciferol (vitamin D3) 2,000 units PO DAILY 02/16/20 02/16/20 History clonidine 0.2 mg PO BID 02/16/20 02/16/20 History Allergies Allergy/AdvReac Type Severity Reaction Status Date / Time lactose AdvReac Mild Diarrhea Verified 02/16/20 12:40 Physical Examination Vital Signs Vital signs: Temp Pulse Resp BP Pulse Ox 38.6 C H 60 16 162/63 96 02/16/20 12:35 02/16/20 14:16 02/16/20 14:16 02/16/20 14:16 02/16/20 14:16 General Appearance General appearance: chronically ill, fatigue and frail EENT EENT: ATNC, PERRL and mucous membranes dry Neck Neck: JVD and supple Respiratory Respiratory: no kyphosis, course breath sounds and rhonchi Cardiovascular Cardiology: no rub, edema (trace), regular rhythm and normal S1 Gastrointestinal Gastrointestinal: normoactive bowel sounds and no tenderness Integumentary Integumentary: no rash and warm and dry Neurologic Neurologic: no focal deficit, alert and oriented x3 and CN 3-12 intact Musculoskeletal Musculoskeletal: no cyanosis and no clubbing Psychiatric Psychiatric: mood/affect appropriate and cooperative (best described as stubborn and set in her ways) Results Lab Results Result Diagrams: 02/16/20 12:43 02/16/20 17:06 Lab results: Most recent lab results Calcium 8.6 mg/dl (8.6-10.4) 02/16/20 12:43 A/P Narrative A/P Narrative: 1. Hypoglycemia postdialysis Most likely due to the patient saying she takes her long-acting insulin twice a day. When on dialysis she has a constant amount of glucose and a dialysate but upon discontinuation of dialysis she has left to her own gluconeogenesis which may well be inadequate either because of adrenal insufficiency or renal failure as the kidneys are 1 of the major glycogenic organs in the body. Sepsis is a possibility but seems unlikely as she does not appear to be septic Mild hyper kalemia is probably due to low blood sugar and intracellular to extracellular shifting of potassium and should correct with pentecostal of normal blood sugar. Will check a cortisol level from blood sent from the ER as well as a procalcitonin level Agree with reduction of long-acting insulin and use of low-dose sliding scale short acting insulin though I doubt she will be compliant with this at home 2. Decompensated congestive heart failure I suspect her chest x-ray shows volume expansion and not an infectious infiltrate. This is supported by elevated BNP levels and prior echocardiography that shows reduced LVEF and grade 3/3 diastolic congestive heart failure. I suggested we do extra ultrafiltration tomorrow but she is refusing at this point. 3. Anemia of chronic kidney disease Continue Aranesp while in the hospital 4. Possible pneumonia No fever elevated white count pro calcitonin level pending Await results of blood cultures but suspect they are negative I think she would benefit from extra fluid removal not antibiotics SARS 2 coronavirus testing has been ordered and isolation until results are negative Time Spent With Patient Time: Total time spent is greater than 50% in coordination of care (as do cumented) at patient's floor/unit and/or counseling patient:
[2020-02-16] MEDS ORDERED: ONDANSETRON 4 MG/2 ML VIAL IV PRN (16:18)
[2020-02-16] MEDS ORDERED: DEXTROSE 50% 50 ML VIAL IV PRN (16:35)
[2020-02-16] MEDS ORDERED: DEXTROSE 31 GM ORAL.SUSP PO PRN (16:35)
--- NOTE | 2020-02-16 17:03 | Internal Med History&Physical ---
HPI History of Present Illness Patient information: Note initiated : 02/16/20 at 4:40 pm Service Date, if different from initiated Date: [] Patient: Shanda Rhodes a 74 y/o F admitted on for blood sugar problem. Chief Complaint: [] Chief complaint: passed out History of present illness: Ms. Rhodes is a 74 year old F with a history of diabetes, end-stage renal disease, congestive heart failure in association with atrial fibrillation status post permanent pacemaker placement who was brought to the ER due to 1 episode of syncope. Patient is a poor historian. Patient underwent dialysis today. After dialysis, she passed out. No witness. She is not sure for how long she lost consciousness. At that time, her blood sugar was 61. 1 amp D50 was given. When I saw this patient in the ER, she denied dizziness, nausea, vomiting or palpitation. She also denies fever, chills, chest pain, shortness of breath, abdominal pain, or diaphoresis. In the ER, chest x-ray showed aspiration or infection. Sugar level was a greater than 100. Review of Systems All systems: reviewed and no additional remarkable complaints except as stated [facility] Medical History (Updated 02/16/20 @ 15:01 by Khalif Fuller MD) Acute exacerbation of CHF (congestive heart failure) (Resolved) Acute kidney injury superimposed on chronic kidney disease (Resolved) Acute on chronic renal failure (Resolved) Acute renal failure superimposed on stage 3 chronic kidney disease (Resolved) Acute respiratory failure with hypoxia (Resolved) AF (paroxysmal atrial fibrillation) (Chronic) Altered mental status (Resolved) Altered mental status (Resolved) Anemia (Resolved) Anemia due to end stage renal disease (Chronic) Anemia in ESRD (end-stage renal disease) (Chronic) Aranesp 80 ug / wed Anemia in stage 3 chronic kidney disease (Resolved) Artificial cardiac pacemaker (Chronic) defib??? Blepharitis of eyelid of right eye (Resolved) CAD (coronary artery disease) (Chronic) Chest pain (Resolved) CHF (congestive heart failure) (Acute) Chronic anticoagulation (Chronic) clopidrogel Chronic hyponatremia (Chronic) Chronic narcotic use (Resolved) CKD (chronic kidney disease), stage III (Resolved) CKD (chronic kidney disease), stage IV (Chronic) Colitis (Resolved) Community acquired pneumonia (Resolved) Contusion of left hand including fingers (Resolved) Contusion of left hip and thigh (Resolved) Contusion of rib on right side (Resolved) Contusion of right hand including fingers (Resolved) CVA (cerebral vascular accident) (Resolved) Dehydration (Resolved) Dementia (Chronic) Diabetes mellitus type 2 with complications (Chronic) Allowed herself to run low or out of Insulin Diabetic ketoacidosis associated with type 2 diabetes mellitus (Resolved) Diabetic peripheral neuropathy (Chronic) severe; AFO braces bilateral feet/ankles DNR no code (do not resuscitate) (Chronic) End-stage renal disease on hemodialysis (Chronic) MWF Fatigue (Resolved) Fever and chills (Resolved) Hematochezia (Acute) Hematoma (Resolved) Hemicrania (Resolved) History of recurrent UTI (urinary tract infection) (Chronic) Hyperglycemia due to type 2 diabetes mellitus (Chronic) Hypertensive renal disease (Chronic) BP at goal 138/66 ct coreg 6.25mg bid ct furosemide 20mg po daily follow low sodium diet will add losartan next visit if renal function is stable and she has no further complications Hypoglycemia (Resolved) Hypoglycemia (Resolved) Hypoglycemia (Resolved) Hypoglycemia (Resolved) Hyponatremia (Chronic) Result of hyperglycemia with H2O shift to blunt the rise in serum osm but case "pseudohyponatremia" Hypothyroidism, acquired (Chronic) Hypoxia (Resolved) Hypoxia (Resolved) Injury of right rotator cuff (Resolved) Left hand pain (Resolved) Lower gastrointestinal hemorrhage (Chronic) Metabolic acidosis (Resolved) Myoclonus (Chronic) Pneumonia (Resolved) Pneumonia (Resolved) Prerenal renal failure (Resolved) Right hand pain (Resolved) Secondary hyperparathyroidism of renal origin (Chronic) Seizure disorder (Chronic) Sinusitis (Resolved) Status post insertion of drug-eluting stent into left anterior descending (LAD) artery (Chronic) Sternal pain (Resolved) Syncope and collapse (Resolved) Syncope and collapse (Resolved) Toenail avulsion (Resolved) Upper gastrointestinal hemorrhage (Acute) Upper respiratory infection (Resolved) Urinary tract infection (Resolved) UTI (urinary tract infection) (Resolved) Vasovagal syncope (Resolved) Surgical History History of cataract extraction with lens replacement (Acute) Status cardiac pacemaker (Chronic) seen by Dr. Whitman [facility] Cardiology Social History smoking status: Former smoker alcohol intake frequency: does not drink substance use type: does not use MEDS/ALLERGIES Home Medications and Allergies Home Medications Medication Instructions Recorded Confirmed Type levetiracetam 500 mg PO BID 11/10/16 01/18/20 History acetaminophen 650 mg PO Q4-6HP PRN #0 tab 11/24/16 01/18/20 Rx Accu-Chek 1 each FS ACHS strip 09/03/17 10/08/19 Rx loperamide 2 mg PO BIDP PRN 03/04/19 01/19/20 History captopril 12.5 mg PO TID #90 tab 03/09/19 01/19/20 Rx hydrocodone-acetaminophen 1 tab PO QHS 07/09/19 01/19/20 History levothyroxine 125 mcg PO DAILY 07/09/19 01/18/20 History lidocaine-prilocaine 1 each TP MOWEFR 07/09/19 01/19/20 History nitroglycerin 0.4 mg SL Q5M PRN 07/09/19 01/18/20 History polymyxin B sulf-trimethoprim 1 gtt BOTH EYES Q6HP PRN 07/09/19 01/19/20 History sennosides 2 tab PO DAILY 07/09/19 01/19/20 History B complex-vitamin C-folic acid 1 tab PO DAILY 09/29/19 01/19/20 History blood-glucose meter #1 each 11/26/19 Rx Dialyvite 800 with Zinc 15 1 tab PO DAILY 01/18/20 01/19/20 History atorvastatin 80 mg PO QHS 01/18/20 01/18/20 History pantoprazole 40 mg PO DAILY 01/18/20 01/18/20 History sevelamer carbonate 1,600 mg PO TID 01/18/20 01/19/20 History gabapentin 300 mg PO BID 01/19/20 01/19/20 History Levemir FlexTouch U-100 Insuln 8 unit SUBCUT BID 01/20/20 01/20/20 History carvedilol 12.5 mg PO BID 01/20/20 01/20/20 History cefuroxime axetil 500 mg PO MoWeFr@1400 #2 tab 01/20/20 Rx insulin aspart U-100 [Novolog 2 unit SUBCUT ACHS 01/20/20 01/20/20 History Flexpen U-100 Insulin] Allergies Allergy/AdvReac Type Severity Reaction Status Date / Time lactose AdvReac Mild Diarrhea Verified 02/16/20 12:40 EXAM Constitutional Vitals: Temp Pulse Resp BP Pulse Ox 101.5 F H 72 20 153/95 96 02/16/20 12:35 02/16/20 15:31 02/16/20 15:56 02/16/20 15:47 02/16/20 15:31 Additional findings Additional findings: General - No acute distress Eyes - PERRLA, EOM intact ENT no rhinorrhea, no noticeable or palpable swelling, no redness or rash around throat or on face Neck supple, no JVD, no thyromegaly Respiratory: Lungs -clear, no wheezing or crackles. Cardiovascular - RRR no m/r/g, GI - Normal bowel sounds, no distended, soft. Extremeties - No edema, cyanosis or clubbing Hemo/lymphatic/immune no lymphadenopathy Neurological Alert and oriented x 3, no focal neurological deficits. Psychiatry flat affect DATA Data Completed and Pending Labs on day of discharge: Labs from last 24 hours 02/16/20 02/16/20 02/16/20 15:25 12:48 12:43 WBC RBC Hgb Hct MCV MCH MCHC RDW Plt Count MPV Gran % Lymph % (Auto) Charlton % (Auto) Eos % (Auto) Baso % (Auto) Gran # Lymph # (Auto) Charlton # (Auto) Eos # (Auto) Baso # (Auto) VBG Lactic Acid 0.9 Sodium Potassium Chloride Carbon Dioxide Anion Gap BUN Creatinine GFR Calculation Glucose Calcium Total Bilirubin AST ALT Alkaline Phosphatase Troponin T NT-Pro-B Natriuret Pep Total Protein Albumin Globulin Albumin/Globulin Ratio Procalcitonin Random Cortisol 15.6 Nasal/Oral COVID-19 PCR Pending COVID-19 PCR Interp Pending 02/16/20 02/16/20 02/16/20 12:43 12:43 12:43 WBC RBC Hgb Hct MCV MCH MCHC RDW Plt Count MPV Gran % Lymph % (Auto) Charlton % (Auto) Eos % (Auto) Baso % (Auto) Gran # Lymph # (Auto) Charlton # (Auto) Eos # (Auto) Baso # (Auto) VBG Lactic Acid Sodium Potassium Chloride Carbon Dioxide Anion Gap BUN Creatinine GFR Calculation Glucose Calcium Total Bilirubin AST ALT Alkaline Phosphatase Troponin T 0.12 H* NT-Pro-B Natriuret Pep 19688.0 H Total Protein Albumin Globulin Albumin/Globulin Ratio Procalcitonin 0.15 Random Cortisol Nasal/Oral COVID-19 PCR COVID-19 PCR Interp 02/16/20 02/16/20 12:43 12:43 WBC 6.6 RBC 3.10 L Hgb 9.5 L Hct 29.9 L MCV 96.5 MCH 30.6 MCHC 31.8 RDW 16.4 H Plt Count 188 MPV 9.3 Gran % 79.3 H Lymph % (Auto) 9.2 L Charlton % (Auto) 7.4 Eos % (Auto) 3.6 Baso % (Auto) 0.5 Gran # 5.27 Lymph # (Auto) 0.61 L Charlton # (Auto) 0.49 Eos # (Auto) 0.24 Baso # (Auto) 0.03 VBG Lactic Acid Sodium 132 L Potassium 5.2 H Chloride 90 L Carbon Dioxide 27 Anion Gap 15.0 BUN 16 Creatinine 1.9 H GFR Calculation 25 Glucose 61 L Calcium 8.6 Total Bilirubin 0.7 AST 21 ALT 11 Alkaline Phosphatase 183 H Troponin T NT-Pro-B Natriuret Pep Total Protein 6.8 Albumin 3.9 Globulin 2.9 Albumin/Globulin Ratio 1.3 Procalcitonin Random Cortisol Nasal/Oral COVID-19 PCR COVID-19 PCR Interp A/P Narrative A/P Narrative: 1. Syncope Unknown etiology. It could be due to hypoglycemia or hypotension after dialysis. 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 Hypoglycemia 1 episode of hypoglycemia Low dose insulin sliding scale Monitor 3. Pneumonia? CXR showed Moderate diffuse interstitial disease most severe in the left midlung and right lower lung. Consider aspiration or infection Denies cough or sob. Procalcitonin neg No leukocytosis But she did have a fever in the ER, > 101. I would like to start her on Zosyn and azithromycin COVID-19 screening, special isolation Strep screening Blood culture and sputum culture 4. CHF exacerbation BNP 96452 Intake and output Patient received dialysis today and possibly tomorrow I would not give the patient Lasix now 5. DM type 2 with peripheral neuropathy and nephropathy Hemoglobin A1c 11.4 Insulin sliding scale, low-grade Continue home medication 6. Anemia in ESRD Repeat CBC in morning 7. CAD, s/p stenting Continue home medication including statin 8. paroxysmal atrial fibrillation Heart rate controlled Patient is not on anticoagulation. We will discuss with patient 9. ESRD on HD (MWF) Nephrology Dr. Pringle on board 10. Elevation of troponin Patient has a chronic elevation of troponin Denies chest pain Repeated troponin EKG Explained to the patient that there is no pelota maker or stress test available in this hospital. Patient fully understood and still would like to stay in the hospital. Aspirin and statin 11. HTN Continue home medication 12. Hyperkalemia Potassium 5.2. I doubt about this number because the patient received dialysis today. Repeat BMP 13. DVT prophylaxis: Heparin 14. CODE STATUS: DNR and DNI. Discussed with the patient with the PRODUCT DEVELOPER. She refused CPR and intubation. Time Spent With Patient Time: Total time spent is greater than 50% in coordination of care (as documented) at patient's floor/unit and/or counseling patient:
--- NOTE | 2020-02-16 17:10 | Event Note ---
Event Note Event Note: Advanced Care Planning Documents: Parties in Attendance: pt, CLAIM ADMINISTRATOR and the news writer. Decisional Capacity: yes (pt is alert and answers questions appropriately) RN and I explained CPR and intubation in detail to her. She declined CPR and intubation. She would like to do nothing for her.
[2020-02-16] MEDS: AZITHROMYCIN 500 MG in DEXTROSE 5% IN WATER 250 ML IV SCH (17:20)
[2020-02-16] MEDS: INSULIN LISPRO 1 UNIT/0.01 ML UNIT SQ SCH ×2 (17:32→21:30)
--- NOTE | 2020-02-16 17:43 | Cat Scan Report ---
CLINICAL INFORMATION: Syncope COMPARISON: 09/29/2019 TECHNIQUE: 2.5 mm helical slices were obtained in the skull base to vertex. Following reconstruction, axial reformatted images were reviewed at bone and parenchymal windows. The exam was performed using radiation dose optimization techniques including, but not limited to, automated exposure control, adjustment of the mA and/or kV according to patient size and use of iterative reconstruction technique. FINDINGS: The ventricles, sulci, fissures, and cisterns are normal in size and configuration for age. No extra-axial fluid collections are identified. The cerebrum, brainstem and cerebellum are unremarkable. There is no evidence of hemorrhage, mass effect, or edema. Bone windows show no osseous abnormality. IMPRESSION: Normal head CT without contrast for age. Moderate right and mild left mastoiditis. Interpreted and Authenticated by: Pradeep Martines 02/16/20
[2020-02-16 18:10] LABS: INR 1.2 (0.9-1.1); Prothrombin Time 15.5 sec (11.9-14.5)
[2020-02-16 18:27] LABS: Blood Urea Nitrogen 21 mg/dl (8-23); Calcium 8.4 mg/dl (8.6-10.4); Carbon Dioxide 31 mmol/L (22-30); Glomerular Filtration Rate 21; Glucose 133 mg/dL (70-105)
[2020-02-16 18:32] LABS: Chloride 89 mmol/L (96-108)
[2020-02-16] MEDS: PIPERACILLIN SODIUM/TAZOBACTAM 2.25 GM in DEXTROSE 5% IN WATER 50 ML IV SCH (20:06)
[2020-02-16] MEDS: 0.9 % SODIUM CHLORIDE 10 ML SYRINGE IV SCH (21:07)
[2020-02-16] MEDS: DOCUSATE SODIUM 100 MG CAPSULE PO SCH (21:29)
[2020-02-16] MEDS: HEPARIN 5,000 UNIT/ML VIAL SQ SCH (21:30)
[2020-02-16 22:30] LABS: Appearance,Urine HAZY; Bacteria,Urine 0 /hpf (0); Bilirubin,Urine NEG (NEG); Color,Urine YELLOW; Culture Indicated,Urine YES; Glucose,Urine (UA) 50 mg/dL (NEG); Ketones,Urine NEG (NEG); Leukocyte Esterase,Urine 500 /uL (NEG); Nitrate,Urine NEG (NEG); Protein,Urine >=500 mg/dL (NEG); Specific Gravity,Urine 1.015 (1.000-1.035); Urine Blood NEG mg/dL (<0.03); Urine RBC 11 /hpf (0-1); Urine Squamous Epithelial Cell 3 /hpf (0-4); Urine Transitional Epi Cells 1 /hpf (0-2); Urine WBC > 182 /hpf (0-4); Urobilinogen,Urine NEG (NEG)
[2020-02-17] MEDS ORDERED: HYDROcodone/APAP 5/325MG TABLET PO PRN ×2 (02:28→06:45)
[2020-02-17] MEDS ORDERED: HYDROcodone/APAP 5/325MG TABLET PO ONE (02:37)
[2020-02-17] MEDS: 0.9 % SODIUM CHLORIDE 10 ML SYRINGE IV SCH ×4 (05:08→22:34)
[2020-02-17 06:29] LABS: Basophils # (Auto) 0.05 K/mcL (0.00-0.30); Basophils % (Auto) 0.7 % (0.0-2.0); Eosinophils # (Auto) 0.29 K/mcL (0.00-0.70); Eosinophils % (Auto) 4.3 % (0.0-7.0); Granulocytes % (Auto) 81.8 % (38.0-78.0); Hematocrit 28.8 % (34.1-44.9); Hemoglobin 8.9 g/dL (11.2-15.7); Lymphocytes # (Auto) 0.47 K/mcL (1.50-4.80); Mean Corpuscular HGB Conc 30.9 g/dL (31.0-36.0); Mean Platelet Volume 9.7 fL (7.4-10.4); Monocytes # (Auto) 0.42 K/mcL (0.10-0.90); Monocytes % (Auto) 6.2 % (1.0-12.0); Platelet Count 178 K/mcL (140-440); RBC 2.94 M/mcL (3.59-5.38); Red Cell Distribution Width 16.5 % (11.5-14.5); WBC 6.7 K/mcL (4.50-11.00)
[2020-02-17 06:54] LABS: ALT/SGPT 14 U/l (0-40); AST/SGOT 28 U/l (0-37); Albumin 3.6 gm/dL (3.2-5.2); Albumin/Globulin Ratio 1.4 (1.0-2.3); Alkaline Phosphatase 192 U/L (39-117); Bilirubin,Total 0.6 mg/dL (0.0-1.0); Calcium 8.7 mg/dl (8.6-10.4); Carbon Dioxide 25 mmol/L (22-30); Globulin 2.6 gm/dL (2.2-3.7); Glucose 227 mg/dL (70-105)
[2020-02-17 07:23] LABS: Blood Urea Nitrogen 37 mg/dl (8-23); Chloride 87 mmol/L (96-108); Glomerular Filtration Rate 15
[2020-02-17] MEDS ORDERED: CALCIUM GLUCONATE 4.65 MEQ in DEXTROSE 5% IN WATER 50 ML IV ONE (07:38)
[2020-02-17] MEDS ORDERED: INSULIN LISPRO 1 UNIT/0.01 ML UNIT SQ ONE (07:41)
[2020-02-17] MEDS ORDERED: ALBUTEROL SULFATE 200 PUFF INHALER INH SCH (07:45)
--- NOTE | 2020-02-17 07:49 | Event Note ---
Event Note Event Note: K 6.7 this morning. EKG stat Calcium gluconate 1g iv once stat D50 + insulin once stat albuterol Called nephrology Dr. Farris who will give pt Stat HD. Repeat K in one hour.
[2020-02-17] MEDS: DEXTROSE 50% 50 ML VIAL IV ONE ×2 (07:59→08:30)
[2020-02-17] MEDS: INSULIN LISPRO 1 UNIT/0.01 ML UNIT SQ SCH ×4 (08:05→20:45)
--- NOTE | 2020-02-17 08:18 | Nephrology Progress Note ---
SUBJECTIVE Subjective Patient information: Note initiated : 02/17/20 at 8:14 am Service Date, if different from initiated Date: [] Patient: Shanda Rhodes 74 y/o F admitted on 02/16/20 for blood sugar problem. Chief Complaint: [spell post HD] Echo c/w acute on chronic combined CHF with rLVEF and 3/3 diastolic CHF Chest X ray also supports CHF. Glucose elevated but so is K+ (combined lack of insulin effect and ESRD with increased total body stores of K and only "tip of iceberg" removed with HD. Hypertensive and atrial paced. No A fib. Meds reviewed. Labs reviewed: Laboratory Tests 02/16/20 02/16/20 02/17/20 12:43 12:43 04:42 WBC 6.7 Hgb 8.9 L Hct 28.8 L MCV 98.0 Plt Count 178 Sodium Potassium Chloride Carbon Dioxide Creatinine Glucose Calcium Albumin Procalcitonin 0.15 Random Cortisol 15.6 02/17/20 04:42 WBC Hgb Hct MCV Plt Count Sodium 127 L Potassium 6.7 H* Chloride 87 L Carbon Dioxide 25 Creatinine 2.9 H Glucose 227 H Calcium 8.7 Albumin 3.6 Procalcitonin Random Cortisol Constitutional Vitals: Vital Signs Temp Pulse Resp BP Pulse Ox 36.9 C 67 17 130/101 91 02/17/20 08:01 02/17/20 08:01 02/17/20 08:01 02/17/20 08:01 02/17/20 08:01 Period Temp Pulse Resp BP Sys/Courtney Pulse Ox Last 24 Hr 36.5 C-38.6 C 58-94 10-21 110-172/40-126 88-100 Intake and Output 02/16/20 02/17/20 02/17/20 21:59 05:59 13:59 Intake Total 600 360 Output Total 225 Balance 600 135 Weight 62.171 kg Intake & Output: Intake & Output 02/16/20 02/17/20 02/17/20 21:59 05:59 13:59 Intake Total 600 360 Output Total 225 Balance 600 135 Weight 62.171 kg Intake: IV 400 Zithromax 500 mg In Dextrose 5% 250 in Water 250 ml @ 250 mls/hr IV Q24H [facility] Rx#:[id number] Vibramycin 100 mg In Dextrose 5 100 % in Water 100 ml @ 100 mls/hr IV ONCE ONE Rx#:[id number] Zosyn 2.25 gm In Dextrose 5% in 50 Water 50 ml @ 100 mls/hr IV Q12H [facility] Rx#:[id number] Oral 200 360 Output: Void Amount 225 Other: Meal Dinner Percent of Meal Consumed 75% Feeding Ability Independent Urine Appearance Cloudy Cloudy Urine Color Dark Samanta Dark Samanta Urine Odor Strong Strong Stool Size Large Moderate Stool Color Brown Adolfo Colored Stool Consistency Soft Soft Formed Loose # Voids 1 # Bowel Movements 1 1 # of times incontinent of 1 Bowels General appearance: average body habitus and no acute distress Exam: More pleasant than usual Head Head exam: Present atraumatic and normocephalic Eye Eye exam: Present EOMI, normal appearance and PERRL; Absent scleral icterus Pupils: Present PERRL ENT ENT exam: Present mucous membranes dry Neck Neck exam: Present full ROM; Absent meningismus Respiratory Respiratory exam: Present normal respiratory exam and rhonchi Cardiovascular Cardiovascular exam: Present normal rate and rhythm, JVD, +S1, +S2 and systolic murmur (2/6 HSM); Absent +S3 GI/Abdominal GI/Abdominal exam: Present normal bowel sounds and soft; Absent bruit Extremities Exam Extremities exam: Present full ROM and pedal edema (Trace to 1+); Absent calf tenderness Neurological Exam Neurological exam: Present alert, CN II-XII intact and oriented X3; Absent altered Psychiatric Psychiatric exam: Present normal affect and normal mood Additional comments: More pleasant than yesterday A/P Assessment and plan (1) ESRD (end stage renal disease) on dialysis: Status: Acute (2) Acute on chronic combined systolic (congestive) and diastolic (congestive) heart failure: Status: Acute (3) Hyperkalemia, diminished renal excretion: Status: Acute (4) Loss of hypoglycemic warning symptoms: Status: Acute Narrative A/P Narrative: 1. Hypoglycemia postdialysis Most likely due to the patient saying she takes her long-acting insulin twice a day. When on dialysis she has a constant amount of glucose and a dialysate but upon discontinuation of dialysis she has left to her own gluconeogenesis which may well be inadequate either because of adrenal insufficiency or renal failure as the kidneys are 1 of the major glycogenic organs in the body. Sepsis is a possibility but seems unlikely as she does not appear to be septic Mild hyper kalemia is probably due to low blood sugar and intracellular to extracellular shifting of potassium and should correct with sabianist of normal blood sugar. Will check a cortisol level from blood sent from the ER as well as a procalcitonin level Agree with reduction of long-acting insulin and use of low-dose sliding scale short acting insulin though I doubt she will be compliant with this at home 2. Decompensated congestive heart failure I suspect her chest x-ray shows volume expansion and not an infectious infiltrate. This is supported by elevated BNP levels and prior echocardiography that shows reduced LVEF and grade 3/3 diastolic congestive heart failure. Extra ultrafiltration performed today while treating hyperkalemia 3. Anemia of chronic kidney disease Continue Aranesp while in the hospital 4. Possible pneumonia No fever elevated white count pro calcitonin level pending Await results of blood cultures but suspect they are negative I think she would benefit from extra fluid removal not antibiotics SARS 2 coronavirus testing has been ordered and isolation until results are negative 5. Hyperkalemia Her total body burden of potassium is high and transiently drops after dialysis. Serum levels increase as potassium shifts from intracellular stores to extracellular compartment. In addition, high blood sugars and fear of administering insulin contributes to the hyperkalemia. She is insensitive to the warning signs of hypoglycemia due to her neuropathy and beta-blockade. Plan on her usual dialysis tomorrow to continue to drop her weight, improve her fluid status, would repeat her chest x-ray, set a new dry weight and once we are satisfied that there is no infectious process she can go home. Time Spent With Patient Time: Total time spent is greater than 50% in coordination of care (as documented) at patient's floor/unit and/or counseling patient:
[2020-02-17] MEDS: DOCUSATE SODIUM 100 MG CAPSULE PO SCH ×2 (09:49→20:18)
[2020-02-17] MEDS: ACETAMINOPHEN 325 MG TABLET PO PRN ×2 (10:15→15:36)
[2020-02-17] MEDS: HEPARIN 5,000 UNIT/ML VIAL SQ SCH ×2 (10:15→20:16)
[2020-02-17] MEDS: ASPIRIN 81 MG TAB.CHEW PO SCH (10:15)
--- NOTE | 2020-02-17 10:19 | Internal Med Progress Note ---
SUBJECTIVE Subjective Patient information: Note initiated : 02/17/20 at 10:17 am Service Date, if different from initiated Date: [] Patient: Shanda Rhodes 74 y/o F admitted on 02/16/20 for blood sugar problem. Chief Complaint: [] Interval history: 02/16 Patient feels fine. Denies nausea, vomiting, dizziness, headache, chest pain, or shortness of breath. Vital signs are acceptable. Potassium 6.7 today. urgent treatment below was given: Calcium gluconate 1g iv once stat D50 + insulin once stat albuterol Nephrology Dr. Farris will give pt Stat HD today and possible tomorrow. Review of system: Possible for syncope, all other systems were reviewed and negative. Constitutional Vitals: Vital Signs Temp Pulse Resp BP Pulse Ox 98.4 F 67 17 130/101 91 02/17/20 08:01 02/17/20 08:01 02/17/20 08:01 02/17/20 08:01 02/17/20 08:01 Period Temp Pulse Resp BP Sys/Courtney Pulse Ox Last 24 Hr 97.7 F-101.5 F 58-94 10-21 110-172/40-126 88-100 Intake and Output 02/16/20 02/17/20 02/17/20 21:59 05:59 13:59 Intake Total 600 360 60 Output Total 225 Balance 600 135 60 Weight 62.171 kg Intake & Output: Intake & Output 02/16/20 02/17/20 02/17/20 21:59 05:59 13:59 Intake Total 600 360 60 Output Total 225 Balance 600 135 60 Weight 62.171 kg Intake: IV 400 60 Zithromax 500 mg In Dextrose 5% 250 in Water 250 ml @ 250 mls/hr IV Q24H [facility] Rx#:[id number] Calcium Gluconate 4.65 Meq In 60 Dextrose 5% in Water 50 ml @ 100 mls/hr IV ONCE ONE Rx#: [id number] Vibramycin 100 mg In Dextrose 5 100 % in Water 100 ml @ 100 mls/hr IV ONCE ONE Rx#:[id number] Zosyn 2.25 gm In Dextrose 5% in 50 Water 50 ml @ 100 mls/hr IV Q12H [facility] Rx#:[id number] Oral 200 360 Output: Void Amount 225 Other: Meal Dinner Breakfast Percent of Meal Consumed 75% 100% Feeding Ability Independent Urine Appearance Cloudy Cloudy Urine Color Dark Samanta Dark Samanta Urine Odor Strong Strong Stool Size Large Moderate Copious Stool Color Brown Adolfo Colored Brown Stool Consistency Soft Soft Liquid Formed Loose Loose # Voids 1 # Bowel Movements 1 1 4 # of times incontinent of 1 3 Bowels Additional findings Additional findings: General - No acute distress Eyes - PERRLA, EOM intact ENT no rhinorrhea, no noticeable or palpable swelling, no redness or rash around throat or on face Neck supple, no JVD, no thyromegaly Respiratory: Lungs -clear, no wheezing or crackles. Cardiovascular - RRR no m/r/g, GI - Normal bowel sounds, no distended, soft. Extremeties - No edema, cyanosis or clubbing Hemo/lymphatic/immune no lymphadenopathy Neurological Alert and oriented x 3, no focal neurological deficits. Psychiatry flat affect OBJ DATA Labs CBC & Chem 7: 02/17/20 04:42 02/17/20 04:42 Labs: Abnormal Lab Results 02/17/20 02/17/20 02/17/20 04:48 04:42 04:42 RBC 2.94 L Hgb 8.9 L Hct 28.8 L MCHC 30.9 L RDW 16.5 H Gran % 81.8 H Lymph % (Auto) 7.0 L Lymph # (Auto) 0.47 L PT INR Sodium 127 L Potassium 6.7 H* Chloride 87 L Carbon Dioxide BUN 37 H Creatinine 2.9 H Glucose 227 H Insulin Level 0.9 L Calcium Alkaline Phosphatase 192 H Troponin T NT-Pro-B Natriuret Pep Urine Protein Urine Glucose (UA) Ur Leukocyte Esterase Urine RBC Urine WBC 02/17/20 02/16/20 02/16/20 04:42 23:30 21:39 RBC Hgb Hct MCHC RDW Gran % Lymph % (Auto) Lymph # (Auto) PT INR Sodium Potassium Chloride Carbon Dioxide BUN Creatinine Glucose Insulin Level Calcium Alkaline Phosphatase Troponin T 0.12 H* 0.11 H* NT-Pro-B Natriuret Pep Urine Protein >=500 A Urine Glucose (UA) 50 A Ur Leukocyte Esterase 500 A Urine RBC 11 H Urine WBC > 182 H 02/16/20 02/16/20 02/16/20 17:06 17:06 17:06 RBC Hgb Hct MCHC RDW Gran % Lymph % (Auto) Lymph # (Auto) PT 15.5 H INR 1.2 H Sodium 131 L Potassium 5.9 H* Chloride 89 L Carbon Dioxide 31 H BUN Creatinine 2.2 H Glucose 133 H Insulin Level Calcium 8.4 L Alkaline Phosphatase Troponin T 0.13 H* NT-Pro-B Natriuret Pep Urine Protein Urine Glucose (UA) Ur Leukocyte Esterase Urine RBC Urine WBC 02/16/20 02/16/20 02/16/20 12:43 12:43 12:43 RBC Hgb Hct MCHC RDW Gran % Lymph % (Auto) Lymph # (Auto) PT INR Sodium 132 L Potassium 5.2 H Chloride 90 L Carbon Dioxide BUN Creatinine 1.9 H Glucose 61 L Insulin Level Calcium Alkaline Phosphatase 183 H Troponin T 0.12 H* NT-Pro-B Natriuret Pep 96180.0 H Urine Protein Urine Glucose (UA) Ur Leukocyte Esterase Urine RBC Urine WBC 02/16/20 12:43 RBC 3.10 L Hgb 9.5 L Hct 29.9 L MCHC RDW 16.4 H Gran % 79.3 H Lymph % (Auto) 9.2 L Lymph # (Auto) 0.61 L PT INR Sodium Potassium Chloride Carbon Dioxide BUN Creatinine Glucose Insulin Level Calcium Alkaline Phosphatase Troponin T NT-Pro-B Natriuret Pep Urine Protein Urine Glucose (UA) Ur Leukocyte Esterase Urine RBC Urine WBC Meds: Medications Acetaminophen (Tylenol) 650 mg PO Q6HP PRN; Protocol PRN Reason: Per Pain Protocol/Fever > 101 Last Admin: 02/17/20 10:15 Dose: 650 mg Documented by: Hydrocodone Bitart/Acetaminophen ([place] 5/325mg) 1 tab PO HSP PRN; Protocol PRN Reason: Pain Hydrocodone Bitart/Acetaminophen ([place] 5/325mg) 1 tab PO QHS [facility]; Protocol Aspirin (Aspirin) 81 mg PO DAILY [facility] Last Admin: 02/17/20 10:15 Dose: 81 mg Documented by: Captopril (Capoten) 12.5 mg PO TID [facility] Carvedilol (Coreg) 6.25 mg PO BID [facility] Dextrose (Dextrose 50%) 0 ml IV UD PRN PRN Reason: Hypoglycemia Diagnostic Test (Pha) (Accu-Chek) 1 each FS ACHS [facility] Last Admin: 02/17/20 08:05 Dose: 1 each Documented by: Docusate Sodium (Colace) 100 mg PO BID [facility] Last Admin: 02/17/20 09:49 Dose: Not Given Documented by: Gabapentin (Neurontin) 300 mg PO BID [facility] Glucose (Insta-Glucose) 15 gm PO PRN PRN PRN Reason: Hypoglycemia Heparin Sodium (Porcine) (Heparin) 5,000 unit SQ Q12 [facility] Last Admin: 02/17/20 10:15 Dose: 5,000 unit Documented by: Piperacillin Sod/Tazobactam (Sod 2.25 gm/ Dextrose) 50 mls @ 100 mls/hr IV Q12H [facility]; Protocol Last Infusion: 02/16/20 20:40 Dose: Infused Documented by: Azithromycin 500 mg/ Dextrose 250 mls @ 250 mls/hr IV Q24H [facility]; Protocol Stop: 02/18/20 17:59 Last Infusion: 02/16/20 18:45 Dose: Infused Documented by: Insulin Glargine (Lantus) 10 unit SQ DAILY [facility] Insulin Human Lispro (Humalog) 0 unit SQ ACHS [facility]; Protocol Last Admin: 02/17/20 08:05 Dose: Not Given Documented by: Levetiracetam (Keppra) 500 mg PO BID [facility] Levothyroxine Sodium (Synthroid) 125 mcg PO DAILY [facility] Non-Formulary Medication (Atorvastatin) 80 mg PO QHS [facility] Non-Formulary Medication (B Complex-Vitamin C-Folic Acid) 1 tab PO DAILY [facility] Non-Formulary Medication (Cholecalciferol (Vitamin D3)) 2,000 units PO DAILY [facility] Non-Formulary Medication (Clonidine) 0.2 mg PO BID [facility] Non-Formulary Medication (Lidocaine-Prilocaine) 1 each TP MOWEFR [facility] Ondansetron HCl (Zofran) 4 mg IV Q4HP PRN; Protocol PRN Reason: Nausea And Vomiting Pantoprazole Sodium (Protonix) 40 mg PO DAILY [facility] Sevelamer Carbonate (Renvela) 1,600 mg PO TID [facility] Sodium Chloride (Saline Flush) 10 ml IV Q8 [facility] Last Admin: 02/17/20 05:08 Dose: 10 ml Documented by: A/P Narrative A/P Narrative: 1. Syncope Unknown etiology. It could be due to hypoglycemia or hypotension after dialysis. Pt has hx of seizure disorder on keppra 500mg bid. continue the med EKG prolactin CT of the head - negative Carotid Doppler - pending Echocardiogram - pending monitor car operator 2. Hypoglycemia 1 episode of hypoglycemia Low dose insulin sliding scale. Reduced home insulin Monitor 3. Pneumonia? CXR showed Moderate diffuse interstitial disease most severe in the left midlung and right lower lung. Consider aspiration or infection Denies cough or sob. Procalcitonin neg No leukocytosis But she did have a fever in the ER, > 101. I would like to start her on Zosyn and azithromycin. I would discontinue the abx if her fever resolved today. COVID-19 screening, special isolation Strep screening Blood culture and sputum culture 4. CHF exacerbation BNP 96279 Intake and output Patient received dialysis today and possibly today and possible tomorrow I would not give the patient Lasix 5. 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 I will start her on lantus 10 units daily today. 6. Anemia in ESRD Repeat CBC in morning 7. CAD, s/p stenting Continue home medication aspirin and statin 8. paroxysmal atrial fibrillation Heart rate controlled Continue carvedilol 6.25 mg bid Patient is not on anticoagulation. 9. ESRD on HD ([facility]) Nephrology Dr. Pringle on board 10. Elevation of troponin Patient has a chronic elevation of troponin Denies chest pain Repeated troponin EKG Explained to the patient that there is no dispatch officer or stress test available in this hospital. Patient fully understood and still would like to stay in the hospital. Aspirin and statin 11. HTN Continue home medications 12. Hyperkalemia HD 13. DVT prophylaxis: Heparin 14. CODE STATUS: DNR and DNI. Discussed with the patient with the SEARCHLIGHT OPERATOR. She refused CPR and intubation. Deposition: CM consulted Time Spent With Patient Time: Total time spent is greater than 50% in coordination of care (as d ocumented) at patient's floor/unit and/or counseling patient: QUALITY VTE Deep Vein Thrombosis/Pulmonary Embolism Present on Admission: No
[2020-02-17 11:20] LABS: Blood Urea Nitrogen 44 mg/dl (8-23); Calcium 8.6 mg/dl (8.6-10.4); Carbon Dioxide 24 mmol/L (22-30); Chloride 89 mmol/L (96-108); Glomerular Filtration Rate 15; Glucose 419 mg/dL (70-105)
[2020-02-17] MEDS: CAPTOPRIL 12.5 MG TABLET PO SCH ×2 (13:26→20:18)
[2020-02-17] MEDS ORDERED: cloNIDine HCL 0.1 MG TABLET PO SCH (13:30)
[2020-02-17] MEDS: PIPERACILLIN SODIUM/TAZOBACTAM 2.25 GM in DEXTROSE 5% IN WATER 50 ML IV SCH ×3 (13:36→22:34)
[2020-02-17] MEDS: SEVELAMER 800 MG TABLET PO SCH ×2 (13:47→17:44)
[2020-02-17] MEDS: AZITHROMYCIN 500 MG in DEXTROSE 5% IN WATER 250 ML IV SCH (14:30)
[2020-02-17] MEDS: CARVEDILOL 12.5 MG TABLET PO SCH (16:54)
[2020-02-17] MEDS: INSULIN GLARGINE, HUMAN 1 UNIT/0.01 ML SQ SCH (17:00)
[2020-02-17] MEDS ORDERED: INSULIN GLARGINE, HUMAN 1 UNIT/0.01 ML SQ ONE (17:00)
[2020-02-17] MEDS: ATORVASTATIN 40 MG TABLET PO SCH (20:16)
[2020-02-17] MEDS: levETIRAcetam 500 MG TABLET PO SCH (20:17)
[2020-02-17] MEDS: HYDROcodone/APAP 5/325MG TABLET PO SCH (20:17)
[2020-02-17] MEDS: GABAPENTIN 300 MG CAPSULE PO SCH (20:17)
[2020-02-17] MEDS: cloNIDine HCL 0.1 MG TABLET PO SCH (20:17)
[2020-02-17] MEDS ORDERED: 0.9 % SODIUM CHLORIDE 250 ML IV SCH (22:00)
[2020-02-18] MEDS: 0.9 % SODIUM CHLORIDE 10 ML SYRINGE IV SCH ×3 (05:14→22:02)
[2020-02-18 06:40] LABS: Basophils # (Auto) 0.05 K/mcL (0.00-0.30); Basophils % (Auto) 0.9 % (0.0-2.0); Eosinophils # (Auto) 0.25 K/mcL (0.00-0.70); Eosinophils % (Auto) 4.5 % (0.0-7.0); Granulocytes % (Auto) 73.6 % (38.0-78.0); Hematocrit 28.6 % (34.1-44.9); Hemoglobin 8.9 g/dL (11.2-15.7); Lymphocytes # (Auto) 0.72 K/mcL (1.50-4.80); Mean Cell Volume 96.9 fL (80.0-100.0); Mean Corpuscular HGB Conc 31.1 g/dL (31.0-36.0); Mean Platelet Volume 9.4 fL (7.4-10.4); Monocytes # (Auto) 0.44 K/mcL (0.10-0.90); Platelet Count 205 K/mcL (140-440); RBC 2.95 M/mcL (3.59-5.38); Red Cell Distribution Width 16.1 % (11.5-14.5); WBC 5.5 K/mcL (4.50-11.00)
[2020-02-18 07:20] LABS: ALT/SGPT 10 U/l (0-40); AST/SGOT 18 U/l (0-37); Albumin 3.2 gm/dL (3.2-5.2); Albumin/Globulin Ratio 1.2 (1.0-2.3); Alkaline Phosphatase 162 U/L (39-117); Bilirubin,Total 0.6 mg/dL (0.0-1.0); Calcium 8.6 mg/dl (8.6-10.4); Globulin 2.6 gm/dL (2.2-3.7); Glucose 209 mg/dL (70-105)
[2020-02-18 07:21] LABS: Blood Urea Nitrogen 26 mg/dl (8-23); Carbon Dioxide 32 mmol/L (22-30); Chloride 94 mmol/L (96-108); Glomerular Filtration Rate 20
[2020-02-18] MEDS ORDERED: PANTOPRAZOLE 40 MG TABLET PO SCH (07:30)
[2020-02-18] MEDS: LEVOTHYROXINE 125 MCG TABLET PO SCH (08:13)
[2020-02-18] MEDS: CARVEDILOL 12.5 MG TABLET PO SCH ×2 (08:21→17:11)
[2020-02-18] MEDS: SEVELAMER 800 MG TABLET PO SCH ×3 (08:22→17:12)
[2020-02-18] MEDS: cloNIDine HCL 0.1 MG TABLET PO SCH (08:22)
[2020-02-18] MEDS: GABAPENTIN 300 MG CAPSULE PO SCH ×2 (08:22→20:32)
[2020-02-18] MEDS: HEPARIN 5,000 UNIT/ML VIAL SQ SCH (08:22)
[2020-02-18] MEDS: ASPIRIN 81 MG TAB.CHEW PO SCH (08:22)
[2020-02-18] MEDS: INSULIN GLARGINE, HUMAN 1 UNIT/0.01 ML SQ SCH (08:23)
[2020-02-18] MEDS: INSULIN LISPRO 1 UNIT/0.01 ML UNIT SQ SCH ×4 (08:23→21:04)
[2020-02-18] MEDS: LIDOCAINE/PRILOCAINE 5 GM TUBE TOPICAL SCH (08:24)
[2020-02-18] MEDS: FOLIC ACID/VITAMIN B COMP W-C 1 TAB TABLET PO SCH (09:00)
[2020-02-18] MEDS: VITAMIN D3 1,000 UNIT TABLET PO SCH (09:00)
[2020-02-18] MEDS: levETIRAcetam 500 MG TABLET PO SCH ×2 (09:00→20:31)
[2020-02-18] MEDS: CAPTOPRIL 12.5 MG TABLET PO SCH ×3 (09:00→20:31)
--- NOTE | 2020-02-18 10:55 | Internal Med Progress Note ---
SUBJECTIVE Subjective Patient information: Note initiated : 02/18/20 at 10:51 am Service Date, if different from initiated Date: [] Patient: Shanda Rhodes a 74 y/o F admitted on 02/16/20 for blood sugar problem. Chief Complaint: [] History of present illness: Ms. Rhodes is a 74 year old F with a history of diabetes, end-stage renal disease, congestive heart failure in association with atrial fibrillation status post permanent pacemaker placement who was brought to the ER due to 1 episode of syncope. Patient is a poor historian. Patient underwent dialysis today. After dialysis, she passed out. No witness. She is not sure for how long she lost consciousness. At that time, her blood sugar was 61. 1 amp D50 was given. When I saw this patient in the ER, she denied dizziness, nausea, vomiting or palpitation. She also denies fever, chills, chest pain, shortness of breath, abdominal pain, or diaphoresis. In the ER, chest x-ray showed aspiration or infection. Sugar level was a greater than 100. 02/16 Patient feels fine. Denies nausea, vomiting, dizziness, headache, chest pain, or shortness of breath. Vital signs are acceptable. Potassium 6.7 today. urgent treatment below was given: Calcium gluconate 1g iv once stat D50 + insulin once stat albuterol Nephrology Dr. Farris will give pt Stat HD today and possible tomorrow. 02/17-patient complains of blood smeared stool. Guaiac positive. Hemoglobin 8.9. Heparin and aspirin held. Ongoing hemodialysis. Denies chest pain. No t elemetry events. GI consulted, Constitutional Vitals: Vital Signs Temp Pulse Resp BP Pulse Ox 98.1 F 60 18 141/48 98 02/18/20 09:00 02/18/20 10:45 02/18/20 10:30 02/18/20 10:45 02/18/20 10:30 Period Temp Pulse Resp BP Sys/Courtney Pulse Ox Last 24 Hr 97.9 F-99.1 F 59-66 8-21 112-185/41-117 95-100 Intake and Output 02/17/20 02/18/20 02/18/20 21:59 05:59 13:59 Intake Total 600 290 Output Total 300 100 Balance 300 190 Weight 60.441 kg Intake & Output: Intake & Output 02/17/20 02/18/20 02/18/20 21:59 05:59 13:59 Intake Total 600 290 Output Total 300 100 Balance 300 190 Weight 60.441 kg Intake: IV 300 50 Zithromax 500 mg In Dextrose 5% 250 in Water 250 ml @ 250 mls/hr IV Q24H [facility] Rx#:[id number] Zosyn 2.25 gm In Dextrose 5% in 50 50 Water 50 ml @ 100 mls/hr IV Q12H [facility] Rx#:[id number] Oral 300 240 Output: Urine/Stool Mix 300 100 Other: Meal Dinner Percent of Meal Consumed 75% Feeding Ability Assist with Tray Set Up Nourishment/Supplement name Egg salad sandwich, half with wheat bread Urine Appearance Cloudy Cloudy Urine Color Dark Samanta Dark Samanta Urine Odor Strong Strong Stool Size Moderate Small Moderate Stool Color Dark Red Blood Dark Red Blood Brown Blood Tinged Stool Consistency Soft Soft Loose Loose Loose # Voids 1 # Bowel Movements 1 1 # of times incontinent of 1 Bowels OBJ DATA Labs CBC & Chem 7: 02/18/20 04:46 02/18/20 04:46 Labs: Abnormal Lab Results 02/18/20 02/18/20 02/17/20 04:46 04:46 22:10 RBC 2.95 L Hgb 8.9 L 8.8 L Hct 28.6 L MCHC RDW 16.1 H Gran % Lymph % (Auto) 13.0 L Lymph # (Auto) 0.72 L PT INR Sodium Potassium Chloride 94 L Carbon Dioxide 32 H BUN 26 H Creatinine 2.3 H Glucose 209 H Insulin Level Calcium Alkaline Phosphatase 162 H Troponin T NT-Pro-B Natriuret Pep Total Protein 5.8 L Urine Protein Urine Glucose (UA) Ur Leukocyte Esterase Urine RBC Urine WBC 02/17/20 02/17/20 02/17/20 11:46 09:25 04:48 RBC Hgb Hct MCHC RDW Gran % Lymph % (Auto) Lymph # (Auto) PT INR Sodium 128 L Potassium 5.6 H Chloride 89 L Carbon Dioxide BUN 44 H Creatinine 3.0 H Glucose 419 H Insulin Level 0.9 L Calcium Alkaline Phosphatase Troponin T 0.13 H* NT-Pro-B Natriuret Pep Total Protein Urine Protein Urine Glucose (UA) Ur Leukocyte Esterase Urine RBC Urine WBC 02/17/20 02/17/2002/16/20 04:42 04:42 04:42 RBC 2.94 L Hgb 8.9 L Hct 28.8 L MCHC 30.9 L RDW 16.5 H Gran % 81.8 H Lymph % (Auto) 7.0 L Lymph # (Auto) 0.47 L PT INR Sodium 127 L Potassium 6.7 H* Chloride 87 L Carbon Dioxide BUN 37 H Creatinine 2.9 H Glucose 227 H Insulin Level Calcium Alkaline Phosphatase 192 H Troponin T 0.12 H* NT-Pro-B Natriuret Pep Total Protein Urine Protein Urine Glucose (UA) Ur Leukocyte Esterase Urine RBC Urine WBC 02/16/20 02/16/20 02/16/20 23:30 21:39 17:06 RBC Hgb Hct MCHC RDW Gran % Lymph % (Auto) Lymph # (Auto) PT 15.5 H INR 1.2 H Sodium Potassium Chloride Carbon Dioxide BUN Creatinine Glucose Insulin Level Calcium Alkaline Phosphatase Troponin T 0.11 H* NT-Pro-B Natriuret Pep Total Protein Urine Protein >=500 A Urine Glucose (UA) 50 A Ur Leukocyte Esterase 500 A Urine RBC 11 H Urine WBC > 182 H 02/16/20 02/16/20 02/16/20 17:06 17:06 12:43 RBC Hgb Hct MCHC RDW Gran % Lymph % (Auto) Lymph # (Auto) PT INR Sodium 131 L Potassium 5.9 H* Chloride 89 L Carbon Dioxide 31 H BUN Creatinine 2.2 H Glucose 133 H Insulin Level Calcium 8.4 L Alkaline Phosphatase Troponin T 0.13 H* NT-Pro-B Natriuret Pep 95625.0 H Total Protein Urine Protein Urine Glucose (UA) Ur Leukocyte Esterase Urine RBC Urine WBC 02/16/20 02/16/20 02/16/20 12:43 12:43 12:43 RBC 3.10 L Hgb 9.5 L Hct 29.9 L MCHC RDW 16.4 H Gran % 79.3 H Lymph % (Auto) 9.2 L Lymph # (Auto) 0.61 L PT INR Sodium 132 L Potassium 5.2 H Chloride 90 L Carbon Dioxide BUN Creatinine 1.9 H Glucose 61 L Insulin Level Calcium Alkaline Phosphatase 183 H Troponin T 0.12 H* NT-Pro-B Natriuret Pep Total Protein Urine Protein Urine Glucose (UA) Ur Leukocyte Esterase Urine RBC Urine WBC Meds: Medications Acetaminophen (Tylenol) 650 mg PO Q6HP PRN; Protocol PRN Reason: Per Pain Protocol/Fever > 101 Last Admin: 02/17/20 15:36 Dose: 650 mg Documented by: Hydrocodone Bitart/Acetaminophen ([place] 5/325mg) 1 tab PO HSP PRN; Protocol PRN Reason: Pain Hydrocodone Bitart/Acetaminophen ([place] 5/325mg) 1 tab PO QHS [facility]; Protocol Last Admin: 02/17/20 20:17 Dose: 1 tab Documented by: Atorvastatin Calcium (Lipitor) 80 mg PO QHS [facility] Last Admin: 02/17/20 20:16 Dose: 80 mg Documented by: Captopril (Capoten) 12.5 mg PO TID [facility] Last Admin: 02/18/20 09:00 Dose: 12.5 mg Documented by: [facility] Last Admin: 02/18/20 08:21 Dose: 6.25 mg Documented by: Clonidine HCl (Catapres) 0.2 mg PO BID [facility] Last Admin: 02/18/20 08:22 Dose: 0.2 mg Documented by: Dextrose (Dextrose 50%) 0 ml IV UD PRN PRN Reason: Hypoglycemia Diagnostic Test (Pha) (Accu-Chek) 1 each FS [facility] Last Admin: 02/18/20 08:11 Dose: 1 each Documented by: Gabapentin (Neurontin) 300 mg PO BID [facility] Last Admin: 02/18/20 08:22 Dose: 300 mg Documented by: Glucose (Insta-Glucose) 15 gm PO PRN PRN PRN Reason: Hypoglycemia Piperacillin Sod/Tazobactam (Sod 2.25 gm/ Dextrose) 50 mls @ 100 mls/hr IV Q12H [facility]; Protocol Last Infusion: 02/17/20 23:05 Dose: Infused Documented by: Azithromycin 500 mg/ Dextrose 250 mls @ 250 mls/hr IV Q24H [facility]; Protocol Stop: 02/18/20 17:59 Last Infusion: 02/17/20 15:45 Dose: Infused Documented by: Insulin Glargine (Lantus) 10 unit SQ DAILY [facility] Last Admin: 02/18/20 08:23 Dose: 10 unit Documented by: Insulin Human Lispro (Humalog) 0 unit SQ [facility]; Protocol Last Admin: 02/18/20 08:23 Dose: 3 unit Documented by: Levetiracetam (Keppra) 500 mg PO BID [facility] Last Admin: 02/18/20 09:00 Dose: 500 mg Documented by: Levothyroxine Sodium (Synthroid) 125 mcg PO QAMAC [facility] Last Admin: 02/18/20 08:13 Dose: 125 mcg Documented by: Lidocaine/Prilocaine (Emla) 5 gm TOPICAL MoWeFr@0900 [facility] Last Admin: 02/18/20 08:24 Dose: Not Given Documented by: Multivit/Ca Carb/B Cmplx/FA/Prenat (Diatx) 1 tab PO DAILY [facility] Last Admin: 02/18/20 09:00 Dose: 1 tab Documented by: Ondansetron HCl (Zofran) 4 mg IV Q4HP PRN; Protocol PRN Reason: Nausea And Vomiting Pantoprazole Sodium (Protonix) 40 mg PO QAMAC [facility] Last Admin: 02/18/20 08:13 Dose: 40 mg Documented by: Sevelamer Carbonate (Renvela) 1,600 mg PO TIDCC [facility] Last Admin: 02/18/20 08:22 Dose: 1,600 mg Documented by: Sodium Chloride (Saline Flush) 10 ml IV Q8 [facility] Last Admin: 02/18/20 05:14 Dose: 10 ml Documented by: Vitamin D (Vitamin D3) 2,000 unit PO DAILY [facility] Last Admin: 02/18/20 09:00 Dose: 2,000 unit Documented by: A/P Narrative A/P Narrative: * Syncope-Unknown etiology. Possibly hypotension following dialysis. hx of seizure disorder on keppra 500mg bid, no neurological changes or seizure episode noted during last [address] head negative. Echocardiogram -unremarkable except for grade 3 diastolic dysfunction, no telemetry events. * Multifocal pneumonia on imaging. 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 GI consult. Hemoglobin 8.9 * CAD, s/p stenting, on statin , ASA held * paroxysmal atrial fibrillation, rate controlled. Continue Coreg. Not on anticoagulation. * ESRD on HD ([facility])Nephrology Dr. Pringle on board * Chronic elevation of troponin. Previous hospitalist explained to the patient that there is no hitcher or stress test available in this hospital. Patient fully understood and still would like to stay in the hospital. On aspirin and statin at home * History of hypertension on home medications * DVT prophylaxis: SCDs * CODE STATUS: DNR and DNI. Plan * GI consult * Antibiotic coverage * Pre-existing medical condition management as above * Discharge planning per case management * Hold aspirin/heparin start SCDs Time Spent With Patient Time: Total time spent is greater than 50% in coordination of care (as documented) at patient's floor/unit and/or counseling patient: Total time spent with greater than 50% in coordination of care (as documented) at patient's floor/unit and/or counseling patient:: Greater than 35 minutes QUALITY VTE Deep Vein Thrombosis/Pulmonary Embolism Present on Admission: No
[2020-02-18] MEDS ORDERED: DARBEPOETIN ALFA 100 MCG/ML VIAL IV ONE (11:10)
--- NOTE | 2020-02-18 13:20 | Nephrology Progress Note ---
SUBJECTIVE Subjective Patient information: Note initiated : 02/18/20 at 1:05 pm Service Date, if different from initiated Date: [] Patient: Shanda Rhodes 74 y/o F admitted on 02/16/20 for blood sugar problem. Chief Complaint: [fell out [place] bus stop post HD with BS 60 and fever from environmental exposure] This patient has recurrent hypoglycemic episodes with the following issues: 1. Hypoglycemic insensitivity due to beta-jason therapy 2. Adrenal insufficiency was ruled out by appropriately elevated cortisol level 3. Effecting gluconeogenesis is present as the kidneys are 1 of the 2 gluconeogenesis organs in the body and cannot produce cannot produce glucose when the need arises during a hypoglycemic episode. 4. There attempts to manage her blood sugars with twice a day dosing of long-acting insulin which is fine until she comes off dialysis and no longer has a constant source of glucose leading to a drop in her blood sugar postdialysis. She also has combined systolic and diastolic congestive heart failure and is in a chronic state of volume overload evidenced by a chronically elevated proBNP level and a chest x-ray that consistent with volume expansion. She is reticent to allow dialysis to challenge her dry weight and hence has no effective therapy for her congestive heart failure except for the beta-jason which are a problem in terms of her blood sugar management and short acting SERENA inhibitors as her blood pressure is somewhat volume dependent on dialysis. Today she underwent dialysis with an additional 3.4 kg fluid removal had one decline in her blood pressure that responded to saline bolus and her ending blood pressure is 150/49. She also received 100 mcg of IV Aranesp. Finally she has been experiencing some loose BMs with blood in them so she will undergo colonoscopy before discharge. The dialysis patient the most likely etiology is AVMs, although in this patient surely ischemic colitis is a possibility and she does not appear to have an active case of C. difficile colitis. I would make every attempt to stop her antibiotics as soon as you are competent that she does not have an infection. Laboratory Tests 02/16/20 02/16/20 02/16/20 12:43 12:43 12:48 WBC Hgb Hct Plt Count VBG Lactic Acid 0.9 Sodium Potassium Chloride Carbon Dioxide Anion Gap BUN Creatinine Glucose Insulin Level Calcium NT-Pro-B Natriuret Pep 99211.0 H Albumin Procalcitonin 0.15 02/17/20 02/18/20 02/18/20 04:48 04:46 04:46 WBC 5.5 Hgb 8.9 L Hct 28.6 L Plt Count 205 VBG Lactic Acid Sodium 137 Potassium 4.2 Chloride 94 L Carbon Dioxide 32 H Anion Gap 11.0 BUN 26 H Creatinine 2.3 H Glucose 209 H Insulin Level 0.9 L Calcium 8.6 NT-Pro-B Natriuret Pep Albumin 3.2 Procalcitonin Blood cultures are negative at 48 hours. Urine culture grew Zoë albicans SARS COVID-19 pending C. difficile toxin negative stool Constitutional Vitals: Vital Signs Temp Pulse Resp BP Pulse Ox 36.6 C 61 18 132/85 98 02/18/20 12:47 02/18/20 12:47 02/18/20 10:30 02/18/20 12:47 02/18/20 10:30 Period Temp Pulse Resp BP Sys/Courtney Pulse Ox Last 24 Hr 36.5 C-37.3 C 59-67 8-21 97-185/41-117 95-100 Intake and Output 02/17/20 02/18/20 02/18/20 21:59 05:59 13:59 Intake Total 600 290 Output Total 300 100 Balance 300 190 Weight 60.441 kg Intake & Output: Intake & Output 02/17/20 02/18/20 02/18/20 21:59 05:59 13:59 Intake Total 600 290 Output Total 300 100 Balance 300 190 Weight 60.441 kg Intake: IV 300 50 Zithromax 500 mg In Dextrose 5% 250 in Water 250 ml @ 250 mls/hr IV Q24H [facility] Rx#:[id number] Zosyn 2.25 gm In Dextrose 5% in 50 50 Water 50 ml @ 100 mls/hr IV Q12H [facility] Rx#:[id number] Oral 300 240 Output: Urine/Stool Mix 300 100 Other: Meal Dinner Percent of Meal Consumed 75% Feeding Ability Assist with Tray Set Up Nourishment/Supplement name Egg salad sandwich, half with wheat bread Urine Appearance Cloudy Cloudy Urine Color Dark Samanta Dark Samanta Urine Odor Strong Strong Stool Size Moderate Small Moderate Stool Color Dark Red Blood Dark Red Blood Brown Blood Tinged Stool Consistency Soft Soft Loose Loose Loose # Voids 1 # Bowel Movements 1 1 # of times incontinent of 1 Bowels General appearance: average body habitus and mild distress Exam: More pleasant than usual Head Head exam: Present atraumatic and normocephalic Eye Eye exam: Present EOMI and PERRL; Absent nystagmus Pupils: Present PERRL ENT ENT exam: Present mucous membranes moist Neck Neck exam: Present full ROM; Absent meningismus Respiratory Respiratory exam: Present normal respiratory exam Cardiovascular Cardiovascular exam: Present normal rate and rhythm, JVD, RRR, +S1 and +S2 GI/Abdominal GI/Abdominal exam: Present normal bowel sounds and distended Extremities Exam Extremities exam: Present pedal edema; Absent calf tenderness Neurological Exam Neurological exam: Present alert, CN II-XII intact and oriented X3 Psychiatric Psychiatric exam: Present anxious Skin Skin exam: Present dry Additional comments: Ecchymosis A/P Assessment and plan (1) Acute on chronic combined systolic (congestive) and diastolic (congestive) heart failure: Status: Acute (2) Loss of hypoglycemic warning symptoms: Status: Acute (3) Hyperkalemia, diminished renal excretion: Status: Acute (4) ESRD (end stage renal disease) on dialysis: Status: Acute (5) Anemia: Status: Acute Qualifiers: Anemia type: other cause Other causes of anemia: other cause, not classified Qualified Code(s): D64.89 - Other specified anemias (6) Hyperglycemia due to type 2 diabetes mellitus: Status: Chronic Qualifiers: Diabetes mellitus provider service representative insulin use: with care home use Qualified Code(s): E11.65 - Type 2 diabetes mellitus with hyperglycemia; Z79.4 - residential (current) use of insulin Narrative A/P Narrative: 1. Hypoglycemia postdialysis Most likely due to the patient saying she takes her long-acting insulin twice a day. When on dialysis she has a constant amount of glucose and a dialysate but upon discontinuation of dialysis she has left to her own gluconeogenesis which may well be inadequate either because of adrenal insufficiency or renal failure as the kidneys are 1 of the major glycogenic organs in the body. Sepsis is a possibility but seems unlikely as she does not appear to be septic Mild hyper kalemia is probably due to low blood sugar and intracellular to extracellular shifting of potassium and should correct with druze of normal blood sugar. Will check a cortisol level from blood sent from the ER as well as a procalcitonin level Agree with reduction of long-acting insulin and use of low-dose sliding scale short acting insulin though I doubt she will be compliant with this at home 2. Decompensated congestive heart failure I suspect her chest x-ray shows volume expansion and not an infectious infiltrate. This is supported by elevated BNP levels and prior echocardiography that shows reduced LVEF and grade 3/3 diastolic congestive heart failure. Extra ultrafiltration performed today while treating hyperkalemia 3. Anemia of chronic kidney disease Continue Aranesp while in the hospital 4. Possible pneumonia No fever elevated white count pro calcitonin level pending Await results of blood cultures but suspect they are negative I think she would benefit from extra fluid removal not antibiotics SARS 2 coronavirus testing has been ordered and isolation until results are negative 5. Hyperkalemia Her total body burden of potassium is high and transiently drops after dialysis. Serum levels increase as potassium shifts from intracellular stores to extracellular compartment. In addition, high blood sugars and fear of administering insulin contributes to the hyperkalemia. She is insensitive to the warning signs of hypoglycemia due to her neuropathy and beta-blockade. Plan on her usual dialysis tomorrow to continue to drop her weight, improve her fluid status, would repeat her chest x-ray, set a new dry weight and once we are satisfied that there is no infectious process she can go home. Time Spent With Patient Time: Total time spent is greater than 50% in coordination of care (as documented) at patient's floor/unit and/or counseling patient:
[2020-02-18] MEDS ORDERED: cloNIDine HCL 0.1 MG TABLET PO PRN (13:28)
[2020-02-18] MEDS: PIPERACILLIN SODIUM/TAZOBACTAM 2.25 GM in DEXTROSE 5% IN WATER 50 ML IV SCH ×2 (13:53→22:01)
[2020-02-18] MEDS: AZITHROMYCIN 500 MG in DEXTROSE 5% IN WATER 250 ML IV SCH (13:53)
[2020-02-18] MEDS: ACETAMINOPHEN 325 MG TABLET PO PRN (14:47)
[2020-02-18] MEDS: PANTOPRAZOLE 40 MG TABLET PO SCH (17:11)
[2020-02-18] MEDS: HYDROcodone/APAP 5/325MG TABLET PO SCH (20:32)
[2020-02-18] MEDS: ATORVASTATIN 40 MG TABLET PO SCH (20:32)
[2020-02-19] MEDS: ACETAMINOPHEN 325 MG TABLET PO PRN (04:34)
[2020-02-19] MEDS: 0.9 % SODIUM CHLORIDE 10 ML SYRINGE IV SCH ×3 (06:00→21:48)
[2020-02-19 06:35] LABS: Basophils # (Auto) 0.05 K/mcL (0.00-0.30); Eosinophils # (Auto) 0.22 K/mcL (0.00-0.70); Eosinophils % (Auto) 4.3 % (0.0-7.0); Granulocytes % (Auto) 72.2 % (38.0-78.0); Hematocrit 29.9 % (34.1-44.9); Hemoglobin 9.3 g/dL (11.2-15.7); Lymphocytes # (Auto) 0.74 K/mcL (1.50-4.80); Lymphocytes % (Auto) 14.5 % (15.5-49.0); Mean Cell Volume 97.1 fL (80.0-100.0); Mean Corpuscular HGB Conc 31.1 g/dL (31.0-36.0); Mean Platelet Volume 9.6 fL (7.4-10.4); Monocytes # (Auto) 0.41 K/mcL (0.10-0.90); Platelet Count 230 K/mcL (140-440); RBC 3.08 M/mcL (3.59-5.38); WBC 5.1 K/mcL (4.50-11.00)
[2020-02-19] MEDS: LEVOTHYROXINE 125 MCG TABLET PO SCH (06:57)
[2020-02-19] MEDS: PANTOPRAZOLE 40 MG TABLET PO SCH ×2 (06:58→17:50)
[2020-02-19 07:06] LABS: ALT/SGPT 10 U/l (0-40); AST/SGOT 16 U/l (0-37); Albumin 3.4 gm/dL (3.2-5.2); Albumin/Globulin Ratio 1.3 (1.0-2.3); Alkaline Phosphatase 158 U/L (39-117); Bilirubin,Direct 0.3 mg/dL (0.0-0.3); Bilirubin,Total 0.6 mg/dL (0.0-1.0); Blood Urea Nitrogen 21 mg/dl (8-23); Calcium 8.5 mg/dl (8.6-10.4); Carbon Dioxide 31 mmol/L (22-30); Globulin 2.6 gm/dL (2.2-3.7); Glomerular Filtration Rate 20; Glucose 225 mg/dL (70-105); Lactate Dehydrogenase 185 U/L (94-250); Phosphorous 3.8 mg/dL (2.7-4.5); Triglycerides 32 mg/dl (<150); Uric Acid 2.8 mg/dL (2.5-8.0)
[2020-02-19 07:14] LABS: Chloride 91 mmol/L (96-108)
--- NOTE | 2020-02-19 07:31 | Nephrology Progress Note ---
SUBJECTIVE Subjective Patient information: Note initiated : 02/19/20 at 7:26 am Service Date, if different from initiated Date: [] Patient: Shanda Rhodes 74 y/o F admitted on 02/16/20 for blood sugar problem. Chief Complaint: [low blod sugal and spell post HD] Uneventful HD yesterday. GI w/u for diarrhea with heme C diff neg On ABx [employer] and since admission but no evidence of Infection (fever from sitting [place] bus [place] 100 degree heat and CXR changes c/w chronic volume overload / combined systolic/diastolic CHF and her steadfast refusal to allow adequate volume to be removed with OP dialysis). I recommend D/C ABx Combined systolic and diastolic CHF F/U CXR post HD tomorrow Record post HD weight Captopril and low dose carvedilol Hypoglycemia Once a day lantus at bedtime Premeal humal 5 units for CHO coverage (skip if not eating) PLUS SS correction factor based of premeal BG She qualifies for CGM based on hypoglycemic unawareness and 4 injections per day of insulin (continous insulin pump as well) ESRD Next HD 02/20/2020 Continue to challenge weight Constitutional Vitals: Vital Signs Temp Pulse Resp BP Pulse Ox 36.6 C 60 16 144/50 99 02/19/20 04:00 02/18/20 14:00 02/19/20 06:01 02/19/20 06:01 02/19/20 06:01 Period Temp Pulse Resp BP Sys/Courtney Pulse Ox Last 24 Hr 36.3 C-36.9 C 60-67 10-27 80-168/38-128 94-100 Intake and Output 02/18/20 02/19/20 02/19/20 21:59 05:59 13:59 Intake Total 900 530 Output Total 650 Balance 900 -120 Weight 58.196 kg Intake & Output: Intake & Output 02/18/20 02/19/20 02/19/20 21:59 05:59 13:59 Intake Total 900 530 Output Total 650 Balance 900 -120 Weight 58.196 kg Intake: IV 300 50 Zithromax 500 mg In Dextrose 5% 250 in Water 250 ml @ 250 mls/hr IV Q24H [facility] Rx#:[id number] Zosyn 2.25 gm In Dextrose 5% in 50 50 Water 50 ml @ 100 mls/hr IV Q12H [facility] Rx#:[id number] Oral 600 480 Output: Urine/Stool Mix 300 Stool 350 Other: Meal Dinner snack Percent of Meal Consumed 100% 100% Feeding Ability Assist with Tray Set Up Assist with Tray Set Up Urine Appearance Cloudy Urine Color Dark Samanta Urine Odor Strong Stool Size Large Moderate Stool Color Dark Red Blood Brown Blood Tinged Blood Tinged Stool Consistency Liquid Liquid # Bowel Movements 1 # of times incontinent of 1 1 Bowels General appearance: average body habitus and cooperative Head Head exam: Present atraumatic and normocephalic Eye Eye exam: Present EOMI and normal appearance Pupils: Present PERRL ENT ENT exam: Present mucous membranes moist Neck Neck exam: Present full ROM, meningismus and normal inspection Respiratory Respiratory exam: Present normal respiratory exam Cardiovascular Cardiovascular exam: Present normal rate and rhythm and RRR; Absent rubs GI/Abdominal GI/Abdominal exam: Present normal bowel sounds, soft and distended Extremities Exam Extremities exam: Present pedal edema (trace); Absent calf tenderness and normal inspection Neurological Exam Neurological exam: Present alert, CN II-XII intact and oriented X3 Psychiatric Psychiatric exam: Present normal affect Skin Skin exam: Present dry A/P Assessment and plan (1) Acute on chronic combined systolic (congestive) and diastolic (congestive) heart failure: Status: Acute Comment: Challenging weight on HD Carvedilol and captopril (2) Hyperkalemia, diminished renal excretion: Status: Acute Comment: Improved (3) ESRD (end stage renal disease) on dialysis: Status: Acute Comment: Stable Time Spent With Patient Time: Total time spent is greater than 50% in coordination of care (as documented) at patient's floor/unit and/or counseling patient:
[2020-02-19] MEDS ORDERED: PEG 3350/NA SULF,BICARB,CL/KCL 4,000 ML ORAL.SOL PO ONE (08:30)
[2020-02-19] MEDS: PIPERACILLIN SODIUM/TAZOBACTAM 2.25 GM in DEXTROSE 5% IN WATER 50 ML IV SCH ×2 (09:00→21:46)
[2020-02-19] MEDS: INSULIN GLARGINE, HUMAN 1 UNIT/0.01 ML SQ SCH (09:44)
[2020-02-19] MEDS: INSULIN LISPRO 1 UNIT/0.01 ML UNIT SQ SCH ×4 (09:44→21:44)
[2020-02-19] MEDS: FOLIC ACID/VITAMIN B COMP W-C 1 TAB TABLET PO SCH (09:51)
[2020-02-19] MEDS: CARVEDILOL 12.5 MG TABLET PO SCH ×2 (09:51→17:50)
[2020-02-19] MEDS: CAPTOPRIL 12.5 MG TABLET PO SCH ×3 (09:51→21:44)
[2020-02-19] MEDS: levETIRAcetam 500 MG TABLET PO SCH ×2 (09:51→21:44)
[2020-02-19] MEDS: SEVELAMER 800 MG TABLET PO SCH ×3 (09:51→17:50)
[2020-02-19] MEDS: GABAPENTIN 300 MG CAPSULE PO SCH ×2 (09:51→21:45)
[2020-02-19] MEDS: VITAMIN D3 1,000 UNIT TABLET PO SCH (09:51)
--- NOTE | 2020-02-19 09:58 | Internal Med Progress Note ---
SUBJECTIVE Subjective Patient information: Note initiated : 02/19/20 at 9:54 am Service Date, if different from initiated Date: [] Patient: Shanda Rhodes a 74 y/o F admitted on 02/16/20 for blood sugar problem. History of present illness: Ms. Rhodes is a 74 year old F with a history of diabetes, end-stage renal disease, congestive heart failure in association with atrial fibrillation status post permanent pacemaker placement who was brought to the ER due to 1 episode of syncope. Patient is a poor historian. Patient underwent dialysis today. After dialysis, she passed out. No witness. She is not sure for how long she lost consciousness. At that time, her blood sugar was 61. 1 amp D50 was given. When I saw this patient in the ER, she denied dizziness, nausea, vomiting or palpitation. She also denies fever, chills, chest pain, shortness of breath, abdominal pain, or diaphoresis. In the ER, chest x-ray showed aspiration or infection. Sugar level was a greater than 100. 02/16 Patient feels fine. Denies nausea, vomiting, dizziness, headache, chest pain, or shortness of breath. Vital signs are acceptable. Potassium 6.7 today. urgent treatment below was given: Calcium gluconate 1g iv once stat D50 + insulin once stat albuterol Nephrology Dr. Farris will give pt Stat HD today and possible tomorrow. 02/17-patient complains of blood smeared stool. Guaiac positive. Hemoglobin 8. 9. Heparin and aspirin held. Ongoing hemodialysis. Denies chest pain. No telemetry events. GI consulted 02/18 -COVID-19 negative. Multiple bloody bowels overnight. Started on GoLYTELY. Case discussed with GI. Will undergo colonoscopy today. On PPI. Hemoglobin stable at 9.3. Continue every 6 hemoglobin checks. Off aspirin/heparin. Denies chest pain, lightheadedness, dizziness. Antibiotic coverage, continue aspiration precautions. Ongoing hemodialysis per nephrology. Constitutional Vitals: Vital Signs Temp Pulse Resp BP Pulse Ox 98.6 F 60 18 131/116 97 02/19/20 07:01 02/18/20 14:00 02/19/20 08:08 02/19/20 08:01 02/19/20 08:08 Period Temp Pulse Resp BP Sys/Courtney Pulse Ox Last 24 Hr 97.4 F-98.6 F 60-67 10-27 80-168/38-128 94-100 Intake and Output 02/18/20 02/19/20 02/19/20 21:59 05:59 13:59 Intake Total 900 530 Output Total 650 Balance 900 -120 Weight 58.196 kg Intake & Output: Intake & Output 02/18/20 02/19/20 02/19/20 21:59 05:59 13:59 Intake Total 900 530 Output Total 650 Balance 900 -120 Weight 58.196 kg Intake: IV 300 50 Zithromax 500 mg In Dextrose 5% 250 in Water 250 ml @ 250 mls/hr IV Q24H [facility] Rx#:[id number] Zosyn 2.25 gm In Dextrose 5% in 50 50 Water 50 ml @ 100 mls/hr IV Q12H [facility] Rx#:[id number] Oral 600 480 Output: Urine/Stool Mix 300 Stool 350 Other: Meal Dinner snack Percent of Meal Consumed 100% 100% Feeding Ability Assist with Tray Set Up Assist with Tray Set Up Urine Appearance Cloudy Urine Color Dark [place] Urine Odor Strong Stool Size Large Moderate Stool Color Dark Red Blood Brown Blood Tinged Blood Tinged Stool Consistency Liquid Liquid # Bowel Movements 1 # of times incontinent of 1 1 Bowels Exam: No anxiety Nonlabored breathing alert oriented Nondistended abdomen OBJ DATA Labs CBC & Chem 7: 02/19/20 04:47 02/19/20 04:47 Labs: Abnormal Lab Results 02/19/20 02/19/20 02/18/20 04:47 04:47 04:46 RBC 3.08 L Hgb 9.3 L Hct 29.9 L MCHC RDW 16.0 H Gran % Lymph % (Auto) 14.5 L Lymph # (Auto) 0.74 L PT INR Sodium Potassium Chloride 91 L 94 L Carbon Dioxide 31 H 32 H BUN 26 H Creatinine 2.3 H 2.3 H Glucose 225 H 209 H Insulin Level Calcium 8.5 L GGT 76 H Alkaline Phosphatase 158 H 162 H Troponin T NT-Pro-B Natriuret Pep Total Protein 5.8 L Urine Protein Urine Glucose (UA) Ur Leukocyte Esterase Urine RBC Urine WBC 02/18/20 02/17/20 02/17/20 04:46 22:10 11:46 RBC 2.95 L Hgb 8.9 L 8.8 L Hct 28.6 L MCHC RDW 16.1 H Gran % Lymph % (Auto) 13.0 L Lymph # (Auto) 0.72 L PT INR Sodium Potassium Chloride Carbon Dioxide BUN Creatinine Glucose Insulin Level Calcium GGT Alkaline Phosphatase Troponin T 0.13 H* NT-Pro-B Natriuret Pep Total Protein Urine Protein Urine Glucose (UA) Ur Leukocyte Esterase Urine RBC Urine WBC 02/17/20 02/17/20 02/17/20 09:25 04:48 04:42 RBC Hgb Hct MCHC RDW Gran % Lymph % (Auto) Lymph # (Auto) PT INR Sodium 128 L 127 L Potassium 5.6 H 6.7 H* Chloride 89 L 87 L Carbon Dioxide BUN 44 H 37 H Creatinine 3.0 H 2.9 H Glucose 419 H 227 H Insulin Level 0.9 L Calcium GGT Alkaline Phosphatase 192 H Troponin T NT-Pro-B Natriuret Pep Total Protein Urine Protein Urine Glucose (UA) Ur Leukocyte Esterase Urine RBC Urine WBC 02/17/20 02/17/20 02/16/20 04:42 04:42 23:30 RBC 2.94 L Hgb 8.9 L Hct 28.8 L MCHC 30.9 L RDW 16.5 H Gran % 81.8 H Lymph % (Auto) 7.0 L Lymph # (Auto) 0.47 L PT INR Sodium Potassium Chloride Carbon Dioxide BUN Creatinine Glucose Insulin Level Calcium GGT Alkaline Phosphatase Troponin T 0.12 H* 0.11 H* NT-Pro-B Natriuret Pep Total Protein Urine Protein Urine Glucose (UA) Ur Leukocyte Esterase Urine RBC Urine WBC 02/16/20 02/16/20 02/16/20 21:39 17:06 17:06 RBC Hgb Hct MCHC RDW Gran % Lymph % (Auto) Lymph # (Auto) PT 15.5 H INR 1.2 H Sodium Potassium Chloride Carbon Dioxide BUN Creatinine Glucose Insulin Level Calcium GGT Alkaline Phosphatase Troponin T 0.13 H* NT-Pro-B Natriuret Pep Total Protein Urine Protein >=500 A Urine Glucose (UA) 50 A Ur Leukocyte Esterase 500 A Urine RBC 11 H Urine WBC > 182 H 02/16/20 02/16/20 02/16/20 17:06 12:43 12:43 RBC Hgb Hct MCHC RDW Gran % Lymph % (Auto) Lymph # (Auto) PT INR Sodium 131 L Potassium 5.9 H* Chloride 89 L Carbon Dioxide 31 H BUN Creatinine 2.2 H Glucose 133 H Insulin Level Calcium 8.4 L GGT Alkaline Phosphatase Troponin T 0.12 H* NT-Pro-B Natriuret Pep 88960.0 H Total Protein Urine Protein Urine Glucose (UA) Ur Leukocyte Esterase Urine RBC Urine WBC 02/16/20 02/16/20 12:43 12:43 RBC 3.10 L Hgb 9.5 L Hct 29.9 L MCHC RDW 16.4 H Gran % 79.3 H Lymph % (Auto) 9.2 L Lymph # (Auto) 0.61 L PT INR Sodium 132 L Potassium 5.2 H Chloride 90 L Carbon Dioxide BUN Creatinine 1.9 H Glucose 61 L Insulin Level Calcium GGT Alkaline Phosphatase 183 H Troponin T NT-Pro-B Natriuret Pep Total Protein Urine Protein Urine Glucose (UA) Ur Leukocyte Esterase Urine RBC Urine WBC Meds: Medications Acetaminophen (Tylenol) 650 mg PO Q6HP PRN; Protocol PRN Reason: Per Pain Protocol/Fever > 101 Last Admin: 02/19/20 04:34 Dose: 650 mg Documented by: Hydrocodone Bitart/Acetaminophen ([place] 5/325mg) 1 tab PO [facility] PRN; Protocol PRN Reason: Pain Hydrocodone Bitart/Acetaminophen ([place] 5/325mg) 1 tab PO QHS [facility]; Protocol Last Admin: 02/18/20 20:32 Dose: 1 tab Documented by: Atorvastatin Calcium (Lipitor) 80 mg PO QHS [facility] Last Admin: 02/18/20 20:32 Dose: 80 mg Documented by: Captopril (Capoten) 12.5 mg PO TID [facility] Last Admin: 02/19/20 09:51 Dose: 12.5 mg Documented by: Carvedilol (Coreg) 6.25 mg PO BIDCC [facility] Last Admin: 02/19/20 09:51 Dose: 6.25 mg Documented by: Clonidine HCl (Catapres) 0.2 mg PO Q8HP PRN PRN Reason: Hypertensive Emergency Dextrose (Dextrose 50%) 0 ml IV UD PRN PRN Reason: Hypoglycemia Diagnostic Test (Pha) (Accu-Chek) 1 each FS ACHS [facility] Last Admin: 02/19/20 07:20 Dose: 1 each Documented by: Gabapentin (Neurontin) 300 mg PO BID [facility] Last Admin: 02/19/20 09:51 Dose: 300 mg Documented by: Glucose (Insta-Glucose) 15 gm PO PRN PRN PRN Reason: Hypoglycemia Piperacillin Sod/Tazobactam (Sod 2.25 gm/ Dextrose) 50 mls @ 100 mls/hr IV Q12H [facility]; Protocol Last Infusion: 02/18/20 22:40 Dose: Infused Documented by: Insulin Glargine (Lantus) 10 unit SQ DAILY [facility] Last Admin: 02/19/20 09:44 Dose: 10 unit Documented by: Insulin Human Lispro (Humalog) 0 unit SQ ACHS [facility]; Protocol Last Admin: 02/19/20 09:44 Dose: 6 unit Documented by: Levetiracetam (Keppra) 500 mg PO BID [facility] Last Admin: 02/19/20 09:51 Dose: 500 mg Documented by: Levothyroxine Sodium (Synthroid) 125 mcg PO QAMAC [facility] Last Admin: 02/19/20 06:57 Dose: 125 mcg Documented by: Lidocaine/Prilocaine (Emla) 5 gm TOPICAL MoWeFr@0900 [facility] Last Admin: 02/18/20 08:24 Dose: Not Given Documented by: Multivit/Ca Carb/B Cmplx/FA/Prenat (Diatx) 1 tab PO DAILY [facility] Last Admin: 02/19/20 09:51 Dose: 1 tab Documented by: Ondansetron HCl (Zofran) 4 mg IV Q4HP PRN; Protocol PRN Reason: Nausea And Vomiting Pantoprazole Sodium (Protonix) 40 mg PO BIDAC [facility] Last Admin: 02/19/20 06:58 Dose: 40 mg Documented by: Sevelamer Carbonate (Renvela) 1,600 mg PO TIDCC [facility] Last Admin: 02/19/20 09:51 Dose: 1,600 mg Documented by: Sodium Chloride (Saline Flush) 10 ml IV Q8 [facility] Last Admin: 02/19/20 06:00 Dose: 10 ml Documented by: Vitamin D (Vitamin D3) 2,000 unit PO DAILY [facility] Last Admin: 02/19/20 09:51 Dose: 2,000 unit Documented by: A/P Narrative A/P Narrative: * Lower GI bleed. GI consulted. On GoLYTELY prep * Syncope-Unknown etiology. Possibly hypotension following dialysis. hx of seizure disorder on keppra 500mg bid, no neurological changes or seizure episode noted during this hospitalization. CT head negative. Echocardiogram - unremarkable except for grade 3 diastolic dysfunction, no telemetry events. * Multifocal pneumonia on imaging. Likely aspiration or infection, on Zosyn Netromycin, COVID-19 negative. Isolation discontinued. 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 * CAD, s/p stenting, on statin , ASA held * paroxysmal atrial fibrillation, rate controlled. Continue Coreg. Not on anticoagulation. * ESRD on HD (MWF)Nephrology Dr. Pringle on board * Chronic elevation of troponin. Previous hospitalist explained to the patient that there is no board certified family physician or stress test available in this hospital. Patient fully understood and still would like to stay in the hospital. On aspirin and statin at home. * History of hypertension on home medications * DVT prophylaxis: SCDs * CODE STATUS: DNR and DNI. Plan * GI consult/colonoscopy today * Continue aspiration precautions/antibiotic coverage * Pre-existing medical condition management as above * Discharge planning per case management * Continue holding aspirin/heparin , continue SCDs Time Spent With Patient Time: Total time spent is greater than 50% in coordination of care (as documented) at patient's floor/unit and/or counseling patient: QUALITY VTE Deep Vein Thrombosis/Pulmonary Embolism Present on Admission: No
--- NOTE | 2020-02-19 13:10 | Cat Scan Report ---
CLINICAL INFORMATION: Heme positive stool COMPARISON: CT enterography four months prior - 10/16/2019 TECHNIQUE: 0.625 mm helical slices were obtained from the mid heart through the subtrochanteric regions. Following reconstruction, 2.5 mm sagittal, coronal and axial reformatted images were processed and reviewed at bone and soft tissue windows.The exam was performed using radiation dose optimization techniques including, but not limited to, automated exposure control, adjustment of the mA and/or kV according to patient size and use of iterative reconstruction technique. FINDINGS: Lung bases show small left pleural effusion which has decreased slightly. There is subsegmental atelectasis in the posterior left lower lobe. Heart is moderately enlarged with pacer leads in stable satisfactory position. Abdominal images show the noncontrasted liver, gallbladder and bile ducts, both adrenal glands, spleen, and pancreas are normal in size configuration and attenuation without focal lesion. Mild bilateral renal atrophy appreciated - each kidney is approximately 8 cm in length. No focal renal lesions. Very heavy atherosclerotic plaque present in the abdominal aorta and aortic branches - as previously seen., Remains normal diameter however. Pelvic images show hysterectomy/ oophorectomy changes in the urinary bladder is unremarkable. The stomach, small and large bowel show mild symmetric dilatation but no gross focal pathology identified to account for GI blood loss. Bone windows show mild, yet stable chronic L3 compression fracture. IMPRESSION: 1. Mild ileus pattern with moderate colonic stool. No gross pathology identified to explain GI blood loss. 2. Mild bilateral renal atrophy compatible with chronic renal disease. 3. Small left pleural effusion decreasing 4. Mild chronic L3 compression fractures stable Interpreted and Authenticated by: Pradeep Martines 02/19/20
[2020-02-19] MEDS ORDERED: KETAMINE HCL 50 MG/ML ML IV PRN (15:13)
[2020-02-19] MEDS ORDERED: PROPOFOL 200 MG/20 ML VIAL IV SCH (15:15)
[2020-02-19] MEDS ORDERED: MIDAZOLAM 2 MG/2 ML VIAL IV SCH (15:15)
--- NOTE | 2020-02-19 17:46 | Internal Medicine Consult Note ---
HPI Data of Consult Patient: new to practice Consult date: 02/19/20 Requesting physician: Eric Armstrong Primary Care Provider: Gifty Chisholm Consult Narrative Chief complaint: Anemia. Hematochezia. Reason for consult: Hematochezia. History of present illness: 74 year old white female with a history of atrial fibrillation, ESRD on dialysis and diabetes with neuropathy who is admitted after an episode of syncope at dialysis. She was found to have COVID negative pneumonia and anemia with a hgb 8.9. After starting ASA and heparin due to her history of atrial fibrillation, she began to have painless hematochezia. She denies any history of diarrhea, abdominal pain, constipation. Her primary complaint is actually peripheral neuropathy, which is inadequately controlled with her current dose of hydrocodone. Per nursing, she has passed several blood tinged stools (up to 6 a day) but this has decreased since starting colonoscopy prep. She has a vague history of lower GI bleed, treated at [facility] in [place], [place] in September 2019, which she says was due to "tears in my colon". Apparently, she was on anticoagulation at that time for atrial fibrillation, but this was discontinued after GI bleeding. I have sent a request for these records but was informed the request could not be urgently accommodated. cc:: CC: Britni Rodriguez Review of Systems All systems: reviewed and no additional remarkable complaints except as stated [facility] Medical History (Reviewed 02/19/20 @ 17:57 by Jocelyne Ortega [facility]) Acute exacerbation of CHF (congestive heart failure) (Resolved) Acute kidney injury superimposed on chronic kidney disease (Resolved) Acute on chronic renal failure (Resolved) Acute renal failure superimposed on stage 3 chronic kidney disease (Resolved) Acute respiratory failure with hypoxia (Resolved) AF (paroxysmal atrial fibrillation) (Chronic) Altered mental status (Resolved) Altered mental status (Resolved) Anemia (Resolved) Anemia due to end stage renal disease (Chronic) Anemia in ESRD (end-stage renal disease) (Chronic) Aranesp 80 ug / wed Anemia in stage 3 chronic kidney disease (Resolved) Artificial cardiac pacemaker (Chronic) defib??? Blepharitis of eyelid of right eye (Resolved) CAD (coronary artery disease) (Chronic) Chest pain (Resolved) CHF (congestive heart failure) (Acute) Chronic anticoagulation (Chronic) clopidrogel Chronic hyponatremia (Chronic) Chronic narcotic use (Resolved) CKD (chronic kidney disease), stage III (Resolved) CKD (chronic kidney disease), stage IV (Chronic) Colitis (Resolved) Community acquired pneumonia (Resolved) Contusion of left hand including fingers (Resolved) Contusion of left hip and thigh (Resolved) Contusion of rib on right side (Resolved) Contusion of right hand including fingers (Resolved) CVA (cerebral vascular accident) (Resolved) Dehydration (Resolved) Dementia (Chronic) Diabetes mellitus type 2 with complications (Chronic) Allowed herself to run low or out of Insulin Diabetic ketoacidosis associated with type 2 diabetes mellitus (Resolved) Diabetic peripheral neuropathy (Chronic) severe; AFO braces bilateral feet/ankles DNR no code (do not resuscitate) (Chronic) End-stage renal disease on hemodialysis (Chronic) MWF Fatigue (Resolved) Fever and chills (Resolved) Hematochezia (Acute) Hematoma (Resolved) Hemicrania (Resolved) History of recurrent UTI (urinary tract infection) (Chronic) Hyperglycemia due to type 2 diabetes mellitus (Chronic) Hypertensive renal disease (Chronic) BP at goal 138/66 ct coreg 6.25mg bid ct furosemide 20mg po daily follow low sodium diet will add losartan next visit if renal function is stable and she has no further complications Hypoglycemia (Resolved) Hypoglycemia (Resolved) Hypoglycemia (Resolved) Hypoglycemia (Resolved) Hyponatremia (Chronic) Result of hyperglycemia with H2O shift to blunt the rise in serum osm but case "pseudohyponatremia" Hypothyroidism, acquired (Chronic) Hypoxia (Resolved) Hypoxia (Resolved) Injury of right rotator cuff (Resolved) Left hand pain (Resolved) Lower gastrointestinal hemorrhage (Chronic) Metabolic acidosis (Resolved) Myoclonus (Chronic) Pneumonia (Resolved) Pneumonia (Resolved) Prerenal renal failure (Resolved) Right hand pain (Resolved) Secondary hyperparathyroidism of renal origin (Chronic) Seizure disorder (Chronic) Sinusitis (Resolved) Status post insertion of drug-eluting stent into left anterior descending (LAD) artery (Chronic) Sternal pain (Resolved) Syncope and collapse (Resolved) Syncope and collapse (Resolved) Toenail avulsion (Resolved) Upper gastrointestinal hemorrhage (Acute) Upper respiratory infection (Resolved) Urinary tract infection (Resolved) UTI (urinary tract infection) (Resolved) Vasovagal syncope (Resolved) Surgical History History of cataract extraction with lens replacement (Acute) Status cardiac pacemaker (Chronic) seen by [facility] Social History smoking status: Former smoker alcohol intake frequency: does not drink substance use type: does not use MEDS/ALLERGIES Home Medications and Allergies Home Medications Medication Instructions Recorded Confirmed Type levetiracetam 500 mg PO BID 11/10/16 02/16/20 History acetaminophen 650 mg PO Q4-6HP PRN #0 tab 11/24/16 02/16/20 Rx Accu-Chek 1 each FS ACHS strip 09/03/17 02/16/20 Rx loperamide 2 mg PO BIDP PRN 03/04/19 02/16/20 History captopril 12.5 mg PO TID #90 tab 03/09/19 02/16/20 Rx hydrocodone-acetaminophen 1 tab PO QHS 07/09/19 02/16/20 History levothyroxine 125 mcg PO DAILY 07/09/19 02/16/20 History lidocaine-prilocaine 1 each TP MOWEFR 07/09/19 02/16/20 History nitroglycerin 0.4 mg SL Q5M PRN 07/09/19 02/16/20 History sennosides 2 tab PO DAILY 07/09/19 02/16/20 History B complex-vitamin C-folic acid 1 tab PO DAILY 09/29/19 02/16/20 History blood-glucose meter #1 each 11/26/19 Rx Dialyvite 800 with Zinc 15 1 tab PO DAILY 01/18/20 02/16/20 History atorvastatin 80 mg PO QHS 01/18/20 02/16/20 History pantoprazole 40 mg PO DAILY 01/18/20 02/16/20 History sevelamer carbonate 1,600 mg PO TID 01/18/20 02/16/20 History gabapentin 300 mg PO BID 01/19/20 02/16/20 History Levemir FlexTouch U-100 Insuln 8 unit SUBCUT BID 01/20/20 02/17/20 History carvedilol 6.25 mg PO BID 01/20/20 02/16/20 History cefuroxime axetil 500 mg PO MoWeFr@1400 #2 tab 01/20/20 Rx insulin aspart U-100 [Novolog 2 unit SUBCUT ACHS 01/20/20 02/16/20 History Flexpen U-100 Insulin] calcium lactate 650 mg PO DAILY 02/16/20 02/16/20 History cholecalciferol (vitamin D3) 2,000 units PO DAILY 02/16/20 02/16/20 History clonidine 0.2 mg PO BID 02/16/20 02/16/20 History Allergies Allergy/AdvReac Type Severity Reaction Status Date / Time lactose AdvReac Mild Diarrhea Verified 02/16/20 12:40 EXAM Constitutional Vitals: Temp Pulse Resp BP Pulse Ox 98.0 F 60 20 173/75 99 02/19/20 15:57 02/19/20 17:15 02/19/20 17:15 02/19/20 17:15 02/19/20 17:15 Head Head exam: Present atraumatic, normal inspection and normocephalic Eye Eye exam: Present normal appearance; Absent scleral icterus ENT ENT exam: Present normal exam Respiratory Respiratory exam: Present normal respiratory exam; Absent accessory muscle use GI/Abdominal GI/Abdominal exam: Present normal bowel sounds and soft; Absent mass and organomegaly Additional comments: Brown liquid stool in commode with small amount of red blood. DATA Data Completed and Pending Labs on day of discharge: Labs from last 24 hours 02/19/20 02/19/20 02/16/20 04:47 04:47 15:25 WBC 5.1 RBC 3.08 L Hgb 9.3 L Hct 29.9 L MCV 97.1 MCH 30.2 MCHC 31.1 RDW 16.0 H Plt Count 230 MPV 9.6 Gran % 72.2 Lymph % (Auto) 14.5 L Potter % (Auto) 8.0 Eos % (Auto) 4.3 Baso % (Auto) 1.0 Gran # 3.69 Lymph # (Auto) 0.74 L Potter # (Auto) 0.41 Eos # (Auto) 0.22 Baso # (Auto) 0.05 Sodium 136 Potassium 4.1 Chloride 91 L Carbon Dioxide 31 H Anion Gap 14.0 BUN 21 Creatinine 2.3 H GFR Calculation 20 Glucose 225 H Uric Acid 2.8 Calcium 8.5 L Phosphorus 3.8 Magnesium 2.0 Total Bilirubin 0.6 Direct Bilirubin 0.3 GGT 76 H AST 16 ALT 10 Alkaline Phosphatase 158 H Lactate Dehydrogenase 185 Total Protein 6.0 Albumin 3.4 Globulin 2.6 Albumin/Globulin Ratio 1.3 Triglycerides 32 Nasal/Oral COVID-19 PCR No ncov rna detected COVID-19 PCR Interp Cov rna not detected Preliminary micro results at discharge 02/16/20 12:54 Blood Culture - Preliminary Blood 02/16/20 13:04 Blood Culture - Preliminary Blood A/P Narrative A/P Narrative: Hematochezia: Will proceed with colonoscopy. Differential diagnosis include diverticular bleed, angiodysplasia, colonic ulcer, hemorrhagic polyp, among others. Time Spent With Patient Time: Total time spent is greater than 50% in coordination of care (as documented) at patient's floor/unit and/or counseling patient: Total time spent with greater than 50% in coordination of care (as documented) at patient's floor/unit and/or counseling patient:: Greater than 35 minutes
--- NOTE | 2020-02-19 18:09 | Colonoscopy Procedure Note ---
Colonoscopy Procedure Notes Procedure Information Patient information: Note initiated : 02/19/20 at 6:05 pm Service Date: 02/19/20 Patient: Shanda Rhodes 74 y/o F admitted on 02/16/20 for hematochezia. Pre-op diagnosis general: GI bleed. Post-op diagnosis general: Angiodysplasia, right colon. Colonic polyps. Procedure: Colonoscopy with control of bleed Procedure narrative: The procedure, alternatives and risks were discussed with the patient and the patient's questions were answered. With endoscopist administered intravenous sedation, the Olympus colonoscope was introduced into the rectum and advanced to the cecum. Ileocecal valve was identified, intubated, and several centimeters of the terminal ileum were examined. There was a bleeding angiodysplasia with adherent clot in the proximal ascending colon near a previously placed endoclip. The clot was removed and the angiodysplasia was treated with APC and resolution clipped. Colonic polyps were seen in the ascending and transverse colon; polyps were removed with a snare. They were retrieved for histological examination. Assessment: Angiodysplasia, right colon. Colonic polyps. Image Colon: 1. Colonic polyp, snare polypectomy. 2. Colonic polyp, snare polypectomy. 3. Previously placed clip. 4. Bleeding angiodysplasia with clot.
[2020-02-19] MEDS: ATORVASTATIN 40 MG TABLET PO SCH (21:44)
[2020-02-19] MEDS: HYDROcodone/APAP 5/325MG TABLET PO SCH (21:44)
[2020-02-20] MEDS: ACETAMINOPHEN 325 MG TABLET PO PRN ×2 (03:35→09:31)
[2020-02-20] MEDS: 0.9 % SODIUM CHLORIDE 10 ML SYRINGE IV SCH (05:21)
[2020-02-20 06:53] LABS: Basophils # (Auto) 0.03 K/mcL (0.00-0.30); Basophils % (Auto) 0.6 % (0.0-2.0); Eosinophils # (Auto) 0.12 K/mcL (0.00-0.70); Eosinophils % (Auto) 2.2 % (0.0-7.0); Granulocytes % (Auto) 80.2 % (38.0-78.0); Hematocrit 28.2 % (34.1-44.9); Hemoglobin 9.2 g/dL (11.2-15.7); Lymphocytes # (Auto) 0.59 K/mcL (1.50-4.80); Mean Cell Volume 92.8 fL (80.0-100.0); Mean Corpuscular HGB Conc 32.6 g/dL (31.0-36.0); Mean Platelet Volume 9.6 fL (7.4-10.4); Monocytes # (Auto) 0.32 K/mcL (0.10-0.90); Platelet Count 223 K/mcL (140-440); RBC 3.04 M/mcL (3.59-5.38); Red Cell Distribution Width 15.5 % (11.5-14.5); WBC 5.4 K/mcL (4.50-11.00)
[2020-02-20 07:13] LABS: ALT/SGPT 9 U/l (0-40); AST/SGOT 15 U/l (0-37); Albumin 3.2 gm/dL (3.2-5.2); Albumin/Globulin Ratio 1.3 (1.0-2.3); Alkaline Phosphatase 151 U/L (39-117); Bilirubin,Direct 0.2 mg/dL (0.0-0.3); Bilirubin,Total 0.5 mg/dL (0.0-1.0); Calcium 8.5 mg/dl (8.6-10.4); Carbon Dioxide 26 mmol/L (22-30); Globulin 2.4 gm/dL (2.2-3.7); Lactate Dehydrogenase 175 U/L (94-250); Phosphorous 4.2 mg/dL (2.7-4.5); Triglycerides 36 mg/dl (<150); Uric Acid 4.3 mg/dL (2.5-8.0)
[2020-02-20] MEDS: PANTOPRAZOLE 40 MG TABLET PO SCH (07:21)
[2020-02-20] MEDS: LEVOTHYROXINE 125 MCG TABLET PO SCH (07:21)
[2020-02-20] MEDS: SEVELAMER 800 MG TABLET PO SCH (08:01)
[2020-02-20] MEDS: INSULIN LISPRO 1 UNIT/0.01 ML UNIT SQ SCH (08:01)
[2020-02-20] MEDS: INSULIN GLARGINE, HUMAN 1 UNIT/0.01 ML SQ SCH (08:02)
[2020-02-20] MEDS: LIDOCAINE/PRILOCAINE 5 GM TUBE TOPICAL SCH (08:03)
[2020-02-20 08:14] LABS: Blood Urea Nitrogen 32 mg/dl (8-23); Chloride 89 mmol/L (96-108); Glomerular Filtration Rate 13; Glucose 485 mg/dL (70-105)
[2020-02-20] MEDS: CAPTOPRIL 12.5 MG TABLET PO SCH (09:21)
[2020-02-20] MEDS: levETIRAcetam 500 MG TABLET PO SCH (09:21)
[2020-02-20] MEDS: FOLIC ACID/VITAMIN B COMP W-C 1 TAB TABLET PO SCH (09:21)
[2020-02-20] MEDS: CARVEDILOL 12.5 MG TABLET PO SCH (09:21)
--- NOTE | 2020-02-20 09:26 | Discharge Summary ---
Discharge Provider Provider Patient information: Note initiated : 02/20/20 at 9:24 am Service Date, if different from initiated Date: [] Patient: Shanda Rhodes a 74 y/o F admitted on 02/16/20 for blood sugar problem. Discharge diagnosis * Lower GI bleed. Status post colonoscopy. Angiodysplasia cauterized. We will follow-up with DONNA Riley as outpatient. * Syncope-Unknown etiology. Resolved with no further episode. Possibly hypotension following dialysis. Hx of seizure disorder on keppra 500mg bid, no neurological changes or seizure episode noted during this hospitalization. CT head negative. Echocardiogram -unremarkable except for grade 3 diastolic dysfunction, no telemetry events. * Multifocal pneumonia on imaging. Likely aspiration or infection, on Zosyn Netromycin, COVID-19 negative. Isolation discontinued. 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 * CAD, s/p stenting, on statin , ASA held * paroxysmal atrial fibrillation, rate controlled. Continue Coreg. Not on anticoagulation. * ESRD on HD ([facility])Nephrology DrGwen ongoing hemodialysis * Chronic elevation of troponin. Based on discussion with hospitalist Dr lee who explained to the patient that there is no hay baler or stress test available in this hospital. Patient fully understood and still would like to stay in the hospital. On aspirin and statin at home. * History of hypertension managed on home medications brief hospital course History of present illness: Ms. Rhodes is a 74 year old F with a history of diabetes, end-stage renal disease, congestive heart failure in association with atrial fibrillation status post permanent pacemaker placement who was brought to the ER due to 1 episode of syncope. Patient is a poor historian. Patient underwent dialysis today. After dialysis, she passed out. No witness. She is not sure for how long she lost consciousness. At that time, her blood sugar was 61. 1 amp D50 was given. When I saw this patient in the ER, she denied dizziness, nausea, vomiting or palpitation. She also denies fever, chills, chest pain, shortness of breath, abdominal pain, or diaphoresis. In the ER, chest x-ray showed aspiration or infection. Sugar level was a greater than 100. 02/16 Patient feels fine. Denies nausea, vomiting, dizziness, headache, chest pain, or shortness of breath. Vital signs are acceptable. Potassium 6.7 today. urgent treatment below was given: Calcium gluconate 1g iv once stat D50 + insulin once stat albuterol Nephrology Dr. Farris will give pt Stat HD today and possible tomorrow. 02/17-patient complains of blood smeared stool. Guaiac positive. Hemoglobin 8.9. Heparin and aspirin held. Ongoing hemodialysis. Denies chest pain. No telemetry events. GI consulted 02/18 -COVID-19 negative. Multiple bloody bowels overnight. Started on GoLYTELY. Case discussed with GI. Will undergo colonoscopy today. On PPI. Hemoglobin stable at 9.3. Continue every 6 hemoglobin checks. Off aspirin/heparin. Denies chest pain, lightheadedness, dizziness. Antibiotic coverage, continue aspiration precautions. Ongoing hemodialysis per nephrology. 02/19-patient doing well. Status post angiodysplasia clipping on colonoscopy. No further bleed. Ongoing hemodialysis. Feels at baseline. Discharging today with advised to continue hemodialysis outpatient and follow-up with GI as outpatient. Date of admission: 02/16/20 17:45 Discharge date: 02/20/20 Primary care physician: Gifty Chisholm Consults: 02/16/20 14:51 Consult to Physician [CONS] Stat Comment: Consulting Provider: Palmer Farris Reason For Exam: Physician to Consult 02/16/20 14:57 Consult to Physician [CONS] Stat Comment: Consulting Provider: Britni Lee Reason For Exam: Physician to Consult 02/18/20 10:55 Consult to Physician [CONS] Routine Comment: gi bleed Consulting Provider: Sarkis Boothe Reason For Exam: Physician to Consult Discharge Meds Discharge Medications Home Medications levetiracetam 500 mg PO BID 11/10/16 [History Confirmed 02/16/20 Last Taken 02/15/20 17:00] acetaminophen 650 mg PO Q4-6HP PRN #0 tab 11/24/16 [Rx Confirmed 02/16/20 Last Taken 02/15/20 21:00] Accu-Chek 1 each FS ACHS strip 09/03/17 [Rx Confirmed 02/16/20 Last Taken 02/16/20 07:00] loperamide 2 mg PO BIDP PRN 03/04/19 [History Confirmed 02/16/20 Last Taken 04/16/19] captopril 12.5 mg PO TID #90 tab 03/09/19 [Rx Confirmed 02/16/20 Last Taken 02/15/20 21:00] hydrocodone-acetaminophen 1 tab PO QHS 07/09/19 [History Confirmed 02/16/20 Last Taken 07/26/19 20:00] levothyroxine 125 mcg PO DAILY 07/09/19 [History Confirmed 02/16/20 Last Taken 02/15/20 08:00] lidocaine-prilocaine 1 each TP MOWEFR 07/09/19 [History Confirmed 02/16/20 Last Taken 02/16/20 07:00] nitroglycerin 0.4 mg SL Q5M PRN 07/09/19 [History Confirmed 02/16/20 Last Taken Unknown] sennosides 2 tab PO DAILY 07/09/19 [History Confirmed 02/16/20 Last Taken 07/26/19 08:00] B complex-vitamin C-folic acid 1 tab PO DAILY 09/29/19 [History Confirmed 02/16/20 Last Taken 02/15/20 08:00] blood-glucose meter #1 each 11/26/19 [Rx Last Taken Unknown] Dialyvite 800 with Zinc 15 1 tab PO DAILY 01/18/20 [History Confirmed 02/16/20 Last Taken 02/15/20 08:00] atorvastatin 80 mg PO QHS 01/18/20 [History Confirmed 02/16/20 Last Taken 02/15/20 20:00] pantoprazole 40 mg PO DAILY 01/18/20 [History Confirmed 02/16/20 Last Taken 02/15/20 08:00] sevelamer carbonate 1,600 mg PO TID 01/18/20 [History Confirmed 02/16/20 Last Taken 02/15/20 21:00] gabapentin 300 mg PO BID 01/19/20 [History Confirmed 02/16/20 Last Taken 02/15/20 20:00] carvedilol 6.25 mg PO BID 01/20/20 [History Confirmed 02/16/20 Last Taken 02/15/20 16:00] insulin aspart U-100 [Novolog Flexpen U-100 Insulin] 2 unit SUBCUT ACHS 01/20/20 [History Confirmed 02/16/20 Last Taken 02/15/20 17:00] calcium lactate 650 mg PO DAILY 02/16/20 [History Confirmed 02/16/20 Last Taken Unknown] cholecalciferol (vitamin D3) 2,000 units PO DAILY 02/16/20 [History Confirmed 02/16/20 Last Taken 02/15/20 08:00] clonidine 0.2 mg PO BID 02/16/20 [History Confirmed 02/16/20 Last Taken 02/15/20 17:00] insulin glargine [Lantus U-100 Insulin] 10 unit SQ DAILY #30 ml 02/20/20 [Rx Last Taken Unknown] COURSE Hospital Course Hospital course: . Discharge diagnosis: . Time Spent with Patient Time attestation: Total time spent providing and/or coordinating discharge services: EXAM Constitutional Vitals: Temp Pulse Resp BP Pulse Ox 97.6 F 60 22 117/94 87 L 02/20/20 08:51 02/19/20 17:15 02/20/20 07:00 02/20/20 08:51 02/20/20 08:51 Discharge Data Data Completed and Pending Labs on day of discharge: Labs from last 24 hours 02/20/20 02/20/20 05:30 05:30 WBC 5.4 RBC 3.04 L Hgb 9.2 L Hct 28.2 L MCV 92.8 MCH 30.3 MCHC 32.6 RDW 15.5 H Plt Count 223 MPV 9.6 Gran % 80.2 H Lymph % (Auto) 11.0 L [place] % (Auto) 6.0 Eos % (Auto) 2.2 Baso % (Auto) 0.6 Gran # 4.30 Lymph # (Auto) 0.59 L [place] # (Auto) 0.32 Eos # (Auto) 0.12 Baso # (Auto) 0.03 Sodium 131 L Potassium 4.6 Chloride 89 L Carbon Dioxide 26 Anion Gap 16.0 BUN 32 H Creatinine 3.3 H GFR Calculation 13 Glucose 485 H* Uric Acid 4.3 Calcium 8.5 L Phosphorus 4.2 Magnesium 2.0 Total Bilirubin 0.5 Direct Bilirubin 0.2 GGT 64 H AST 15 ALT 9 Alkaline Phosphatase 151 H Lactate Dehydrogenase 175 Total Protein 5.6 L Albumin 3.2 Globulin 2.4 Albumin/Globulin Ratio 1.3 Triglycerides 36 Preliminary micro results at discharge 02/16/20 12:54 Blood Culture - Preliminary Blood 02/16/20 13:04 Blood Culture - Preliminary Blood Discharge Plan Patient/Caregiver Discharge Instructions Activity: increase activity as tolerated Diet: Renal/Consistent Carbs Instructions: Heart Failure (GEN), Rectal Bleeding (GEN), Dialysis Diet (GEN), Pneumonia (GEN), Colonoscopy (GEN) Activity Restrictions/Additional Instructions: Follow-up with DONNA Ortega in 1 week Follow primary care physician in 2 weeks Continue hemodialysis per nephrology And follow-up with Dr. Farris nephrology Prescriptions: New Lantus U-100 Insulin 100 unit/mL Solution 10 unit SQ DAILY Qty: 30 RF: 0 Continued (DME) blood-glucose meter Misc See Rx Instructions .ROUTE .MEDSUPPLY Qty: 1 RF: 0 levetiracetam 500 MG tablet 500 mg PO BID RF: 0 acetaminophen 325 MG tablet 650 mg PO Q4-6HP PRN (Reason: Pain/Fever > 101) Qty: 0 RF: 0 Accu-Chek 1 EACH strip 1 each FS ACHS RF: 0 loperamide 2 MG capsule 2 mg PO BIDP PRN (Reason: Diarrhea) RF: 0 captopril 12.5 MG tablet 12.5 mg PO TID Qty: 90 RF: 0 hydrocodone-acetaminophen 1 TAB tablet 1 tab PO QHS RF: 0 levothyroxine 125 MCG tablet 125 mcg PO DAILY RF: 0 lidocaine-prilocaine 1 EACH kit 1 each TP MOWEFR RF: 0 nitroglycerin 0.4 MG tablet, sublingual 0.4 mg SL Q5M PRN (Reason: Chest Pain) RF: 0 sennosides 8.6 MG capsule 2 tab PO DAILY RF: 0 B complex-vitamin C-folic acid 1 EACH tablet 1 tab PO DAILY RF: 0 atorvastatin 80 mg Tablet 80 mg PO QHS RF: 0 pantoprazole 40 mg Tablet,Delayed Release (Dr/Ec) 40 mg PO DAILY RF: 0 sevelamer carbonate 800 mg Tablet 1,600 mg PO TID RF: 0 Dialyvite 800 with Zinc 15 1 tab PO DAILY RF: 0 gabapentin 300 mg capsule 300 mg PO BID RF: 0 carvedilol 12.5 mg tablet 6.25 mg PO BID RF: 0 insulin aspart U-100 [Novolog Flexpen U-100 Insulin] 100 unit/mL (3 mL) insulin pen 2 unit SUBCUT ACHS RF: 0 clonidine 0.2 mg tablet 0.2 mg PO BID RF: 0 calcium lactate 650 mg tablet 650 mg PO DAILY RF: 0 cholecalciferol (vitamin D3) 2,000 units PO DAILY RF: 0 Discontinued cefuroxime axetil 500 mg Tablet 500 mg PO MoWeFr@1400 Qty: 2 RF: 0 Levemir FlexTouch U-100 Insuln 100 unit/mL (3 mL) insulin pen 8 unit SUBCUT BID RF: 0 Follow Up Plan Follow up with: Katy Meza MD [Physician] - (Continue your current dialysis schedule) Gifty Chisholm ARNP [Primary Care Provider] - Sarkis Boothe MD [Physician] - 03/09/20 11:00 am Patient Disposition: Home, Self-Care Prognosis: Serious Rehab Potential: Fair I certify that the patient requires SNF services: No Overall status at discharge: patient is progressing back to baseline Discharge Orders: Discharge Order (Routine); Ordered 02/20/20 Ordered By: Eric MARTÍNEZ VTE Deep Vein Thrombosis/Pulmonary Embolism Present on Admission: No
[2020-02-20] MEDS: GABAPENTIN 300 MG CAPSULE PO SCH (09:31)
[2020-02-20] MEDS: VITAMIN D3 1,000 UNIT TABLET PO SCH (09:35)
--- NOTE | 2020-02-23 13:33 | Surgical Pathology Report ---
HISTOLOGY SPECIMEN MICROSCOPIC DIAGNOSIS SPECIMEN A - COLON, TRANSVERSE, POLYPECTOMY: -- TUBULAR ADENOMA. SPECIMEN B - COLON, ASCENDING, POLYPECTOMY: -- POLYPOID FRAGMENT OF COLONIC MUCOSA WITH SUPERFICIAL HYPERPLASTIC CHANGES. -- NO DYSPLASIA OR MALIGNANCY IDENTIFIED. (EBD:adj) CLINICAL HISTORY Bleeding. PROCEDURAL IMPRESSION Angiodysplasia right colon; polyps. GROSS DESCRIPTION Specimen A: Received in formalin labeled transverse polyp, is a minaya tissue fragment measuring 0.5 cm. Entirely submitted - one cassette. Specimen B: Received in formalin labeled ascending colon polyp, is a minaya tissue fragment measuring 0.2 cm. Entirely submitted - one cassette. (SES:sln) Electronically Signed by: Baylee Short M.D.
== END 2020-02-20 09:56 | disposition home or self-care (01) | DRG 312 ==
LOC: ED 12:35 → ICU 17:45
PROVIDERS: ADMIT Internal Medicine; ATTEND Internal Medicine